=== PATIENT | female | born 1980 | race Caucasian/White ===

== ENCOUNTER 2023-12-20 07:59 | Outpatient (CLI) | payer OTHER, SELFPAY ==
--- NOTE | ~2023-12-20 | MM_ITS ---
EXAMINATION: MM screening donell BI w marky HISTORY: Screening mammogram TECHNIQUE: Craniocaudal and mediolateral oblique 3-D tomosynthesis images were obtained and synthetic 2-D images were generated. CAD analysis was submitted and interpreted. COMPARISON: No prior mammogram is available for comparison at this institution. BREAST PARENCHYMAL COMPOSITION:Dense: The breasts are heterogeneously dense, which may obscure small masses. FINDINGS: Questionable low-density obscured mass at the upper, outer left breast. No suspicious abnor mality in the right breast. IMPRESSION: Possible obscured low-density mass of the upper, outer left breast. Spot compression views and ultras ound are recommended for further evaluation. BI-RADS Category 0: Incomplete: Needs additional imaging evaluation. Reviewed, dictated and finalized at [facility]. IMPRESSION: Possible obscured low-density mass of the upper, outer left breast. Spot compre ssion views and ultrasound are recommended for further evaluation. BI-RADS Category 0: Incomplete: Needs additional imaging evaluation.
== END 2023-12-20 08:00 | disposition home or self-care (01) ==
LOC: ANHIMG 08:03
DX: Z12.31 Encounter for screening mammogram for malignant neoplasm of breast (principal); R92.8 Other abnormal and inconclusive findings on diagnostic imaging of breast
CPT/HCPCS: 77063; 77067

== ENCOUNTER 2024-01-13 10:42 | Outpatient (CLI) | payer OTHER, SELFPAY ==
--- NOTE | ~2024-01-13 | MMUS_ITS ---
EXAMINATION: MM diagnostic donell LT w marky, US breast LT complete HISTORY: Follow-up left breast asymmetries TECHNIQUE: Additional 3-D tomosynthesis images of the left breast were performed and synthetic 2-D im ages were generated. CAD analysis was submitted and interpreted. High resolution complete left breast ultrasound was performed. COMPARISON: 12/20/2023 BREAST PARENCHYMAL COMPOSITION: Dense: The breasts are heterogeneously dense, which may obscure small masses FINDINGS: MAMMOGRAPHIC FINDINGS: Dense: The breasts are heterogeneously dense, which may obscure small masses. There are no discrete m asses or architectural distortion. No suspicious calcifications. ULTRASOUND: Complete US of all 4 quadrants of the left breast and retroareolar region was reviewed. There are mul tiple cysts of the left breast, largest at 12:00, 1 cm from the nipple measuring up to 3.1 cm. No shante picious sonographic abnormalities to suggest malignancy. IMPRESSION: 1. No evidence for malignancy in the left breast. Benign findings. 2. Routine yearly screening mammogram and regular clinical breast examination are recommended. BI-RADS Category 2: Benign finding(s). Reviewed, dictated and finalized at location B. IMPRESSION: 1. No evidence for malignancy in the left breast. Benign findings. 2. Routine yearly screening mammogram and regular clinical breast examination a re recommended. BI-RADS Category 2: Benign finding(s).
== END 2024-01-13 10:43 | disposition home or self-care (01) ==
LOC: ANHIMG 10:43
DX: R92.8 Other abnormal and inconclusive findings on diagnostic imaging of breast (principal)
CPT/HCPCS: 76641; 77061; 77065; G0279

== ENCOUNTER 2024-06-08 12:28 | Inpatient (IN) | payer OTHER, SELFPAY ==
[2024-06-08] VITALS (9 sets, daily range): BP systolic 115–146; BP diastolic 58–94; PULSE 40–54; RESP 14–22; TEMP 36.4; O2SAT 98–100; BMI 29.3
--- NOTE | ~2024-06-08 | XR_ITS ---
EXAMINATION: XR chest 2V DATE: 06/08/2024 14:11 INDICATION: Chest pain since last night TECHNIQUE: PA and lateral views of the chest were obtained. COMPARISON: Chest radiograph dated 06/12/18 FINDINGS: The lungs remain clear with no focal airspace opacities, pulmonary edema, pleural effusion or pneumot horax. The cardiomediastinal silhouette is normal. Mild mid thoracic spondylosis. IMPRESSION: 1. No acute cardiopulmonary disease. Reviewed, dictated and finalized at location A. [facility] RN
--- NOTE | ~2024-06-08 | XR_ITS ---
EXAMINATION: XR ERCP DATE: 06/10/2024 15:33 INDICATION: Choledocholithiasis. TECHNIQUE: 3 spot fluoroscopic images of the right upper quadrant were obtained during endoscopic ret rograde cholangiopancreatography (ERCP). Fluoroscopy exposure time was 325 seconds. COMPARISON: Cholangiogram 06/09/2024 FINDINGS: The endoscope is in the second portion the duodenum. There are surgical clips from cholecys tectomy. There is contrast in the common duct. There is a wire in the common duct. The common duct is enlarged. IMPRESSION: 1. Enlarged common duct. Please refer to the ERCP procedure note for additional details. Reviewed, dictated and finalized at location A. [facility]
--- NOTE | ~2024-06-08 | CT_ITS ---
EXAMINATION: CT abdomen pelvis w con DATE: 06/17/2024 13:31 INDICATION: Leukocytosis. TECHNIQUE: Computed tomography (CT) of the abdomen and pelvis was performed without intravenous contr ast. Automated exposure control and iterative reconstruction technique were employed. The dose-length product was 678.26 mGy-cm. COMPARISON: CT abdomen and pelvis 06/12/2024 FINDINGS: The visualized portions of the lung bases demonstrate smooth septal thickening, consistent mild pulmonary edema. There is mild dependent atelectasis bilaterally. There are small pleural effusi ons. The heart size is normal. There is a trace pericardial effusion. The liver is normal. There are changes of cholecystectomy. The spleen is normal. There is fluid and fat stranding around the pancrea s with altered morphology of the border of the pancreas. The adrenal glands and kidneys are normal. T here is a 3.5 cm cyst in left ovary, likely a follicular cyst. There are no dilated loops of bowel. T he appendix is normal. There are no pathologically enlarged lymph nodes. There is a small volume of a scites. Body wall edema is noted. There is mild thoracic spondylosis. IMPRESSION: 1. Mild pulmonary edema. 2. Small pleural effusions. 3. Stable findings of acute pancreatitis with peripancreatic necrosis. 4. 3.5 cm cyst in left ovary, likely a follicular cyst. Reviewed, dictated and finalized at location A. ELING MACHINE OPERATOR
--- NOTE | ~2024-06-08 | US_ITS ---
EXAMINATION: US abdomen limited DATE: 06/08/2024 17:26 INDICATION: Right upper quadrant abdominal pain and elevated liver enzymes. TECHNIQUE: Multiple grayscale and Doppler ultrasound images of the abdomen were obtained. COMPARISON: CT dated 06/08/2024 FINDINGS: Visualized portion of the pancreatic body is normal in appearance. The pancreatic head and tail are o bscured. Liver has normal echogenicity and contour, with a smooth surface. No liver lesion identified . No intrahepatic biliary duct dilation suspected. Portal venous flow was seen in the hepatopetal, no rmal direction and has normal Doppler waveform. There is some hypoechoic sludge in the gallbladder. No definitive shadowing cholelithiasis identified however this may be due to the tiny size of the zan cified gallstones seen on the prior CT. Gallbladder is otherwise normal with no abnormal wall thicken ing. The proximal common bile duct measures 4-5 mm in diameter. The more distal common bile duct whic h appeared dilated to 8 mm on the immediately prior CT is obscured along the head of the pancreas. Pa yuko had received morphine precluding diagnostic assessment of a sonographic Harman sign. Visual is portions of the right kidney demonstrates normal contour and Before meals with no hydronephrosis. IMPRESSION: 1. Gallbladder sludge without evident shadowing cholelithiasis over this might be due to the relative ly tiny size of the few calcific stone seen on prior CT. 2. Normal proximal common bile duct measurement of 4-5 mm however the more distal duct which was dila chester to [address] is obscured. If there is continued clinical concern for biliary obstruction w ould consider MRCP for further evaluation. Reviewed, dictated and finalized at location A. O COMMUNICATIONS MECHANICIAN IMPRESSION: 1. Gallbladder sludge without evident shadowing cholelithiasis over this might be due to the relatively tiny size of the few calcific stone seen on prior CT. 2. Normal proximal common bile duct measurement of 4-5 mm however the more dist al duct which was dilated to [address] is obscured. If there is continue d clinical concern for biliary obstruction would consider MRCP for further eval uation.
--- NOTE | ~2024-06-08 | XR_ITS ---
EXAM: XR abdomen gastric tube insert DATE: 06/18/2024 15:01 HISTORY: NG Placement . COMPARISON: CT abdomen pelvis 06/17/2024. FINDINGS: Moderate diffuse reticular opacities in the lungs. NG tube, tip and side port project over the stomach. Cholecystomy clips. Normal upper abdominal bowel gas pattern. No organomegaly. No abnor mal upper abdominal calcification. Regional bones and soft tissues normal for age. IMPRESSION: NG tube, in good position. Moderate interstitial edema. Reviewed, dictated and finalized at location K. ER FEEDER
--- NOTE | ~2024-06-08 | XR_ITS ---
EXAMINATION: XR abdomen/kub 1V DATE: 06/15/2024 00:36 INDICATION: Small bowel obstruction. TECHNIQUE: A supine view of the abdomen on 2 radiographs was obtained. COMPARISON: CT abdomen and pelvis 06/12/2024 FINDINGS: There are no dilated loops of bowel. There is a small volume of stool in the colon. Surgica l clips in the right upper quadrant are likely from cholecystectomy. IMPRESSION: 1. Nonobstructive bowel gas pattern. Reviewed, dictated and finalized at location A. [employer]
--- NOTE | ~2024-06-08 | XR_ITS ---
EXAMINATION: XR chest 1V portable DATE: 06/14/2024 11:43 INDICATION: Pleural effusion. TECHNIQUE: A single frontal view of the chest was obtained. COMPARISON: Chest 2 views 06/08/2024, CT abdomen and pelvis 06/12/2024 FINDINGS: There are airspace opacities in left lower lung zone. There is a small left pleural effusio n. No pneumothorax. The heart size is normal. IMPRESSION: 1. Worsened airspace opacities in left lower lung zone, consistent with atelectasis versus pneumonia. 2. Small left pleural effusion. Reviewed, dictated and finalized at location A. ORY EXPERT IMPRESSION: 1. Worsened airspace opacities in left lower lung zone, consistent with atelect asis versus pneumonia. 2. Small left pleural effusion.
--- NOTE | ~2024-06-08 | XR_ITS ---
EXAMINATION: XR cholangiogram surg 1st inj DATE: 06/09/2024 17:50 INDICATION: Cholelithiasis. TECHNIQUE: 190 intraoperative fluoroscopic views of the abdomen were obtained. I was not present. Flu oroscopy exposure time was 30 seconds. COMPARISON: MRCP 06/09/2024 FINDINGS: There are surgical clips from cholecystectomy. There is a 4 mm stone in the distal common b ile duct. There are two 3 mm filling defects in the cystic duct. Contrast passes to the duodenum. IMPRESSION: 1. 4 mm stone in the distal common bile duct. 2. Two 3 mm filling defects in the cystic duct which may be gas bubbles or stones. Reviewed, dictated and finalized at location A. TURNER IMPRESSION: 1. 4 mm stone in the distal common bile duct. 2. Two 3 mm filling defects in the cystic duct which may be gas bubbles or ston es.
--- NOTE | ~2024-06-08 | MR_ITS ---
EXAMINATION: MR MRCP wo/w con/w 3D wo ind DATE: 06/09/2024 10:48 INDICATION: Epigastric pain. Transaminitis. TECHNIQUE: Magnetic resonance imaging (MRI) of the abdomen was performed without and with 14 mL Multi gary intravenous contrast. Sequences included coronal T2-weighted SS-FSE, coronal T2-weighted FS SS- FSE, coronal T2-weighted FS FIESTA, axial T2-weighted FS FIESTA, axial T2-weighted FIESTA, sagittal T 2-weighted SS-FSE, axial T1-weighted dual-echo FSPGR, axial T2-weighted SS-FSE, axial T1-weighted LAV A, axial T2-weighted STIR FSE. Thick-slab T2-weighted FRFSE-XL images were obtained for magnetic reso nance cholangiopancreatography (MRCP). Rotating maximum intensity projection 3-D reconstructions of t he volumetric data were created by the technologist. Postcontrast sequences included a time course of axial T1-weighted LAVA. COMPARISON: None. FINDINGS: ABDOMEN MRI: Heart size is normal. No effusion. Trace bilateral pleural effusions with T2 hyperintens e peripheral septal line thickening in the dependent lungs suggesting mild pulmonary edema. 2.2 x 1.8 cm cluster of a few small simple appearing cysts within intervening septations in the left breast wi th similar appearance to breast ultrasound performed on 01/13/2024. Multiple low signal intensity gall stones within the normal-appearing gallbladder. There is a low confluence of the cystic duct which is dilated to 4 mm in the distal common bile duct is also mildly dilated measuring up to 8 mm in diamet er. There is a 3-4 mm gallstone in the cystic duct. Liver is normal. Trace amount of perihepatic and perisplenic ascites. Spleen, pancreas, bilateral adrenal glands and kidneys are normal. Visualized po rtions of bowels are unremarkable. No pathologically enlarged abdominal lymphadenopathy. Bones are un remarkable with normal marrow signal throughout. ABDOMEN MRCP: The MRCP images are limited by motion artifact yielding no additional information beyond that obtaine d on the remaining MR sequences. IMPRESSION: 1. Cholelithiasis with 3-4 mm stone in the cystic duct which has a low confluence with the distal com mon bile duct. No dilation of the gallbladder to suggest a significant obstruction or acute cholecyst itis. 2. Mild pulmonary edema, trace bilateral pleural effusions and trace amount of perihepatic and perisp lenic ascites. Reviewed, dictated and finalized at location A. OL CUSTODIAN IMPRESSION: 1. Cholelithiasis with 3-4 mm stone in the cystic duct which has a low confluen ce with the distal common bile duct. No dilation of the gallbladder to suggest a significant obstruction or acute cholecystitis. 2. Mild pulmonary edema, trace bilateral pleural effusions and trace amount of perihepatic and perisplenic ascites.
--- NOTE | ~2024-06-08 | CT_ITS ---
CT of the Abdomen and Pelvis: Indication: Abdominal pain, post ERCP pancreatitis Technique: 2.5 mm axial scans were obtained through the abdomen and pelvis following intravenous adm inistration of 100 cc of Omnipaque 350. Dose reduction technique was used on this scan by utilizing a utomated exposure control and iterative reconstruction technique. The dose-length product (DLP) was 6 53.92 mGy-cm. COMPARISON: 06/10/2024 Findings: Scans through the lung bases demonstrate small to moderate right pleural effusion and smal l left pleural effusion. There is mild bibasilar atelectatic change. The liver, spleen, adrenals and kidneys are within normal limits. Status post cholecystectomy. There is extensive peripancreatic fluid/inflammatory change, compatible with acute pancreatitis, certainly worsened from prior exam. No evidence for pancreatic necrosis or pseudocyst. Fluid extends into the r ight paracolic gutter and pelvis. No evidence of aortic aneurysm. No lymphadenopathy. No bowel obstruction or bowel wall thickening. There is no evidence to suggest acute appendicitis. Images through the pelvis were performed. 3.6 cm left adnexal cyst present. Urinary bladder unremarka ble. No other pelvic mass seen. Impression: Acute pancreatitis, with significant interval worsening of peripancreatic fluid and inflammatory damian ge, with fluid extending into the right paracolic gutter and pelvis. No pancreatic necrosis or pseudo cyst. 3.6 cm left ovarian cyst. [id number] right pleural effusion and small left pleural effusion. Reviewed, dictated and finalized at [facility]. UTE RESOLUTION ANALYST Impression: Acute pancreatitis, with significant interval worsening of peripancreatic fluid and inflammatory change, with fluid extending into the right paracolic gutter and pelvis. No pancreatic necrosis or pseudocyst. 3.6 cm left ovarian cyst. [id number] right pleural effusion and small left pleural effusion.
--- NOTE | ~2024-06-08 | XR_ITS ---
XR chest 1V portable DATE: 06/14/2024 21:42 INDICATION: Labored breathing, increased shortness of breath TECHNIQUE: Portable upright AP chest on 06/14/2024 at 2134 hours COMPARISON: 06/14/2024 portable AP chest at 1139 hours FINDINGS: There are scattered bilateral patchy infiltrates, most prominent in the lower lung zones, i ncreased since 06/14/2024 at 1139 hours. Normal heart size. No hilar or mediastinal enlargement. Included skeletal structures are unremarkable. IMPRESSION: Scattered bilateral patchy pulmonary infiltrates, most prominent in the lower lobes, incr eased since earlier today, suggesting worsening bilateral pneumonia Reviewed, dictated and finalized at location A. UE AND GROOVE MACHINE SETTER IMPRESSION: Scattered bilateral patchy pulmonary infiltrates, most prominent in the lower lobes, increased since earlier today, suggesting worsening bilateral pneumonia
--- NOTE | ~2024-06-08 | XR_ITS ---
XR abdomen/kub 1V Ordering provider: Kyle Boothe MD History: . abd pain post ERCP . Comparison: None. FINDINGS: BOWEL: Contrast is seen in the right side of the colon. Nonobstructive bowel gas pattern. Contrast se en in the gallbladder. ORGANOMEGALY: None. SIGNIFICANT PATHOLOGIC CALCIFICATIONS: None. OTHER: No free air is seen under the diaphragm. Sagittal clips in the right upper quadrant. IMPRESSION: NO definite ACUTE ABDOMINAL FINDINGS. Contrast seen in the right side of the colon and in the gallbladder. Reviewed, dictated and finalized at location A. ATION SALES CONSULTANT
--- NOTE | ~2024-06-08 | CT_ITS ---
EXAMINATION: CTA chest PE protocol DATE: 06/15/2024 00:02 INDICATION: Shortness of breath. TECHNIQUE: Computed tomography angiography (CTA) of the chest was performed with 100 mL Omnipaque-350 intravenous contrast timed to evaluate the pulmonary arteries. Coronal maximum intensity projection 3D-reconstructions were created by the technologist. Automated exposure control and iterative reconst ruction technique were employed. The dose-length product was 296.65 mGy-cm. COMPARISON: None. FINDINGS: There is mild atelectasis in the lungs. There are small pleural effusions. The heart size i s normal. No pericardial effusion. There is no pulmonary embolus. There is fat stranding and fluid ar ound the pancreas, consistent with pancreatitis. There are changes of cholecystectomy. Body wall kathleen a is noted. There is mild thoracic spondylosis. IMPRESSION: 1. No pulmonary embolus. 2. Small pleural effusions. 3. Acute interstitial pancreatitis. Reviewed, dictated and finalized at location A. ERSAL GRINDER TOOL
--- NOTE | ~2024-06-08 | CT_ITS ---
EXAMINATION: CT abdomen pelvis w con DATE: 06/08/2024 15:04 INDICATION: Epigastric pain. Elevated liver enzymes. TECHNIQUE: Computed tomography (CT) of the abdomen and pelvis was performed with 100 mL Omnipaque-350 intravenous contrast. Automated exposure control and iterative reconstruction technique were employe d. The dose-length product was 437.56 mGy-cm. COMPARISON: None FINDINGS: Lung bases are clear. Heart size normal. No pericardial or pleural effusion. Minimal central intrahep atic biliary ductal dilation. Liver is otherwise normal. Tiny calcified gallstones in the dependent a spect of the normal-appearing gallbladder. There is mild dilation of the common bile duct measuring u p to 8 mm but without evident distal obstructing stone. No abnormal gallbladder wall thickening or pe richolecystic inflammatory stranding to elevate suspicion for acute cholecystitis. Pancreas, spleen, bilateral adrenal glands and kidneys are normal. Bowels including the appendix are normal. 3.7 cm lef t adnexal cyst. Bladder, uterus and right adnexa are unremarkable. No free intraperitoneal gas or flu id. No pathologically enlarged abdominal or pelvic lymphadenopathy. Mild lumbar levocurvature with mi ld spondylosis. IMPRESSION: 1. Cholelithiasis with mild dilation the common bile duct 8 mm in minimal central and hepatic biliary ductal dilation. No distal obstructing stone identified although could consider MRCP for more sensit tabatha evaluation as clinically indicated. 2. 3.7 cm left adnexal cyst. Reviewed, dictated and finalized at location A. IFIED DENTAL ASSISTANT IMPRESSION: 1. Cholelithiasis with mild dilation the common bile duct 8 mm in minimal centr al and hepatic biliary ductal dilation. No distal obstructing stone identified although could consider MRCP for more sensitive evaluation as clinically indica chester. 2. 3.7 cm left adnexal cyst.
--- NOTE | ~2024-06-08 | CT_ITS ---
EXAMINATION: CT abdomen pelvis w con DATE: 06/10/2024 21:36 INDICATION: Abdominal pain. TECHNIQUE: Computed tomography (CT) of the abdomen and pelvis was performed with 100 mL Omnipaque 350 intravenous contrast. Automated exposure control and iterative reconstruction technique were employe d. The dose-length product was 749.90 mGy-cm. COMPARISON: CT abdomen and pelvis 06/08/2024 FINDINGS: The visualized portions of lung bases demonstrate small pleural effusions. There is mild de pendent atelectasis bilaterally. The liver and spleen are normal. There are changes of cholecystectom y. The common duct is normal and measures 9 mm. There are foci of gas in the peritoneum and anterior abdominal wall, consistent with recent surgery. There is fat stranding around the pancreas, consisten t with acute interstitial pancreatitis. The adrenal glands and kidneys are normal. There is a 2.9 cm dominant follicle in the left ovary. There are no dilated loops of bowel. The appendix is normal. The re are no pathologically enlarged lymph nodes. There is physiologic fluid in the pelvis. There is mil d thoracic spondylosis. IMPRESSION: 1. Acute interstitial pancreatitis. 2. Small pleural effusions. Reviewed, dictated and finalized at location A. WARE SYSTEMS ANALYST
--- NOTE | 2024-06-08 12:31 | ECG_ITS ---
Test Date: 2024-06-08 12:37:17 Measurements Intervals [place] Rate: 50 P: 49 HI: 153 QRS: 28 QRSD: 78 T: 45 QT: 432 QTc: 396 Interpretive Statements SINUS BRADYCARDIA No previous ECG available for comparison Electronically Signed On 06-08-2024 21:21:04 WASHER ASSEMBLER by Roseline Zamudio M.D.
[2024-06-08 13:35] LABS: Basophils Percent Auto 0.3 % (0.2-1.2); Eosinophils Absolute Auto 0.1 K/mm3 (0-0.3); Eosinophils Percent Auto 1.1 % (0-4.4); Hematocrit 44.6 % (37.0-47.0); Hemoglobin 15.4 g/dL (12.0-15.0); Immature Granulocyte Absolute 0.02 K/mm3 (0.00-0.031); Immature Granulocyte Percent A 0.3 % (0-0.5); Lymphocytes Absolute Auto 1.22 K/mm3 (0.9-3.2); Lymphocytes Percent Auto 19.1 % (18.3-44.2); Mean Corpuscular HGB Conc 34.5 g/dl (32-36); Mean Corpuscular Hemoglobin 30.7 pg (26-34); Mean Corpuscular Volume 88.8 fl (80-100); Monocytes Absolute Auto 0.3 K/mm3 (0.1-0.6); Monocytes Percent Auto 4.1 % (2.6-8.5); Neutrophils Absolute Auto 4.8 K/mm3 (1.3-6.7); Neutrophils Percent Auto 75.1 % (45.5-73.1); Platelet Count Result 316 k/mm3 (150-375); Red Blood Count 5.02 M/mm3 (4.2-5.4); Red Cell Distribution Width 11.8 % (11.5-14.5); White Blood Count 6.4 K/mm3 (4.5-10.0)
[2024-06-08 13:52] LABS: Prothrombin Time 13.6 Seconds (11.1-14.7)
[2024-06-08 13:53] LABS: Partial Thromboplastin Time 24.1 Seconds (22.3-36.8)
[2024-06-08 13:57] LABS: Troponin I < 0.012 ng/mL (0.000-0.034)
[2024-06-08 13:59] LABS: Albumin Level 4.3 g/dL (3.5-5.1); Alkaline Phosphatase 161 U/L (38-126); Anion Gap 3 mmol/L (4-12); Bilirubin,Total 2.4 mg/dL (0.2-1.3); Blood Urea Nitrogen 14 mg/dL (7-17); Calcium 9.9 mg/dL (8.4-10.2); Carbon Dioxide 28 mmol/L (22-30); Chloride 106 mmol/L (98-107); Estimated Glomerular Filt Rate > 60; Glucose 129 mg/dL (65-110); Lipase 95 U/L (23-300); Potassium 3.7 mmol/L (3.4-5.0); Sodium 137 mmol/L (137-145)
[2024-06-08 14:11] LABS: Influenza A QL RT-PCR Negative (Negative); Influenza B QL RT-PCR Negative (Negative); RSV RNA, RT-PCR Negative (Negative); SARS-CoV-2 RNA PCR Negative (Negative)
[2024-06-08 14:41] LABS: Alanine Aminotransferase 812 U/L (6-35); Aspartate Amino Transferase 1378 U/L (14-36)
--- NOTE | 2024-06-08 15:03 | ED_ITS ---
HPI - Chest Pain General Chief Complaint: Chest Pain Stated Complaint: chest pain Time Seen by Provider: 06/08/24 14:39 History of Present Illness HPI narrative: 43 y/o female presents with epigastric abdominal pain that started last night at 8pm. patient states the pain increases with laying her left side. patient denies hx of heart issues. patient has a hx of kidney issues. patient also states she has been battling a URI for 4 days. no other complaints. Onset (ago): day(s) (5) Related Data Home Medications ?Medication ?Instructions ?Recorded ?Confirmed ?Last Taken ?Type No Home Medications 08/06/22 06/08/24 Unknown History Allergies Allergy/AdvReac Type Severity Reaction Status Date / Time ampicillin Allergy Severe Rash Verified 06/08/24 12:29 Review of Systems 2 Review of Systems: All systems reviewed & are unremarkable except as noted in HPI and below Cardiovascular: Cardiovascular: Reports chest pain Gastrointestinal: Gastrointestinal: Reports abdominal pain and Reports nausea PMFSH Past Medical History Medical History (Updated 06/08/24 @ 16:23 by Edwin Meadows APRN) Minimal change disease Nephrotic syndrome Proteinuria Social History Social History (Updated 08/06/22 @ 15:38 by Licha Irene [facility]) Smoking status: Never smoker Alcohol intake: current Drinks per week: 1 Substance use: never Do You Feel Safe in your Home?: Yes Lack of Transportation: No Lack of Food: Never True Current Housing: I Have Housing Concerned About Future Housing: No Difficulty Paying Gas/Electric Bills: No Difficulty Paying for Meds: No Currently Unemployed: No Education: Associate Degree Difficulty w/ Childcare or Family Care: No Spiritual care concerns: No Exam 2 Const: General: healthy appearing and no acute distress HENMT: Head: normal to inspection Eyes: Conjunctivae: conjunctivae normal Neck: Neck: normal visual inspection Chest: Chest palpation & inspection: tenderness sternum and xiphoid process Resp: Effort & Inspection: normal respiratory effort Cardio: Rate: bradycardic Rhythm: regular rhythm GI: GI Palp: Yes Tenderness to palpation present (GI) (epigastric) Back/Spine/Pelvis: Back: no CVA tenderness Skin: General skin exam: normal color Neuro: General: patient oriented x3 Extrem: General: normal to inspection Course Course Emergency Course: patient has elevated LFT's. CT scan shows cholelithiasis and mild dilation of cbd at 8mm. will order RUQ abdominal ultrasound Will admit the patient to GI via the hospitalist for further evaluation of transaminitis and MRCP. Patient accepted by her hospitalist service Consultations Consultation #1: Dr. Smith with GI Date: 06/08/24 Time: 16:05 Vital Signs Vital signs: Vital Signs Pulse Rate 50 L 06/08/24 12:31 Respiratory Rate 14 06/08/24 12:31 Blood Pressure 141/84 H 06/08/24 12:31 Pulse Oximetry 100 06/08/24 12:31 Temperature 36.4 C L 06/08/24 18:34 Pulse Rate 40 L 06/08/24 18:34 Respiratory Rate 15 06/08/24 18:34 Blood Pressure 125/80 06/08/24 18:34 Pulse Oximetry 100 06/08/24 18:34 Oxygen Delivery Room Air 06/08/24 14:38 MDM - Chest Pain MDM Narrative Medical decision making narrative: Patient will be admitted to hospitalist service with GI consult. MRCP ordered per GI's request. Differential Diagnosis Differential diagnosis: Likely other (gallbladder dysfunction vs acs vs pancreatitis vs GERD) Medical Records Data Medical records narrative: Patient was admitted for transaminitis and concerned for gallstone in CBD. patient accepted by hospitalist and GI. patient will be on telemetry r/t bradycardia Lab Data 06/08/24 13:28 06/08/24 13:28 Labs: Lab Results 06/08/24 Range/Units 13:28 WBC 6.4 (4.5-10.0) K/mm3 RBC 5.02 (4.2-5.4) M/mm3 Hgb 15.4 H (12.0-15.0) g/dL Hct 44.6 (37.0-47.0) % MCV 88.8 (80-100) fl MCH 30.7 (26-34) pg MCHC 34.5 (32-36) g/dl RDW 11.8 (11.5-14.5) % Plt Count 316 (150-375) k/mm3 MPV 9.0 (7.4-10.4) fl Immature Gran % (Auto) 0.3 (0-0.5) % Neut % (Auto) 75.1 H (45.5-73.1) % Lymph % (Auto) 19.1 (18.3-44.2) % [place] % (Auto) 4.1 (2.6-8.5) % Eos % (Auto) 1.1 (0-4.4) % Baso % (Auto) 0.3 (0.2-1.2) % Lymph # (Auto) 1.22 (0.9-3.2) K/mm3 [place] # (Auto) 0.3 (0.1-0.6) K/mm3 Eos # (Auto) 0.1 (0-0.3) K/mm3 Baso # (Auto) 0.0 (0.0-0.1) K/mm3 Abs Immat Gran (auto) 0.02 (0.00-0.031) K/mm3 Absolute Neuts (auto) 4.8 (1.3-6.7) K/mm3 Absolute Nucleated RBC 0.000 (0.0-0.012) K/mm3 Nucleated RBC % 0.0 (0.0-0.2) % PT 13.6 (11.1-14.7) Seconds INR 1.0 APTT 24.1 (22.3-36.8) Seconds Sodium 137 (137-145) mmol/L Potassium 3.7 (3.4-5.0) mmol/L Chloride 106 (98-107) mmol/L Carbon Dioxide 28 (22-30) mmol/L Anion Gap 3 L (4-12) mmol/L BUN 14 (7-17) mg/dL Creatinine 0.90 (0.7-1.0) mg/dL Estim Creat Clear Calc Not Reportable Estimated GFR > 60 (59 - ) Glucose 129 H (65-110) mg/dL Calcium 9.9 (8.4-10.2) mg/dL Total Bilirubin 2.4 H (0.2-1.3) mg/dL AST 1378 H (14-36) U/L ALT 812 H (6-35) U/L Alkaline Phosphatase 161 H (38-126) U/L Troponin I < 0.012 (0.000-0.034) ng/mL Total Protein 8.0 (6.3-8.2) g/dL Albumin 4.3 (3.5-5.1) g/dL Lipase 95 (23-300) U/L Influenza A (RT-PCR) Negative (Negative) Influenza B (RT-PCR) Negative (Negative) RSV (RT-PCR) Negative (Negative) SARS-CoV-2 RNA (RT-PCR) Negative (Negative) Discharge Plan Discharge Clinical Impression: Transaminitis, Acute epigastric pain Patient Disposition: Acute Care Hospital Condition: Stable Time of Disposition: 16:23
[2024-06-08] MEDS: SODIUM CHLORIDE 0.9% IV 1,000 ML 30 ML IV CONT (15:23)
[2024-06-08] MEDS: MORPHINE SULFATE (*CRX) 4 MG/ML INJ IV PUSH (15:24)
--- NOTE | 2024-06-08 17:15 | P.HP_ITS ---
H&P: HPI History of Present Illness Date/Time: 06/08/24 16:15 Chief Complaint: Epigastric pain. Narrative: This is a 43-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 The patient provides the following history. She had pizza for dinner last night and about 3 hours later she developed sudden onset epigastric pain which she halima cribes as sharp and occasionally tight and squeezing in nature with some radiation to the back. It is colicky in nature and she was able to sleep a few hours last night. Unfortunately the pain has been severe and constant since earlier this morning. Associated symptoms include nausea but no vomiting. Last bowel movement was yesterday morning and it was unremarkable. She also mentions having some sinus congestion the last few days. She denies fever, headache, neck ache, vomiting, melena, hematochezia, bloating, belching, exertional chest pain, shortness a breath, syncope, and near syncope. In the ED: she was afebrile on arrival and her blood pressures have been stable. Heart rate has ranged from the upper 30s to low 50s and she reports her baseline heart rate is in the 60s to low 70s. Labs were significant for WBC count of 6.4, hemoglobin 15.4, total bilirubin 2.4, AST 1378, ALT 812, alkaline phosphatase 161, troponin less than 0.012, lipase 95. She was negative for influenza, RSV, and COVID. CT of the abdomen and pelvis showed cholelithiasis with mild dilatation of the common bile duct measuring 8 mm and hepatic biliary ductal dilatation and a 3.7 cm left adnexal mass. She was given IV fluids, analgesics, and antiemetics and she is being admitted in this setting for further workup and GI consultation. Review of Systems Review of Systems: 12 systems were reviewed and are negativ e except for as per HPI. [facility] Past Medical History Medical History (Updated 06/08/24 @ 23:01 by Varsha Parrish PA-C) Minimal change disease Nephrotic syndrome Proteinuria Surgical History Surgical History (Updated 06/08/24 @ 23:01 by Varsha Parrish PA-C) History of biopsy of kidney Social History Social History (Updated 06/08/24 @ 22:59 by Varsha Parrish PA-C) Social History: Surrogate medical decision maker: Lobito Devlin, spouse. Code status: Full code. Smoking status: Never smoker Alcohol intake: current Drinks per week: 1 Substance use: never Do You Feel Safe in your Home?: Yes Lack of Transportation: No Lack of Food: Never True Current Housing: I Have Housing Concerned About Future Housing: No Difficulty Paying Gas/Electric Bills: No Difficulty Paying for Meds: No Currently Unemployed: No Education: Associate Degree Difficulty w/ Childcare or Family Care: No Spiritual care concerns: No Meds Home Medications and Allergies Home Medications ?Medication ?Instructions ?Recorded ?Confirmed ?Type No Home Medications 08/06/22 06/08/24 History Allergies Allergy/AdvReac Type Severity Reaction Status Date / Time ampicillin Allergy Severe Rash Verified 06/08/24 12:29 Vital Signs Vital Signs - 24 hr 06/08/24 12:31 06/08/24 13:05 06/08/24 14:38 Temperature 97.5 F L Pulse Rate 50 L 50 L Respiratory Rate 14 16 Blood Pressure 141/84 H 140/79 Pulse Oximetry 100 100 100 Oxygen Delivery Room Air Room Air 06/08/24 14:40 06/08/24 15:27 Temperature Pulse Rate 54 L 49 L Respiratory Rate 22 H Blood Pressure 146/82 H Pulse Oximetry 100 Oxygen Delivery Exam Narrative: General: Mildly ill-appearing female sitting up in bed in moderate pain. Weight: 66 kg. BMI: 29.4. HEENT: PERRL, EOMI. Sclera anicteric. Tacky mucous membranes. Neck: Supple. Respiratory: Lungs are clear to auscultation bilaterally. Cardiovascular: Bradycardic with normal S1-S2. Gastrointestinal: Abdomen is soft and nondistended with positive bowel sounds. She is tender to palpation throughout the upper abdomen. No guarding or rebound tenderness. Skin: Warm and dry. No rash or lesions on limited exam. Extremities: No cyanosis, clubbing, or significant edema. Radial and pedal p ulses intact. Neurological: Alert. Cranial nerves 2-12 are grossly intact. No gross focal deficits to casual conversation. Psychiatric: Cooperative with appropriate mood and flat affect. H&P: Results Labs Labs: Short CBC 06/08/24 Range/Units 13:28 WBC 6.4 (4.5-10.0) K/mm3 Hgb 15.4 H (12.0-15.0) g/dL Hct 44.6 (37.0-47.0) % Plt Count 316 (150-375) k/mm3 BMP 06/08/24 13:28 Sodium 137 Potassium 3.7 Chloride 106 Carbon Dioxide 28 BUN 14 Creatinine 0.90 Glucose 129 H Calcium 9.9 Cardiac Enzymes 06/08/24 Range/Units 13:28 Troponin I < 0.012 (0.000-0.034) ng/mL Liver Function 06/08/24 Range/Units 13:28 Total Bilirubin 2.4 H (0.2-1.3) mg/dL AST 1378 H (14-36) U/L ALT 812 H (6-35) U/L Alkaline Phosphatase 161 H (38-126) U/L Albumin 4.3 (3.5-5.1) g/dL Impressions Abdomen/Pelvis CT 06/08/24 15:14 IMPRESSION: 1. Cholelithiasis with mild dilation the common bile duct 8 mm in minimal central and hepatic biliary ductal dilation. No distal obstructing stone identified although could consider MRCP for more sensitive evaluation as clinically indicated. 2. 3.7 cm left adnexal cyst. Chest X-Ray 06/08/24 16:50 IMPRESSION: 1. No acute cardiopulmonary disease. Abdomen Ultrasound 06/08/24 17:38 IMPRESSION: 1. Gallbladder sludge without evident shadowing cholelithiasis over this might be due to the relatively tiny size of the few calcific stone seen on prior CT. 2. Normal proximal common bile duct measurement of 4-5 mm however the more distal duct which was dilated to [address] is obscured. If there is continued clinical concern for biliary obstruction would consider MRCP for further evaluation. Assessment and Plan Assessment and plan (1) Transaminitis: Code(s): R74.01 - Elevation of levels of liver transaminase levels Status: Acute (2) Common bile duct dilatation: Code(s): K83.8 - Other specified diseases of biliary tract Status: Acute (3) Acute epigastric pain: Code(s): R10.13 - Epigastric pain Status: Acute (4) Bradycardia: Code(s): R00.1 - Bradycardia, unspecified Status: Acute Plan The patient presented to the emergency department for evaluation of abdominal pain as detailed in HPI. Labs, imaging, EKG, and all reports were personally reviewed. LFTs are elevated CT scan shows elevated common bile duct and gallbladder sludge versus stones. Concerns were for possible choledocholithiasis an MRCP has been ordered for a.m.. She will be NPO after midnight for possible procedure depending on those results. Dr. Boothe has been consulted and his input is appreciated. Analgesics and antiemetics are available as needed. She is bradycardic but is relatively asymptomatic and has stable vital signs. Possibly related to increased vagal tone from pain. Monitor on telemetry overnight and check TSH. Her home medications will be reviewed and resumed as appropriate. Findings and treatment plan were discussed with the patient. Questions were solicited and answered to satisfaction. The patient's medical management will be taken over by the hospitalist team in a.m. Quality VTE Prophylaxis VTE prophylaxis: mechanical ordered If No VTE Prophylaxis Answer both mechanical and pharmacologic: Reason no pharmacologic proph: medical contraindication (may need procedure) The patient has been admitted under observation status. Hospitalist [facility] Advance Care Plan I have confirmed that the patient's Advanced Care Plan is present, code status is documented, or surrogate decision maker is listed in patient medical record.: Yes Medication Reconciliation I have utilized all available resources to obtain, update and review the patients current medications (includes all prescriptions, OTC, herbals, cannabis, and nutritional supplements).: Yes
--- NOTE | 2024-06-08 18:53 | ADMGEN ---
This patient, Rhonda Devlin, was admitted to Medical Room 247-. Patient/family oriented to hospital policies and general routines including ID bracelet, bed and alarms, visiting hours, pain management, procedures, bathroom and other care routines, personal items, smoking policy, room service/diet, and visiting hours. Information on how to activate the Rapid Response Team has been discussed. Patient/Family are encouraged to report perceived risks to care and to ask questions if they do not understand what they are told or what they should do.
[2024-06-08] MEDS: SODIUM CHLORIDE 0.9% IV 1,000 ML 100 ML IV CONT (19:10)
[2024-06-08] MEDS: ONDANSETRON INJ 4 MG/2 ML VIAL IV PUSH (19:10)
[2024-06-08 20:56] LABS: Troponin I < 0.012 ng/mL (0.000-0.034)
[2024-06-09] VITALS (18 sets, daily range): BP systolic 103–141; BP diastolic 68–89; PULSE 43–84; RESP 11–20; TEMP 36.2–36.6; O2SAT 96–100
--- NOTE | 2024-06-09 | ECHO_ITS ---
Patient Info Name: Rhonda Devlin Age: 43 years : 1980 Gender: Female Ht: 59 in Wt: 145 lbs BSA: 1.68 m2 HR: 45 bpm BP: 125 / 79 mmHg Heart Rhythm: Sinus Rhythm Technical Quality: Good Exam Date: 06/09/2024 12:49 PM Exam Location: Echo Lab Exam Room: [facility] Patient Status: Inpatient Admit Date: 06/08/2024 Staff Ordering Physician: Varsha Parrish PA-C Services Manager: Jessica Swenson RDCS Attending Provider: Christie Marte PA-C Referring Physician: Shivani JEAN; Exam Type: CA echo doppler color flow Study Info Complete two-dimensional, color flow and Doppler transthoracic echocardiogram is performed. Summary 1. Left ventricular chamber dimension is normal. 2. Left ventricular systolic function is normal with an ejection fraction by Biplane Method of Discs of 65 %. 3. The left ventricular diastolic function is grade II diastolic dysfunction. 4. Right ventricular systolic function is normal. 5. Left atrial chamber dimension is mildly enlarged. 6. There is mild aortic valve regurgitation. 7. There is mild to moderate mitral valve regurgitation. 8. There is mild tricuspid valve regurgitation. Left Ventricle Left ventricular chamber dimension is normal. There is no increased left ventricular wall thickness. The left ventricular diastolic function is grade II diastolic dysfunction. Left ventricular systolic function is normal with an ejection fraction by Biplane Method of Discs of 65 %. Right Ventricle Right ventricular chamber dimension is normal. Right ventricular systolic function is normal. Left Atria Left atrial chamber dimension is mildly enlarged. Right Atria Right atrial chamber dimension is normal. Atrial Septum Intact interatrial septum visualized by color flow imaging. Aortic Valve The aortic valve is trileaflet. There is no aortic valve stenosis. There is mild aortic valve regurgitation. Pulmonic Valve The pulmonic valve is not well visualized. There is trace pulmonic regurgitation. Mitral Valve There is mild to moderate mitral valve regurgitation. Tricuspid Valve There is mild tricuspid valve regurgitation. Pericardium/Pleural There is no pericardial effusion. Inferior Vena Cava Normal inferior vena cava with >50% collapse upon inspiration consistent with normal right atrial pressure, 3 mmHg. Aorta The aortic root size at the sinus of Valsalva is normal. Left Ventricular Outflow Tract Name Value Normal LVOT 2D LVOT Diameter 2.1 cm LVOT Doppler LVOT Peak Gradient 5 mmHg LVOT Mean Gradient 3 mmHg LVOT VTI 30 cm LVOT VTI/AV VTI Ratio 0.9 LVOT Stroke Volume 100 ml LVOT CO 6.1 l/min LVOT CI 3.6 l/min/m2 Pulmonic Valve Name Value Normal PV Doppler PV Peak Gradient 4 mmHg PV Regurgitation Doppler OK Peak End Diastolic Velocity 101 cm/s Mitral Valve Name Value Normal MV Doppler MV Peak Gradient 7 mmHg MV Mean Gradient 1 mmHg MV Decel [place] 865 cm/s2 MV PHT 42 ms MV Area (PHT) 5.3 cm2 4.0-5.0 MV Area (Cont Eq VTI) 2.8 cm2 MV Regurgitation Doppler MR Peak Gradient 215 mmHg MV Diastolic Function MV E Peak Velocity 124 cm/s MV A Peak Velocity 70 cm/s MV E/A 1.8 MV Decel Time 144 ms MV Annular TDI MV E/e' (Septal) 13.8 <=8.0 MV E/e' (Lateral) 13.0 <=8.0 MV E/e' (Average) 13.4 Tricuspid Valve Name Value Normal TV Regurgitation Doppler TR Peak Velocity 274 cm/s TR Peak Gradient 30 mmHg Estimated PAP/RSVP RA Pressure 3 mmHg <=5 PA Systolic Pressure 33 mmHg <36 RV Systolic Pressure 33 mmHg <36 Aortic Valve Name Value Normal AV Doppler AV Peak Velocity 146 cm/s AV Peak Gradient 8 mmHg AV Mean Gradient 3 mmHg AV VTI 33 cm AV Area (Cont Eq VTI) 3.0 cm2 >=3.0 AV Area (Cont Eq Johnathon) 2.6 cm2 AV Regurgitation 2D LVOT Area 3.4 cm2 AV Regurgitation Doppler AR Decel Time 3,024 ms AR Decel [place] 153 cm/s2 AR PHT 877 ms Ventricles Name Value Normal LV Dimensions 2D/MM IVS Diastolic Thickness (2D) 0.6 cm 0.6-1.0 LVID Diastole (2D) 4.1 cm 3.8-5.2 LVIW Diastolic Thickness (2D) 0.7 cm 0.6-0.9 LVID Systole (2D) 3.0 cm 2.2-3.5 LVOT Diameter 2.1 cm LV Mass (2D Cubed) 72.30 g 67.00-162.00 LV Mass Index (2D Cubed) 43 g/m2 43-95 Relative Wall Thickness (2D) 0.32 LV Fractional Shortening/Ejection Fraction 2D/MM LV Fractional Shortening (2D) 26 % 27-45 LV EF (2D Teicholz) 52 % 54-74 LV Diastolic Volume (4C MOD) 114 ml LV EF (4C MOD) 74 % LV Diastolic Volume (2C MOD) 115 ml LV EF (2C MOD) 55 % LV Diastolic Volume (BP MOD) 118 ml 46-106 LV Diastolic Volume Index (BP MOD) 70 ml/m2 29-61 LV Systolic Volume (BP MOD) 41 ml 14-42 LV Systolic Volume Index (BP MOD) 25 ml/m2 8-24 LV EF (BP MOD) 65 % 54-74 LV Diastolic Length (4C) 7.4 cm LV Systolic Length (4C) 5.6 cm LV Stroke Volume (4C MOD) 82 ml Atria Name Value Normal LA Dimensions LA Dimension (2D) 3.3 cm 2.7-3.8 LA Dimen Index (2D) 2.0 cm/m2 LA Volume (4C A-L) 48 ml LA Volume (BP A-L) 55 ml RA Dimensions RA Area (4C) 12.5 cm2 <=18.0 Report Signatures
[2024-06-09 05:23] LABS: Hematocrit 35.8 % (37.0-47.0); Hemoglobin 12.2 g/dL (12.0-15.0); Mean Corpuscular HGB Conc 34.1 g/dl (32-36); Mean Corpuscular Hemoglobin 31.1 pg (26-34); Mean Corpuscular Volume 91.3 fl (80-100); Mean Platelet Volume 9.5 fl (7.4-10.4); Platelet Count Result 242 k/mm3 (150-375); Red Blood Count 3.92 M/mm3 (4.2-5.4); Red Cell Distribution Width 12.1 % (11.5-14.5); White Blood Count 4.6 K/mm3 (4.5-10.0)
[2024-06-09] MEDS: SODIUM CHLORIDE 0.9% IV 1,000 ML 100 ML IV CONT ×2 (05:26→19:10)
[2024-06-09 05:40] LABS: Alanine Aminotransferase 558 U/L (6-35); Albumin Level 3.3 g/dL (3.5-5.1); Alkaline Phosphatase 125 U/L (38-126); Anion Gap 4 mmol/L (4-12); Aspartate Amino Transferase 482 U/L (14-36); Blood Urea Nitrogen 10 mg/dL (7-17); Calcium 8.1 mg/dL (8.4-10.2); Carbon Dioxide 25 mmol/L (22-30); Chloride 110 mmol/L (98-107); Estimated Glomerular Filt Rate > 60; Glucose 81 mg/dL (65-110); Lipase 33 U/L (23-300); Magnesium 2.1 mg/dL (1.6-2.3); Potassium 3.6 mmol/L (3.4-5.0); Sodium 139 mmol/L (137-145)
--- NOTE | 2024-06-09 06:50 | P.PNIM_ITS ---
Progress Note: A&P Assessment and Plan (1) Cholelithiasis: Code(s): K80.20 - Calculus of gallbladder without cholecystitis without obstruction Status: Acute Assessment and Plan: - Elevated LFTs, downtrending - Abdomen/Pelvis CT 1. Cholelithiasis with mild dilation the common bile duct 8 mm in minimal central and hepatic biliary ductal dilation. No distal obstructing stone identified although could consider MRCP for more sensitive evaluation as clinically indicated. 2. 3.7 cm left adnexal cyst. - Abdomen Ultrasound 1. Gallbladder sludge without evident shadowing cholelithiasis over this might be due to the relatively tiny size of the few calcific stone seen on prior CT. 2. Normal proximal common bile duct measurement of 4-5 mm however the more distal duct which was dilated to [address] is obscured. - MRCP 1. Cholelithiasis with 3-4 mm stone in the cystic duct which has a low confluence with the distal common bile duct. No dilation of the gallbladder to suggest a significant obstruction or acute cholecystitis. 2. Mild pulmonary edema, trace bilateral pleural effusions and trace amount of perihepatic and perisplenic ascites. - IV pain management - Gentle IV fluid resuscitation - Diet:NPO - Monitor vital signs, I and O's, check stool output, neuro status and patient is a fall risk - Monitor serum electrolytes and CBC - Consult GI for further evaluation, appreciate assistance and recommendation See MRCP result above - Consult surgery for further evaluation, appreciate assistance and recommendation Recommending laparoscopic cholecystectomy with DR. Paulino. To be kept NPO with IV fluids in case she is added on to surgery schedule later today. (2) Transaminitis: Code(s): R74.01 - Elevation of levels of liver transaminase levels Status: Acute Assessment and Plan: LFTs on admission: Tot bili 2.4, AST 1378, ALT 812, Alk phos 161 Likely secondary to common bile duct and hepatic biliary ductal dilation as seen on imaging - LFTs on am labs: Tot bili 1.0, AST 482, ALT 558, Alk phos 125 - See cholelithiasis plan #1 - Monitor (3) Common bile duct dilatation: Code(s): K83.8 - Other specified diseases of biliary tract Status: Acute Assessment and Plan: see choledocholithiasis plan #1 (4) Bradycardia: Code(s): R00.1 - Bradycardia, unspecified Status: Acute Assessment and Plan: Sinus bradycardia with a heart rate in the 40-50s. No significant bradycardia, pauses, or bradyarrhythmias demonstrated on telemetry. Blood pressure is stable and she is asymptomatic. 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 Patient is pleasant lying comfortably in bed. She continues to have mild tenderness but otherwise pain has significantly improved. She has no other complaints denying chest pain, shortness of breath, palpitations, fatigue, lightheadness/dizziness, nausea/vomiting. Review of Systems Review of Systems: 12 systems were reviewed and are negativ e except for as per HPI. Exam Narrative: AF HR 45 RR 16 SpO2 98 BP 118/68 General: female in no acute respiratory distress who is nontoxic appearing, lying semi recumbent in bed. HEENT: Normocephalic. Atraumatic. Extraocular movement intact. Sclera clear and anicteric. No facial asymmetry. Chest: Lungs are clear to auscultation bilaterally. No wheezes or crackles. CV: Heart was bradycardic with regular rhythm. S1-S2. No murmurs, gallops, or rubs. Abd: Abdomen was soft. Mild tenderness throughout worse in RUQ. Nondistended. Positive bowel sounds. No organomegaly or masses. Ext: No clubbing, cyanosis, or edema. 2+ DP pulses bilaterally. Neuro: Patient is alert and oriented x4. Cranial nerves 2-12 are intact. Speech is clear. Objective Data Vital Signs Vital Signs: Vital Signs - 24 hr 06/08/24 12:31 06/08/24 13:05 06/08/24 14:38 Temperature 97.5 F L Pulse Rate 50 L 50 L Respiratory Rate 14 16 Blood Pressure 141/84 H 140/79 Pulse Oximetry 100 100 100 Oxygen Delivery Room Air Room Air 06/08/24 14:40 06/08/24 15:27 06/08/24 17:59 Temperature 97.5 F L Pulse Rate 54 L 49 L 54 L Respiratory Rate 22 H 15 Blood Pressure 146/82 H 134/94 H Pulse Oximetry 100 99 Oxygen Delivery 06/08/24 18:34 06/08/24 20:00 06/08/24 20:30 Temperature 97.5 F L 97.6 F Pulse Rate 40 L 41 L 41 L Respiratory Rate 15 16 16 Blood Pressure 125/80 115/58 L Pulse Oximetry 100 98 98 Oxygen Delivery Room Air 06/09/24 00:00 06/09/24 04:00 06/09/24 05:05 Temperature 97.6 F Pulse Rate 43 L 43 L 45 L Respiratory Rate 16 Blood Pressure 125/79 Pulse Oximetry 98 Oxygen Delivery Intake/Output Intake/Output: Intake & Output 06/06/24 06/07/24 06/08/24 06/09/24 23:59 23:59 23:59 23:59 Intake Total 1000 Balance 1000 Meds/Results Medications: Active Medications Generic Name Dose Route Start Last Admin Trade Name Freq PRN Reason Stop Dose Admin Sodium Chloride 1,000 mls @ 30 mls/hr 06/08/24 14:46 06/08/24 15:23 Normal Saline Iv IV CONT 06/09/24 14:45 30 mls/hr .Q24H STA Administration Sodium Chloride 1,000 mls @ 100 mls/hr 06/08/24 16:25 06/09/24 05:26 Normal Saline Iv IV CONT 100 mls/hr .Q10H MALINA Administration Morphine Sulfate 2 mg 06/08/24 16:23 Morphine Sulfate (*Crx) 2 Mg/Ml Inj IV PUSH Q4H PRN Pain Rated 7-10 Perflutren Lipid Microsphere 0 ml 06/08/24 17:08 Perflutren Lipid Microspheres 1.5 Ml Vial Diluted To 10 Ml Total Volume IV PUSH 06/11/24 17:09 ONCE PRN adequate visualization Protocol Radiology Results: ITS Impressions Abdomen/Pelvis CT 06/08/24 15:14 IMPRESSION: 1. Cholelithiasis with mild dilation the common bile duct 8 mm in minimal central and hepatic biliary ductal dilation. No distal obstructing stone identified although could consider MRCP for more sensitive evaluation as clinically indicated. 2. 3.7 cm left adnexal cyst. Chest X-Ray 06/08/24 16:50 IMPRESSION: 1. No acute cardiopulmonary disease. Abdomen Ultrasound 06/08/24 17:38 IMPRESSION: 1. Gallbladder sludge without evident shadowing cholelithiasis over this might be due to the relatively tiny size of the few calcific stone seen on prior CT. 2. Normal proximal common bile duct measurement of 4-5 mm however the more distal duct which was dilated to [address] is obscured. If there is continued clinical concern for biliary obstruction would consider MRCP for further evaluation. Labs Labs: Laboratory Results - last 24 hr 06/08/24 06/08/24 06/09/24 13:28 20:21 04:46 WBC 6.4 4.6 RBC 5.02 3.92 L Hgb 15.4 H 12.2 D Hct 44.6 35.8 L MCV 88.8 91.3 MCH 30.7 31.1 MCHC 34.5 34.1 RDW 11.8 12.1 Plt Count 316 242 MPV 9.0 9.5 Immature Gran % (Auto) 0.3 Neut % (Auto) 75.1 H Lymph % (Auto) 19.1 Cherry % (Auto) 4.1 Eos % (Auto) 1.1 Baso % (Auto) 0.3 Lymph # (Auto) 1.22 Cherry # (Auto) 0.3 Eos # (Auto) 0.1 Baso # (Auto) 0.0 Abs Immat Gran (auto) 0.02 Absolute Neuts (auto) 4.8 Absolute Nucleated RBC 0.000 Nucleated RBC % 0.0 PT 13.6 INR 1.0 APTT 24.1 Sodium 137 139 Potassium 3.7 3.6 Chloride 106 110 H Carbon Dioxide 28 25 Anion Gap 3 L 4 BUN 14 10 Creatinine 0.90 0.90 Estim Creat Clear Calc Not Reportable Not Reportable Estimated GFR > 60 > 60 Glucose 129 H 81 Calcium 9.9 8.1 L Magnesium 2.0 2.1 Total Bilirubin 2.4 H 1.0 AST 1378 H 482 H ALT 812 H 558 H Alkaline Phosphatase 161 H 125 Troponin I < 0.012 < 0.012 Total Protein 8.0 6.0 L Albumin 4.3 3.3 L Lipase 95 33 TSH (Reflex) 1.680 Influenza A (RT-PCR) Negative Influenza B (RT-PCR) Negative RSV (RT-PCR) Negative SARS-CoV-2 RNA (RT-PCR) Negative Quality VTE Prophylaxis VTE prophylaxis: mechanical ordered
--- NOTE | 2024-06-09 08:21 | P.CONGI_ITS ---
<Statement entered by Kyle Boothe MD - 06/09/24 14:45> I, Kyle Boothe MD, have provided a substantive portion of the care of this patient and discussed the patient with my Nurse Practitioner. I have reviewed any new relevant radiographic and laboratory results including medications. I agree with her documentation as noted below.?I personally performed the medical decision making and much of the history and exam for this encounter. briefly, she is here with onset of severe abdominal pain, noted to have elevated liver enzymes. MRCP noted cholelithiasis with 3 mm stone in cystic duct but normal bile duct otherwise, she is feeling better, no pancreatitis. Also presented with bradycardia and evaluated by cardiology. Surgery will take for her lap felicia and then IOC to assess cystic duct and decide if ERCP will be required. Will follow along. Assessment and Plan Assessment and plan (1) Cholelithiasis: Qualifiers: Biliary obstruction: with biliary obstruction Cholecystitis presence: w ithout cholecystitis Cholelithiasis location: gallbladder and bile duct Q ualified Code(s): K80.71 - Calculus of gallbladder and bile duct without cholecystitis with obstruction Code(s): K80.20 - Calculus of gallbladder without cholecystitis without obstruction Status: Acute (2) Acute epigastric pain: Code(s): R10.13 - Epigastric pain Status: Acute (3) Common bile duct dilatation: Code(s): K83.8 - Other specified diseases of biliary tract Status: Acute (4) Elevated LFTs: Code(s): R79.89 - Other specified abnormal findings of blood chemistry Status: Acute Plan 1. Cholelithiasis/common bile duct dilation/epigastric pain/elevated LFT's: P atient with acute onset of severe epigastric pain that started on Saturday. Patient presented to the ER 06/08 and workup showed gallstones and mildly dilated common bile duct and elevated LFTs. LFT's have trended down since admission and the patients pain has significantly decreased but hasn't resolved, now rates it a 2 out of 10. Total bilirubin 2.4-->1.0, AST 1378-->482, ALT 812-->558, Alk Phos 161-->125. Lipase normal at 33. CBC normal without leukocytosis. No prior history of LFT elevation or liver disease. No prior history of gallbladder or pancreas issues. * Given improvement and pain in LFT improvement patient likely had a stone which has since passed. MRCP pending * continue to trend LFTs * Continue supportive care * Consult surgery to further discuss treatment plan which may require inpatient versus outpatient cholecystectomy to prevent further episodes * further recommendations to follow MRCP, if biliary obstruction or persistent ductal dilation noted will plan for ERCP Thank you for allowing me to share in the care of this very nice patient. This report may have been done utilizing a voice recognition system. Attempts have been made to correct errors. However, there may be uncorrected grammatical, spelling, and recognition errors present. GI Consult Note Consult date/time: 06/09/24 08:21 Reason for consult: Elevated LFT's HPI: This is a 43 year old female with PMSH of nephrotic syndrome but otherwise unremarkable medical surgical Hx. She presented to the ER yesterday with complaints of epigastric pain. On workup patient was found to have gallstones and elevated LFT's. GI has been consulted for elevated LFT's. The patient reports that she started having an acute onset of severe epigastric pain around 8 PM on Saturday while she was sitting and watching TV, she had last eaten at 3 PM that afternoon. The pain was sudden in onset and severe, rated 8- 9/10 in intensity. She did not have any nausea or vomiting initially, but did have one episode of vomiting yesterday evening which improved with Zofran. She denies any bloating, dysphagia, odynophagia, or significant heartburn. She will occasionally take Tums for mild heartburn but reports that it did not help with this pain. Her appetite has been normal other than when she was not feeling well. She denies any unintentional weight loss. She has regular bowel movements every other day, which are formed. She denies any urgency, fecal incontinence, hematochezia or melena. She takes Tylenol as needed for pain but avoids NSAIDs due to her history of kidney problems. She has never had a colonoscopy or EGD but reports that her doctor has requested a screening colonoscopy which she has not yet scheduled. She has no prior surgeries and denies any family history of GI cancers other than an aunt with colon cancer. She does not smoke or drink alcohol. Her mother still has her gallbladder. ENDOSCOPY HISTORY: Patient has never had an EGD or colonoscopy LABS AND STOOL STUDIES: Labs 06/09/2024: Sodium 139, Potassium 3.6, BUN 10, creatinine 0.90, GFR > 60. WBC 5, HGB 12, HCT 36, MCV 91, platelets 242. Total bilirubin 1.0, AST 482, ALT 558, alkaline phosphatase 125, albumin 3.3, lipase 33. Calcium 8.7, magnesium 2.1, TSH 1.680 Labs 06/08/2024: Hgb 15, Hct 45, total bilirubin 2.4, AST 1378, ALT 812, and Alk Phos 125. IMAGING: Abdominal Ultrasound 06/08/2024 IMPRESSION: 1. Gallbladder sludge without evident shadowing cholelithiasis over this might be due to the relatively tiny size of the few calcific stone seen on prior CT. 2. Normal proximal common bile duct measurement of 4-5 mm however the more distal duct which was dilated to [address] is obscured. If there is continued clinical concern for biliary obstruction would consider MRCP for further evaluation. CT abd/pelvis w/contrast 06/08/2024 IMPRESSION: 1. Cholelithiasis with mild dilation the common bile duct 8 mm in minimal central and hepatic biliary ductal dilation. No distal obstructing stone identified although could consider MRCP for more sensitive evaluation as clinically indicated. 2. 3.7 cm left adnexal cyst. Review of Systems 2 Constitutional: Constitutional: Reports as per HPI ENT: Reports as per HPI Cardiovascular: Cardiovascular: Reports as per HPI, Denies chest pain and Denies dyspnea Respiratory: Respiratory: Denies cough and Denies dyspnea Gastrointestinal: Gastrointestinal: Reports as per HPI and Reports abdominal pain (epigastric pain with palpation otherwise pain has decreased to a 2/10) Musculoskeletal: Musculoskeletal: Reports as per HPI Integumentary/Breasts: Skin/Breast: Reports as per HPI Psychiatric: Psychiatric: Reports as per HPI Endocrine: Endocrine: Reports no additional endocrine complaints Hematologic/Lymphatic: Hematologic/Lymphatic: Reports no additional hematologic/lymphatic complaints [facility] Past Medical History Medical History (Updated 06/09/24 @ 08:23 by Terri Lugo APRN) Minimal change disease Nephrotic syndrome Proteinuria Surgical History Surgical History (Updated 06/08/24 @ 23:01 by Varsha Parrish PA-C) History of biopsy of kidney Social History Social History (Updated 06/08/24 @ 22:59 by Varsha Parrish PA-C) Social History: Surrogate medical decision maker: Lobito Devlin, spouse. Code status: Full code. Smoking status: Never smoker Alcohol intake: current Drinks per week: 1 Substance use: never Do You Feel Safe in your Home?: Yes Lack of Transportation: No Lack of Food: Never True Current Housing: I Have Housing Concerned About Future Housing: No Difficulty Paying Gas/Electric Bills: No Difficulty Paying for Meds: No Currently Unemployed: No Education: Associate Degree Difficulty w/ Childcare or Family Care: No Spiritual care concerns: No Meds Home Medications and Allergies Home Medications ?Medication ?Instructions ?Recorded ?Confirmed ?Type No Home Medications 08/06/22 06/08/24 History Allergies Allergy/AdvReac Type Severity Reaction Status Date / Time ampicillin Allergy Severe Rash Verified 06/08/24 12:29 Vital Signs Vital Signs - 24 hr 06/08/24 12:31 06/08/24 13:05 06/08/24 14:38 Temperature 97.5 F L Pulse Rate 50 L 50 L Respiratory Rate 14 16 Blood Pressure 141/84 H 140/79 Pulse Oximetry 100 100 100 Oxygen Delivery Room Air Room Air 06/08/24 14:40 06/08/24 15:27 06/08/24 17:59 Temperature 97.5 F L Pulse Rate 54 L 49 L 54 L Respiratory Rate 22 H 15 Blood Pressure 146/82 H 134/94 H Pulse Oximetry 100 99 Oxygen Delivery 06/08/24 18:34 06/08/24 20:00 06/08/24 20:30 Temperature 97.5 F L 97.6 F Pulse Rate 40 L 41 L 41 L Respiratory Rate 15 16 16 Blood Pressure 125/80 115/58 L Pulse Oximetry 100 98 98 Oxygen Delivery Room Air 06/09/24 00:00 06/09/24 04:00 06/09/24 05:05 Temperature 97.6 F Pulse Rate 43 L 43 L 45 L Respiratory Rate 16 Blood Pressure 125/79 Pulse Oximetry 98 Oxygen Delivery Exam 2 Const: General: cooperative, healthy appearing, comfortable, no acute distress and well developed Orientation/consciousness: oriented to person, oriented to place, oriented to time and patient oriented x3 HENMT: Head: normal to inspection, normocephalic and atraumatic Mouth: Yes Normal oral and palatal mucosa present and Yes moist mucous membranes Eyes: General: appearance normal, both eyes and all related structures C onjunctivae: conjunctivae normal Sclera: sclerae normal Pupils: Equal, round and reactive pupils present Neck: Neck: normal visual inspection Chest: Chest palpation & inspection: normal inspection of the chest Resp: Effort & Inspection: normal respiratory effort and able to speak in complete sentences Auscultation: clear to auscultation bilaterally Cardio: Jugular venous distension: no JVD Rate: regular rate Rhythm: r egular rhythm Heart sounds: S1 normal heart sound present and S2 normal heart sound present GI: Inspection: normal to inspection GI Palp: Yes Soft to palpation, Yes Tenderness to palpation present (GI) (mild epigastric tenderness with palpation) and Yes No hepatosplenomegaly present Auscultation: normal bowel sounds R ectal Exam: deferred Skin: General skin exam: normal color and no rashes or lesions noted Neuro: General: oriented to person, oriented to place, oriented to time and patient oriented x3 Cranial nerves: Yes Equal, round and reactive pupils present Speech: normal speech Extrem: General: normal to inspection and no clubbing, cyanosis or edema Psych: Appearance: grossly normal and well kempt Affect: normal affect Results Labs 06/09/24 04:46 06/09/24 04:46 Labs: Short CBC 06/08/24 06/09/24 Range/Units 13:28 04:46 WBC 6.4 4.6 (4.5-10.0) K/mm3 Hgb 15.4 H 12.2 D (12.0-15.0) g/dL Hct 44.6 35.8 L (37.0-47.0) % Plt Count 316 242 (150-375) k/mm3 BMP 06/08/24 06/09/24 13:28 04:46 Sodium 137 139 Potassium 3.7 3.6 Chloride 106 110 H Carbon Dioxide 28 25 BUN 14 10 Creatinine 0.90 0.90 Glucose 129 H 81 Calcium 9.9 8.1 L Cardiac Enzymes 06/08/24 06/08/24 Range/Units 13:28 20:21 Troponin I < 0.012 < 0.012 (0.000-0.034) ng/mL Liver Function 06/08/24 06/09/24 Range/Units 13:28 04:46 Total Bilirubin 2.4 H 1.0 (0.2-1.3) mg/dL AST 1378 H 482 H (14-36) U/L ALT 812 H 558 H (6-35) U/L Alkaline Phosphatase 161 H 125 (38-126) U/L Albumin 4.3 3.3 L (3.5-5.1) g/dL
--- NOTE | 2024-06-09 08:46 | P.CONCA_ITS ---
Assessment and Plan Assessment and plan (1) Bradycardia: Code(s): R00.1 - Bradycardia, unspecified Status: Acute Assessment and Plan: She has sinus bradycardia with a heart rate in the 40's - 50's. No significant bradycardia, pauses, or bradyarrhythmias demonstrated on telemetry. Blood pressure is stable and she is asymptomatic. * TSH normal * Echo will be ordered and reviewed * Check apnea link tonight * Continue to monitor on telemetry * At this point no other cardiac workup is being recommended * Cardiology will sign off, please call with questions. (2) Cholelithiasis: Qualifiers: Biliary obstruction: with biliary obstruction Cholecystitis presence: w ithout cholecystitis Cholelithiasis location: gallbladder and bile duct Q ualified Code(s): K80.71 - Calculus of gallbladder and bile duct without cholecystitis with obstruction Code(s): K80.20 - Calculus of gallbladder without cholecystitis without obstruction Status: Acute Assessment and Plan: GI and general surgery consulted History of Present Illness History of Present Illness Consult date/time: 06/09/24 08:46 Requesting physician: Varsha Parrish PA-C Consult reason: Other (bradycardia) Reason For Visit: tranmanitis Narrative: Rhonda Devlin is a 43 year old female with past medical history of nephrotic syndrome. She came to the hospital because of epigastric pain and nausea. She has been found to be bradycardic; cardiology is consulted for this reason. She does not have any cardiac history and states her baseline heart rate ranges from 60's - 80's. She denies any syncope or pre-syncope. Her telemetry shows sinus bradycardia with no significant bradycardia or any pauses. She is feeling better at the time of my evaluation - still has abdominal pain but it has improved significantly with pain medication. Epigastric area tender to palpation. Review of Systems 2 Review of Systems: All systems reviewed & are unremarkable except as noted in HPI and below PMFSH Past Medical History Medical History Minimal change disease Nephrotic syndrome Proteinuria Surgical History Surgical History History of biopsy of kidney Social History Social History Social History: Surrogate medical decision maker: Lobito Devlin, spouse. Code status: Full code. Smoking status: Never smoker Alcohol intake: current Drinks per week: 1 Substance use: never Do You Feel Safe in your Home?: Yes Lack of Transportation: No Lack of Food: Never True Current Housing: I Have Housing Concerned About Future Housing: No Difficulty Paying Gas/Electric Bills: No Difficulty Paying for Meds: No Currently Unemployed: No Education: Associate Degree Difficulty w/ Childcare or Family Care: No Spiritual care concerns: No Meds Home Medications and Allergies Home Medications ?Medication ?Instructions ?Recorded ?Confirmed ?Type No Home Medications 08/06/22 06/08/24 History Allergies Allergy/AdvReac Type Severity Reaction Status Date / Time ampicillin Allergy Severe Rash Verified 06/08/24 12:29 Vital Signs Vital Signs - 24 hr 06/08/24 12:31 06/08/24 13:05 06/08/24 14:38 Temperature 36.4 C L Pulse Rate 50 L 50 L Respiratory Rate 14 16 Blood Pressure 141/84 H 140/79 Pulse Oximetry 100 100 100 Oxygen Delivery Room Air Room Air 06/08/24 14:40 06/08/24 15:27 06/08/24 17:59 Temperature 36.4 C L Pulse Rate 54 L 49 L 54 L Respiratory Rate 22 H 15 Blood Pressure 146/82 H 134/94 H Pulse Oximetry 100 99 Oxygen Delivery 06/08/24 18:34 06/08/24 20:00 06/08/24 20:30 Temperature 36.4 C L 36.4 C Pulse Rate 40 L 41 L 41 L Respiratory Rate 15 16 16 Blood Pressure 125/80 115/58 L Pulse Oximetry 100 98 98 Oxygen Delivery Room Air 06/09/24 00:00 06/09/24 04:00 06/09/24 05:05 Temperature 36.4 C Pulse Rate 43 L 43 L 45 L Respiratory Rate 16 Blood Pressure 125/79 Pulse Oximetry 98 Oxygen Delivery Exam 2 Const: General: comfortable, no acute distress, alert and awake O rientation/consciousness: patient oriented x3 HENMT: Head: normal to inspection Eyes: General: appearance normal, both eyes and all related structures P upils: Equal, round and reactive pupils present Neck: Neck: normal visual inspection, supple and no JVD Carotids: normal carotid upstroke Resp: Effort & Inspection: normal respiratory effort Auscultation: clear to auscultation bilaterally Cardio: Rate: bradycardic Rhythm: regular rhythm Heart sounds: S1 normal heart sound present, S2 normal heart sound present and no murmurs GI: GI Palp: Yes Soft to palpation and Yes Tenderness to palpation present (GI) Auscultation: normal bowel sounds Skin: General skin exam: normal color Neuro: General: patient oriented x3 Cranial nerves: Yes Equal, round and reactive pupils present Extrem: General: normal to inspection Psych: Appearance: grossly normal Mental Status: mental status grossly normal Results Labs and Meds 06/09/24 04:46 06/09/24 04:46 Lab results: Cardiac Enzymes 06/08/24 06/08/24 06/09/24 Range/Units 13:28 20:21 04:46 AST 1378 H 482 H (14-36) U/L Troponin I < 0.012 < 0.012 (0.000-0.034) ng/mL Coagulation 06/08/24 Range/Units 13:28 PT 13.6 (11.1-14.7) Seconds APTT 24.1 (22.3-36.8) Seconds CBC 06/08/24 06/09/24 Range/Units 13:28 04:46 WBC 6.4 4.6 (4.5-10.0) K/mm3 RBC 5.02 3.92 L (4.2-5.4) M/mm3 Hgb 15.4 H 12.2 D (12.0-15.0) g/dL Hct 44.6 35.8 L (37.0-47.0) % Plt Count 316 242 (150-375) k/mm3 Lymph # (Auto) 1.22 (0.9-3.2) K/mm3 Sullivan # (Auto) 0.3 (0.1-0.6) K/mm3 Eos # (Auto) 0.1 (0-0.3) K/mm3 Baso # (Auto) 0.0 (0.0-0.1) K/mm3 Comprehensive Metabolic Panel 06/08/24 06/09/24 Range/Units 13:28 04:46 Sodium 137 139 (137-145) mmol/L Potassium 3.7 3.6 (3.4-5.0) mmol/L Chloride 106 110 H (98-107) mmol/L Carbon Dioxide 28 25 (22-30) mmol/L BUN 14 10 (7-17) mg/dL Creatinine 0.90 0.90 (0.7-1.0) mg/dL Glucose 129 H 81 (65-110) mg/dL Calcium 9.9 8.1 L (8.4-10.2) mg/dL AST 1378 H 482 H (14-36) U/L ALT 812 H 558 H (6-35) U/L Alkaline Phosphatase 161 H 125 (38-126) U/L Total Protein 8.0 6.0 L (6.3-8.2) g/dL Albumin 4.3 3.3 L (3.5-5.1) g/dL Intake and Output 06/08/24 06/09/24 06/09/24 23:59 07:59 15:59 Intake Total 1000 Balance 1000 Intake: IV 1000 Sodium Chloride 0.9% IV 1,000 1000 ml @ 100 mls/hr IV CONT .Q10H [facility] Rx#:[id number] Oral 0 Other: # Unmeasured Voids 1 Patient Weight 06/09/24 23:59 Weight 66.2 kg
[2024-06-09] MEDS: MORPHINE SULFATE (*CRX) 2 MG/ML INJ IV PUSH (12:39)
--- NOTE | 2024-06-09 13:15 | ECG_ITS ---
Test Date: 2024-06-09 13:30:21 Measurements Intervals [place] Rate: 45 P: 30 [place]: 151 QRS: 11 QRSD: 80 T: 30 QT: 457 QTc: 398 Interpretive Statements SINUS BRADYCARDIA Compared to ECG 06/08/2024 12:37:17 No significant changes Electronically Signed On 06-09-2024 16:20:52 INSTRUCTIONAL TECHNOLOGY INSTRUCTOR by Darlin Serrano M.D.
--- NOTE | 2024-06-09 13:51 | P.CONGS_ITS ---
Assessment and Plan Assessment and plan (1) Cholelithiasis: Qualifiers: Cholelithiasis location: gallbladder and bile duct Cholecystitis presence: without cholecystitis Biliary obstruction: with biliary obstruction Qualified Code(s): K80.71 - Calculus of gallbladder and bile duct without cholecystitis with obstruction Code(s): K80.20 - Calculus of gallbladder without cholecystitis without obstruction Status: Acute Assessment and Plan: * Patient presenting with epigastric abdominal pain x 2 days. Imaging showed small gallstones, but no evidence of acute cholecystitis. On her initial CT scan, there was common bile duct dilatation and she had elevated LFTs with a total bilirubin of 2.4, which was concerning for choledocholithiasis. MRCP was negative for a common duct stone, but shows a 3-4 mm stone in the cystic duct. Her abdominal pain and nausea has improved since admission. She has been kept NPO today. We would recommend proceeding with a laparoscopic cholecystectomy under general anesthesia, which would be done by Dr. Paulino, to prevent recurrent episodes or future complications of her gallstones. Description of the procedure, risks, benefits, expected outcomes, and expected recovery were discussed with the patient in detail. We discussed the risks of bile leak and bile duct injury, liver/bowel injury, bleeding, and infection. Also discussed the possibility of having to convert to an open procedure if necessary. She agrees to proceed with surgery. Will decide on timing of surgery depending on the surgery schedule. She is also being workup up for asymptomatic sinus bradycardia, which is reportedly new. I spoke with Cardiology who feels she would be cleared for surgery if the echocardiogram does not show any significant pathologic abnormalities. Will await echo results, which was done this afternoon. Will keep her NPO with IV fluids in case she is added on for surgery later today. (2) Common bile duct dilatation: Code(s): K83.8 - Other specified diseases of biliary tract Status: Acute Assessment and Plan: * CT showed common bile duct dilatation. MRCP showed no common bile duct stone. Possibly passed a stone. LFTs are improving and total bilirubin is down to normal. See plan above. (3) Transaminitis: Code(s): R74.01 - Elevation of levels of liver transaminase levels Status: Acute Assessment and Plan: * Improving, see plan above. (4) Bradycardia: Code(s): R00.1 - Bradycardia, unspecified Status: Acute Assessment and Plan: * Cardiology following. Echo pending. Plan I have discussed the patient's case and plan of care with Dr. Paulino. Thank you for allowing us to see the patient in consultation and we will continue to follow along with you. History of Present Illness Consult details Consult date: 06/09/24 Reason for consult: other (Cholelithiasis) Requesting physician: Terri Lugo APRN Narrative: This is a 43 year old woman who we have been asked to see in surgical consultation for cholelithiasis. She presented to the ER yesterday with complaints of epigastric pain. She reports an acute onset of pain around 8 pm Saturday night about 3 hours after eating pizza for dinner. Her pain radiated into her back and persisted throughout the night. She felt like it improved the following day, but yesterday her pain became severe and constant. She had associated nausea and she vomited once yesterday. In the ED, she was found to have elevated LFTs with total bilirubin 2.4, AST 1378, ALT 812, alkaline phosphatase 161, and a normal WBC count. CT scan of the abdomen and pelvis showed cholelithiasis with mild dilatation of the common bile duct measuring 8 mm and hepatic biliary ductal dilatation. RUQ abdominal US showed gallbladder sludge with normal proximal CBD, recommending MRCP. GI was consulted and she was admitted to the Hospitalist. She had an MRCP today that showed cholelithiasis with 3-4 mm stone in the cystic duct which has a low confluence with the distal common bile duct, no dilation of the gallbladder to suggest a significant obstruction or acute cholecystitis. Mild pulmonary edema, trace bilateral pleural effusions and trace amount of perihepatic and perisplenic ascites. Our service has been consulted and she is now seen on the medical floor. She has also been bradycardic since admission. Her heart rate is in the 40s. She denies a history of bradycardia and has remained asymptomatic. Cardiology was consulted and she has an echocardiogram being done today. No previous abdominal surgeries. Review of Systems 2 Review of Systems: All systems reviewed & are unremarkable except as noted in HPI and below PMFSH Past Medical History Medical History Minimal change disease Nephrotic syndrome Proteinuria Surgical History Surgical History History of biopsy of kidney Social History Social History Social History: Surrogate medical decision maker: Lobito Devlin, spouse. Code status: Full code. Smoking status: Never smoker Alcohol intake: current Drinks per week: 1 Substance use: never Do You Feel Safe in your Home?: Yes Lack of Transportation: No Lack of Food: Never True Current Housing: I Have Housing Concerned About Future Housing: No Difficulty Paying Gas/Electric Bills: No Difficulty Paying for Meds: No Currently Unemployed: No Education: Associate Degree Difficulty w/ Childcare or Family Care: No Spiritual care concerns: No Meds Home Medications and Allergies Home Medications ?Medication ?Instructions ?Recorded ?Confirmed ?Type No Home Medications 08/06/22 06/08/24 History Allergies Allergy/AdvReac Type Severity Reaction Status Date / Time ampicillin Allergy Severe Rash Verified 06/08/24 12:29 Vital Signs Vital Signs - 24 hr 06/08/24 14:38 06/08/24 14:40 06/08/24 15:27 Temperature Pulse Rate 54 L 49 L Respiratory Rate 22 H Blood Pressure 146/82 H Pulse Oximetry 100 100 Oxygen Delivery Room Air 06/08/24 17:59 06/08/24 18:34 06/08/24 20:00 Temperature 97.5 F L 97.5 F L Pulse Rate 54 L 40 L 41 L Respiratory Rate 15 15 16 Blood Pressure 134/94 H 125/80 Pulse Oximetry 99 100 98 Oxygen Delivery Room Air 06/08/24 20:30 06/09/24 00:00 06/09/24 04:00 Temperature 97.6 F Pulse Rate 41 L 43 L 43 L Respiratory Rate 16 Blood Pressure 115/58 L Pulse Oximetry 98 Oxygen Delivery 06/09/24 05:05 06/09/24 08:00 06/09/24 11:02 Temperature 97.6 F Pulse Rate 45 L 44 L Respiratory Rate 16 Blood Pressure 125/79 Pulse Oximetry 98 Oxygen Delivery Room Air Exam 2 Const: General: comfortable and no acute distress Nutritional Appearance: a verage body habitus Orientation/consciousness: patient oriented x3 HENMT: Head: normocephalic and atraumatic Ears: hearing grossly normal bilaterally Mouth: Yes moist mucous membranes Eyes: General: appearance normal, both eyes and all related structures P upils: Equal, round and reactive pupils present Neck: Neck: normal visual inspection and full ROM Resp: Effort & Inspection: no respiratory distress Auscultation: clear to auscultation bilaterally Cardio: Rate: bradycardic Rhythm: regular rhythm Peripheral pulses: P eripheral pulses 2+ throughout GI: Inspection: non-distended, no scars and no visible herniation GI Palp: Yes Soft to palpation, Yes Tenderness to palpation present (GI) (RUQ and epigastric tenderness), No Guarding due to palpation present (GI), Yes No hepatosplenomegaly present and No Rebound tenderness present Percussion: Yes normal to percussion Auscultation: normal bowel sounds Rectal Exam: d eferred Skin: General skin exam: normal color Neuro: General: moves all extremities and no focal motor deficits Speech: n ormal speech Motor exam (neuro): 5/5 motor strength present throughout Extrem: General: normal to inspection and no edema Psych: Mental Status: mental status grossly normal Attitude: cooperative Insight: Good insight present (Psych) Judgement: Good judgement present (Psych) Results Labs 06/09/24 04:46 06/09/24 04:46 Labs: Abnormal lab results 06/08/24 06/09/24 Range/Units 13:28 04:46 RBC 3.92 L (4.2-5.4) M/mm3 Hct 35.8 L (37.0-47.0) % Chloride 110 H (98-107) mmol/L Anion Gap 3 L (4-12) mmol/L Glucose 129 H (65-110) mg/dL Calcium 8.1 L (8.4-10.2) mg/dL Total Bilirubin 2.4 H (0.2-1.3) mg/dL AST 1378 H 482 H (14-36) U/L ALT 812 H 558 H (6-35) U/L Alkaline Phosphatase 161 H (38-126) U/L Total Protein 6.0 L (6.3-8.2) g/dL Albumin 3.3 L (3.5-5.1) g/dL Diabetes panel 06/08/24 06/09/24 Range/Units 13:28 04:46 Sodium 137 139 (137-145) mmol/L Potassium 3.7 3.6 (3.4-5.0) mmol/L Chloride 106 110 H (98-107) mmol/L Carbon Dioxide 28 25 (22-30) mmol/L BUN 14 10 (7-17) mg/dL Creatinine 0.90 0.90 (0.7-1.0) mg/dL Glucose 129 H 81 (65-110) mg/dL Calcium 9.9 8.1 L (8.4-10.2) mg/dL AST 1378 H 482 H (14-36) U/L ALT 812 H 558 H (6-35) U/L Alkaline Phosphatase 161 H 125 (38-126) U/L Total Protein 8.0 6.0 L (6.3-8.2) g/dL Albumin 4.3 3.3 L (3.5-5.1) g/dL Calcium panel 06/08/24 06/09/24 Range/Units 13:28 04:46 Calcium 9.9 8.1 L (8.4-10.2) mg/dL Albumin 4.3 3.3 L (3.5-5.1) g/dL Pituitary panel 06/08/24 06/09/24 Range/Units 13:28 04:46 Sodium 137 139 (137-145) mmol/L Potassium 3.7 3.6 (3.4-5.0) mmol/L Chloride 106 110 H (98-107) mmol/L Carbon Dioxide 28 25 (22-30) mmol/L BUN 14 10 (7-17) mg/dL Creatinine 0.90 0.90 (0.7-1.0) mg/dL Glucose 129 H 81 (65-110) mg/dL Calcium 9.9 8.1 L (8.4-10.2) mg/dL Adrenal panel 06/08/24 06/09/24 Range/Units 13:28 04:46 Sodium 137 139 (137-145) mmol/L Potassium 3.7 3.6 (3.4-5.0) mmol/L Chloride 106 110 H (98-107) mmol/L Carbon Dioxide 28 25 (22-30) mmol/L BUN 14 10 (7-17) mg/dL Creatinine 0.90 0.90 (0.7-1.0) mg/dL Glucose 129 H 81 (65-110) mg/dL Calcium 9.9 8.1 L (8.4-10.2) mg/dL Total Bilirubin 2.4 H 1.0 (0.2-1.3) mg/dL AST 1378 H 482 H (14-36) U/L ALT 812 H 558 H (6-35) U/L Alkaline Phosphatase 161 H 125 (38-126) U/L Total Protein 8.0 6.0 L (6.3-8.2) g/dL Albumin 4.3 3.3 L (3.5-5.1) g/dL All other labs normal. Imaging Additional studies: ITS Impressions Abdomen/Pelvis CT 06/08/24 15:14 IMPRESSION: 1. Cholelithiasis with mild dilation the common bile duct 8 mm in minimal central and hepatic biliary ductal dilation. No distal obstructing stone identified although could consider MRCP for more sensitive evaluation as clinically indicated. 2. 3.7 cm left adnexal cyst. Chest X-Ray 06/08/24 16:50 IMPRESSION: 1. No acute cardiopulmonary disease. Abdomen Ultrasound 06/08/24 17:38 IMPRESSION: 1. Gallbladder sludge without evident shadowing cholelithiasis over this might be due to the relatively tiny size of the few calcific stone seen on prior CT. 2. Normal proximal common bile duct measurement of 4-5 mm however the more distal duct which was dilated to [address] is obscured. If there is continued clinical concern for biliary obstruction would consider MRCP for further evaluation. MRCP 06/09/24 10:50 IMPRESSION: 1. Cholelithiasis with 3-4 mm stone in the cystic duct which has a low confluence with the distal common bile duct. No dilation of the gallbladder to suggest a significant obstruction or acute cholecystitis. 2. Mild pulmonary edema, trace bilateral pleural effusions and trace amount of perihepatic and perisplenic ascites.
--- NOTE | 2024-06-09 16:45 | WPDHPUPDATE1 ---
History and Physical Update Update Date/Time: 06/09/24 16:45 History and Physical has been reviewed, including an updated exam of the patient. There are NO changes in the patient's condition. Risks, benefits, and alternatives have been discussed and questions answered. Patient agrees to proceed with procedure.
--- NOTE | 2024-06-09 16:48 | P.PNAN_ITS ---
Anes - Initial Pre Proc Eval Procedure: Operation Date: 06/09/24 17:30 Proposed Procedures p Laparoscopic Cholecystectomy with Intraoperative Cholangiogram - Ozzie Paulino DO Date/Time: 06/09/24 16:48 Surgeon: Christie Marte PA-C Pre Op Diagnosis: tranmanitis Patient Data Age: 43 Gender: F Height: 1.5 m Weight: 66.2 kg Last Vital Signs Temp 36.4 C L 06/09/24 14:00 Pulse 45 L 06/09/24 14:00 Resp 16 06/09/24 14:00 BP 118/68 06/09/24 14:00 Pulse Ox 98 06/09/24 14:00 O2 Del Method Room Air 06/09/24 11:02 Allergies Allergy/AdvReac Type Severity Reaction Status Date / Time ampicillin Allergy Severe Rash Verified 06/08/24 12:29 Home Medications ?Medication ?Instructions ?Recorded ?Confirmed ?Type No Home Medications 08/06/22 06/08/24 History Laboratory Tests 06/08/24 06/09/24 06/09/24 20:21 04:46 14:36 WBC 4.6 K/mm3 (4.5-10.0) RBC 3.92 L M/mm3 (4.2-5.4) Hgb 12.2 D g/dL (12.0-15.0) Hct 35.8 L % (37.0-47.0) MCV 91.3 fl (80-100) MCH 31.1 pg (26-34) MCHC 34.1 g/dl (32-36) RDW 12.1 % (11.5-14.5) Plt Count 242 k/mm3 (150-375) MPV 9.5 fl (7.4-10.4) Sodium 139 mmol/L (137-145) Potassium 3.6 mmol/L (3.4-5.0) Chloride 110 H mmol/L (98-107) Carbon Dioxide 25 mmol/L (22-30) Anion Gap 4 mmol/L (4-12) BUN 10 mg/dL (7-17) Creatinine 0.90 mg/dL (0.7-1.0) Estim Creat Clear Calc Not Reportable Estimated GFR > 60 (59 - ) Glucose 81 mg/dL (65-110) Calcium 8.1 L mg/dL (8.4-10.2) Magnesium 2.0 mg/dL 2.1 mg/dL (1.6-2.3) (1.6-2.3) Total Bilirubin 1.0 mg/dL (0.2-1.3) AST 482 H U/L (14-36) ALT 558 H U/L (6-35) Alkaline Phosphatase 125 U/L (38-126) Troponin I < 0.012 ng/mL (0.000-0.034) Total Protein 6.0 L g/dL (6.3-8.2) Albumin 3.3 L g/dL (3.5-5.1) Lipase 33 U/L (23-300) TSH (Reflex) 1.680 uIU/mL (0.465-4.68) Blood Type O Positive Antibody Screen Negative Patient hx anesthesia problems: none Family hx anesthesia problems: none Results Review: All pre-operative results and documents have been reviewed as part of the pre- operative evaluation. [facility] Past Medical History Medical History Minimal change disease Nephrotic syndrome Proteinuria Surgical History Surgical History History of biopsy of kidney Social History Social History Social History: Surrogate medical decision maker: Lobito Devlin, spouse. Code status: Full code. Smoking status: Never smoker Alcohol intake: current Drinks per week: 1 Substance use: never Do You Feel Safe in your Home?: Yes Lack of Transportation: No Lack of Food: Never True Current Housing: I Have Housing Concerned About Future Housing: No Difficulty Paying Gas/Electric Bills: No Difficulty Paying for Meds: No Currently Unemployed: No Education: Associate Degree Difficulty w/ Childcare or Family Care: No Spiritual care concerns: No Anes - Eval Final PreProcedure Day of Procedure 06/09/24 16:48 Patient weight: overweight Heart: regular rate and rhythm Lungs: clear to auscultation Airway: Mallampati scale class II Neurological: alert and oriented Last oral intake: >/= 8 hours ASA classification: II Emergent: no Anesthetic plan: proceed Anesthesia type and monitoring: general ETT and standard monitoring Results Review: All pre-operative results and documents have been reviewed as part of the pre- operative evaluation. Informed Consent: The patient's anesthetic plan and its attendant risks and benefits were discussed with the patient/family/POA. Questions were solicited and answers provided to the satisfaction of the patient/family/POA.
[2024-06-09] MEDS: LACTATED RINGERS 1,000 ML 30 ML IV CONT (16:55)
[2024-06-09] MEDS: BUPIVACAINE/EPINEPHRINE 0.5% 30 ML VIAL INFILTRATE (17:01)
[2024-06-09] MEDS: ceFAZolin 2 GM/D5W 50 ML 2 GM/50 ML BAG IVPB (17:01)
[2024-06-09] MEDS: HEMOSTATIC MATRIX (SURGIFLO with THROMBIN) KIT 1 KIT XX (17:45)
--- NOTE | 2024-06-09 18:07 | P.OP_ITS ---
Procedure Note - Detailed Date of Procedure 06/09/24 Pre-op Diagnosis Cholelithiasis, elevated liver enzymes Post-op Diagnosis Same Procedure Performed Laparoscopic cholecystectomy with intraoperative cholangiogram Surgeon Ozzie Paulino DO Anesthesia General and Local (0.5% bupivacaine) Indications This is a 43-year-old woman who presented to the emergency department yesterday with epigastric abdominal pain. She was found to have evidence of elevated liver enzymes and CT showed evidence of common bile duct dilation. MRCP was obtained this morning which showed evidence of a low confluence of the cystic duct and stone within the cystic duct. Her liver enzymes were slightly improving. Discussions were made with the patient about treatment options and decision was made to proceed with laparoscopic cholecystectomy with cholangiography. Findings Laparoscopic cholecystectomy with cholangiogram was performed. The patient's gallbladder was slightly dilated but not appear to be acutely inflamed. The cystic duct was slightly dilated. Intraoperative cholangiogram was obtained and there still appeared to be filling defect within the common bile duct. The gallbladder was removed and sent to the lab for pathology. Description of Procedure Procedure as well as risks, benefits, and alternatives were discussed with patient. Written consent was obtained and placed in chart prior to procedure. The patient was brought back to surgical suite. Patient was placed in supine position on operating table. Time-out was done to confirm patient and procedure. Patient was then intubated by the anesthesia department. Abdomen was prepped and draped in sterile fashion using chlorhexidine prep. 0.5% bupivacaine with epinephrine was infiltrated at each site of incision. A 5 millimeter incision was made near the umbilicus, and a 5 millimeter Optiview trocar was advanced through the abdominal layers under direct visualization. Once inside the abdominal cavity, carbon dioxide was insufflated to create a pneumoperitoneum. The camera was inserted and the abdomen was inspected. No immediate abnormalities were identified. The patient was placed in reverse Trendelenburg position and rotated slightly to the left. An 11 millimeter incision was made in the subxiphoid region, and an 11 millimeter trocar was inserted under direct visualization. Two 5 millimeter incisions were made in the right upper quadrant, and two 5 millimeter trocars were inserted under direct visualization. The gallbladder was identified and grasped at the fundus and retracted superiorly. It was then grasped at the infundibulum retracted laterally. Careful dissection around the neck of the gallbladder was performed using blunt dissection with a [place] grasper and hook electrocautery. The cystic duct was identified, and a window was created behind it. The cystic artery was also identified and a window was created behind it. The critical view of safety was identified, visualizing the cystic duct running directly into the neck of the gallbladder, and the cystic artery running directly into the wall of the gallbladder. A 5 millimeter clip space and storage clerk was then used to place 2 clips proximally and 1 clip distally on the cystic artery. It was then transected using endoscopic scissors. The Contreras clamp was then placed across the neck of the gallbladder and the Contreras cholangiocatheter was advanced into the distal neck of the gallbladder. The catheter flushed with saline with ease. The patient was then flattened out in bed and fluoroscopy was used to obtain a cholangiogram while injecting Omnipaque contrast. The images were sent to the radiologist for interpretation. The patient was then placed back in reverse Trendelenburg position. The Contreras cholangiocatheter was removed and a 5 mm Endoclip space and storage clerk was used to place 2 clips proximally 1 clip distally on the cystic duct. It was then transected using endoscopic scissors. Once safely away from the brenna hepatitis, the gallbladder was dissected free from the liver bed using hook electrocautery. Hemostasis was achieved along the way. The gallbladder was removed completely and then removed through the subxiphoid port. The liver bed was then inspected. Hemostasis appeared adequate, and our clips appeared secure. The area was gently irrigated with sterile saline. There was some minor bleeding near the area of the cystic artery. Surgiflo was sprayed within this area. Hemostasis then appeared adequate no other abnormalities were noted. The patient was flattened out in bed, and 1 final inspection was made around the abdominal cavity. The subxiphoid port was removed, and a Kris Ricci cone was used to approximate the fascia with an 0-Vicryl simple interrupted suture. The remaining ports were then removed under direct vi sualization, the camera was removed, and the pneumoperitoneum was released. The skin of the incisions was approximated using 4-0 Monocryl subcuticular sutures. Exofin glue was applied on top. The patient was then awakened from anesthesia, extubated, and transferred to recovery. Estimated Blood Loss 40 Pathology Yes (Gallbladder) Complications No immediate complications Condition Stable Disposition Floor [facility] [place] Billing Surgery - Charge Forward: Surgery Billing
[2024-06-09] MEDS: fentaNYL CITRATE INJ (*CRX) 100 MCG/2 ML VIAL 25 MCG IV PUSH ×4 (18:25→18:33)
[2024-06-09] MEDS: ONDANSETRON INJ 4 MG/2 ML VIAL IV PUSH (19:10)
[2024-06-09] MEDS: diphenhydrAMINE HCl INJ 50 MG/ML VIAL 25 MG IV PUSH (20:07)
[2024-06-10] VITALS (21 sets, daily range): BP systolic 112–154; BP diastolic 58–96; PULSE 41–87; RESP 16–66; TEMP 36.3–36.9; O2SAT 97–100
[2024-06-10] MEDS: MORPHINE SULFATE (*CRX) 4 MG/ML INJ IV PUSH ×2 (00:50→22:09)
[2024-06-10] MEDS: ONDANSETRON INJ 4 MG/2 ML VIAL IV PUSH ×3 (00:50→22:08)
[2024-06-10] MEDS: SODIUM CHLORIDE 0.9% IV 1,000 ML 100 ML IV CONT ×2 (05:26→18:58)
[2024-06-10 05:46] LABS: Hematocrit 36.6 % (37.0-47.0); Hemoglobin 12.8 g/dL (12.0-15.0); Mean Corpuscular Hemoglobin 31.4 pg (26-34); Mean Corpuscular Volume 89.7 fl (80-100); Mean Platelet Volume 9.4 fl (7.4-10.4); Platelet Count Result 255 k/mm3 (150-375); Red Blood Count 4.08 M/mm3 (4.2-5.4); Red Cell Distribution Width 11.9 % (11.5-14.5); White Blood Count 7.3 K/mm3 (4.5-10.0)
[2024-06-10 06:02] LABS: Alanine Aminotransferase 375 U/L (6-35); Albumin Level 3.5 g/dL (3.5-5.1); Alkaline Phosphatase 129 U/L (38-126); Anion Gap 6 mmol/L (4-12); Aspartate Amino Transferase 183 U/L (14-36); Blood Urea Nitrogen 7 mg/dL (7-17); Calcium 8.4 mg/dL (8.4-10.2); Carbon Dioxide 23 mmol/L (22-30); Chloride 107 mmol/L (98-107); Estimated Glomerular Filt Rate > 60; Glucose 86 mg/dL (65-110); Sodium 136 mmol/L (137-145)
[2024-06-10] MEDS: ACETAMINOPHEN 500 MG TABLET PO (10:14)
--- NOTE | 2024-06-10 10:49 | P.PNGS_ITS ---
Progress Note: A&P Assessment and Plan (1) Cholelithiasis: Qualifiers: Cholelithiasis location: gallbladder and bile duct Cholecystitis presence: without cholecystitis Biliary obstruction: with biliary obstruction Qualified Code(s): K80.71 - Calculus of gallbladder and bile duct without cholecystitis with obstruction Code(s): K80.20 - Calculus of gallbladder without cholecystitis without obstruction Status: Acute Assessment and Plan: * Doing well on POD#1. Awaiting ERCP later today. (2) Transaminitis: Code(s): R74.01 - Elevation of levels of liver transaminase levels Status: Acute (3) Common bile duct dilatation: Code(s): K83.8 - Other specified diseases of biliary tract Status: Acute (4) Bradycardia: Code(s): R00.1 - Bradycardia, unspecified Status: Acute Time Spent With Patient Time with patient: 25 - 35 minutes Subjective Subjective Date/Time Seen: 06/10/24 10:49 Interval history: Patient doing well. Still experiencing some RUQ pain. No nausea/vomiting. Awaiting ERCP today. Exam GI: Inspection: incision (intact with glue) GI Palp: Yes Soft to palpation, Yes Tenderness to palpation present (GI) (incisional) and No Guarding due to palpation present (GI) Auscultation: normal bowel sounds Objective Data Vital Signs Vital Signs: Vital Signs - 24 hr 06/09/24 11:02 06/09/24 12:00 06/09/24 14:00 Temperature 97.5 F L Pulse Rate 45 L 45 L Respiratory Rate 16 Blood Pressure 118/68 Pulse Oximetry 98 Oxygen Delivery Room Air Oxygen Flow Rate 06/09/24 16:00 06/09/24 16:52 06/09/24 18:03 Temperature 97.7 F 97.1 F L Pulse Rate 47 L 49 L 68 Respiratory Rate 14 11 L Blood Pressure 135/79 103/69 Pulse Oximetry 100 100 Oxygen Delivery Room Air Simple Face Mask Oxygen Flow Rate 8 06/09/24 18:15 06/09/24 18:30 06/09/24 18:45 Temperature 97.6 F Pulse Rate 69 59 L 52 L Respiratory Rate 15 20 18 Blood Pressure 127/89 140/77 121/70 Pulse Oximetry 100 100 99 Oxygen Delivery Simple Face Mask Room Air Room Air Oxygen Flow Rate 8 06/09/24 19:00 06/09/24 19:15 06/09/24 19:55 Temperature 97.4 F L 97.6 F 97.7 F Pulse Rate 50 L 51 L 45 L Respiratory Rate 18 16 14 Blood Pressure 120/73 123/83 117/72 Pulse Oximetry 100 97 96 Oxygen Delivery Oxygen Flow Rate 06/09/24 20:00 06/09/24 20:00 06/09/24 20:34 Temperature 97.9 F Pulse Rate 45 L 73 84 Respiratory Rate 14 18 Blood Pressure 141/76 H Pulse Oximetry 96 99 Oxygen Delivery Room Air Oxygen Flow Rate 06/09/24 22:45 06/10/24 00:00 06/10/24 00:34 Temperature 97.7 F Pulse Rate 54 L 77 Respiratory Rate 16 Blood Pressure 138/75 Pulse Oximetry 96 98 Oxygen Delivery Room Air Oxygen Flow Rate 06/10/24 04:00 06/10/24 05:00 06/10/24 08:34 Temperature 97.6 F 97.8 F Pulse Rate 41 L 79 47 L Respiratory Rate 18 18 Blood Pressure 112/69 121/67 Pulse Oximetry 97 99 Oxygen Delivery Oxygen Flow Rate 06/10/24 09:00 Temperature Pulse Rate Respiratory Rate Blood Pressure Pulse Oximetry Oxygen Delivery Room Air Oxygen Flow Rate Intake/Output Intake/Output: Intake & Output 06/07/24 06/08/24 06/09/24 06/10/24 23:59 23:59 23:59 23:59 Intake Total 1999 1150 Balance 1999 1150 Meds/Results Medications: Active Medications Generic Name Dose Route Start Last Admin Trade Name Freq PRN Reason Stop Dose Admin Acetaminophen 500 mg 06/09/24 18:49 06/10/24 10:14 Acetaminophen 500 Mg Tablet PO 500 mg Q6H PRN Administration Pain Rated 1-3 Hydrocodone Bitart/Acetaminophen 1 tab 06/09/24 18:49 Hydrocodone/Acetaminophen (*Crx) 5-325 Mg Tablet PO Q4H PRN Pain Rated 4-6 Hydrocodone Bitart/Acetaminophen 1 tab 06/09/24 18:49 Hydrocodone/Acetaminophen (*Crx) 7.5-325 Mg Tablet PO Q4H PRN Pain Rated 7-10 Diphenhydramine HCl 25 mg 06/09/24 18:49 06/09/24 20:07 Diphenhydramine Hcl Inj 50 Mg/Ml Vial IV PUSH 25 mg Q6H PRN Administration Itching Sodium Chloride 1,000 mls @ 100 mls/hr 06/08/24 16:25 06/10/24 05:26 Normal Saline Iv IV CONT 100 mls/hr .Q10H MALINA Administration Ibuprofen 800 mg in 200 mls @ 400 mls/hr 06/09/24 18:49 Caldolor 800 Mg/200 Ml IVPB Q6H PRN Breakthrough Pain Rated 1-3 or NPO Morphine Sulfate 2 mg 06/09/24 18:49 Morphine Sulfate (*Crx) 2 Mg/Ml Inj IV PUSH Q2H PRN Breakthrough Pain Rated 4-6 or NPO Morphine Sulfate 4 mg 06/09/24 18:49 06/10/24 00:50 Morphine Sulfate (*Crx) 4 Mg/Ml Inj IV PUSH 4 mg Q2H PRN Administration Breakthrough Pain Rated 7-10 or NPO Naloxone HCl 0.1 mg 06/09/24 18:49 Naloxone Hcl 0.4 Mg/Ml Vial IV PUSH Q2M PRN Opiate Reversal Ondansetron HCl 4 mg 06/09/24 18:49 06/10/24 00:50 Ondansetron Inj 4 Mg/2 Ml Vial IV PUSH 4 mg Q4H PRN Administration Nausea And Vomiting Perflutren Lipid Microsphere 0 ml 06/08/24 17:08 Perflutren Lipid Microspheres 1.5 Ml Vial Diluted To 10 Ml Total Volume IV PUSH 06/11/24 17:09 ONCE PRN adequate visualization Protocol Radiology Results: ITS Impressions Abdomen/Pelvis CT 06/08/24 15:14 IMPRESSION: 1. Cholelithiasis with mild dilation the common bile duct 8 mm in minimal central and hepatic biliary ductal dilation. No distal obstructing stone identified although could consider MRCP for more sensitive evaluation as clinically indicated. 2. 3.7 cm left adnexal cyst. Chest X-Ray 06/08/24 16:50 IMPRESSION: 1. No acute cardiopulmonary disease. Abdomen Ultrasound 06/08/24 17:38 IMPRESSION: 1. Gallbladder sludge without evident shadowing cholelithiasis over this might be due to the relatively tiny size of the few calcific stone seen on prior CT. 2. Normal proximal common bile duct measurement of 4-5 mm however the more distal duct which was dilated to [address] is obscured. If there is continued clinical concern for biliary obstruction would consider MRCP for further evaluation. MRCP 06/09/24 10:50 IMPRESSION: 1. Cholelithiasis with 3-4 mm stone in the cystic duct which has a low confluence with the distal common bile duct. No dilation of the gallbladder to suggest a significant obstruction or acute cholecystitis. 2. Mild pulmonary edema, trace bilateral pleural effusions and trace amount of perihepatic and perisplenic ascites. Cholangiogram,Operative 06/09/24 18:21 IMPRESSION: 1. 4 mm stone in the distal common bile duct. 2. Two 3 mm filling defects in the cystic duct which may be gas bubbles or stones. Labs Labs: Laboratory Results - last 24 hr 06/09/24 06/10/24 14:36 05:17 WBC 7.3 RBC 4.08 L Hgb 12.8 Hct 36.6 L MCV 89.7 MCH 31.4 MCHC 35.0 RDW 11.9 Plt Count 255 MPV 9.4 Sodium 136 L Potassium 4.0 Chloride 107 Carbon Dioxide 23 Anion Gap 6 BUN 7 Creatinine 0.80 Estim Creat Clear Calc Not Reportable Estimated GFR > 60 Glucose 86 Calcium 8.4 Total Bilirubin 1.0 AST 183 H ALT 375 H Alkaline Phosphatase 129 H Total Protein 6.0 L Albumin 3.5 Blood Type O Positive Antibody Screen Negative
[2024-06-10] MEDS: LACTATED RINGERS 1,000 ML 150 ML IV CONT ×2 (14:04→15:30)
[2024-06-10 14:05] LABS: BEDSIDEPREGUCG Negative (Negative)
--- NOTE | 2024-06-10 14:17 | P.PNAN_ITS ---
Anes - Initial Pre Proc Eval Procedure: Operation Date: 06/09/24 17:30 Proposed Procedures p Laparoscopic Cholecystectomy with Intraoperative Cholangiogram - Ozzie Paulino DO Operation Date: 06/10/24 15:45 Proposed Procedures p Endoscopic Retro Cholangiopancreatogram - Kyle Boothe MD Date/Time: 06/10/24 14:17 Surgeon: Christie Marte PA-C Pre Op Diagnosis: tranmanitis Patient Data Age: 43 Gender: F Height: 1.5 m Weight: 66.8 kg Last Vital Signs Temp 36.5 C 06/10/24 14:01 Pulse 58 L 06/10/24 14:01 Resp 20 06/10/24 14:01 BP 121/73 06/10/24 14:01 Pulse Ox 100 06/10/24 14:01 O2 Del Method Room Air 06/10/24 14:01 O2 Flow Rate 8 06/09/24 18:15 Allergies Allergy/AdvReac Type Severity Reaction Status Date / Time ampicillin Allergy Severe Rash Verified 06/10/24 13:57 Home Medications ?Medication ?Instructions ?Recorded ?Confirmed ?Type No Home Medications 08/06/22 06/08/24 History Laboratory Tests 06/09/24 06/10/24 06/10/24 14:36 05:17 14:01 WBC 7.3 K/mm3 (4.5-10.0) RBC 4.08 L M/mm3 (4.2-5.4) Hgb 12.8 g/dL (12.0-15.0) Hct 36.6 L % (37.0-47.0) MCV 89.7 fl (80-100) MCH 31.4 pg (26-34) MCHC 35.0 g/dl (32-36) RDW 11.9 % (11.5-14.5) Plt Count 255 k/mm3 (150-375) MPV 9.4 fl (7.4-10.4) Sodium 136 L mmol/L (137-145) Potassium 4.0 mmol/L (3.4-5.0) Chloride 107 mmol/L (98-107) Carbon Dioxide 23 mmol/L (22-30) Anion Gap 6 mmol/L (4-12) BUN 7 mg/dL (7-17) Creatinine 0.80 mg/dL (0.7-1.0) Estim Creat Clear Calc Not Reportable Estimated GFR > 60 (59 - ) Glucose 86 mg/dL (65-110) Calcium 8.4 mg/dL (8.4-10.2) Total Bilirubin 1.0 mg/dL (0.2-1.3) AST 183 H U/L (14-36) ALT 375 H U/L (6-35) Alkaline Phosphatase 129 H U/L (38-126) Total Protein 6.0 L g/dL (6.3-8.2) Albumin 3.5 g/dL (3.5-5.1) POC Urine HCG, Qual Negative (Negative) Blood Type O Positive Antibody Screen Negative Patient hx anesthesia problems: none Family hx anesthesia problems: none Results Review: All pre-operative results and documents have been reviewed as part of the pre- operative evaluation. [facility] Past Medical History Medical History Minimal change disease Nephrotic syndrome Proteinuria Surgical History Surgical History History of biopsy of kidney Social History Social History Social History: Surrogate medical decision maker: Lobito Devlin, spouse. Code status: Full code. Smoking status: Never smoker Alcohol intake: current Drinks per week: 1 Substance use: never Do You Feel Safe in your Home?: Yes Lack of Transportation: No Lack of Food: Never True Current Housing: I Have Housing Concerned About Future Housing: No Difficulty Paying Gas/Electric Bills: No Difficulty Paying for Meds: No Currently Unemployed: No Education: Associate Degree Difficulty w/ Childcare or Family Care: No Spiritual care concerns: No Anes - Eval Final PreProcedure Day of Procedure 06/10/24 14:17 Patient weight: normal Heart: regular rate and rhythm Lungs: clear to auscultation Airway: Mallampati scale class 1 Neurological: alert and oriented Last oral intake: >/= 8 hours ASA classification: III Emergent: no Anesthetic plan: proceed Anesthesia type and monitoring: general ETT and standard monitoring Results Review: All pre-operative results and documents have been reviewed as part of the pre- operative evaluation. Informed Consent: The patient's anesthetic plan and its attendant risks and benefits were discussed with the patient/family/POA. Questions were solicited and answers provided to the satisfaction of the patient/family/POA.
[2024-06-10] MEDS: INDOMETHACIN 50 MG SUPP.RECT RECTAL (14:33)
--- NOTE | 2024-06-10 14:42 | P.PNIM_ITS ---
Progress Note: A&P Assessment and Plan (1) Cholelithiasis: Qualifiers: Cholelithiasis location: gallbladder and bile duct Cholecystitis presence: without cholecystitis Biliary obstruction: with biliary obstruction Qualified Code(s): K80.71 - Calculus of gallbladder and bile duct without cholecystitis with obstruction Code(s): K80.20 - Calculus of gallbladder without cholecystitis without obstruction Status: Acute Assessment and Plan: - Elevated LFTs, downtrending - Abdomen/Pelvis CT 1. Cholelithiasis with mild dilation the common bile duct 8 mm in minimal central and hepatic biliary ductal dilation. No distal obstructing stone identified although could consider MRCP for more sensitive evaluation as clinically indicated. 2. 3.7 cm left adnexal cyst. - Abdomen Ultrasound 1. Gallbladder sludge without evident shadowing cholelithiasis over this might be due to the relatively tiny size of the few calcific stone seen on prior CT. 2. Normal proximal common bile duct measurement of 4-5 mm however the more distal duct which was dilated to [address] is obscured. - MRCP 1. Cholelithiasis with 3-4 mm stone in the cystic duct which has a low confluence with the distal common bile duct. No dilation of the gallbladder to suggest a significant obstruction or acute cholecystitis. 2. Mild pulmonary edema, trace bilateral pleural effusions and trace amount of perihepatic and perisplenic ascites. - IV pain management - Gentle IV fluid resuscitation - Diet:NPO - Monitor vital signs, I and O's, check stool output, neuro status and patient is a fall risk - Monitor serum electrolytes and CBC - Consult GI for further evaluation, appreciate assistance and recommendation See MRCP result above - Consult surgery for further evaluation, appreciate assistance and recommendation - laparoscopic cholecystectomy with DR. Paulino. (2) Transaminitis: Code(s): R74.01 - Elevation of levels of liver transaminase levels Status: Acute Assessment and Plan: LFTs on admission: Tot bili 2.4, AST 1378, ALT 812, Alk phos 161 Likely secondary to common bile duct and hepatic biliary ductal dilation as seen on imaging - LFTs on am labs: Tot bili 1.0, AST 482, ALT 558, Alk phos 125 - See cholelithiasis plan #1 - Monitor (3) Common bile duct dilatation: Code(s): K83.8 - Other specified diseases of biliary tract Status: Acute Assessment and Plan: see choledocholithiasis plan #1 (4) Bradycardia: Code(s): R00.1 - Bradycardia, unspecified Status: Acute Assessment and Plan: Sinus bradycardia with a heart rate in the 40-50s. No significant bradycardia, pauses, or bradyarrhythmias demonstrated on telemetry. Blood pressure is stable and she is asymptomatic. - Echo ordered - Apnea link ordered - Continue telemetry - Cardiology consulted At this point no other cardiac workup is being recommended stable- asymptomatic Time Spent With Patient Time with patient: Greater than 35 minutes Subjective Date/time seen: 06/10/24 14:42 Interval history: 43-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 Patient is seen and examined pt is pleasant lying comfortably in bed. She werner nues to have mild tenderness but otherwise pain has significantly improved. She has no other complaints denying chest pain, shortness of breath, palpitations, fatigue, lightheadness/dizziness, nausea/vomiting. Review of Systems Review of Systems: 12 systems were reviewed and are negativ e except for as per HPI. Exam Narrative: General: female in no acute respiratory distress who is nontoxic appearing, lyi ng semi recumbent in bed. HEENT: Normocephalic. Atraumatic. Extraocular movement intact. Sclera clear and anicteric. No facial asymmetry. Chest: Lungs are clear to auscultation bilaterally. No wheezes or crackles. CV: Heart was bradycardic with regular rhythm. S1-S2. No murmurs, gallops, or rubs. Abd: Abdomen was soft. Mild tenderness throughout worse in RUQ. Nondistended. Positive bowel sounds. No organomegaly or masses. Ext: No clubbing, cyanosis, or edema. 2+ DP pulses bilaterally. Neuro: Patient is alert and oriented x4. Cranial nerves 2-12 are intact. Speech is clear. Objective Data Vital Signs Vital Signs: Vital Signs - 24 hr 06/09/24 16:00 06/09/24 16:52 06/09/24 18:03 Temperature 97.7 F 97.1 F L Pulse Rate 47 L 49 L 68 Respiratory Rate 14 11 L Blood Pressure 135/79 103/69 Pulse Oximetry 100 100 Oxygen Delivery Room Air Simple Face Mask Oxygen Flow Rate 8 06/09/24 18:15 06/09/24 18:30 06/09/24 18:45 Temperature 97.6 F Pulse Rate 69 59 L 52 L Respiratory Rate 15 20 18 Blood Pressure 127/89 140/77 121/70 Pulse Oximetry 100 100 99 Oxygen Delivery Simple Face Mask Room Air Room Air Oxygen Flow Rate 8 06/09/24 19:00 06/09/24 19:15 06/09/24 19:55 Temperature 97.4 F L 97.6 F 97.7 F Pulse Rate 50 L 51 L 45 L Respiratory Rate 18 16 14 Blood Pressure 120/73 123/83 117/72 Pulse Oximetry 100 97 96 Oxygen Delivery Oxygen Flow Rate 06/09/24 20:00 06/09/24 20:00 06/09/24 20:34 Temperature 97.9 F Pulse Rate 45 L 73 84 Respiratory Rate 14 18 Blood Pressure 141/76 H Pulse Oximetry 96 99 Oxygen Delivery Room Air Oxygen Flow Rate 06/09/24 22:45 06/10/24 00:00 06/10/24 00:34 Temperature 97.7 F Pulse Rate 54 L 77 Respiratory Rate 16 Blood Pressure 138/75 Pulse Oximetry 96 98 Oxygen Delivery Room Air Oxygen Flow Rate 06/10/24 04:00 06/10/24 05:00 06/10/24 08:00 Temperature 97.6 F Pulse Rate 41 L 79 48 L Respiratory Rate 18 Blood Pressure 112/69 Pulse Oximetry 97 Oxygen Delivery Oxygen Flow Rate 06/10/24 08:34 06/10/24 09:00 06/10/24 12:00 Temperature 97.8 F Pulse Rate 47 L 52 L Respiratory Rate 18 Blood Pressure 121/67 Pulse Oximetry 99 Oxygen Delivery Room Air Oxygen Flow Rate 06/10/24 12:34 06/10/24 14:01 Temperature 98.2 F 97.7 F Pulse Rate 62 58 L Respiratory Rate 16 20 Blood Pressure 113/72 121/73 Pulse Oximetry 98 100 Oxygen Delivery Room Air Oxygen Flow Rate Intake/Output Intake/Output: Intake & Output 06/07/24 06/08/24 06/09/24 06/10/24 23:59 23:59 23:59 23:59 Intake Total 1999 1150 Balance 1999 1150 Meds/Results Medications: Active Medications Generic Name Dose Route Start Last Admin Trade Name Freq PRN Reason Stop Dose Admin Acetaminophen 500 mg 06/09/24 18:49 06/10/24 10:14 Acetaminophen 500 Mg Tablet PO 500 mg Q6H PRN Administration Pain Rated 1-3 Hydrocodone Bitart/Acetaminophen 1 tab 06/09/24 18:49 Hydrocodone/Acetaminophen (*Crx) 5-325 Mg Tablet PO Q4H PRN Pain Rated 4-6 Hydrocodone Bitart/Acetaminophen 1 tab 06/09/24 18:49 Hydrocodone/Acetaminophen (*Crx) 7.5-325 Mg Tablet PO Q4H PRN Pain Rated 7-10 Diphenhydramine HCl 25 mg 06/09/24 18:49 06/09/24 20:07 Diphenhydramine Hcl Inj 50 Mg/Ml Vial IV PUSH 25 mg Q6H PRN Administration Itching Sodium Chloride 1,000 mls @ 100 mls/hr 06/08/24 16:25 06/10/24 05:26 Normal Saline Iv IV CONT 100 mls/hr .Q10H MALINA Administration Ibuprofen 800 mg in 200 mls @ 400 mls/hr 06/09/24 18:49 Caldolor 800 Mg/200 Ml IVPB Q6H PRN Breakthrough Pain Rated 1-3 or NPO Lactated Ringer's 1,000 mls @ 150 mls/hr 06/10/24 13:40 Lr - Lactated Ringers Iv IV CONT .Q6H40M MALINA Morphine Sulfate 2 mg 06/09/24 18:49 Morphine Sulfate (*Crx) 2 Mg/Ml Inj IV PUSH Q2H PRN Breakthrough Pain Rated 4-6 or NPO Morphine Sulfate 4 mg 06/09/24 18:49 06/10/24 00:50 Morphine Sulfate (*Crx) 4 Mg/Ml Inj IV PUSH 4 mg Q2H PRN Administration Breakthrough Pain Rated 7-10 or NPO Naloxone HCl 0.1 mg 06/09/24 18:49 Naloxone Hcl 0.4 Mg/Ml Vial IV PUSH Q2M PRN Opiate Reversal Ondansetron HCl 4 mg 06/09/24 18:49 06/10/24 00:50 Ondansetron Inj 4 Mg/2 Ml Vial IV PUSH 4 mg Q4H PRN Administration Nausea And Vomiting Perflutren Lipid Microsphere 0 ml 06/08/24 17:08 Perflutren Lipid Microspheres 1.5 Ml Vial Diluted To 10 Ml Total Volume IV PUSH 06/11/24 17:09 ONCE PRN adequate visualization Protocol Radiology Results: ITS Impressions Abdomen/Pelvis CT 06/08/24 15:14 IMPRESSION: 1. Cholelithiasis with mild dilation the common bile duct 8 mm in minimal central and hepatic biliary ductal dilation. No distal obstructing stone identified although could consider MRCP for more sensitive evaluation as clinically indicated. 2. 3.7 cm left adnexal cyst. Chest X-Ray 06/08/24 16:50 IMPRESSION: 1. No acute cardiopulmonary disease. Abdomen Ultrasound 06/08/24 17:38 IMPRESSION: 1. Gallbladder sludge without evident shadowing cholelithiasis over this might be due to the relatively tiny size of the few calcific stone seen on prior CT. 2. Normal proximal common bile duct measurement of 4-5 mm however the more distal duct which was dilated to [address] is obscured. If there is continued clinical concern for biliary obstruction would consider MRCP for further evaluation. MRCP 06/09/24 10:50 IMPRESSION: 1. Cholelithiasis with 3-4 mm stone in the cystic duct which has a low confluence with the distal common bile duct. No dilation of the gallbladder to suggest a significant obstruction or acute cholecystitis. 2. Mild pulmonary edema, trace bilateral pleural effusions and trace amount of perihepatic and perisplenic ascites. Cholangiogram,Operative 06/09/24 18:21 IMPRESSION: 1. 4 mm stone in the distal common bile duct. 2. Two 3 mm filling defects in the cystic duct which may be gas bubbles or stones. Labs Labs: Laboratory Results - last 24 hr 06/09/24 06/10/24 06/10/24 14:36 05:17 14:01 WBC 7.3 RBC 4.08 L Hgb 12.8 Hct 36.6 L MCV 89.7 MCH 31.4 MCHC 35.0 RDW 11.9 Plt Count 255 MPV 9.4 Sodium 136 L Potassium 4.0 Chloride 107 Carbon Dioxide 23 Anion Gap 6 BUN 7 Creatinine 0.80 Estim Creat Clear Calc Not Reportable Estimated GFR > 60 Glucose 86 Calcium 8.4 Total Bilirubin 1.0 AST 183 H ALT 375 H Alkaline Phosphatase 129 H Total Protein 6.0 L Albumin 3.5 POC Urine HCG, Qual Negative Blood Type O Positive Antibody Screen Negative Quality VTE Prophylaxis VTE prophylaxis: mechanical ordered
[2024-06-10] MEDS: EPINEPHrine INJ 1 MG/10 ML SYRINGE 0.4 MG XX (15:24)
[2024-06-10] MEDS: MORPHINE SULFATE (*CRX) 2 MG/ML INJ IV PUSH ×2 (16:03→16:10)
--- NOTE | 2024-06-10 17:08 | SUR.PHASEII ---
Pt arrived to post op after waking up Pt complained of shoulder pain that quickly changed to abdomen pain Dr Inman was notified and he observed the pt stating it was ok to have morphine as ordered was given and ordered a KUB, DR Inman was notified when KUB was done and ready to be read, Storm Smith stated OK to take Pt back to her room and continue care there.
[2024-06-10] MEDS: IBUPROFEN IV 800 MG/200 ML 800 MG/200 ML BAG 400 MG IVPB (17:32)
--- NOTE | 2024-06-10 18:38 | WPDANESPN ---
Anes - Prog Note Post-Op Date/Time: 06/10/24 18:38 Cardiovascular status: normal Respiratory status: normal Airway patency: baseline Mental status: baseline Post-Op hydration status: normal Vital Signs: Last Vital Signs Temp 98.2 F 06/10/24 16:35 Pulse 64 06/10/24 16:50 Resp 66 H 06/10/24 16:50 BP 142/66 H 06/10/24 16:50 Pulse Ox 100 06/10/24 16:50 O2 Del Method Room Air 06/10/24 16:50 O2 Flow Rate 4 06/10/24 15:35 Pain Score (VAS): 0/10 I/O: Intake & Output 06/10/24 06/10/24 06/10/24 07:59 15:59 23:59 Intake Total 1150 1000 Balance 1150 1000 Laboratory Tests 06/10/24 05:17 06/10/24 05:17 06/10/24 06/10/24 05:17 14:01 WBC 7.3 RBC 4.08 L Hgb 12.8 Hct 36.6 L MCV 89.7 MCH 31.4 MCHC 35.0 RDW 11.9 Plt Count 255 MPV 9.4 Sodium 136 L Potassium 4.0 Chloride 107 Carbon Dioxide 23 Anion Gap 6 BUN 7 Creatinine 0.80 Estim Creat Clear Calc Not Reportable Estimated GFR > 60 Glucose 86 Calcium 8.4 Total Bilirubin 1.0 AST 183 H ALT 375 H Alkaline Phosphatase 129 H Total Protein 6.0 L Albumin 3.5 POC Urine HCG, Qual Negative Post-procedural complaints: none Patient Feedback: Patient satisfied with anesthetic care.
[2024-06-11] VITALS (11 sets, daily range): BP systolic 112–138; BP diastolic 64–71; PULSE 42–94; RESP 14–18; TEMP 36.6–36.8; O2SAT 97–99
[2024-06-11] MEDS: ONDANSETRON INJ 4 MG/2 ML VIAL IV PUSH ×3 (02:40→16:31)
[2024-06-11] MEDS: MORPHINE SULFATE (*CRX) 4 MG/ML INJ IV PUSH ×5 (02:40→21:13)
[2024-06-11] MEDS: SODIUM CHLORIDE 0.9% IV 1,000 ML 100 ML IV CONT ×2 (05:46→16:23)
[2024-06-11 06:03] LABS: Hematocrit 39.2 % (37.0-47.0); Hemoglobin 13.5 g/dL (12.0-15.0); Mean Corpuscular HGB Conc 34.4 g/dl (32-36); Mean Corpuscular Hemoglobin 31.3 pg (26-34); Mean Platelet Volume 9.8 fl (7.4-10.4); Platelet Count Result 305 k/mm3 (150-375); Red Blood Count 4.31 M/mm3 (4.2-5.4); Red Cell Distribution Width 12.1 % (11.5-14.5); White Blood Count 16.5 K/mm3 (4.5-10.0)
[2024-06-11 06:19] LABS: Alanine Aminotransferase 253 U/L (6-35); Albumin Level 3.5 g/dL (3.5-5.1); Alkaline Phosphatase 116 U/L (38-126); Anion Gap 6 mmol/L (4-12); Aspartate Amino Transferase 71 U/L (14-36); Bilirubin,Total 1.2 mg/dL (0.2-1.3); Blood Urea Nitrogen 8 mg/dL (7-17); Calcium 8.3 mg/dL (8.4-10.2); Carbon Dioxide 24 mmol/L (22-30); Chloride 105 mmol/L (98-107); Estimated Glomerular Filt Rate > 60; Glucose 102 mg/dL (65-110); Potassium 4.1 mmol/L (3.4-5.0); Sodium 135 mmol/L (137-145)
[2024-06-11 06:25] LABS: Lipase 3852 U/L (23-300)
--- NOTE | 2024-06-11 07:31 | P.PNIM_ITS ---
Progress Note: A&P Assessment and Plan (1) Cholelithiasis: Qualifiers: Biliary obstruction: with biliary obstruction Cholecystitis presence: without cholecystitis Cholelithiasis location: gallbladder and bile duct Qualified Code(s): K80.71 - Calculus of gallbladder and bile duct without cholecystitis with obstruction Code(s): K80.20 - Calculus of gallbladder without cholecystitis without obstruction Status: Acute Assessment and Plan: - Elevated LFTs, downtrending - Abdomen/Pelvis CT 1. Cholelithiasis with mild dilation the common bile duct 8 mm in minimal central and hepatic biliary ductal dilation. No distal obstructing stone identified although could consider MRCP for more sensitive evaluation as clinically indicated. 2. 3.7 cm left adnexal cyst. - Abdomen Ultrasound 1. Gallbladder sludge without evident shadowing cholelithiasis over this might be due to the relatively tiny size of the few calcific stone seen on prior CT. 2. Normal proximal common bile duct measurement of 4-5 mm however the more distal duct which was dilated to [address] is obscured. - MRCP 1. Cholelithiasis with 3-4 mm stone in the cystic duct which has a low confluence with the distal common bile duct. No dilation of the gallbladder to suggest a significant obstruction or acute cholecystitis. 2. Mild pulmonary edema, trace bilateral pleural effusions and trace amount of perihepatic and perisplenic ascites. - IV pain management - Monitor vital signs, I and O's, check stool output, neuro status and patient is a fall risk - Monitor serum electrolytes and CBC - Consult GI for further evaluation, appreciate assistance and recommendation See MRCP result above - Consult surgery for further evaluation, appreciate assistance and recommendation - laparoscopic cholecystectomy with DR. Paulino-06/09 - continue supportive care 06/11- ercp yesterday with sphincterotomy, unfortunately after procedure with severe abdominal pain pancreatitis- per st report (2) Transaminitis: Code(s): R74.01 - Elevation of levels of liver transaminase levels Status: Acute Assessment and Plan: LFTs on admission: Tot bili 2.4, AST 1378, ALT 812, Alk phos 161 Likely secondary to common bile duct and hepatic biliary ductal dilation as seen on imaging - LFTs on am labs: Tot bili 1.0, AST 482, ALT 558, Alk phos 125 - See cholelithiasis plan #1 - Monitor (3) Common bile duct dilatation: Code(s): K83.8 - Other specified diseases of biliary tract Status: Acute Assessment and Plan: see choledocholithiasis plan #1 (4) Bradycardia: Code(s): R00.1 - Bradycardia, unspecified Status: Acute Assessment and Plan: Sinus bradycardia with a heart rate in the 40-50s. No significant bradycardia, pauses, or bradyarrhythmias demonstrated on telemetry. Blood pressure is stable and she is asymptomatic. - Echo ordered - Apnea link ordered - Continue telemetry - Cardiology consulted At this point no other cardiac workup is being recommended VS reviewed- 45-78 range-continue to be asymptomatic received propofol during procedure- so could be some bradycardic episodes from that- monitor (5) Post-ERCP acute pancreatitis: Code(s): K91.89 - Other postprocedural complications and disorders of digestive system; K85.90 - Acute pancreatitis without necrosis or infection, unspecified Status: Acute Assessment and Plan: 06/11- ercp yesterday with sphincterotomy, unfortunately after procedure with severe abdominal pain pancreatitis- per st report npo, iv fluids, pain control Time Spent With Patient Time with patient: Greater than 35 minutes Subjective Date/time seen: 06/11/24 07:31 Interval history: 43-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 Pt is seen and examined. Ercp with sphincterotomy, now has pancreatitis. NPO, IV fluids, pain control Review of Systems Review of Systems: 12 systems were reviewed and are negativ e except for as per HPI. Gastrointestinal: Gastrointestinal: Reports abdominal pain Exam Narrative: General: female in no acute respiratory distress who is nontoxic appearing. HEENT: Normocephalic. Atraumatic. Extraocular movement intact. Sclera clear and anicteric. No facial asymmetry. Chest: Lungs are clear to auscultation bilaterally. No wheezes or crackles. CV: Heart was bradycardic with regular rhythm. S1-S2. No murmurs, gallops, or rubs. Abd: Abdomen was soft. Mild tenderness throughout worse in RUQ. Nondistended. Positive bowel sounds. No organomegaly or masses. Ext: No clubbing, cyanosis, or edema. 2+ DP pulses bilaterally. Neuro: Patient is alert and oriented x4. Cranial nerves 2-12 are intact. Speech is clear. Objective Data Vital Signs Vital Signs: Vital Signs - 24 hr 06/10/24 08:00 06/10/24 08:34 06/10/24 09:00 Temperature 97.8 F Pulse Rate 48 L 47 L Respiratory Rate 18 Blood Pressure 121/67 Pulse Oximetry 99 Oxygen Delivery Room Air Oxygen Flow Rate 06/10/24 12:00 06/10/24 12:34 06/10/24 14:01 Temperature 98.2 F 97.7 F Pulse Rate 52 L 62 58 L Respiratory Rate 16 20 Blood Pressure 113/72 121/73 Pulse Oximetry 98 100 Oxygen Delivery Room Air Oxygen Flow Rate 06/10/24 15:25 06/10/24 15:35 06/10/24 15:45 Temperature 98.0 F Pulse Rate 67 68 62 Respiratory Rate 21 H 23 H 24 H Blood Pressure 139/80 154/89 H 142/90 H Pulse Oximetry 100 100 98 Oxygen Delivery Simple Face Mask Simple Face Mask Room Air Oxygen Flow Rate 4 4 06/10/24 15:55 06/10/24 16:05 06/10/24 16:15 Temperature 98.4 F Pulse Rate 63 64 55 L Respiratory Rate 25 H 66 H 28 H Blood Pressure 128/76 142/66 H 143/74 H Pulse Oximetry 100 100 100 Oxygen Delivery Room Air Room Air Room Air Oxygen Flow Rate 06/10/24 16:25 06/10/24 16:34 06/10/24 16:35 Temperature 97.4 F L 98.2 F Pulse Rate 53 L 58 L 52 L Respiratory Rate 22 H 22 H 24 H Blood Pressure 136/77 136/96 H 135/58 L Pulse Oximetry 99 100 100 Oxygen Delivery Room Air Room Air Oxygen Flow Rate 06/10/24 20:00 06/10/24 20:32 06/10/24 22:10 Temperature 98.5 F 98.0 F Pulse Rate 46 L 87 60 Respiratory Rate 22 H 18 Blood Pressure 136/76 141/73 H Pulse Oximetry 98 100 Oxygen Delivery Oxygen Flow Rate 06/11/24 00:00 06/11/24 00:12 06/11/24 04:00 Temperature 98.2 F Pulse Rate 42 L 62 51 L Respiratory Rate 18 Blood Pressure 138/70 Pulse Oximetry 98 Oxygen Delivery Oxygen Flow Rate 06/11/24 06:15 Temperature 97.8 F Pulse Rate 78 Respiratory Rate 18 Blood Pressure 122/71 Pulse Oximetry 97 Oxygen Delivery Oxygen Flow Rate Intake/Output Intake/Output: Intake & Output 06/08/24 06/09/24 06/10/24 06/11/24 23:59 23:59 23:59 23:59 Intake Total 1999 3350 1200 Balance 1999 3350 1200 Meds/Results Medications: Active Medications Generic Name Dose Route Start Last Admin Trade Name Freq PRN Reason Stop Dose Admin Acetaminophen 500 mg 06/09/24 18:49 06/10/24 10:14 Acetaminophen 500 Mg Tablet PO 500 mg Q6H PRN Administration Pain Rated 1-3 Hydrocodone Bitart/Acetaminophen 1 tab 06/09/24 18:49 Hydrocodone/Acetaminophen (*Crx) 5-325 Mg Tablet PO Q4H PRN Pain Rated 4-6 Hydrocodone Bitart/Acetaminophen 1 tab 06/09/24 18:49 Hydrocodone/Acetaminophen (*Crx) 7.5-325 Mg Tablet PO Q4H PRN Pain Rated 7-10 Diphenhydramine HCl 25 mg 06/09/24 18:49 06/09/24 20:07 Diphenhydramine Hcl Inj 50 Mg/Ml Vial IV PUSH 25 mg Q6H PRN Administration Itching Sodium Chloride 1,000 mls @ 100 mls/hr 06/08/24 16:25 06/11/24 05:47 Normal Saline Iv IV CONT Not Given .Q10H MALINA Ibuprofen 800 mg in 200 mls @ 400 mls/hr 06/09/24 18:49 06/10/24 18:55 Caldolor 800 Mg/200 Ml IVPB Infused Q6H PRN Infusion Breakthrough Pain Rated 1-3 or NPO Morphine Sulfate 2 mg 06/09/24 18:49 06/10/24 16:10 Morphine Sulfate (*Crx) 2 Mg/Ml Inj IV PUSH 2 mg Q2H PRN Administration Breakthrough Pain Rated 4-6 or NPO Morphine Sulfate 4 mg 06/09/24 18:49 06/11/24 05:42 Morphine Sulfate (*Crx) 4 Mg/Ml Inj IV PUSH 4 mg Q2H PRN Administration Breakthrough Pain Rated 7-10 or NPO Naloxone HCl 0.1 mg 06/09/24 18:49 Naloxone Hcl 0.4 Mg/Ml Vial IV PUSH Q2M PRN Opiate Reversal Ondansetron HCl 4 mg 06/09/24 18:49 06/11/24 02:40 Ondansetron Inj 4 Mg/2 Ml Vial IV PUSH 4 mg Q4H PRN Administration Nausea And Vomiting Perflutren Lipid Microsphere 0 ml 06/08/24 17:08 Perflutren Lipid Microspheres 1.5 Ml Vial Diluted To 10 Ml Total Volume IV PUSH 06/11/24 17:09 ONCE PRN adequate visualization Protocol Radiology Results: ITS Impressions Chest X-Ray 06/08/24 16:50 IMPRESSION: 1. No acute cardiopulmonary disease. Abdomen Ultrasound 06/08/24 17:38 IMPRESSION: 1. Gallbladder sludge without evident shadowing cholelithiasis over this might be due to the relatively tiny size of the few calcific stone seen on prior CT. 2. Normal proximal common bile duct measurement of 4-5 mm however the more distal duct which was dilated to [address] is obscured. If there is continued clinical concern for biliary obstruction would consider MRCP for further evaluation. MRCP 06/09/24 10:50 IMPRESSION: 1. Cholelithiasis with 3-4 mm stone in the cystic duct which has a low confluence with the distal common bile duct. No dilation of the gallbladder to suggest a significant obstruction or acute cholecystitis. 2. Mild pulmonary edema, trace bilateral pleural effusions and trace amount of perihepatic and perisplenic ascites. Cholangiogram,Operative 06/09/24 18:21 IMPRESSION: 1. 4 mm stone in the distal common bile duct. 2. Two 3 mm filling defects in the cystic duct which may be gas bubbles or stones. Endo Retro Cholangiopancreatogram 06/10/24 16:18 IMPRESSION: 1. Enlarged common duct. Please refer to the ERCP procedure note for additional details. Abdomen X-Ray 06/10/24 16:24 IMPRESSION: NO definite ACUTE ABDOMINAL FINDINGS. Contrast seen in the right side of the colon and in the gallbladder. Abdomen/Pelvis CT 06/10/24 21:41 IMPRESSION: 1. Acute interstitial pancreatitis. 2. Small pleural effusions. Labs Labs: Laboratory Results - last 24 hr 06/10/24 06/11/24 14:01 05:38 WBC 16.5 H RBC 4.31 Hgb 13.5 Hct 39.2 MCV 91.0 MCH 31.3 MCHC 34.4 RDW 12.1 Plt Count 305 MPV 9.8 Sodium 135 L Potassium 4.1 Chloride 105 Carbon Dioxide 24 Anion Gap 6 BUN 8 Creatinine 0.80 Estim Creat Clear Calc Not Reportable Estimated GFR > 60 Glucose 102 Calcium 8.3 L Total Bilirubin 1.2 AST 71 H ALT 253 H Alkaline Phosphatase 116 Total Protein 7.0 Albumin 3.5 Lipase 3852 H POC Urine HCG, Qual Negative Quality VTE Prophylaxis VTE prophylaxis: mechanical ordered
--- NOTE | 2024-06-11 11:55 | P.PNGS_ITS ---
Progress Note: A&P Assessment and Plan (1) Acute epigastric pain: Code(s): R10.13 - Epigastric pain Status: Acute Assessment and Plan: * Patient with findings of post ERCP pancreatitis. Continue bowel rest and pain meds. Will continue to follow. (2) Cholelithiasis: Qualifiers: Cholelithiasis location: gallbladder and bile duct Cholecystitis presence: without cholecystitis Biliary obstruction: with biliary obstruction Qualified Code(s): K80.71 - Calculus of gallbladder and bile duct without cholecystitis with obstruction Code(s): K80.20 - Calculus of gallbladder without cholecystitis without obstruction Status: Acute (3) Elevated LFTs: Code(s): R79.89 - Other specified abnormal findings of blood chemistry Status: Acute Subjective Subjective Date/Time Seen: 06/11/24 11:55 Interval history: Patient underwent ERCP yesterday. Was having increased abdominal pain post procedure and found to have pancreatitis on CT. Feeling about the same today. Pain meds helping. Exam GI: Inspection: non-distended GI Palp: Yes Tenderness to palpation present (GI) (epigastric and RUQ) Objective Data Vital Signs Vital Signs: Vital Signs - 24 hr 06/10/24 12:00 06/10/24 12:34 06/10/24 14:01 Temperature 98.2 F 97.7 F Pulse Rate 52 L 62 58 L Respiratory Rate 16 20 Blood Pressure 113/72 121/73 Pulse Oximetry 98 100 Oxygen Delivery Room Air Oxygen Flow Rate 06/10/24 15:25 06/10/24 15:35 06/10/24 15:45 Temperature 98.0 F Pulse Rate 67 68 62 Respiratory Rate 21 H 23 H 24 H Blood Pressure 139/80 154/89 H 142/90 H Pulse Oximetry 100 100 98 Oxygen Delivery Simple Face Mask Simple Face Mask Room Air Oxygen Flow Rate 4 4 06/10/24 15:55 06/10/24 16:05 06/10/24 16:15 Temperature 98.4 F Pulse Rate 63 64 55 L Respiratory Rate 25 H 66 H 28 H Blood Pressure 128/76 142/66 H 143/74 H Pulse Oximetry 100 100 100 Oxygen Delivery Room Air Room Air Room Air Oxygen Flow Rate 06/10/24 16:25 06/10/24 16:34 06/10/24 16:35 Temperature 97.4 F L 98.2 F Pulse Rate 53 L 58 L 52 L Respiratory Rate 22 H 22 H 24 H Blood Pressure 136/77 136/96 H 135/58 L Pulse Oximetry 99 100 100 Oxygen Delivery Room Air Room Air Oxygen Flow Rate 06/10/24 20:00 06/10/24 20:32 06/10/24 22:10 Temperature 98.5 F 98.0 F Pulse Rate 46 L 87 60 Respiratory Rate 22 H 18 Blood Pressure 136/76 141/73 H Pulse Oximetry 98 100 Oxygen Delivery Oxygen Flow Rate 06/11/24 00:00 06/11/24 00:12 06/11/24 04:00 Temperature 98.2 F Pulse Rate 42 L 62 51 L Respiratory Rate 18 Blood Pressure 138/70 Pulse Oximetry 98 Oxygen Delivery Oxygen Flow Rate 06/11/24 06:15 06/11/24 07:54 06/11/24 09:02 Temperature 97.8 F Pulse Rate 78 Respiratory Rate 18 Blood Pressure 122/71 Pulse Oximetry 97 97 Oxygen Delivery Room Air Room Air Oxygen Flow Rate 06/11/24 09:02 Temperature Pulse Rate 78 Respiratory Rate Blood Pressure Pulse Oximetry Oxygen Delivery Oxygen Flow Rate Intake/Output Intake/Output: Intake & Output 06/08/24 06/09/24 06/10/24 06/11/24 23:59 23:59 23:59 23:59 Intake Total 1999 3350 1200 Balance 1999 3350 1200 Meds/Results Medications: Active Medications Generic Name Dose Route Start Last Admin Trade Name Freq PRN Reason Stop Dose Admin Acetaminophen 500 mg 06/09/24 18:49 06/10/24 10:14 Acetaminophen 500 Mg Tablet PO 500 mg Q6H PRN Administration Pain Rated 1-3 Hydrocodone Bitart/Acetaminophen 1 tab 06/09/24 18:49 Hydrocodone/Acetaminophen (*Crx) 5-325 Mg Tablet PO Q4H PRN Pain Rated 4-6 Hydrocodone Bitart/Acetaminophen 1 tab 06/09/24 18:49 Hydrocodone/Acetaminophen (*Crx) 7.5-325 Mg Tablet PO Q4H PRN Pain Rated 7-10 Diphenhydramine HCl 25 mg 06/09/24 18:49 06/09/24 20:07 Diphenhydramine Hcl Inj 50 Mg/Ml Vial IV PUSH 25 mg Q6H PRN Administration Itching Sodium Chloride 1,000 mls @ 100 mls/hr 06/08/24 16:25 06/11/24 05:47 Normal Saline Iv IV CONT Not Given .Q10H MALINA Ibuprofen 800 mg in 200 mls @ 400 mls/hr 06/09/24 18:49 06/10/24 18:55 Caldolor 800 Mg/200 Ml IVPB Infused Q6H PRN Infusion Breakthrough Pain Rated 1-3 or NPO Morphine Sulfate 2 mg 06/09/24 18:49 06/10/24 16:10 Morphine Sulfate (*Crx) 2 Mg/Ml Inj IV PUSH 2 mg Q2H PRN Administration Breakthrough Pain Rated 4-6 or NPO Morphine Sulfate 4 mg 06/09/24 18:49 06/11/24 09:02 Morphine Sulfate (*Crx) 4 Mg/Ml Inj IV PUSH 4 mg Q2H PRN Administration Breakthrough Pain Rated 7-10 or NPO Naloxone HCl 0.1 mg 06/09/24 18:49 Naloxone Hcl 0.4 Mg/Ml Vial IV PUSH Q2M PRN Opiate Reversal Ondansetron HCl 4 mg 06/09/24 18:49 06/11/24 09:05 Ondansetron Inj 4 Mg/2 Ml Vial IV PUSH 4 mg Q4H PRN Administration Nausea And Vomiting Perflutren Lipid Microsphere 0 ml 06/08/24 17:08 Perflutren Lipid Microspheres 1.5 Ml Vial Diluted To 10 Ml Total Volume IV PUSH 06/11/24 17:09 ONCE PRN adequate visualization Protocol Radiology Results: ITS Impressions Chest X-Ray 06/08/24 16:50 IMPRESSION: 1. No acute cardiopulmonary disease. Abdomen Ultrasound 06/08/24 17:38 IMPRESSION: 1. Gallbladder sludge without evident shadowing cholelithiasis over this might be due to the relatively tiny size of the few calcific stone seen on prior CT. 2. Normal proximal common bile duct measurement of 4-5 mm however the more distal duct which was dilated to [address] is obscured. If there is continued clinical concern for biliary obstruction would consider MRCP for further evaluation. MRCP 06/09/24 10:50 IMPRESSION: 1. Cholelithiasis with 3-4 mm stone in the cystic duct which has a low confluence with the distal common bile duct. No dilation of the gallbladder to suggest a significant obstruction or acute cholecystitis. 2. Mild pulmonary edema, trace bilateral pleural effusions and trace amount of perihepatic and perisplenic ascites. Cholangiogram,Operative 06/09/24 18:21 IMPRESSION: 1. 4 mm stone in the distal common bile duct. 2. Two 3 mm filling defects in the cystic duct which may be gas bubbles or stones. Endo Retro Cholangiopancreatogram 06/10/24 16:18 IMPRESSION: 1. Enlarged common duct. Please refer to the ERCP procedure note for additional details. Abdomen X-Ray 06/10/24 16:24 IMPRESSION: NO definite ACUTE ABDOMINAL FINDINGS. Contrast seen in the right side of the colon and in the gallbladder. Abdomen/Pelvis CT 06/10/24 21:41 IMPRESSION: 1. Acute interstitial pancreatitis. 2. Small pleural effusions. Labs Labs: Laboratory Results - last 24 hr 06/10/24 06/11/24 14:01 05:38 WBC 16.5 H RBC 4.31 Hgb 13.5 Hct 39.2 MCV 91.0 MCH 31.3 MCHC 34.4 RDW 12.1 Plt Count 305 MPV 9.8 Sodium 135 L Potassium 4.1 Chloride 105 Carbon Dioxide 24 Anion Gap 6 BUN 8 Creatinine 0.80 Estim Creat Clear Calc Not Reportable Estimated GFR > 60 Glucose 102 Calcium 8.3 L Total Bilirubin 1.2 AST 71 H ALT 253 H Alkaline Phosphatase 116 Total Protein 7.0 Albumin 3.5 Lipase 3852 H POC Urine HCG, Qual Negative
[2024-06-11] MEDS: IBUPROFEN IV 800 MG/200 ML 800 MG/200 ML BAG 400 MG IVPB (12:34)
--- NOTE | 2024-06-11 13:05 | WPDGIPROGNO ---
Progress Note: A&P Assessment and Plan (1) Post-ERCP acute pancreatitis: Code(s): K91.89 - Other postprocedural complications and disorders of digestive system; K85.90 - Acute pancreatitis without necrosis or infection, unspecified Status: Acute Assessment and Plan: yesterday PD cannulated once, also received indomethacin but still developed pancreatitis treated with iv fluids, npo bun normal, hgb 13- will monitor (2) Elevated LFTs: Code(s): R79.89 - Other specified abnormal findings of blood chemistry Status: Acute Assessment and Plan: this is trending down after lap felicia despite now pancreatitis (3) Cholelithiasis: Qualifiers: Cholelithiasis location: gallbladder and bile duct Cholecystitis presence: without cholecystitis Biliary obstruction: with biliary obstruction Qualified Code(s): K80.71 - Calculus of gallbladder and bile duct without cholecystitis with obstruction Code(s): K80.20 - Calculus of gallbladder without cholecystitis without obstruction Status: Acute (4) Acute epigastric pain: Code(s): R10.13 - Epigastric pain Status: Acute Assessment and Plan: now mostly from pancreatitis medical management (5) Common bile duct dilatation: Code(s): K83.8 - Other specified diseases of biliary tract Status: Acute Assessment and Plan: s/p ercp Subjective Date/time seen: 06/11/24 13:05 Interval history: ercp yesterday with sphincterotomy, unfortunately after procedure with severe abdominal pain this has improved some today, some nausea CT scan showed interstitial pancreatitis, on iv fluids now and npo status Review of Systems Review of Systems: All systems reviewed & are unremarkable except as noted in HPI and below Exam Const: General: comfortable HENMT: Face/Nose/Sinus: Normal nares present Eyes: General: appearance normal, both eyes and all related structures Neck: Neck: supple Resp: Effort & Inspection: normal respiratory effort Cardio: Rate: regular rate GI: Inspection: non-distended GI Palp: Yes Tenderness to palpation present (GI) (epigastric and RUQ) Auscultation: normal bowel sounds Skin: General skin exam: normal color Neuro: Speech: normal speech Motor exam (neuro): 5/5 motor strength present throughout Extrem: General: normal to inspection Psych: Mental Status: mental status grossly normal Objective Data Vital Signs Vital Signs: Vital Signs - 24 hr 06/10/24 14:01 06/10/24 15:25 06/10/24 15:35 Temperature 97.7 F 98.0 F Pulse Rate 58 L 67 68 Respiratory Rate 20 21 H 23 H Blood Pressure 121/73 139/80 154/89 H Pulse Oximetry 100 100 100 Oxygen Delivery Room Air Simple Face Mask Simple Face Mask Oxygen Flow Rate 4 4 06/10/24 15:45 06/10/24 15:55 06/10/24 16:05 Temperature Pulse Rate 62 63 64 Respiratory Rate 24 H 25 H 66 H Blood Pressure 142/90 H 128/76 142/66 H Pulse Oximetry 98 100 100 Oxygen Delivery Room Air Room Air Room Air Oxygen Flow Rate 06/10/24 16:15 06/10/24 16:25 06/10/24 16:34 Temperature 98.4 F 97.4 F L Pulse Rate 55 L 53 L 58 L Respiratory Rate 28 H 22 H 22 H Blood Pressure 143/74 H 136/77 136/96 H Pulse Oximetry 100 99 100 Oxygen Delivery Room Air Room Air Oxygen Flow Rate 06/10/24 16:35 06/10/24 20:00 06/10/24 20:32 Temperature 98.2 F 98.5 F Pulse Rate 52 L 46 L 87 Respiratory Rate 24 H 22 H Blood Pressure 135/58 L 136/76 Pulse Oximetry 100 98 Oxygen Delivery Room Air Oxygen Flow Rate 06/10/24 22:10 06/11/24 00:00 06/11/24 00:12 Temperature 98.0 F 98.2 F Pulse Rate 60 42 L 62 Respiratory Rate 18 18 Blood Pressure 141/73 H 138/70 Pulse Oximetry 100 98 Oxygen Delivery Oxygen Flow Rate 06/11/24 04:00 06/11/24 06:15 06/11/24 07:54 Temperature 97.8 F Pulse Rate 51 L 78 Respiratory Rate 18 Blood Pressure 122/71 Pulse Oximetry 97 Oxygen Delivery Room Air Oxygen Flow Rate 06/11/24 09:02 06/11/24 09:02 06/11/24 10:00 Temperature 98.1 F Pulse Rate 78 94 Respiratory Rate 14 Blood Pressure 112/66 Pulse Oximetry 97 99 Oxygen Delivery Room Air Oxygen Flow Rate 06/11/24 12:00 Temperature Pulse Rate 88 Respiratory Rate Blood Pressure Pulse Oximetry Oxygen Delivery Oxygen Flow Rate Intake/Output Intake/Output: Intake & Output 06/08/24 06/09/24 06/10/2406/11/24 23:59 23:59 23:59 23:59 Intake Total 1999 3350 1200 Balance 1999 3350 1200 Meds/Results Medications: Active Medications Generic Name Dose Route Start Last Admin Trade Name Freq PRN Reason Stop Dose Admin Acetaminophen 500 mg 06/09/24 18:49 06/10/24 10:14 Acetaminophen 500 Mg Tablet PO 500 mg Q6H PRN Administration Pain Rated 1-3 Hydrocodone Bitart/Acetaminophen 1 tab 06/09/24 18:49 Hydrocodone/Acetaminophen (*Crx) 5-325 Mg Tablet PO Q4H PRN Pain Rated 4-6 Hydrocodone Bitart/Acetaminophen 1 tab 06/09/24 18:49 Hydrocodone/Acetaminophen (*Crx) 7.5-325 Mg Tablet PO Q4H PRN Pain Rated 7-10 Diphenhydramine HCl 25 mg 06/09/24 18:49 06/09/24 20:07 Diphenhydramine Hcl Inj 50 Mg/Ml Vial IV PUSH 25 mg Q6H PRN Administration Itching Sodium Chloride 1,000 mls @ 125 mls/hr 06/08/24 16:25 06/11/24 05:47 Normal Saline Iv IV CONT Not Given .Q8H MALINA Ibuprofen 800 mg in 200 mls @ 400 mls/hr 06/09/24 18:49 06/11/24 12:34 Caldolor 800 Mg/200 Ml IVPB 400 mls/hr Q6H PRN Administration Breakthrough Pain Rated 1-3 or NPO Morphine Sulfate 2 mg 06/09/24 18:49 06/10/24 16:10 Morphine Sulfate (*Crx) 2 Mg/Ml Inj IV PUSH 2 mg Q2H PRN Administration Breakthrough Pain Rated 4-6 or NPO Morphine Sulfate 4 mg 06/09/24 18:49 06/11/24 09:02 Morphine Sulfate (*Crx) 4 Mg/Ml Inj IV PUSH 4 mg Q2H PRN Administration Breakthrough Pain Rated 7-10 or NPO Naloxone HCl 0.1 mg 06/09/24 18:49 Naloxone Hcl 0.4 Mg/Ml Vial IV PUSH Q2M PRN Opiate Reversal Ondansetron HCl 4 mg 06/09/24 18:49 06/11/24 09:05 Ondansetron Inj 4 Mg/2 Ml Vial IV PUSH 4 mg Q4H PRN Administration Nausea And Vomiting Perflutren Lipid Microsphere 0 ml 06/08/24 17:08 Perflutren Lipid Microspheres 1.5 Ml Vial Diluted To 10 Ml Total Volume IV PUSH 06/11/24 17:09 ONCE PRN adequate visualization Protocol Radiology Results: ITS Impressions Chest X-Ray 06/08/24 16:50 IMPRESSION: 1. No acute cardiopulmonary disease. Abdomen Ultrasound 06/08/24 17:38 IMPRESSION: 1. Gallbladder sludge without evident shadowing cholelithiasis over this might be due to the relatively tiny size of the few calcific stone seen on prior CT. 2. Normal proximal common bile duct measurement of 4-5 mm however the more distal duct which was dilated to [address] is obscured. If there is continued clinical concern for biliary obstruction would consider MRCP for further evaluation. MRCP 06/09/24 10:50 IMPRESSION: 1. Cholelithiasis with 3-4 mm stone in the cystic duct which has a low confluence with the distal common bile duct. No dilation of the gallbladder to suggest a significant obstruction or acute cholecystitis. 2. Mild pulmonary edema, trace bilateral pleural effusions and trace amount of perihepatic and perisplenic ascites. Cholangiogram,Operative 06/09/24 18:21 IMPRESSION: 1. 4 mm stone in the distal common bile duct. 2. Two 3 mm filling defects in the cystic duct which may be gas bubbles or stones. Endo Retro Cholangiopancreatogram 06/10/24 16:18 IMPRESSION: 1. Enlarged common duct. Please refer to the ERCP procedure note for additional details. Abdomen X-Ray 06/10/24 16:24 IMPRESSION: NO definite ACUTE ABDOMINAL FINDINGS. Contrast seen in the right side of the colon and in the gallbladder. Abdomen/Pelvis CT 06/10/24 21:41 IMPRESSION: 1. Acute interstitial pancreatitis. 2. Small pleural effusions. Labs Labs: Laboratory Results - last 24 hr 06/10/24 06/11/24 14:01 05:38 WBC 16.5 H RBC 4.31 Hgb 13.5 Hct 39.2 MCV 91.0 MCH 31.3 MCHC 34.4 RDW 12.1 Plt Count 305 MPV 9.8 Sodium 135 L Potassium 4.1 Chloride 105 Carbon Dioxide 24 Anion Gap 6 BUN 8 Creatinine 0.80 Estim Creat Clear Calc Not Reportable Estimated GFR > 60 Glucose 102 Calcium 8.3 L Total Bilirubin 1.2 AST 71 H ALT 253 H Alkaline Phosphatase 116 Total Protein 7.0 Albumin 3.5 Lipase 3852 H POC Urine HCG, Qual Negative
[2024-06-11] MEDS: FAMOTIDINE 20 MG/2 ML VIAL IV PUSH (21:08)
[2024-06-11] MEDS: BELLADONNA ALK/PHENOB ELIX 10 ML, MAG HYDROX/ALUMINUM HYD/SIMETH 30 ML, LIDOCAINE 2% VI... PO (21:10)
[2024-06-12] VITALS (13 sets, daily range): BP systolic 85–108; BP diastolic 50–67; PULSE 87–102; RESP 16–28; TEMP 36.2–37; O2SAT 95–98
[2024-06-12] MEDS: IBUPROFEN IV 800 MG/200 ML 800 MG/200 ML BAG 400 MG IVPB ×3 (01:58→16:34)
[2024-06-12] MEDS: SODIUM CHLORIDE 0.9% IV 1,000 ML 100 ML IV CONT ×2 (02:02→20:00)
--- NOTE | 2024-06-12 07:55 | P.PNIM_ITS ---
Progress Note: A&P Assessment and Plan (1) Cholelithiasis: Qualifiers: Biliary obstruction: with biliary obstruction Cholecystitis presence: without cholecystitis Cholelithiasis location: gallbladder and bile duct Qualified Code(s): K80.71 - Calculus of gallbladder and bile duct without cholecystitis with obstruction Code(s): K80.20 - Calculus of gallbladder without cholecystitis without obstruction Status: Acute Assessment and Plan: - Elevated LFTs, downtrending - Abdomen/Pelvis CT 1. Cholelithiasis with mild dilation the common bile duct 8 mm in minimal central and hepatic biliary ductal dilation. No distal obstructing stone identified although could consider MRCP for more sensitive evaluation as clinically indicated. 2. 3.7 cm left adnexal cyst. - Abdomen Ultrasound 1. Gallbladder sludge without evident shadowing cholelithiasis over this might be due to the relatively tiny size of the few calcific stone seen on prior CT. 2. Normal proximal common bile duct measurement of 4-5 mm however the more distal duct which was dilated to [address] is obscured. - MRCP 1. Cholelithiasis with 3-4 mm stone in the cystic duct which has a low confluence with the distal common bile duct. No dilation of the gallbladder to suggest a significant obstruction or acute cholecystitis. 2. Mild pulmonary edema, trace bilateral pleural effusions and trace amount of perihepatic and perisplenic ascites. - IV pain management - Monitor vital signs, I and O's, check stool output, neuro status and patient is a fall risk - Monitor serum electrolytes and CBC - Consult GI for further evaluation, appreciate assistance and recommendation See MRCP result above - Consult surgery for further evaluation, appreciate assistance and recommendation - laparoscopic cholecystectomy with DR. Paulino-06/09 - continue supportive care 06/11- ercp yesterday with sphincterotomy, unfortunately after procedure with severe abdominal pain pancreatitis- per CT report 06/12-, IV fluids, PIan control surgery, GI following this am- low BP, rr higher stil abd pain, WBC elevated- will repeat CT scan- ordered. 250 ml bolus 0.9 NS Pt is clinically better today (2) Transaminitis: Code(s): R74.01 - Elevation of levels of liver transaminase levels Status: Acute Assessment and Plan: LFTs on admission: Tot bili 2.4, AST 1378, ALT 812, Alk phos 161 Likely secondary to common bile duct and hepatic biliary ductal dilation as seen on imaging - LFTs on am labs: Tot bili 1.0, AST 482, ALT 558, Alk phos 125 - See cholelithiasis plan #1 - Monitor 06/12- labs are ordered-pending (3) Common bile duct dilatation: Code(s): K83.8 - Other specified diseases of biliary tract Status: Acute Assessment and Plan: see choledocholithiasis plan #1 (4) Bradycardia: Code(s): R00.1 - Bradycardia, unspecified Status: Acute Assessment and Plan: Sinus bradycardia with a heart rate in the 40-50s. No significant bradycardia, pauses, or bradyarrhythmias demonstrated on telemetry. Blood pressure is stable and she is asymptomatic. - Echo ordered - Apnea link ordered - Continue telemetry - Cardiology consulted At this point no other cardiac workup is being recommended VS reviewed- 45-78 range-continue to be asymptomatic received propofol during procedure- so could be some bradycardic episodes from that- monitor (5) Post-ERCP acute pancreatitis: Code(s): K91.89 - Other postprocedural complications and disorders of digestive system; K85.90 - Acute pancreatitis without necrosis or infection, unspecified Status: Acute Assessment and Plan: 06/11- ercp yesterday with sphincterotomy, unfortunately after procedure with severe abdominal pain pancreatitis- per st report iv fluids, pain control clinically better- gi will advance diet Time Spent With Patient Time with patient: Greater than 35 minutes Subjective Date/time seen: 06/12/24 07:55 Interval history: 43-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 Pt is seen and examined. Ercp with sphincterotomy 06/10, post procedural pancreatitis. NPO, IV fluids, pain control. 06/12- pt is seen and examined. She just came back form CT. She reports feeling better, she looks better today as well. GI will let advance her diet. Still some abd pain-but improved from yesterday. Review of Systems Review of Systems: 12 systems were reviewed and are negativ e except for as per HPI. Gastrointestinal: Gastrointestinal: Reports abdominal pain Exam Narrative: General: female in no acute respiratory distress who is nontoxic appearing. HEENT: Normocephalic. Atraumatic. Extraocular movement intact. Sclera clear and anicteric. No facial asymmetry. Chest: Lungs are clear to auscultation bilaterally. No wheezes or crackles. CV: Heart was bradycardic with regular rhythm. S1-S2. No murmurs, gallops, or rubs. Abd: Abdomen was soft. Mild tenderness throughout worse in RUQ. Nondistended. Positive bowel sounds. No organomegaly or masses. Ext: No clubbing, cyanosis, or edema. 2+ DP pulses bilaterally. Neuro: Patient is alert and oriented x4. Cranial nerves 2-12 are intact. Speech is clear. Objective Data Vital Signs Vital Signs: Vital Signs - 24 hr 06/11/24 09:02 06/11/24 09:02 06/11/24 10:00 Temperature 98.1 F Pulse Rate 78 94 Respiratory Rate 14 Blood Pressure 112/66 Pulse Oximetry 97 99 Oxygen Delivery Room Air 06/11/24 12:00 06/11/24 14:04 06/11/24 16:00 Temperature 98.1 F Pulse Rate 88 80 91 Respiratory Rate 16 Blood Pressure 114/64 Pulse Oximetry 97 Oxygen Delivery 06/11/24 19:31 06/11/24 20:00 06/12/24 00:00 Temperature 98.3 F Pulse Rate 86 94 101 H Respiratory Rate 16 Blood Pressure 113/66 Pulse Oximetry 98 Oxygen Delivery 06/12/24 04:00 06/12/24 04:45 Temperature 97.7 F Pulse Rate 102 H 100 Respiratory Rate 20 Blood Pressure 107/63 Pulse Oximetry 97 Oxygen Delivery Intake/Output Intake/Output: Intake & Output 06/09/24 06/10/24 06/11/24 06/12/24 23:59 23:59 23:59 23:59 Intake Total 1999 3350 2400 1165 Balance 1999 3350 2400 1165 Meds/Results Medications: Active Medications Generic Name Dose Route Start Last Admin Trade Name Freq PRN Reason Stop Dose Admin Acetaminophen 500 mg 06/09/24 18:49 06/10/24 10:14 Acetaminophen 500 Mg Tablet PO 500 mg Q6H PRN Administration Pain Rated 1-3 Hydrocodone Bitart/Acetaminophen 1 tab 06/09/24 18:49 Hydrocodone/Acetaminophen (*Crx) 5-325 Mg Tablet PO Q4H PRN Pain Rated 4-6 Hydrocodone Bitart/Acetaminophen 1 tab 06/09/24 18:49 Hydrocodone/Acetaminophen (*Crx) 7.5-325 Mg Tablet PO Q4H PRN Pain Rated 7-10 Diphenhydramine HCl 25 mg 06/09/24 18:49 06/09/24 20:07 Diphenhydramine Hcl Inj 50 Mg/Ml Vial IV PUSH 25 mg Q6H PRN Administration Itching Famotidine 20 mg 06/11/24 21:00 06/11/24 21:08 Famotidine 20 Mg/2 Ml Vial IV PUSH 20 mg Q12HR MALINA Administration Sodium Chloride 1,000 mls @ 125 mls/hr 06/08/24 16:25 06/12/24 02:02 Normal Saline Iv IV CONT 100 mls/hr .Q8H MALINA Administration Ibuprofen 800 mg in 200 mls @ 400 mls/hr 06/09/24 18:49 06/12/24 02:30 Caldolor 800 Mg/200 Ml IVPB Infused Q6H PRN Infusion Breakthrough Pain Rated 1-3 or NPO Morphine Sulfate 2 mg 06/09/24 18:49 06/10/24 16:10 Morphine Sulfate (*Crx) 2 Mg/Ml Inj IV PUSH 2 mg Q2H PRN Administration Breakthrough Pain Rated 4-6 or NPO Morphine Sulfate 4 mg 06/09/24 18:49 06/11/24 21:13 Morphine Sulfate (*Crx) 4 Mg/Ml Inj IV PUSH 4 mg Q2H PRN Administration Breakthrough Pain Rated 7-10 or NPO Naloxone HCl 0.1 mg 06/09/24 18:49 Naloxone Hcl 0.4 Mg/Ml Vial IV PUSH Q2M PRN Opiate Reversal Ondansetron HCl 4 mg 06/09/24 18:49 06/11/24 16:31 Ondansetron Inj 4 Mg/2 Ml Vial IV PUSH 4 mg Q4H PRN Administration Nausea And Vomiting Radiology Results: ITS Impressions Chest X-Ray 06/08/24 16:50 IMPRESSION: 1. No acute cardiopulmonary disease. Abdomen Ultrasound 06/08/24 17:38 IMPRESSION: 1. Gallbladder sludge without evident shadowing cholelithiasis over this might be due to the relatively tiny size of the few calcific stone seen on prior CT. 2. Normal proximal common bile duct measurement of 4-5 mm however the more distal duct which was dilated to [address] is obscured. If there is continued clinical concern for biliary obstruction would consider MRCP for further evaluation. MRCP 06/09/24 10:50 IMPRESSION: 1. Cholelithiasis with 3-4 mm stone in the cystic duct which has a low confluence with the distal common bile duct. No dilation of the gallbladder to suggest a significant obstruction or acute cholecystitis. 2. Mild pulmonary edema, trace bilateral pleural effusions and trace amount of perihepatic and perisplenic ascites. Cholangiogram,Operative 06/09/24 18:21 IMPRESSION: 1. 4 mm stone in the distal common bile duct. 2. Two 3 mm filling defects in the cystic duct which may be gas bubbles or stones. Endo Retro Cholangiopancreatogram 06/10/24 16:18 IMPRESSION: 1. Enlarged common duct. Please refer to the ERCP procedure note for additional details. Abdomen X-Ray 06/10/24 16:24 IMPRESSION: NO definite ACUTE ABDOMINAL FINDINGS. Contrast seen in the right side of the colon and in the gallbladder. Abdomen/Pelvis CT 06/10/24 21:41 IMPRESSION: 1. Acute interstitial pancreatitis. 2. Small pleural effusions. Quality VTE Prophylaxis VTE prophylaxis: mechanical ordered
[2024-06-12 08:20] LABS: Hematocrit 43.7 % (37.0-47.0); Hemoglobin 15.2 g/dL (12.0-15.0); Mean Corpuscular HGB Conc 34.8 g/dl (32-36); Mean Corpuscular Hemoglobin 31.7 pg (26-34); Mean Platelet Volume 9.3 fl (7.4-10.4); Platelet Count Result 266 k/mm3 (150-375); Red Cell Distribution Width 12.6 % (11.5-14.5); White Blood Count 17.8 K/mm3 (4.5-10.0)
[2024-06-12 08:24] LABS: Anion Gap 4 mmol/L (4-12); Blood Urea Nitrogen 9 mg/dL (7-17); Calcium 7.9 mg/dL (8.4-10.2); Carbon Dioxide 25 mmol/L (22-30); Chloride 106 mmol/L (98-107); Estimated Glomerular Filt Rate > 60; Glucose 99 mg/dL (65-110); Potassium 3.8 mmol/L (3.4-5.0); Sodium 135 mmol/L (137-145)
[2024-06-12] MEDS: FAMOTIDINE 20 MG/2 ML VIAL IV PUSH ×2 (08:26→21:08)
[2024-06-12] MEDS: MORPHINE SULFATE (*CRX) 4 MG/ML INJ IV PUSH ×2 (08:26→21:08)
[2024-06-12] MEDS: SODIUM CHLORIDE 0.9% IV 1,000 ML 999 ML IV CONT (10:02)
--- NOTE | 2024-06-12 10:40 | P.PNGS_ITS ---
Progress Note: A&P Assessment and Plan (1) Post-ERCP acute pancreatitis: Code(s): K91.89 - Other postprocedural complications and disorders of digestive system; K85.90 - Acute pancreatitis without necrosis or infection, unspecified Status: Acute Assessment and Plan: * Continue treatment as per GI. Advance diet once OK with GI. Surgically stable. Will continue to follow. (2) Cholelithiasis: Qualifiers: Cholelithiasis location: gallbladder and bile duct Cholecystitis presence: without cholecystitis Biliary obstruction: with biliary obstruction Qualified Code(s): K80.71 - Calculus of gallbladder and bile duct without cholecystitis with obstruction Code(s): K80.20 - Calculus of gallbladder without cholecystitis without obstruction Status: Acute Subjective Subjective Date/Time Seen: 06/12/24 10:40 Interval history: Pain slightly better today, but not much. No fevers. No flatus. Exam GI: Inspection: incision (intact with glue) GI Palp: Yes Tenderness to palpation present (GI) (epigastric and RUQ) Objective Data Vital Signs Vital Signs: Vital Signs - 24 hr 06/11/24 12:00 06/11/24 14:04 06/11/24 16:00 Temperature 98.1 F Pulse Rate 88 80 91 Respiratory Rate 16 Blood Pressure 114/64 Pulse Oximetry 97 Oxygen Delivery 06/11/24 19:31 06/11/24 20:00 06/12/24 00:00 Temperature 98.3 F Pulse Rate 86 94 101 H Respiratory Rate 16 Blood Pressure 113/66 Pulse Oximetry 98 Oxygen Delivery 06/12/24 04:00 06/12/24 04:45 06/12/24 08:00 Temperature 97.7 F Pulse Rate 102 H 100 102 H Respiratory Rate 20 Blood Pressure 107/63 Pulse Oximetry 97 Oxygen Delivery 06/12/24 08:31 06/12/24 08:45 Temperature 97.1 F L Pulse Rate 98 Respiratory Rate 27 H Blood Pressure 91/54 L Pulse Oximetry 95 Oxygen Delivery Room Air Intake/Output Intake/Output: Intake & Output 06/09/24 06/10/24 06/11/24 06/12/24 23:59 23:59 23:59 23:59 Intake Total 1999 3350 2400 1415 Balance 1999 3350 2400 1415 Meds/Results Medications: Active Medications Generic Name Dose Route Start Last Admin Trade Name Freq PRN Reason Stop Dose Admin Acetaminophen 500 mg 06/09/24 18:49 06/10/24 10:14 Acetaminophen 500 Mg Tablet PO 500 mg Q6H PRN Administration Pain Rated 1-3 Hydrocodone Bitart/Acetaminophen 1 tab 06/09/24 18:49 Hydrocodone/Acetaminophen (*Crx) 5-325 Mg Tablet PO Q4H PRN Pain Rated 4-6 Hydrocodone Bitart/Acetaminophen 1 tab 06/09/24 18:49 Hydrocodone/Acetaminophen (*Crx) 7.5-325 Mg Tablet PO Q4H PRN Pain Rated 7-10 Diphenhydramine HCl 25 mg 06/09/24 18:49 06/09/24 20:07 Diphenhydramine Hcl Inj 50 Mg/Ml Vial IV PUSH 25 mg Q6H PRN Administration Itching Famotidine 20 mg 06/11/24 21:00 06/12/24 08:26 Famotidine 20 Mg/2 Ml Vial IV PUSH 20 mg Q12HR MALINA Administration Sodium Chloride 1,000 mls @ 125 mls/hr 06/08/24 16:25 06/12/24 02:02 Normal Saline Iv IV CONT 100 mls/hr .Q8H MALINA Administration Ibuprofen 800 mg in 200 mls @ 400 mls/hr 06/09/24 18:49 06/12/24 10:16 Caldolor 800 Mg/200 Ml IVPB 400 mls/hr Q6H PRN Administration Breakthrough Pain Rated 1-3 or NPO Sodium Chloride 1,000 mls @ 999 mls/hr 06/12/24 09:49 06/12/24 10:16 Normal Saline Iv IV CONT 06/12/24 10:49 Infused .Q1H1M ONE Infusion Morphine Sulfate 2 mg 06/09/24 18:49 06/10/24 16:10 Morphine Sulfate (*Crx) 2 Mg/Ml Inj IV PUSH 2 mg Q2H PRN Administration Breakthrough Pain Rated 4-6 or NPO Morphine Sulfate 4 mg 06/09/24 18:49 06/12/24 08:26 Morphine Sulfate (*Crx) 4 Mg/Ml Inj IV PUSH 4 mg Q2H PRN Administration Breakthrough Pain Rated 7-10 or NPO Naloxone HCl 0.1 mg 06/09/24 18:49 Naloxone Hcl 0.4 Mg/Ml Vial IV PUSH Q2M PRN Opiate Reversal Ondansetron HCl 4 mg 06/09/24 18:49 06/11/24 16:31 Ondansetron Inj 4 Mg/2 Ml Vial IV PUSH 4 mg Q4H PRN Administration Nausea And Vomiting Radiology Results: ITS Impressions Chest X-Ray 06/08/24 16:50 IMPRESSION: 1. No acute cardiopulmonary disease. Abdomen Ultrasound 06/08/24 17:38 IMPRESSION: 1. Gallbladder sludge without evident shadowing cholelithiasis over this might be due to the relatively tiny size of the few calcific stone seen on prior CT. 2. Normal proximal common bile duct measurement of 4-5 mm however the more d istal duct which was dilated to [address] is obscured. If there is continued clinical concern for biliary obstruction would consider MRCP for further evaluation. MRCP 06/09/24 10:50 IMPRESSION: 1. Cholelithiasis with 3-4 mm stone in the cystic duct which has a low confluence with the distal common bile duct. No dilation of the gallbladder to suggest a significant obstruction or acute cholecystitis. 2. Mild pulmonary edema, trace bilateral pleural effusions and trace amount of perihepatic and perisplenic ascites. Cholangiogram,Operative 06/09/24 18:21 IMPRESSION: 1. 4 mm stone in the distal common bile duct. 2. Two 3 mm filling defects in the cystic duct which may be gas bubbles or stones. Endo Retro Cholangiopancreatogram 06/10/24 16:18 IMPRESSION: 1. Enlarged common duct. Please refer to the ERCP procedure note for additional details. Abdomen X-Ray 06/10/24 16:24 IMPRESSION: NO definite ACUTE ABDOMINAL FINDINGS. Contrast seen in the right side of the colon and in the gallbladder. Abdomen/Pelvis CT 06/10/24 21:41 IMPRESSION: 1. Acute interstitial pancreatitis. 2. Small pleural effusions. Labs Labs: Laboratory Results - last 24 hr 06/12/24 08:03 WBC 17.8 H RBC 4.80 Hgb 15.2 H Hct 43.7 MCV 91.0 MCH 31.7 MCHC 34.8 RDW 12.6 Plt Count 266 MPV 9.3 Sodium 135 L Potassium 3.8 Chloride 106 Carbon Dioxide 25 Anion Gap 4 BUN 9 Creatinine 0.90 Estim Creat Clear Calc Not Reportable Estimated GFR > 60 Glucose 99 Calcium 7.9 L
[2024-06-12] MEDS: ONDANSETRON INJ 4 MG/2 ML VIAL IV PUSH ×2 (14:41→21:08)
--- NOTE | 2024-06-12 15:06 | P.PNGI_ITS ---
Progress Note: A&P Assessment and Plan (1) Post-ERCP acute pancreatitis: Code(s): K91.89 - Other postprocedural complications and disorders of digestive system; K85.90 - Acute pancreatitis without necrosis or infection, unspecified Status: Acute Assessment and Plan: during ERCP the PD cannulated once, also received indomethacin but still developed pancreatitis treated with iv fluids, npo pending new CT scan, still with pain but improved some, will try CL diet (2) Elevated LFTs: Code(s): R79.89 - Other specified abnormal findings of blood chemistry Status: Acute Assessment and Plan: this is trending down after lap felicia despite now pancreatitis (3) Cholelithiasis: Qualifiers: Cholelithiasis location: gallbladder and bile duct Cholecystitis presence: without cholecystitis Biliary obstruction: with biliary obstruction Qualified Code(s): K80.71 - Calculus of gallbladder and bile duct without cholecystitis with obstruction Code(s): K80.20 - Calculus of gallbladder without cholecystitis without obstruction Status: Acute (4) Acute epigastric pain: Code(s): R10.13 - Epigastric pain Status: Acute Assessment and Plan: now mostly from pancreatitis medical management (5) Common bile duct dilatation: Code(s): K83.8 - Other specified diseases of biliary tract Status: Acute Assessment and Plan: s/p ercp Subjective Date/time seen: 06/12/24 15:06 Interval history: with still pain but has improved some, no emesis, she is hungry Review of Systems Review of Systems: All systems reviewed & are unremarkable except as noted in HPI and below Exam Const: General: comfortable HENMT: Face/Nose/Sinus: Normal nares present Eyes: General: appearance normal, both eyes and all related structures Neck: Neck: supple Resp: Effort & Inspection: normal respiratory effort Cardio: Rate: regular rate GI: Inspection: non-distended GI Palp: Yes Tenderness to palpation present (GI) (epigastric and RUQ) Auscultation: normal bowel sounds Skin: General skin exam: normal color Neuro: Speech: normal speech Motor exam (neuro): 5/5 motor strength present throughout Extrem: General: normal to inspection Psych: Mental Status: mental status grossly normal Objective Data Vital Signs Vital Signs: Vital Signs - 24 hr 06/11/24 16:00 06/11/24 19:31 06/11/24 20:00 Temperature 98.3 F Pulse Rate 91 86 94 Respiratory Rate 16 Blood Pressure 113/66 Pulse Oximetry 98 Oxygen Delivery 06/12/24 00:00 06/12/24 04:00 06/12/24 04:45 Temperature 97.7 F Pulse Rate 101 H 102 H 100 Respiratory Rate 20 Blood Pressure 107/63 Pulse Oximetry 97 Oxygen Delivery 06/12/24 08:00 06/12/24 08:31 06/12/24 08:45 Temperature 97.1 F L Pulse Rate 102 H 98 Respiratory Rate 27 H Blood Pressure 91/54 L Pulse Oximetry 95 Oxygen Delivery Room Air 06/12/24 11:27 06/12/24 12:00 06/12/24 13:27 Temperature 97.3 F L Pulse Rate 87 98 99 Respiratory Rate 28 H Blood Pressure 100/54 L 85/51 L Pulse Oximetry 97 Oxygen Delivery 06/12/24 14:56 Temperature Pulse Rate 96 Respiratory Rate Blood Pressure 96/50 L Pulse Oximetry Oxygen Delivery Intake/Output Intake/Output: Intake & Output 06/09/24 06/10/24 06/11/24 06/12/24 23:59 23:59 23:59 23:59 Intake Total 1999 3350 2400 1615 Balance 1999 3350 2400 1615 Meds/Results Medications: Active Medications Generic Name Dose Route Start Last Admin Trade Name Freq PRN Reason Stop Dose Admin Acetaminophen 500 mg 06/09/24 18:49 06/10/24 10:14 Acetaminophen 500 Mg Tablet PO 500 mg Q6H PRN Administration Pain Rated 1-3 Hydrocodone Bitart/Acetaminophen 1 tab 06/09/24 18:49 Hydrocodone/Acetaminophen (*Crx) 5-325 Mg Tablet PO Q4H PRN Pain Rated 4-6 Hydrocodone Bitart/Acetaminophen 1 tab 06/09/24 18:49 Hydrocodone/Acetaminophen (*Crx) 7.5-325 Mg Tablet PO Q4H PRN Pain Rated 7-10 Diphenhydramine HCl 25 mg 06/09/24 18:49 06/09/24 20:07 Diphenhydramine Hcl Inj 50 Mg/Ml Vial IV PUSH 25 mg Q6H PRN Administration Itching Famotidine 20 mg 06/11/24 21:00 06/12/24 08:26 Famotidine 20 Mg/2 Ml Vial IV PUSH 20 mg Q12HR MALINA Administration Sodium Chloride 1,000 mls @ 125 mls/hr 06/08/24 16:25 06/12/24 02:02 Normal Saline Iv IV CONT 100 mls/hr .Q8H MALINA Administration Ibuprofen 800 mg in 200 mls @ 400 mls/hr 06/09/24 18:49 06/12/24 10:45 Caldolor 800 Mg/200 Ml IVPB Infused Q6H PRN Infusion Breakthrough Pain Rated 1-3 or NPO Morphine Sulfate 2 mg 06/09/24 18:49 06/10/24 16:10 Morphine Sulfate (*Crx) 2 Mg/Ml Inj IV PUSH 2 mg Q2H PRN Administration Breakthrough Pain Rated 4-6 or NPO Morphine Sulfate 4 mg 06/09/24 18:49 06/12/24 08:26 Morphine Sulfate (*Crx) 4 Mg/Ml Inj IV PUSH 4 mg Q2H PRN Administration Breakthrough Pain Rated 7-10 or NPO Naloxone HCl 0.1 mg 06/09/24 18:49 Naloxone Hcl 0.4 Mg/Ml Vial IV PUSH Q2M PRN Opiate Reversal Ondansetron HCl 4 mg 06/09/24 18:49 06/12/24 14:41 Ondansetron Inj 4 Mg/2 Ml Vial IV PUSH 4 mg Q4H PRN Administration Nausea And Vomiting Radiology Results: ITS Impressions Chest X-Ray 06/08/24 16:50 IMPRESSION: 1. No acute cardiopulmonary disease. Abdomen Ultrasound 06/08/24 17:38 IMPRESSION: 1. Gallbladder sludge without evident shadowing cholelithiasis over this might be due to the relatively tiny size of the few calcific stone seen on prior CT. 2. Normal proximal common bile duct measurement of 4-5 mm however the more distal duct which was dilated to [address] is obscured. If there is continued clinical concern for biliary obstruction would consider MRCP for furth er evaluation. MRCP 06/09/24 10:50 IMPRESSION: 1. Cholelithiasis with 3-4 mm stone in the cystic duct which has a low confluence with the distal common bile duct. No dilation of the gallbladder to suggest a significant obstruction or acute cholecystitis. 2. Mild pulmonary edema, trace bilateral pleural effusions and trace amount of perihepatic and perisplenic ascites. Cholangiogram,Operative 06/09/24 18:21 IMPRESSION: 1. 4 mm stone in the distal common bile duct. 2. Two 3 mm filling defects in the cystic duct which may be gas bubbles or stones. Endo Retro Cholangiopancreatogram 06/10/24 16:18 IMPRESSION: 1. Enlarged common duct. Please refer to the ERCP procedure note for additional details. Abdomen X-Ray 06/10/24 16:24 IMPRESSION: NO definite ACUTE ABDOMINAL FINDINGS. Contrast seen in the right side of the colon and in the gallbladder. Abdomen/Pelvis CT 06/12/24 13:23 Impression: Acute pancreatitis, with significant interval worsening of peripancreatic fluid and inflammatory change, with fluid extending into the right paracolic gutter and pelvis. No pancreatic necrosis or pseudocyst. 3.6 cm left ovarian cyst. [id number] right pleural effusion and small left pleural effusion. Labs Labs: Laboratory Results - last 24 hr 06/12/24 08:03 WBC 17.8 H RBC 4.80 Hgb 15.2 H Hct 43.7 MCV 91.0 MCH 31.7 MCHC 34.8 RDW 12.6 Plt Count 266 MPV 9.3 Sodium 135 L Potassium 3.8 Chloride 106 Carbon Dioxide 25 Anion Gap 4 BUN 9 Creatinine 0.90 Estim Creat Clear Calc Not Reportable Estimated GFR > 60 Glucose 99 Calcium 7.9 L
[2024-06-12] MEDS: HYDROcodone/acetaminophen (*CRX) 7.5-325 MG TABLET 1 TAB PO (19:59)
[2024-06-12] MEDS: diphenhydrAMINE HCl INJ 50 MG/ML VIAL 25 MG IV PUSH (21:08)
[2024-06-13] VITALS (12 sets, daily range): BP systolic 80–100; BP diastolic 50–62; PULSE 89–107; RESP 16–28; TEMP 36.4–36.8; O2SAT 92–96
[2024-06-13] MEDS: IBUPROFEN IV 800 MG/200 ML 800 MG/200 ML BAG 400 MG IVPB ×2 (01:30→23:25)
[2024-06-13] MEDS: ONDANSETRON INJ 4 MG/2 ML VIAL IV PUSH ×5 (01:34→20:23)
[2024-06-13] MEDS: SODIUM CHLORIDE 0.9% IV 1,000 ML 125 ML IV CONT ×3 (04:40→21:37)
[2024-06-13] MEDS: MORPHINE SULFATE (*CRX) 4 MG/ML INJ IV PUSH ×4 (05:28→20:23)
[2024-06-13 05:41] LABS: Hematocrit 38.3 % (37.0-47.0); Hemoglobin 12.8 g/dL (12.0-15.0); Mean Corpuscular HGB Conc 33.4 g/dl (32-36); Mean Corpuscular Hemoglobin 30.9 pg (26-34); Mean Corpuscular Volume 92.5 fl (80-100); Mean Platelet Volume 9.7 fl (7.4-10.4); Platelet Count Result 247 k/mm3 (150-375); Red Blood Count 4.14 M/mm3 (4.2-5.4); White Blood Count 14.5 K/mm3 (4.5-10.0)
[2024-06-13 06:00] LABS: Anion Gap 3 mmol/L (4-12); Blood Urea Nitrogen 8 mg/dL (7-17); Carbon Dioxide 24 mmol/L (22-30); Chloride 108 mmol/L (98-107); Potassium 3.3 mmol/L (3.4-5.0); Sodium 135 mmol/L (137-145)
[2024-06-13 06:01] LABS: Alanine Aminotransferase 79 U/L (6-35); Albumin Level 2.5 g/dL (3.5-5.1); Alkaline Phosphatase 86 U/L (38-126); Aspartate Amino Transferase 22 U/L (14-36); Bilirubin,Total 1.9 mg/dL (0.2-1.3); Calcium 7.8 mg/dL (8.4-10.2); Estimated Glomerular Filt Rate > 60; Glucose 78 mg/dL (65-110)
[2024-06-13] MEDS: FAMOTIDINE 20 MG/2 ML VIAL IV PUSH ×2 (08:28→20:23)
[2024-06-13] MEDS: IBUPROFEN IV 800 MG/200 ML 800 MG/200 ML BAG 275 MG IVPB ×2 (10:06→16:47)
--- NOTE | 2024-06-13 10:49 | P.PNIM_ITS ---
Progress Note: A&P Assessment and Plan (1) Cholelithiasis: Qualifiers: Cholelithiasis location: gallbladder and bile duct Cholecystitis presence: without cholecystitis Biliary obstruction: with biliary obstruction Qualified Code(s): K80.71 - Calculus of gallbladder and bile duct without cholecystitis with obstruction Code(s): K80.20 - Calculus of gallbladder without cholecystitis without obstruction Status: Acute Assessment and Plan: - Elevated LFTs, downtrending - Abdomen/Pelvis CT 1. Cholelithiasis with mild dilation the common bile duct 8 mm in minimal central and hepatic biliary ductal dilation. No distal obstructing stone identified although could consider MRCP for more sensitive evaluation as clinically indicated. 2. 3.7 cm left adnexal cyst. - Abdomen Ultrasound 1. Gallbladder sludge without evident shadowing cholelithiasis over this might be due to the relatively tiny size of the few calcific stone seen on prior CT. 2. Normal proximal common bile duct measurement of 4-5 mm however the more distal duct which was dilated to [address] is obscured. - MRCP 1. Cholelithiasis with 3-4 mm stone in the cystic duct which has a low confluence with the distal common bile duct. No dilation of the gallbladder to suggest a significant obstruction or acute cholecystitis. 2. Mild pulmonary edema, trace bilateral pleural effusions and trace amount of perihepatic and perisplenic ascites. - IV pain management - Monitor vital signs, I and O's, check stool output, neuro status and patient is a fall risk - Monitor serum electrolytes and CBC - Consult GI for further evaluation, appreciate assistance and recommendation See MRCP result above - Consult surgery for further evaluation, appreciate assistance and recommendation - laparoscopic cholecystectomy with DR. Paulino-06/09 - continue supportive care 06/11- ercp yesterday with sphincterotomy, unfortunately after procedure with severe abdominal pain pancreatitis- per CT report 06/12-, IV fluids, Pain control surgery, GI following this am- low BP, rr higher still abd pain, WBC elevated- will repeat CT scan- ordered. 250 ml bolus 0.9 NS Pt is clinically better today 06/13- stable- GI advancing diet- monitor (2) Transaminitis: Code(s): R74.01 - Elevation of levels of liver transaminase levels Status: Acute Assessment and Plan: LFTs on admission: Tot bili 2.4, AST 1378, ALT 812, Alk phos 161 Likely secondary to common bile duct and hepatic biliary ductal dilation as seen on imaging - LFTs on am labs: Tot bili 1.0, AST 482, ALT 558, Alk phos 125 - See cholelithiasis plan #1 - Monitor 06/12- labs are ordered-pending 06/13- improving labs (3) Common bile duct dilatation: Code(s): K83.8 - Other specified diseases of biliary tract Status: Acute Assessment and Plan: see choledocholithiasis plan #1 (4) Bradycardia: Code(s): R00.1 - Bradycardia, unspecified Status: Acute Assessment and Plan: Sinus bradycardia with a heart rate in the 40-50s. No significant bradycardia, pauses, or bradyarrhythmias demonstrated on telemetry. Blood pressure is stable and she is asymptomatic. - Echo ordered - Apnea link ordered - Continue telemetry - Cardiology consulted At this point no other cardiac workup is being recommended VS reviewed- 45-78 range-continue to be asymptomatic received propofol during procedure- so could be some bradycardic episodes from that- monitor (5) Post-ERCP acute pancreatitis: Code(s): K91.89 - Other postprocedural complications and disorders of digestive system; K85.90 - Acute pancreatitis without necrosis or infection, unspecified Status: Acute Assessment and Plan: 06/11- ercp yesterday with sphincterotomy, unfortunately after procedure with severe abdominal pain pancreatitis- per st report iv fluids, pain control clinically better- gi will advance diet Time Spent With Patient Time with patient: Greater than 35 minutes Subjective Date/time seen: 06/13/24 10:49 Interval history: pt is seen and examined. Her pain is improved a bit. GI is advancing diet. IS, ambulation today Review of Systems Review of Systems: abd pain is better today. Gastrointestinal: Gastrointestinal: Reports abdominal pain Exam Narrative: General: female in no acute respiratory distress who is nontoxic appearing. HEENT: Normocephalic. Atraumatic. Extraocular movement intact. Sclera clear and anicteric. No facial asymmetry. Chest: Lungs are clear to auscultation bilaterally. No wheezes or crackles. CV: Heart was bradycardic with regular rhythm. S1-S2. No murmurs, gallops, or rubs. Abd: Abdomen tender. Nondistended. Positive bowel sounds. No organomegaly or masses. Ext: No clubbing, cyanosis, or edema. 2+ DP pulses bilaterally. Neuro: Patient is alert and oriented x4. Cranial nerves 2-12 are intact. Speech is clear. Const: General: comfortable Objective Data Vital Signs Vital Signs: Vital Signs - 24 hr 06/12/24 11:27 06/12/24 12:00 06/12/24 13:27 Temperature 97.3 F L Pulse Rate 87 98 99 Respiratory Rate 28 H Blood Pressure 100/54 L 85/51 L Pulse Oximetry 97 Oxygen Delivery 06/12/24 14:56 06/12/24 15:45 06/12/24 16:00 Temperature Pulse Rate 96 101 H 101 H Respiratory Rate Blood Pressure 96/50 L 108/67 Pulse Oximetry Oxygen Delivery 06/12/24 19:49 06/12/24 20:00 06/12/24 20:00 Temperature 98.6 F Pulse Rate 91 91 92 Respiratory Rate 16 16 Blood Pressure 102/57 L Pulse Oximetry 98 98 Oxygen Delivery Room Air 06/13/24 00:00 06/13/24 04:00 06/13/24 04:17 Temperature 97.8 F Pulse Rate 95 90 89 Respiratory Rate 20 Blood Pressure 80/50 L Pulse Oximetry 92 Oxygen Delivery 06/13/24 06:08 Temperature Pulse Rate Respiratory Rate Blood Pressure 90/62 L Pulse Oximetry Oxygen Delivery Intake/Output Intake/Output: Intake & Output 06/10/24 06/11/24 06/12/24 06/13/24 23:59 23:59 23:59 23:59 Intake Total 3350 2400 2835 1676.7 Balance 3350 2400 2835 1676.7 Meds/Results Medications: Active Medications Generic Name Dose Route Start Last Admin Trade Name Freq PRN Reason Stop Dose Admin Acetaminophen 500 mg 06/09/24 18:49 06/10/24 10:14 Acetaminophen 500 Mg Tablet PO 500 mg Q6H PRN Administration Pain Rated 1-3 Hydrocodone Bitart/Acetaminophen 1 tab 06/09/24 18:49 Hydrocodone/Acetaminophen (*Crx) 5-325 Mg Tablet PO Q4H PRN Pain Rated 4-6 Hydrocodone Bitart/Acetaminophen 1 tab 06/09/24 18:49 06/12/24 19:59 Hydrocodone/Acetaminophen (*Crx) 7.5-325 Mg Tablet PO 1 tab Q4H PRN Administration Pain Rated 7-10 Diphenhydramine HCl 25 mg 06/09/24 18:49 06/12/24 21:08 Diphenhydramine Hcl Inj 50 Mg/Ml Vial IV PUSH 25 mg Q6H PRN Administration Itching Famotidine 20 mg 06/11/24 21:00 06/13/24 08:28 Famotidine 20 Mg/2 Ml Vial IV PUSH 20 mg Q12HR MALINA Administration Sodium Chloride 1,000 mls @ 125 mls/hr 06/08/24 16:25 06/13/24 04:40 Normal Saline Iv IV CONT 125 mls/hr .Q8H MALINA Administration Ibuprofen 800 mg in 200 mls @ 400 mls/hr 06/09/24 18:49 06/13/24 10:06 Caldolor 800 Mg/200 Ml IVPB 275 mls/hr Q6H PRN Administration Breakthrough Pain Rated 1-3 or NPO Morphine Sulfate 2 mg 06/09/24 18:49 06/10/24 16:10 Morphine Sulfate (*Crx) 2 Mg/Ml Inj IV PUSH 2 mg Q2H PRN Administration Breakthrough Pain Rated 4-6 or NPO Morphine Sulfate 4 mg 06/09/24 18:49 06/13/24 09:42 Morphine Sulfate (*Crx) 4 Mg/Ml Inj IV PUSH 4 mg Q2H PRN Administration Breakthrough Pain Rated 7-10 or NPO Naloxone HCl 0.1 mg 06/09/24 18:49 Naloxone Hcl 0.4 Mg/Ml Vial IV PUSH Q2M PRN Opiate Reversal Ondansetron HCl 4 mg 06/09/24 18:49 06/13/24 09:44 Ondansetron Inj 4 Mg/2 Ml Vial IV PUSH 4 mg Q4H PRN Administration Nausea And Vomiting Radiology Results: ITS Impressions Chest X-Ray 06/08/24 16:50 IMPRESSION: 1. No acute cardiopulmonary disease. Abdomen Ultrasound 06/08/24 17:38 IMPRESSION: 1. Gallbladder sludge without evident shadowing cholelithiasis over this might be due to the relatively tiny size of the few calcific stone seen on prior CT. 2. Normal proximal common bile duct measurement of 4-5 mm however the more distal duct which was dilated to [address] is obscured. If there is continued clinical concern for biliary obstruction would consider MRCP for further evaluation. MRCP 06/09/24 10:50 IMPRESSION: 1. Cholelithiasis with 3-4 mm stone in the cystic duct which has a low confluence with the distal common bile duct. No dilation of the gallbladder to suggest a significant obstruction or acute cholecystitis. 2. Mild pulmonary edema, trace bilateral pleural effusions and trace amount of perihepatic and perisplenic ascites. Cholangiogram,Operative 06/09/24 18:21 IMPRESSION: 1. 4 mm stone in the distal common bile duct. 2. Two 3 mm filling defects in the cystic duct which may be gas bubbles or stones. Endo Retro Cholangiopancreatogram 06/10/24 16:18 IMPRESSION: 1. Enlarged common duct. Please refer to the ERCP procedure note for additional details. Abdomen X-Ray 06/10/24 16:24 IMPRESSION: NO definite ACUTE ABDOMINAL FINDINGS. Contrast seen in the right side of the colon and in the gallbladder. Abdomen/Pelvis CT 06/12/24 13:23 Impression: Acute pancreatitis, with significant interval worsening of peripancreatic fluid and inflammatory change, with fluid extending into the right paracolic gutter and pelvis. No pancreatic necrosis or pseudocyst. 3.6 cm left ovarian cyst. [id number] right pleural effusion and small left pleural effusion. Labs Labs: Laboratory Results - last 24 hr 06/13/24 05:01 WBC 14.5 H RBC 4.14 L Hgb 12.8 Hct 38.3 MCV 92.5 MCH 30.9 MCHC 33.4 RDW 13.0 Plt Count 247 MPV 9.7 Sodium 135 L Potassium 3.3 L Chloride 108 H Carbon Dioxide 24 Anion Gap 3 L BUN 8 Creatinine 0.80 Estim Creat Clear Calc Not Reportable Estimated GFR > 60 Glucose 78 Calcium 7.8 L Total Bilirubin 1.9 H AST 22 ALT 79 H Alkaline Phosphatase 86 Total Protein 5.0 L Albumin 2.5 L Quality VTE Prophylaxis VTE prophylaxis: mechanical ordered
[2024-06-13] MEDS: POTASSIUM CHLORIDE 20 MEQ PACKET (FOR LIQUID) 40 MEQ PO (11:13)
[2024-06-13] MEDS: MORPHINE SULFATE (*CRX) 2 MG/ML INJ IV PUSH (13:20)
--- NOTE | 2024-06-13 16:51 | WPDGIPROGNO ---
Progress Note: A&P Assessment and Plan (1) Post-ERCP acute pancreatitis: Code(s): K91.89 - Other postprocedural complications and disorders of digestive system; K85.90 - Acute pancreatitis without necrosis or infection, unspecified Status: Acute Assessment and Plan: will advance to full liquid diet pain has improved, hgb down to 12, wbc trending down (2) Elevated LFTs: Code(s): R79.89 - Other specified abnormal findings of blood chemistry Status: Acute Assessment and Plan: trending down after lap felicia despite now pancreatitis, noted mild elevated bili (3) Cholelithiasis: Qualifiers: Cholelithiasis location: gallbladder and bile duct Cholecystitis presence: without cholecystitis Biliary obstruction: with biliary obstruction Qualified Code(s): K80.71 - Calculus of gallbladder and bile duct without cholecystitis with obstruction Code(s): K80.20 - Calculus of gallbladder without cholecystitis without obstruction Status: Acute Assessment and Plan: s/p lap felicia (4) Acute epigastric pain: Code(s): R10.13 - Epigastric pain Status: Acute Assessment and Plan: now mostly from pancreatitis medical management (5) Common bile duct dilatation: Code(s): K83.8 - Other specified diseases of biliary tract Status: Acute Assessment and Plan: s/p ercp Subjective Date/time seen: 06/13/24 16:51 Interval history: still with pain but has improved some, distended but tolerated liquid diet + flatus Review of Systems Review of Systems: All systems reviewed & are unremarkable except as noted in HPI and below Exam Const: General: no acute distress Other: more comfortable today HENMT: Face/Nose/Sinus: Normal nares present Eyes: General: appearance normal, both eyes and all related structures Neck: Neck: supple Resp: Effort & Inspection: normal respiratory effort Cardio: Rate: regular rate GI: Inspection: incision (intact with glue) GI Palp: Yes Soft to palpation and Yes Tenderness to palpation present (GI) (epigastric and RUQ) Skin: General skin exam: normal color Neuro: Speech: normal speech Motor exam (neuro): 5/5 motor strength present throughout Extrem: General: normal to inspection Psych: Mental Status: mental status grossly normal Objective Data Vital Signs Vital Signs: Vital Signs - 24 hr 06/12/24 19:49 06/12/24 20:00 06/12/24 20:00 Temperature 98.6 F Pulse Rate 91 91 92 Respiratory Rate 16 16 Blood Pressure 102/57 L Pulse Oximetry 98 98 Oxygen Delivery Room Air 06/13/24 00:00 06/13/24 04:00 06/13/24 04:17 Temperature 97.8 F Pulse Rate 95 90 89 Respiratory Rate 20 Blood Pressure 80/50 L Pulse Oximetry 92 Oxygen Delivery 06/13/24 06:08 06/13/24 08:00 06/13/24 08:00 Temperature Pulse Rate 95 Respiratory Rate Blood Pressure 90/62 L Pulse Oximetry Oxygen Delivery Room Air 06/13/24 12:00 06/13/24 14:00 06/13/24 16:23 Temperature 97.6 F Pulse Rate 101 H 106 H 106 H Respiratory Rate 28 H Blood Pressure 100/58 L Pulse Oximetry 96 Oxygen Delivery Intake/Output Intake/Output: Intake & Output 06/10/24 06/11/24 06/12/24 06/13/24 23:59 23:59 23:59 23:59 Intake Total 3350 2400 2835 2996.7 Balance 3350 2400 2835 2996.7 Meds/Results Medications: Active Medications Generic Name Dose Route Start Last Admin Trade Name Freq PRN Reason Stop Dose Admin Acetaminophen 500 mg 06/09/24 18:49 06/10/24 10:14 Acetaminophen 500 Mg Tablet PO 500 mg Q6H PRN Administration Pain Rated 1-3 Hydrocodone Bitart/Acetaminophen 1 tab 06/09/24 18:49 Hydrocodone/Acetaminophen (*Crx) 5-325 Mg Tablet PO Q4H PRN Pain Rated 4-6 Hydrocodone Bitart/Acetaminophen 1 tab 06/09/24 18:49 06/12/24 19:59 Hydrocodone/Acetaminophen (*Crx) 7.5-325 Mg Tablet PO 1 tab Q4H PRN Administration Pain Rated 7-10 Diphenhydramine HCl 25 mg 06/09/24 18:49 06/12/24 21:08 Diphenhydramine Hcl Inj 50 Mg/Ml Vial IV PUSH 25 mg Q6H PRN Administration Itching Famotidine 20 mg 06/11/24 21:00 06/13/24 08:28 Famotidine 20 Mg/2 Ml Vial IV PUSH 20 mg Q12HR MALINA Administration Sodium Chloride 1,000 mls @ 125 mls/hr 06/08/24 16:25 06/13/24 13:26 Normal Saline Iv IV CONT 125 mls/hr .Q8H MALINA Administration Ibuprofen 800 mg in 200 mls @ 400 mls/hr 06/09/24 18:49 06/13/24 10:50 Caldolor 800 Mg/200 Ml IVPB Infused Q6H PRN Infusion Breakthrough Pain Rated 1-3 or NPO Morphine Sulfate 2 mg 06/09/24 18:49 06/13/24 13:20 Morphine Sulfate (*Crx) 2 Mg/Ml Inj IV PUSH 2 mg Q2H PRN Administration Breakthrough Pain Rated 4-6 or NPO Morphine Sulfate 4 mg 06/09/24 18:49 06/13/24 15:46 Morphine Sulfate (*Crx) 4 Mg/Ml Inj IV PUSH 4 mg Q2H PRN Administration Breakthrough Pain Rated 7-10 or NPO Naloxone HCl 0.1 mg 06/09/24 18:49 Naloxone Hcl 0.4 Mg/Ml Vial IV PUSH Q2M PRN Opiate Reversal Ondansetron HCl 4 mg 06/09/24 18:49 06/13/24 15:46 Ondansetron Inj 4 Mg/2 Ml Vial IV PUSH 4 mg Q4H PRN Administration Nausea And Vomiting Potassium Chloride 40 meq 06/13/24 11:00 06/13/24 11:13 Potassium Chloride 20 Meq Packet (For Liquid) PO 40 meq DAILY MALINA Administration Radiology Results: ITS Impressions Chest X-Ray 06/08/24 16:50 IMPRESSION: 1. No acute cardiopulmonary disease. Abdomen Ultrasound 06/08/24 17:38 IMPRESSION: 1. Gallbladder sludge without evident shadowing cholelithiasis over this might be due to the relatively tiny size of the few calcific stone seen on prior CT. 2. Normal proximal common bile duct measurement of 4-5 mm however the more distal duct which was dilated to [address] is obscured. If there is continued clinical concern for biliary obstruction would consider MRCP for further evaluation. MRCP 06/09/24 10:50 IMPRESSION: 1. Cholelithiasis with 3-4 mm stone in the cystic duct which has a low confluence with the distal common bile duct. No dilation of the gallbladder to suggest a significant obstruction or acute cholecystitis. 2. Mild pulmonary edema, trace bilateral pleural effusions and trace amount of perihepatic and perisplenic ascites. Cholangiogram,Operative 06/09/24 18:21 IMPRESSION: 1. 4 mm stone in the distal common bile duct. 2. Two 3 mm filling defects in the cystic duct which may be gas bubbles or stones. Endo Retro Cholangiopancreatogram 06/10/24 16:18 IMPRESSION: 1. Enlarged common duct. Please refer to the ERCP procedure note for additional details. Abdomen X-Ray 06/10/24 16:24 IMPRESSION: NO definite ACUTE ABDOMINAL FINDINGS. Contrast seen in the right side of the colon and in the gallbladder. Abdomen/Pelvis CT 06/12/24 13:23 Impression: Acute pancreatitis, with significant interval worsening of peripancreatic fluid and inflammatory change, with fluid extending into the right paracolic gutter and pelvis. No pancreatic necrosis or pseudocyst. 3.6 cm left ovarian cyst. [id number] right pleural effusion and small left pleural effusion. Labs Labs: Laboratory Results - last 24 hr 06/13/24 05:01 WBC 14.5 H RBC 4.14 L Hgb 12.8 Hct 38.3 MCV 92.5 MCH 30.9 MCHC 33.4 RDW 13.0 Plt Count 247 MPV 9.7 Sodium 135 L Potassium 3.3 L Chloride 108 H Carbon Dioxide 24 Anion Gap 3 L BUN 8 Creatinine 0.80 Estim Creat Clear Calc Not Reportable Estimated GFR > 60 Glucose 78 Calcium 7.8 L Total Bilirubin 1.9 H AST 22 ALT 79 H Alkaline Phosphatase 86 Total Protein 5.0 L Albumin 2.5 L
[2024-06-14] VITALS (14 sets, daily range): BP systolic 90–108; BP diastolic 53–61; PULSE 100–123; RESP 16–24; TEMP 36.5–36.9; O2SAT 92–99
[2024-06-14] MEDS: MORPHINE SULFATE (*CRX) 4 MG/ML INJ IV PUSH ×3 (02:33→16:38)
[2024-06-14] MEDS: ONDANSETRON INJ 4 MG/2 ML VIAL IV PUSH ×4 (02:34→22:47)
[2024-06-14] MEDS: SODIUM CHLORIDE 0.9% IV 1,000 ML 125 ML IV CONT (05:22)
[2024-06-14] MEDS: IBUPROFEN IV 800 MG/200 ML 800 MG/200 ML BAG 400 MG IVPB ×3 (05:22→20:21)
[2024-06-14 05:56] LABS: Hematocrit 36.2 % (37.0-47.0); Mean Corpuscular HGB Conc 33.1 g/dl (32-36); Mean Corpuscular Hemoglobin 31.2 pg (26-34); Mean Platelet Volume 9.8 fl (7.4-10.4); Platelet Count Result 252 k/mm3 (150-375); Red Blood Count 3.85 M/mm3 (4.2-5.4); White Blood Count 14.6 K/mm3 (4.5-10.0)
[2024-06-14 06:10] LABS: Anion Gap 6 mmol/L (4-12); Blood Urea Nitrogen 7 mg/dL (7-17); Calcium 7.9 mg/dL (8.4-10.2); Carbon Dioxide 21 mmol/L (22-30); Chloride 107 mmol/L (98-107); Estimated Glomerular Filt Rate > 60; Glucose 72 mg/dL (65-110); Potassium 3.5 mmol/L (3.4-5.0); Sodium 134 mmol/L (137-145)
[2024-06-14] MEDS: FAMOTIDINE 20 MG/2 ML VIAL IV PUSH ×2 (08:19→20:19)
[2024-06-14] MEDS: POTASSIUM CHLORIDE 20 MEQ PACKET (FOR LIQUID) 40 MEQ PO (09:00)
--- NOTE | 2024-06-14 09:52 | P.PNIM_ITS ---
Progress Note: A&P Assessment and Plan (1) Cholelithiasis: Qualifiers: Biliary obstruction: with biliary obstruction Cholecystitis presence: without cholecystitis Cholelithiasis location: gallbladder and bile duct Qualified Code(s): K80.71 - Calculus of gallbladder and bile duct without cholecystitis with obstruction Code(s): K80.20 - Calculus of gallbladder without cholecystitis without obstruction Status: Acute Assessment and Plan: - Elevated LFTs, downtrending - Abdomen/Pelvis CT 1. Cholelithiasis with mild dilation the common bile duct 8 mm in minimal central and hepatic biliary ductal dilation. No distal obstructing stone identified although could consider MRCP for more sensitive evaluation as clinically indicated. 2. 3.7 cm left adnexal cyst. - Abdomen Ultrasound 1. Gallbladder sludge without evident shadowing cholelithiasis over this might be due to the relatively tiny size of the few calcific stone seen on prior CT. 2. Normal proximal common bile duct measurement of 4-5 mm however the more distal duct which was dilated to [address] is obscured. - MRCP 1. Cholelithiasis with 3-4 mm stone in the cystic duct which has a low confluence with the distal common bile duct. No dilation of the gallbladder to suggest a significant obstruction or acute cholecystitis. 2. Mild pulmonary edema, trace bilateral pleural effusions and trace amount of perihepatic and perisplenic ascites. - IV pain management - Monitor vital signs, I and O's, check stool output, neuro status and patient is a fall risk - Monitor serum electrolytes and CBC - Consult GI for further evaluation, appreciate assistance and recommendation See MRCP result above - Consult surgery for further evaluation, appreciate assistance and recommendation - laparoscopic cholecystectomy with DR. Paulino-06/09 - continue supportive care 06/11- ercp yesterday with sphincterotomy, unfortunately after procedure with severe abdominal pain pancreatitis- per CT report 06/12-, IV fluids, Pain control surgery, GI following this am- low BP, rr higher still abd pain, WBC elevated- will repeat CT scan- ordered. 250 ml bolus 0.9 NS Pt is clinically better today 06/13- stable- GI advancing diet- monitor 06/14 slowly imporving (2) Transaminitis: Code(s): R74.01 - Elevation of levels of liver transaminase levels Status: Acute Assessment and Plan: LFTs on admission: Tot bili 2.4, AST 1378, ALT 812, Alk phos 161 Likely secondary to common bile duct and hepatic biliary ductal dilation as seen on imaging - LFTs on am labs: Tot bili 1.0, AST 482, ALT 558, Alk phos 125 - See cholelithiasis plan #1 - Monitor 06/12- labs are ordered-pending 06/13- improving labs monitor (3) Common bile duct dilatation: Code(s): K83.8 - Other specified diseases of biliary tract Status: Acute Assessment and Plan: see choledocholithiasis plan #1 (4) Bradycardia: Code(s): R00.1 - Bradycardia, unspecified Status: Acute Assessment and Plan: Sinus bradycardia with a heart rate in the 40-50s. No significant bradycardia, pauses, or bradyarrhythmias demonstrated on telemetry. Blood pressure is stable and she is asymptomatic. - Echo ordered - Apnea link ordered - Continue telemetry - Cardiology consulted At this point no other cardiac workup is being recommended VS reviewed- 45-78 range-continue to be asymptomatic received propofol during procedure- so could be some bradycardic episodes from that- monitor (5) Post-ERCP acute pancreatitis: Code(s): K91.89 - Other postprocedural complications and disorders of digestive system; K85.90 - Acute pancreatitis without necrosis or infection, unspecified Status: Acute Assessment and Plan: 06/11- ercp yesterday with sphincterotomy, unfortunately after procedure with severe abdominal pain pancreatitis- per st report iv fluids, pain control clinically better- gi will advance diet improving stop iv fluids (6) Pleural effusion: Code(s): J90 - Pleural effusion, not elsewhere classified Status: Acute Assessment and Plan: was present on CT on 06/10 06/12- repeated- persistent pt is not ambulating as much due to pain, even though she is using IS- would be prudent to start pneumonia coverage at this point will repeat chest xray today- ordered Time Spent With Patient Time with patient: Greater than 35 minutes Subjective Date/time seen: 06/14/24 09:52 Interval history: seen and examined. Doing ok- not able to ambulate much due to pain but tries. Encouraged to use IS. No n/v. repeated chest xray today Review of Systems Review of Systems: abd pain is better today. Gastrointestinal: Gastrointestinal: Reports abdominal pain Exam Narrative: General: female in no acute respiratory distress who is nontoxic appearing. HEENT: Normocephalic. Atraumatic. Extraocular movement intact. Sclera clear and anicteric. No facial asymmetry. Chest: Lungs are clear to auscultation bilaterally. No wheezes or crackles. CV: Heart was bradycardic with regular rhythm. S1-S2. No murmurs, gallops, or rubs. Abd: Abdomen tender. Nondistended. Positive bowel sounds. No organomegaly or masses. Ext: No clubbing, cyanosis, or edema. 2+ DP pulses bilaterally. Neuro: Patient is alert and oriented x4. Cranial nerves 2-12 are intact. Speech is clear. Const: General: comfortable Objective Data Vital Signs Vital Signs: Vital Signs - 24 hr 06/13/24 12:00 06/13/24 14:00 06/13/24 16:23 Temperature 97.6 F Pulse Rate 101 H 106 H 106 H Respiratory Rate 28 H Blood Pressure 100/58 L Pulse Oximetry 96 Oxygen Delivery 06/13/24 16:47 06/13/24 19:26 06/13/24 20:00 Temperature 97.6 F 98.3 F Pulse Rate 100 100 Respiratory Rate 16 16 Blood Pressure 93/52 L Pulse Oximetry 95 95 Oxygen Delivery Room Air 06/13/24 20:00 06/13/24 22:00 06/14/24 00:00 Temperature 98.3 F Pulse Rate 107 H 99 105 H Respiratory Rate 16 Blood Pressure 100/60 Pulse Oximetry 92 Oxygen Delivery 06/14/24 04:00 06/14/24 04:54 Temperature 98.4 F Pulse Rate 104 H 100 Respiratory Rate 16 Blood Pressure 90/53 L Pulse Oximetry 92 Oxygen Delivery Intake/Output Intake/Output: Intake & Output 06/11/24 06/12/24 06/13/24 06/14/24 23:59 23:59 23:59 23:59 Intake Total 2400 2835 4836.7 1508.8 Output Total 400 Balance 2400 2835 4436.7 1508.8 Meds/Results Medications: Active Medications Generic Name Dose Route Start Last Admin Trade Name Freq PRN Reason Stop Dose Admin Acetaminophen 500 mg 06/09/24 18:49 06/10/24 10:14 Acetaminophen 500 Mg Tablet PO 500 mg Q6H PRN Administration Pain Rated 1-3 Hydrocodone Bitart/Acetaminophen 1 tab 06/09/24 18:49 Hydrocodone/Acetaminophen (*Crx) 5-325 Mg Tablet PO Q4H PRN Pain Rated 4-6 Hydrocodone Bitart/Acetaminophen 1 tab 06/09/24 18:49 06/12/24 19:59 Hydrocodone/Acetaminophen (*Crx) 7.5-325 Mg Tablet PO 1 tab Q4H PRN Administration Pain Rated 7-10 Diphenhydramine HCl 25 mg 06/09/24 18:49 06/12/24 21:08 Diphenhydramine Hcl Inj 50 Mg/Ml Vial IV PUSH 25 mg Q6H PRN Administration Itching Famotidine 20 mg 06/11/24 21:00 06/14/24 08:19 Famotidine 20 Mg/2 Ml Vial IV PUSH 20 mg Q12HR MALINA Administration Sodium Chloride 1,000 mls @ 125 mls/hr 06/08/24 16:25 06/14/24 05:22 Normal Saline Iv IV CONT 125 mls/hr .Q8H MALINA Administration Ibuprofen 800 mg in 200 mls @ 400 mls/hr 06/09/24 18:49 06/14/24 05:52 Caldolor 800 Mg/200 Ml IVPB Infused Q6H PRN Infusion Breakthrough Pain Rated 1-3 or NPO Morphine Sulfate 2 mg 06/09/24 18:49 06/13/24 13:20 Morphine Sulfate (*Crx) 2 Mg/Ml Inj IV PUSH 2 mg Q2H PRN Administration Breakthrough Pain Rated 4-6 or NPO Morphine Sulfate 4 mg 06/09/24 18:49 06/14/24 08:20 Morphine Sulfate (*Crx) 4 Mg/Ml Inj IV PUSH 4 mg Q2H PRN Administration Breakthrough Pain Rated 7-10 or NPO Naloxone HCl 0.1 mg 06/09/24 18:49 Naloxone Hcl 0.4 Mg/Ml Vial IV PUSH Q2M PRN Opiate Reversal Ondansetron HCl 4 mg 06/09/24 18:49 06/14/24 08:20 Ondansetron Inj 4 Mg/2 Ml Vial IV PUSH 4 mg Q4H PRN Administration Nausea And Vomiting Potassium Chloride 40 meq 06/13/24 11:00 06/13/24 11:13 Potassium Chloride 20 Meq Packet (For Liquid) PO 40 meq DAILY MALINA Administration Radiology Results: ITS Impressions Chest X-Ray 06/08/24 16:50 IMPRESSION: 1. No acute cardiopulmonary disease. Abdomen Ultrasound 06/08/24 17:38 IMPRESSION: 1. Gallbladder sludge without evident shadowing cholelithiasis over this might be due to the relatively tiny size of the few calcific stone seen on prior CT. 2. Normal proximal common bile duct measurement of 4-5 mm however the more distal duct which was dilated to [address] is obscured. If there is continued clinical concern for biliary obstruction would consider MRCP for further evaluation. MRCP 06/09/24 10:50 IMPRESSION: 1. Cholelithiasis with 3-4 mm stone in the cystic duct which has a low confluence with the distal common bile duct. No dilation of the gallbladder to suggest a significant obstruction or acute cholecystitis. 2. Mild pulmonary edema, trace bilateral pleural effusions and trace amount of perihepatic and perisplenic ascites. Cholangiogram,Operative 06/09/24 18:21 IMPRESSION: 1. 4 mm stone in the distal common bile duct. 2. Two 3 mm filling defects in the cystic duct which may be gas bubbles or stones. Endo Retro Cholangiopancreatogram 06/10/24 16:18 IMPRESSION: 1. Enlarged common duct. Please refer to the ERCP procedure note for additional details. Abdomen X-Ray 06/10/24 16:24 IMPRESSION: NO definite ACUTE ABDOMINAL FINDINGS. Contrast seen in the right side of the colon and in the gallbladder. Abdomen/Pelvis CT 06/12/24 13:23 Impression: Acute pancreatitis, with significant interval worsening of peripancreatic fluid and inflammatory change, with fluid extending into the right paracolic gutter and pelvis. No pancreatic necrosis or pseudocyst. 3.6 cm left ovarian cyst. [id number] right pleural effusion and small left pleural effusion. Labs Labs: Laboratory Results - last 24 hr 06/14/24 05:12 WBC 14.6 H RBC 3.85 L Hgb 12.0 Hct 36.2 L MCV 94.0 MCH 31.2 MCHC 33.1 RDW 13.0 Plt Count 252 MPV 9.8 Sodium 134 L Potassium 3.5 Chloride 107 Carbon Dioxide 21 L Anion Gap 6 BUN 7 Creatinine 0.80 Estim Creat Clear Calc Not Reportable Estimated GFR > 60 Glucose 72 Calcium 7.9 L Quality VTE Prophylaxis VTE prophylaxis: mechanical ordered
[2024-06-14] MEDS: levoFLOXacin 750 MG TABLET PO (12:12)
--- NOTE | 2024-06-14 13:30 | WPDGIPROGNO ---
Progress Note: A&P Assessment and Plan (1) Post-ERCP acute pancreatitis: Code(s): K91.89 - Other postprocedural complications and disorders of digestive system; K85.90 - Acute pancreatitis without necrosis or infection, unspecified Status: Acute Assessment and Plan: advance diet today pain has improved, hgb stable 12 discontinue fluids- noted atelectasis, encourage to ambulate more (2) Elevated LFTs: Code(s): R79.89 - Other specified abnormal findings of blood chemistry Status: Acute Assessment and Plan: trending down after lap felicia despite now pancreatitis (3) Cholelithiasis: Qualifiers: Cholelithiasis location: gallbladder and bile duct Cholecystitis presence: without cholecystitis Biliary obstruction: with biliary obstruction Qualified Code(s): K80.71 - Calculus of gallbladder and bile duct without cholecystitis with obstruction Code(s): K80.20 - Calculus of gallbladder without cholecystitis without obstruction Status: Acute Assessment and Plan: s/p lap felicia (4) Acute epigastric pain: Code(s): R10.13 - Epigastric pain Status: Acute Assessment and Plan: now mostly from pancreatitis medical management, this is improving (5) Common bile duct dilatation: Code(s): K83.8 - Other specified diseases of biliary tract Status: Acute Assessment and Plan: s/p ercp Subjective Date/time seen: 06/14/24 13:30 Interval history: pain continues to improve and less sharp, earlier more shortness of breath but more comfortable now, CXR showed atelactasis Review of Systems Review of Systems: All systems reviewed & are unremarkable except as noted in HPI and below Exam Const: General: no acute distress Other: more comfortable today HENMT: Face/Nose/Sinus: Normal nares present Eyes: General: appearance normal, both eyes and all related structures Neck: Neck: supple Resp: Effort & Inspection: normal respiratory effort Auscultation: no crackles and diminished lung sounds Cardio: Rate: regular rate GI: Inspection: incision (intact with glue) GI Palp: Yes Soft to palpation and Yes Tenderness to palpation present (GI) (less tender today) Skin: General skin exam: normal color Neuro: Speech: normal speech Motor exam (neuro): 5/5 motor strength present throughout Extrem: General: normal to inspection Psych: Mental Status: mental status grossly normal Objective Data Vital Signs Vital Signs: Vital Signs - 24 hr 06/13/24 14:00 06/13/24 16:23 06/13/24 16:47 Temperature 97.6 F 97.6 F Pulse Rate 106 H 106 H Respiratory Rate 28 H Blood Pressure 100/58 L Pulse Oximetry 96 Oxygen Delivery 06/13/24 19:26 06/13/24 20:00 06/13/24 20:00 Temperature 98.3 F Pulse Rate 100 100 107 H Respiratory Rate 16 16 Blood Pressure 93/52 L Pulse Oximetry 95 95 Oxygen Delivery Room Air 06/13/24 22:00 06/14/24 00:00 06/14/24 04:00 Temperature 98.3 F Pulse Rate 99 105 H 104 H Respiratory Rate 16 Blood Pressure 100/60 Pulse Oximetry 92 Oxygen Delivery 06/14/24 04:54 06/14/24 08:00 06/14/24 08:00 Temperature 98.4 F Pulse Rate 100 106 H Respiratory Rate 16 Blood Pressure 90/53 L Pulse Oximetry 92 Oxygen Delivery Room Air Intake/Output Intake/Output: Intake & Output 06/11/24 06/12/24 06/13/24 06/14/24 23:59 23:59 23:59 23:59 Intake Total 2400 2835 4836.7 1508.8 Output Total 400 Balance 2400 2835 4436.7 1508.8 Meds/Results Medications: Active Medications Generic Name Dose Route Start Last Admin Trade Name Freq PRN Reason Stop Dose Admin Acetaminophen 500 mg 06/09/24 18:49 06/10/24 10:14 Acetaminophen 500 Mg Tablet PO 500 mg Q6H PRN Administration Pain Rated 1-3 Hydrocodone Bitart/Acetaminophen 1 tab 06/09/24 18:49 Hydrocodone/Acetaminophen (*Crx) 5-325 Mg Tablet PO Q4H PRN Pain Rated 4-6 Hydrocodone Bitart/Acetaminophen 1 tab 06/09/24 18:49 06/12/24 19:59 Hydrocodone/Acetaminophen (*Crx) 7.5-325 Mg Tablet PO 1 tab Q4H PRN Administration Pain Rated 7-10 Diphenhydramine HCl 25 mg 06/09/24 18:49 06/12/24 21:08 Diphenhydramine Hcl Inj 50 Mg/Ml Vial IV PUSH 25 mg Q6H PRN Administration Itching Famotidine 20 mg 06/11/24 21:00 06/14/24 08:19 Famotidine 20 Mg/2 Ml Vial IV PUSH 20 mg Q12HR MALINA Administration Ibuprofen 800 mg in 200 mls @ 400 mls/hr 06/09/24 18:49 06/14/24 12:13 Caldolor 800 Mg/200 Ml IVPB 400 mls/hr Q6H PRN Administration Breakthrough Pain Rated 1-3 or NPO Levofloxacin 750 mg 06/14/24 09:00 06/14/24 12:12 Levofloxacin 750 Mg Tablet PO 06/18/24 09:01 750 mg DAILY MALINA Administration Morphine Sulfate 2 mg 06/09/24 18:49 06/13/24 13:20 Morphine Sulfate (*Crx) 2 Mg/Ml Inj IV PUSH 2 mg Q2H PRN Administration Breakthrough Pain Rated 4-6 or NPO Morphine Sulfate 4 mg 06/09/24 18:49 06/14/24 08:20 Morphine Sulfate (*Crx) 4 Mg/Ml Inj IV PUSH 4 mg Q2H PRN Administration Breakthrough Pain Rated 7-10 or NPO Naloxone HCl 0.1 mg 06/09/24 18:49 Naloxone Hcl 0.4 Mg/Ml Vial IV PUSH Q2M PRN Opiate Reversal Ondansetron HCl 4 mg 06/09/24 18:49 06/14/24 08:20 Ondansetron Inj 4 Mg/2 Ml Vial IV PUSH 4 mg Q4H PRN Administration Nausea And Vomiting Potassium Chloride 40 meq 06/13/24 11:00 06/14/24 09:00 Potassium Chloride 20 Meq Packet (For Liquid) PO 40 meq DAILY MALINA Administration Radiology Results: ITS Impressions Abdomen Ultrasound 06/08/24 17:38 IMPRESSION: 1. Gallbladder sludge without evident shadowing cholelithiasis over this might be due to the relatively tiny size of the few calcific stone seen on prior CT. 2. Normal proximal common bile duct measurement of 4-5 mm however the more distal duct which was dilated to [address] is obscured. If there is continued clinical concern for biliary obstruction would consider MRCP for further evaluation. MRCP 06/09/24 10:50 IMPRESSION: 1. Cholelithiasis with 3-4 mm stone in the cystic duct which has a low confluence with the distal common bile duct. No dilation of the gallbladder to suggest a significant obstruction or acute cholecystitis. 2. Mild pulmonary edema, trace bilateral pleural effusions and trace amount of perihepatic and perisplenic ascites. Cholangiogram,Operative 06/09/24 18:21 IMPRESSION: 1. 4 mm stone in the distal common bile duct. 2. Two 3 mm filling defects in the cystic duct which may be gas bubbles or stones. Endo Retro Cholangiopancreatogram 06/10/24 16:18 IMPRESSION: 1. Enlarged common duct. Please refer to the ERCP procedure note for additional details. Abdomen X-Ray 06/10/24 16:24 IMPRESSION: NO definite ACUTE ABDOMINAL FINDINGS. Contrast seen in the right side of the colon and in the gallbladder. Abdomen/Pelvis CT 06/12/24 13:23 Impression: Acute pancreatitis, with significant interval worsening of peripancreatic fluid and inflammatory change, with fluid extending into the right paracolic gutter and pelvis. No pancreatic necrosis or pseudocyst. 3.6 cm left ovarian cyst. [id number] right pleural effusion and small left pleural effusion. Chest X-Ray 06/14/24 11:44 IMPRESSION: 1. Worsened airspace opacities in left lower lung zone, consistent with atelectasis versus pneumonia. 2. Small left pleural effusion. Labs Labs: Laboratory Results - last 24 hr 06/14/24 05:12 WBC 14.6 H RBC 3.85 L Hgb 12.0 Hct 36.2 L MCV 94.0 MCH 31.2 MCHC 33.1 RDW 13.0 Plt Count 252 MPV 9.8 Sodium 134 L Potassium 3.5 Chloride 107 Carbon Dioxide 21 L Anion Gap 6 BUN 7 Creatinine 0.80 Estim Creat Clear Calc Not Reportable Estimated GFR > 60 Glucose 72 Calcium 7.9 L
[2024-06-14] MEDS: HYDROcodone/acetaminophen (*CRX) 7.5-325 MG TABLET 1 TAB PO (14:29)
--- NOTE | 2024-06-14 20:55 | ECG_ITS ---
Test Date: 2024-06-14 21:07:16 Measurements Intervals [place] Rate: 124 P: 19 CA: 136 QRS: 13 QRSD: 82 T: -19 QT: 337 QTc: 484 Interpretive Statements SINUS TACHYCARDIA NONSPECIFIC ST & T-WAVE ABNORMALITY ABNORMAL RHYTHM ECG Compared to ECG 06/09/2024 13:30:21 T-wave abnormality now present Sinus bradycardia no longer present Electronically Signed On 06-16-2024 14:50:00 VISUALIZER by Bryant Yo M.D.
[2024-06-14] MEDS: LEVALBUTEROL NEB 1.25 MG/3 ML INHALATION (22:08)
[2024-06-14] MEDS: FUROSEMIDE INJ 40 MG/4 ML VIAL 10 MG IV PUSH (22:11)
[2024-06-14 22:21] LABS: SARS-CoV-2 RNA PCR Negative (Negative)
[2024-06-14] MEDS: MORPHINE SULFATE (*CRX) 2 MG/ML INJ IV PUSH (22:47)
[2024-06-14 23:38] LABS: Alveolar/Arterial O2 Gradient 109.4 mmHg; Base Excess ABG -5.6 mEq/l (+/-2.0); Fractional Inspired Oxygen 36 %; HCO3 ABG 18.4 mEq/l (22.0-26.0); Oxygen Content ABG 16.4 %vol (16.0-22.0); Oxyhemoglobin 98.1 % THb (90.0-100.0); PCO2 ABG 31.6 mmHg (35.0-45.0); PO2 ABG 110.6 mmHg (80.0-100.0); PO2 FiO2 Ratio Arterial Blood 3.07 %; Total Hemoglobin 11.8 g/dL (12.0-18.0); pH ABG 7.384 (7.350-7.450)
[2024-06-14] MEDS: LORazepam INJ (*CRX) 2 MG/ML VIAL 0.5 MG IV PUSH (23:38)
[2024-06-14 23:39] LABS: Device NASAL CANNULA; Modified Allen's Test Pass; Site Drawn RIGHT RADIAL
[2024-06-15] VITALS (13 sets, daily range): BP systolic 110–120; BP diastolic 67–70; PULSE 97–114; RESP 18; TEMP 36.6–37.4; O2SAT 97–100; BMI 33.5
[2024-06-15] MEDS: TRIMETHOBENZAMIDE HCL 200 MG/2 ML VIAL IM (00:44)
[2024-06-15 01:06] LABS: Hematocrit 34.4 % (37.0-47.0); Hemoglobin 11.5 g/dL (12.0-15.0); Mean Corpuscular HGB Conc 33.4 g/dl (32-36); Mean Corpuscular Hemoglobin 30.7 pg (26-34); Mean Platelet Volume 9.4 fl (7.4-10.4); Platelet Count Result 253 k/mm3 (150-375); Red Blood Count 3.74 M/mm3 (4.2-5.4); Red Cell Distribution Width 12.9 % (11.5-14.5); White Blood Count 12.9 K/mm3 (4.5-10.0)
[2024-06-15 01:10] LABS: Lactic Acid Reflex 2.6 mmol/L (0.7-2.0); Magnesium 1.8 mg/dL (1.6-2.3); Phosphorus 2.9 mg/dL (2.5-4.5)
[2024-06-15] MEDS: CEFEPIME 2 GM/NS 50 ML 2 GM/50 ML BAG IVPB ×2 (02:02→14:25)
[2024-06-15] MEDS: VANCOMYCIN 2,000 MG/NS 500 ML 2,000 MG/500 ML BAG 250 MG IVPB (02:28)
[2024-06-15 03:20] LABS: Hematocrit 32.2 % (37.0-47.0); Mean Corpuscular HGB Conc 34.2 g/dl (32-36); Mean Corpuscular Hemoglobin 31.1 pg (26-34); Mean Platelet Volume 9.7 fl (7.4-10.4); Platelet Count Result 250 k/mm3 (150-375); Red Blood Count 3.54 M/mm3 (4.2-5.4); White Blood Count 13.6 K/mm3 (4.5-10.0)
[2024-06-15 03:31] LABS: MRSA (PCR) NOT DETECTED (NOT DETECTE)
[2024-06-15 03:41] LABS: Anion Gap 6 mmol/L (4-12); Blood Urea Nitrogen 5 mg/dL (7-17); Carbon Dioxide 20 mmol/L (22-30); Chloride 106 mmol/L (98-107); Estimated Glomerular Filt Rate > 60; Glucose 103 mg/dL (65-110); Sodium 132 mmol/L (137-145)
[2024-06-15 03:54] LABS: Reflex Lactic Acid Yes or No Add Lactic
[2024-06-15] MEDS: MORPHINE SULFATE (*CRX) 2 MG/ML INJ IV PUSH (04:41)
[2024-06-15 05:07] LABS: Lactic Acid 1.1 mmol/L (0.7-2.0)
--- NOTE | 2024-06-15 07:17 | P.PNIM_ITS ---
Progress Note: A&P Assessment and Plan (1) Cholelithiasis: Qualifiers: Biliary obstruction: with biliary obstruction Cholecystitis presence: without cholecystitis Cholelithiasis location: gallbladder and bile duct Qualified Code(s): K80.71 - Calculus of gallbladder and bile duct without cholecystitis with obstruction Code(s): K80.20 - Calculus of gallbladder without cholecystitis without obstruction Status: Acute Assessment and Plan: - Elevated LFTs, downtrending - Abdomen/Pelvis CT 1. Cholelithiasis with mild dilation the common bile duct 8 mm in minimal central and hepatic biliary ductal dilation. No distal obstructing stone identified although could consider MRCP for more sensitive evaluation as clinically indicated. 2. 3.7 cm left adnexal cyst. - Abdomen Ultrasound 1. Gallbladder sludge without evident shadowing cholelithiasis over this might be due to the relatively tiny size of the few calcific stone seen on prior CT. 2. Normal proximal common bile duct measurement of 4-5 mm however the more distal duct which was dilated to [address] is obscured. - MRCP 1. Cholelithiasis with 3-4 mm stone in the cystic duct which has a low confluence with the distal common bile duct. No dilation of the gallbladder to suggest a significant obstruction or acute cholecystitis. 2. Mild pulmonary edema, trace bilateral pleural effusions and trace amount of perihepatic and perisplenic ascites. - IV pain management - Monitor vital signs, I and O's, check stool output, neuro status and patient is a fall risk - Monitor serum electrolytes and CBC - Consult GI for further evaluation, appreciate assistance and recommendation See MRCP result above - Consult surgery for further evaluation, appreciate assistance and recommendation - laparoscopic cholecystectomy with DR. Paulino-06/09 - continue supportive care 06/11- ercp yesterday with sphincterotomy, unfortunately after procedure with severe abdominal pain pancreatitis- per CT report 06/12-, IV fluids, Pain control surgery, GI following this am- low BP, rr higher still abd pain, WBC elevated- will repeat CT scan- ordered. 250 ml bolus 0.9 NS Pt is clinically better today 06/13- stable- GI advancing diet- monitor 06/14 slowly imporving (2) Transaminitis: Code(s): R74.01 - Elevation of levels of liver transaminase levels Status: Acute Assessment and Plan: LFTs on admission: Tot bili 2.4, AST 1378, ALT 812, Alk phos 161 Likely secondary to common bile duct and hepatic biliary ductal dilation as seen on imaging - LFTs on am labs: Tot bili 1.0, AST 482, ALT 558, Alk phos 125 - See cholelithiasis plan #1 - Monitor 06/12- labs are ordered-pending 06/13- improving labs monitor (3) Common bile duct dilatation: Code(s): K83.8 - Other specified diseases of biliary tract Status: Acute Assessment and Plan: see choledocholithiasis plan #1 (4) Bradycardia: Code(s): R00.1 - Bradycardia, unspecified Status: Acute Assessment and Plan: Sinus bradycardia with a heart rate in the 40-50s. No significant bradycardia, pauses, or bradyarrhythmias demonstrated on telemetry. Blood pressure is stable and she is asymptomatic. - Echo ordered - Apnea link ordered - Continue telemetry - Cardiology consulted At this point no other cardiac workup is being recommended VS reviewed- 45-78 range-continue to be asymptomatic received propofol during procedure- so could be some bradycardic episodes from that- monitor (5) Post-ERCP acute pancreatitis: Code(s): K91.89 - Other postprocedural complications and disorders of digestive system; K85.90 - Acute pancreatitis without necrosis or infection, unspecified Status: Acute Assessment and Plan: 06/11- ercp yesterday with sphincterotomy, unfortunately after procedure with severe abdominal pain pancreatitis- per st report iv fluids, pain control clinically better- gi will advance diet improving 06/15- was on clear liquids- but was advanced to full and became more nauseated so back to clears -monitor (6) Pleural effusion: Code(s): J90 - Pleural effusion, not elsewhere classified Status: Acute Assessment and Plan: was present on CT on 06/10 06/12- repeated- persistent pt is not ambulating as much due to pain, even though she is using IS- would be prudent to start pneumonia coverage at this point will repeat chest xray today- ordered 06.15- wbc continues to improve. encourage ambulation-IS. Pulm was consulted. (7) Hypokalemia: Code(s): E87.6 - Hypokalemia Status: Acute Assessment and Plan: intake related will replace IV and since intake (8) Hyponatremia: Code(s): E87.1 - Hypo-osmolality and hyponatremia Status: Acute Assessment and Plan: diet related very likely will monitor for now- add diet.supplements if needed Time Spent With Patient Time with patient: Greater than 35 minutes Subjective Date/time seen: 06/15/24 07:17 Interval history: 43-year-old female admitted for evaluation of epigastric pain. Ercp with sphincterotomy 06/10, post procedural pancreatitis. Her pain had been an issue but is is slowly improving. was concerned that she was confused as she was testing weird stuff but when i examined her, she was alert and oriented. Review of Systems Review of Systems: abd pain is better today. Gastrointestinal: Gastrointestinal: Reports abdominal pain Exam Narrative: General: female in no acute respiratory distress who is nontoxic appearing. HEENT: Normocephalic. Atraumatic. Extraocular movement intact. Sclera clear and anicteric. No facial asymmetry. Chest: Lungs are clear to auscultation bilaterally. No wheezes or crackles. CV: Heart was bradycardic with regular rhythm. S1-S2. No murmurs, gallops, or rubs. Abd: Abdomen tender. Nondistended. Positive bowel sounds. No organomegaly or masses. Ext: No clubbing, cyanosis, or edema. 2+ DP pulses bilaterally. Neuro: Patient is alert and oriented x4. Cranial nerves 2-12 are intact. Speech is clear. Const: General: comfortable Objective Data Vital Signs Vital Signs: Vital Signs - 24 hr 06/14/24 08:00 06/14/24 08:00 06/14/24 12:00 Temperature Pulse Rate 106 H 102 H Respiratory Rate Blood Pressure Pulse Oximetry Oxygen Delivery Room Air Oxygen Flow Rate 06/14/24 14:00 06/14/24 20:33 06/14/24 20:49 Temperature 98.3 F 98.3 F Pulse Rate 109 H 123 H 123 H Respiratory Rate 20 22 H 22 H Blood Pressure 96/61 L 103/59 L Pulse Oximetry 94 93 93 Oxygen Delivery Room Air Room Air Oxygen Flow Rate 06/14/24 21:08 06/14/24 21:32 06/14/24 21:50 Temperature 98.3 F Pulse Rate 123 H Respiratory Rate 22 H 22 H Blood Pressure 103/59 L Pulse Oximetry 92 95 95 Oxygen Delivery Nasal Cannula Nasal Cannula Oxygen Flow Rate 2 4 06/14/24 22:09 06/14/24 22:12 06/14/24 22:15 Temperature Pulse Rate 121 H 120 H 122 H Respiratory Rate 22 H 24 H Blood Pressure Pulse Oximetry 99 Oxygen Delivery Nasal Cannula Oxygen Flow Rate 4 06/14/24 22:15 06/15/24 00:00 06/15/24 00:22 Temperature 97.7 F 97.9 F Pulse Rate 123 H 113 H 108 H Respiratory Rate 18 18 Blood Pressure 108/61 110/67 Pulse Oximetry 94 100 Oxygen Delivery Oxygen Flow Rate 06/15/24 04:00 06/15/24 05:52 Temperature Pulse Rate 97 Respiratory Rate 18 Blood Pressure Pulse Oximetry Oxygen Delivery Oxygen Flow Rate Intake/Output Intake/Output: Intake & Output 06/12/24 06/13/24 06/14/24 06/15/24 23:59 23:59 23:59 23:59 Intake Total 2835 4836.7 2228.8 250 Output Total 400 900 Balance 2835 4436.7 2228.8 -650 Meds/Results Medications: Active Medications Generic Name Dose Route Start Last Admin Trade Name Freq PRN Reason Stop Dose Admin Acetaminophen 500 mg 06/09/24 18:49 06/10/24 10:14 Acetaminophen 500 Mg Tablet PO 500 mg Q6H PRN Administration Pain Rated 1-3 Hydrocodone Bitart/Acetaminophen 1 tab 06/09/24 18:49 Hydrocodone/Acetaminophen (*Crx) 5-325 Mg Tablet PO Q4H PRN Pain Rated 4-6 Hydrocodone Bitart/Acetaminophen 1 tab 06/09/24 18:49 06/14/24 14:29 Hydrocodone/Acetaminophen (*Crx) 7.5-325 Mg Tablet PO 1 tab Q4H PRN Administration Pain Rated 7-10 Diphenhydramine HCl 25 mg 06/09/24 18:49 06/12/24 21:08 Diphenhydramine Hcl Inj 50 Mg/Ml Vial IV PUSH 25 mg Q6H PRN Administration Itching Famotidine 20 mg 06/11/24 21:00 06/14/24 20:19 Famotidine 20 Mg/2 Ml Vial IV PUSH 20 mg Q12HR MALINA Administration Ibuprofen 800 mg in 200 mls @ 400 mls/hr 06/09/24 18:49 06/14/24 20:51 Caldolor 800 Mg/200 Ml IVPB Infused Q6H PRN Infusion Breakthrough Pain Rated 1-3 or NPO Cefepime HCl 2 gm in 50 mls @ 100 mls/hr 06/15/24 01:00 06/15/24 02:29 Maxipime 2 Gm/Ns 50 Ml IVPB Infused Q12H MALINA Infusion Vancomycin HCl 1,500 mg in 500 mls @ 250 mls/hr 06/15/24 20:00 Vancomycin 1,500 Mg/Ns 500 Ml IVPB Q18H MALINA Levofloxacin 750 mg 06/14/24 09:00 06/14/24 12:12 Levofloxacin 750 Mg Tablet PO 06/18/24 09:01 750 mg DAILY MALINA Administration Morphine Sulfate 2 mg 06/09/24 18:49 06/15/24 04:41 Morphine Sulfate (*Crx) 2 Mg/Ml Inj IV PUSH 2 mg Q2H PRN Administration Breakthrough Pain Rated 4-6 or NPO Morphine Sulfate 4 mg 06/09/24 18:49 06/14/24 16:38 Morphine Sulfate (*Crx) 4 Mg/Ml Inj IV PUSH 4 mg Q2H PRN Administration Breakthrough Pain Rated 7-10 or NPO Naloxone HCl 0.1 mg 06/09/24 18:49 Naloxone Hcl 0.4 Mg/Ml Vial IV PUSH Q2M PRN Opiate Reversal Ondansetron HCl 4 mg 06/09/24 18:49 06/14/24 22:47 Ondansetron Inj 4 Mg/2 Ml Vial IV PUSH 4 mg Q4H PRN Administration Nausea And Vomiting Potassium Chloride 40 meq 06/13/24 11:00 06/14/24 09:00 Potassium Chloride 20 Meq Packet (For Liquid) PO 40 meq DAILY MALINA Administration Radiology Results: ITS Impressions Abdomen Ultrasound 06/08/24 17:38 IMPRESSION: 1. Gallbladder sludge without evident shadowing cholelithiasis over this might be due to the relatively tiny size of the few calcific stone seen on prior CT. 2. Normal proximal common bile duct measurement of 4-5 mm however the more distal duct which was dilated to [address] is obscured. If there is continued clinical concern for biliary obstruction would consider MRCP for further evaluation. MRCP 06/09/24 10:50 IMPRESSION: 1. Cholelithiasis with 3-4 mm stone in the cystic duct which has a low confluence with the distal common bile duct. No dilation of the gallbladder to suggest a significant obstruction or acute cholecystitis. 2. Mild pulmonary edema, trace bilateral pleural effusions and trace amount of perihepatic and perisplenic ascites. Cholangiogram,Operative 06/09/24 18:21 IMPRESSION: 1. 4 mm stone in the distal common bile duct. 2. Two 3 mm filling defects in the cystic duct which may be gas bubbles or stones. Endo Retro Cholangiopancreatogram 06/10/24 16:18 IMPRESSION: 1. Enlarged common duct. Please refer to the ERCP procedure note for additional details. Abdomen/Pelvis CT 06/12/24 13:23 Impression: Acute pancreatitis, with significant interval worsening of peripancreatic fluid and inflammatory change, with fluid extending into the right paracolic gutter and pelvis. No pancreatic necrosis or pseudocyst. 3.6 cm left ovarian cyst. [id number] right pleural effusion and small left pleural effusion. Chest X-Ray 06/14/24 21:50 IMPRESSION: Scattered bilateral patchy pulmonary infiltrates, most prominent in the lower lobes, increased since earlier today, suggesting worsening bilateral pneumonia Abdomen X-Ray 06/15/24 05:43 IMPRESSION: 1. Nonobstructive bowel gas pattern. Chest CTA 06/15/24 06:41 IMPRESSION: 1. No pulmonary embolus. 2. Small pleural effusions. 3. Acute interstitial pancreatitis. Labs Labs: Laboratory Results - last 24 hr 06/14/24 06/14/24 06/15/24 21:40 23:30 00:48 WBC 12.9 H RBC 3.74 L Hgb 11.5 L Hct 34.4 L MCV 92.0 MCH 30.7 MCHC 33.4 RDW 12.9 Plt Count 253 MPV 9.4 Puncture Site Right radial ABG pH 7.384 ABG pCO2 31.6 L ABG pO2 110.6 H ABG PO2/FiO2 Ratio 3.07 ABG HCO3 18.4 L ABG O2 Saturation 98.0 ABG O2 Content 16.4 ABG Base Excess -5.6 A-a Gradient 109.4 Oxyhemoglobin 98.1 Total Hemoglobin 11.8 L O2 Delivery Device Nasal cannula O2 Liters/Min 4.0 FiO2 36 Sodium Potassium Chloride Carbon Dioxide Anion Gap BUN Creatinine Estim Creat Clear Calc Estimated GFR Glucose Lactic Acid 2.6 H Calcium Phosphorus 2.9 Magnesium 1.8 Nasal MRSA (PCR) SARS-CoV-2 RNA (RT-PCR) Negative 06/15/24 06/15/24 06/15/24 02:05 02:09 04:24 WBC 13.6 H RBC 3.54 L Hgb 11.0 L Hct 32.2 L MCV 91.0 MCH 31.1 MCHC 34.2 RDW 13.0 Plt Count 250 MPV 9.7 Puncture Site ABG pH ABG pCO2 ABG pO2 ABG PO2/FiO2 Ratio ABG HCO3 ABG O2 Saturation ABG O2 Content ABG Base Excess A-a Gradient Oxyhemoglobin Total Hemoglobin O2 Delivery Device O2 Liters/Min FiO2 Sodium 132 L Potassium 3.0 L Chloride 106 Carbon Dioxide 20 L Anion Gap 6 BUN 5 L Creatinine 0.70 Estim Creat Clear Calc Not Reportable Estimated GFR > 60 Glucose 103 Lactic Acid 1.1 Calcium 8.0 L Phosphorus Magnesium Nasal MRSA (PCR) Not detected SARS-CoV-2 RNA (RT-PCR) Quality VTE Prophylaxis VTE prophylaxis: mechanical ordered
[2024-06-15] MEDS: HYDROcodone/acetaminophen (*CRX) 5-325 MG TABLET 1 TAB PO ×2 (08:47→14:30)
[2024-06-15] MEDS: levoFLOXacin 750 MG TABLET PO (08:48)
[2024-06-15] MEDS: FAMOTIDINE 20 MG/2 ML VIAL IV PUSH ×2 (08:48→20:55)
[2024-06-15] MEDS: POTASSIUM CHLORIDE 20 MEQ PACKET (FOR LIQUID) 40 MEQ PO (08:49)
[2024-06-15] MEDS: POTASSIUM CHLORIDE INJ 40 MEQ in SODIUM CHLORIDE 0.9% IV 500 ML 130 MEQ IVPB (08:51)
--- NOTE | 2024-06-15 11:43 | P.CONPL_ITS ---
Assessment and Plan Assessment and plan (1) Atelectasis: Code(s): J98.11 - Atelectasis Status: Acute History of Present Illness History of Present Illness Consult date: 06/15/24 Requesting physician: Daxa Cooley APRN Chief complaint: Increased O2 need, atelectasis, pleural effusions Narrative: Patient was seen June 15, 11:45 am, room 247 NEW: Rhonda Devlin is a 43-year-old female with a pleural effusion with shortness of breath and increased oxygen requirements, had a CTA this morning Jun 15. She has cholelithiasis and elevated liver enzymes. 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 She required higher O2 levels last night, 4 L/min, now decreased to 2 L/min. She has been hallucinating, saw large writing on the ellis, and a black cat that she knows is not there. Her boyfriend talked with her, realized that she was not making sense. DATA * 06/15/24 CTA; : There is mild atelectasis in the lungs. There are small pleural effusions. The heart size is normal. No pericardial effusion. There is no pulmonary embolus. There is fat stranding and fluid around the pancreas, consistent with pancreatitis. There are changes of cholecystectomy. Body wall edema is noted. There is mild thoracic spondylosis. IMPRESSION: 1. No pulmonary embolus. 2. Small pleural effusions. 3. Acute interstitial pancreatitis. Review of Systems 2 Review of Systems: All systems reviewed & are unremarkable except as noted in HPI and below PMFSH Past Medical History Medical History (Updated 06/15/24 @ 17:05 by Sara Galvan MD) Post-ERCP acute pancreatitis Minimal change disease Nephrotic syndrome Proteinuria Surgical History Surgical History History of biopsy of kidney Social History Social History Social History: Surrogate medical decision maker: Lobito Devlin, spouse. Code status: Full code. Smoking status: Never smoker Alcohol intake: current Drinks per week: 1 Substance use: never Do You Feel Safe in your Home?: Yes Lack of Transportation: No Lack of Food: Never True Current Housing: I Have Housing Concerned About Future Housing: No Difficulty Paying Gas/Electric Bills: No Difficulty Paying for Meds: No Currently Unemployed: No Education: Associate Degree Difficulty w/ Childcare or Family Care: No Spiritual care concerns: No Meds Home Medications and Allergies Home Medications ?Medication ?Instructions ?Recorded ?Confirmed ?Type No Home Medications 08/06/22 06/08/24 History Allergies Allergy/AdvReac Type Severity Reaction Status Date / Time ampicillin Allergy Severe Rash Verified 06/10/24 13:57 Vital Signs Vital Signs - 24 hr 06/14/24 12:00 06/14/24 14:00 06/14/24 20:33 Temperature 36.8 C Pulse Rate 102 H 109 H 123 H Respiratory Rate 20 22 H Blood Pressure 96/61 L Pulse Oximetry 94 93 Oxygen Delivery Room Air Oxygen Flow Rate Fraction of Inspired Oxygen 06/14/24 20:49 06/14/24 21:08 06/14/24 21:32 Temperature 36.8 C 36.8 C Pulse Rate 123 H 123 H Respiratory Rate 22 H 22 H Blood Pressure 103/59 L 103/59 L Pulse Oximetry 93 92 95 Oxygen Delivery Room Air Nasal Cannula Oxygen Flow Rate 2 Fraction of Inspired Oxygen 06/14/24 21:50 06/14/24 22:09 06/14/24 22:12 Temperature Pulse Rate 121 H 120 H Respiratory Rate 22 H 22 H Blood Pressure Pulse Oximetry 95 99 Oxygen Delivery Nasal Cannula Nasal Cannula Oxygen Flow Rate 4 4 Fraction of Inspired Oxygen 06/14/24 22:15 06/14/24 22:15 06/15/24 00:00 Temperature 36.5 C Pulse Rate 122 H 123 H 113 H Respiratory Rate 24 H 18 Blood Pressure 108/61 Pulse Oximetry 94 Oxygen Delivery Oxygen Flow Rate Fraction of Inspired Oxygen 06/15/24 00:22 06/15/24 04:00 06/15/24 05:52 Temperature 36.6 C Pulse Rate 108 H 97 Respiratory Rate 18 18 Blood Pressure 110/67 Pulse Oximetry 100 Oxygen Delivery Oxygen Flow Rate Fraction of Inspired Oxygen 06/15/24 08:00 06/15/24 08:50 06/15/24 09:11 Temperature Pulse Rate 103 H Respiratory Rate Blood Pressure Pulse Oximetry 99 99 Oxygen Delivery Nasal Cannula Nasal Cannula Oxygen Flow Rate 2 4 Fraction of Inspired Oxygen 36 06/15/24 10:00 Temperature Pulse Rate Respiratory Rate Blood Pressure Pulse Oximetry 99 Oxygen Delivery Nasal Cannula Oxygen Flow Rate 2 Fraction of Inspired Oxygen 28 Exam 2 Narrative: GEN: Alert, oriented per person, place, date with some prompting; She is taking shallow breaths, has abdominal pain. HEENT: pupils are equal, EOMI, symmetrical face; oral membranes dry, Mallampati II airway NECK: Trachea is midline CHEST: Equal air entry, symmetric excursion, decreased breath sounds in bases, no wheezes CV: Regular S1S2 no m/g/r ABD : rare bowel sounds, Extremities : no clubbing, cyanosis, or edema PSYCH: speech is a bit slow, gait is not tested, Results Laboratory Findings 06/15/24 02:09 06/15/24 02:09 ABG, PT/INR, D-dimer: ABG ABG pH 7.384 (7.350-7.450) 06/14/24 23:30 ABG pCO2 31.6 mmHg (35.0-45.0) L 06/14/24 23:30 ABG pO2 110.6 mmHg (80.0-100.0) H 06/14/24 23:30 ABG O2 Saturation 98.0 % (95.0-100.0) 06/14/24 23:30 PT/INR, D-dimer PT 13.6 Seconds (11.1-14.7) 06/08/24 13:28 INR 1.0 06/08/24 13:28 Abnormal lab findings: Abnormal Labs 06/08/24 06/09/24 06/10/24 13:28 04:46 05:17 WBC RBC 3.92 L 4.08 L Hgb 15.4 H Hct 35.8 L 36.6 L Neut % (Auto) 75.1 H ABG pCO2 ABG pO2 ABG HCO3 Total Hemoglobin Sodium 136 L Potassium Chloride 110 H Carbon Dioxide Anion Gap 3 L BUN Glucose 129 H Lactic Acid Calcium 8.1 L Total Bilirubin 2.4 H AST 1378 H 482 H 183 H ALT 812 H 558 H 375 H Alkaline Phosphatase 161 H 129 H Total Protein 6.0 L 6.0 L Albumin 3.3 L Lipase 06/11/24 06/12/24 06/13/24 05:38 08:03 05:01 WBC 16.5 H 17.8 H 14.5 H RBC 4.14 L Hgb 15.2 H Hct Neut % (Auto) ABG pCO2 ABG pO2 ABG HCO3 Total Hemoglobin Sodium 135 L 135 L 135 L Potassium 3.3 L Chloride 108 H Carbon Dioxide Anion Gap 3 L BUN Glucose Lactic Acid Calcium 8.3 L 7.9 L 7.8 L Total Bilirubin 1.9 H AST 71 H ALT 253 H 79 H Alkaline Phosphatase Total Protein 5.0 L Albumin 2.5 L Lipase 3852 H 06/14/24 06/14/24 06/15/24 05:12 23:30 00:48 WBC 14.6 H 12.9 H RBC 3.85 L 3.74 L Hgb 11.5 L Hct 36.2 L 34.4 L Neut % (Auto) ABG pCO2 31.6 L ABG pO2 110.6 H ABG HCO3 18.4 L Total Hemoglobin 11.8 L Sodium 134 L Potassium Chloride Carbon Dioxide 21 L Anion Gap BUN Glucose Lactic Acid 2.6 H Calcium 7.9 L Total Bilirubin AST ALT Alkaline Phosphatase Total Protein Albumin Lipase 06/15/24 02:09 WBC 13.6 H RBC 3.54 L Hgb 11.0 L Hct 32.2 L Neut % (Auto) ABG pCO2 ABG pO2 ABG HCO3 Total Hemoglobin Sodium 132 L Potassium 3.0 L Chloride Carbon Dioxide 20 L Anion Gap BUN 5 L Glucose Lactic Acid Calcium 8.0 L Total Bilirubin AST ALT Alkaline Phosphatase Total Protein Albumin Lipase
[2024-06-15 12:31] LABS: Alanine Aminotransferase 37 U/L (6-35); Ammonia < 9 umol/L (9-30); Aspartate Amino Transferase 19 U/L (14-36)
--- NOTE | 2024-06-15 14:15 | WPDGIPROGNO ---
Progress Note: A&P Assessment and Plan (1) Post-ERCP acute pancreatitis: Code(s): K91.89 - Other postprocedural complications and disorders of digestive system; K85.90 - Acute pancreatitis without necrosis or infection, unspecified Status: Acute Assessment and Plan: liquid diet, CT chest reviewed, no PE, similar pancreatitis, lft trending down pain is similar, denies nausea but poor appetite (2) Elevated LFTs: Code(s): R79.89 - Other specified abnormal findings of blood chemistry Status: Acute Assessment and Plan: repeat lft better (3) Cholelithiasis: Qualifiers: Cholelithiasis location: gallbladder and bile duct Cholecystitis presence: without cholecystitis Biliary obstruction: with biliary obstruction Qualified Code(s): K80.71 - Calculus of gallbladder and bile duct without cholecystitis with obstruction Code(s): K80.20 - Calculus of gallbladder without cholecystitis without obstruction Status: Acute Assessment and Plan: s/p lap felicia (4) Acute epigastric pain: Code(s): R10.13 - Epigastric pain Status: Acute Assessment and Plan: mostly from pancreatitis medical management IVF discontinued- had more SOB (5) Common bile duct dilatation: Code(s): K83.8 - Other specified diseases of biliary tract Status: Acute Assessment and Plan: s/p ercp Subjective Date/time seen: 06/15/24 14:15 Interval history: yesterday with more shortness of breath, CTA no PE, still pancreatitis no nausea but still poor appetite, abdominal pain similar and prefer only to have liquid diet for now Review of Systems Review of Systems: All systems reviewed & are unremarkable except as noted in HPI and below Exam Const: General: no acute distress HENMT: Face/Nose/Sinus: Normal nares present Eyes: General: appearance normal, both eyes and all related structures Neck: Neck: supple Resp: Effort & Inspection: normal respiratory effort Auscultation: no crackles and diminished lung sounds Cardio: Rate: regular rate GI: Inspection: incision (intact with glue) GI Palp: Yes Soft to palpation and Yes Tenderness to palpation present (GI) (less tender today) Skin: General skin exam: normal color Neuro: Speech: normal speech Motor exam (neuro): 5/5 motor strength present throughout Extrem: General: normal to inspection Psych: Mental Status: mental status grossly normal Objective Data Vital Signs Vital Signs: Vital Signs - 24 hr 06/14/24 20:33 06/14/24 20:49 06/14/24 21:08 Temperature 98.3 F 98.3 F Pulse Rate 123 H 123 H 123 H Respiratory Rate 22 H 22 H 22 H Blood Pressure 103/59 L 103/59 L Pulse Oximetry 93 93 92 Oxygen Delivery Room Air Room Air Oxygen Flow Rate Fraction of Inspired Oxygen 06/14/24 21:32 06/14/24 21:50 06/14/24 22:09 Temperature Pulse Rate 121 H Respiratory Rate 22 H 22 H Blood Pressure Pulse Oximetry 95 95 Oxygen Delivery Nasal Cannula Nasal Cannula Oxygen Flow Rate 2 4 Fraction of Inspired Oxygen 06/14/24 22:12 06/14/24 22:15 06/14/24 22:15 Temperature 97.7 F Pulse Rate 120 H 122 H 123 H Respiratory Rate 24 H 18 Blood Pressure 108/61 Pulse Oximetry 99 94 Oxygen Delivery Nasal Cannula Oxygen Flow Rate 4 Fraction of Inspired Oxygen 06/15/24 00:00 06/15/24 00:22 06/15/24 04:00 Temperature 97.9 F Pulse Rate 113 H 108 H 97 Respiratory Rate 18 Blood Pressure 110/67 Pulse Oximetry 100 Oxygen Delivery Oxygen Flow Rate Fraction of Inspired Oxygen 06/15/24 05:52 06/15/24 08:00 06/15/24 08:50 Temperature Pulse Rate 103 H Respiratory Rate 18 Blood Pressure Pulse Oximetry 99 Oxygen Delivery Nasal Cannula Oxygen Flow Rate 2 Fraction of Inspired Oxygen 06/15/24 09:11 06/15/24 10:00 Temperature Pulse Rate Respiratory Rate Blood Pressure Pulse Oximetry 99 99 Oxygen Delivery Nasal Cannula Nasal Cannula Oxygen Flow Rate 4 2 Fraction of Inspired Oxygen 36 28 Intake/Output Intake/Output: Intake & Output 06/12/24 06/13/24 06/14/24 06/15/24 23:59 23:59 23:59 23:59 Intake Total 2835 4836.7 2228.8 250 Output Total 400 1500 Balance 2835 4436.7 2228.8 -1250 Meds/Results Medications: Active Medications Generic Name Dose Route Start Last Admin Trade Name Freq PRN Reason Stop Dose Admin Acetaminophen 500 mg 06/09/24 18:49 06/10/24 10:14 Acetaminophen 500 Mg Tablet PO 500 mg Q6H PRN Administration Pain Rated 1-3 Hydrocodone Bitart/Acetaminophen 1 tab 06/09/24 18:49 06/15/24 08:47 Hydrocodone/Acetaminophen (*Crx) 5-325 Mg Tablet PO 1 tab Q4H PRN Administration Pain Rated 4-6 Hydrocodone Bitart/Acetaminophen 1 tab 06/09/24 18:49 06/14/24 14:29 Hydrocodone/Acetaminophen (*Crx) 7.5-325 Mg Tablet PO 1 tab Q4H PRN Administration Pain Rated 7-10 Diphenhydramine HCl 25 mg 06/09/24 18:49 06/12/24 21:08 Diphenhydramine Hcl Inj 50 Mg/Ml Vial IV PUSH 25 mg Q6H PRN Administration Itching Famotidine 20 mg 06/11/24 21:00 06/15/24 08:48 Famotidine 20 Mg/2 Ml Vial IV PUSH 20 mg Q12HR MALINA Administration Ibuprofen 800 mg in 200 mls @ 400 mls/hr 06/09/24 18:49 06/14/24 20:51 Caldolor 800 Mg/200 Ml IVPB Infused Q6H PRN Infusion Breakthrough Pain Rated 1-3 or NPO Cefepime HCl 2 gm in 50 mls @ 100 mls/hr 06/15/24 01:00 06/15/24 02:29 Maxipime 2 Gm/Ns 50 Ml IVPB Infused Q12H MALINA Infusion Vancomycin HCl 1,500 mg in 500 mls @ 250 mls/hr 06/15/24 20:00 Vancomycin 1,500 Mg/Ns 500 Ml IVPB Q18H MALINA Levofloxacin 750 mg 06/14/24 09:00 06/15/24 08:48 Levofloxacin 750 Mg Tablet PO 06/18/24 09:01 750 mg DAILY MALINA Administration Morphine Sulfate 2 mg 06/09/24 18:49 06/15/24 04:41 Morphine Sulfate (*Crx) 2 Mg/Ml Inj IV PUSH 2 mg Q2H PRN Administration Breakthrough Pain Rated 4-6 or NPO Morphine Sulfate 4 mg 06/09/24 18:49 06/14/24 16:38 Morphine Sulfate (*Crx) 4 Mg/Ml Inj IV PUSH 4 mg Q2H PRN Administration Breakthrough Pain Rated 7-10 or NPO Naloxone HCl 0.1 mg 06/09/24 18:49 Naloxone Hcl 0.4 Mg/Ml Vial IV PUSH Q2M PRN Opiate Reversal Ondansetron HCl 4 mg 06/09/24 18:49 06/14/24 22:47 Ondansetron Inj 4 Mg/2 Ml Vial IV PUSH 4 mg Q4H PRN Administration Nausea And Vomiting Potassium Chloride 40 meq 06/13/24 11:00 06/15/24 08:49 Potassium Chloride 20 Meq Packet (For Liquid) PO 40 meq DAILY MALINA Administration Radiology Results: ITS Impressions Abdomen Ultrasound 06/08/24 17:38 IMPRESSION: 1. Gallbladder sludge without evident shadowing cholelithiasis over this might be due to the relatively tiny size of the few calcific stone seen on prior CT. 2. Normal proximal common bile duct measurement of 4-5 mm however the more distal duct which was dilated to [address] is obscured. If there is continued clinical concern for biliary obstruction would consider MRCP for further evaluation. MRCP 06/09/24 10:50 IMPRESSION: 1. Cholelithiasis with 3-4 mm stone in the cystic duct which has a low confluence with the distal common bile duct. No dilation of the gallbladder to suggest a significant obstruction or acute cholecystitis. 2. Mild pulmonary edema, trace bilateral pleural effusions and trace amount of perihepatic and perisplenic ascites. Cholangiogram,Operative 06/09/24 18:21 IMPRESSION: 1. 4 mm stone in the distal common bile duct. 2. Two 3 mm filling defects in the cystic duct which may be gas bubbles or stones. Endo Retro Cholangiopancreatogram 06/10/24 16:18 IMPRESSION: 1. Enlarged common duct. Please refer to the ERCP procedure note for additional details. Abdomen/Pelvis CT 06/12/24 13:23 Impression: Acute pancreatitis, with significant interval worsening of peripancreatic fluid and inflammatory change, with fluid extending into the right paracolic gutter and pelvis. No pancreatic necrosis or pseudocyst. 3.6 cm left ovarian cyst. [id number] right pleural effusion and small left pleural effusion. Chest X-Ray 06/14/24 21:50 IMPRESSION: Scattered bilateral patchy pulmonary infiltrates, most prominent in the lower lobes, increased since earlier today, suggesting worsening bilateral pneumonia Abdomen X-Ray 06/15/24 05:43 IMPRESSION: 1. Nonobstructive bowel gas pattern. Chest CTA 06/15/24 06:41 IMPRESSION: 1. No pulmonary embolus. 2. Small pleural effusions. 3. Acute interstitial pancreatitis. Labs Labs: Laboratory Results - last 24 hr 06/14/24 06/14/24 06/15/24 21:40 23:30 00:48 WBC 12.9 H RBC 3.74 L Hgb 11.5 L Hct 34.4 L MCV 92.0 MCH 30.7 MCHC 33.4 RDW 12.9 Plt Count 253 MPV 9.4 Puncture Site Right radial ABG pH 7.384 ABG pCO2 31.6 L ABG pO2 110.6 H ABG PO2/FiO2 Ratio 3.07 ABG HCO3 18.4 L ABG O2 Saturation 98.0 ABG O2 Content 16.4 ABG Base Excess -5.6 A-a Gradient 109.4 Oxyhemoglobin 98.1 Total Hemoglobin 11.8 L O2 Delivery Device Nasal cannula O2 Liters/Min 4.0 FiO2 36 Sodium Potassium Chloride Carbon Dioxide Anion Gap BUN Creatinine Estim Creat Clear Calc Estimated GFR Glucose Lactic Acid 2.6 H Calcium Phosphorus 2.9 Magnesium 1.8 AST ALT Ammonia Nasal MRSA (PCR) SARS-CoV-2 RNA (RT-PCR) Negative 06/15/24 06/15/24 06/15/24 02:05 02:09 04:24 WBC 13.6 H RBC 3.54 L Hgb 11.0 L Hct 32.2 L MCV 91.0 MCH 31.1 MCHC 34.2 RDW 13.0 Plt Count 250 MPV 9.7 Puncture Site ABG pH ABG pCO2 ABG pO2 ABG PO2/FiO2 Ratio ABG HCO3 ABG O2 Saturation ABG O2 Content ABG Base Excess A-a Gradient Oxyhemoglobin Total Hemoglobin O2 Delivery Device O2 Liters/Min FiO2 Sodium 132 L Potassium 3.0 L Chloride 106 Carbon Dioxide 20 L Anion Gap 6 BUN 5 L Creatinine 0.70 Estim Creat Clear Calc Not Reportable Estimated GFR > 60 Glucose 103 Lactic Acid 1.1 Calcium 8.0 L Phosphorus Magnesium AST ALT Ammonia Nasal MRSA (PCR) Not detected SARS-CoV-2 RNA (RT-PCR) 06/15/24 12:09 WBC RBC Hgb Hct MCV MCH MCHC RDW Plt Count MPV Puncture Site ABG pH ABG pCO2 ABG pO2 ABG PO2/FiO2 Ratio ABG HCO3 ABG O2 Saturation ABG O2 Content ABG Base Excess A-a Gradient Oxyhemoglobin Total Hemoglobin O2 Delivery Device O2 Liters/Min FiO2 Sodium Potassium Chloride Carbon Dioxide Anion Gap BUN Creatinine Estim Creat Clear Calc Estimated GFR Glucose Lactic Acid Calcium Phosphorus Magnesium AST 19 ALT 37 H Ammonia < 9 L Nasal MRSA (PCR) SARS-CoV-2 RNA (RT-PCR)
[2024-06-15 16:16] LABS: Add Urine Microscopic? YES; Appearance Urine Clear (Clear); Bacteria Urine None Seen /hpf; Bilirubin Urine Negative (Negative); Blood Urine Negative (Negative); Color Urine Yellow (Yellow); Glucose Urine UA Negative (Negative); Ketones Urine 2+ mg/dL (Negative); Leukocyte Esterase Ur Negative LEU/UL (Negative); Nitrate Urine Negative (Negative); Protein Urine 1+ mg/dL (Negative); RBC Urine 0-2 /hpf (0-2); Specific Grav Ur 1.018 (1.001-1.035); Squamous Epithelial Cell Urine None Seen /hpf (Few); WBC Urine 0-5 /hpf (0-3); pH Urine 5.5 (5.0-9.0)
[2024-06-15] MEDS: IBUPROFEN IV 800 MG/200 ML 800 MG/200 ML BAG 400 MG IVPB (19:04)
[2024-06-15] MEDS: VANCOMYCIN 1,500 MG/NS 500 ML 1,500 MG/500 ML BAG 250 MG IVPB (19:40)
[2024-06-15] MEDS: FUROSEMIDE INJ 40 MG/4 ML VIAL 20 MG IV PUSH (21:18)
[2024-06-16] VITALS (16 sets, daily range): BP systolic 107–115; BP diastolic 58–75; PULSE 98–117; RESP 14–20; TEMP 36.4–36.9; O2SAT 93–99
[2024-06-16] MEDS: CEFEPIME 2 GM/NS 50 ML 2 GM/50 ML BAG IVPB ×2 (00:27→14:10)
[2024-06-16] MEDS: HYDROcodone/acetaminophen (*CRX) 5-325 MG TABLET 1 TAB PO ×2 (00:34→17:57)
[2024-06-16] MEDS: IBUPROFEN IV 800 MG/200 ML 800 MG/200 ML BAG 400 MG IVPB ×3 (01:48→19:40)
[2024-06-16] MEDS: LEVALBUTEROL NEB 1.25 MG/3 ML INHALATION ×4 (02:14→22:16)
[2024-06-16 05:33] LABS: Hematocrit 31.1 % (37.0-47.0); Hemoglobin 10.8 g/dL (12.0-15.0); Mean Corpuscular HGB Conc 34.7 g/dl (32-36); Mean Corpuscular Hemoglobin 31.1 pg (26-34); Mean Corpuscular Volume 89.6 fl (80-100); Mean Platelet Volume 9.1 fl (7.4-10.4); Platelet Count Result 278 k/mm3 (150-375); Red Blood Count 3.47 M/mm3 (4.2-5.4); Red Cell Distribution Width 13.2 % (11.5-14.5); White Blood Count 17.6 K/mm3 (4.5-10.0)
[2024-06-16 05:52] LABS: Anion Gap 1 mmol/L (4-12); Blood Urea Nitrogen 6 mg/dL (7-17); Calcium 8.3 mg/dL (8.4-10.2); Carbon Dioxide 29 mmol/L (22-30); Chloride 105 mmol/L (98-107); Estimated Glomerular Filt Rate > 60; Glucose 95 mg/dL (65-110); Potassium 2.3 mmol/L (3.4-5.0); Sodium 135 mmol/L (137-145)
[2024-06-16] MEDS: POTASSIUM CHLORIDE INJ 40 MEQ in SODIUM CHLORIDE 0.9% IV 500 ML 130 MEQ IVPB ×2 (06:12→17:51)
--- NOTE | 2024-06-16 07:13 | PM.IMPN ---
Progress Note: A&P Assessment and Plan (1) Cholelithiasis: Qualifiers: Biliary obstruction: with biliary obstruction Cholecystitis presence: without cholecystitis Cholelithiasis location: gallbladder and bile duct Qualified Code(s): K80.71 - Calculus of gallbladder and bile duct without cholecystitis with obstruction Code(s): K80.20 - Calculus of gallbladder without cholecystitis without obstruction Status: Acute Assessment and Plan: - Elevated LFTs, downtrending - Abdomen/Pelvis CT 1. Cholelithiasis with mild dilation the common bile duct 8 mm in minimal central and hepatic biliary ductal dilation. No distal obstructing stone identified although could consider MRCP for more sensitive evaluation as clinically indicated. 2. 3.7 cm left adnexal cyst. - Abdomen Ultrasound 1. Gallbladder sludge without evident shadowing cholelithiasis over this might be due to the relatively tiny size of the few calcific stone seen on prior CT. 2. Normal proximal common bile duct measurement of 4-5 mm however the more distal duct which was dilated to [address] is obscured. - MRCP 1. Cholelithiasis with 3-4 mm stone in the cystic duct which has a low confluence with the distal common bile duct. No dilation of the gallbladder to suggest a significant obstruction or acute cholecystitis. 2. Mild pulmonary edema, trace bilateral pleural effusions and trace amount of perihepatic and perisplenic ascites. - IV pain management - Monitor vital signs, I and O's, check stool output, neuro status and patient is a fall risk - Monitor serum electrolytes and CBC - Consult GI for further evaluation, appreciate assistance and recommendation See MRCP result above - Consult surgery for further evaluation, appreciate assistance and recommendation - laparoscopic cholecystectomy with DR. Paulino-06/09 - continue supportive care 06/11- ercp yesterday with sphincterotomy, unfortunately after procedure with severe abdominal pain pancreatitis- per CT report 06/12-, IV fluids, Pain control surgery, GI following this am- low BP, rr higher still abd pain, WBC elevated- will repeat CT scan-ordered. 250 ml bolus 0.9 NS Pt is clinically better today 06/13- stable- GI advancing diet- monitor 06/14 slowly imporving GI is following- advancing diet again today to full liquid-06/16 (2) Transaminitis: Code(s): R74.01 - Elevation of levels of liver transaminase levels Status: Acute Assessment and Plan: LFTs on admission: Tot bili 2.4, AST 1378, ALT 812, Alk phos 161 Likely secondary to common bile duct and hepatic biliary ductal dilation as seen on imaging - LFTs on am labs: Tot bili 1.0, AST 482, ALT 558, Alk phos 125 - See cholelithiasis plan #1 - Monitor 06/12- labs are ordered-pending 06/13- improving labs monitor (3) Common bile duct dilatation: Code(s): K83.8 - Other specified diseases of biliary tract Status: Acute Assessment and Plan: see choledocholithiasis plan #1 (4) Post-ERCP acute pancreatitis: Code(s): K91.89 - Other postprocedural complications and disorders of digestive system; K85.90 - Acute pancreatitis without necrosis or infection, unspecified Status: Acute Assessment and Plan: 06/11- ercp yesterday with sphincterotomy, unfortunately after procedure with severe abdominal pain pancreatitis- per st report iv fluids, pain control clinically better- gi will advance diet improving 06/15- was on clear liquids- but was advanced to full and became more nauseated so back to clears -monitor 06/16- feeling better- GI is advancing diet to full (5) Pleural effusion: Code(s): J90 - Pleural effusion, not elsewhere classified Status: Acute Assessment and Plan: was present on CT on 06/10 06/12- repeated- persistent pt is not ambulating as much due to pain, even though she is using IS- would be prudent to start pneumonia coverage at this point will repeat chest xray today- ordered 06.15- wbc continues to improve. encourage ambulation-IS. Pulm was consulted. 06/16 on room air now- monitor (6) Hypokalemia: Code(s): E87.6 - Hypokalemia Status: Acute Assessment and Plan: intake related will replace IV repeat later today- ordered 06/16 mag replaced (7) Hyponatremia: Code(s): E87.1 - Hypo-osmolality and hyponatremia Status: Acute Assessment and Plan: diet related very likely will monitor for now- add diet.supplements if needed Time Spent With Patient Time with patient: Greater than 35 minutes Subjective Date/time seen: 06/16/24 07:13 Interval history: pt is seen and examined. WBC increased overnight- started on IV antibiotics. tired. Full liquid diet advanced per GI. Review of Systems Review of Systems: abd pain is better today. overall weakness Cardiovascular: Cardiovascular: Denies chest pain Respiratory: Respiratory: Denies chest congestion and Denies dyspnea on exertion Gastrointestinal: Gastrointestinal: Reports abdominal pain Comments: better today Exam Narrative: General: female in no acute respiratory distress who is nontoxic appearing. HEENT: Normocephalic. Atraumatic. Extraocular movement intact. Sclera clear and anicteric. No facial asymmetry. Chest: Lungs are clear to auscultation bilaterally. No wheezes or crackles. CV: Heart was bradycardic with regular rhythm. S1-S2. No murmurs, gallops, or rubs. Abd: Abdomen tender. Nondistended. Hypoactive bowel sounds. No organomegaly or masses. Ext: No clubbing, cyanosis, or edema. 2+ DP pulses bilaterally. Neuro: Patient is alert and oriented x4. Cranial nerves 2-12 are intact. Speech is clear. Const: General: comfortable Objective Data Vital Signs Vital Signs: Vital Signs - 24 hr 06/15/24 08:00 06/15/24 08:50 06/15/24 09:11 Temperature Pulse Rate 103 H Respiratory Rate Blood Pressure Pulse Oximetry 99 99 Oxygen Delivery Nasal Cannula Nasal Cannula Oxygen Flow Rate 2 4 Fraction of Inspired Oxygen 36 06/15/24 10:00 06/15/24 12:00 06/15/24 14:00 Temperature 98.4 F Pulse Rate 108 H 113 H Respiratory Rate 18 Blood Pressure 115/70 Pulse Oximetry 99 100 Oxygen Delivery Nasal Cannula Oxygen Flow Rate 2 Fraction of Inspired Oxygen 28 06/15/24 16:00 06/15/24 20:00 06/15/24 20:00 Temperature Pulse Rate 109 H 99 114 H Respiratory Rate 18 Blood Pressure Pulse Oximetry 97 Oxygen Delivery Nasal Cannula Oxygen Flow Rate 2 Fraction of Inspired Oxygen 06/15/24 20:38 06/16/24 00:00 06/16/24 02:15 Temperature 99.4 F Pulse Rate 99 102 H Respiratory Rate 18 Blood Pressure 120/69 Pulse Oximetry 97 96 Oxygen Delivery Room Air Oxygen Flow Rate Fraction of Inspired Oxygen 06/16/24 02:15 06/16/24 02:23 06/16/24 03:02 Temperature 98.5 F Pulse Rate 105 H 102 H 117 H Respiratory Rate 18 18 20 Blood Pressure 107/58 L Pulse Oximetry 99 Oxygen Delivery Oxygen Flow Rate Fraction of Inspired Oxygen 06/16/24 04:00 Temperature Pulse Rate 112 H Respiratory Rate Blood Pressure Pulse Oximetry Oxygen Delivery Oxygen Flow Rate Fraction of Inspired Oxygen Intake/Output Intake/Output: Intake & Output 06/13/24 06/14/24 06/15/24 06/16/24 23:59 23:59 23:59 23:59 Intake Total 4836.7 2228.8 1360 640 Output Total 400 3200 900 Balance 4436.7 2228.8 -1840 -260 Meds/Results Medications: Active Medications Generic Name Dose Route Start Last Admin Trade Name Freq PRN Reason Stop Dose Admin Acetaminophen 500 mg 06/09/24 18:49 06/10/24 10:14 Acetaminophen 500 Mg Tablet PO 500 mg Q6H PRN Administration Pain Rated 1-3 Hydrocodone Bitart/Acetaminophen 1 tab 06/09/24 18:49 06/16/24 00:34 Hydrocodone/Acetaminophen (*Crx) 5-325 Mg Tablet PO 1 tab Q4H PRN Administration Pain Rated 4-6 Hydrocodone Bitart/Acetaminophen 1 tab 06/09/24 18:49 06/14/24 14:29 Hydrocodone/Acetaminophen (*Crx) 7.5-325 Mg Tablet PO 1 tab Q4H PRN Administration Pain Rated 7-10 Diphenhydramine HCl 25 mg 06/09/24 18:49 06/12/24 21:08 Diphenhydramine Hcl Inj 50 Mg/Ml Vial IV PUSH 25 mg Q6H PRN Administration Itching Famotidine 20 mg 06/11/24 21:00 06/15/24 20:55 Famotidine 20 Mg/2 Ml Vial IV PUSH 20 mg Q12HR MALINA Administration Ibuprofen 800 mg in 200 mls @ 400 mls/hr 06/09/24 18:49 06/16/24 02:21 Caldolor 800 Mg/200 Ml IVPB Infused Q6H PRN Infusion Breakthrough Pain Rated 1-3 or NPO Cefepime HCl 2 gm in 50 mls @ 100 mls/hr 06/15/24 01:00 06/16/24 01:02 Maxipime 2 Gm/Ns 50 Ml IVPB Infused Q12H MALINA Infusion Vancomycin HCl 1,500 mg in 500 mls @ 250 mls/hr 06/15/24 20:00 06/15/24 21:40 Vancomycin 1,500 Mg/Ns 500 Ml IVPB Infused Q18H MALINA Infusion Potassium Chloride 40 meq/ 520 mls @ 130 mls/hr 06/16/24 05:54 06/16/24 06:12 Sodium Chloride IVPB 06/16/24 09:53 130 mls/hr ONCE ONE Administration Potassium Chloride 40 meq/ 520 mls @ 130 mls/hr 06/16/24 07:08 Sodium Chloride IVPB 06/16/24 11:07 ONCE ONE Magnesium Sulfate 2 gm in 50 mls @ 25 mls/hr 06/16/24 07:11 Magnesium Sulf 2 Gm/Water 50ml IVPB 06/16/24 09:10 ONCE ONE Levalbuterol HCl 1.25 mg 06/16/24 02:00 06/16/24 02:14 Levalbuterol Neb 1.25 Mg/3 Ml INHALATION 1.25 mg Q6HRT MALINA Administration Levofloxacin 750 mg 06/14/24 09:00 06/15/24 08:48 Levofloxacin 750 Mg Tablet PO 06/18/24 09:01 750 mg DAILY MALINA Administration Morphine Sulfate 2 mg 06/09/24 18:49 06/15/24 04:41 Morphine Sulfate (*Crx) 2 Mg/Ml Inj IV PUSH 2 mg Q2H PRN Administration Breakthrough Pain Rated 4-6 or NPO Morphine Sulfate 4 mg 06/09/24 18:49 06/14/24 16:38 Morphine Sulfate (*Crx) 4 Mg/Ml Inj IV PUSH 4 mg Q2H PRN Administration Breakthrough Pain Rated 7-10 or NPO Naloxone HCl 0.1 mg 06/09/24 18:49 Naloxone Hcl 0.4 Mg/Ml Vial IV PUSH Q2M PRN Opiate Reversal Ondansetron HCl 4 mg 06/09/24 18:49 06/14/24 22:47 Ondansetron Inj 4 Mg/2 Ml Vial IV PUSH 4 mg Q4H PRN Administration Nausea And Vomiting Potassium Chloride 40 meq 06/13/24 11:00 06/15/24 08:49 Potassium Chloride 20 Meq Packet (For Liquid) PO 40 meq DAILY MALINA Administration Radiology Results: ITS Impressions Abdomen Ultrasound 06/08/24 17:38 IMPRESSION: 1. Gallbladder sludge without evident shadowing cholelithiasis over this might be due to the relatively tiny size of the few calcific stone seen on prior CT. 2. Normal proximal common bile duct measurement of 4-5 mm however the more distal duct which was dilated to [address] is obscured. If there is continued clinical concern for biliary obstruction would consider MRCP for further evaluation. MRCP 06/09/24 10:50 IMPRESSION: 1. Cholelithiasis with 3-4 mm stone in the cystic duct which has a low confluence with the distal common bile duct. No dilation of the gallbladder to suggest a significant obstruction or acute cholecystitis. 2. Mild pulmonary edema, trace bilateral pleural effusions and trace amount of perihepatic and perisplenic ascites. Cholangiogram,Operative 06/09/24 18:21 IMPRESSION: 1. 4 mm stone in the distal common bile duct. 2. Two 3 mm filling defects in the cystic duct which may be gas bubbles or stones. Endo Retro Cholangiopancreatogram 06/10/24 16:18 IMPRESSION: 1. Enlarged common duct. Please refer to the ERCP procedure note for additional details. Abdomen/Pelvis CT 06/12/24 13:23 Impression: Acute pancreatitis, with significant interval worsening of peripancreatic fluid and inflammatory change, with fluid extending into the right paracolic gutter and pelvis. No pancreatic necrosis or pseudocyst. 3.6 cm left ovarian cyst. [id number] right pleural effusion and small left pleural effusion. Chest X-Ray 06/14/24 21:50 IMPRESSION: Scattered bilateral patchy pulmonary infiltrates, most prominent in the lower lobes, increased since earlier today, suggesting worsening bilateral pneumonia Abdomen X-Ray 06/15/24 05:43 IMPRESSION: 1. Nonobstructive bowel gas pattern. Chest CTA 06/15/24 06:41 IMPRESSION: 1. No pulmonary embolus. 2. Small pleural effusions. 3. Acute interstitial pancreatitis. Labs Labs: Laboratory Results - last 24 hr 06/15/24 06/15/24 06/16/24 12:09 16:04 05:22 WBC 17.6 H RBC 3.47 L Hgb 10.8 L Hct 31.1 L MCV 89.6 MCH 31.1 MCHC 34.7 RDW 13.2 Plt Count 278 MPV 9.1 Sodium 135 L Potassium 2.3 L* Chloride 105 Carbon Dioxide 29 Anion Gap 1 L BUN 6 L Creatinine 0.70 Estim Creat Clear Calc Not Reportable Estimated GFR > 60 Glucose 95 Calcium 8.3 L AST 19 ALT 37 H Ammonia < 9 L Urine Color Yellow Urine Appearance Clear Urine pH 5.5 Ur Specific [place] 1.018 Urine Protein 1+ H Urine Glucose (UA) Negative Urine Ketones 2+ H Ur Blood (Man) Negative Urine Nitrate Negative Urine Bilirubin Negative Urine Urobilinogen 1.0 Ur Leukocyte Esterase Negative Urine RBC 0-2 Urine WBC 0-5 Ur Squamous Epith Cells None seen Urine Bacteria None seen Urine Casts 3-5 Quality VTE Prophylaxis VTE prophylaxis: mechanical ordered
[2024-06-16] MEDS: levoFLOXacin 750 MG TABLET PO (08:34)
[2024-06-16] MEDS: FAMOTIDINE 20 MG/2 ML VIAL IV PUSH ×2 (08:35→21:05)
[2024-06-16] MEDS: POTASSIUM CHLORIDE 20 MEQ PACKET (FOR LIQUID) 40 MEQ PO (08:35)
[2024-06-16] MEDS: ONDANSETRON INJ 4 MG/2 ML VIAL IV PUSH ×3 (08:38→22:09)
[2024-06-16] MEDS: MAGNESIUM SULF 2 GM/WATER 50ML 2 GM/50 ML BAG IVPB (08:40)
--- NOTE | 2024-06-16 12:01 | P.PNGI_ITS ---
Progress Note: A&P Assessment and Plan (1) Post-ERCP acute pancreatitis: Code(s): K91.89 - Other postprocedural complications and disorders of digestive system; K85.90 - Acute pancreatitis without necrosis or infection, unspecified Status: Acute Assessment and Plan: will advance to full liquid diet, repeat CT chest no PE, similar pancreatitis, lft were trending down asking for less pain meds (2) Elevated LFTs: Code(s): R79.89 - Other specified abnormal findings of blood chemistry Status: Acute Assessment and Plan: improved (3) Cholelithiasis: Qualifiers: Cholelithiasis location: gallbladder and bile duct Cholecystitis presence: without cholecystitis Biliary obstruction: with biliary obstruction Qualified Code(s): K80.71 - Calculus of gallbladder and bile duct without cholecystitis with obstruction Code(s): K80.20 - Calculus of gallbladder without cholecystitis without obstruction Status: Acute Assessment and Plan: s/p lap felicia (4) Acute epigastric pain: Code(s): R10.13 - Epigastric pain Status: Acute Assessment and Plan: mostly from pancreatitis medical management (5) Common bile duct dilatation: Code(s): K83.8 - Other specified diseases of biliary tract Status: Acute Assessment and Plan: s/p ercp Subjective Date/time seen: 06/16/24 12:01 Interval history: she is doing better and does not have to ask for iv pain meds she would like to advance her diet to full liquid Review of Systems Review of Systems: All systems reviewed & are unremarkable except as noted in HPI and below Exam Const: General: no acute distress HENMT: Face/Nose/Sinus: Normal nares present Eyes: General: appearance normal, both eyes and all related structures Neck: Neck: supple Resp: Effort & Inspection: normal respiratory effort Auscultation: no crackles and diminished lung sounds Cardio: Rate: regular rate GI: GI Palp: Yes Soft to palpation and Yes Tenderness to palpation present (GI) (less tender today) Auscultation: normal bowel sounds Skin: General skin exam: normal color Neuro: Speech: normal speech Motor exam (neuro): 5/5 motor strength present throughout Extrem: General: normal to inspection Psych: Mental Status: mental status grossly normal Objective Data Vital Signs Vital Signs: Vital Signs - 24 hr 06/15/24 14:00 06/15/24 16:00 06/15/24 20:00 Temperature 98.4 F Pulse Rate 113 H 109 H 99 Respiratory Rate 18 18 Blood Pressure 115/70 Pulse Oximetry 100 97 Oxygen Delivery Nasal Cannula Oxygen Flow Rate 2 Fraction of Inspired Oxygen 28 06/15/24 20:00 06/15/24 20:38 06/16/24 00:00 Temperature 99.4 F Pulse Rate 114 H 99 102 H Respiratory Rate 18 Blood Pressure 120/69 Pulse Oximetry 97 Oxygen Delivery Oxygen Flow Rate Fraction of Inspired Oxygen 06/16/24 02:15 06/16/24 02:15 06/16/24 02:23 Temperature Pulse Rate 105 H 102 H Respiratory Rate 18 18 Blood Pressure Pulse Oximetry 96 Oxygen Delivery Room Air Oxygen Flow Rate Fraction of Inspired Oxygen 06/16/24 03:02 06/16/24 04:00 06/16/24 08:09 Temperature 98.5 F Pulse Rate 117 H 112 H Respiratory Rate 20 Blood Pressure 107/58 L Pulse Oximetry 99 93 Oxygen Delivery Room Air Oxygen Flow Rate Fraction of Inspired Oxygen 06/16/24 08:09 06/16/24 08:19 Temperature Pulse Rate 103 H 104 H Respiratory Rate 20 20 Blood Pressure Pulse Oximetry Oxygen Delivery Oxygen Flow Rate Fraction of Inspired Oxygen Intake/Output Intake/Output: Intake & Output 06/13/24 06/14/24 06/15/24 06/16/24 23:59 23:59 23:59 23:59 Intake Total 4836.7 2228.8 1360 640 Output Total 400 3200 900 Balance 4436.7 2228.8 -1840 -260 Meds/Results Medications: Active Medications Generic Name Dose Route Start Last Admin Trade Name Freq PRN Reason Stop Dose Admin Acetaminophen 500 mg 06/09/24 18:49 06/10/24 10:14 Acetaminophen 500 Mg Tablet PO 500 mg Q6H PRN Administration Pain Rated 1-3 Hydrocodone Bitart/Acetaminophen 1 tab 06/09/24 18:49 06/16/24 00:34 Hydrocodone/Acetaminophen (*Crx) 5-325 Mg Tablet PO 1 tab Q4H PRN Administration Pain Rated 4-6 Hydrocodone Bitart/Acetaminophen 1 tab 06/09/24 18:49 06/14/24 14:29 Hydrocodone/Acetaminophen (*Crx) 7.5-325 Mg Tablet PO 1 tab Q4H PRN Administration Pain Rated 7-10 Diphenhydramine HCl 25 mg 06/09/24 18:49 06/12/24 21:08 Diphenhydramine Hcl Inj 50 Mg/Ml Vial IV PUSH 25 mg Q6H PRN Administration Itching Famotidine 20 mg 06/11/24 21:00 06/16/24 08:35 Famotidine 20 Mg/2 Ml Vial IV PUSH 20 mg Q12HR MALINA Administration Ibuprofen 800 mg in 200 mls @ 400 mls/hr 06/09/24 18:49 06/16/24 11:45 Caldolor 800 Mg/200 Ml IVPB 400 mls/hr Q6H PRN Administration Breakthrough Pain Rated 1-3 or NPO Cefepime HCl 2 gm in 50 mls @ 100 mls/hr 06/15/24 01:00 06/16/24 01:02 Maxipime 2 Gm/Ns 50 Ml IVPB Infused Q12H MALINA Infusion Vancomycin HCl 1,500 mg in 500 mls @ 250 mls/hr 06/15/24 20:00 06/15/24 21:40 Vancomycin 1,500 Mg/Ns 500 Ml IVPB Infused Q18H MALINA Infusion Levalbuterol HCl 1.25 mg 06/16/24 02:00 06/16/24 08:07 Levalbuterol Neb 1.25 Mg/3 Ml INHALATION 1.25 mg Q6HRT MALINA Administration Levofloxacin 750 mg 06/14/24 09:00 06/16/24 08:34 Levofloxacin 750 Mg Tablet PO 06/18/24 09:01 750 mg DAILY MALINA Administration Morphine Sulfate 2 mg 06/09/24 18:49 06/15/24 04:41 Morphine Sulfate (*Crx) 2 Mg/Ml Inj IV PUSH 2 mg Q2H PRN Administration Breakthrough Pain Rated 4-6 or NPO Morphine Sulfate 4 mg 06/09/24 18:49 06/14/24 16:38 Morphine Sulfate (*Crx) 4 Mg/Ml Inj IV PUSH 4 mg Q2H PRN Administration Breakthrough Pain Rated 7-10 or NPO Naloxone HCl 0.1 mg 06/09/24 18:49 Naloxone Hcl 0.4 Mg/Ml Vial IV PUSH Q2M PRN Opiate Reversal Ondansetron HCl 4 mg 06/09/24 18:49 06/16/24 08:38 Ondansetron Inj 4 Mg/2 Ml Vial IV PUSH 4 mg Q4H PRN Administration Nausea And Vomiting Potassium Chloride 40 meq 06/13/24 11:00 06/16/24 08:35 Potassium Chloride 20 Meq Packet (For Liquid) PO 40 meq DAILY MALINA Administration Radiology Results: ITS Impressions Abdomen Ultrasound 06/08/24 17:38 IMPRESSION: 1. Gallbladder sludge without evident shadowing cholelithiasis over this might be due to the relatively tiny size of the few calcific stone seen on prior CT. 2. Normal proximal common bile duct measurement of 4-5 mm however the more distal duct which was dilated to [address] is obscured. If there is continued clinical concern for biliary obstruction would consider MRCP for further evaluation. MRCP 06/09/24 10:50 IMPRESSION: 1. Cholelithiasis with 3-4 mm stone in the cystic duct which has a low confluence with the distal common bile duct. No dilation of the gallbladder to suggest a significant obstruction or acute cholecystitis. 2. Mild pulmonary edema, trace bilateral pleural effusions and trace amount of perihepatic and perisplenic ascites. Cholangiogram,Operative 06/09/24 18:21 IMPRESSION: 1. 4 mm stone in the distal common bile duct. 2. Two 3 mm filling defects in the cystic duct which may be gas bubbles or stones. Endo Retro Cholangiopancreatogram 06/10/24 16:18 IMPRESSION: 1. Enlarged common duct. Please refer to the ERCP procedure note for additional details. Abdomen/Pelvis CT 06/12/24 13:23 Impression: Acute pancreatitis, with significant interval worsening of peripancreatic fluid and inflammatory change, with fluid extending into the right paracolic gutter and pelvis. No pancreatic necrosis or pseudocyst. 3.6 cm left ovarian cyst. [id number] right pleural effusion and small left pleural effusion. Chest X-Ray 06/14/24 21:50 IMPRESSION: Scattered bilateral patchy pulmonary infiltrates, most prominent in the lower lobes, increased since earlier today, suggesting worsening bilateral pneumonia Abdomen X-Ray 06/15/24 05:43 IMPRESSION: 1. Nonobstructive bowel gas pattern. Chest CTA 06/15/24 06:41 IMPRESSION: 1. No pulmonary embolus. 2. Small pleural effusions. 3. Acute interstitial pancreatitis. Labs Labs: Laboratory Results - last 24 hr 12/23/24 12/23/24 12/24/24 12:09 16:04 05:22 WBC 17.6 H RBC 3.47 L Hgb 10.8 L Hct 31.1 L MCV 89.6 MCH 31.1 MCHC 34.7 RDW 13.2 Plt Count 278 MPV 9.1 Sodium 135 L Potassium 2.3 L* Chloride 105 Carbon Dioxide 29 Anion Gap 1 L BUN 6 L Creatinine 0.70 Estim Creat Clear Calc Not Reportable Estimated GFR > 60 Glucose 95 Calcium 8.3 L AST 19 ALT 37 H Ammonia < 9 L Urine Color Yellow Urine Appearance Clear Urine pH 5.5 Ur Specific [place] 1.018 Urine Protein 1+ H Urine Glucose (UA) Negative Urine Ketones 2+ H Ur Blood (Man) Negative Urine Nitrate Negative Urine Bilirubin Negative Urine Urobilinogen 1.0 Ur Leukocyte Esterase Negative Urine RBC 0-2 Urine WBC 0-5 Ur Squamous Epith Cells None seen Urine Bacteria None seen Urine Casts 3-5
[2024-06-16 14:13] LABS: Vancomycin Trough 6.7 ug/mL (10.0-20.0)
[2024-06-16] MEDS: VANCOMYCIN 1,250 MG/NS 250 ML 1,250 MG/250 ML BAG 166.67 MG IVPB ×2 (15:04→23:11)
[2024-06-16 17:21] LABS: Potassium 2.7 mmol/L (3.4-5.0)
[2024-06-16] MEDS: POTASSIUM CHLORIDE 20 MEQ ER TABLET 40 MEQ PO (17:50)
--- OUTSIDE RECORDS SUMMARY | 2024-06-16 22:52 | XMS_ITS | Encounter Summary ---
Author Organization [facility] Address [address] [place] [address] Care Team Providers Care Local Truck Driver Name Role Phone Basilia Gomez MD Primary Care Provider [phone] Encounter Details Date Type Department Care Team (Late st Contact Info) Description 04/28/2024 External Device Data [facility] ABSTRACTION Provider, Abstract NO ADDRESS ON FILE Social History Tobacco Use Types Packs/Day Years Used Date Smoking Tobacco: Never Smokeless Tobacco: Never Alcohol Use Standard Drinks/Week Comments No 0 (1 standard drink = 0.6 oz pur e alcohol) Sex and Gender Information Value Date Recorded Sex Assigned at Not on file Gender Identity Not on file Sexual Orientation Not on file Job Start Date Occupation Industry Not on file Not on file Not on file documented as of this encounter Plan of Treatment Not on file documented as of this encounter Visit Diagnoses Not on filedocumented in this encounter Additional Health Concerns Assessment Noted Time PHQ-9 Depression Total Score: 3 01/22/20 24 2:00 PM CDT documented as of this encounter Care Teams Local Truck Driver Relationship Specialty Start Date End Date Basilia Gomez MD [address] [place], [place] [address] [place] [id number] PCP - General Internal Medicine 12/13/23 documented as of this encounter
--- OUTSIDE RECORDS SUMMARY | 2024-06-16 22:52 | XMS_ITS | Encounter Summary ---
Author Organization [facility] Address [address] [place] [address] Care Team Providers Care Aviation Medicine Specialist Name Role Phone Basilia Gomez MD Primary Care Provider [phone] Reason for Visit * Reason Onset Date Comments [facility] [place] Appt 02/28/2024 1st contact to r maryule missed appointment. Left message. Encounter Details Date Type Department Care Team (Late st Contact Info) Description 02/28/2024 Telephone [facility] [employer] [place] [address] [place] [address] Leandro Paul [address] [place] [id number] [facility] [place] Appt (1st contact to reschedule missed appointment. Left message.) Social History Tobacco Use Types Packs/Day Years [...] documented as of this encounter Care Teams Aviation Medicine Specialist Relationship Specialty Start Date End Date Basilia Gomez MD [address] [place] [address] PCP - General Internal Medicine 12/13/23 documented as of this encounter"
--- OUTSIDE RECORDS SUMMARY | 2024-06-16 22:52 | XMS_ITS | Encounter Summary ---
Author Organization [facility] Address [address] [place] [address] Care Team Providers Care Roll Former Name Role Phone Basilia Gomez MD Primary Care Provider [phone] Encounter Details Date Type Department Care Team (Late st Contact Info) Description 02/13/2024 External Device Data ST[facility] ABSTRACTION Provider, Abstract [...] documented as of this encounter Care Teams Roll Former Relationship Specialty Start Date End Date Basilia Gomze MD [address] [place], [place] [address] [place] [address] PCP - General Internal Medicine 12/13/23 documented as of this encounter
--- OUTSIDE RECORDS SUMMARY | 2024-06-16 22:52 | XMS_ITS | Encounter Summary ---
Author Organization [facility] Address [address] [place] [address] Care Team Providers Care Cath Lab Tech Name Role Phone Basilia Gomez MD Primary Care Provider [phone] Reason for Visit * Reason Comments Depression Anxiety Encounter Details Date Type Department Care Team (Late st Contact Info) Description 12/16/2023 2:30 PM CDT Video Visit [facility] at Work [employer] [place] [address] [place] [address] Leandro Paul [address] [place] [phone] Acute reaction to situational stress (Primary Dx) Social History Tobacco Use Types Packs/Day Years [...] on file documented as of this encounter Progress Notes * Leandro Paul - 12/16/2023 3:11 PM CDT Collaborative Care - Follow Up Assessment Patient Name: Rhonda Devlin Date: 12/16/23 Length of Visit: 38 minutes Visit Type: Video PCP: Jason Physician Resident: Kanu Reason for Referral: Depression and Stress Symptom Check Check-in: How have things been since our last session? Up and down Current Mood: Discouraged Medication compliance: Yes Current Stressors: 's depressive episodes brings her down Substance usage: na Progress towards Goals Goals: Regain optimism Effective coping with stressors What is going well? Depression and anxiety scores decreased some Any barriers to achieving your goal? Her 's depressive episodes effects her moods Mental Status Examination Rhonda Devlin presents as alert, vigilant. Her appearance is noted to be well groomed and appropriately dressed to season. Rhonda's behavior presents as calm and cooperative. Rhonda's eye contact is noted to be good. Speech is noted to be clear , organized, and normal rate and rhythm. [place] thoughts are noted to be goal-directed, linear, and circumstantial. She reports mood to be discouraged. Her affect is noted to be congruent with presentation. Insight and judgement are noted to be fair. Behavioral Health Measures Depression Screen Positive: PHQ-2 score >= 3 or PHQ-9 score >= 9 PHQ-2 Total: 3 (12/13/2023 9:00 AM) PHQ-9 Total: 10 (12/13/2023 9:00 AM) DEPRESSION PLAN OF CARE Her depression screen was positive. She is currently managed by Behavioral Health/Collaborative Care Anxiety Score: 6 (12/13/2023 9:00 AM) Provisional Diagnosis: Acute reaction to situational stress F43.0 Patient Summary: Rhonda's depression and anxiety scored decreased. However, she reported that shehas been feeling good about the progress they have been making, but when her recently became depressed and responded with negativity, judgment, and criticism, her mood was affected and decreased also. I educated pt on externalizing moods based on her 's reactions versus internalized moods that she determines before and despite his moods and responses. Rhonda linked her current responses when her is upset to her childhood where she was a follower because others spoke over and disregarded her input. I challenged her to review the Cognitive Distortions list that I sent her after our last session. I also challenged her to identify when her faulty message that her voice is insignificant arises automatically, that she needs to be intentional about challenging it with a more true answer. Rhonda does not want to take antidepressants at this time. She wants to try to manage through cognitive restructuring first. Plan: Rhonda will focus on improving their personal basics such as hydration, nutrition, medication compliance, sleep hygiene and movement/exercise. Schedule Follow Up: Next Appointment: 01/08/24 @ 2:30 PM by video Discuss with Psychiatric [employer] Parts Delivery Driver? No This encounter was completed via two-way synchronous audio and video communication. Patient expressed understanding that using technology outside of [facility] has higher potential tointroduce privacy risks: Yes Patient's identity confirmed yes Patient gave verbal consent to have these services billed to their insurance and expressed understanding that co-insurance and deductible may apply: yes Leandro Paul documented in this encounter Plan of Treatment Not on file documented as of this encounter Visit Diagnoses Diagnosis Acute reaction to situational stress- Primary documented in this encounter Additional Health Concerns Assessment Noted Time PHQ-9 Depression Total Score: 3 12/13/19 24 9:00 AM CDT documented as of this encounter Care Teams Cath Lab Tech Relationship Specialty Start Date End Date Basilia Gomez MD [address] [place] [phone] PCP - General Internal Medicine 12/13/23 documented as of this encounter
--- OUTSIDE RECORDS SUMMARY | 2024-06-16 22:52 | XMS_ITS | Encounter Summary ---
Author Organization [facility] Address [address] [place] [address] Care Team Providers Care Claim Clinician Name Role Phone Basilia Gomez MD Primary Care Provider [phone] Reason for Referral * Radiology Services (Routine) - Open Specialty Diagnoses / Procedures Referred By Catracho aguilar Referred To Contact Diagnoses Abnormal mammogram of left breast Procedures MAMMO BREAST US LT COMPLETE Basilia Gomez MD [address] [place] [address] Referral ID Status Reason Start Date Expiration Date Visits Re quested Visits Authorized [id number] Open 12/20/2023 01/19/2025 1 1 * Radiology Services (Routine) - Open Specialty Diagnoses / Procedures Referred By Catracho aguilar Referred To Contact Diagnoses Abnormal mammogram of left breast Procedures MAMMO DIAGNOSTIC UNI LEFT W OR WO CAD Basilia Gomez MD [address] [place] [address] Referral ID Status Reason Start Date Expiration Date Visits Re quested Visits Authorized [id number] Open 12/20/2023 01/19/2025 1 1 Encounter Details Date Type Department Care Team (Late st Contact Info) Description 12/20/2023 Orders Only [facility] at Work [employer] [place] [address] [address] Basilia Gomez MD [address] [place] [address] Abnormal mammogram of left breast (Primary Dx) Social History Tobacco Use Types [...] on file documented as of this encounter Results * MAMMO BREAST US LT COMPLETE (01/13/2024 1:45 PM CDT) Anatomical Region Laterality Modality Breast Left Other Basilia Gomez MD MAMMO ORDERABLES * MAMMO DIAGNOSTIC UNI LEFT W OR WO CAD (12/20/2023) Anatomical Region Laterality Modality Breast Left Other Basilia Gomez MD MAMMO ORDERABLES documented in this encounter Visit Diagnoses Diagnosis Abnormal mammogram of left breast- Primary documented in this encounter Additional Health Concerns Assessment Noted Time PHQ-9 Depression Total Score: 3 12/13/19 24 9:00 AM CDT documented as of this encounter Care Teams Claim Clinician Relationship Specialty Start Date End Date Basilia Gomez MD [address] [place] [address] PCP - General Internal Medicine 12/13/23 documented as of this encounter
--- OUTSIDE RECORDS SUMMARY | 2024-06-16 22:52 | XMS_ITS | Encounter Summary ---
Author Organization [facility] Address [address] [place] [address] Care Team Providers Care Can Operator Name Role Phone Basilia Gomez MD Primary Care Provider [phone] Reason for Visit * Reason Comments wegovy medication moods Encounter Details Date Type Department Care Team (Late st Contact Info) Description 12/13/2023 8:30 AM CDT Office Visit [facility] at Work [employer] [place] [address] [place] [address] Basilia Gomez MD [address] [place] [address] Obesity (BMI 30.0-34.9) (Primary Dx); Situational mixed anxiety and depressive disorder Social History Tobacco Use Types Packs/Day Years [...] on file documented as of this encounter Last Filed Vital Signs Vital Sign Reading Time Taken Comments Blood Pressure 110/76 12/13/2023 8:30 AM CDT Pulse 73 12/13/2023 8:30 AM CDT Temperature 36.8 ??C (98.2 ??F) 12/13/2023 8:30 AM CD T Respiratory Rate 18 12/13/2023 8:30 AM CDT Oxygen Saturation 99% 12/13/2023 8:30 AM CDT Inhaled Oxygen Concentration - - Weight 71.2 kg (157 lb) 12/13/2023 8:30 AM CDT Height 149.9 cm (4' 11 ) 12/13/2023 8:30 AM CDT Body Mass Index 31.71 12/13/2023 8:30 AM CDT documented in this encounter Progress Notes * Basilia Gomez MD - 12/13/2023 8:49 AM CDT C/o HISTORY OF PRESENT ILLNESS Rhonda Devlin, a 43 y.o. female presents with a Chief Complaint of wegovy medication and moods Subjective HPI C/o nausea - not tolerating Wegovy. Did well on Zepbound previously until supply was a problem. Thinks that is better now. Would like to change back C/o no energy- just can not make herself do things. Does not have much she looks forward to doing except spenidng time with on weekends. Feels is depressed- irritable, takes it out onher. Worse through the week. He is a little better on weekends. She works form home. They do not interact much through the weeks. He spends a lot of time in the [employer] . Hard to be around so meone who is unhappy. He will not seek canceling. Has take medication in the past. Was previously helpful. Taking now but she does not feel it makes a difference for him. She loves to knit. Just not interested in knitting now. Planning her son's wedding. Her niece is getting . Upsetting to her that her mother will not be invited to her son's wedding but the mother will be so excited to attend the niece's wedding. REVIEW OF SYSTEMS Review of Systems Constitutional: Positive for fatigue. Gastrointestinal: Positive for constipation (chronic, unchanged) and nausea. Negative for abdominalpain and diarrhea. Psychiatric/Behavioral: Positive for dysphoric mood. Negative for sleep disturbance and suicidal ideas. The patient is nervous/anxious. Objective PHYSICAL EXAM BP 110/76 (BP Location: Left arm, Patient Position (BP): Sitting, BP Cuff Size: Adult) Pulse 73 Temp 98.2 ??F (36.8 ??C) (Tympanic) Resp 18 Ht 4' 11 (1.499 m) Wt 71.2 kg (157 lb) LMP 11/07/2023 (Exact Date) SpO2 99% BMI 31.71 kg/m?? Physical Exam Constitutional: Appearance: She is obese. Cardiovascular: Rate and Rhythm: Normal rate and regular rhythm. Pulmonary: Effort: Pulmonary effort is normal. Breath sounds: Normal breath sounds. Abdominal: General: Bowel sounds are normal. Palpations: There is no mass. Tenderness: There is no abdominal tenderness. There is no guarding. Psychiatric: Attention and Perception: Attention normal. Mood and Affect: Mood is depressed. Affect is flat. Speech: Speech normal. Behavior: Behavior normal. Procedures Assessment ASSESSMENT and PLAN: ICD-10-CM ICD-9-CM 1. Obesity (BMI 30.0-34.9) E66.9 278.00 tirzepatide, weight loss, (Zepbound) 2.5 mg/0.5 mL Pen Injector Follow up between weeks 3 and 4 2. Situational mixed anxiety and depressive disorder F43.23 309.28 Lengthy discussion today 12/15 appointment Collabortive Care- Recommend trial of SSRI- she will consider. Re- address at next visit 3-4 weeks documented in this encounter Plan of Treatment Not on file documented as of this encounter Visit Diagnoses Diagnosis Obesity (BMI 30.0-34.9)- Primary Obesity, unspecified Situational mixed anxiety and depressive disorder Adjustment disorder with mixed anxiety and depressed mood documented in this encounter Additional Health Concerns Assessment Noted Time PHQ-9 Depression Total Score: 3 12/13/19 24 9:00 AM CDT documented as of this encounter Care Teams Can Operator Relationship Specialty Start Date End Date Basilia Gomez MD [address] [place] [address] [place] [address] PCP - General Internal Medicine 12/13/23 documented as of this encounter
--- OUTSIDE RECORDS SUMMARY | 2024-06-16 22:52 | XMS_ITS | Encounter Summary ---
Author Organization [facility] Address [address] [place] [address] Care Team Providers Care Abap Developer Name Role Phone Basilia Gomez MD Primary Care Provider [phone] Reason for Referral * Eval and Treat (Routine) - Closed Specialty Diagnoses / Procedures Referred By Catracho aguilar Referred To Contact Gastroenterology Diagnoses Screening for colon cancer Procedures SC OFFICE/OUTPATIENT ESTABLISHED MOD MDM 30 MIN SC OFFICE/OUTPATIENT NEW MODERATE MDM 45 MINUTES colon Basilia Gomez MD [address] [place] [address] [facility] [address] [place] [address] Referral ID Status Reason Start Date Expiration Date Visits Requested Visits Authorized [id number] Closed Performing Department to Schedule 03/05/2024 03/05/2025 1 1 Reason for Visit * Reason Comments Weight Loss Zepbound Follow Up Encounter Details Date Type Department Care Team (Late st Contact Info) Description 03/05/2024 9:00 AM CDT Office Visit [facility] at Work [employer] [place] [address] [place] [address] Basilia Gomez MD [address] [place] [address] Overweight (Primary Dx); Mixed hyperlipidemia; Screening for colon cancer; Need for rbptkfzdsu-qnoxdxt-z ertussis (Tdap) vaccine Social History Tobacco Use Types Packs/Day Years [...] Sign Reading Time Taken Comments Blood Pressure 110/74 03/05/2024 8:56 AM CDT Pulse 86 03/05/2024 8:56 AM CDT Temperature 36.6 ??C (97.8 ??F) 03/05/2024 8:56 AM CD T Respiratory Rate 18 03/05/2024 8:56 AM CDT Oxygen Saturation 92% 03/05/2024 8:56 AM CDT Inhaled Oxygen Concentration - - Weight 65.8 kg (145 lb) 03/05/2024 8:56 AM CDT Height 149.9 cm (4' 11 ) 03/05/2024 8:56 AM CDT Body Mass Index 29.29 03/05/2024 8:56 AM CDT documented in this encounter Progress Notes * Basilia Gomez MD - 03/05/2024 9:08 AM CDT HISTORY OF PRESENT ILLNESS Rhonda Devlin, a 43 y.o. female presents with a Chief Complaint of Weight Loss (Zepbound FollowUp) Subjective HPI Follow up weight/ Zepbound. She is not tolerating 7.5 mg dose- total loss of appetite, nauseous most of time. Should have done the 3rd injection yesterday but didn't due to SE. Has been riding her bike more regularly, with weather cooling off will go for walks Her goal weight is 135. At home her scale says 141. Diet good but has not been eating due to nausea REVIEW OF SYSTEMS Review of Systems Constitutional: Negative. Respiratory: Negative. Cardiovascular: Negative. Gastrointestinal: Positive for nausea. Negative for abdominal pain and diarrhea. Neurological: Negative for dizziness and weakness. HLD- reviewed lipid results today. Bad cholesterol LDL at goal but HDL remains low Lab Results Component Value Date/Time CHOLTOT 158 02/07/2024 09:06 AM CHOLTOT 208 (H) 08/16/2023 08:51 AM CHOLTOT 192 09/07/2022 10:28 AM HDL 39 (L) 02/07/2024 09:06 AM HDL 43 (L) 08/16/2023 08:51 AM HDL 38 (L) 09/07/2022 10:28 AM LDLCALC 99 02/07/2024 09:06 AM LDLCALC 141 (H) 08/16/2023 08:51 AM LDLCALC 130 (H) 09/07/2022 10:28 AM TRIGLYCERIDE 102 02/07/2024 09:06 AM TRIGLYCERIDE 119 08/16/2023 08:51 AM TRIGLYCERIDE 126 09/07/2022 10:28 AM Objective PHYSICAL EXAM BP 110/74 (BP Location: Left arm, Patient Position (BP): Sitting, BP Cuff Size: Adult) Pulse 86 Temp 97.8 ??F (36.6 ??C) (Tympanic) Resp 18 Ht 4' 11 (1.499 m) Wt 65.8 kg (145 lb) LMP 01/26/2024 (Exact Date) SpO2 92% BMI 29.29 kg/m?? Physical Exam Constitutional: General: She is not in acute distress. Neck: Thyroid: No thyroid mass, thyromegaly or thyroid tenderness. Cardiovascular: Rate and Rhythm: Normal rate and regular rhythm. Heart sounds: Normal heart sounds. Pulmonary: Effort: Pulmonary effort is normal. Breath sounds: Normal breath sounds. Abdominal: General: Bowel sounds are normal. There is no distension. Tenderness: There is no abdominal tenderness. Musculoskeletal: Right lower leg: No edema. Left lower leg: No edema. Skin: General: Skin is warm and dry. Neurological: General: No focal deficit present. Mental Status: She is alert. Psychiatric: Mood and Affect: Mood normal. Procedures Assessment ASSESSMENT and PLAN: ICD-10-CM ICD-9-CM 1. Overweight E66.3 278.02 Did not tolerate Zepbound 7.5 mg tirzepatide, weight loss, (Zepbound) 5 mg/0.5 mL Pen Injector Discussed importance of food intake- lean protein furits and veggies an whole grain Min 64 ounces water daily She is approaching goal weight/ end of Zepbound treatment soon- maintain healthy lifestyle 2. Mixed hyperlipidemia E78.2 272.2 Bad cholesterol LDL good good cholesterol HDL low- inc cardio 3. Screening for colon cancer Z12.11 V76.51 AMB REFERRAL TO GASTROENTEROLOGY 4. Need for qbvnjwngle-yktjytf-agbwqlmwu (Tdap) vaccine Z23 V06.1 Will obtain next visit 4 weeks. Short staff/ time constraints today documented in this encounter Plan of Treatment Scheduled Referrals Name Type Priority Associated Diagnoses Order Schedule AMB REFERRAL TO GASTROENTEROLOGY Outpatient Referral Routine Screening for colon cancer Ordered: 03/05/2024 documented as of this encounter Visit Diagnoses Diagnosis Overweight- Primary Mixed hyperlipidemia Screening for colon cancer Special screening for malignant neoplasms, colon Need for lwnwornhhd-monqhmn-otnrdrlps (Tdap) vaccine Need for prophylactic vaccination with combined ywmgazttkg-qjzqqmr-jckbognjb (DTP) vaccine documented in this encounter Additional Health Concerns Assessment Noted Time PHQ-9 Depression Total Score: 3 01/22/20 24 2:00 PM CDT documented as of this encounter Care Teams Abap Developer Relationship Specialty Start Date End Date Basilia Gomez MD [address] [place] [phone] PCP - General Internal Medicine 12/13/23 documented as of this encounter
--- OUTSIDE RECORDS SUMMARY | 2024-06-16 22:52 | XMS_ITS | Encounter Summary ---
Author Organization [facility] Address [address] [place] [address] Care Team Providers Care Data Control Assistant Name Role Phone Basilia Gomez MD Primary Care Provider Reason for Visit * Reason Comments Depression Anxiety Encounter Details Date Type Department Care Team (Late st Contact Info) Description 01/22/2024 2:00 PM CDT Video Visit [facility] at Work [employer] [place] [address] [place] [address] Leandro Paul [address] [place] [phone] Acute reaction to situational stress (Primary [...] encounter Progress Notes * Leandro Paul - 01/22/2024 2:46 PM CDT Collaborative Care - Follow Up Assessment Patient Name: Rhonda Devlin Date: 01/22/24 Length of Visit: 38 minutes Visit Type: Video PCP: Jason Physician Resident: Kanu Reason for Referral: Depression and stress Symptom Check Check-in: How have things been since our last session? Better Current Mood: Calm Sleep: Sleeps well Medication compliance: Yes Current Stressors: 's negativity Substance usage: na Progress towards Goals Goals: Regain optimism Effective coping with stressors What is going well? Refused to reschedule her 's appointment that he missed Any barriers to achieving your goal? Needs to not allow moods to be effected by others Mental Status Examination Rhonda Devlin presents as alert, vigilant. Her appearance is noted to be well groomed and appropriately dressed to season. Rhonda's behavior presents as calm and cooperative. Rhonda's eye contact is noted to be good. Speech is noted to be clear , organized, and normal rate and rhythm. Rhonda's thoughts are noted to be goal-directed and linear. She reports mood to be improving. Her affect is noted to be anxious. Insight and judgement are noted to be fair. Behavioral Health Measures Depression Screen Positive: PHQ-2 score >= 3 or PHQ-9 score >= 9 PHQ-2 Total: 3 (01/22/2024 2:00 PM) PHQ-9 Total: 6 (01/22/2024 2:00 PM) DEPRESSION PLAN OF CARE Her depression screen was positive. She is currently managed by Behavioral Health/Collaborative Care Anxiety Score: 6 (01/22/2024 2:00 PM) Provisional Diagnosis: Acute reaction to situational stress F43.0 Patient Summary: Rhonda updated the depression/anxiety scales: PHQ9 (6), GAD7 (6). She reported that she rescheduled her 's missed appointment, only to come home from her appointment and seehe was still in bed missing that rescheduled appointment. She avoided the temptation to reschedule for him again, which was improvement. She acknowledged that the negative consequences she imagined did not happen, and he accepted responsibility to reschedule his own appointment without any issues. Encouraged Rhonda that this was a small bu replicable example for future opportunities to not own others' issues. She stated that she believes she has allowed her 's depressed and negative moods dictate hers, and she is wanting to discontinue that. Challenged her to think back to things sheused to enjoy, but stopped doing as a result of her 's negativity, and we will discuss that at our next session. Plan: Rhonda will focus on improving their personal basics such as hydration, nutrition, medication compliance, sleep hygiene and movement/exercise. Schedule Follow Up: Next Appointment: 8/14/24 @ 2:30 PM by video Discuss with Psychiatric Foot Drill Operator? No This encounter was completed via two-way [...] documented as of this encounter Care Teams Data Control Assistant Relationship Specialty Start Date End Date Basilia Gomez MD [address] [place] [phone] PCP - General Internal Medicine 12/13/23 documented as of this encounter
--- OUTSIDE RECORDS SUMMARY | 2024-06-16 22:52 | XMS_ITS | Encounter Summary ---
Author Organization [facility] Address [address] [place] [address] Care Team Providers Care Enamel Burner Name Role Phone Basilia Gomez MD Primary Care Provider [phone] Encounter Details Date Type Department Care Team (Late st Contact Info) Description 05/26/2024 External Device Data STL ABSTRACTION Provider, Abstract [...] documented as of this encounter Care Teams Enamel Burner Relationship Specialty Start Date End Date Basilia Gomez MD [address] [place], [place] [address] [place] [address] PCP - General Internal Medicine 12/13/23 documented as of this encounter
--- OUTSIDE RECORDS SUMMARY | 2024-06-16 22:52 | XMS_ITS | Encounter Summary ---
Author Organization [employer] Address [address] [place] [address] Care Team Providers Care Herbicide Sprayer Name Role Phone Basilia Gomez MD Primary Care Provider [phone] Reason for Visit * Reason Comments Med Change Request Encounter Details Date Type Department Care Team ([facility] st Contact Info) Description 01/10/2024 Refill [facility] [employer] [place] [address] [place] [address] Basilia Gomez MD [address] [place] [address] Obesity (BMI 30.0-34.9) Social History Tobacco Use Types Packs/Day Years [...] on file documented as of this encounter Miscellaneous Notes * Telephone Encounter - Shira Anguiano - 01/10/2024 11:06 AM CDT Pharmacy is requesting for a new script to be sent to pharmacy. Wanting you to clarify the directions for the script. Sig stated 2.5mL documented in this encounter Plan of Treatment Not on file documented as of this encounter Visit Diagnoses Diagnosis Obesity (BMI 30.0-34.9) Obesity, unspecified documented in this encounter Additional Health Concerns Assessment Noted Time PHQ-9 Depression Total Score: 3 12/13/19 24 9:00 AM CDT documented as of this encounter Care Teams Herbicide Sprayer Relationship Specialty Start Date End Date Basilia Gomez MD [address] [place] [address] PCP - General Internal Medicine 12/13/23 documented as of this encounter
--- OUTSIDE RECORDS SUMMARY | 2024-06-16 22:52 | XMS_ITS | Encounter Summary ---
Author Organization [facility] Address [address] [place] [address] Care Team Providers Care Residential Direct Support Professional Name Role Phone Basilia Gomez MD Primary Care Provider [phone] Reason for Visit * Reason Comments Depression Anxiety Encounter Details Date Type Department Care Team (Late st Contact Info) Description 02/05/2024 2:30 PM CDT Video Visit [facility] [employer] [place] [address] [place] [address] [address] Leandro Paul [address] [place] [id number] Acute reaction to situational stress (Primary [...] encounter Progress Notes * Leandro Paul - 02/06/2024 9:37 AM CDT Collaborative Care - Follow Up Assessment Patient Name: Rhonda Devlin Date: 02/05/24 Length of Visit: 32 minutes Visit Type: Video PCP: Jason Reason for Referral: Depression and stress Symptom Check Check-in: How have things been since our last session? Struggling with fatigue Current Mood: Calm Sleep: Good Appetite: Not taking in enough calories due to weight loss medication Medication compliance: Not prescribed psychiatric medication Current Stressors: Bored, lonely Substance usage: na Progress towards Goals Goals: Regain optimism Effective coping with stressors What is going well? Did good reflective work on past interests and why she stopped them Any barriers to achieving your goal? Insufficient diet and low motivation for interests Mental Status Examination Rhonda Devlin presents as alert, vigilant. Her appearance is noted to be well groomed. Rhonda's behavior presents as calm and cooperative. Rhonda's eye contact is noted to be good. Speech is noted to be clear , organized, and normal rate and rhythm. Rhonda's thoughts are noted to be goal-directed and linear. She reports mood to be low. Her affect is noted to be flat. Insight and judgement are noted to be fair. Behavioral Health Measures Anxiety Score: 6 (01/22/2024 2:00 PM) Provisional Diagnosis: Acute reaction to situational stress F43.0 Patient Summary: Rhonda reports that she has been experiencing fatigue. She suggested one contributor could be that, even though she is eating better, she is not taking in enough calories, and thatis related to her taking Zepbound for weight loss. She also noted that her goes to work in the evening, so she is home alone most nights and likely feeling loneliness. We also discussed her assignment from the last session, to identify past interests that she no longer engages, partially because she allows herself to feel the lows her experiences from his depression. Rhonda listed both photography and playing the trumpet as previous passions that she followed because of her older brother. She said they were special to her because she admired him so much and wanted to do everything he did, and they shared those things together. However, when her brother took her mother's side in a past issue he stopped talking to her, and did not even invite her to a family gathering recently. She said she feels she lost interest and stopped those things because of their relationship ending. I pointed out that even though her brother was her inspiration for beginning those things, shecould not have been good at them unless she had those skills. She is therefore allowing her brotherto dictate her passions in the same way she is allowing her to dictate her emotions. She agreed with that connection and said she would consider trying to restart those activities for herselfthis time. Plan: Rhonda will focus on improving their personal basics such as hydration, nutrition, medication compliance, sleep hygiene and movement/exercise. Schedule Follow Up: Next Appointment: 02/26/24 @ 3 PM by video Discuss with Psychiatric Pressure Dispatcher? No This encounter was completed via two-way [...] documented as of this encounter Care Teams Residential Direct Support Professional Relationship Specialty Start Date End Date Basilia Gomez MD [address] [place] [phone] PCP - General Internal Medicine 12/13/23 documented as of this encounter
--- OUTSIDE RECORDS SUMMARY | 2024-06-16 22:52 | XMS_ITS | Encounter Summary ---
Author Organization [facility] Address [address] [place] [address] Care Team Providers Care Case Manager Specialist Name Role Phone Basilia Gomez MD Primary Care Provider [phone] Reason for Visit * Reason Comments Weight Check Patient is here to d iscuss medication for weight loss. Encounter Details Date Type Department Care Team (Late st Contact Info) Description 02/07/2024 8:30 AM CDT Office Visit [facility] [employer] [place] [address] [place] [address] Basilia Gomez MD [address] [place] [address] Obesity (BMI 30.0-34.9) (Primary Dx); Hyperlipidemia, unspecified hyperlipidemia type; Constipation, unspecified constipation type Social History Tobacco Use Types Packs/Day Years Used Date Smoking Tobacco: Never Smokeless Tobacco: Never Tobacco Cessation:Counseling Given: Not Answered Alcohol Use Standard Drinks/Week Comments No 0 [...] Sign Reading Time Taken Comments Blood Pressure 104/70 02/07/2024 8:33 AM CDT Pulse 81 02/07/2024 8:33 AM CDT Temperature 36.3 ??C (97.3 ??F) 02/07/2024 8:33 AM CD T Respiratory Rate 16 02/07/2024 8:33 AM CDT Oxygen Saturation 97% 02/07/2024 8:33 AM CDT Inhaled Oxygen Concentration - - Weight 67.9 kg (149 lb 9.6 oz) 02/07/2024 8:33 A M CDT Height 149.9 cm (4' 11 ) 02/07/2024 8:33 AM CDT Body Mass Index 30.22 02/07/2024 8:33 AM CDT documented in this encounter Progress Notes * Basilia Gomez MD - 02/07/2024 8:50 AM CDT HISTORY OF PRESENT ILLNESS Rhonda Devlin, a 43 y.o. female presents with a Chief Complaint of Weight Check (Patient is here to discuss medication for weight loss.) Subjective HPI Started back on Zepbound. First week fairly nauseated but this resolved. Appetite is way down but she is eating. Making healthy choices- lean protein- lots of fish and some chicken. Salads. Ongoing constipation- using magnesium pills and Miralax. Admits drinking more water than usual for her but only 32 ounces daily. Has struggled especially this past week to exercise. Motivation is very low. Seeing [facility]/collaborative care- discussing this REVIEW OF SYSTEMS Review of Systems Constitutional: Positive for appetite change. Respiratory: Negative. Cardiovascular: Negative. Gastrointestinal: Positive for constipation. Objective PHYSICAL EXAM BP 104/70 (BP Location: Left arm, Patient Position (BP): Sitting, BP Cuff Size: Adult) Pulse 81 Temp 97.3 ??F (36.3 ??C) (Tympanic) Resp 16 Ht 4' 11 (1.499 m) Wt 67.9 kg (149 lb 9.6 oz) LMP 01/26/2024 (Exact Date) SpO2 97% BMI 30.22 kg/m?? Physical Exam Neck: Thyroid: No thyromegaly. Cardiovascular: Rate and Rhythm: Normal rate and regular rhythm. Pulmonary: Effort: Pulmonary effort is normal. Breath sounds: Normal breath sounds. Abdominal: General: Bowel sounds are normal. Palpations: There is no mass. Tenderness: There is no abdominal tenderness. There is no guarding. Skin: General: Skin is warm. Coloration: Skin is not jaundiced. Neurological: Mental Status: She is alert. Psychiatric: Attention and Perception: Attention normal. Mood and Affect: Affect is flat. Procedures Assessment ASSESSMENT and PLAN: ICD-10-CM ICD-9-CM 1. Obesity (BMI 30.0-34.9) E66.9 278.00 tirzepatide, weight loss, (Zepbound) 7.5 mg/0.5 mL Pen Injector Encouraged her to exercise first thing in the morning so less likely to talk herself out of it. Shehas stationary bike 2. Hyperlipidemia, unspecified hyperlipidemia type E78.5 272.4 LIPID PANEL 3. Constipation, unspecified constipation type K59.00 564.00 Increase water intake to min 64 ounceswater daily. Ok to continue with magnesium and Miralax documented in this encounter Miscellaneous Notes * Result Encounter Note - Francie Phillips RN - 02/10/2024 2:40 PM CDT Pt read online [employer] message on vitamin d result. documented in this encounter Plan of Treatment Not on file documented as of this encounter Procedures Procedure Name Priority Date/Time Associated Diagnosis Comments VITAMIN D 25 HYDROXY Routine 02/07/2024 9:06 AM CDT LIPID PANEL Routine 02/07/2024 9:06 AM CDT Hyperlipidemia, unspecified hyperlipidemia type documented in this encounter Results * (ABNORMAL) VITAMIN D 25 HYDROXY (02/07/2024 9:06 AM CDT) [facility] VITAMIN D, 25 OH, TOTAL 29(L) 30 - 100 ng/mL [facility] Comment: Vitamin D Status ? 25-OH Vitamin D: Deficiency: ?<20 ng/mL Insufficiency: ? 20 - 29 ng/mL Optimal: ? > or = 30 ng/mL For 25-OH Vitamin D testing on patients on D2-supplementation and patients for whom quantitation of D2 and D3 fractions is required, the [facility](TM) 25-OH VIT D, (D2,D3), LC/MS/MS is recommended: order code 10256 (patients >2yrs). See Note 1 Note 1 For additional information, please refer to http://Embedly.Boost Communications/faq/QTM164 (This link is being provided for informational/ educational purposes only.) Test Performed at: [facility] [address] [place], [place] ??[phone] eKnny Arana MD Blood 02/07/2024 9:06 AM CDT 02/08/2024 5:52 AM CDT Basilia Gomez MD CHEMISTRY ORDERABLES [facility] [phone] [facility] [address] [place] [phone] * (ABNORMAL) LIPID PANEL (02/07/2024 9:06 AM CDT) CHOLESTEROL 158 <200 mg/dL [facility] HDL 39(L) > OR = 50 mg/dL [facility] TRIGLYCERIDE 102 <150 mg/dL [facility] LDL CALCULATED 99 mg/dL (calc) [facility] Comment: Reference range: <100 Desirable range <100 mg/dL for primary prevention; ?? <70 mg/dL for patients with CHD or diabetic patients with > or = 2 CHD risk factors. LDL-C is now calculated using the Daniel-Jose L calculation, which is a validated novel method providing better accuracy than the Friedewald equation in the estimation of LDL-C. Daniel SS et al. HENNY. 2013;310(19): 1582-7555 (http://education.Digly.Plainmark/faq/DVC377) CHOL/HDL RATIO 4.1 <5.0 (calc) [facility] NON-HDL CHOLESTEROL 119 <130 mg/dL (calc) [facility] Comment: For patients with diabetes plus 1 major ASCVD risk factor, treating to a non-HDL-C goal of <100 mg/dL (LDL-C of <70 mg/dL) is considered a therapeutic option. Test Performed at: [facility] [address] [place], [place] ??[phone] Kenny Arana MD Blood 02/07/2024 9:06 AM CDT 02/08/2024 5:51 AM CDT Basilia Gomez MD CHEMISTRY ORDERABLES [facility] [phone] [facility] [address] [place] [address] documented in this encounter Visit Diagnoses Diagnosis Obesity (BMI 30.0-34.9)- Primary Obesity, unspecified Hyperlipidemia, unspecified hyperlipidemia type Constipation, unspecified constipation type documented in this encounter Additional Health Concerns Assessment Noted Time PHQ-9 Depression Total Score: 3 01/22/20 24 2:00 PM CDT documented as of this encounter Care Teams Case Manager Specialist Relationship Specialty Start Date End Date Basilia Gomez MD [address] [place] [address] [place] [address] PCP - General Internal Medicine 12/13/23 documented as of this encounter
--- OUTSIDE RECORDS SUMMARY | 2024-06-16 22:52 | XMS_ITS | Encounter Summary ---
Author Organization [facility] Address [address] [place] [address] Care Team Providers Care Power Originator Name Role Phone Basilia Gomez MD Primary Care Provider [phone] Encounter Details Date Type Department Care Team (Late st Contact Info) Description 01/24/2024 Chart Note [facility] [employer] [place] [address] [place] [address] Leandro Paul [address] [place] [address] Social History Tobacco Use Types Packs/Day Years [...] encounter Progress Notes * Leandro Paul - 01/27/2024 3:05 PM CDT [facility] Psychiatric Staffing Consult and Review The consulting psychiatrist and behavioral health care managers met on 01/24/2024 for Rhonda. [facility] discussed Rohnda diagnosis, goals, progress being made, additional treatment options and any current issues. documented in this encounter Plan of Treatment Not on file documented as of this encounter Visit Diagnoses Not on filedocumented in this encounter Additional Health Concerns Assessment Noted Time PHQ-9 Depression Total Score: 3 01/22/20 24 2:00 PM CDT documented as of this encounter Care Teams Power Originator Relationship Specialty Start Date End Date Basilia Gomez MD [address] [place] [address] PCP - General Internal Medicine 12/13/23 documented as of this encounter
--- OUTSIDE RECORDS SUMMARY | 2024-06-16 22:52 | XMS_ITS | Encounter Summary ---
Author Organization [facility] Address [address] [place] [address] Care Team Providers Care Radiology Assistant Name Role Phone Basilia Gomez MD Primary Care Provider Reason for Referral * Radiology Services (Routine) - Open Specialty Diagnoses / Procedures Referred By Catracho aguilar Referred To Contact Diagnoses Abnormal mammogram of left breast Procedures MAMMO DIAGNOSTIC UNI LEFT W OR WO CAD Basilia Gomez MD [address] [place] [address] Referral ID Status Reason Start Date Expiration Date Visits Re quested Visits Authorized [id number] Open 01/09/2024 02/08/2025 1 1 Reason for Visit * Reason Onset Date Comments order request 01/09/2024 Encounter Details Date Type Department Care Team (Late st Contact Info) Description 01/09/2024 Telephone [facility] [place] [address] [employer] [facility] [place] [address] [place] [address] Basilia Gomez MD [address] [place] [address] order request Social History Tobacco Use Types Packs/Day Years [...] Miscellaneous Notes * Telephone Encounter - Shira Anguiaon - 01/09/2024 1:23 PM CDT Printed order and faxed over to [facility]. * Telephone Encounter - Basilia Gomez MD - 01/09/2024 1:22 PM CDT ordered * Telephone Encounter - Shira Anguiano - 01/09/2024 1:13 PM CDT [facility] imaging center contacting us needing us to order an additional diagnostic mammogram of left breast, since pt screening came back abnormal. Pt is scheduled tomorrow, requesting orderto be faxed over as soon as we can today. She said that they already received the ultrasound of breast order but are needing the additional order for pt to be able to come tomorrow. Please advise. (Diagnostic Mammogram Left Breast dx: Abnormal screening) documented in this encounter Plan of Treatment Scheduled Orders Name Type Priority Associated Diagnoses Orde r Schedule MAMMO DIAGNOSTIC UNI LEFT W OR WO CAD Imaging Routine Abnormal mammogram of left breast 1 Occurrences starting 01/09/2024 until 07/11/2025 documented as of this encounter Visit Diagnoses Diagnosis Abnormal mammogram of left breast- Primary documented in this encounter Additional Health Concerns Assessment Noted Time PHQ-9 Depression Total Score: 3 12/13/19 24 9:00 AM CDT documented as of this encounter Care Teams Radiology Assistant Relationship Specialty Start Date End Date Basilia Gomez MD [address] [place] [address] [place] [address] PCP - General Internal Medicine 12/13/23 documented as of this encounter
--- OUTSIDE RECORDS SUMMARY | 2024-06-16 22:52 | XMS_ITS | Encounter Summary ---
Author Organization [employer] Address [address] [place] [address] Care Team Providers Care Inspector Machine Cut Glass Name Role Phone Basilia Gomez MD Primary Care Provider [phone] Encounter Details Date Type Department Care Team (Late st Contact Info) Description 12/20/2023 Orders Only [facility] at [facility] [employer] [place] [address] [place] [address] Diallo Mahmood Breast cancer screening by mammogram Social History Tobacco Use Types Packs/Day Years [...] as of this encounter Miscellaneous Notes * Result Encounter Note - Shira Anguiano - 12/20/2023 3:26 PM CDT Pt reviewed her results using the [employer] portal. documented in this encounter Plan of Treatment Not on file documented as of this encounter Procedures Procedure Name Priority Date/Time Associated Diagnosis Comments MAMMO 3D CHU SCREEN BILAT W OR WO CAD Routine 12/20/2023 Breast cancer screening by mammogram documented in this encounter Results * MAMMO 3D CHU SCREEN BILAT W OR WO CAD (12/20/2023) Anatomical Region Laterality Modality Breast Bilateral Other Basilia Gomez MD MAMMO ORDERABLES documented in this encounter Visit Diagnoses Diagnosis Breast cancer screening by mammogram documented in this encounter Additional Health Concerns Assessment Noted Time PHQ-9 Depression Total Score: 3 12/13/19 24 9:00 AM CDT documented as of this encounter Care Teams Inspector Machine Cut Glass Relationship Specialty Start Date End Date Basilia Gomez MD [address] [place] [address] PCP - General Internal Medicine 12/13/23 documented as of this encounter
--- OUTSIDE RECORDS SUMMARY | 2024-06-16 22:52 | XMS_ITS | Encounter Summary ---
Author Organization [employer] [facility] Address [address] [place] [address] Care Team Providers Care Retail Wireless Sales Consultant Name Role Phone Basilia Gomez MD Primary Care Provider [phone] Encounter Details Date Type Department Care Team (Late st Contact Info) Description 01/13/2024 Orders Only [facility] [employer] [place] [address] [place] [address] Shira Anguiano Abnormal mammogram of left breast Social History Tobacco Use Types Packs/Day Years [...] Name Priority Date/Time Associated Diagnosis Comments MAMMO BREAST US LT COMPLETE Routine 01/13/2024 1:45 PM CDT Abnormal mammogram of left breast documented in this encounter Results * MAMMO BREAST US LT COMPLETE (01/13/2024 1:45 PM CDT) Anatomical Region Laterality Modality Breast Left Other Basilia Gomez MD MAMMO ORDERABLES documented in this encounter Visit Diagnoses Diagnosis Abnormal mammogram of left breast documented in this encounter Additional Health Concerns Assessment Noted Time PHQ-9 Depression Total Score: 3 12/13/19 24 9:00 AM CDT documented as of this encounter Care Teams Retail Wireless Sales Consultant Relationship Specialty Start Date End Date Basilia Gomez MD [address] [place] [address] PCP - General Internal Medicine 12/13/23 documented as of this encounter
--- OUTSIDE RECORDS SUMMARY | 2024-06-16 22:52 | XMS_ITS | Encounter Summary ---
Author Organization [facility] Address [address] [place] [address] Care Team Providers Care Fruit Worker Name Role Phone Basilia Gomez MD Primary Care Provider [phone] Reason for Visit * Reason Comments mood Weight Check 4 wk fu Encounter Details Date Type Department Care Team ([facility] st Contact Info) Description 01/10/2024 8:00 AM CDT Office Visit [facility] at Work [employer] [place] [address] [place] [address] Basilia Gomez MD [address] [place] [address] Obesity (BMI 30.0-34.9) (Primary Dx); Hyperlipidemia, unspecified hyperlipidemia type; Vitamin D deficiency; Mild depression Social History Tobacco Use Types Packs/Day Years [...] Sign Reading Time Taken Comments Blood Pressure 110/82 01/10/2024 8:01 AM CDT Pulse 79 01/10/2024 8:01 AM CDT Temperature 36.7 ??C (98.1 ??F) 01/10/2024 8:01 AM CD T Respiratory Rate 18 01/10/2024 8:01 AM CDT Oxygen Saturation 98% 01/10/2024 8:01 AM CDT Inhaled Oxygen Concentration - - Weight 70.3 kg (155 lb) 01/10/2024 8:01 AM CDT Height 149.9 cm (4' 11 ) 01/10/2024 8:01 AM CDT Body Mass Index 31.31 01/10/2024 8:01 AM CDT documented in this encounter Progress Notes * Basilia Gomez MD - 01/10/2024 8:23 AM CDT HISTORY OF PRESENT ILLNESS Rhonda Devlin, a 43 y.o. female presents with a Chief Complaint of mood and Weight Check (4 wk fu) Subjective HPI Was able to locate Zepbound 2.5 and get started. No SE. Does not feel is has been as effective in altering her appetite as previously Mood- Meeting with [employer]. Did discuss trial of SSRI as discussed at her last OFFICE VISIT with me. They feel they would like to hold off for now and see with counseling alone she can continue to make progress REVIEW OF SYSTEMS Review of Systems Respiratory: Negative. Cardiovascular: Negative. Gastrointestinal: Negative. Fatigue, low motivation better Objective PHYSICAL EXAM BP 110/82 (BP Location: Left arm, Patient Position (BP): Sitting, BP Cuff Size: Adult) Pulse 79 Temp 98.1 ??F (36.7 ??C) (Tympanic) Resp 18 Ht 4' 11 (1.499 m) Wt 70.3 kg (155 lb) SpO2 98% BMI 31.31 kg/m?? Physical Exam Constitutional: Appearance: She is obese. Cardiovascular: Rate and Rhythm: Normal rate and regular rhythm. Pulmonary: Effort: Pulmonary effort is normal. Breath sounds: Normal breath sounds. Abdominal: General: Bowel sounds are normal. Tenderness: There is no abdominal tenderness. Neurological: Mental Status: She is alert. Psychiatric: Mood and Affect: Mood normal. Affect is flat. Procedures Assessment ASSESSMENT and PLAN: ICD-10-CM ICD-9-CM 1. Obesity (BMI 30.0-34.9) E66.9 278.00 tirzepatide, weight loss, (Zepbound) 5 mg/0.5 mL Pen Injector 2. Hyperlipidemia, unspecified hyperlipidemia type E78.5 272.4 LIPID PANEL 3. Vitamin D deficiency E55.9 268.9 VITAMIN D 25 HYDROXY 4. Mild depression F32.A 311 Continue with Collaborative Care Hold off on SSRI documented in this encounter Plan of Treatment Not on file documented as of this encounter Results * (ABNORMAL) LIPID PANEL (02/07/2024 9:06 AM CDT) CHOLESTEROL 158 <200 mg/dL [facility] HDL 39(L) > OR = 50 mg/dL [facility] TRIGLYCERIDE 102 <150 mg/dL [facility] LDL CALCULATED 99 mg/dL (calc) [facility] Comment: Reference range: <100 Desirable range <100 mg/dL for primary prevention; ?? <70 mg/dL for patients with CHD or diabetic patients with > or = 2 CHD risk factors. LDL-C is now calculated using the Daniel-Domingo calculation, which is a validated novel method providing better accuracy than the Friedewald equation in the estimation of LDL-C. Daniel SS et al. HENNY. 2013;310(19): 9118-5449 (http://education.FilmLoop/faq/GEO686) CHOL/HDL RATIO 4.1 <5.0 (calc) [facility] NON-HDL CHOLESTEROL 119 <130 mg/dL (calc) [facility] Comment: For patients with diabetes plus 1 major ASCVD risk factor, treating to a non-HDL-C goal of <100 mg/dL (LDL-C of <70 mg/dL) is considered a therapeutic option. Test Performed at: [facility] [address] [facility] [place] ??[phone] Kenny Arana MD Blood 02/07/2024 9:06 AM CDT 02/08/2024 5:51 AM CDT Basilia Gomez MD CHEMISTRY ORDERABLES [facility] [phone] [facility] [address] [place] [phone] * (ABNORMAL) VITAMIN D 25 HYDROXY (02/07/2024 9:06 AM CDT) VITAMIN D, 25 OH, TOTAL 29(L) 30 - 100 ng/mL [facility] Comment: Vitamin D Status ? 25-OH Vitamin D: Deficiency: ?<20 ng/mL Insufficiency: ? 20 - 29 ng/mL Optimal: ? > or = 30 ng/mL For 25-OH Vitamin D testing on patients on D2-supplementation and patients for whom quantitation of D2 and D3 fractions is required, the QuestAssure[facility](TM) 25-OH VIT D, (D2,D3), LC/MS/MS is recommended: order code 92392 (patients >2yrs). See Note 1 Note 1 For additional information, please refer to http://education.FilmLoop/faq/JOJ037 (This link is being provided for informational/ educational purposes only.) Test Performed at: [facility] [address] [place], [place] ??[phone] Kenny Arana MD Blood 02/07/2024 9:06 AM CDT 02/08/2024 5:52 AM CDT Basilia Gomez MD CHEMISTRY ORDERABLES [facility] [phone] [facility] [address] [place] [address] documented in this encounter Visit Diagnoses Diagnosis Obesity (BMI 30.0-34.9)- Primary Obesity, unspecified Hyperlipidemia, unspecified hyperlipidemia type Vitamin D deficiency Unspecified vitamin D deficiency Mild depression Depressive disorder, not elsewhere classified documented in this encounter Additional Health Concerns Assessment Noted Time PHQ-9 Depression Total Score: 3 12/13/19 24 9:00 AM CDT documented as of this encounter Care Teams Fruit Worker Relationship Specialty Start Date End Date Basilia Gomez MD [address] [place] [phone] PCP - General Internal Medicine 12/13/23 documented as of this encounter
--- OUTSIDE RECORDS SUMMARY | 2024-06-16 22:52 | XMS_ITS | Encounter Summary ---
Author Organization [facility] Address [address] [place] [address] Care Team Providers Care Clothing Man Name Role Phone Basilia Gomez MD Primary Care Provider [phone] Encounter Details Date Type Department Care Team (Late st Contact Info) Description 12/23/2023 Orders Only [facility] at Work [place] [address] [place] [address] Shira Anguiano Abnormal mammogram of [...] Name Priority Date/Time Associated Diagnosis Comments MAMMO DIAGNOSTIC UNI LEFT W OR WO CAD Routine 12/20/2023 Abnormal mammogram of left breast documented in this encounter Results * MAMMO DIAGNOSTIC UNI LEFT W OR WO CAD (12/20/2023) Anatomical Region Laterality Modality Breast Left Other Basilia Gomez MD MAMMO ORDERABLES documented in this encounter Visit Diagnoses Diagnosis Abnormal mammogram of left breast documented in this encounter Additional Health Concerns Assessment Noted Time PHQ-9 Depression Total Score: 3 12/13/19 24 9:00 AM CDT documented as of this encounter Care Teams Clothing Man Relationship Specialty Start Date End Date Basilia Gomez MD [address] [place] [address] PCP - General Internal Medicine 12/13/23 documented as of this encounter
--- OUTSIDE RECORDS SUMMARY | 2024-06-16 22:52 | XMS_ITS | Encounter Summary ---
Author Organization [facility] Address [address] [place] [address] Care Team Providers Care Criminal Records Technician Name Role Phone Basilia Gomez MD Primary Care Provider [phone] Encounter Details Date Type Department Care Team (Late st Contact Info) Description 02/12/2024 External Device Data STL ABSTRACTION Provider, Abstract [...] documented as of this encounter Care Teams Criminal Records Technician Relationship Specialty Start Date End Date Basilia Gomez MD [address] [place], [place] [address] [place] [address] PCP - General Internal Medicine 12/13/23 documented as of this encounter
--- OUTSIDE RECORDS SUMMARY | 2024-06-16 22:52 | XMS_ITS | Encounter Summary ---
Author Organization [employer] [facility] Address [address] [place] [address] Care Team Providers Care Medicine Assistant Name Role Phone Basilia Gomez MD Primary Care Provider [phone] Encounter Details Date Type Department Care Team (Late st Contact Info) Description 04/12/2024 Chart Note [facility] at Work [employer] [place] [address] [place] [address] Leandro Paul [address] [place] [address] Social History Tobacco Use Types [...] encounter Progress Notes * Leandro Paul - 04/12/2024 10:37 PM CDT [facility] - Discharge Rhonda has missed her last appointment for discharge and unable to reach to reschedule the appt. She can be referred to the program again at anytime. Encouraged patient to reach out to myself or PCP if there is a need for the in [facility] program in the future. Rhonda has been discharged from [facility]. documented in this encounter Plan of Treatment Not on file documented as of this encounter Visit Diagnoses Not on filedocumented in this encounter Additional Health Concerns Assessment Noted Time PHQ-9 Depression Total Score: 3 01/22/20 24 2:00 PM CDT documented as of this encounter Care Teams Medicine Assistant Relationship Specialty Start Date End Date Basilia Gomez MD [address] [place] [address] PCP - General Internal Medicine 12/13/23 documented as of this encounter
--- OUTSIDE RECORDS SUMMARY | 2024-06-16 22:52 | XMS_ITS | Encounter Summary ---
Author Organization [facility] Address [address] [place] [address] Care Team Providers Care Trench Pipe Layer Name Role Phone Basilia Gomez MD Primary Care Provider [phone] Encounter Details Date Type Department Care Team [...] documented as of this encounter Care Teams Trench Pipe Layer Relationship Specialty Start Date End Date Basilia Gomez MD [address] [place], [place] [address] [place] [address] PCP - General Internal Medicine 12/13/23 documented as of this encounter
--- OUTSIDE RECORDS SUMMARY | 2024-06-16 22:52 | XMS_ITS | Encounter Summary ---
Author Organization [facility] Address [address] [place] [address] Care Team Providers Care Ict Programmer Name Role Phone Basilia Gomez MD Primary Care Provider [phone] Encounter Details Date Type Department Care Team [...] documented as of this encounter Care Teams Ict Programmer Relationship Specialty Start Date End Date Basilia Gomez MD [address] [place], [place] [address] [place] [address] PCP - General Internal Medicine 12/13/23 documented as of this encounter
--- OUTSIDE RECORDS SUMMARY | 2024-06-16 22:52 | XMS_ITS | Encounter Summary ---
Author Organization [facility] Address [address] [place] [address] Care Team Providers Care Tube Cutter Name Role Phone Basilia Gomez MD Primary Care Provider [phone] Encounter Details Date Type Department Care Team [...] documented as of this encounter Care Teams Tube Cutter Relationship Specialty Start Date End Date Basilia Gomez MD [address] [place], [place] [address] [place] [address] PCP - General Internal Medicine 12/13/23 documented as of this encounter
--- OUTSIDE RECORDS SUMMARY | 2024-06-16 22:52 | XMS_ITS | Encounter Summary ---
Author Organization [employer] Address [address] [place] [address] Care Team Providers Care Marketing Communications Associate Name Role Phone Basilia Gomez MD Primary Care Provider [phone] Reason for Visit * Reason Onset Date Comments order request 12/24/2023 Encounter Details Date Type Department Care Team (Late st Contact Info) Description 12/24/2023 Telephone [facility] at Work [employer] [place] [address] [address] Basilia Gomez MD [address] [place] [address] order request Social History Tobacco [...] * Telephone Encounter - Shira Anguiano - 12/24/2023 1:19 PM CDT Received a call from [facility], requesting for us to fix the order on the mammogram that was ordered. They would like us to send a new order over. Diagnostic mammogram Left side with ultrasound. We can fax this new order over to [phone] documented in this encounter Plan of Treatment Not on file documented as of this encounter Visit Diagnoses Not on filedocumented in this encounter Additional Health Concerns Assessment Noted Time PHQ-9 Depression Total Score: 3 12/13/19 24 9:00 AM CDT documented as of this encounter Care Teams Marketing Communications Associate Relationship Specialty Start Date End Date Basilia Gomez MD [address] [place] [address] PCP - General Internal Medicine 12/13/23 documented as of this encounter
--- OUTSIDE RECORDS SUMMARY | 2024-06-16 22:52 | XMS_ITS | Clinical Summary ---
Author Organization [facility] Address [address] [place] [address] Care Team Providers Care Advertising Representative Name Role Phone Basilia Gomez MD Primary Care Provider [phone] Allergies Active Allergy Reactions Criticality Noted Date Comments Ampicillin Rash Low 12/28/2015 Medications Medication Sig Dispensed Refills Start Date End Date Status tirzepatide, weight loss, (Zepbound) 5 mg/0.5 mL Pen InjectorIndications :Overweight Inject 5 mg by subcutaneous injection every 7 days. 2 mL 03/05/2024 Active Active Problems Problem Noted Date Diagnosed Date Severe obesity (BMI 35.0-39.9) with comorbidity 09/19/2023 Constipation 09/19/2023 Mild depression 09/19/2023 Nephrotic syndrome 12/28/2015 Overview (01/16/2016): F/u with medical stenographer q 3 months. Resolved Problems Problem Noted Date Diagnosed Date Resolved Date Weight gain 02/05/2019 09/19/2023 Edema 12/28/2015 05/02/2022 Encounters Date Type Department Care Team Description 05/26/2024 External Device Data STL ABSTRACTION Provider, Abstract 04/28/2024 External Device Data STL ABSTRACTION Provider, Abstract 04/12/2024 Chart Note [facility] at Work [employer] [facility] [address] [place] [address] Leandro Paul 04/07/2024 Telephone [facility] at Work [facility] [address] [place] [address] Leandro Paul [facility] App[facility] (3rd contact to reschedule appointment. Left message.) 03/31/2024 9:00 AM CDT Office Visit [facility] at [facility] [place] [address] [place] [address] Basilia Gomez MD Overweight (BMI 25.0-29.9) (Primary Dx); Mixed hyperlipidemia; Vitamin D deficiency; Need for diphtheria-tetanus- pertussis (Tdap) vaccine; Screening for colon cancer 03/30/2024 Telephone [facility] at [facility] [employer] [address] [address] Leandro Paul [facility] [place] App[facility] (2nd contact to reschedule missed appointment. Left message.) from Last 3 Months Immunizations Name Administration Dates Next Due (ADACEL/BOOSTRIX)(10 YR UP) TDAP VACCINE, 0.5ML, IM 03/31/2024,06/24/2012 (PNEUMOVAX 23)(50 YRS UP) PN EUMOCOCCAL POLYSACCHARIDE (PPV23) 0.5 ML, IM 11/21/2016 Family History Medical History Relation Name Comments No Known Problems Brother Depression Daughter Terri Other Daughter Terri PCOS Hypertension Father Shaquille Kidney Disease Father Shaquille Sudden Father Shaquille Heart Disease Maternal Grandfather Van Ahuja Stroke Maternal Grandfather Van Ahuja Heart Failure Maternal Grandmother No Known Problems Mother Sudden Paternal Grandfather Stroke Sister 1 Flaca Lee No Known Problems Sister 2 Depression Son Ion Relation Name Status Comments Brother Alive Daughter Terri Alive Father Shaquille Maternal Grandfather [place] Ahuja Maternal Grandmother Mother Alive Paternal Grandfather Paternal Grandmother Alive Sister 1 Flaca Lee Alive Sister 2 Alive Son Ion Alive Social History Tobacco Use Types Packs/Day Years [...] file Not on file Not on file Last Filed Vital Signs Vital Sign Reading Time Taken Comments Blood Pressure 108/68 03/31/2024 9:13 AM CDT Pulse 67 03/31/2024 9:13 AM CDT Temperature 36.6 ??C (97.8 ??F) 03/31/2024 9:13 AM CD T Respiratory Rate 18 03/31/2024 9:13 AM CDT Oxygen Saturation 93% 03/31/2024 9:13 AM CDT Inhaled Oxygen Concentration - - Weight 64.9 kg (143 lb) 03/31/2024 9:13 AM CDT Height 149.9 cm (4' 11 ) 03/31/2024 9:13 AM CDT Body Mass Index 28.88 03/31/2024 9:13 AM CDT Plan of Treatment Health Maintenance Due Date Last Done Comments HEPATITIS B VACCINES (1 of 3 - 19+ 3-dose series) 1997 PNEUMOCOCCAL VACCINE 0-64 YEARS (2 of 2 - PCV) 11/21/2017 11/21/2016 COLORECTAL SCREENING 10/14/2023 FIT-DNA Q 3 years 10/14/2023 FIT/FOBT Q 1 year 10/14/2023 Flex Sig/CT Colonography Q 5 years 10/14/2023 INFLUENZA VACCINE (#1) 2024 05/02/2022 CERVICAL CANCER SCREENING 06/23/20242016 (Previously completed) Postponed from 06/24/2019 (Patient Request) Colorectal Cancer Screening 12/12/2024 Postponed from 10/14/2023 (Patient Refused) BREAST CANCER SCREENING 12/19/2024 12/20/19 24, 12/20/2023 Pre-Diabetes and Diabetes Screening 05/02/2025 05/02/2022 DTAP/TDAP/TD VACCINES (3 - T d or Tdap) 03/31/2034 03/31/2024, 06/24/2012 HPV VACCINES Aged Out No longer eligi ble based on patient's age to complete this topic Procedures Procedure Name Priority Date/Time Associated Diagnosis Comments MAMMO 3D CHU SCREEN BILAT W OR WO CAD Routine 12/20/2023 Breast cancer screening by mammogram HEMOGLOBIN A1C Routine 05/02/2022 2:04 PM BEHAVIORAL THERAPY COORDINATOR Nephrotic syndrome from Last 3 Months or Most Recently Relevant to Health Maintenance Results * MAMMO 3D CHU SCREEN BILAT W OR WO CAD (12/20/2023) Anatomical Region Laterality Modality Breast Bilateral Other Basilia Gomez MD MAMMO ORDERABLES * HEMOGLOBIN A1C (05/02/2022 2:04 PM BEHAVIORAL THERAPY COORDINATOR) HEMOGLOBIN A1C 4.4 <5.7 % of total Hgb [facility] Comment: For the purpose of screening for the presence of diabetes: <5.7% ? Consistent with the absence of diabetes 5.7-6.4% ?Consistent with increased risk for diabetes ?(prediabetes) > or =6.5% ??Consistent with diabetes This assay result is consistent with a decreased risk of diabetes. Currently, no consensus exists regarding use of hemoglobin A1c for diagnosis of diabetes in children. According to [place] Diabetes Association (ADA) guidelines, hemoglobin A1c <7.0% represents optimal control in non- diabetic patients. Different metrics may apply to specific patient populations. Standards of Medical Care in Diabetes(ADA). ?? ESTIMATED AVERAGE GLUCOSE (MG/DL) 80 mg/dL [facility] ESTIMATED AVERAGE GLUCOSE (MMOL/L) 4.4 mmol/L [facility] Comment: Test Performed at: [email or web address] [address] [place], [place] ??[phone] Bernardo Augustin D.O., MPH Blood 05/02/2022 2:04 PM BEHAVIORAL THERAPY COORDINATOR 05/03/2022 6:29 AM BEHAVIORAL THERAPY COORDINATOR Soheila Romero MD CHEMISTRY ORDERABLES [facility] [phone] [facility] [address] [place] [address] from Last 3 Months or Most Recently Relevant to Health Maintenance Care Teams Advertising Representative Relationship Specialty Start Date End Date Basilia Gomez MD [address] [place] [address] PCP - General Internal Medicine 12/13/23
--- OUTSIDE RECORDS SUMMARY | 2024-06-16 22:52 | XMS_ITS | Encounter Summary ---
Author Organization [facility] Address [address] [place] [address] Care Team Providers Care Career Services Manager Name Role Phone Basilia Gomez MD Primary Care Provider [phone] Reason for Visit * Reason Onset Date Comments [facility] Appt 04/07/2024 3rd contact to r escrachaelule appointment. Left message. Encounter Details Date Type Department Care Team ([facility] st Contact Info) Description 04/07/2024 Telephone [facility] at Work [employer] [place] [address] [place] [address] Leandro Paul [address] [place] [address] [facility] [place] Appt (3rd contact to reschedule appointment. Left message.) Social History Tobacco Use [...] documented as of this encounter Care Teams Career Services Manager Relationship Specialty Start Date End Date Basilia Gomez MD [address] [address] PCP - General Internal Medicine 12/13/23 documented as of this encounter
--- OUTSIDE RECORDS SUMMARY | 2024-06-16 22:52 | XMS_ITS | Encounter Summary ---
Author Organization [facility] Address [address] [place] [address] Care Team Providers Care Pet Feeder Name Role Phone Basilia Gomez MD Primary Care Provider Encounter Details Date Type Department Care Team (Late st Contact Info) Description 03/10/2024 External Device Data STL ABSTRACTION Provider, Abstract [...] documented as of this encounter Care Teams Pet Feeder Relationship Specialty Start Date End Date Basilia Gomez MD [address] [place], [place] [address] [place] [address] PCP - General Internal Medicine 12/13/23 documented as of this encounter
--- OUTSIDE RECORDS SUMMARY | 2024-06-16 22:52 | XMS_ITS | Encounter Summary ---
Author Organization [facility] Address [address] [place] [address] Care Team Providers Care Director Of Athletics Name Role Phone Basilia Gomez MD Primary Care Provider [phone] Reason for Referral * Eval and Treat (Routine) - Open Specialty Diagnoses / Procedures Referred By Catracho aguilar Referred To Contact Gastroenterology Diagnoses Screening for colon cancer colon Procedures MT OFFICE/OUTPATIENT ESTABLISHED MOD MDM 30 MIN MT OFFICE/OUTPATIENT NEW MODERATE MDM 45 MINUTES colon Basilia Gomez MD [address] [place] [address] [facility] [address] [place] [address] Referral ID Status Reason Start Date Expiration Date Visits Requested Visits Authorized [id number] Open Performing Department to Schedule 03/31/2024 03/31/2025 1 1 Reason for Visit * Reason Comments Zepbound Follow Up Dizzy spells for 2-3 days after the last two injections Encounter Details Date Type Department Care Team (Late st Contact Info) Description 03/31/2024 9:00 AM CDT Office Visit [facility] at Work [employer] [place] [address] [place] [address] Basilia Gomez MD [address] [place] [address] Overweight (BMI 25.0-29.9) (Primary Dx); Mixed hyperlipidemia; Vitamin D deficiency; Need for mewwkfecln-ttchalz-e ertussis (Tdap) vaccine; Screening for colon cancer Social History Tobacco Use Types Packs/Day Years [...] Mass Index 28.88 03/31/2024 9:13 AM CDT documented in this encounter Progress Notes * Basilia Gomez MD - 03/31/2024 9:26 AM CDT HISTORY OF PRESENT ILLNESS Rhonda Devlin, a 43 y.o. female presents with a Chief Complaint of Zepbound Follow Up (Dizzy spells for 2-3 days after the last two injections) Subjective HPI Still struggling with snack in evening- trying to choose healthier snack to clench sweet tooth Riding milabent bike 3x week, sometimes 4 Zepbound- denies GI issues but has felt dizzy after taking. Off balance sensation for 2 days. Denies sinus congestion, drainage or other uri symptoms REVIEW OF SYSTEMS Review of Systems Constitutional: Negative. HENT: Negative. Respiratory: Negative. Cardiovascular: Negative. Gastrointestinal: Negative. Neurological: Positive for dizziness. Negative for syncope, weakness, numbness and headaches. Objective PHYSICAL EXAM BP 108/68 (BP Location: Left arm, Patient Position (BP): Sitting, BP Cuff Size: Adult) Pulse 67 Temp 97.8 ??F (36.6 ??C) (Tympanic) Resp 18 Ht 4' 11 (1.499 m) Wt 64.9 kg (143 lb) LMP 03/17/2024 SpO2 93% BMI 28.88 kg/m?? Physical Exam Constitutional: General: She is not in acute distress. Neck: Thyroid: No thyromegaly. Vascular: No carotid bruit. Cardiovascular: Rate and Rhythm: Normal rate and regular rhythm. Heart sounds: Normal heart sounds. Pulmonary: Effort: Pulmonary effort is normal. Breath sounds: Normal breath sounds. Abdominal: General: Bowel sounds are normal. There is no distension. Palpations: Abdomen is soft. Tenderness: There is no abdominal tenderness. Lymphadenopathy: Cervical: No cervical adenopathy. Skin: General: Skin is warm and dry. Neurological: General: No focal deficit present. Mental Status: She is alert. Procedures Assessment ASSESSMENT and PLAN: ICD-10-CM ICD-9-CM 1. Overweight (BMI 25.0-29.9) E66.3 278.02 Finish remaining Zepbound from last prescription. BMI now 28- Continue healthy lifestyle choices of diet and regular exercise 2. Mixed hyperlipidemia E78.2 272.2 All parameters at goal with exception of low HDL. Encouraged her to further increase her cardio activity 3. Vitamin D deficiency E55.9 268.9 Increase daily Vit D3 by 1000 IU daily 4. Need for buwcheurwt-xwybgca-lowuxtijx (Tdap) vaccine Z23 V06.1 (ADACEL/BOOSTRIX)(10 YR UP) TDAP VACCINE, IM 5 Screening for colon cancer Z12.11 V76.51 AMB REFERRAL TO GASTROENTEROLOGY documented in this encounter Plan of Treatment Scheduled Referrals Name Type Priority Associated Diagnoses Order Schedule AMB REFERRAL TO GASTROENTEROLOGY Outpatient Referral Routine Screening for colon cancer Ordered: 03/31/2024 documented as of this encounter Visit Diagnoses Diagnosis Overweight (BMI 25.0-29.9)- Primary Overweight Mixed hyperlipidemia Vitamin D deficiency Unspecified vitamin D deficiency Need for wxdchtvboj-axyvldp-thdxnpeox (Tdap) vaccine Need for prophylactic vaccination with combined yokkeannyp-grvxebm-bdulprffz (DTP) vaccine Screening for colon cancer Special screening for malignant neoplasms, colon documented in this encounter Additional Health Concerns Assessment Noted Time PHQ-9 Depression Total Score: 3 01/22/20 24 2:00 PM CDT documented as of this encounter Care Teams Director Of Athletics Relationship Specialty Start Date End Date Basilia Gomez MD [address] [place] [address] PCP - General Internal Medicine 12/13/23 documented as of this encounter
--- OUTSIDE RECORDS SUMMARY | 2024-06-16 22:52 | XMS_ITS | Encounter Summary ---
Author Organization [facility] Address [address] [place] [address] Care Team Providers Care Manager Product Management Name Role Phone Basilia Gomez MD Primary Care Provider [phone] Encounter Details Date Type Department Care Team (Late st Contact Info) Description 02/11/2024 External Device Data [facility] ABSTRACTION Provider, Abstract [...] documented as of this encounter Care Teams Manager Product Management Relationship Specialty Start Date End Date Basilia Gomez MD [address] [place], [place] [address] [place] [address] PCP - General Internal Medicine 12/13/23 documented as of this encounter
--- OUTSIDE RECORDS SUMMARY | 2024-06-16 22:52 | XMS_ITS | Encounter Summary ---
Author Organization [employer] Address [address] [place] [address] Care Team Providers Care Manager Leadership Development Name Role Phone Basilia Gomez MD Primary Care Provider [phone] Reason for Visit * Reason Onset Date Comments [employer] [place] Appt 03/30/2024 2nd contact to r maryule missed appointment. Left message. Encounter Details Date Type Department Care Team (Late st Contact Info) Description 03/30/2024 Telephone [facility] at Work [email or web address] [place] [address] [address] Leandro Paul [address] [place] [address] [employer] Appt (2nd contact to reschedule [...] as of this encounter Care Teams Manager Leadership Development Relationship Specialty Start Date End Date Basilia Gomez MD [address] [place] [address] PCP - General Internal Medicine 12/13/23 documented as of this encounter
--- OUTSIDE RECORDS SUMMARY | 2024-06-16 22:53 | XMS_ITS | Encounter Summary ---
Author Organization [facility] Address [address] [place] [address] Care Team Providers Care Transportation Assistant Name Role Phone Adalberto Morgan MD Primary Care Provider Reason for Visit * Reason Comments Procedure Encounter Details Date Type Department Care Team (Late st Contact Info) Description 02/06/2019 2:30 PM CDT Office Visit [facility] at Work [employer] [address] [place] [address] Pam Graves, NEETA [address] [facility] [address] [place] [address] Pyogenic granuloma (Primary Dx); Bleeding pigmented skin lesion Social History Tobacco Use Types Packs/Day Years [...] Sign Reading Time Taken Comments Blood Pressure 108/78 02/06/2019 2:34 PM CDT Pulse 73 02/06/2019 2:34 PM CDT Temperature 37.2 ??C (99 ??F) 02/06/2019 2:34 PM CDT Respiratory Rate 16 02/06/2019 2:34 PM CDT Oxygen Saturation 98% 02/06/2019 2:34 PM CDT Inhaled Oxygen Concentration - - Weight 68 kg (150 lb) 02/06/2019 2:34 PM CDT Height 151.1 cm (4' 11.5 ) 02/06/2019 2:34 PM CD T Body Mass Index 29.79 02/06/2019 2:34 PM CDT documented in this encounter Progress Notes * Pam Graves, NEETA - 02/06/2019 9:05 AM CDTAssociated Order(s): General Procedure Post-Procedure Diagnose(s): Bleeding pigmented skin lesion Images from the original note were not included. HISTORY OF PRESENT ILLNESS Rhonda Devlin is a 38 y.o. female who presents for Chief Complaint Patient presents with ??? Procedure Here for excision of lesion to left thigh. Past Medical History: Diagnosis Date ??? History of blood transfusion 06/24/2005 ??? Kidney stone 06/24/2011 ??? Nephrotic syndrome 06/24/2005 ??? Nephrotic syndrome 06/24/2012 ??? Nephrotic syndrome 12/12/2015 ??? Vaginal delivery 11/19/1999 ??? Vaginal delivery 02/09/2002 Current Outpatient Medications Medication Sig Dispense Refill ??? ergocalciferol (VITAMIN D2) 50,000 unit capsule Take 1 Capsule (50,000 Units) by mouth every 7 days. 12 Capsule 3 ??? lisinopril (PRINIVIL) 5 mg tablet 1/2 tab daily. 90 Tablet 0 No current facility-administered medications for this visit. Allergies Allergen Reactions ??? Ampicillin Rash BP 108/78 (BP Location: Left arm, Patient Position (BP): Sitting, BP Cuff Size: Adult) Pulse 73 Temp 99 ??F (37.2 ??C) (Tympanic) Resp 16 Ht 4' 11.5 (1.511 m) Wt 68 kg (150 lb) LMP 01/13/2019 SpO2 98% BMI 29.79 kg/m?? MEDICAL RECORD UPDATE Past Medical History: Diagnosis Date ??? History of blood transfusion 06/24/2005 ??? Kidney stone 06/24/2011 ??? Nephrotic syndrome 06/24/2005 ??? Nephrotic syndrome 06/24/2012 ??? Nephrotic syndrome 12/12/2015 ??? Vaginal delivery 11/19/1999 ??? Vaginal delivery 02/09/2002 Past Surgical History: Procedure Laterality Date ??? HX RENAL BIOPSY 06/24/2005 Family History Problem Relation Name Age of Onset ??? Heart Failure Maternal Grandmother ??? Stroke Maternal Grandfather Grandvladimir Ahuja ??? Sudden Paternal Grandfather ??? Sudden Father Shaquille ??? Hypertension Father Shaquille ??? Kidney Disease Father Shaquille ??? No Known Problems Mother ??? No Known Problems Brother ??? No Known Problems Sister ??? No Known Problems Sister ??? Other Daughter Terri PCOS ??? No Known Problems Son Current medications and allergies were reviewed and updated in computerized patient record. [facility] - [facility] [address] [facility] - [place], [place] - [address] [facility] Care Providers: Patient Care Team: Adalberto Morgan MD as PCP - General (Internal Medicine) Prev 09/05/17 Vital signs/Tobacco use BP 108/78 (BP Location: Left arm, Patient Position (BP): Sitting, BP Cuff Size: Adult) Pulse 73 Temp 99 ??F (37.2 ??C) (Tympanic) Resp 16 Ht 4' 11.5 (1.511 m) Wt 68 kg (150 lb) LMP 01/13/2019 SpO2 98% BMI 29.79 kg/m?? Blood Pressure BP Readings from Last 3 Encounters: 02/06/19 108/78 02/05/19 110/72 11/25/18 118/74 The 10-year CVD risk score (Christal'Agostino, et al., 2008) is: 1.6% Values used to calculate the score: Age: 38 years Sex: Female Diabetic: No Tobacco smoker: No Systolic Blood Pressure: 108 mmHg Is BP treated: No HDL Cholesterol: 41 mg/dL Total Cholesterol: 160 mg/dL Consider Statins if 10 year risk >7.5-10% Tobacco Use (QM) reports that she has never smoked. She has never used smokeless tobacco. She is not a tobacco user. EXAMINATION REVIEW OF SYSTEMS Review of Systems Constitutional: Positive for malaise/fatigue. Skin: Negative. Lesion raised to left thigh Objective PHYSICAL EXAM Physical Exam Constitutional: She is oriented to person, place, and time. She appears well- developed and well-nourished. HENT: Head: Normocephalic and atraumatic. Nose: Nose normal. Eyes: Conjunctivae and EOM are normal. Cardiovascular: Normal rate, regular rhythm, S1 normal and S2 normal. Exam reveals no gallop and nofriction rub. No murmur heard. Pulmonary/Chest: Effort normal. No respiratory distress. She has no wheezes. She has no rales. Neurological: She is alert and oriented to person, place, and time. Skin: Skin is warm and dry. Left thigh raised erythematous lesion-5 mm wide with 4 mm height No results found for any visits on 02/06/19 (from the past 24 hour(s)). General Procedure Date/Time: 02/06/2019 3:25 PM Performed by: Pam Graves NP Authorized by: Pam Graves NP Consent: Consent obtained: Verbal Consent given by: Patient Risks discussed: Bleeding, infection and poor cosmetic result Indications: Indications: Bleeding lesion, growing rapidly Pre-procedure details: Skin preparation: Betadine Preparation: Patient was prepped and draped in the usual sterile fashion Anesthesia (see MAR for exact dosages): Anesthesia method: Local infiltration Local anesthetic: Lidocaine 1% WITH epi Post-procedure details: Patient tolerance of procedure: Tolerated well, no immediate complications Comments: PROC: Shave Excision of single 5 mm lesion left thigh. Used #15 blade to shave off lesion, used silver nitrate to base, hemostasis obtained. Applied folded 4x4, secured with bandaid. ASSESSMENT and PLAN: Rhonda was seen today for procedure. Diagnoses and all orders for this visit: Pyogenic granuloma Bleeding pigmented skin lesion - PATHOLOGY; Future - PATHOLOGY Schedule for well woman exam, enc to get mammogram next OV. Daily gently cleanse with soap and water after 24 hours. Apply Bactroban OD. Keep wound clean and covered. Monitor for signs of infection including fevers, drainage/pus, increased redness or pain. documented in this encounter Plan of Treatment Not on file documented as of this encounter Procedures Procedure Name Priority Date/Time Associated Diagnosis Comments PATHOLOGY Routine 02/06/2019 3:22 PM CDT Bleeding pigmented skin lesion FL EXC B9 LESION MRGN XCP SK TG T/A/L 0.5 CM/< Routine 02/06/2019 9:05 AM CDT Bleeding pigmented skin lesion documented in this encounter Results * PATHOLOGY (02/06/2019 3:22 PM CDT) PATHOLOGIST INTERPRETATION Comment [facility] Comment: Material submitted: ?. thigh - LEFT THIGH. Modifiers: left PATHOLOGIST INTERPRETATION Comment [facility] Comment: Diagnosis: ANGIOMA (SUPERFICIAL BIOPSY). TMZ/02/12/2019 PATHOLOGIST INTERPRETATION Comment [facility] Comment: Electronically signed: ? . Leola Young MD, Dermatopathologist PATHOLOGIST INTERPRETATION Comment [facility] Comment: Gross description: ? . 1 Container, formalin-filled, labeled with patient identification. LEFT THIGH: 1 SHAVE BIOPSY OF FAJARDO SKIN MEASURING 0.5 X 0.4 X 0.1 CM. ON THE SURFACE IS A FLAT FAJARDO-BROWN 0.3 CM LESION. THE SURGICAL MARGIN IS INKED YELLOW. THE SPECIMEN IS BISECTED. IT IS SUBMITTED ENTIRELY IN CASSETTE(S) A1. THE SPECIMEN IS PLACED BETWEEN TWO SPONGES FOR PROCESSING. /CUR CUR/CUR PATHOLOGIST PROVIDED ICD10: Comment [facility] Comment: Pathologist provided ICD-10: D18.01 PATHOLOGIST INTERPRETATION Comment [facility] Comment: CPT ?. [id number] Tissue 02/06/2019 3:22 PM CDT 02/09/2019 Narrative [facility] - 02/12/2019 4:35 PM CDT Performed at: ??01 - [facility] [address] [place] [address] ??[id number] Die Hardener: Oliverio Maxwell MD, Phone: ??[phone] Performed at: ??02 - [facility] [address] [place] [address] ??[phone] Die Hardener: Leola Young , Phone: ??[phone] Pam Graves NP PATHOLOGY/CYTOL OGY ORDERABLES [facility] [phone] * General Procedure (02/06/2019 9:05 AM CDT) Narrative [facility] [place] - 02/06/2019 9:05 AM CDT Pam Graves NP ? 02/06/2019 ??3:31 PM General Procedure Date/Time: 02/06/2019 3:25 PM Performed by: Pam Graves NP Authorized by: Pam Graves NP Consent: ??Consent obtained: ??Verbal ??Consent given by: ??Patient ??Risks discussed: ??Bleeding, infection and poor cosmetic result Indications: ??Indications: ??Bleeding lesion, growing rapidly Pre-procedure details: ??Skin preparation: ??Betadine ??Preparation: Patient was prepped and draped in the usual sterile fashion Anesthesia (see MAR for exact dosages): ??Anesthesia method: ??Local infiltration ??Local anesthetic: ??Lidocaine 1% WITH epi Post-procedure details: ??Patient tolerance of procedure: ??Tolerated well, no immediate complications Comments: ?? PROC: Shave Excision of single 5 mm lesion left thigh. Used #15 blade to shave off lesion, used silver nitrate to base, hemostasis obtained. Applied folded 4x4, secured with bandaid. Pam Graves NP PROCEDURE/MINOR SURGICAL ORDERABLES [facility]# [id number] [address] [place] [address] documented in this encounter Visit Diagnoses Diagnosis Pyogenic granuloma- Primary Pyogenic granuloma of skin and subcutaneous tissue Bleeding pigmented skin lesion documented in this encounter Care Teams Transportation Assistant Relationship Specialty Start Date End Date Adalberto Morgan MD PCP - General Internal Medicine 12/19/15 05/01/22 documented as of this encounter
--- OUTSIDE RECORDS SUMMARY | 2024-06-16 22:53 | XMS_ITS | Encounter Summary ---
Author Organization [facility] Address [address] [place] [address] Care Team Providers Care [employer]iconductor Wafers Etcher Stripper Name Role Phone Adalberto Morgan MD Primary Care Provider [phone] Reason for Visit * Reason Comments Labs Only Encounter Details Date Type Department Care Team ([facility] st Contact Info) Description 11/25/2018 8:30 AM CDT Office Visit [facility] [address] [place] [address] Screening for condition (Primary Dx) Social History Tobacco Use Types [...] Sign Reading Time Taken Comments Blood Pressure 118/74 11/25/2018 8:36 AM CDT Pulse - - Temperature - - Respiratory Rate - - Oxygen Saturation - - Inhaled Oxygen Concentration - - Weight 66.7 kg (147 lb) 11/25/2018 8:36 AM CDT Height 151.1 cm (4' 11.5 ) 11/25/2018 8:36 AM CD T Body Mass Index 29.19 11/25/2018 8:36 AM CDT documented in this encounter Progress Notes * Janet Gaytan - 11/25/2018 8:40 AM CDT Pt came in for annual wellness screening finger stick, right hand 2nd digit, pt tolerate well. ONDINA Wise Cholesterol handout given to pt. documented in this encounter Plan of Treatment Not on file documented as of this encounter Procedures Procedure Name Priority Date/Time Associated Diagnosis Comments GLUCOSE LEVEL Routine 11/25/2018 LIPID PANEL Routine 11/25/2018 documented in this encounter Results * GLUCOSE LEVEL (11/25/2018) GLUCOSE 87 74 - 99 mg/dL [facility] Blood 11/25/2018 Abstract Provider CHEMISTRY ORDERABLES [facility] CLIA# [id number] [facility] [place] [address] * (ABNORMAL) LIPID PANEL (11/25/2018) CHOLESTEROL 160 200 mg/dL [facility] TRIGLYCERIDE 72 150 mg/dL [facility] HDL 41 40 - 59 mg/dL [facility] LDL CALCULATED 104(A) 100 mg/dL [facility] TC/HDL POC 3.9 3.43 - 4.97 Ratio [facility] Blood 11/25/2018 Abstract Provider CHEMISTRY ORDERABLES [facility] CLIA# [id number] [address] [place] [address] [place] [address] documented in this encounter Visit Diagnoses Diagnosis Screening for condition- Primary Screening for unspecified condition documented in this encounter Care Teams Semiconductor Wafers Etcher Stripper Relationship Specialty Start Date End Date Adalberto Morgan MD PCP - General Internal Medicine 12/19/15 05/01/22 documented as of this encounter
--- OUTSIDE RECORDS SUMMARY | 2024-06-16 22:53 | XMS_ITS | Encounter Summary ---
Author Organization [facility] Address [address] [place] [address] Care Team Providers Care Tank Processor Name Role Phone Soheila Romero MD Primary Care Provider [phone] Reason for Visit * Reason Comments Labs Only Encounter Details Date Type Department Care Team (Latest Contact Info) Description 08/16/2023 9:00 AM COMMERCIAL LOAN PROCESSOR Clinical Support [facility] [place] [address] [place] [address] Screening for condition (Primary Dx) Social History [...] Sign Reading Time Taken Comments Blood Pressure 124/84 08/16/2023 9:01 AM COMMERCIAL LOAN PROCESSOR Pulse - - Temperature - - Respiratory Rate - - Oxygen Saturation - - Inhaled Oxygen Concentration - - Weight 79.4 kg (175 lb) 08/16/2023 9:01 AM COMMERCIAL LOAN PROCESSOR Height 149.9 cm (4' 11 ) 08/16/2023 9:01 AM COMMERCIAL LOAN PROCESSOR Body Mass Index 35.35 08/16/2023 9:01 AM COMMERCIAL LOAN PROCESSOR documented in this encounter Progress Notes * Shira Anguiano - 08/16/2023 9:01 AM CST Pt presents for fasting labs. Left AC 1 stick, successful. Pt tolerated well. ERCIAL LOAN PROCESSOR documented in this encounter Miscellaneous Notes * Result Encounter Note - Francie Phillips RN - 08/20/2023 3:14 PM COMMERCIAL LOAN PROCESSOR Spoke to pt giving this information. Pt verbalized understanding. Follow up scheduled for 08/21/2023 at 9:30 AM ERCIAL LOAN PROCESSOR documented in this encounter Plan of Treatment Not on file documented as of this encounter Procedures Procedure Name Priority Date/Time Associated Diagnosis Comments CBC WITH DIFFERENTIAL Routine 08/16/2023 8:51 AM COMMERCIAL LOAN PROCESSOR Screening for condition TSH Routine 08/16/2023 8:51 AM COMMERCIAL LOAN PROCESSOR Screening for condition LIPID PANEL Routine 08/16/2023 8:51 AM COMMERCIAL LOAN PROCESSOR Screening for condition COMPREHENSIVE METABOLIC PANEL Routine 08/16/2023 8:51 AM COMMERCIAL LOAN PROCESSOR Screening for condition documented in this encounter Results * TSH (08/16/2023 8:51 AM COMMERCIAL LOAN PROCESSOR) TSH 2.76 mIU/L [facility] Comment: ?Reference Range ?> or = 20 Years ??0.40-4.50 ? Ranges ?First trimester ?0.26-2.66 ?Second trimester ?? 0.55-2.73 ?Third trimester ?0.43-2.91 Test Performed at: [facility] [address] [place], [place] ??[phone] Kenny Arana MD Blood 08/16/2023 8:51 AM COMMERCIAL LOAN PROCESSOR 08/17/2023 3:51 AM COMMERCIAL LOAN PROCESSOR Jolly Bobby ANP CHEMISTRY ORDERABLES Performing Organization Address [facility]/ZIP Co de Phone Number [facility] [phone] [facility] [address] [place] [address] * (ABNORMAL) LIPID PANEL (08/16/2023 8:51 AM COMMERCIAL LOAN PROCESSOR) CHOLESTEROL 208(H) <200 mg/dL [facility] HDL 43(L) > OR = 50 mg/dL [facility] TRIGLYCERIDE 119 <150 mg/dL [facility] LDL CALCULATED 141(H) mg/dL (calc) [facility] Comment: Reference range: <100 Desirable range <100 mg/dL for primary prevention; ?? <70 mg/dL for patients with CHD or diabetic patients with > or = 2 CHD risk factors. LDL-C is now calculated using the Toño calculation, which is a validated novel method providing better accuracy than the Friedewald equation in the estimation of LDL-C. Daniel MCKEON et al. HENNY. 2013;310(19): 1216-7958 (http://education.Baojia.com/faq/IPN462) CHOL/HDL RATIO 4.8 <5.0 (calc) [facility] TOTAL NON-HDL CHOL(LDL+VLDL) 165(H) <130 mg/dL (calc) [facility] Comment: For patients with diabetes plus 1 major ASCVD risk factor, treating to a non-HDL-C goal of <100 mg/dL (LDL-C of <70 mg/dL) is considered a therapeutic option. Test Performed at: [facility] [address] [place], [place] ??[phone] Kenny Arana MD Blood 08/16/2023 8:51 AM COMMERCIAL LOAN PROCESSOR 08/17/2023 3:51 AM COMMERCIAL LOAN PROCESSOR Jolly Bobby ANP CHEMISTRY ORDERABLES [facility] [phone] [facility] [address] [place] [address] [place] [address] * COMPREHENSIVE METABOLIC PANEL (08/16/2023 8:51 AM COMMERCIAL LOAN PROCESSOR) GLUCOSE 76 65 - 99 mg/dL [facility] Comment: ? Fasting reference interval BUN 13 7 - 25 mg/dL [facility] CREATININE 0.93 0.50 - 0.99 mg/dL [facility] GFR 78 > OR = 60 mL/min/1. 73m2 [facility] BUN/CREAT RATIO SEE NOTE: (calc) [facility] Comment: ?? Not Reported: BUN and Creatinine are within ?? reference range. ? SODIUM 141 135 - 146 mmol/L [facility] POTASSIUM 4.5 3.5 - 5.3 mmol/L [facility] CHLORIDE 108 98 - 110 mmol/L [facility] CO2 22 20 - 32 mmol/L [facility] CALCIUM 9.2 8.6 - 10.2 mg/dL [facility] TOTAL PROTEIN 7.3 6.1 - 8.1 g/dL [facility] ALBUMIN 4.3 3.6 - 5.1 g/dL [facility] GLOBULIN 3.0 1.9 - 3.7 g/dL (calc) [facility] ALBUMIN/GLOBULIN RATIO 1.4 1.0 - 2.5 (calc) [facility] BILIRUBIN TOTAL 1.0 0.2 - 1.2 mg/dL [facility] ALKALINE PHOSPHATASE 85 31 - 125 U/L [facility] AST 17 10 - 30 U/L [facility] ALT 15 6 - 29 U/L [facility] Comment: Test Performed at: [facility] [address] [place], [place] ??[phone] Kenny Arana MD Blood 08/16/2023 8:51 AM COMMERCIAL LOAN PROCESSOR 08/17/2023 3:51 AM COMMERCIAL LOAN PROCESSOR Jolly Bobby [facility] CHEMISTRY ORDERABLES [facility] [phone] [facility] [address] [place] [address] * (ABNORMAL) CBC WITH DIFFERENTIAL (08/16/2023 8:51 AM COMMERCIAL LOAN PROCESSOR) WBC 7.8 3.8 - 10.8 Thousand/u L [facility] RBC 4.88 3.80 - 5.10 Million/uL [facility] HEMOGLOBIN 15.4 11.7 - 15.5 g/dL [facility] HEMATOCRIT 45.3(H) 35.0 - 45.0 % [facility] MCV 92.8 80.0 - 100.0 fL [facility] MCH 31.6 27.0 - 33.0 pg [facility] MCHC 34.0 32.0 - 36.0 g/dL [facility] RDW 11.8 11.0 - 15.0 % [facility] PLATELETS 304 140 - 400 Thousand/u L [facility] MPV 10.3 7.5 - 12.5 fL [facility] NEUTROPHIL ABSOLUTE 5,273 1,500 - 7,800 cells/uL [facility] LYMPHOCYTE ABSOLUTE 2,005 850 - 3,900 cells/uL [facility] MONOCYTE ABSOLUTE 320 200 - 950 cells/uL [facility] EOSINOPHIL ABSOLUTE 164 15 - 500 cells/uL [facility] BASOPHILS ABSOLUTE 39 0 - 200 cells/uL [facility] NEUTROPHIL 67.6 % [facility] LYMPHOCYTES 25.7 % [facility] MONOCYTE 4.1 % [facility] EOSINOPHILS 2.1 % [facility] BASOPHILS 0.5 % [facility] Comment: Test Performed at: [facility] [address] [place], [place] ??[phone] Kenny Arana MD Blood 08/16/2023 8:51 AM COMMERCIAL LOAN PROCESSOR 08/17/2023 3:51 AM COMMERCIAL LOAN PROCESSOR Jolly Bobby ANP HEMATOLOGY ORDERABLE [facility] [phone] [facility] [address] [place] [address] documented in this encounter Visit Diagnoses Diagnosis Screening for condition- Primary Screening for unspecified condition documented in this encounter Care Teams Tank Processor Relationship Specialty Start Date End Date Soheila Romero MD [address] [facility] [place] [phone] PCP - General Family Practice 05/02/22 12/12/23 documented as of this encounter
--- OUTSIDE RECORDS SUMMARY | 2024-06-16 22:53 | XMS_ITS | Encounter Summary ---
Author Organization [facility] Address [address] [place] [address] Care Team Providers Care Mobile Application Architect Name Role Phone Soheila Romero MD Primary Care Provider [phone] Reason for Visit * Reason Comments Depression Anxiety Encounter Details Date Type Department Care Team (Late st Contact Info) Description 10/15/2023 2:00 PM CDT Video Visit [facility] at Work [employer] [place] [address] [place] [place] [address] Leandro Paul [address] [place] [address] Acute reaction to situational stress (Primary Dx) [...] encounter Progress Notes * Leandro Paul - 10/15/2023 2:18 PM CDT Collaborative Care - Follow Up Assessment Patient Name: Rhonda Devlin Date: 10/15/23 Length of Visit: 39 minutes Visit Type: Video PCP: Heather Physician Resident: Kanu Reason for Referral: Depression and Stress Symptom Check Check-in: How have things been since our last session? De-stress in one area, another pops up. Current Mood: Depressed, stressed Medication compliance: Not taking medication at this time Current Stressors: All responsibilities on her Substance usage: na Progress towards Goals Goals: Regain optimism Effective coping with stressors What is going well? Open to treatment suggestions/recommendations Any barriers to achieving your goal? Negative core beliefs and porous boundaries Mental Status Examination Rhonda Devlin presents as [...] and circumstantial. She reports mood to be low, depressed, discouraged, and anxious. Her affect is noted to be congruent with presentation. Insight and judgement are noted to be fair. Behavioral Health Measures Anxiety Score: 12 (09/23/2023 2:00 PM) Provisional Diagnosis: Acute reaction to situational stress F43.0 Patient Summary: Rhonda reported that her stress reappears in other areas every time she addresses one area. She described her as the primary source of her negative emotions because his depressed, anxious, and angry energy pulls her down. Rhonda stated that she takes care of all of the adult responsibilities in the marriage, and she takes care of a lot of her adult children's responsibilities as well - like still allowing them to send her their money and she pays their bills for them. She was able to trace the assuming of other's obligations to being overly controlled by her mother in order to be ok or accepted by her. Therapist explained how that has been interpreted as her needing to please people in order to be accepted by them. Will send the core beliefs packet for Rhonda to preview for discussion at next session. Plan: Rhonda will focus on improving their personal basics such as hydration, nutrition, medication compliance, sleep hygiene and movement/exercise. Will preview Core Beliefs packed for next session. Schedule Follow Up: Next Appointment: 11/05/23 @ 2 PM by video Discuss with Psychiatric Director Hematology? No This encounter was completed via two-way [...] Noted Time PHQ-9 Depression Total Score: 3 09/23/19 2:00 PM CDT documented as of this encounter Care Teams Mobile Application Architect Relationship Specialty Start Date End Date Soheila Romero MD [address] [place] [address] PCP - General Family Practice 05/02/22 12/12/23 documented as of this encounter
--- OUTSIDE RECORDS SUMMARY | 2024-06-16 22:53 | XMS_ITS | Encounter Summary ---
Author Organization [employer] [facility] Address [address] [place] [address] Care Team Providers Care Cosmetic Chemist Name Role Phone Soheila Romero MD Primary Care Provider Encounter Details Date Type Department Care Team (Late st Contact Info) Description 12/04/2023 Chart Note [facility] at Work [place] [address] [place] [address] [address] Leandro Paul [address] [place] [address] Social History Tobacco Use Types [...] encounter Progress Notes * Leandro Paul - 12/08/2023 9:56 PM CDT [facility] Psychiatric Staffing Consult and Review The consulting psychiatrist and behavioral health care managers met on 12/04/23 for Rhonda. The [facility] team discussed Rhonda diagnosis, goals, progress being made, additional treatment options and any current issues. documented in this encounter Plan of Treatment Not on file documented as of this encounter Visit Diagnoses Not on filedocumented in this encounter Additional Health Concerns Assessment Noted Time PHQ-9 Depression Total Score: 2 11/15/19 24 1:00 PM CDT documented as of this encounter Care Teams Cosmetic Chemist Relationship Specialty Start Date End Date Soheila Romero MD [address] [facility] [place] [phone] PCP - General Family Practice 05/02/22 12/12/23 documented as of this encounter
--- OUTSIDE RECORDS SUMMARY | 2024-06-16 22:53 | XMS_ITS | Encounter Summary ---
Author Organization [employer] [facility] Address [address] [place] [address] Care Team Providers Care Machine Overhauler Name Role Phone Soheila Romero MD Primary Care Provider [phone] Encounter Details Date Type Department Care Team (Late st Contact Info) Description 09/25/2023 Chart Note [facility] at Work [employer] [place] [address] [place] [address] Leandro Paul [address] [place] [address] Social History Tobacco Use Types [...] encounter Progress Notes * Leandro Paul - 09/25/2023 12:50 PM CDT [facility] Psychiatric Staffing Consult and Review The consulting psychiatrist and behavioral health care managers met on 09/25/2023 for Rhonda. [facility] diagnosis, goals, progress being made, additional treatment options and any current issues. documented in this encounter Plan of Treatment Not on file documented as of this encounter Visit Diagnoses Not on filedocumented in this encounter Additional Health Concerns Assessment Noted Time PHQ-9 Depression Total Score: 3 09/23/19 24 2:00 PM CDT documented as of this encounter Care Teams Machine Overhauler Relationship Specialty Start Date End Date Soheila Romero MD [address] [place] [address] PCP - General Family Practice 05/02/22 12/12/23 documented as of this encounter
--- OUTSIDE RECORDS SUMMARY | 2024-06-16 22:53 | XMS_ITS | Encounter Summary ---
Author Organization [employer] [facility] Address [address] [place] [address] Care Team Providers Care Vendor Quality Supervisor Name Role Phone Soheila Romero MD Primary Care Provider [phone] Encounter Details Date Type Department Care Team (Late st Contact Info) Description 11/01/2023 Chart Note [facility] at Work [email or web address] [place] [address] [place] [address] Leandro Paul [address] [place] [address] Social History Tobacco Use Types [...] encounter Progress Notes * Leandro Paul - 11/04/2023 3:13 PM CDT [facility] Psychiatric Staffing Consult and Review The consulting psychiatrist and behavioral health care managers met on 11/04/2023 for Rhonda. [facility] Rhonda diagnosis, goals, progress being made, additional treatment options and any current issues. documented in this encounter Plan of Treatment Not on file documented as of this encounter Visit Diagnoses Not on filedocumented in this encounter Additional Health Concerns Assessment Noted Time PHQ-9 Depression Total Score: 4 10/17/19 24 10:00 AM CDT documented as of this encounter Care Teams Vendor Quality Supervisor Relationship Specialty Start Date End Date Soheila Romero MD [address] [place] [address] PCP - General Family Practice 05/02/22 12/12/23 documented as of this encounter
--- OUTSIDE RECORDS SUMMARY | 2024-06-16 22:53 | XMS_ITS | Encounter Summary ---
Author Organization [employer] Address [address] [place] [address] Care Team Providers Care Karate Instructor Name Role Phone Soheila Romero MD Primary Care Provider [phone] Reason for Visit * Reason Onset Date Comments Medication Review 11/15/2023 Encounter Details Date Type Department Care Team (Late st Contact Info) Description 11/15/2023 Telephone [facility] at Work [employer] [place] [address] [place] [address] Basilia Gomez MD [address] [place] [address] Medication Review Social History Tobacco Use Types Packs/Day Years [...] encounter Miscellaneous Notes * Telephone Encounter - Francie Phillips RN - 11/15/2023 1:54 PM CDT [facility] pharmacy called requesting clarification on pt's wegovy prescription. The prescription thatwas sent is wegovy 0.25mg/0.5ml and pt is to inject 0.5mg or 1ml every 7 days. This would equal 2 pens at each injection which is not covered by pt's insurance. Can you clarify which dose patient is needing and update the prescription? documented in this encounter Plan of Treatment Not on file documented as of this encounter Visit Diagnoses Not on filedocumented in this encounter Additional Health Concerns Assessment Noted Time PHQ-9 Depression Total Score: 2 11/15/19 1:00 PM CDT documented as of this encounter Care Teams Karate Instructor Relationship Specialty Start Date End Date Soheila Romero MD [address] [place] [phone] PCP - General Family Practice 05/02/22 12/12/23 documented as of this encounter
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
--- OUTSIDE RECORDS SUMMARY | 2024-06-16 22:53 | XMS_ITS | Encounter Summary ---
Author Organization [employer] [facility] Address [address] [place] [address] Care Team Providers Care Processor Helper Name Role Phone Soheila Romero MD Primary Care Provider [phone] Reason for Visit * Reason Onset Date Comments Appointment Verification 08/06/2022 Encounter Details Date Type Department Care Team (Late st Contact Info) Description 08/06/[address] [facility] [place] [address] [place] [address] Soheila Romero MD [address] [place] [phone] Appointment Verification Social History Tobacco Use Types Packs/Day Years [...] encounter Miscellaneous Notes * Telephone Encounter - Elsie Meeks - 08/06/2022 1:31 PM CST LVM with a reminder for patients upcoming appointment on 08/07/22 at 2:30 pm at the [facility] wellness center. N WASHER documented in this encounter Plan of Treatment Not on file documented as of this encounter Visit Diagnoses Not on filedocumented in this encounter Care Teams Processor Helper Relationship Specialty Start Date End Date Soheila Romero MD [address] [place] [id number] PCP - General Family Practice 05/02/22 12/12/23 documented as of this encounter
--- OUTSIDE RECORDS SUMMARY | 2024-06-16 22:53 | XMS_ITS | Encounter Summary ---
Author Organization [facility] Address [address] [place] [address] Care Team Providers Care Art Objects Repairer Name Role Phone Soheila Romero MD Primary Care Provider [phone] Reason for Visit * Reason Comments Urinary Frequency Encounter Details Date Type Department Care Team (Late st Contact Info) Description 05/02/2022 1:30 PM HEALTH INFORMATION MANAGER Office Visit [facility] [employer] [place] [address] [place] [address] Soheila Romero MD [address] [place] [phone] UTI symptoms (Primary Dx); Refused influenza vaccine; Nephrotic syndrome Social History Tobacco Use Types Packs/Day Years [...] Sign Reading Time Taken Comments Blood Pressure 130/82 05/02/2022 2:17 PM HEALTH INFORMATION MANAGER Pulse 95 05/02/2022 1:29 PM HEALTH INFORMATION MANAGER Temperature 36.5 ??C (97.7 ??F) 05/02/2022 1:29 PM CS T Respiratory Rate 16 05/02/2022 1:29 PM HEALTH INFORMATION MANAGER Oxygen Saturation 98% 05/02/2022 1:29 PM HEALTH INFORMATION MANAGER Inhaled Oxygen Concentration - - Weight 79.4 kg (175 lb) 05/02/2022 1:29 PM HEALTH INFORMATION MANAGER Height 149.9 cm (4' 11 ) 05/02/2022 1:29 PM HEALTH INFORMATION MANAGER Body Mass Index 35.35 05/02/2022 1:29 PM HEALTH INFORMATION MANAGER documented in this encounter Patient Instructions * Attachments The following attachments cannot be sent through Care Everywhere. * UTI (Urinary Tract Infection): Female (Indonesian) documented in this encounter Progress Notes * Soheila Romero MD - 05/02/2022 1:50 PM CST Rhonda Devlin is a 41 y.o. female who presents with Urinary Frequency HPI Rhonda Devlin is a 41 y.o. female who presents with Urinary Frequency Her symptoms started this am. Patient c/o dysuria and increased urinary frequency. Patient denies f/c. Patient denies n/v. Patient denies abd pain or back pain. Patient denies constipation. Patient denies vaginal d/c. No swelling currently. Patient denies new sexual partners. Last UTI was approx 1.5 year ago. She hasn't taken anything for her symptoms. Patient Active Problem List Diagnosis Code Nephrotic syndrome N04.9 Weight gain R63.5 No current outpatient medications on file prior to visit. No current facility-administered medications on file prior to visit. Social History Tobacco Use Smoking status: Never Smokeless tobacco: Never Substance Use Topics Alcohol use: No Alcohol/week: 0.0 standard drinks Drug use: Never No LMP recorded. Social History Tobacco Use Smoking status: Never Smokeless tobacco: Never Substance Use Topics Alcohol use: No Alcohol/week: 0.0 standard drinks Drug use: Never OBJECTIVE: BP (!) 130/100 (BP Location: Left arm, Patient Position (BP): Sitting, BP Cuff Size: Adult) Pulse95 Temp 97.7 ??F (36.5 ??C) (Tympanic) Resp 16 Ht 4' 11 (1.499 m) Wt 79.4 kg (175 lb) SpO2 98% BMI 35.35 kg/m?? Physical Exam General: AAO. NAD Oral: mucous membranes moist. No oral lesions. Heart: RRR, no m/r/g Lungs: CTAB, no w/r/r Abd: soft, no masses, normal bowel sounds in all 4 quadrants. Mild ttp suprapubic area, no rebound. Back: No CVA ttp. Ext: no edema, normal pulses. Lab Results Component Value Date/Time PHUA 6.0 05/02/2022 01:41 PM SGUR 1.020 11/06/2018 02:29 PM URINELEUKOC 1+ (A) 05/02/2022 01:41 PM NITRITEUA Positive (A) 05/02/2022 01:41 PM KETONEURINE Negative 05/02/2022 01:41 PM PROTEINUA 2+ (A) 05/02/2022 01:41 PM GLUUA Negative 05/02/2022 01:41 PM BLOODUA 3+ (A) 05/02/2022 01:41 PM ASSESSMENT: Rhonda was seen today for urinary frequency. Diagnoses and all orders for this visit: UTI symptoms - URINE CULTURE; Future - POC URINALYSIS DIPSTICK AUTOMATED Refused influenza vaccine PLAN: Will send culture and treat for likely UTI. Make sure to take entire course of antibiotics. Take with food and take a probiotic or eat yogurt daily while on antibiotic. If you are on control, use back up contraception for the remainder of this cycle. No intercourse until done with abx and symptoms resolved. Push fluids. Urinate as soonas you feel the urge. Wipe front to back. Wear loose, cotton underpants, urinate after sexual contact. Call if no improvement or if new symptoms develop. An After Visit Summary was printed and given to the patient-see patient instructions TH INFORMATION MANAGER documented in this encounter Miscellaneous Notes * Result Encounter Note - Francie Phillips RN - 05/04/2022 2:08 PM HEALTH INFORMATION MANAGER LM with no pt name giving pt this information. TH INFORMATION MANAGER * Result Encounter Note - Soheila Romero MD - 05/04/2022 1:49 PM HEALTH INFORMATION MANAGER Contact patient regarding result. How are her symptoms? I would like patient to schedule appointment with hydrodynamics teacher, given her h/o nephrotic syndrome sothat they can discuss chronic terminal make up operator monitoring. TH INFORMATION MANAGER * Patient Instructions - Soheila Romero MD - 05/02/2022 2:03 PM CST Push water. We will call with lab results. TH INFORMATION MANAGER documented in this encounter Plan of Treatment Not on file documented as of this encounter Procedures Procedure Name Priority Date/Time Associated Diagnosis Comments MICROALBUMIN/CREATININ E RATIO, RANDOM UR Routine 05/02/2022 2:04 PM HEALTH INFORMATION MANAGER Nephrotic syndrome CBC WITH DIFFERENTIAL Routine 05/02/2022 2:04 PM HEALTH INFORMATION MANAGER Nephrotic syndrome URINALYSIS W/REFLEX MICROSCOPIC Routine 05/02/2022 2:04 PM HEALTH INFORMATION MANAGER Nephrotic syndrome URINE CULTURE Routine 05/02/2022 2:04 PM HEALTH INFORMATION MANAGER UTI symptoms C-REACTIVE PROTEIN Routine 05/02/2022 2: 04 PM HEALTH INFORMATION MANAGER Nephrotic syndrome ARISTIDES SCREEN W/REFLEX Routine 05/02/2022 2 :04 PM HEALTH INFORMATION MANAGER Nephrotic syndrome HEMOGLOBIN A1C Routine 05/02/2022 2:04 PM HEALTH INFORMATION MANAGER Nephrotic syndrome COMPREHENSIVE METABOLIC PANEL Routine 05/02/2022 2:04 PM HEALTH INFORMATION MANAGER Nephrotic syndrome POC URINALYSIS DIPSTICK AUTOMATED Routine 05/02/2022 1:41 PM HEALTH INFORMATION MANAGER UTI symptoms documented in this encounter Results * ARISTIDES SCREEN W/REFLEX (05/02/2022 2:04 PM HEALTH INFORMATION MANAGER) ARISTIDES SCREEN NEGATIVE NEGATIVE [facility] Comment: ARISTIDES IFA is a first line screen for detecting the presence of up to approximately 150 autoantibodies in various autoimmune diseases. A negative ARISTIDES IFA result suggests an ARISTIDES-associated autoimmune disease is not present at this time, but is not definitive. If there is high clinical suspicion for Sjogren's syndrome, testing for anti-SS-A/Ro antibody should be considered. Anti-Bonny-1 antibody should be considered for clinically suspected inflammatory myopathies. AC-0: Negative International Consensus on ARISTIDES Patterns (https://doi.org/10.1515/pfto-2619-0812) For additional information, please refer to http://education.Editlite/faq/AGX885 (This link is being provided for informational/ educational purposes only.) ?? Test Performed at: [facility] ??[phone] Bernardo Augustin D.O., MPH Blood 05/02/2022 2:04 PM HEALTH INFORMATION MANAGER 05/03/2022 6:29 AM HEALTH INFORMATION MANAGER Soheila Romero MD CHEMISTRY ORDERABLES Performing Organization Address [facility] Co de Phone Number [facility] [phone] [facility] [address] * C-REACTIVE PROTEIN (05/02/2022 2:04 PM HEALTH INFORMATION MANAGER) CRP 1.8 <8.0 mg/L [facility] Comment: Test Performed at: [facility] ??[phone] Bernardo Augustin D.O., MPH Blood 05/02/2022 2:04 PM HEALTH INFORMATION MANAGER 05/03/2022 6:29 AM HEALTH INFORMATION MANAGER Soheila Romero MD CHEMISTRY ORDERABLES Performing Organization Address [facility] Co de Phone Number [facility] [phone] [facility] [address] [address] * HEMOGLOBIN A1C (05/02/2022 2:04 PM HEALTH INFORMATION MANAGER) HEMOGLOBIN A1C 4.4 <5.7 % of total [...] diagnosis of diabetes in children. According to [place] Diabetes Association (ADA) guidelines, hemoglobin A1c <7.0% represents optimal control in non- diabetic patients. Different metrics may apply to specific patient populations. Standards of Medical Care in Diabetes(ADA). ?? ESTIMATED AVERAGE GLUCOSE (MG/DL) 80 mg/dL [facility] ESTIMATED AVERAGE GLUCOSE (MMOL/L) 4.4 mmol/L [facility] Comment: Test Performed at: [facility] [address] [place], [place] ??[phone] Bernardo Augustin D.O., MPH Blood 05/02/2022 2:04 PM HEALTH INFORMATION MANAGER 05/03/2022 6:29 AM HEALTH INFORMATION MANAGER Soheila Romero MD CHEMISTRY ORDERABLES [facility] [phone] [facility] [address] [place] [address] * (ABNORMAL) URINALYSIS WITH REFLEX MICROSCOPIC (05/02/2022 2:04 PM HEALTH INFORMATION MANAGER) COLOR UA YELLOW YELLOW [facility] CLARITY UA TURBID(A) CLEAR [facility] SPECIFIC GRAVITY UA 1.023 1.001 - 1.035 [facility] PH UA 5.5 5.0 - 8.0 [facility] GLUCOSE UA NEGATIVE NEGATIVE [facility] BILIRUBIN UA NEGATIVE NEGATIVE [facility] KETONES UA NEGATIVE NEGATIVE [facility] BLOOD UA 3+(A) NEGATIVE [facility] PROTEIN UA 2+(A) NEGATIVE [facility] NITRITE UA POSITIVE(A) NEGATIVE [facility] LEUKOCYTE ESTERASE UA 2+(A) NEGATIVE [facility] WBC UA > OR = 60(A) < OR = 5 /HPF [facility] RBC UA NONE SEEN < OR = 2 /HPF [facility] EPITHELIAL CELLS, URINE NONE SEEN < OR = 5 /HPF [facility] BACTERIA UA MANY(A) NONE SEEN /HPF [facility] HYALINE CAST NONE SEEN NONE SEEN /LPF [facility] Comment: Test Performed at: [facility] [address] [place] [address] ??[phone] Bernardo Augustin D.O., MPH Urine URINE SPECIMEN OBTAINED BY CLEAN CATCH PROCEDURE / Unknown 05/02/2022 2:04 PM HEALTH INFORMATION MANAGER 05/03/2022 6:32 AM HEALTH INFORMATION MANAGER Soheila Romero MD URINE ORDERABLES [facility] [phone] [facility] [address] [address] * (ABNORMAL) MICROALBUMIN/CREATININE RATIO, RANDOM UR (05/02/2022 2:04 PM HEALTH INFORMATION MANAGER) Creatinine, Urine 174 20 - 275 mg/dL [facility] MICROALBUMIN, URINE 50.0 See Note: mg/dL [facility] Comment: Reference Range: Reference Range Not established Verified by repeat analysis. MICROALBUMIN/CREAT RATIO, UR 287(H) <30 mcg/mg creat [facility] Comment: The ADA defines abnormalities in albumin excretion as follows: Albuminuria Category ?Result (mcg/mg creatinine) Normal to Mildly increased ?? <30 Moderately increased ? 30-299 Severely increased ? > OR = 300 The ADA recommends that at least two of three specimens collected within a 3-6 month period be abnormal before considering a patient to be within a diagnostic category. Test Performed at: [facility] [address] [place] [address] ??[phone] Bernardo Augustin D.O., MPH Urine URINE SPECIMEN OBTAINED BY CLEAN CATCH PROCEDURE / Unknown 05/02/2022 2:04 PM HEALTH INFORMATION MANAGER 05/03/2022 6:32 AM HEALTH INFORMATION MANAGER Soheila Romero MD URINE ORDERABLES [facility] [phone] [facility] [address] [place] [address] * (ABNORMAL) COMPREHENSIVE METABOLIC PANEL (05/02/2022 2:04 PM HEALTH INFORMATION MANAGER) GLUCOSE 88 65 - 99 mg/dL [facility] Comment: ? Fasting reference interval BUN 16 7 - 25 mg/dL [facility] CREATININE 1.02(H) 0.50 - 0.99 mg/dL [facility] GFR 70 > OR = 60 mL/min/1.7 3m2 [facility] Comment: The eGFR is based on the CKD-EPI 2020 equation. To calculate the new eGFR from a previous Creatinine or Cystatin C result, go to https://www.kidney.org/professionals/ kdoqi/gfr%5Fcalculator BUN/CREAT RATIO 16 6 - 22 (calc) [facility] SODIUM 139 135 - 146 mmol/L [facility] POTASSIUM 4.2 3.5 - 5.3 mmol/L [facility] CHLORIDE 104 98 - 110 mmol/L [facility] CO2 22 20 - 32 mmol/L [facility] CALCIUM 9.6 8.6 - 10.2 mg/dL [facility] TOTAL PROTEIN 7.1 6.1 - 8.1 g/dL [facility] ALBUMIN 4.4 3.6 - 5.1 g/dL [facility] GLOBULIN 2.7 1.9 - 3.7 g/dL (calc) [facility] ALBUMIN/GLOBULIN RATIO 1.6 1.0 - 2.5 (calc) [facility] BILIRUBIN TOTAL 0.8 0.2 - 1.2 mg/dL [facility] ALKALINE PHOSPHATASE 93 31 - 125 U/L [facility] AST 17 10 - 30 U/L [facility] ALT 11 6 - 29 U/L [facility] Comment: Test Performed at: [facility] [address] [place], [place] ??[phone] Bernardo Augustin D.O., MPH Blood 05/02/2022 2:04 PM HEALTH INFORMATION MANAGER 05/03/2022 6:29 AM HEALTH INFORMATION MANAGER Soheila Romero MD CHEMISTRY ORDERABLES [facility] [phone] [facility] [address] [place] [address] * (ABNORMAL) CBC WITH DIFFERENTIAL (05/02/2022 2:04 PM HEALTH INFORMATION MANAGER) WBC 13.1(H) 3.8 - 10.8 Thousand/u L [facility] RBC 4.78 3.80 - 5.10 Million/uL [facility] HEMOGLOBIN 14.8 11.7 - 15.5 g/dL [facility] HEMATOCRIT 43.5 35.0 - 45.0 % [facility] MCV 91.0 80.0 - 100.0 fL [facility] MCH 31.0 27.0 - 33.0 pg [facility] MCHC 34.0 32.0 - 36.0 g/dL [facility] RDW 11.7 11.0 - 15.0 % [facility] PLATELETS 339 140 - 400 Thousand/u L [facility] MPV 10.2 7.5 - 12.5 fL [facility] NEUTROPHIL ABSOLUTE 9,864(H) 1,500 - 7,800 cells/uL [facility] LYMPHOCYTE ABSOLUTE 2,371 850 - 3,900 cells/uL [facility] MONOCYTE ABSOLUTE 472 200 - 950 cells/uL [facility] EOSINOPHIL ABSOLUTE 341 15 - 500 cells/uL [facility] BASOPHILS ABSOLUTE 52 0 - 200 cells/uL [facility] NEUTROPHIL 75.3 % [facility] LYMPHOCYTES 18.1 % [facility] MONOCYTE 3.6 % [facility] EOSINOPHILS 2.6 % [facility] BASOPHILS 0.4 % [facility] Comment: Test Performed at: [facility] [address] [place], [place] ??[phone] Bernardo Augustin D.O., MPH Blood 05/02/2022 2:04 PM HEALTH INFORMATION MANAGER 05/03/2022 6:29 AM HEALTH INFORMATION MANAGER Soheila Romero MD HEMATOLOGY ORDERABLE S [facility] [phone] [facility] [address] [place] [address] * (ABNORMAL) URINE CULTURE (05/02/2022 2:04 PM HEALTH INFORMATION MANAGER) URINE CULTURE SEE NOTE(A) [facility] Comment: ??CULTURE, URINE, ROUTINE ?Micro Number: ?[id number] ??Test Status: ? Final ??Specimen Source: ?? Urine, clean catch ??Specimen Quality: ??Adequate ??Result: ?Greater than 100,000 CFU/mL of Escherichia coli ?E.coli ?INT ?? NATE ?? AMOX/CLAVULANATE ? S ? <=2 ?? AMPICILLIN ? S ? <=2 ?? AMP/SULBACTAM ?S ? <=2 ?? CEFAZOLIN ?NR ?<=4 2 ?? CEFEPIME ? S ? <=1 ?? CEFTAZIDIME ?S ? <=1 ?? CEFTRIAXONE ?S ? <=1 ?? CIPROFLOXACIN ?S ? <=0.25 ?? GENTAMICIN ? S ? <=1 ?? IMIPENEM ? S ? <=0.25 ?? LEVOFLOXACIN ? S ? <=0.12 ?? NITROFURANTOIN ? S ? <=16 ?? PIP/TAZOBACTAM ? S ? <=4 ?? TOBRAMYCIN ? S ? <=1 ?? TRIMETHOPRIM/SULFA ? S ? <=20 S=Susceptible ??I=Intermediate ??R=Resistant ??* = Not Tested NR = Not Reported ??NN = See Therapy Comments THERAPY COMMENTS ?Note 1: ?For infections other than uncomplicated UTI ?caused by E. coli, K. pneumoniae or P. mirabilis: ?Cefazolin is resistant if NATE > or = 8 mcg/mL. ?(Distinguishing susceptible versus intermediate ?for isolates with NATE < or = 4 mcg/mL requires ?additional testing.) ?Note 2: ?For uncomplicated UTI caused by E. coli, ?K. pneumoniae or P. mirabilis: Cefazolin is ?susceptible if NATE <32 mcg/mL and predicts ?susceptible to the oral agents cefaclor, cefdinir, ?cefpodoxime, cefprozil, cefuroxime, cephalexin ?and loracarbef. Test Performed at: [facility] [address] [place] ??[phone] Kenny Arana Urine URINE SPECIMEN OBTAINED BY CLEAN CATCH PROCEDURE / Unknown 05/02/2022 2:04 PM HEALTH INFORMATION MANAGER 05/03/2022 1:26 AM HEALTH INFORMATION MANAGER Soheila Romero MD MICROBIOLOGY - GENER AL ORDERABLES [facility] [phone] [place] [address] [place] [address] * (ABNORMAL) POC URINALYSIS DIPSTICK AUTOMATED (05/02/2022 1:41 PM HEALTH INFORMATION MANAGER) COLOR UA POC Yellow Pale to Dark Yellow [facility] CLARITY UA POC Cloudy(A) Clear [facility] GLUCOSE UA POC Negative Negative, Normal [facility] BILIRUBIN UA POC Negative Negative [facility] KETONES UA POC Negative Negative [facility] SPECIFIC GRAVITY UA POC >=1.030 1.000 - 1.[address] [facility] BLOOD UA POC 3+(A) Negative [facility] PH UA POC 6.0 5.0 - 8.[address] [facility] PROTEIN UA POC 2+(A) Negative [facility] UROBILINOGEN UA POC 0.2 <2.0 mg/dL [facility] NITRITE UA POC Positive(A) Negative [facility] LEUKOCYTE ESTERASE UA POC 1+(A) Negative [facility] KIT LOT NUMBER POC 109,036 [facility] [place] KIT EXP DATE POC [id number] [facility] Urine 05/02/2022 1:41 PM HEALTH INFORMATION MANAGER Soheila Romero MD POINT OF CARE TESTIN G [facility] CLIA# [id number] [address] [place] [address] documented in this encounter Visit Diagnoses Diagnosis UTI symptoms- Primary Refused influenza vaccine Vaccination not carried out because of patient refusal Nephrotic syndrome Nephrotic syndrome with unspecified pathological lesion in kidney documented in this encounter Care Teams Art Objects Repairer Relationship Specialty Start Date End Date Soheila Romero MD [address] [place] [address] PCP - General Family Practice 05/02/22 12/12/23 documented as of this encounter
--- OUTSIDE RECORDS SUMMARY | 2024-06-16 22:53 | XMS_ITS | Encounter Summary ---
Author Organization [facility] Address [address] [place] [address] Care Team Providers Care Local Company Truck Driver Name Role Phone Adalberto Morgan MD Primary Care Provider [phone] Reason for Visit * Reason Comments Tingling both hands and feet - ongoing 2/3 days Hand Pain both hand cramping a nd tingling - ongoing 2/3 weeks Nephrotic syndrome Medication Refill lisinopril 5mg daily Encounter Details Date Type Department Care Team (Late st Contact Info) Description 02/13/2017 12:15 PM CDT Office Visit [facility] Internal Medicine [address] [address] Adalberto Morgan MD [address] [place] [address] Nephrotic syndrome (Primary Dx); Other depression; Myalgia; Vitamin B12 deficiency (non anemic); Vitamin D deficiency Social History Tobacco Use Types Packs/Day Years Used Date Smoking Tobacco: Never Smokeless Tobacco: Never Tobacco Cessation:Counseling Given: No Alcohol Use Standard Drinks/Week Comments No 0 [...] Sign Reading Time Taken Comments Blood Pressure 100/70 02/13/2017 12:00 PM CDT Pulse - - Temperature - - Respiratory Rate - - Oxygen Saturation - - Inhaled Oxygen Concentration - - Weight 64.9 kg (143 lb) 02/13/2017 12:00 PM CDT Height 152.4 cm (5') 02/13/2017 12:00 PM CDT Body Mass Index 27.93 02/13/2017 12:00 PM CDT documented in this encounter Progress Notes * Adalberto Morgan MD - 02/13/2017 1:01 PM CDT Subjective: Rhonda Devlin is a 36 y.o. female. Mood doing better With cramping, sens skin hands and feet x weeks Cause? Nephrotic syndrome reviewed Edema stable Med reviewed Last lab reviewed On d Off b12 d Patient Active Problem List Diagnosis Date Noted ??? Nephrotic syndrome 12/28/2015 Overview Note: F/u with drill doctor q 3 months. ??? Edema 12/28/2015 Med see list Allergies Allergen Reactions ??? Ampicillin Rash Past Medical History: Diagnosis Date ??? History of blood transfusion 06/24/2005 ??? Kidney stone 06/24/2011 ??? Nephrotic syndrome 06/24/2005 ??? Nephrotic syndrome 06/24/2012 ??? Nephrotic syndrome 12/12/2015 ??? Vaginal delivery 11/19/1999 ??? Vaginal delivery 02/09/2002 Past Surgical History: Procedure Laterality Date ??? HX RENAL BIOPSY 06/24/2005 No family history on file. Social History Substance Use Topics ??? Smoking status: Never Smoker ??? Smokeless tobacco: Never Used ??? Alcohol use No Review of Systems: During the review of systems, the following significant history is obtained from the patient: Review of Systems - General ROS: some wt gain Psychological ROS: positive for - anxiety and depn, not suicidal Respiratory ROS: negative for cough, shortness of breath, or wheezing Cardiovascular ROS: negative for chest pain or dyspnea on exertion Musculoskeletal ROS: negative for back pain, neck pain or joint pain or swelling Neurological ROS: negative for TIA or stroke symptoms Exam/Objective: BP 100/70 Ht 5' (1.524 m) Wt 64.9 kg (143 lb) ? No BMI 27.93 kg/m2 General appearance: over wt nad Head: Normocephalic, without obvious abnormality, atraumatic Eyes: conjunctivae/corneas clear. PERRLA, EOM's intact. Lids appear normal. Ears: normal TM's (shiny without retraction) and external ear canals AU. No apparent lesions or masses. Hearing grossly normal. Nose: Nares normal. Septum midline. Mucosa normal. No drainage or sinus tenderness. Throat: Lips, mucosa, palate, oropharynx, and tongue normal. Teeth and gums normal. Oral mucosa unremarkable with non-inflamed posterior pharynx. Neck: supple, symmetrical, trachea midline, no lymphadenopathy, and thyroid: not enlarged, symmetric, no tenderness/mass/nodules. Lungs: breath sounds equal, clear to auscultation bilaterally, no retractions, no stridor, normal respiratory effort Heart: regular rate and rhythm, S1, S2 normal, no murmur, click, rub, gallop, or abnormal sounds. Abdomen: soft, non-tender. Bowel sounds normal. No masses, no organomegaly. Active bowel sounds. Skin: Skin color, texture, turgor normal. No rashes or lesions noted on arms, chest, or abdomen. Lymphatics: No focal or generalized lymphadenopathy. Neck Ext no edema Examination of the feet reveals warm, good capillary refill, normal DP and PT pulses, normal monofilament exam Hands, tinel neg, phalen neg Tissue Rewinder ok Mood stable Assessment and Plan: ASSESSMENT: ICD-10-CM ICD-9-CM 1. Nephrotic syndrome N04.9 581.9 COMPREHENSIVE METABOLIC PANEL TSH 2. Other depression F32.89 311 3. Myalgia M79.1 729.1 4. Vitamin B12 deficiency (non anemic) E53.8 266.2 CBC WITH DIFFERENTIAL VITAMIN B12 LEVEL 5. Vitamin D deficiency E55.9 268.9 VITAMIN D 25 HYDROXY Normal BMI Range: 18 & older: > or = 18.5 and < 25 Body mass index is 27.93 kg/(m^2). Abnormal high BMI: Patient counseled on lifestyle modifications including weight loss and daily exercise. Renal cont med Mood cont wellbutrin Myalgia vs neuropathy, add cymbalta, reassess, discussed ncs/emg if sx persist Add b12 Cont vit d Advise flu vac PLAN: Orders Placed This Encounter ??? CBC WITH DIFFERENTIAL (Favorites) ??? COMPREHENSIVE METABOLIC PANEL (Favorites) ??? TSH (Favorites) ??? VITAMIN B12 LEVEL (Chemistry) ??? VITAMIN D 25 HYDROXY (Chemistry) ??? DULoxetine (CYMBALTA) 20 mg Capsule, Delayed Release(E.C.) Appropriate medications prescribed Appropriate patient instructions provided Follow-up as I have indicated. Medications and options explained to include common side effects. Understanding of medications, course, diagnosis, and expectations were expressed by patient/guardian. documented in this encounter Plan of Treatment Not on file documented as of this encounter Visit Diagnoses Diagnosis Nephrotic syndrome- Primary Nephrotic syndrome with unspecified pathological lesion in kidney Other depression Myalgia Mylagia and myositis, unspecified Vitamin B12 deficiency (non anemic) Other B-complex deficiencies Vitamin D deficiency Unspecified vitamin D deficiency documented in this encounter Care Teams Local Company Truck Driver Relationship Specialty Start Date End Date Adalberto Morgan MD PCP - General Internal Medicine 12/19/15 05/01/22 documented as of this encounter
--- OUTSIDE RECORDS SUMMARY | 2024-06-16 22:53 | XMS_ITS | Encounter Summary ---
Author Organization [facility] Address [address] [place] [address] Care Team Providers Care Waterworks Supervisor Name Role Phone Soheila Romero MD Primary Care Provider [phone] Reason for Visit * Reason Onset Date Comments Medication Problem 09/23/2023 Encounter Details Date Type Department Care Team (Late st Contact Info) Description 09/23/2023 Refill [facility] [place] [address] [place] [address] Soheila Romero MD [address] [place] [address] Severe obesity (BMI 35.0-39.9) with comorbidity Social History Tobacco Use Types Packs/Day Years [...] as of this encounter Miscellaneous Notes * Addendum Note - Francie Correa, JEWELL - 09/25/2023 2:29 PM CDTAddended by: FRANCIE CORREA on: 09/25/2023 02:29 PM Modules accepted: Orders * Telephone Encounter - Francie Correa RN - 09/25/2023 2:26 PM CDT Per pt, she was able to find one box of zepbound 2.5mg at [facility] in [place], [place]. Pt is requesting the prescription sent there. Advised pt if insurance does not cover then pt will have to pay out of pocket or will have to wait until zepbound 5mg becomes available again. See Patient Message chaindated 08/26/23. * Telephone Encounter - Shira Anguiano - 09/23/2023 3:10 PM CDT Left message for pt to return call about script being sent over to pharmacy * Telephone Encounter - Shira Anguiano - 09/23/2023 10:57 AM CDT Pt left a message requesting for her Zepbound prescription to be sent to [facility] pharmacy in [place]. She states that all the other pharmacies are out and this is the only pharmacy that has 1 box left.Pt states that the only thing is that the medication is 2.5 mg. Pt is requesting for you to send this dosage in as she does not know how much longer she would have to wait to get it filled. Please advise. documented in this encounter Plan of Treatment Not on file documented as of this encounter Visit Diagnoses Diagnosis Severe obesity (BMI 35.0-39.9) with comorbidity documented in this encounter Additional Health Concerns Assessment Noted Time PHQ-9 Depression Total Score: 3 09/23/19 24 2:00 PM CDT documented as of this encounter Care Teams Waterworks Supervisor Relationship Specialty Start Date End Date Soheila Romero MD [address] [place] [address] PCP - General Family Practice 05/02/22 12/12/23 documented as of this encounter
--- OUTSIDE RECORDS SUMMARY | 2024-06-16 22:53 | XMS_ITS | Encounter Summary ---
Author Organization [facility] Address [address] [place] [address] Care Team Providers Care Obstetrics/Gynecology Nurse Name Role Phone Adalberto Morgan MD Primary Care Provider [phone] Reason for Visit * Reason Comments Labs Only Encounter Details Date Type Department Care Team (Latest Contact Info) Description 09/29/2020 2:00 PM CDT Clinical Support [facility] [employer] [place] [address] [address] Encounter for screening, unspecified (Primary Dx) Social History Tobacco Use Types [...] Sign Reading Time Taken Comments Blood Pressure 106/64 09/29/2020 1:47 PM CDT Pulse - - Temperature - - Respiratory Rate - - Oxygen Saturation - - Inhaled Oxygen Concentration - - Weight 73 kg (161 lb) 09/29/2020 1:47 PM CDT Height 151.1 cm (4' 11.5 ) 09/29/2020 1:47 PM CD T Body Mass Index 31.97 09/29/2020 1:47 PM CDT documented in this encounter Progress Notes * Janet Gaytan - 09/29/2020 1:50 PM CDT Pt came in for annual wellness screening finger stick, left hand 2nd digit, pt tolerate well. ONDINA Wise documented in this encounter Plan of Treatment Not on file documented as of this encounter Procedures Procedure Name Priority Date/Time Associated Diagnosis Comments POC LIPID PANEL AND GLUCOSE Routine 09/29/2020 1:52 PM CDT documented in this encounter Results * (ABNORMAL) POC LIPID PANEL AND GLUCOSE (09/29/2020 1:52 PM CDT) CHOLESTEROL 192 200 mg/dL [facility] HDL 45 40 - 59 mg/dL [facility] LDL CALCULATED 117(A) 100 mg/dL [facility] TRIGLYCERIDE 148 150 mg/dL [facility] NON-HDL CHOLESTEROL 0 130 mg/dL [facility] Comment:NA CHOL/HDL RATIO 4.2 [facility] GLUCOSE POC 82 74 - 99 mg/dL [facility] Blood 09/29/2020 1:52 PM CDT Abstract Provider POINT OF CARE TESTIN G COM [facility] CLIA# [id number] [address] [place] [address] documented in this encounter Visit Diagnoses Diagnosis Encounter for screening, unspecified- Primary documented in this encounter Care Teams Obstetrics/Gynecology Nurse Relationship Specialty Start Date End Date Adalberto Morgan MD PCP - General Internal Medicine 12/19/15 05/01/22 documented as of this encounter
--- OUTSIDE RECORDS SUMMARY | 2024-06-16 22:53 | XMS_ITS | Encounter Summary ---
Author Organization [facility] Address [address] [place] [address] Care Team Providers Care Paid Intern Name Role Phone Adalberto Morgan MD Primary Care Provider [phone] Encounter Details Date Type Department Care Team (Late st Contact Info) Description 06/13/2018 Orders Only [facility] [address] [place] [address] [place] [address] [facility] [address] [place] [address] Social History Tobacco Use Types Packs/Day Years [...] as of this encounter Progress Notes * Pam Graves NP - 06/13/2018 9:16 AM CST Called and left pt a message to discuss how her symptoms are doing and suggest Zantac. Sent email as well. CXR neg. Modified Well's Criteria last OV: 0, no hx of DVT, PE, no signs of DVT, O2 sat 99%, HR 83, no immobilization, hemoptysis or recent surgery, bedrest. Does have hx of nephrotic syndrome in remission. 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 documented in this encounter Plan of Treatment Not on file documented as of this encounter Procedures Procedure Name Priority Date/Time Associated Diagnosis Comments XR CHEST PA AND LATERAL 2 VW Routine 06/12/2018 documented in this encounter Results * XR CHEST PA AND LATERAL 2 VW (06/12/2018) Anatomical Region Laterality Modality Chest Other Pam Graves NP DIAGNOSTIC IMAG ING ORDERABLES documented in this encounter Visit Diagnoses Not on filedocumented in this encounter Care Teams Paid Intern Relationship Specialty Start Date End Date Adalberto Morgan MD PCP - General Internal Medicine 12/19/15 05/01/22 documented as of this encounter
--- OUTSIDE RECORDS SUMMARY | 2024-06-16 22:53 | XMS_ITS | Encounter Summary ---
Author Organization [employer] Address [address] [place] [address] Care Team Providers Care Patient Care Provider Name Role Phone Soheila Romero MD Primary Care Provider [phone] Reason for Visit * Reason Onset Date Comments [facility] Appt 12/05/2023 2nd contact to mindi valera cancelled appointment. Left message. Encounter Details Date Type Department Care Team (Late st Contact Info) Description 12/05/2023 Telephone [facility] [employer] [place] [address] [place] [address] Leandro Paul [address] [place] [address] [facility] Appt (2nd contact to reschedule cancelled appointment. Left message.) Social History Tobacco Use [...] documented as of this encounter Care Teams Patient Care Provider Relationship Specialty Start Date End Date Soheila Romero MD [address] [place] [address] PCP - General Family Practice 05/02/22 12/12/23 documented as of this encounter
--- OUTSIDE RECORDS SUMMARY | 2024-06-16 22:53 | XMS_ITS | Encounter Summary ---
Author Organization [facility] Address [address] [place] [address] Care Team Providers Care Gear Grinder Name Role Phone Adalberto Morgan MD Primary Care Provider [phone] Reason for Visit * Reason Comments Labs Only Annual Wellness scre ening Encounter Details Date Type Department Care Team (Late st Contact Info) Description 02/20/2018 7:00 AM CDT Office Visit [facility] at Work [employer] [address] [place] [address] Screening for condition (Primary Dx) [...] Reading Time Taken Comments Blood Pressure 106/64 02/20/2018 7:28 AM CDT Pulse 58 02/20/2018 7:28 AM CDT Temperature - - Respiratory Rate - - Oxygen Saturation - - Inhaled Oxygen Concentration - - Weight 63 kg (139 lb) 02/20/2018 7:28 AM CDT Height 149.9 cm (4' 11 ) 02/20/2018 7:28 AM CDT Body Mass Index 28.07 02/20/2018 7:28 AM CDT documented in this encounter Progress Notes * Janet Gaytan - 02/20/2018 7:28 AM CDT Pt came in for blood draw, left AC successful, 1 stick pt tolerated well. Drawn by Frandy. PHQ-9 score-6, pt notified she could follow up here to discuss if she would like and was given the EAP brochure. documented in this encounter Plan of Treatment Not on file documented as of this encounter Procedures Procedure Name Priority Date/Time Associated Diagnosis Comments CBC WITH DIFFERENTIAL Routine 02/20/2018 7:30 AM CDT Screening for condition TSH Routine 02/20/2018 7:30 AM CDT Screening for condition LIPID PANEL Routine 02/20/2018 7:30 AM CDT Screening for condition COMPREHENSIVE METABOLIC PANEL Routine 02/20/2018 7:30 AM CDT Screening for condition documented in this encounter Results * TSH (02/20/2018 7:30 AM CDT) TSH 2.450 0.450 - 4.500 uIU/mL [facility] Blood 02/20/2018 7:30 AM CDT 02/20/2018 Narrative [facility] - 02/21/2018 6:37 AM CDT Performed at: ??01 - [facility] [address] ??[id number] Choir Accompanist: John Ac PhD, Phone: ??[phone] Pam Graves NP CHEMISTRY ORDER LUIGI [facility] * (ABNORMAL) LIPID PANEL (02/20/2018 7:30 AM CDT) CHOLESTEROL 179 100 - 199 mg/dL [facility] TRIGLYCERIDE 65 0 - 149 mg/dL [facility] HDL 52 >39 mg/dL [facility] VLDL CHOLESTEROL, CALCULATED 13 5 - 40 mg/dL [facility] LDL CALCULATED 114(H) 0 - 99 mg/dL [facility] Blood 02/20/2018 7:30 AM CDT 02/20/2018 Narrative [facility] - 02/21/2018 6:37 AM CDT Performed at: ??01 - [facility] [address], [place], [place] ??[id number] Choir Accompanist: John Ac PhD, Phone: ??[phone] Pam Graves FAIRING WORKER CHEMISTRY ORDER LUIGI [facility] * COMPREHENSIVE METABOLIC PANEL (02/20/2018 7:30 AM CDT) GLUCOSE 69 65 - 99 mg/dL [facility] Comment: Specimen received in contact with cells. No visible hemolysis present. However GLUC may be decreased and K increased. Clinical correlation indicated. BUN 16 6 - 20 mg/dL [facility] CREATININE 0.83 0.57 - 1.00 mg/dL [facility] GFR 89 >59 mL/min/1.7 3 [facility] GFR, 103 >59 mL/min/1.7 3 [facility] BUN/CREAT RATIO 19 9 - 23 [facility] SODIUM 142 134 - 144 mmol/L [facility] POTASSIUM 4.7 3.5 - 5.2 mmol/L [facility] Comment: Specimen received in contact with cells. No visible hemolysis present. However GLUC may be decreased and K increased. Clinical correlation indicated. CHLORIDE 104 96 - 106 mmol/L [facility] CO2 20 20 - 29 mmol/L [facility] CALCIUM 9.2 8.7 - 10.2 mg/dL [facility] TOTAL PROTEIN 7.1 6.0 - 8.5 g/dL [facility] ALBUMIN 4.4 3.5 - 5.5 g/dL [facility] GLOBULIN 2.7 1.5 - 4.5 g/dL [facility] ALBUMIN/GLOBULIN RATIO 1.6 1.2 - 2.2 [facility] BILIRUBIN TOTAL 0.6 0.0 - 1.2 mg/dL [facility] ALKALINE PHOSPHATASE 80 39 - 117 IU/L [facility] AST 10 0 - 40 IU/L [facility] ALT 8 0 - 32 IU/L [facility] Blood 02/20/2018 7:30 AM CDT 02/20/2018 Narrative [facility] - 02/21/2018 6:37 AM CDT Performed at: ??01 - [facility] [address] ??[id number] Choir Accompanist: John Ac PhD, Phone: ??[phone] Pam Graves NP CHEMISTRY ORDER LUIGI [facility] * CBC WITH DIFFERENTIAL (02/20/2018 7:30 AM CDT) WBC 6.9 3.4 - 10.8 x10E3/uL [facility] RBC 4.63 3.77 - 5.28 x10E6/uL [facility] HEMOGLOBIN 14.2 11.1 - 15.9 g/dL [facility] HEMATOCRIT 40.7 34.0 - 46.6 % [facility] MCV 88 79 - 97 fL [facility] MCH 30.7 26.6 - 33.0 pg [facility] MCHC 34.9 31.5 - 35.7 g/dL [facility] RDW 12.6 12.3 - 15.4 % [facility] PLATELETS 292 150 - 379 x10E3/uL [facility] NEUTROPHIL 62 Not Estab. % [facility] LYMPHOCYTES 31 Not Estab. % [facility] MONOCYTE 5 Not Estab. % [facility] EOSINOPHILS 2 Not Estab. % [facility] BASOPHILS 0 Not Estab. % [facility] NEUTROPHIL ABSOLUTE 4.3 1.4 - 7.0 x10E3/uL [facility] LYMPHOCYTE ABSOLUTE 2.1 0.7 - 3.1 x10E3/uL [facility] MONOCYTE ABSOLUTE 0.4 0.1 - 0.9 x10E3/uL [facility] EOSINOPHIL ABSOLUTE 0.2 0.0 - 0.4 x10E3/uL [facility] BASOPHILS ABSOLUTE 0.0 0.0 - 0.2 x10E3/uL [facility] IMMATURE GRANULOCYTES 0 Not Estab. % [facility] IMMATURE GRANULOCYTES ABSOLUTE 0.0 0.0 - 0.1 x10E3/uL [facility] Blood 02/20/2018 7:30 AM CDT 02/20/2018 Narrative [facility] - 02/21/2018 6:37 AM CDT Performed at: ??01 - [facility] [address] ??[id number] Choir Accompanist: John Ac PhD, Phone: ??[phone] Pam Graves NP HEMATOLOGY CHICA GIBSON [facility] documented in this encounter Visit Diagnoses Diagnosis Screening for condition- Primary Screening for unspecified condition documented in this encounter Additional Health Concerns Assessment Noted Time PHQ-9 Depression Total Score: 3 02/21/20 18 7:00 AM CDT documented as of this encounter Care Teams Gear Grinder Relationship Specialty Start Date End Date Adalberto Morgan MD PCP - General Internal Medicine 12/19/15 05/01/22 documented as of this encounter
--- OUTSIDE RECORDS SUMMARY | 2024-06-16 22:53 | XMS_ITS | Encounter Summary ---
Author Organization [facility] Address [address] [place] [address] Care Team Providers Care Manager Battery Name Role Phone Soheila Romero MD Primary Care Provider [phone] Encounter Details Date Type Department Care Team (Late st Contact Info) Description 06/07/2023 External Device Data [facility] ABSTRACTION Provider, Abstract [...] on filedocumented in this encounter Care Teams Manager Battery Relationship Specialty Start Date End Date Soheila Romero MD [address] [place] [id number] PCP - General Family Practice 05/02/22 12/12/23 documented as of this encounter
--- OUTSIDE RECORDS SUMMARY | 2024-06-16 22:53 | XMS_ITS | Encounter Summary ---
Author Organization [facility] Address [address] [place] [address] Care Team Providers Care Gantry Crane Operator Name Role Phone Soheila Romero MD Primary Care Provider [phone] Encounter Details Date Type Department Care Team (Late st Contact Info) Description 08/12/2023 External Device Data ST[facility] ABSTRACTION Provider, Abstract [...] on filedocumented in this encounter Care Teams Gantry Crane Operator Relationship Specialty Start Date End Date Soheila Romero MD [address] [place] [id number] PCP - General Family Practice 05/02/22 12/12/23 documented as of this encounter
--- OUTSIDE RECORDS SUMMARY | 2024-06-16 22:53 | XMS_ITS | Encounter Summary ---
Author Organization [facility] Address [address] [place] [address] Care Team Providers Care Field Recruiter Name Role Phone Soheila Romero MD Primary Care Provider [phone] Reason for Referral * Eval and Treat (Routine) - Authorized Specialty Diagnoses / Procedures Referred By Catracho aguilar Referred To Contact Diagnoses Acute reaction to situational stress Rossana Pan FNP [address] [place] [phone] Referral ID Status Reason Start Date Expiration Date V isits Requested Visits Authorized [id number] Authorized 08/21/2023 08/21/2024 1 1 ERCIAL PRINT SALESMAN Reason for Visit * Reason Comments review lab results and adjusting to stre ssful life event Encounter Details Date Type Department Care Team (Late st Contact Info) Description 08/21/2023 9:30 AM COMMERCIAL PRINT SALESMAN Telephone Check Up [facility] at Work [employer] [address] [place] [address] Rossana Pan FNP [address] [place] [phone] Acute reaction to situational stress (Primary Dx); Vitamin D deficiency; Severe obesity (BMI 35.0-39.9) with comorbidity; HTN (hypertension), benign; History of nephrotic syndrome; Hyperlipidemia, unspecified hyperlipidemia type Social History Tobacco Use Types Packs/Day [...] as of this encounter Progress Notes * Shira Anguiano - 08/22/2023 1:20 PM CST Left message for pt to return call and schedule an appt ERCIAL PRINT SALESMAN * Rossana Pan FNP - 08/21/2023 9:30 AM CST This encounter was completed via audio-only two way synchronous communication. Patient's identity confirmed yes Patient gave verbal consent to have these services billed to their insurance and expressed understanding that co-insurance and deductible may apply: yes Time spent by the provider delivering the care documented in this encounter 30 minutes. HISTORY OF PRESENT ILLNESS Rhonda Devlin, a 42 y.o. female presents with a Chief Complaint of review lab results and adjusting to stressful life event Subjective HPI Complains of stressful life events. Grandmother this week and she is currently on bereavement. Has not spoken with mother in five years and concerned attending will put her in a position to see her mother, so she plans on not attending. Just found out her daughter got fired fromjob. She is under a ton of stress. Denies h/o anxiety, depression or other mental health. She is open to counseling. Would like medical support for weight loss. 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 Tried to accomplish weight reduction via [employer] program last year. Currently signed up for a program via paid [employer] that provides meal and physical activity planning. She just started this. Denies personal or family history of medullary thyroid carcinoma (MTC) or in patients with MultipleEndocrine Neoplasia syndrome type 2 (MEN 2). Review of labs: Lab Results Component Value Date/Time WBC 7.8 08/16/2023 08:51 AM HGB 15.4 08/16/2023 08:51 AM HCT 45.3 (H) 08/16/2023 08:51 AM PLT 304 08/16/2023 08:51 AM MCV 92.8 08/16/2023 08:51 AM Slight elevation of Hct at 45.3. Otherwise, complete blood count is within normal parameters. Discussed continued monitoring with annual lab, consider additional testing if Hct>=48%. Lab Results Component Value Date/Time NA 141 08/16/2023 08:51 AM K 4.5 08/16/2023 08:51 AM CL 108 08/16/2023 08:51 AM CO2 22 08/16/2023 08:51 AM CA 9.2 08/16/2023 08:51 AM BUN 13 08/16/2023 08:51 AM CREAT 0.93 08/16/2023 08:51 AM GLUCOSE 76 08/16/2023 08:51 AM TOTALPROTEIN 7.3 08/16/2023 08:51 AM ALBUMIN 4.3 08/16/2023 08:51 AM BILITOTAL 1.0 08/16/2023 08:51 AM ALKPHOS 85 08/16/2023 08:51 AM AST 17 08/16/2023 08:51 AM ALT 15 08/16/2023 08:51 AM BCRATIO SEE NOTE: 08/16/2023 08:51 AM Complete metabolic panel is within normal parameters. This includes your fasting blood sugar, electrolytes, kidney and liver function. Lab Results Component Value Date/Time TSH 2.76 08/16/2023 08:51 AM Thyroid stimulating hormone is within normal. Lab Results Component Value Date/Time CHOLTOT 208 (H) 08/16/2023 08:51 AM HDL 43 (L) 08/16/2023 08:51 AM LDLCALC 141 (H) 08/16/2023 08:51 AM TRIGLYCERIDE 119 08/16/2023 08:51 AM Discussed interpretation of abnormal cholesterol levels. ASCVD 10 year risk is LOW at 1.1%. Discussed lifestyle modification to improve cholesterol and LDL goal <100. Social History Socioeconomic History Marital status: Spouse name: Not on file Number of children: 2 Occupational History Not on file Tobacco Use Smoking status: Never Smokeless tobacco: Never Substance and Sexual Activity Alcohol use: No Alcohol/week: 0.0 standard drinks of alcohol Drug use: Never Sexual activity: Yes Partners: Male control/protection: Other (Comment) Comment: had vasectomy Other Topics Concern Service No Blood Transfusions Yes Comment: 2005 Caffeine Concern Yes Comment: soda,tea Occupational Exposure Not Asked Hobby Hazards Not Asked Sleep Concern No Stress Concern No Weight Concern Yes Special Diet No Comment: Reg Diet Back Care No Exercise Yes Comment: gym twice a week Patient Active Problem List Diagnosis Code Nephrotic syndrome N04.9 Weight gain R63.5 Allergies Allergen Reactions Ampicillin Rash Review of Systems Psychiatric/Behavioral: Negative for depression, hallucinations, substance abuse and suicidal ideas. The patient is nervous/anxious. All other systems reviewed and are negative. Objective PHYSICAL EXAM There were no vitals taken for this visit. BP Readings from Last 3 Encounters: 08/16/23 124/84 09/07/22 124/86 05/02/22 130/82 Physical Exam Pulmonary: Effort: Pulmonary effort is normal. Neurological: Mental Status: She is alert. Psychiatric: Attention and Perception: Attention normal. Mood and Affect: Affect is tearful. Speech: Speech normal. Behavior: Behavior is cooperative. Thought Content: Thought content does not include suicidal ideation. Assessment ASSESSMENT and PLAN: ICD-10-CM ICD-9-CM 1. Acute reaction to situational stress F43.0 308.9 AMB REFERRAL TO COLLABORATIVE CASE MANAGEMENT Agrees to initiate counseling for bereavement as well as adjustment to other stressful events, and will follow up with clinic as needed for ongoing mental health concerns. 2. Vitamin D deficiency E55.9 268.9 VITAMIN D 25 HYDROXY Restart daily D3 2,000 units and follow up vit D level with next labs. 3. Severe obesity (BMI 35.0-39.9) with comorbidity E66.01 278.01 tirzepatide, weight loss, (Zepbound) 2.5 mg/0.5 mL Pen Injector Discussed GLP-1 therapy approved for weight loss including benefit versus risk, potential for negative SE. Follow up in 1 month. 4. HTN (hypertension), benign I10 401.1 Discussed stage 1 HTN and lifestyle modification was emphasized. Continued monitoring. 5. History of nephrotic syndrome Z87.441 V13.03 In remission. 6. Hyperlipidemia, unspecified hyperlipidemia type E78.5 272.4 LIPID PANEL Emphasized lifestyle modification and determined current risk remains low. ERCIAL PRINT SALESMAN documented in this encounter Miscellaneous Notes * Patient Instructions - Rossana Pan FNP - 08/22/2023 1:06 PM CST ASSESSMENT and PLAN: ICD-10-CM ICD-9-CM 1. Acute reaction to situational stress F43.0 308.9 AMB REFERRAL TO COLLABORATIVE CASE MANAGEMENT Agrees to initiate counseling for bereavement as well as adjustment to other stressful events, and will follow up with clinic as needed for ongoing mental health concerns. 2. Vitamin D deficiency E55.9 268.9 VITAMIN D 25 HYDROXY Restart daily D3 2,000 units daily and follow up vit D level with next lab draw. 3. Severe obesity (BMI 35.0-39.9) with comorbidity E66.01 278.01 tirzepatide, weight loss, (Zepbound) 2.5 mg/0.5 mL Pen Injector Discussed GLP-1 therapy approved for weight loss including benefit versus risk, potential for negative SE. Combine medication with lifestyle modification. Patient has a new program in place. Follow up in 1 month. 4. HTN (hypertension), benign I10 401.1 Discussed stage 1 HTN and lifestyle modification was emphasized. Continued monitoring. 5. History of nephrotic syndrome Z87.441 V13.03 In remission. 6. Hyperlipidemia, unspecified hyperlipidemia type E78.5 272.4 LIPID PANEL Emphasized lifestyle modification and determined current risk remains low. ERCIAL PRINT SALESMAN documented in this encounter Plan of Treatment Scheduled Referrals Name Type Priority Associated Diagnoses Order Schedule AMB REFERRAL TO COLLABORATIVE CASE MANAGEMENT Outpatient Referral Routine Acute reaction to situational stress Ordered: 08/21/2023 documented as of this encounter Visit Diagnoses Diagnosis Acute reaction to situational stress- Primary Vitamin D deficiency Unspecified vitamin D deficiency Severe obesity (BMI 35.0-39.9) with comorbidity HTN (hypertension), benign Essential hypertension, benign History of nephrotic syndrome Personal history of nephrotic syndrome Hyperlipidemia, unspecified hyperlipidemia type documented in this encounter Care Teams Field Recruiter Relationship Specialty Start Date End Date Soheila Romero MD [address] [place] [address] PCP - General Family Practice 05/02/22 12/12/23 documented as of this encounter
--- OUTSIDE RECORDS SUMMARY | 2024-06-16 22:53 | XMS_ITS | Encounter Summary ---
Author Organization [facility] Address [address] [place] [address] Care Team Providers Care Beam Doffer Name Role Phone oSheila Romero MD Primary Care Provider [phone] Reason for Visit * Reason Onset Date Comments CoCM Initial Contact 09/05/2023 2nd contact to schedule initial assessment. Left message. Encounter Details Date Type Department Care Team (Late st Contact Info) Description 09/05/2023 Telephone [facility] at Work [employer] [place] [address] [place] [address] Leandro Paul [address] [place] [phone] CoCM Initial Contact (2nd contact to schedule initial assessment. Left message.) Social History Tobacco Use Types [...] on filedocumented in this encounter Care Teams Beam Doffer Relationship Specialty Start Date End Date Soheila Romero MD [address] [place] [address] PCP - General Family Practice 05/02/22 12/12/23 documented as of this encounter
--- OUTSIDE RECORDS SUMMARY | 2024-06-16 22:53 | XMS_ITS | Encounter Summary ---
Author Organization [facility] Address [address] [place] [address] Care Team Providers Care Boiler House Inspector Name Role Phone Adalberto Morgan MD Primary Care Provider [phone] Reason for Visit * Reason Comments Urinary Frequency Encounter Details Date Type Department Care Team (Late st Contact Info) Description 11/06/2018 2:30 PM CDT Office Visit [facility] at Work [employer] [address] [place] [address] Pam Graves, NEETA [address] [facility] [address] [place] [address] Cystitis with hematuria (Primary Dx); Dysuria Social History Tobacco Use Types Packs/Day Years [...] Sign Reading Time Taken Comments Blood Pressure 110/86 11/06/2018 2:11 PM CDT Pulse 87 11/06/2018 2:11 PM CDT Temperature 37.2 ??C (98.9 ??F) 11/06/2018 2:11 PM CD T Respiratory Rate 16 11/06/2018 2:11 PM CDT Oxygen Saturation 98% 11/06/2018 2:11 PM CDT Inhaled Oxygen Concentration - - Weight 68 kg (150 lb) 11/06/2018 2:11 PM CDT Height 151.1 cm (4' 11.5 ) 11/06/2018 2:11 PM CD T Body Mass Index 29.79 11/06/2018 2:11 PM CDT documented in this encounter Progress Notes * Pam Graves, NEETA - 11/06/2018 2:22 PM CDT HISTORY OF PRESENT ILLNESS Rhonda Devlin is a 38 y.o. female who presents for Chief Complaint Patient presents with ??? Urinary Frequency Right flank sharp stabbing intermittently for 1 day, urinary frequency. Concern she has UTI but also has a hx of nephrotic syndrome Burning with trying to void and hesitancy yesterday. Today had another episode of burning with urination. Denies fevers or nausea/vomiting. States has had UTI symptomspreceeding flare up of nephrotic syndrome in the past. Past Medical History: Diagnosis Date ??? History of blood transfusion 06/24/2005 ??? Kidney stone 06/24/2011 ??? Nephrotic syndrome 06/24/2005 ??? Nephrotic syndrome 06/24/2012 ??? Nephrotic syndrome 12/12/2015 ??? Vaginal delivery 11/19/1999 ??? Vaginal delivery 02/09/2002 Current Outpatient Medications Medication Sig Dispense Refill ??? ciprofloxacin HCl (CIPRO) 500 mg tablet Take 1 Tablet (500 mg) by mouth 2 times daily for 7 days. 14 Tablet 0 ??? ergocalciferol (VITAMIN D2) 50,000 unit capsule Take 1 Capsule (50,000 Units) by mouth every 7 days. 12 Capsule 3 ??? lisinopril (PRINIVIL) 5 mg tablet 1/2 tab daily. 90 Tablet 0 No current facility-administered medications for this visit. Allergies Allergen Reactions ??? Ampicillin Rash BP 110/86 (BP Location: Left arm, Patient Position (BP): Sitting, BP Cuff Size: Adult) Pulse 87 Temp 98.9 ??F (37.2 ??C) (Tympanic) Resp 16 Ht 4' 11.5 (1.511 m) Wt 68 kg (150 lb) LMP 10/29/2018 SpO2 98% BMI 29.79 kg/m?? MEDICAL RECORD [...] Failure Maternal Grandmother ??? Stroke Maternal Grandfather ??? Sudden Paternal Grandfather ??? Sudden Father ??? No Known Problems Mother ??? No Known Problems Brother ??? No Known Problems Sister ??? No Known Problems Sister ??? Other Daughter PCOS ??? No Known Problems Son Current medications and allergies were reviewed and updated in computerized patient record. [facility] - [place], [place] - [address] [facility] - [place] - [address] [facility] Care Providers: Patient Care Team: Adalberto Morgan MD as PCP - General (Internal Medicine) Prev 09/05/17 Vital signs/Tobacco use BP 110/86 (BP Location: Left arm, Patient Position (BP): Sitting, BP Cuff Size: Adult) Pulse 87 Temp 98.9 ??F (37.2 ??C) (Tympanic) Resp 16 Ht 4' 11.5 (1.511 m) Wt 68 kg (150 lb) LMP 10/29/2018 SpO2 98% BMI 29.79 kg/m?? Blood Pressure BP Readings from Last 3 Encounters: 11/06/18 110/86 08/27/18 126/84 06/11/18 124/84 BMI POC (QM) Body mass index is 29.79 kg/m??. Normal BMI range: 18 & older: > or = 18.5 and < 25 Abnormal high BMI: Patient counseled on lifestyle modifications including weight loss and daily exercise. The 10-year CVD risk score (D'Agostino, et al., 2008) is: 1.6% Values used to calculate the score: Age: 38 years Sex: Female Diabetic: No Tobacco smoker: No Systolic Blood Pressure: 110 mmHg Is BP treated: No HDL Cholesterol: 52 mg/dL Total Cholesterol: 179 mg/dL Consider Statins if 10 year risk >7.5-10% Tobacco Use (QM) reports that she has never smoked. She has never used smokeless tobacco. She is not a tobacco user. EXAMINATION REVIEW OF SYSTEMS Review of Systems Constitutional: Negative. Negative for chills and fever. HENT: Negative. Respiratory: Negative. Cardiovascular: Negative. Gastrointestinal: Negative. Genitourinary: Positive for dysuria. Hesitancy Musculoskeletal: Positive for back pain. Neurological: Negative. Psychiatric/Behavioral: Negative. Objective PHYSICAL EXAM Physical Exam Constitutional: She is oriented to person, place, and time. She appears well- developed and well-nourished. HENT: Head: Normocephalic and atraumatic. Nose: Nose normal. Eyes: Conjunctivae and EOM are normal. Cardiovascular: Normal rate, regular rhythm, S1 normal, S2 normal and normal heart sounds. Exam reveals no gallop and no friction rub. No murmur heard. Pulmonary/Chest: Effort normal and breath sounds normal. No respiratory distress. She has no wheezes. She has no rales. Abdominal: Soft. Normal appearance and bowel sounds are normal. There is no tenderness. There is noCVA tenderness. Neurological: She is alert and oriented to person, place, and time. Skin: Skin is warm and dry. Results for orders placed or performed in visit on 11/06/18 (from the past 24 hour(s)) POC URINALYSIS DIPSTICK NON AUTOMATED Result Value Ref Range COLOR UA Yellow Pale to Dark Yellow CLARITY UA Clear Clear GLUCOSE UA Negative Negative, Normal BILIRUBIN UA Negative Negative KETONES UA Negative Negative SPECIFIC GRAVITY UA 1.020 1.003 - 1.035 BLOOD UA Trace (A) Negative PH UA 6.0 5.0 - 8.0 PROTEIN UA Negative Negative UROBILINOGEN UA Normal <2.0 mg/dL NITRITE UA Negative Negative LEUKOCYTE ESTERASE UA Trace (A) Negative KIT LOT NUMBER [id number] KIT EXPIRATION DATE ASSESSMENT and PLAN: Rhonda was seen today for urinary frequency. Diagnoses and all orders for this visit: Cystitis with hematuria - URINE CULTURE; Future - ciprofloxacin HCl (CIPRO) 500 mg tablet; Take 1 Tablet (500 mg) by mouth 2 times daily for 7 days. - URINE CULTURE Dysuria - POC URINALYSIS DIPSTICK NON AUTOMATED Cystitis-Cipro x 7 days. Start and finish antibiotic. During your urinary tract infection, increaseoral fluids, may take tylenol. Caffeine is a bladder irritant and you should avoid it during treatment if possible. Preventive measures include wiping front to back, empty bladder frequently, urinateafter intercourse. Avoid bubble baths. Culture sent. Call if not improved in 48-72 hours. Go to ER if vomiting, fevers, flank pain, fluid retention. documented in this encounter Miscellaneous Notes * Patient Instructions - Pam Graves NP - 11/06/2018 2:37 PM CDT Images from the original note were not included. [employer]. Urinary Tract Infection in Women: Care Instructions Your Care Instructions A urinary tract infection, or UTI, is a general term for an infection anywhere between the kidneys and the urethra (where urine comes out). Most UTIs are bladder infections. They often cause pain or burning when you urinate. UTIs are caused by bacteria and can be cured with antibiotics. Be sure to complete your treatment so that the infection goes away. Follow-up care is a roque part of your treatment and safety. Be sure to make and go to all appointments, and call your doctor if you are having problems. It's also a good idea to know your test resultsand keep a list of the medicines you take. How can you care for yourself at home? ?? Take your antibiotics as directed. Do not stop taking them just because you feel better. You need to take the full course of antibiotics. ?? Drink extra water and other fluids for the next day or two. This may help wash out the bacteria that are causing the infection. (If you have kidney, heart, or liver disease and have to limit fluids, talk with your doctor before you increase your fluid intake.) ?? Avoid drinks that are carbonated or have caffeine. They can irritate the bladder. ?? Urinate often. Try to empty your bladder each time. ?? To relieve pain, take a hot bath or lay a heating pad set on low over your lower belly or genital area. Never go to sleep with a heating pad in place. To prevent UTIs ?? Drink plenty of water each day. This helps you urinate often, which clears bacteria from your system. (If you have kidney, heart, or liver disease and have to limit fluids, talk with your doctor before you increase your fluid intake.) ?? Urinate when you need to. ?? Urinate right after you have sex. ?? Change sanitary pads often. ?? Avoid douches, bubble baths, feminine hygiene sprays, and other feminine hygiene products that have deodorants. ?? After going to the bathroom, wipe from front to back. When should you call for help? Call your doctor now or seek immediate medical care if: ? Symptoms such as fever, chills, nausea, or vomiting get worse or appear for the first time. ? You have new pain in your back just below your rib cage. This is called flank pain. ? There is new blood or pus in your urine. ? You have any problems with your antibiotic medicine. ??Watch closely for changes in your health, and be sure to contact your doctor if: ? You are not getting better after taking an antibiotic for 2 days. ? Your symptoms go away but then come back. Where can you learn more? Go to https://www.iValidate.me.net/patientEd Enter K848 in the search box to learn more about Urinary Tract Infection in Women: Care Instructions. Current as of: June 11, 2018 Content Version: 12.0 ?? 1312-5267 [employer]. Care instructions adapted under license by your healthcare professional. If you have questions about a medical condition or this instruction, always ask your healthcare professional. These instructions may not represent the values of this healthcare organization. [employer] disclaims any warranty or liability for your use of this information. documented in this encounter Plan of Treatment Not on file documented as of this encounter Procedures Procedure Name Priority Date/Time Associated Diagnosis Comments URINE CULTURE Routine 11/06/2018 2:35 PM CDT Cystitis with hematuria POC URINALYSIS DIPSTICK NON AUTOMATED Routine 11/06/2018 2:29 PM CDT Dysuria documented in this encounter Results * URINE CULTURE (11/06/2018 2:35 PM CDT) URINE CULTURE Note [facility] Comment: ?? TESTS ? RESULT ??FLAG ??UNITS ?REF RANGE ??LAB Urine Culture, Ro... ??Note ?01 ?? Final report Result 1 ?Note ?01 ?? Culture shows less than 10,000 colony forming units of bacteria per ?? milliliter of urine. This colony count is not generally considered ?? to be clinically significant. ?FLAG LEGEND: ?L-Low Normal,H-High Normal,LL-Alert Low,HH-Alert High ?<-Panic Low,>-Panic High,A-Abnormal,AA-Critical Abnormal Performed at: [address] ?[facility] ?? [address], [place], [place] ??[address] ?? John Ac PhD, Urine URINE SPECIMEN OBTAINED BY CLEAN CATCH PROCEDURE / Unknown 11/06/2018 2:35 PM CDT 11/06/2018 Narrative [facility] - 11/08/2018 3:35 AM CDT Performed at: ??01 - [facility] [address] ??[id number] Canopy Stringer: John Ac PhD, Phone: ??[phone] Pam Graves NP MICROBIOLOGY - GENERAL ORDERABLES Performing Organization Address [facility]/ZIP Co de Phone Number [facility] [phone] * (ABNORMAL) POC URINALYSIS DIPSTICK NON AUTOMATED (11/06/2018 2:29 PM CDT) COLOR UA Yellow Pale to Dark Yellow [facility] CLARITY UA Clear Clear [facility] GLUCOSE UA Negative Negative, Normal [facility] BILIRUBIN UA Negative Negative [facility] KETONES UA Negative Negative [facility] SPECIFIC GRAVITY UA 1.020 1.003 - 1.035 [facility] BLOOD UA Trace(A) Negative [facility] PH UA 6.0 5.0 - 8.0 [facility] PROTEIN UA Negative Negative [facility] UROBILINOGEN UA Normal <2.0 mg/dL [facility] NITRITE UA Negative Negative [facility] LEUKOCYTE ESTERASE UA Trace(A) Negative [facility] KIT LOT NUMBER POC [id number] [facility] KIT EXPIRATION DATE POC [id number] [facility] Urine 11/06/2018 2:29 PM CDT Pam Graves NP POINT OF CARE T ESTING Performing Organization Address City/[facility] Co de Phone Number [facility] CLIA# [id number] [address] [place], [place] [address] [place] [address] documented in this encounter Visit Diagnoses Diagnosis Cystitis with hematuria- Primary Cystitis, unspecified Dysuria documented in this encounter Care Teams Boiler House Inspector Relationship Specialty Start Date End Date Adalberto Morgan MD PCP - General Internal Medicine 12/19/15 05/01/22 documented as of this encounter
--- OUTSIDE RECORDS SUMMARY | 2024-06-16 22:53 | XMS_ITS | Encounter Summary ---
Author Organization [facility] Address [address] [place] [address] Care Team Providers Care Property Assistant Name Role Phone Adalberto Morgan MD Primary Care Provider [phone] Reason for Referral * Eval and Treat (Routine) - Closed Specialty Diagnoses / Procedures Referred By Catracho aguilar Referred To Contact Neurology Diagnoses Numbness Adalberto Morgan MD [address] [place] [phone] [facility] Neurology Hayti [id number] [facility] [address] [place] [address] Referral ID Status Reason Start Date Expiration Date V isits Requested Visits Authorized [id number] Closed CRS To Schedule (STL) 09/25/2017 09/25/2018 1 1 Reason for Visit * Reason Onset Date Comments Results 09/25/2017 Encounter Details Date Type Department Care Team (Late st Contact Info) Description 09/25/2017 Telephone [facility] Internal Medicine [address] [address] Adalberto Morgan MD [address] [place] [phone] Results Social History Tobacco Use Types Packs/Day Years [...] encounter Miscellaneous Notes * Telephone Encounter - Adalberto Morgan MD - 09/25/2017 6:48 PM CDT Nerve study normal Still with sx documented in this encounter Plan of Treatment Scheduled Referrals Name Type Priority Associated Diagnoses Orde r Schedule AMB REFERRAL TO NEUROLOGY Outpatient Referral Routine Numbness Ordered: 09/25/2017 documented as of this encounter Visit Diagnoses Diagnosis Numbness- Primary Disturbance of skin sensation documented in this encounter Care Teams Property Assistant Relationship Specialty Start Date End Date Adalberto Morgan MD PCP - General Internal Medicine 12/19/15 05/01/22 documented as of this encounter
--- OUTSIDE RECORDS SUMMARY | 2024-06-16 22:53 | XMS_ITS | Encounter Summary ---
Author Organization [email or web address] [facility] Address [address] [place] [address] Care Team Providers Care Business Department Chair Name Role Phone Soheila Romero MD Primary Care Provider [phone] Reason for Referral * Radiology Services (Routine) - Open Specialty Diagnoses / Procedures Referred By Contac t Referred To Contact Diagnoses Breast cancer screening by mammogram Procedures MAMMO 3D CHU SCREEN BILAT W OR WO CAD CHG SCREENING MAMMOGRAPHY BI 2-VIEW BREAST INC CAD CHG SCREENING DIGITAL BREAST TOMOSYNTHESIS BI Kay Gomez MD [address] [place] [address] Referral ID Status Reason Start Date Expiration Date Visits Re quested Visits Authorized [id number] Open 11/15/2023 12/15/2024 1 1 Reason for Visit * Reason Comments Moods and Medication follow up Patient s tates wegovy doesn't seem as affective as the zepbound. Still has sugar cravings with the wegovy.Patient states seeing the counselor has helped the moods and stress some, and is working on it. Encounter Details Date Type Department Care Team (Late st Contact Info) Description 11/15/2023 1:00 PM CDT Office Visit [facility] at Work [employer] [place] [address] [place] [address] Kay Gomez MD [address] [place] [address] Severe obesity (BMI 35.0-39.9) with comorbidity (Primary Dx); Acute reaction to situational stress; Breast cancer screening by mammogram Social History [...] Sign Reading Time Taken Comments Blood Pressure 112/68 11/15/2023 1:00 PM CDT Pulse 96 11/15/2023 1:00 PM CDT Temperature 36.9 ??C (98.5 ??F) 11/15/2023 1:00 PM CD T Respiratory Rate 16 11/15/2023 1:00 PM CDT Oxygen Saturation 99% 11/15/2023 1:00 PM CDT Inhaled Oxygen Concentration - - Weight 73.5 kg (162 lb) 11/15/2023 1:00 PM CDT Height 149.9 cm (4' 11 ) 11/15/2023 1:00 PM CDT Body Mass Index 32.72 11/15/2023 1:00 PM CDT documented in this encounter Progress Notes * Kay Gomez MD - 11/15/2023 1:10 PM CDT HISTORY OF PRESENT ILLNESS Rhonda Devlin, a 43 y.o. female presents with a Chief Complaint of Moods and Medication follow up(Patient states wegovy doesn't seem as affective as the zepbound. Still has sugar cravings with thewegovy.Patient states seeing the counselor has helped the moods and stress some, and is working on it.) Subjective HPI Obesity- Weight- states down 5 lbs so it must be working . Switched from Zepbound to Wegovy due toavailability (and maybe insurance issue with cost). Wegovy does not stop her sweet cravings and does not curb her appetite as well as Zepbound. For now, feels wegovy is ok. Ideally would like to consider Zepbound in the future when availability is consistently dependeable. Denies significant SE Stress/ anxiety- feels she has gained a better understanding as to source of her stress when exploring her relationship with her mother as she was growing up /in adulthood Therapy is helping her understand things better and learn to react/ respond differently. Learning that she does not have to fix everything for others for them not to be upset with her. Overall, feels she is handling her stressors REVIEW OF SYSTEMS Review of Systems Cardiovascular: Negative for chest pain, palpitations and leg swelling. Gastrointestinal: Positive for constipation (helped with Magnesium prn). Negative for abdominal pain. Psychiatric/Behavioral: HPI Objective PHYSICAL EXAM BP 112/68 (BP Location: Right arm, Patient Position (BP): Sitting, BP Cuff Size: Adult) Pulse 96 Temp 98.5 ??F (36.9 ??C) (Tympanic) Resp 16 Ht 4' 11 (1.499 m) Wt 73.5 kg (162 lb) LMP 11/07/2023 (Exact Date) SpO2 99% BMI 32.72 kg/m?? Physical Exam Constitutional: Appearance: She is obese. Cardiovascular: Rate and Rhythm: Normal rate and regular rhythm. Heart sounds: Normal heart sounds. Pulmonary: Effort: Pulmonary effort is normal. Breath sounds: Normal breath sounds. Abdominal: General: Bowel sounds are normal. Palpations: There is no mass. Tenderness: There is no abdominal tenderness. Neurological: Mental Status: She is alert. Psychiatric: Mood and Affect: Mood normal. Thought Content: Thought content normal. Judgment: Judgment normal. Procedures Assessment ASSESSMENT and PLAN: ICD-10-CM ICD-9-CM 1. Severe obesity (BMI 35.0-39.9) with comorbidity E66.01 278.01 Increase Wegovy to 0.5mg dose injection q 7 days Return 4 weeks 2. Acute reaction to situational stress F43.0 308.9 Continue with counseling 3. Breast cancer screening by mammogram Z12.31 V76.12 MAMMO 3D CHU SCREEN BILAT W OR WO CAD Aware due for colonoscopy- she prefers to hold off the order until next visit documented in this encounter Miscellaneous Notes * Addendum Note - Kay Gomez MD - 11/15/2023 4:40 PM CDTAddended by: KAY GOMEZ on: 11/15/2023 04:40 PM Modules accepted: Orders documented in this encounter Plan of Treatment Not on file documented as of this encounter Results * MAMMO 3D CHU SCREEN BILAT W OR WO CAD (12/20/2023) Anatomical Region Laterality Modality Breast Bilateral Other Kay Gomez MD MAMMO ORDERABLES documented in this encounter Visit Diagnoses Diagnosis Severe obesity (BMI 35.0-39.9) with comorbidity- Primary Acute reaction to situational stress Breast cancer screening by mammogram documented in this encounter Additional Health Concerns Assessment Noted Time PHQ-9 Depression Total Score: 2 11/15/19 24 1:00 PM CDT documented as of this encounter Care Teams Business Department Chair Relationship Specialty Start Date End Date Soheila Romero MD [address] [place] [id number] PCP - General Family Practice 05/02/22 12/12/23 documented as of this encounter
--- OUTSIDE RECORDS SUMMARY | 2024-06-16 22:53 | XMS_ITS | Encounter Summary ---
Author Organization [employer] Address [address] [place] [address] Care Team Providers Care Well Tester Name Role Phone Soheila Romero MD Primary Care Provider [phone] Reason for Visit * Reason Onset Date Comments [facility] [place] Appt 12/02/2023 1st contact to r soto cancelled appointment. Left message. Encounter Details Date Type Department Care Team (Late st Contact Info) Description 12/02/2023 Telephone [facility] at Work [employer] [place] [address] [place] [address] Leandro Paul [address] [place] [address] [facility] [place] Appt (1st contact to reschedule cancelled appointment. Left message.) [...] documented as of this encounter Care Teams Well Tester Relationship Specialty Start Date End Date Soheila Romero MD [address] [place] [address] PCP - General Family Practice 05/02/22 12/12/23 documented as of this encounter
--- OUTSIDE RECORDS SUMMARY | 2024-06-16 22:53 | XMS_ITS | Encounter Summary ---
Author Organization [facility] Address [address] [place] [address] Care Team Providers Care Clay Dry Press Mixer Operator Name Role Phone Adalberto Morgan MD Primary Care Provider Reason for Visit * Reason Comments Mass Encounter Details Date Type Department Care Team (Late st Contact Info) Description 02/05/2019 1:30 PM CDT Office Visit [facility] at Work [employer] [address] [place] [address] Pam Graves, NEETA [address] [facility] [place] [address] [place] [address] Granuloma of skin (Primary Dx); Weight gain Social History Tobacco Use Types Packs/Day Years [...] Sign Reading Time Taken Comments Blood Pressure 110/72 02/05/2019 1:16 PM CDT Pulse 90 02/05/2019 1:16 PM CDT Temperature 37.2 ??C (98.9 ??F) 02/05/2019 1:16 PM CD T Respiratory Rate 16 02/05/2019 1:16 PM CDT Oxygen Saturation 98% 02/05/2019 1:16 PM CDT Inhaled Oxygen Concentration - - Weight 68 kg (150 lb) 02/05/2019 1:16 PM CDT Height 151.1 cm (4' 11.5 ) 02/05/2019 1:16 PM CD T Body Mass Index 29.79 02/05/2019 1:16 PM CDT documented in this encounter Progress Notes * Pam Graves, NEETA - 02/05/2019 1:52 PM CDT Images from the original note were not included. HISTORY OF PRESENT ILLNESS Rhonda Devlin is a 38 y.o. female who presents for Chief Complaint Patient presents with ??? Mass Left thigh raised mass has been there a few weeks with rapid growth and when exposed to friction itbleeds easily. Started out as a reddish lesion. Wt gain over the past 6 months that as been involuntary without change in eating or activity. Denies swelling, abd pain or bloating. Voiding as usual. Does not recall last pap. Has been getting only 3.5 hours of sleep a night due to work hours with increased stressors this past year. Denies feelingdepressed or anxious. Has not been on Prednisone for nephrotic syndrome for the past 3 years. Feelslike her wt gain has been evenly distributed to her abd, flank and thighs. Gained 13 lbs since 09/05/17 per chart. Past Medical History: Diagnosis Date ??? History of blood transfusion 06/24/2005 ??? Kidney stone 06/24/2011 ??? Nephrotic syndrome 06/24/2005 ??? Nephrotic syndrome 06/24/2012 ??? Nephrotic syndrome 12/12/2015 ??? Vaginal delivery 11/19/1999 ??? Vaginal delivery 02/09/2002 Current Outpatient Medications Medication Sig Dispense Refill ??? lisinopril (PRINIVIL) 5 mg tablet 1/2 tab daily. 90 Tablet 0 ??? ergocalciferol (VITAMIN D2) 50,000 unit capsule Take 1 Capsule (50,000 Units) by mouth every 7 days. 12 Capsule 3 No current facility-administered medications for this visit. Allergies Allergen Reactions ??? Ampicillin Rash BP 110/72 (BP Location: Left arm, Patient Position (BP): Sitting, BP Cuff Size: Adult) Pulse 90 Temp 98.9 ??F (37.2 ??C) (Tympanic) Resp [...] Failure Maternal Grandmother ??? Stroke Maternal Grandfather Shakeel Ahuja ??? Sudden Paternal Grandfather ??? Sudden Father Shaquille ??? Hypertension Father Shaquille ??? Kidney Disease Father Shaquille ??? No Known Problems Mother ??? No Known Problems Brother ??? No Known Problems Sister ??? No Known Problems Sister ??? Other Daughter Terri PCOS ??? No Known Problems Son Current medications and allergies were reviewed and updated in computerized patient record. [facility] [address] [place] [address] PHARMAC[address] [place], [place] - [address] [facility] Providers: Patient Care Team: Adalberto Morgan MD as PCP - General (Internal Medicine) Prev 09/05/17 Vital signs/Tobacco use BP 110/72 (BP Location: Left arm, Patient Position (BP): Sitting, BP Cuff Size: Adult) Pulse 90 Temp 98.9 ??F (37.2 ??C) (Tympanic) Resp 16 Ht 4' 11.5 (1.511 m) Wt 68 kg (150 lb) LMP 01/13/2019 SpO2 98% BMI 29.79 kg/m?? Blood Pressure BP Readings from Last 3 Encounters: 02/05/19 110/72 11/25/18 118/74 11/06/18 110/86 BMI POC (QM) Body mass index is 29.79 kg/m??. Normal BMI range: 18 & older: > or = 18.5 and < 25 Abnormal high BMI: Patient counseled on lifestyle modifications including weight loss and daily exercise. The 10-year CVD risk score (Christal'Agostino et al., 2008) is: 1.7% Values used to calculate the score: Age: [...] Review of Systems Constitutional: Positive for malaise/fatigue. Wt gain HENT: Negative. Respiratory: Negative. Cardiovascular: Negative. Gastrointestinal: Negative. Negative for abdominal pain, constipation, diarrhea, nausea and vomiting. Genitourinary: Negative. Negative for dysuria, flank pain, frequency, hematuria and urgency. Musculoskeletal: Negative. Negative for joint pain and myalgias. Skin: Lesion to left thigh Neurological: Negative. Negative for headaches. Migraines headaches occasionally. Had a burst of 3 consecutive headaches 2 mo ago and now only occasionally. Psychiatric/Behavioral: Negative. Negative for depression, hallucinations, substance abuse and suicidal ideas. The patient is not nervous/anxious and does not have insomnia. Objective PHYSICAL EXAM Physical Exam Constitutional: She is oriented to person, place, and time. She appears well- developed and well-nourished. HENT: Head: Normocephalic and atraumatic. Nose: Nose normal. Eyes: Conjunctivae and EOM are normal. Neck: No thyroid mass and no thyromegaly present. Cardiovascular: Normal rate, regular rhythm, S1 normal, S2 normal and normal heart sounds. Exam reveals no gallop and no friction rub. No murmur heard. No edema to LE or flank area. Pulmonary/Chest: Effort normal and breath sounds normal. No respiratory distress. She has no wheezes. She has no rales. Abdominal: Soft. Normal appearance and bowel sounds are normal. She exhibits no distension, no fluid wave and no ascites. There is no hepatosplenomegaly. There is no tenderness. Neurological: She is alert and oriented to person, place, and time. Skin: Skin is warm and dry. Left mid thigh- 5 mm raised erythematous mass, granuloma appearance. Non tender, non friable with exam No results found for any visits on 02/05/19 (from the past 24 hour(s)). ASSESSMENT and PLAN: Rhonda was seen today for mass. Diagnoses and all orders for this visit: Granuloma of skin Weight gain - CBC WITH DIFFERENTIAL - COMPREHENSIVE METABOLIC PANEL - TSH Return tomorrow for lesion excision-wear loose fitting shorts. Discussed risk for scarring. Wt gain-check labs. Suspect overall stress and lack of sleep are contributing to increased cortisoland inability to lose wt. Exam neg. Discussed dietitian referral, declined. Will monitor, has change in shift coming up with less hours and regular routine. documented in this encounter Plan of Treatment Not on file documented as of this encounter Procedures Procedure Name Priority Date/Time Associated Diagnosis Comments CBC WITH DIFFERENTIAL Routine 02/05/2019 1:59 PM CDT Weight gain TSH Routine 02/05/2019 1:59 PM CDT Weight gain COMPREHENSIVE METABOLIC PANEL Routine 02/05/2019 1:59 PM CDT Weight gain documented in this encounter Results * TSH (02/05/2019 1:59 PM CDT) TSH 2.080 0.450 - 4.500 uIU/mL [facility] Blood 02/05/2019 1:59 PM CDT 02/06/2019 Narrative [facility] - 02/07/2019 5:35 AM CDT Performed at: ??01 - [facility] [address] ??[id number] Cable Installer Repairer: John Ac PhD, Phone: ??[phone] Pam Graves SAW REPAIRER CHEMISTRY ORDER LUIGI [facility] [phone] * COMPREHENSIVE METABOLIC PANEL (02/05/2019 1:59 PM CDT) GLUCOSE 75 65 - 99 mg/dL [facility] Comment: Specimen received in contact with cells. No visible hemolysis present. However GLUC may be decreased and K increased. Clinical correlation indicated. BUN 16 6 - 24 mg/dL [facility] CREATININE 0.89 0.57 - 1.00 mg/dL [facility] GFR 81 >59 mL/min/1.7 3 [facility] GFR, 94 >59 mL/min/1.7 3 [facility] BUN/CREAT RATIO 18 9 - 23 [facility] SODIUM 139 134 - 144 mmol/L [facility] POTASSIUM 4.3 3.5 - 5.2 mmol/L [facility] Comment: Specimen received in contact with cells. No visible hemolysis present. However GLUC may be decreased and K increased. Clinical correlation indicated. CHLORIDE 104 96 - 106 mmol/L [facility] CO2 20 20 - 29 mmol/L [facility] CALCIUM 9.0 8.7 - 10.2 mg/dL [facility] TOTAL PROTEIN 7.2 6.0 - 8.5 g/dL [facility] ALBUMIN 4.3 3.5 - 5.5 g/dL [facility] GLOBULIN 2.9 1.5 - 4.5 g/dL [facility] ALBUMIN/GLOBULIN RATIO 1.5 1.2 - 2.2 [facility] BILIRUBIN TOTAL 0.6 0.0 - 1.2 mg/dL [facility] ALKALINE PHOSPHATASE 95 39 - 117 IU/L [facility] AST 14 0 - 40 IU/L [facility] ALT 10 0 - 32 IU/L [facility] Blood 02/05/2019 1:59 PM CDT 02/06/2019 Narrative [facility] - 02/07/2019 6:36 AM CDT Performed at: ??01 - [facility] [address] ??[id number] [employer] Installer Repairer: John Ac PhD, Phone: ??[phone] Pam Graves NP CHEMISTRY ORDER LUIGI [facility] [phone] * (ABNORMAL) CBC WITH DIFFERENTIAL (02/05/2019 1:59 PM CDT) WBC 10.8 3.4 - 10.8 x10E3/uL [facility] RBC 4.75 3.77 - 5.28 x10E6/uL [facility] HEMOGLOBIN 14.7 11.1 - 15.9 g/dL [facility] HEMATOCRIT 43.8 34.0 - 46.6 % [facility] MCV 92 79 - 97 fL [facility] MCH 30.9 26.6 - 33.0 pg [facility] MCHC 33.6 31.5 - 35.7 g/dL [facility] RDW 12.8 12.3 - 15.4 % [facility] PLATELETS 307 150 - 450 x10E3/uL [facility] NEUTROPHIL 67 Not Estab. % [facility] LYMPHOCYTES 24 Not Estab. % [facility] MONOCYTE 5 Not Estab. % [facility] EOSINOPHILS 4 Not Estab. % [facility] BASOPHILS 0 Not Estab. % [facility] NEUTROPHIL ABSOLUTE 7.2(H) 1.4 - 7.0 x10E3/uL [facility] LYMPHOCYTE ABSOLUTE 2.5 0.7 - 3.1 x10E3/uL [facility] MONOCYTE ABSOLUTE 0.5 0.1 - 0.9 x10E3/uL [facility] EOSINOPHIL ABSOLUTE 0.5(H) 0.0 - 0.4 x10E3/uL [facility] BASOPHILS ABSOLUTE 0.0 0.0 - 0.2 x10E3/uL [facility] IMMATURE GRANULOCYTES 0 Not Estab. % [facility] IMMATURE GRANULOCYTES ABSOLUTE 0.0 0.0 - 0.1 x10E3/uL [facility] Blood 02/05/2019 1:59 PM CDT 02/06/2019 Narrative [facility] - 02/07/2019 4:35 AM CDT Performed at: ?? - [facility] [address] ??[id number] Cable Installer Repairer: John Ac PhD, Phone: ??[phone] Pam Graves NP HEMATOLOGY CHICA GIBSON [facility] [phone] documented in this encounter Visit Diagnoses Diagnosis Granuloma of skin- Primary Pyogenic granuloma of skin and subcutaneous tissue Weight gain Abnormal weight gain documented in this encounter Care Teams Clay Dry Press Mixer Operator Relationship Specialty Start Date End Date Adalberto Morgan MD PCP - General Internal Medicine 12/19/15 05/01/22 documented as of this encounter
--- OUTSIDE RECORDS SUMMARY | 2024-06-16 22:53 | XMS_ITS | Encounter Summary ---
Author Organization [facility] Address [address] [place] [address] Care Team Providers Care Insurance Sales Representative Name Role Phone Adalberto Morgan MD Primary Care Provider [phone] Reason for Referral * Outpatient Services (Routine) - Closed Specialty Diagnoses / Procedures Referred By Catracho aguilar Referred To Contact Neurology Diagnoses Idiopathic peripheral neuropathy Procedures EMG WITH NERVE CONDUCTION Adalberto Morgan MD [address] [place] [phone] Rhoda Mckeon MD [address] [place] [phone] Referral ID Status Reason Start Date Expiration Date V isits Requested Visits Authorized [id number] Closed [facility] CTS 09/05/2017 10/06/2018 1 1 Reason for Visit * Outpatient Services (Routine) - Closed Specialty Diagnoses / Procedures Referred By Catracho aguilar Referred To Contact Neurology Diagnoses Idiopathic peripheral neuropathy Procedures EMG WITH NERVE CONDUCTION Adalberto Morgan MD [address] [place] [phone] Rhoda Mckeon MD [address] [place] [phone] Referral ID Status Reason Start Date Expiration Date V isits Requested Visits Authorized [id number] Closed [facility] CTS 09/05/2017 10/06/2018 1 1 Encounter Details Date Type Department Care Team (Latest Contact Info) Description 09/24/2017 1:24 PM CDT - 09/24/2017 11:59 PM CDT Hospital Encounter [facility] Support Services EMG S [facility] [address] [place] [address] Adalberto Morgan MD [address] [phone] Rhoda Mckeon MD [address] [facility] [address] [address] Discharge Disposition: Home or Self Care Social History Tobacco Use Types Packs/Day Years [...] on file documented as of this encounter Medications at Time of Discharge Medication Sig Dispensed Refills Start Date End Date lisinopril (PRINIVIL) 5 mg tablet Take 1 Tablet (5 mg) by mouth daily. 90 Tablet 3 09/05/2017 05/27/2018 ergocalciferol (VITAMIN D2) 50,000 unit capsule Take 1 Capsule (50,000 Units) by mouth every 7 days. 12 Capsule 3 11/22/2016 06/11/2018 buPROPion HCl (WELLBUTRIN SR) 100 mg Sustained Release 12 hour tablet Take 1 Tablet (100 mg) by mouth daily. 30 Tablet 3 11/21/2016 05/27/2018 furosemide (LASIX) 20 mg tablet Take 20 mg by mouth daily. 05/27/2018 documented as of this encounter Procedure Notes * Rhoda Mckeon MD - 09/25/2017 12:54 AM CDTAssociated Order(s): EMG WITH NERVE CONDUCTION [place], [place] [address] EMG/NCS CSN: [id number] DATE OF SERVICE: 09/24/2017 BRIEF HISTORY 36-year-old female presents with a 6-month history of intermittent hand tingling and pain. She denies any nocturnal awakening related to hand symptoms. Study was requested for further evaluation of polyneuropathy and entrapment neuropathies in the bilateral upper limbs. PHYSICAL EXAMINATION Normal muscle strength and symmetric deep tendon reflexes. NERVE CONDUCTION STUDY 1. Bilateral median motor studies recorded on the abductor pollicis brevis showed normal distal motor latencies, CMAP amplitudes, and motor nerve conduction velocities. 2. Bilateral ulnar motor studies recorded on the abductor digiti minimi showed normal distal motor latencies, CMAP amplitudes, and motor nerve conduction velocities. 3. Bilateral median and ulnar orthodromic transcarpal mixed studies showed normal peak latencies, peak latencies, amplitudes, and conduction velocities. 4. Bilateral median to radial peak latency comparison studies utilizing ring electrodes recording on digit 1 showed no significant latency difference. 5. Bilateral radial antidromic sensory studies showed normal peak latencies, SNAP amplitudes, and sensory nerve conduction velocities. EMG Concentric needle EMG of the bilateral abductor pollicis brevis, first dorsal interosseous, abductor digiti minimi, pronator teres, and flexor carpi ulnaris muscles showed normal insertional activity, no abnormal spontaneous activity, normal motor unit potentials, and normal recruitment. IMPRESSION This is a normal electrophysiological study with no evidence of polyneuropathy or entrapment neuropathies in the bilateral upper limbs. WA:MEDQ DID: [id number] Dictated by: Rhoda Mckeon M.D. cc: Adalberto Morgan MD documented in this encounter Plan of Treatment Not on file documented as of this encounter Procedures Procedure Name Priority Date/Time Associated Diagnosis Comments EMG WITH NERVE CONDUCTION Routine 09/25/2017 12:54 AM CDT Idiopathic peripheral neuropathy documented in this encounter Results * EMG WITH NERVE CONDUCTION (09/25/2017 12:54 AM CDT) Narrative Procedure Note Rhoda Mkceon MD - 09/25/2017 12:54 AM CDT [place], [place] [address] EMG/NCS CSN: [id number] DATE OF SERVICE: 09/24/2017 BRIEF HISTORY 36-year-old female presents with a 6-month history of intermittent handtingling and pain. She denies any nocturnal awakening related to handsymptoms. Study was requested for further evaluation of polyneuropathyand entrapment neuropathies in the bilateral upper limbs. PHYSICAL EXAMINATION Normal muscle strength and symmetric deep tendon reflexes. NERVE CONDUCTION STUDY 1. Bilateral median motor studies recorded on the abductor pollicis brevisshowed normal distal motor latencies, CMAP amplitudes, and motor nerveconduction velocities. 2. Bilateral ulnar motor studies recorded on the abductor digiti minimishowed normal distal motor latencies, CMAP amplitudes, and motor nerveconduction velocities. 3. Bilateral median and ulnar orthodromic transcarpal mixed studies showednormal peak latencies, peak latencies, amplitudes, and conductionvelocities. 4. Bilateral median to radial peak latency comparison studies utilizingring electrodes recording on digit 1 showed no significant latencydifference. 5. Bilateral radial antidromic sensory studies showed normal peaklatencies, SNAP amplitudes, and sensory nerve conduction velocities. EMG Concentric needle EMG of the bilateral abductor pollicis brevis, firstdorsal interosseous, abductor digiti minimi, pronator teres, and flexorcarpi ulnaris muscles showed normal insertional activity, no abnormalspontaneous activity, normal motor unit potentials, and normalrecruitment. IMPRESSION This is a normal electrophysiological study with no evidence ofpolyneuropathy or entrapment neuropathies in the bilateral upper limbs. WA:MEDQ DID:[id number] Dictated by: Rhoda Mckeon M.D. cc: Adalberto Morgan MD Adalberto Morgan MD [facility] documented in this encounter Visit Diagnoses Diagnosis Idiopathic peripheral neuropathy Unspecified hereditary and idiopathic peripheral neuropathy documented in this encounter Care Teams Insurance Sales Representative Relationship Specialty Start Date End Date Adalberto Morgan MD PCP - General Internal Medicine 12/19/15 05/01/22 documented as of this encounter
--- OUTSIDE RECORDS SUMMARY | 2024-06-16 22:53 | XMS_ITS | Encounter Summary ---
Author Organization [facility] Address [address] [place] [address] Care Team Providers Care Purchasing Intern Name Role Phone Soheila Romero MD Primary Care Provider [phone] Encounter Details Date Type Department Care Team (Late st Contact Info) Description 07/26/2023 External Device Data STL ABSTRACTION Provider, Abstract [...] on filedocumented in this encounter Care Teams Purchasing Intern Relationship Specialty Start Date End Date Soheila Romero MD [address] [place] [phone] PCP - General Family Practice 05/02/22 12/12/23 documented as of this encounter
--- OUTSIDE RECORDS SUMMARY | 2024-06-16 22:53 | XMS_ITS | Encounter Summary ---
Author Organization [facility] Address [address] [place] [address] Care Team Providers Care Security Systems Technician Name Role Phone Soheila Romero MD Primary Care Provider [phone] Reason for Visit * Reason Comments Depression Anxiety Encounter Details Date Type Department Care Team (Late st Contact Info) Description 11/05/2023 2:00 PM CDT Video Visit [facility] at Work [employer] [place] [address] [place] [address] Leandro Paul [address] [place] [phone] Acute reaction to situational stress (Primary Dx) [...] encounter Progress Notes * Leandro Paul - 11/07/2023 2:52 PM CDT Collaborative Care - Follow Up Assessment Patient Name: Rhonda Devlin Date: 11/05/23 Length of Visit: 35 minutes Visit Type: Video PCP: Heather Physician Resident: Kanu Reason for Referral: Depression and Stress Symptom Check Check-in: How have things been since our last session? Not bad Current Mood: Calm Sleep: 8 hours nightly Appetite: Better now that she is back on Wegovy Medication compliance: Yes Current Stressors: Not taking psychiatric medication Substance usage: na Progress towards Goals Goals: Regain optimism Effective coping with stressors What is going well? Maintained boundaries when daughter suggested needing help for her car Any barriers to achieving your goal? Negative self-talking Mental Status Examination Rhonda Devlin presents as alert, vigilant. Her appearance is noted to be well groomed and appropriately dressed to season. Rhonda's behavior presents as cooperative. Rhonda's eye contact is noted to be good. Speech is noted to be clear , organized, and normal rate and rhythm. [place] thoughts are noted to be goal-directed, linear, and circumstantial. She reports mood to be energized and improving. Her affect is noted to be congruent with presentation. Insight and judgement are noted to be fair. Behavioral Health Measures Anxiety Score: 11 (10/17/2023 10:00 AM) Provisional Diagnosis: Acute reaction to situational stress F43.0 Patient Summary: Rhonda reports that she has been working on their finances to alleviate stress. She consolidated her debts to free up money.She said her agreed to help by not impulse spending. Rhonda said she is eating better with less appetite as a result of starting Wegovy. She triesto walk or ride her stationary bike. He current stressor is that her daughter is going to college in [place], and her car is not running well. She said when her daughter mentioned to her that she needed help with her car, she told her daughter that she is sorry, but she will not have the money tohelp her. She was commended for maintaining her financial boundaries. Rhonda compared holding hersellie accountable for mismanaging money, after their agreement to trying to be his mother. I challenged her to consider how she limited her ability to help the family financially by labeling herself as a nagging parent when she was in fact guarding their household's financial improvement plans. Georges sent a list of thinking errors for her to preview for our next session. Plan: Rhonda will focus on improving their personal basics such as hydration, nutrition, medication compliance, sleep hygiene and movement/exercise. She will also preview the list of thinking errors prior to our next session. Schedule Follow Up: Next Appointment: 12/02/23 @ 3 PM by video Discuss with Psychiatric Cushion Worker? No This encounter was completed via two-way [...] documented as of this encounter Care Teams Security Systems Technician Relationship Specialty Start Date End Date Soheila Romero MD [address] [place] [address] PCP - General Family Practice 05/02/22 12/12/23 documented as of this encounter
--- OUTSIDE RECORDS SUMMARY | 2024-06-16 22:53 | XMS_ITS | Encounter Summary ---
Author Organization [facility] Address [address] [place] [phone] Care Team Providers Care Sql Server Architect Name Role Phone Adalberto Morgan MD Primary Care Provider [phone] Reason for Visit * Reason Onset Date Comments Medication Refill 06/11/2018 Encounter Details Date Type Department Care Team (Late st Contact Info) Description 06/11/2018 Refill [facility] Internal Medicine [address] [phone] Adalberto Morgan MD [address] [place] [phone] Social History Tobacco Use Types Packs/Day Years [...] encounter Miscellaneous Notes * Telephone Encounter - Shy Marshall - 06/11/2018 1:56 PM CST MANFRED 09/05/17 No future visit WARE DEVELOPER * Telephone Encounter - Shy Marshall - 06/11/2018 1:56 PM CSTFrom: Rhonda Devlin Sent: 06/11/2018 1:18 PM FIRMWARE DEVELOPER Subject: Medication Renewal Request Rhonda Devlin would like a refill of the following medications: ergocalciferol (VITAMIN D2) 50,000 unit capsule [Adalberto Morgan MD] Preferred pharmacy: [facility] - [place], [place] - [facility] [address] Delivery method: Pickup Preferred pick-up date and time: 06/12/2018 1:18 PM Comment: WARE DEVELOPER documented in this encounter Plan of Treatment Not on file documented as of this encounter Visit Diagnoses Not on filedocumented in this encounter Care Teams Sql Server Architect Relationship Specialty Start Date End Date Adalberto Morgan MD PCP - General Internal Medicine 12/19/15 05/01/22 documented as of this encounter
--- OUTSIDE RECORDS SUMMARY | 2024-06-16 22:53 | XMS_ITS | Encounter Summary ---
Author Organization [facility] Address [address] [place] [address] Care Team Providers Care Actuary Manager Name Role Phone Soheila Romero MD Primary Care Provider [phone] Reason for Visit * Reason Comments Zepbound follow up Patient hasn't been able to get her prescription. Moods follow up Patient states with medication issues stress is not better. Encounter Details Date Type Department Care Team (Late st Contact Info) Description 10/17/2023 10:00 AM CDT Office Visit [facility] at Work [employer] [place] [address] [place] [address] Sravani Serrato, DNP [address] [place] [address] Severe obesity (BMI 35.0-39.9) with comorbidity (Primary Dx); Constipation, unspecified constipation type; Acute reaction to situational stress Social History Tobacco Use Types Packs/Day Years [...] Sign Reading Time Taken Comments Blood Pressure 116/68 10/17/2023 9:58 AM CDT Pulse 63 10/17/2023 9:58 AM CDT Temperature 36.5 ??C (97.7 ??F) 10/17/2023 9:58 AM CD T Respiratory Rate 16 10/17/2023 9:58 AM CDT Oxygen Saturation 98% 10/17/2023 9:58 AM CDT Inhaled Oxygen Concentration - - Weight 75.8 kg (167 lb) 10/17/2023 9:58 AM CDT Height 149.9 cm (4' 11 ) 10/17/2023 9:58 AM CDT Body Mass Index 33.73 10/17/2023 9:58 AM CDT documented in this encounter Progress Notes * Sravani Serrato, DNP - 10/17/2023 10:00 AM CDT OFFICE VISIT PROGRESS NOTE Chief Complaint Patient presents with Zepbound follow up Patient hasn't been able to get her prescription. Moods follow up Patient states with medication issues stress is not better. HISTORY OF PRESENT ILLNESS HPI Obesity Pt presents for zepbound f/u. 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 She finds herself snacking and craving sweets particularly in the evening. Her insurance authorization for a repeat of the 2.5mg was not approved per patient, and she was unable to find the 5mg when prescribed. She was exercising on her stationary bike weekly and had improved her diet, resulting in a loss of 11lbs. 2. Constipation - controlled currently due to not using zepbound. Regular stools several times weekly. 3. Her mood has been lower and she has not been exercising since zepbound pause. She continues to see therapist for life stressors. PMH, SH, FMH, SH reviewed as documented. CURRENT MEDICATIONS Current Outpatient Medications Medication Sig Dispense Refill semaglutide, weight loss, (WEGOVY) 0.25 mg/0.5 mL Pen Injector Inject 0.5 mL (0.25 mg) by subcutaneous injection every 7 days. 2 mL 0 [DISCONTINUED] tirzepatide, weight loss, (Zepbound) 5 mg/0.5 mL Pen Injector Inject 5 mg by subcutaneous injection every 7 days. 2 mL 0 No current facility-administered medications for this visit. ALLERGIES Allergies Allergen Reactions Ampicillin Rash TOBACCO COUNSELING She is not a tobacco/nicotine user. REVIEW OF SYSTEMS Review of Systems Constitutional: Negative. Respiratory: Negative. Cardiovascular: Negative. Gastrointestinal: Negative. Skin: Negative. BP 116/68 (BP Location: Right arm, Patient Position (BP): Sitting, BP Cuff Size: Adult) Pulse 63 Temp 97.7 ??F (36.5 ??C) (Tympanic) Resp 16 Ht 4' 11 (1.499 m) Wt 75.8 kg (167 lb) LMP 2023 (Exact Date) SpO2 98% BMI 33.73 kg/m?? PHYSICAL EXAMINATION Physical Exam Vitals reviewed. Constitutional: Appearance: She is obese. HENT: Head: Normocephalic. Right Ear: External ear normal. Left Ear: External ear normal. Nose: Nose normal. Eyes: Pupils: Pupils are equal, round, and reactive to light. Cardiovascular: Rate and Rhythm: Normal rate and regular rhythm. Pulses: Normal pulses. Heart sounds: Normal heart sounds. Pulmonary: Effort: Pulmonary effort is normal. No respiratory distress. Breath sounds: Normal breath sounds. Skin: General: Skin is warm and dry. Capillary Refill: Capillary refill takes less than 2 seconds. Neurological: General: No focal deficit present. Mental Status: She is alert and oriented to person, place, and time. Psychiatric: Thought Content: Thought content normal. ASSESSMENT Encounter Diagnoses Name Primary? Severe obesity (BMI 35.0-39.9) with comorbidity Yes Constipation, unspecified constipation type Acute reaction to situational stress ORDERS Orders Placed This Encounter semaglutide, weight loss, (WEGOVY) 0.25 mg/0.5 mL Pen Injector FOLLOW UP Discussed options for medications - pt selects wegovy for now. Discussed risks, administration, side effects. Pt to call with any questions or concerns f/u 1 month. Return in about 4 weeks (around 11/14/2023). Medications and options explained to include common side effects. Understanding of medications, course, diagnosis, and expectations were expressed by patient/guardian. Appropriate patient instructions provided . See details in AVS Pt advised to call my office in one week if not contacted with any ordered test results. Follow up as indicated. Sravani Serrato DNP [facility] [employer] [place] [address] [place] [phone] This note may have been transcribed using [employer] speaking computerized voice recognition without a human medicinal chemist. This report may or may not have been adjusted for typographical, grammatical and syntax errors. documented in this encounter Miscellaneous Notes * Patient Instructions - Sravani Serrato DNP - 10/17/2023 11:21 AM CDT Starting pt. On wegovy for weight loss. Followed up with patient to discuss medication. Pt. Is interested and would like to try this medication. Starting pt. On 0.25 mg Q7 days x 1 month. Reviewed potential side effects of medication with patient such as nausea, diarrhea, appetite decreased, vomiting, constipation, dyspepsia, abdominal pain, injection site reaction and increased gas. Plan is follow up in 4 weeks, Pt. Asked to call clinic if experiencing any side effects. RTC with any new or worsening symptoms Pt. Agrees with plan and verbalizes understanding. COntinue to see therapist as indicated. documented in this encounter Plan of Treatment Not on file documented as of this encounter Visit Diagnoses Diagnosis Severe obesity (BMI 35.0-39.9) with comorbidity- Primary Constipation, unspecified constipation type Acute reaction to situational stress documented in this encounter Additional Health Concerns Assessment Noted Time PHQ-9 Depression Total Score: 4 10/17/19 10:00 AM CDT documented as of this encounter Care Teams Actuary Manager Relationship Specialty Start Date End Date Soheila Romero MD [address] [place] [phone] PCP - General Family Practice 05/02/22 12/12/23 documented as of this encounter
--- OUTSIDE RECORDS SUMMARY | 2024-06-16 22:53 | XMS_ITS | Encounter Summary ---
Author Organization [facility] Address [address] [place] [address] Care Team Providers Care Crm Marketing Analyst Name Role Phone Soheila Romero MD Primary Care Provider [phone] Reason for Visit * Reason Comments Zepbound follow up Patient states doing well, only side effect struggling with is the constipation. Encounter Details Date Type Department Care Team (Late st Contact Info) Description 09/19/2023 9:00 AM CDT Office Visit [facility] [employer] [place] [address] [address] Jolly Bobby, ANP [phone] [place] [address] Severe obesity (BMI 35.0-39.9) with comorbidity (Primary Dx); Constipation, unspecified constipation type; Mild depression Social History Tobacco Use Types [...] Sign Reading Time Taken Comments Blood Pressure 110/68 09/19/2023 8:54 AM CDT Pulse 85 09/19/2023 8:54 AM CDT Temperature 36.3 ??C (97.4 ??F) 09/19/2023 8:54 AM CD T Respiratory Rate 18 09/19/2023 8:54 AM CDT Oxygen Saturation 99% 09/19/2023 8:54 AM CDT Inhaled Oxygen Concentration - - Weight 75.3 kg (166 lb) 09/19/2023 8:54 AM CDT Height 149.9 cm (4' 11 ) 09/19/2023 8:54 AM CDT Body Mass Index 33.53 09/19/2023 8:54 AM CDT documented in this encounter Progress Notes * Jolly Bobby, ANP - 09/19/2023 9:03 AM CDT HISTORY OF PRESENT ILLNESS Rhonda Dvelin, a 42 y.o. female presents with a Chief Complaint of Zepbound follow up (Patient states doing well, only side effect struggling with is the constipation.) Obesity-- Started zepbound 2.5 mg weekly 4 weeks ago. Notes appetite improvement with evening cravings less. Notes some cravings return about 5 days after injection. Chronic constipation has worsened on medication. She is now having bowel movements only once per week. Prior to med, BM was 2-3 times per week. She has increased her water intake from negligible to 40 ounces per day and adding foods fiber supplements. Denies abdominal pain. Meets with [facility] therapist on Saturday to discuss her challenging home situation with a who is very anxious along with some additional family dynamics. REVIEW OF SYSTEMS Review of Systems Constitutional: Positive for appetite change. Negative for chills and fever. Respiratory: Negative. Cardiovascular: Negative. Gastrointestinal: Positive for constipation. Musculoskeletal: Negative for joint swelling and myalgias. Neurological: Negative for dizziness and light-headedness. Objective PHYSICAL EXAM BP 110/68 (BP Location: Right arm, Patient Position (BP): Sitting, BP Cuff Size: Adult) Pulse 85 Temp 97.4 ??F (36.3 ??C) (Tympanic) Resp 18 Ht 4' 11 (1.499 m) Wt 75.3 kg (166 lb) LMP 09/18/2023 (Exact Date) SpO2 99% BMI 33.53 kg/m?? Physical Exam Vitals reviewed. Eyes: Conjunctiva/sclera: Conjunctivae normal. Cardiovascular: Rate and Rhythm: Normal rate and regular rhythm. Heart sounds: Normal heart sounds. Pulmonary: Effort: Pulmonary effort is normal. Breath sounds: Normal breath sounds. Abdominal: Palpations: Abdomen is soft. Tenderness: There is abdominal tenderness (very slight L upper and L lower.). There is no guarding. Musculoskeletal: Cervical back: Neck supple. Right lower leg: No edema. Left lower leg: No edema. Neurological: General: No focal deficit present. Mental Status: She is alert. Psychiatric: Mood and Affect: Mood normal. Procedures Assessment ASSESSMENT and PLAN: 1. Severe obesity (BMI 35.0-39.9) with comorbidity Increase dose to 5 mg weekly. Continue efforts towards eating less processed foods and increasing water intake. She is no longer drinking sweet drinks. - tirzepatide 5 mg/0.5 mL Pen Injector; Inject 5 mg by subcutaneous injection every 7 days. DISPENSE ZEPBOUND, PLEASE. Dispense: 2 mL; Refill: 2 Denies personal or family history of Multiple Endocrine Neoplasia syndrome type 2 (MEN 2) or medullary thyroid carcinoma ( MTC) and no personal history of pancreatitis. Warned to continue to monitor for abd pain, fever, chills, vomiting and report SHYAM. Warned to limit alcohol with this medication. 2. Constipation, unspecified constipation type Start magnesium supplement-- Zenfolio or Nature Made brands-- 100 mg daily for 4-5 days. Incresae by 100 mg increments to max of 400 mg daily. Lower dose if loose stools. Can also consider start Miralax daily dose until BM are back to 2-3 per week on steady basis. Warned if develops abdominal pain, fever chills nausea or vomiting she is to report to the emergency room. If she goes 10 days without a bowel movement she will call the office. 3. Mild depression Continue with counselor as planned. FOLLOW UP Return in about 4 weeks (around 10/17/2023) for FU wt , constipation, moods. Appropriate medications prescribed and pt instructed in risks , benefits and side effects. Appropriate patient instructions provided . See details in AVS Medications and options explained to include common side effects. Understanding of medications, course, diagnosis, and expectations were expressed by patient/guardian. Pt advised to call my office in one week if not contacted with any ordered test results. SAVANNA Yarbrough 09/19/2023 [facility] [employer] [facility] [address] [address] Some of this encounter may have been transcribed using Dragon Naturally Speaking computerized voicerecognition without a human line pilot. This report may or may not have been adjusted for typographical or medical and syntax errors. documented in this encounter Miscellaneous Notes * Patient Instructions - Jolly Bobby ANP - 09/19/2023 9:14 AM CDT Start magnesium supplement-- [place] or Nature Made brands-- 100 mg daily for 4-5 days. Incresae by 100 mg increments to max of 400 mg daily. Lower dose if loose stools. Can also consider start Miralax daily dose until BM are back to 2-3 per week on steady basis. Increase the dose of Mounjaro to 5 mg weekly. documented in this encounter Plan of Treatment Not on file documented as of this encounter Visit Diagnoses Diagnosis Severe obesity (BMI 35.0-39.9) with comorbidity- Primary Constipation, unspecified constipation type Mild depression Depressive disorder, not elsewhere classified documented in this encounter Care Teams Crm Marketing Analyst Relationship Specialty Start Date End Date Soheila Romero MD [address] [place] [address] PCP - General Family Practice 05/02/22 12/12/23 documented as of this encounter
--- OUTSIDE RECORDS SUMMARY | 2024-06-16 22:53 | XMS_ITS | Encounter Summary ---
Author Organization [facility] Address [address] [place] [address] Care Team Providers Care Algorithm Design Engineer Name Role Phone Adalberto Morgan MD Primary Care Provider Reason for Visit * Reason Comments Ear Problem Encounter Details Date Type Department Care Team (Late st Contact Info) Description 08/27/2018 9:00 AM SALES OPERATIONS ASSOCIATE Office Visit [facility] [address] [place] [address] Jaison Irwin MD NO ADDRESS ON FILE Ceruminosis, bilateral (Primary Dx) Social History Tobacco Use Types [...] Sign Reading Time Taken Comments Blood Pressure 126/84 08/27/2018 8:55 AM SALES OPERATIONS ASSOCIATE Pulse 87 08/27/2018 8:55 AM SALES OPERATIONS ASSOCIATE Temperature 36.4 ??C (97.5 ??F) 08/27/2018 8:55 AM CS T Respiratory Rate 18 08/27/2018 8:55 AM SALES OPERATIONS ASSOCIATE Oxygen Saturation 99% 08/27/2018 8:55 AM SALES OPERATIONS ASSOCIATE Inhaled Oxygen Concentration - - Weight 67.1 kg (148 lb) 08/27/2018 8:55 AM SALES OPERATIONS ASSOCIATE Height 151.1 cm (4' 11.5 ) 08/27/2018 8:55 AM CS T Body Mass Index 29.39 08/27/2018 8:55 AM SALES OPERATIONS ASSOCIATE documented in this encounter Progress Notes * Jaison Irwin MD - 08/27/2018 8:58 AM CST Rhonda Devlin is a 37 y.o. female Chief Complaint/HPI: Chief Complaint Patient presents with ??? Ear Problem Tobacco Intervention She is not a tobacco user. Depression Screen Positive: PHQ-2 score > 2 or PHQ-9 score > 9 Positive: PHQ-2 score > 2 or PHQ-9 score > 9 PHQ-2 Total: 0 (05/27/2018 2:00 PM) PHQ-9 Total: 6 (02/20/2018 7:00 AM) DEPRESSION PLAN OF CARE She was scheduled for a future appointment to do an additional evaluation Blood Pressure BP Readings from Last 3 Encounters: 08/27/18 126/84 06/11/18 124/84 05/27/18 116/72 Normal BMI Range: 18 & older: > or = 18.5 and < 25 Body mass index is 29.39 kg/m??. normal This medical record reflects the history of present illness as obtained by myself in discussion with the patient. SUBJECTIVE: Here for above problems. Ears feel clogged . undsure of wax build up that she shad in remote past or sinus. Although doesn'treally have any porfirio congestiion or draiange or sore throat. No fever. Noted over past coulpe days. ROS Review of Systems - History obtained from chart review and the patient General ROS: negative for weight changes, fever ENT ROS: positive for - hearing change and ears feel clogged negative for - headaches, nasal congestion, nasal discharge, sinus pain or sore throat Respiratory ROS: negative for cough, shortness of breath, or wheezing Cardiovascular ROS: negative for chest pain or dyspnea on exertion Allergy and medication list reviewed and updated. OBJECTIVE: She appears well, in no apparent distress. Vital signs documented in vital signs section and are reviewed. Physical Examination: General appearance - alert, well appearing, and in no distress and oriented to person, place, and time Mental status - alert, oriented to person, place, and time, normal mood, behavior, speech, dress, motor activity, and thought processes Ears - ceruminosis noted Nose - normal and patent, no erythema, discharge or polyps Mouth - mucous membranes moist, pharynx normal without lesions Neck - supple, no significant adenopathy Chest - clear to auscultation, no wheezes, rales or rhonchi, symmetric air entry Heart - normal rate, regular rhythm, normal S1, S2, no murmurs, rubs, clicks or gallops Wax plugs bialteral obscure vision of tm and canals. Ear canals irrigated clean. Canals appear normal and tm appear normal bilaterally. Patient hearing improved immediately ASSESSMENT AND PLAN: ICD-10-CM ICD-9-CM 1. Ceruminosis, bilateral H61.23 380.4 Followup visit prn S OPERATIONS ASSOCIATE documented in this encounter Miscellaneous Notes * Patient Instructions - Jaison Irwin MD - 08/27/2018 9:56 AM SALES OPERATIONS ASSOCIATE An After Visit Summary was printed and given to the patient. May use otc decongestant if needed Feel free to follow in six months for ear/ear wax evaluation S OPERATIONS ASSOCIATE documented in this encounter Plan of Treatment Not on file documented as of this encounter Visit Diagnoses Diagnosis Ceruminosis, bilateral- Primary documented in this encounter Care Teams Algorithm Design Engineer Relationship Specialty Start Date End Date Adalberto Morgan MD PCP - General Internal Medicine 12/19/15 05/01/22 documented as of this encounter
--- OUTSIDE RECORDS SUMMARY | 2024-06-16 22:53 | XMS_ITS | Encounter Summary ---
Author Organization [facility] Address [address] [place] [address] Care Team Providers Care Mobile Application Development Lead Name Role Phone Adalberto Morgan MD Primary Care Provider [phone] Reason for Referral * Eval and Treat (5-7 Days) - Closed Specialty Diagnoses / Procedures Referred By Catracho aguilar Referred To Contact Gastroenterology Diagnoses [place] [address] [place] [address] Referral ID Status Reason Start Date Expiration Date V isits Requested Visits Authorized [id number] Closed CRS To Schedule (STL) 06/11/2018 06/11/2019 1 1 ATIONS PLANNER Reason for Visit * Reason Comments Follow Up heart burn is gettin g worse Encounter Details Date Type Department Care Team (Late st Contact Info) Description 06/11/2018 10:45 AM OPERATIONS PLANNER Office Visit [facility] [employer] [address] [place] [id number] [place] [address] [place] [address] Chest discomfort (Primary Dx); Epigastric abdominal pain Social History Tobacco Use Types Packs/Day Years [...] Reading Time Taken Comments Blood Pressure 124/84 06/11/2018 10:45 AM OPERATIONS PLANNER Pulse 83 06/11/2018 10:45 AM OPERATIONS PLANNER Temperature 36.7 ??C (98 ??F) 06/11/2018 10:45 AM OPERATIONS PLANNER Respiratory Rate 18 06/11/2018 10:45 AM OPERATIONS PLANNER Oxygen Saturation 99% 06/11/2018 10:45 AM OPERATIONS PLANNER Inhaled Oxygen Concentration - - Weight 64.4 kg (142 lb) 06/11/2018 10:45 AM OPERATIONS PLANNER Height 151.1 cm (4' 11.5 ) 06/11/2018 10:[address] Body Mass Index 28.2 06/11/2018 10:45 AM OPERATIONS PLANNER documented in this encounter Progress Notes * Pam Graves, NEETA - 06/11/2018 11:05 AM CST Images from the original note were not included. HISTORY OF PRESENT ILLNESS Rhonda Devlin is a 37 y.o. female who presents for Chief Complaint Patient presents with ??? Follow Up heart burn is getting worse x 2 months having chest discomfort. Initially it was pc and intermittent. Now it is lasting at times all day. Tried Prilosec, TUMS, Mylanta without relief. Describes the feeling as discomfort-not pressure, pain non-radiating from her epigastric region to her both sides of her neck. Denies adiation to her back. Denies acid in her throat or sore throat. Denies drooling. Feels SOB, nauseated when itoccurs without diaphoresis or vomiting. Feels like it makes feel like she wants to cough. Denies coughing, SANCHEZ, ext swelling. Had diarrhea related to taking Prilosec. Denies feeling food or fluid does not pass freely into stomach. Eating does not change the discomfort. Hx of nephrotic syndrome. She is not currently on prednisone. She is not feeling particularly anxious. No family hx of heart issues. No hx of smoking, LDL in 02/08 Past Medical History: Diagnosis Date ??? History of blood transfusion 06/24/2005 ??? Kidney stone 06/24/2011 ??? Nephrotic syndrome 06/24/2005 ??? Nephrotic syndrome 06/24/2012 ??? Nephrotic syndrome 12/12/2015 ??? Vaginal delivery 11/19/1999 ??? Vaginal delivery 02/09/2002 Current Outpatient Prescriptions Medication Sig Dispense Refill ??? lisinopril (PRINIVIL) 5 mg tablet 1/2 tab daily. 90 Tablet 0 ??? ergocalciferol (VITAMIN D2) 50,000 unit capsule Take 1 Capsule (50,000 Units) by mouth every 7 days. 12 Capsule 3 No current facility-administered medications for this visit. Allergies Allergen Reactions ??? Ampicillin Rash BP 124/84 (BP Location: Left arm, Patient Position (BP): Sitting, BP Cuff Size: Adult) Pulse 83 Temp 98 ??F (36.7 ??C) (Tympanic) Resp 18 Ht 4' 11.5 (1.511 m) Wt 64.4 kg (142 lb) LMP 06/03/2018 (Approximate) SpO2 99% BMI 28.20 kg/m?? MEDICAL RECORD UPDATE Past Medical History: Diagnosis Date ??? History of blood transfusion 06/24/2005 ??? Kidney stone 06/24/2011 ??? Nephrotic syndrome 06/24/2005 ??? Nephrotic syndrome 06/24/2012 ??? Nephrotic syndrome 12/12/2015 ??? Vaginal delivery 11/19/1999 ??? Vaginal delivery 02/09/2002 Past Surgical History: Procedure Laterality Date ??? HX RENAL BIOPSY 06/24/2005 Family History Problem Relation Age of Onset ??? Heart Failure Maternal Grandmother ??? Stroke Maternal Grandfather ??? Sudden Paternal Grandfather ??? Sudden Father ??? No Known Problems Mother ??? No Known Problems Brother ??? No Known Problems Sister ??? No Known Problems Sister ??? Other Daughter PCOS ??? No Known Problems Son Current medications and allergies were reviewed and updated in computerized patient record. [facility] - [place] - [address] [facility] - [place] SE[place] - [address] [facility] Providers: Patient Care Team: Adalberto Morgan MD as PCP - General (Internal Medicine) Prev 09/05/17 EXAMINATION BP 124/84 (BP Location: Left arm, Patient Position (BP): Sitting, BP Cuff Size: Adult) Pulse 83 Temp 98 ??F (36.7 ??C) (Tympanic) Resp 18 Ht 4' 11.5 (1.511 m) Wt 64.4 kg (142 lb) LMP 06/03/2018 (Approximate) SpO2 99% BMI 28.20 kg/m?? Blood Pressure BP Readings from Last 3 Encounters: 06/11/18 124/84 05/27/18 116/72 02/20/18 106/64 BMI POC (QM) Body mass index is 28.2 kg/m??. Normal BMI range: 18 & older: > or = 18.5 and < 25 The 10-year CVD risk score (DejonAgoino, et al., 2008) is: 2.1% Values used to calculate the score: Age: 37 years Sex: Female Diabetic: No Tobacco smoker: No Systolic Blood Pressure: 124 mmHg Is BP treated: No HDL Cholesterol: 52 mg/dL Total Cholesterol: 179 mg/dL Consider Statins if 10 year risk >7.5-10% REVIEW OF SYSTEMS Review of Systems Constitutional: Negative. HENT: Negative. Respiratory: Negative. Cardiovascular: Negative. Gastrointestinal: Positive for nausea. Negative for abdominal pain, blood in stool, constipation, diarrhea, heartburn, melena and vomiting. Genitourinary: Negative. Musculoskeletal: Negative. Skin: Negative. Neurological: Negative. Negative for dizziness. Psychiatric/Behavioral: Negative. Objective PHYSICAL EXAM Physical Exam Constitutional: She is oriented to person, place, and time. She appears well- developed and well-nourished. HENT: Head: Normocephalic and atraumatic. Nose: Nose normal. Eyes: Conjunctivae and EOM are normal. Neck: Carotid bruit is not present. No thyroid mass and no thyromegaly present. No neck masses, no swelling, normal ROM. Cardiovascular: Normal rate, regular rhythm, S1 normal, S2 normal and normal heart sounds. Exam reveals no gallop and no friction rub. No murmur heard. Pulmonary/Chest: Effort normal and breath sounds normal. No respiratory distress. She has no wheezes. She has no rales. Unable to reproduce pain with palpation over the sternum, chest wall. Abdominal: Soft. Normal appearance and bowel sounds are normal. There is no hepatosplenomegaly. There is tenderness in the epigastric area. There is no rigidity, no rebound, no guarding, no tenderness at McBurney's point and negative Harman's sign. Mild epigastric pain with palpation. Neurological: She is alert and oriented to person, place, and time. Skin: Skin is warm and dry. No rash noted. No results found for any visits on 06/11/18 (from the past 24 hour(s)). ASSESSMENT and PLAN: Rhonda was seen today for follow up. Diagnoses and all orders for this visit: Chest discomfort - EKG 12-LEAD - XR CHEST PA AND LATERAL 2 VW; Future Epigastric abdominal pain - CBC WITH DIFFERENTIAL; Future - COMPREHENSIVE METABOLIC PANEL; Future - AMB REFERRAL TO GASTROENTEROLOGY - AMYLASE; Future - LIPASE; Future EKG NSR rate 70, no ST or T wave changes. Normal axis. Due to renal hx of recurrent nephrotic syndrome-hold on PPI or Zantac/Pepcid. TUMS, Mylanta, Tylenol prn. Cannot take NSAIDS. Considered and diiscussed CT chest but cannot give dye to hx of nephrotic syndrome. Will get CXR first. Referred to GI for further eval, concern for esophageal spasms. Labs today. Go to ER if symptoms worsen. ATIONS PLANNER documented in this encounter Procedure Notes * Pam Graves NP - 06/11/2018 11:46 AM CSTAssociated Order(s): EKG 12-LEAD Procedure(s): LA ECG ROUTINE ECG W/LEAST 12 LDS W/I&R Pre-Procedure Diagnose(s): Chest discomfort NSR rate 70, no ST or T wave changes. Normal axis. ATIONS PLANNER documented in this encounter Plan of Treatment Scheduled Referrals Name Type Priority Associated Diagnoses Order Schedule AMB REFERRAL TO GASTROENTEROLOGY Outpatient Referral Routine Epigastric abdominal pain Ordered: 06/11/2018 documented as of this encounter Procedures Procedure Name Priority Date/Time Associated Diagnosis Comments LA ECG ROUTINE ECG W/LEAST 12 LDS W/I&R Routine 06/11/2018 11:46 AM OPERATIONS PLANNER Chest discomfort CBC WITH DIFFERENTIAL Routine 06/11/2018 11:46 AM OPERATIONS PLANNER Epigastric abdominal pain LIPASE Routine 06/11/2018 11:46 AM OPERATIONS PLANNER Epigastric abdominal pain AMYLASE Routine 06/11/2018 11:46 AM OPERATIONS PLANNER Epigastric abdominal pain COMPREHENSIVE METABOLIC PANEL Routine 06/11/2018 11:46 AM OPERATIONS PLANNER Epigastric abdominal pain documented in this encounter Results * LA ECG ROUTINE ECG W/LEAST 12 LDS W/I&R (06/11/2018 11:46 AM OPERATIONS PLANNER) Narrative [facility] - 06/11/2018 11:46 AM OPERATIONS PLANNER Pam Graves NP ? 06/11/2018 12:01 PM NSR rate 70, no ST or T wave changes. Normal axis. Procedure Note Pam Graves NP - 06/11/2018 11:46 AM CST NSR rate 70, no ST or T wave changes. Normal axis. Pam Graves NP ECG ORDERABLES Performing Organization Address City/[facility]/ZIP Co de Phone Number [facility] CLIA# [id number] [address] [place] [address] [place] [address] * LIPASE (06/11/2018 11:46 AM OPERATIONS PLANNER) LIPASE 27 14 - 72 U/L [facility] Blood 06/11/2018 11:4 6 AM OPERATIONS PLANNER 06/11/2018 Narrative [facility] - 06/12/2018 8:48 AM OPERATIONS PLANNER Performed at: ??01 - [facility] [address] ??[id number] Key Holder: John Ac PhD, Phone: ??[phone] Pam Graves NP CHEMISTRY ORDER LUIGI [facility] * AMYLASE (06/11/2018 11:46 AM OPERATIONS PLANNER) AMYLASE 74 31 - 124 U/L [facility] Blood 06/11/2018 11:4 6 AM OPERATIONS PLANNER 06/11/2018 Narrative [facility] - 06/12/2018 8:48 AM OPERATIONS PLANNER Performed at: ??01 - [facility] [address] ??[id number] Key Holder: John Ac PhD, Phone: ??[phone] Pam Graves ELECTRIC CONTAINER TESTER CHEMISTRY ORDER LUIGI [facility] * COMPREHENSIVE METABOLIC PANEL (06/11/2018 11:46 AM OPERATIONS PLANNER) GLUCOSE 71 65 - 99 mg/dL [facility] BUN 18 6 - 20 mg/dL [facility] CREATININE 0.81 0.57 - 1.00 mg/dL [facility] GFR 92 >59 mL/min/1.7 3 [facility] GFR, 106 >59 mL/min/1.7 3 [facility] BUN/CREAT RATIO 22 9 - 23 [facility] SODIUM 142 134 - 144 mmol/L [facility] POTASSIUM 4.5 3.5 - 5.2 mmol/L [facility] CHLORIDE 103 96 - 106 mmol/L [facility] CO2 23 20 - 29 mmol/L [facility] CALCIUM 9.2 8.7 - 10.2 mg/dL [facility] TOTAL PROTEIN 7.2 6.0 - 8.5 g/dL [facility] ALBUMIN 4.7 3.5 - 5.5 g/dL [facility] GLOBULIN 2.5 1.5 - 4.5 g/dL [facility] ALBUMIN/GLOBULIN RATIO 1.9 1.2 - 2.2 [facility] BILIRUBIN TOTAL 0.5 0.0 - 1.2 mg/dL [facility] ALKALINE PHOSPHATASE 88 39 - 117 IU/L [facility] AST 19 0 - 40 IU/L [facility] ALT 14 0 - 32 IU/L [facility] Blood 06/11/2018 11:4 6 AM OPERATIONS PLANNER 06/11/2018 Narrative [facility] - 06/12/2018 6:38 AM OPERATIONS PLANNER Performed at: ??01 - [facility] [address], [place], [place] ??[id number] Key Holder: John Ac PhD, Phone: ??[phone] Pam Graves ELECTRIC CONTAINER TESTER CHEMISTRY ORDER LUIGI [facility] * (ABNORMAL) CBC WITH DIFFERENTIAL (06/11/2018 11:46 AM OPERATIONS PLANNER) WBC 9.7 3.4 - 10.8 x10E3/uL [facility] RBC 4.68 3.77 - 5.28 x10E6/uL [facility] HEMOGLOBIN 14.5 11.1 - 15.9 g/dL [facility] HEMATOCRIT 42.0 34.0 - 46.6 % [facility] MCV 90 79 - 97 fL [facility] MCH 31.0 26.6 - 33.0 pg [facility] MCHC 34.5 31.5 - 35.7 g/dL [facility] RDW 12.4 12.3 - 15.4 % [facility] PLATELETS 332 150 - 379 x10E3/uL [facility] NEUTROPHIL 63 Not Estab. % [facility] LYMPHOCYTES 24 Not Estab. % [facility] MONOCYTE 4 Not Estab. % [facility] EOSINOPHILS 8 Not Estab. % [facility] BASOPHILS 1 Not Estab. % [facility] NEUTROPHIL ABSOLUTE 6.1 1.4 - 7.0 x10E3/uL [facility] LYMPHOCYTE ABSOLUTE 2.3 0.7 - 3.1 x10E3/uL [facility] MONOCYTE ABSOLUTE 0.4 0.1 - 0.9 x10E3/uL [facility] EOSINOPHIL ABSOLUTE 0.7(H) 0.0 - 0.4 x10E3/uL [facility] BASOPHILS ABSOLUTE 0.1 0.0 - 0.2 x10E3/uL [facility] IMMATURE GRANULOCYTES 0 Not Estab. % [facility] IMMATURE GRANULOCYTES ABSOLUTE 0.0 0.0 - 0.1 x10E3/uL [facility] Blood 06/11/2018 11:4 6 AM OPERATIONS PLANNER 06/11/2018 Narrative [facility] - 06/12/2018 5:36 AM OPERATIONS PLANNER Performed at: ??01 - [facility] [address] ??[id number] Key Holder: John Ac PhD, Phone: ??[phone] Pam Graves ELECTRIC CONTAINER TESTER HEMATOLOGY CHICA GIBSON Performing Organization Address City/State/[facility] Co de Phone Number [facility] documented in this encounter Visit Diagnoses Diagnosis Chest discomfort- Primary Other chest pain Epigastric abdominal pain Abdominal pain, epigastric documented in this encounter Care Teams Mobile Application Development Lead Relationship Specialty Start Date End Date Adalberto Morgan MD PCP - General Internal Medicine 12/19/15 05/01/22 documented as of this encounter
--- OUTSIDE RECORDS SUMMARY | 2024-06-16 22:53 | XMS_ITS | Encounter Summary ---
Author Organization [facility] Address [address] [place] [address] Care Team Providers Care Director Of Accounts Payable Name Role Phone Adalberto Morgan MD Primary Care Provider [phone] Reason for Visit * Reason Comments Labs Only Encounter Details Date Type Department Care Team (Latest Contact Info) Description 09/08/2021 9:00 AM CDT Clinical Support [facility] [place] [address] [place] [address] Encounter for screening, unspecified (Primary [...] Sign Reading Time Taken Comments Blood Pressure 106/78 09/08/2021 8:53 AM CDT Pulse - - Temperature - - Respiratory Rate - - Oxygen Saturation - - Inhaled Oxygen Concentration - - Weight 74.4 kg (164 lb) 09/08/2021 8:53 AM CDT Height 151.1 cm (4' 11.5 ) 09/08/2021 8:53 AM CD T Body Mass Index 32.57 09/08/2021 8:53 AM CDT documented in this encounter Progress Notes * Janet Russ - 09/08/2021 8:57 AM CDT Pt came in for annual wellness screening finger stick, right hand 2nd digit, pt tolerate well. ONDINA Raza documented in this encounter Plan of Treatment Not on file documented as of this encounter Procedures Procedure Name Priority Date/Time Associated Diagnosis Comments POC LIPID PANEL AND GLUCOSE Routine 09/08/2021 8:57 AM CDT documented in this encounter Results * POC LIPID PANEL AND GLUCOSE (09/08/2021 8:57 AM CDT) CHOLESTEROL POC 157 200 mg/dL [facility] [place] HDL POC 40 40 - 59 mg/dL [facility] [place] LDL CALCULATED POC 90 100 mg/dL [facility] TRIGLYCERIDES POC 135 150 mg/dL [facility] NON-HDL CHOLESTEROL POC 0 130 mg/dL [facility] CHOL/HDL RATIO POC 3.9 [facility] GLUCOSE POC 95 65 - 99 mg/dL [facility] Blood 09/08/2021 8:57 AM CDT Abstract Provider POINT OF CARE TESTIN G COM [facility] CLIA# [id number] [address] [place] [address] documented in this encounter Visit Diagnoses Diagnosis Encounter for screening, unspecified- Primary documented in this encounter Care Teams Director Of Accounts Payable Relationship Specialty Start Date End Date Adalberto Morgan MD PCP - General Internal Medicine 12/19/15 05/01/22 documented as of this encounter
--- OUTSIDE RECORDS SUMMARY | 2024-06-16 22:53 | XMS_ITS | Encounter Summary ---
Author Organization [facility] Address [address] [place] [address] Care Team Providers Care Chief Science Officer Name Role Phone Adalberto Morgan MD Primary Care Provider [phone] Reason for Visit * Reason Comments Medication Refill Encounter Details Date Type Department Care Team (Late st Contact Info) Description 07/13/2017 Refill [facility] Internal Medicine [address] [address] Adalberto Morgan MD [address] [place] [address] Social History Tobacco Use Types Packs/Day [...] encounter Miscellaneous Notes * Telephone Encounter - Olya Shankar RN - 07/15/2017 8:43 AM CST Patient needs appt [employer] SPECIALIST documented in this encounter Plan of Treatment Not on file documented as of this encounter Visit Diagnoses Not on filedocumented in this encounter Care Teams Chief Science Officer Relationship Specialty Start Date End Date Adalberto Morgan MD PCP - General Internal Medicine 12/19/15 05/01/22 documented as of this encounter
--- OUTSIDE RECORDS SUMMARY | 2024-06-16 22:53 | XMS_ITS | Encounter Summary ---
Author Organization [facility] Address [address] [place] [address] Care Team Providers Care Jack Spooler Tender Name Role Phone Soheila Romero MD Primary Care Provider [phone] Reason for Visit * Reason Onset Date Comments CoCM Initial Contact 09/06/2023 Scheduled i nitial assessment for 09/23/23 @ 2 PM in office. Encounter Details Date Type Department Care Team (Late st Contact Info) Description 09/06/2023 Telephone [facility] [place] [address] [place] [id number] Leandro Paul [address] [place] [address] CoCM Initial Contact (Scheduled initial assessment for 09/23/23 @ 2 PM in office.) Social History Tobacco Use Types Packs/Day Years [...] encounter Miscellaneous Notes * Telephone Encounter - Leandro Paul - 09/06/2023 3:34 PM CDT Collaborative Care - Initial Contact [facility]al [facility] Digital Watch Assembler (BHCM) spoke with Rhonda to introduce the Collaborative Care program in greater detail, answer any questions and schedule an appointment for their initial assessment.Rhonda verbalized an accurate understanding that should he/she experience a psychiatric emergency, they are to contact 911 or the National Suicide Prevention Lifeline at 988 (call or text) or . Scheduled an appointment for the initial assessment on 09/23/23 @ 2 PM in office. documented in this encounter Plan of Treatment Not on file documented as of this encounter Visit Diagnoses Not on filedocumented in this encounter Care Teams Jack Spooler Tender Relationship Specialty Start Date End Date Soheila Romero MD [address] [place] [address] PCP - General Family Practice 05/02/22 12/12/23 documented as of this encounter
--- OUTSIDE RECORDS SUMMARY | 2024-06-16 22:53 | XMS_ITS | Encounter Summary ---
Author Organization [facility] Address [address] [place] [address] Care Team Providers Care Customer Advocate Name Role Phone Soheila Romero MD Primary Care Provider [phone] Reason for Visit * Reason Onset Date Comments CoCM Initial Contact 08/30/2023 1st contact to schedule initial assessment. Left message. Encounter Details Date Type Department Care Team (Late st Contact Info) Description 08/30/2023 Telephone [facility] [employer] [place] [address] [place] [place] [address] Leandro Paul [address] [place] [address] CoCM Initial Contact (1st contact to schedule initial assessment. Left message.) [...] on filedocumented in this encounter Care Teams Customer Advocate Relationship Specialty Start Date End Date Soheila Romero MD [address] [place] [address] PCP - General Family Practice 05/02/22 12/12/23 documented as of this encounter
--- OUTSIDE RECORDS SUMMARY | 2024-06-16 22:53 | XMS_ITS | Encounter Summary ---
Author Organization [facility] Address [address] [place] [address] Care Team Providers Care Data Capture Clerk Name Role Phone Soheila Romero MD Primary Care Provider [phone] Encounter Details Date Type Department Care Team (Late st Contact Info) Description 07/24/2023 External Device Data [facility] ABSTRACTION Provider, Abstract [...] on filedocumented in this encounter Care Teams Data Capture Clerk Relationship Specialty Start Date End Date Soheila Romero MD [address] [place] [id number] PCP - General Family Practice 05/02/22 12/12/23 documented as of this encounter
--- OUTSIDE RECORDS SUMMARY | 2024-06-16 22:53 | XMS_ITS | Encounter Summary ---
Author Organization [facility] Address [address] [place] [address] Care Team Providers Care School Manager Name Role Phone Soheila Romero MD Primary Care Provider [phone] Reason for Visit * Reason Comments Labs Only Encounter Details Date Type Department Care Team ([facility] st Contact Info) Description 09/07/2022 10:40 AM CDT Office Visit [facility] at Work [employer] [place] [address] [place] [address] Screening for condition (Primary Dx) [...] Sign Reading Time Taken Comments Blood Pressure 124/86 09/07/2022 10:28 AM CDT Pulse - - Temperature - - Respiratory Rate - - Oxygen Saturation - - Inhaled Oxygen Concentration - - Weight 78.5 kg (173 lb) 09/07/2022 10:28 AM CDT Height 149.9 cm (4' 11 ) 09/07/2022 10:28 AM CDT Body Mass Index 34.94 09/07/2022 10:28 AM CDT documented in this encounter Progress Notes * Janet Russ - 09/07/2022 10:36 AM CDT Pt came in for blood draw, left AC successful, 1 stick pt tolerated well. Drawn by Cirilo HUERTAS. documented in this encounter Plan of Treatment Not on file documented as of this encounter Procedures Procedure Name Priority Date/Time Associated Diagnosis Comments CBC WITH DIFFERENTIAL Routine 09/07/2022 10:28 AM CDT Screening for condition TSH Routine 09/07/2022 10:28 AM CDT Screening for condition LIPID PANEL Routine 09/07/2022 10:28 AM CDT Screening for condition COMPREHENSIVE METABOLIC PANEL Routine 09/07/2022 10:28 AM CDT Screening for condition documented in this encounter Results * TSH (09/07/2022 10:28 AM CDT) TSH 2.20 mIU/L [facility] Comment: ?Reference Range ?> or = 20 Years ??0.40-4.50 ? Ranges ?First trimester ?0.26-2.66 ?Second trimester ?? 0.55-2.73 ?Third trimester ?0.43-2.91 Test Performed at: [facility] [address] [place], [place] ??[address] Kenny Arana MD Blood 09/07/2022 10:2 8 AM CDT 09/08/2022 5:26 AM CDT Rossana BURTONP CHEMISTRY ORDERABLES [facility] [phone] [facility] [address] [place] [address] * (ABNORMAL) LIPID PANEL (09/07/2022 10:28 AM CDT) CHOLESTEROL 192 <200 mg/dL [facility] HDL 38(L) > OR = 50 mg/dL [facility] TRIGLYCERIDE 126 <150 mg/dL [facility] LDL CALCULATED 130(H) mg/dL (calc) [facility] Comment: Reference [...] LDL-C. Daniel SS et al. HENNY. 2013;310(19): 8255-4863 (http://education.iPositioning/faq/OIY100) CHOL/HDL RATIO 5.1(H) <5.0 (calc) [facility] TOTAL NON-HDL CHOL(LDL+VLDL) 154(H) <130 mg/dL (calc) [facility] Comment: For patients with diabetes plus 1 major ASCVD risk factor, treating to a non-HDL-C goal of <100 mg/dL (LDL-C of <70 mg/dL) is considered a therapeutic option. Test Performed at: [email or web address] [address] [place] ??[phone] Kenny Arana MD Blood 09/07/2022 10:2 8 AM CDT 09/08/2022 5:26 AM CDT Rossana Pan [facility] CHEMISTRY ORDERABLES [facility] [phone] [facility] [id number] [place] [address] * COMPREHENSIVE METABOLIC PANEL (09/07/2022 10:28 AM CDT) GLUCOSE 84 65 - 99 mg/dL [facility] Comment: ? Fasting reference interval BUN 13 7 - 25 mg/dL [facility] CREATININE 0.86 0.50 - 0.99 mg/dL [facility] GFR 86 > OR = 60 mL/min/1. 73m2 [facility] Comment: The eGFR is based on the CKD-EPI 2020 equation. To calculate the new eGFR from a previous Creatinine or Cystatin C result, go to https://www.kidney.org/professionals/ kdoqi/gfr%5Fcalculator BUN/CREAT RATIO NOT APPLICABLE 6 - 22 (calc) [facility] SODIUM 137 135 - 146 mmol/L [facility] POTASSIUM 4.5 3.5 - 5.3 mmol/L [facility] CHLORIDE 105 98 - 110 mmol/L [facility] CO2 20 20 - 32 mmol/L [facility] CALCIUM 9.4 8.6 - 10.2 mg/dL [facility] TOTAL PROTEIN 7.4 6.1 - 8.1 g/dL [facility] ALBUMIN 4.6 3.6 - 5.1 g/dL [facility] GLOBULIN 2.8 1.9 - 3.7 g/dL (calc) [facility] ALBUMIN/GLOBULI N RATIO 1.6 1.0 - 2.5 (calc) [facility] BILIRUBIN TOTAL 1.2 0.2 - 1.2 mg/dL [facility] ALKALINE PHOSPHATASE 93 31 - 125 U/L [facility] AST 17 10 - 30 U/L [facility] ALT 12 6 - 29 U/L [facility] Comment: Test Performed at: [email or web address] [address] [place], [place] ??[phone] Kenny Arana MD Blood 09/07/2022 10:2 8 AM CDT 09/08/2022 5:26 AM CDT Rossana Maxim [facility] CHEMISTRY ORDERABLES [facility] [phone] [facility] [address] [place] [address] * (ABNORMAL) CBC WITH DIFFERENTIAL (09/07/2022 10:28 AM CDT) WBC 7.0 3.8 - 10.8 Thousand/u L [facility] RBC 4.98 3.80 - 5.10 Million/uL [facility] HEMOGLOBIN 15.3 11.7 - 15.5 g/dL [facility] HEMATOCRIT 45.4(H) 35.0 - 45.0 % [facility] MCV 91.2 80.0 - 100.0 fL [facility] MCH 30.7 27.0 - 33.0 pg [facility] MCHC 33.7 32.0 - 36.0 g/dL [facility] RDW 11.7 11.0 - 15.0 % [facility] PLATELETS 318 140 - 400 Thousand/u L [facility] MPV 10.0 7.5 - 12.5 fL [facility] NEUTROPHIL ABSOLUTE 4,704 1,500 - 7,800 cells/uL [facility] LYMPHOCYTE ABSOLUTE 1,701 850 - 3,900 cells/uL [facility] MONOCYTE ABSOLUTE 273 200 - 950 cells/uL [facility] EOSINOPHIL ABSOLUTE 259 15 - 500 cells/uL [facility] BASOPHILS ABSOLUTE 63 0 - 200 cells/uL [facility] NEUTROPHIL 67.2 % [facility] LYMPHOCYTES 24.3 % [facility] MONOCYTE 3.9 % [facility] EOSINOPHILS 3.7 % [facility] BASOPHILS 0.9 % [facility] Comment: Test Performed at: [facility] [address] [facility] [place] ??[phone] Kenny Arana MD Blood 09/07/2022 10:2 8 AM CDT 09/08/2022 5:26 AM CDT Rossana Pan PREDATOR CONTROL TRAPPER HEMATOLOGY ORDERABLE S [facility] [phone] [facility] [address] [address] [place], [place] [address] documented in this encounter Visit Diagnoses Diagnosis Screening for condition- Primary Screening for unspecified condition documented in this encounter Care Teams School Manager Relationship Specialty Start Date End Date Soheila Romero MD [address] [place] [address] PCP - General Family Practice 05/02/22 12/12/23 documented as of this encounter
--- OUTSIDE RECORDS SUMMARY | 2024-06-16 22:53 | XMS_ITS | Encounter Summary ---
Author Organization [employer] [facility] Address [address] [place] [address] Care Team Providers Care Assembled Wood Products Repairer Name Role Phone Soheila Romero MD Primary Care Provider [phone] Reason for Visit * Reason Onset Date Comments Appointment Correction 12/02/2023 Encounter Details Date Type Department Care Team (Late st Contact Info) Description 12/02/2023 Telephone [facility] at Work [employer] [place] [address] [place] [address] Leandro Paul [address] [place] [address] Appointment Correction Social History Tobacco Use Types Packs/Day Years [...] * Telephone Encounter - Shira Anguiano - 12/02/2023 10:48 AM CDT Pt called wanting to let you know that she needs to reschedule her appt today that is scheduled for3:00pm. documented in this encounter Plan of Treatment Not on file documented as of this encounter Visit Diagnoses Not on filedocumented in this encounter Additional Health Concerns Assessment Noted Time PHQ-9 Depression Total Score: 2 11/15/19 24 1:00 PM CDT documented as of this encounter Care Teams Assembled Wood Products Repairer Relationship Specialty Start Date End Date Soheila Romero MD [address] [place] [address] PCP - General Family Practice 05/02/22 12/12/23 documented as of this encounter
--- OUTSIDE RECORDS SUMMARY | 2024-06-16 22:53 | XMS_ITS | Encounter Summary ---
Author Organization [facility] Address [address] [place] [address] Care Team Providers Care Cylinder Inspector And Tester Name Role Phone Soheila Romero MD Primary Care Provider [phone] Encounter Details Date Type Department Care Team (Late st Contact Info) Description 10/08/2023 External Device Data [facility] ABSTRACTION Provider, Abstract [...] documented as of this encounter Care Teams Cylinder Inspector And Tester Relationship Specialty Start Date End Date Soheila Romero MD [address] [place] [phone] PCP - General Family Practice 05/02/22 12/12/23 documented as of this encounter
--- OUTSIDE RECORDS SUMMARY | 2024-06-16 22:53 | XMS_ITS | Encounter Summary ---
Author Organization [facility] Address [address] [place] [address] Care Team Providers Care Respiratory Therapy Aide Name Role Phone Adalberto Morgan MD Primary Care Provider [phone] Reason for Visit * Reason Comments Establish Care Pt states that she i s here to establish with us and transfer meds to be filled here. Will need a refill of Lisinopril Encounter Details Date Type Department Care Team (Late st Contact Info) Description 05/27/2018 3:00 PM SECURITY REPRESENTATIVE Office Visit [facility] at Work [employer] [address] [place] [address] [place], [place] [address] [facility] [address] [place] [address] Gastroesophageal reflux disease without esophagitis (Primary Dx); Screening for breast cancer; History of nephrotic syndrome Social History Tobacco Use Types Packs/Day [...] Sign Reading Time Taken Comments Blood Pressure 116/72 05/27/2018 2:50 PM SECURITY REPRESENTATIVE Pulse 77 05/27/2018 2:50 PM SECURITY REPRESENTATIVE Temperature 36.5 ??C (97.7 ??F) 05/27/2018 2:50 PM CS T Respiratory Rate 16 05/27/2018 2:50 PM SECURITY REPRESENTATIVE Oxygen Saturation 99% 05/27/2018 2:50 PM SECURITY REPRESENTATIVE Inhaled Oxygen Concentration - - Weight 63.5 kg (140 lb) 05/27/2018 2:50 PM SECURITY REPRESENTATIVE Height 151.1 cm (4' 11.5 ) 05/27/2018 2:50 PM CS T Body Mass Index 27.8 05/27/2018 2:50 PM SECURITY REPRESENTATIVE documented in this encounter Progress Notes * Pam Graves, PRIVATE DUTY RN - 05/27/2018 3:04 PM CST HISTORY OF PRESENT ILLNESS Rhonda Devlin is a 37 y.o. female who presents for Chief Complaint Patient presents with ??? Establish Care Pt states that she is here to establish with us and transfer meds to be filled here. Will need a refill of Lisinopril Here for transfer of care from Dr Morgan. hx of childhood onset of intermittent nephrotic syndrome exacerbated by viral illnesses. Sees a scheduling specialist once a year and when she has a flare. Last flare: December-Feb 2016. Has treatment with high dose pred and has remission. Hx of renal calculus-one episode. Last pap smear 1-2 years ago. Has not had a mammogram yet. Does not get a flu vaccine and is not interested although she realizes her risk for viral illness is higher without it and therefore risk for nephrotic flare up. Takes ACEI low dose for renal protection. Does not exercise regularly. Is a non smoker, . Tries to follow a healthy diet. Past Medical History: Diagnosis Date ??? History [...] every 7 days. 12 Capsule 3 ??? [DISCONTINUED] lisinopril (PRINIVIL) 5 mg tablet Take 1 Tablet (5 mg) by mouth daily. 90 Tablet3 No current facility-administered medications for this visit. Allergies Allergen Reactions ??? Ampicillin Rash BP 116/72 (BP Location: Left arm, Patient Position (BP): Sitting, BP Cuff Size: Adult) Pulse 77 Temp 97.7 ??F (36.5 ??C) (Tympanic) Resp 16 Ht 4' 11.5 (1.511 m) Wt 63.5 kg (140 lb) LMP 05/07/2018 (Exact Date) SpO2 99% BMI 27.80 kg/m?? MEDICAL RECORD UPDATE Past Medical History: [...] reviewed and updated in computerized patient record. [place] [id number] [place], [facility] [address] Care Providers: Patient Care Team: Adalberto Morgan MD as PCP - General (Internal Medicine) Prev 09/05/17 DEPRESSION SCREENING (QM) PHQ2: Positive: PHQ-2 score > 2 or PHQ-9 score > 9 PHQ-2 Total: 0 (05/27/18 1400) Her depression screen was normal EXAMINATION BP 116/72 (BP Location: Left arm, Patient Position (BP): Sitting, BP Cuff Size: Adult) Pulse 77 Temp 97.7 ??F (36.5 ??C) (Tympanic) Resp 16 Ht 4' 11.5 (1.511 m) Wt 63.5 kg (140 lb) LMP 05/07/2018 (Exact Date) SpO2 99% BMI 27.80 kg/m?? Blood Pressure BP Readings from Last 3 Encounters: 05/27/18 116/72 02/20/18 106/64 09/05/17 120/78 BMI POC (QM) Body mass index is 27.8 kg/m??. Normal BMI range: 18 & older: > or = 18.5 and < 25 The 10-year CVD risk score (Christal'Agostino, et al., 2008) is: 1.8% Values used to calculate the score: Age: 37 years Sex: Female Diabetic: No Tobacco smoker: No Systolic Blood Pressure: 116 mmHg Is BP treated: No HDL Cholesterol: 52 mg/dL Total Cholesterol: 179 mg/dL Consider Statins if 10 year risk >7.5-10% REVIEW OF SYSTEMS Review of Systems Constitutional: Negative. HENT: Negative. Respiratory: Negative. Cardiovascular: Negative. Gastrointestinal: Positive for heartburn. Recent acid reflux after each meal for the past several weeks. Genitourinary: Negative. Musculoskeletal: Negative. Skin: Negative. Neurological: Negative. Psychiatric/Behavioral: The patient is nervous/anxious. Recently increased stress Objective PHYSICAL EXAM Physical Exam Constitutional: She is oriented to person, place, and time. She appears well- developed and well-nourished. HENT: Head: Normocephalic and atraumatic. Right Ear: Tympanic membrane and ear canal normal. Left Ear: Tympanic membrane and ear canal normal. Nose: Nose normal. Right sinus exhibits no maxillary sinus tenderness and no frontal sinus tenderness. Left sinus exhibits no maxillary sinus tenderness and no frontal sinus tenderness. Mouth/Throat: Uvula is midline and oropharynx is clear and moist. Eyes: Conjunctivae and EOM are normal. Neck: [...] normal. There is no hepatosplenomegaly. There is no tenderness. Lymphadenopathy: She has no cervical adenopathy. Neurological: She is alert and oriented to person, place, and time. Skin: Skin is warm and dry. No rash noted. No results found for any visits on 05/27/18 (from the past 24 hour(s)). ASSESSMENT and PLAN: Rhonda was seen today for establish care. Diagnoses and all orders for this visit: Gastroesophageal reflux disease without esophagitis Screening for breast cancer - MAMMO SCREEN BILAT W OR WO CAD; Future History of nephrotic syndrome - lisinopril (PRINIVIL) 5 mg tablet; 1/2 tab daily. Get labs as planned in August. Dr Morgan did monitor her Vit D and B12 levels. Takes OTC supplements. Due for annual labs in January-reviewed last labs. Mammogram ordered-get when you turn 38 years old in September. GERD-given info in this, declined PPI. Has been on Nexium in the past when she was on Pred for several months. Discussed diet changes to reduce occurrence. Denies black or bloody stools. Denies dizziness. No epigastric pain. RITY REPRESENTATIVE documented in this encounter Plan of Treatment Not on file documented as of this encounter Visit Diagnoses Diagnosis Gastroesophageal reflux disease without esophagitis- Primary Esophageal reflux Screening for breast cancer Breast screening, unspecified History of nephrotic syndrome Personal history of nephrotic syndrome documented in this encounter Care Teams Respiratory Therapy Aide Relationship Specialty Start Date End Date Adalberto Morgan MD PCP - General Internal Medicine 12/19/15 05/01/22 documented as of this encounter
--- OUTSIDE RECORDS SUMMARY | 2024-06-16 22:53 | XMS_ITS | Encounter Summary ---
Author Organization [facility] Address [address] [place] [address] Care Team Providers Care Administrative Assistant Receptionist Name Role Phone Adalberto Morgan MD Primary Care Provider [phone] Reason for Referral * Outpatient Services (Routine) - Closed Specialty Diagnoses / Procedures Referred By Catracho aguilar Referred To Contact Neurology Diagnoses Idiopathic peripheral neuropathy Procedures EMG WITH NERVE CONDUCTION Adalberto Morgan MD [address] [place] [phone] Rhoda Mckeon MD [address] [place] [address] Referral ID Status Reason Start Date Expiration Date V isits Requested Visits Authorized [id number] Closed [facility] CTS 09/05/2017 10/06/2018 1 1 Reason for Visit * Reason Comments Depression Peripheral Neuropathy Encounter Details Date Type Department Care Team (Late st Contact Info) Description 09/05/2017 3:30 PM CDT Office Visit [facility] Internal Medicine [address] [address] Adalberto Morgan MD [address] [place] [address] Routine general medical examination at health care facility (Primary Dx); Nephrotic syndrome; Generalized edema; Idiopathic peripheral neuropathy Social History Tobacco Use Types Packs/Day Years [...] Sign Reading Time Taken Comments Blood Pressure 120/78 09/05/2017 3:42 PM CDT Pulse - - Temperature - - Respiratory Rate - - Oxygen Saturation - - Inhaled Oxygen Concentration - - Weight 62.6 kg (138 lb) 09/05/2017 3:42 PM CDT Height 152.4 cm (5') 09/05/2017 3:42 PM CDT Body Mass Index 26.95 09/05/2017 3:42 PM CDT documented in this encounter Progress Notes * Adalberto Morgan MD - 09/05/2017 4:18 PM CDT Subjective: Rhonda Devlin is a 36 y.o. female. Mood ok Stress better not working at [employer] Some marital issues Still hand numbness Feet better with b12 Renal no change Edema ok Patient Active Problem List Diagnosis Date Noted ??? Nephrotic syndrome 12/28/2015 Overview Note: F/u with mat cleaning machine operator q 3 months. ??? Edema 12/28/2015 Med [...] of Systems - General ROS: some wt loss Psychological ROS: pt says ok Respiratory ROS: negative for cough, shortness of breath, or wheezing Cardiovascular ROS: negative for chest pain or dyspnea on exertion Musculoskeletal ROS: negative for back pain, neck pain or joint pain or swelling Neurological ROS: negative for TIA or stroke symptoms Exam/Objective: BP 120/78 (BP Location: Right arm, Patient Position (BP): Sitting, BP Cuff Size: Adult) Ht 5' (1.524 m) Wt 62.6 kg (138 lb) LMP 08/28/2017 (Exact Date) BMI 26.95 kg/m?? General appearance: over wt nad Head: Normocephalic, without obvious abnormality, atraumatic Eyes: conjunctivae/corneas clear. PERRLA, EOM's intact. Lids appear normal. Ears: normal TM's (shiny without retraction) and external ear canals AU. No apparent lesions or masses. Hearing grossly normal. Nose: Nares normal. Septum midline. Mucosa normal. No drainage Throat: Lips, mucosa, palate, oropharynx, and tongue normal. Teeth braces Oral mucosa unremarkable with non-inflamed posterior pharynx. [...] or generalized lymphadenopathy. Neck Ext no edema Tinel neg Mood stable Assessment and Plan: ASSESSMENT: ICD-10-CM ICD-9-CM 1. Routine general medical examination at health care facility Z00.00 V70.0 CBC WITH DIFFERENTIAL COMPREHENSIVE METABOLIC PANEL LIPID PANEL TSH VITAMIN B12 LEVEL VITAMIN D 25 HYDROXY 2. Nephrotic syndrome N04.9 581.9 3. Generalized edema R60.1 782.3 4. Idiopathic peripheral neuropathy G60.9 356.9 EMG WITH NERVE CONDUCTION Normal BMI Range: 18 & older: > or = 18.5 and < 25 Body mass index is 26.95 kg/m??. Abnormal high BMI: Patient counseled on lifestyle modifications including weight loss and daily exercise. Check emg Renal check lab b12 check lab Edema stable Cont carri inh Advise yrly flu vac Mood pt does not feel needs med PLAN: Orders Placed This Encounter ??? CBC WITH DIFFERENTIAL (Favorites) ??? COMPREHENSIVE METABOLIC PANEL (Favorites) ??? LIPID PANEL (Favorites) ??? TSH (Favorites) ??? VITAMIN B12 LEVEL ??? VITAMIN D 25 HYDROXY ??? EMG WITH NERVE CONDUCTION ??? lisinopril (PRINIVIL) 5 mg tablet Appropriate medications prescribed Appropriate patient instructions provided [...] (06/12/2018) Anatomical Region Laterality Modality Chest Other Abstract Provider DIAGNOSTIC IMAGING O RDERABLES * EMG WITH NERVE CONDUCTION (09/25/2017 12:54 AM CDT) Narrative Procedure Note Rhoda Mckeon MD - 09/25/2017 12:54 AM CDT [place], [place] [address] EMG/NCS CSN: [id number] DATE OF SERVICE: 09/24/2017 BRIEF HISTORY 36-year-old [...] neuropathies in the bilateral upper limbs. [place]:MEDQ [id number] Dictated by: Rhoda Mckeon M.D. cc: Adalberto Morgan MD Adalberto Morgan MD [facility] documented in this encounter Visit Diagnoses Diagnosis Routine general medical examination at health care facility- Primary Routine general medical examination at a [facility] care facility Nephrotic syndrome Nephrotic syndrome with unspecified pathological lesion in kidney Generalized edema Edema Idiopathic peripheral neuropathy Unspecified hereditary and idiopathic peripheral neuropathy Idiopathic peripheral neuropathy Unspecified hereditary and idiopathic peripheral neuropathy documented in this encounter Care Teams Administrative Assistant Receptionist Relationship Specialty Start Date End Date Adalberto Morgan MD PCP - General Internal Medicine 12/19/15 05/01/22 documented as of this encounter
--- OUTSIDE RECORDS SUMMARY | 2024-06-16 22:53 | XMS_ITS | Encounter Summary ---
Author Organization [facility] Address [address] [place] [address] Care Team Providers Care Plumbing And Heating Mechanic Name Role Phone Adalberto Morgan MD Primary Care Provider [phone] Reason for Visit * Reason Onset Date Comments Immunization/Injection Reaction 11/22/2016 Encounter Details Date Type Department Care Team (Late st Contact Info) Description 11/22/[address] [facility] Internal Medicine [address] [address] Adalberto Morgan MD [address] [place] [address] Immunization/Injection Reaction Social History Tobacco Use Types Packs/Day Years [...] encounter Miscellaneous Notes * Telephone Encounter - Vida Cisneros - 11/22/2016 1:15 PM CDT Lm for pt. * Telephone Encounter - Adalberto Morgan MD - 11/22/2016 12:57 PM CDT It can happen Ok for benadryl and tyl If worsens can come by and will check it * Telephone Encounter - Adalberto Morgan MD - 11/22/2016 12:52 PM CDT Lab reviewed cholesterol much better, no med for now Vit d very low , restart capsule weekly-may help mood b12 on low side, start otc b12 1000 ucg daily otc Renal function stable * Telephone Encounter - Vida Cisneros - 11/22/2016 11:15 AM CDT Pt seen in office yesterday & was administered the Pneumovac 23. Said she is having a reaction to the injection. She spoke to pharmacist & they recommended she call you. The injection site is red, warm & painful. The pharmacist recommended Benadryl. Next step. documented in this encounter Plan of Treatment Not on file documented as of this encounter Visit Diagnoses Not on filedocumented in this encounter Care Teams Plumbing And Heating Mechanic Relationship Specialty Start Date End Date Adalberto Morgan MD PCP - General Internal Medicine 12/19/15 05/01/22 documented as of this encounter
--- OUTSIDE RECORDS SUMMARY | 2024-06-16 22:54 | XMS_ITS | Encounter Summary ---
Author Organization [facility] Address [address] [place] [address] Care Team Providers Care Air Shovel Operator Name Role Phone Adalberto Morgan MD Primary Care Provider [phone] Encounter Details Date Type Department Care Team (Late st Contact Info) Description 11/22/2016 Orders Only [facility] Internal Medicine [address] [address] Adalberto Morgan MD [address] [place] [phone] Vitamin B12 deficiency (non anemic); Other hyperlipidemia; Vitamin D deficiency Social History Tobacco Use [...] Associated Diagnosis Comments CBC WITH DIFFERENTIAL Routine 11/21/2016 11:40 AM CDT Vitamin B12 deficiency (non anemic) VITAMIN D 25 HYDROXY Routine 11/21/2016 11:40 AM CDT Vitamin D deficiency TSH Routine 11/21/2016 11:40 AM CDT Other hyperlipidemia VITAMIN B12 LEVEL Routine 11/21/2016 11: 40 AM CDT Vitamin B12 deficiency (non anemic) LIPID PANEL Routine 11/21/2016 11:40 AM CDT Other hyperlipidemia documented in this encounter Results * VITAMIN B12 LEVEL (11/21/2016 11:40 AM CDT) VITAMIN B12 296 180 - 920 pg/mL EXTERNAL LAB Blood 11/21/2016 11:4 0 AM CDT Adalberto Morgan MD CHEMISTRY ORDERABLES Performing Organization Address City/[facility] Co de Phone Number EXTERNAL LAB * (ABNORMAL) VITAMIN D 25 HYDROXY (11/21/2016 11:40 AM CDT) Pathologist [facility] VITAMIN D, 25 OH, TOTAL 13(A) 30 - 80 EXTERNAL LAB VITAMIN D, 25 OH, D2 EXTERNAL LAB VITAMIN D, 25 OH, D3 EXTERNAL LAB ALWAYS MESSAGE EXTERNAL LAB Blood 11/21/2016 11:4 0 AM CDT Adalberto Morgan MD CHEMISTRY ORDERABLES Performing Organization Address City/[facility] Co de Phone Number EXTERNAL LAB * TSH (11/21/2016 11:40 AM CDT) Pathologist [facility] TSH 1.79 0.30 - 5.00 uIU/mL EXTERNAL LAB Blood 11/21/2016 11:4 0 AM CDT Adalberto Morgan MD CHEMISTRY ORDERABLES Performing Organization Address City/[facility]/ZIP Co de Phone Number EXTERNAL LAB * LIPID PANEL (11/21/2016 11:40 AM CDT) ABSTRACTED CHOLESTEROL EXTERNAL LAB ABSTRACTED TRIGLYCERIDE EXTERNAL LAB ABSTRACTED HDL EXTERNAL LAB ABSTRACTED LDL CALCULATED EXTERNAL LAB CHOLESTEROL 161 40 - 199 mg/dL EXTERNAL LAB CHOLESTEROL EXTERNAL LAB TRIGLYCERIDE 59 mg/dL EXTERNAL LAB TRIGLYCERIDE 150.0 EXTERNAL LAB HDL mg/dL EXTERNAL LAB HDL 53 40 - 60 EXTERNAL LAB LDL CALCULATED 96 mg/dL EXTERNAL LAB LDL CALCULATED EXTERNAL LAB CALCULATED LDL CHOLESTEROL mg/dL EXTERNAL LAB CALCULATED TOTAL CHOLESTEROL TO HDL RATIO EXTERNAL LAB CHOL/HDL RATIO EXTERNAL LAB VLDL-3 (REMNANT LIPO) mg/dL EXTERNAL LAB LIPID PANEL COMMENT EXTERNAL LAB RISK FACTOR EXTERNAL LAB RESULT COMMENT, CHEMISTRY EXTERNAL LAB Blood 11/21/2016 11:4 0 AM CDT Adalberto Morgan MD CHEMISTRY ORDERABLES EXTERNAL LAB * CBC WITH DIFFERENTIAL (11/21/2016 11:40 AM CDT) WBC 6.0 4.0 - 9.8 K/uL EXTERNAL LAB WBC K/uL EXTERNAL LAB WBC EXTERNAL LAB MANUAL WBC K/uL EXTERNAL LAB WBC, CORRECTED K/uL EXTERNAL LAB NRBC /100 WBC EXTERNAL LAB NRBCS % EXTERNAL LAB NRBCS EXTERNAL LAB RBC 4.59 3.90 - 4.90 M/uL EXTERNAL LAB RBC EXTERNAL LAB HEMOGLOBIN 14.2 11.8 - 14.8 g/dL EXTERNAL LAB HEMOGLOBIN EXTERNAL LAB HEMATOCRIT 40.8 35.5 - 44.0 % EXTERNAL LAB HEMATOCRIT EXTERNAL LAB MCV 82.2 - 96.4 fL EXTERNAL LAB MCV EXTERNAL LAB MCH 27.2 - 32.6 pg EXTERNAL LAB MCH EXTERNAL LAB MCHC 31.5 - 35.5 g/dL EXTERNAL LAB MCHC EXTERNAL LAB PLATELETS 252 140 - 350 K/uL EXTERNAL LAB PLATELETS EXTERNAL LAB MPV 9.3 - 12.4 fL EXTERNAL LAB MPV EXTERNAL LAB PLATELET, MANUAL EXTERNAL LAB PLT COMMENT EXTERNAL LAB RDW 12.1 11.5 - 14.5 % EXTERNAL LAB RDW EXTERNAL LAB RDW-STDEV 37.0 - 54.0 fL EXTERNAL LAB RDW-STDEV EXTERNAL LAB RDW CV EXTERNAL LAB RESULT COMMENT HEMATOLOGY EXTERNAL LAB NEUTROPHILS % EXTERNAL LAB NEUTROPHILS EXTERNAL LAB LYMPHOCYTES % EXTERNAL LAB LYMPHOCYTES EXTERNAL LAB MIXED CELLS, COUNT RELATIVE EXTERNAL LAB MONOCYTES % EXTERNAL LAB MONOCYTES EXTERNAL LAB EOSINOPHILS % EXTERNAL LAB EOSINOPHILS EXTERNAL LAB BASOPHILS % EXTERNAL LAB BASOPHILS EXTERNAL LAB MANUAL DIFFERENTIAL EXTERNAL LAB ADJUSTED WBC K/uL EXTERNAL LAB ADJUSTED WBC K/uL EXTERNAL LAB NRBC EXTERNAL LAB NRBC 0 EXTERNAL LAB NEUTROPHIL EXTERNAL LAB NEUTROPHILS, SEG % EXTERNAL LAB SEGMENTED NEUTROPHILS % EXTERNAL LAB BANDS % EXTERNAL LAB BANDS RELATIVE % EXTERNAL LAB IMMATURE GRANULOCYTES % EXTERNAL LAB LYMPHOCYTES EXTERNAL LAB LYMPHOCYTES RELATIVE % EXTERNAL LA B REACTIVE LYMPHOCYTES EXTERNAL LA B ATYPICAL LYMPHOCYTE % EXTERNAL LAB ATYPICAL LYMPHOCYTES RELATIVE 0 % EXTERNAL LAB MONOCYTE EXTERNAL LAB MONOCYTES RELATIVE % EXTERNAL LAB EOSINOPHILS EXTERNAL LAB EOSINOPHILS RELATIVE % EXTERNAL LA B BASOPHILS EXTERNAL LAB BASOPHILS RELATIVE % EXTERNAL LAB METAMYELOCYTE % EXTERNAL LAB METAMYELOCYTES RELATIVE 0 % EXTERNAL LAB MYELOCYTES % EXTERNAL LAB MYELOCYTES EXTERNAL LAB MYELOCYTES - REL (DIFF) 0 % EXTERNAL LAB PROMYELOCYTE % EXTERNAL LAB PROMYELOCYTES RELATIVE 0 % EXTERNAL LAB MYELOBLASTS /100 EXTERNAL LAB BLAST % EXTERNAL LAB BLAST EXTERNAL LAB BLASTS RELATIVE 0 % EXTERNAL LAB PROLYMPHOCYTE EXTERNAL LAB PLASMACYTE EXTERNAL LAB PROMONOCYTE EXTERNAL LAB ERYTHROBLASTS /100 EXTERNAL LAB OTHER CELL EXTERNAL LAB WBC ESTIMATE EXTERNAL LAB PLATELET EST. EXTERNAL LAB PLATELET EST. EXTERNAL LAB INSTRUMENT ABSOLUTE COUNTS EXTERNAL LAB NEUTROPHIL ABSOLUTE K/uL EXTERNAL LAB NEUTROPHIL ABSOLUTE EXTERNAL LAB NEUTROPHILS ABSOLUTE K/uL EXTERNAL LA B BANDS ABSOLUTE /uL EXTERNAL LAB BANDS ABSOLUTE K/??L EXTERNAL LAB LYMPHOCYTE ABSOLUTE K/uL EXTERNAL LAB LYMPHOCYTE ABSOLUTE EXTERNAL LAB LYMPHOCYTES ABSOLUTE K/uL EXTERNAL LA B MIXED CELLS, COUNT ABSOLUTE EXTERNAL LAB MONOCYTE ABSOLUTE K/uL EXTERNAL LAB MONOCYTE ABSOLUTE EXTERNAL LAB MONOCYTES ABSOLUTE K/uL EXTERNAL LAB EOSINOPHIL ABSOLUTE K/uL EXTERNAL LAB EOSINOPHIL ABSOLUTE K/uL EXTERNAL LAB EOSINOPHILS ABSOLUTE K/uL EXTERNAL LA B BASOPHILS ABSOLUTE K/uL EXTERNAL LAB BASOPHILS ABSOLUTE EXTERNAL LAB BASOPHILS ABSOLUTE K/uL EXTERNAL LAB METAMYELOCYTE ABSOLUTE /uL EXTERNAL LAB METAMYELOCYTES ABSOLUTE 0.00 K/uL EXTERNAL LAB MYELOCYTE ABSOLUTE /uL EXTERNAL LAB MYELOCYTES - ABS (DIFF) 0.00 K/uL EXTERNAL LAB PROMYELOCYTE ABSOLUTE /uL EXTERNAL LAB PROMYELOCYTES ABSOLUTE 0.00 K/uL EXTERNAL LAB BLASTS ABSOLUTE /uL EXTERNAL LAB BLASTS ABSOLUTE 0.00 K/uL EXTERNAL LAB ATYPICAL LYMPHOCYTE ABSOLUTE K/uL EXTERNAL LAB ATYPICAL LYMPHS ABSOLUTE 0.00 K/uL EXTERNAL LAB IMMATURE GRANULOCYTES ABSOLUTE K/uL EXTERNAL LAB RBC MORPHOLOGY EXTERNAL LAB RBC MORPHOLOGY EXTERNAL LAB WBC MORPHOLOGY EXTERNAL LAB PLATELET MORPHOLOGY EXTERNAL LAB ANISOCYTOSIS /hpf EXTERNAL LAB ANISOCYTOSIS EXTERNAL LAB POIKILOCYTES /hpf EXTERNAL LAB POIKILOCYTES EXTERNAL LAB MICROCYTES /hpf EXTERNAL LAB MICROCYTES EXTERNAL LAB MACROCYTES /hpf EXTERNAL LAB MACROCYTES EXTERNAL LAB POLYCHROMASIA /hpf EXTERNAL LAB POLYCHROMASIA EXTERNAL LAB BASOPHILIC STIPPLING /hpf EXTERNAL LA B BASOPHILIC STIPPLING EXTERNAL LA B HYPOCHROMIA /hpf EXTERNAL LAB HYPOCHROMIA EXTERNAL LAB TARGET CELLS /hpf EXTERNAL LAB TARGET CELLS EXTERNAL LAB OVALOCYTES /hpf EXTERNAL LAB OVALOCYTES EXTERNAL LAB SCHISTOCYTES /hpf EXTERNAL LAB SCHISTOCYTES EXTERNAL LAB STOMATOCYTES /hpf EXTERNAL LAB SPHEROCYTES /hpf EXTERNAL LAB SPHEROCYTES EXTERNAL LAB SIDEROCYTES /hpf EXTERNAL LAB SICKLE CELLS /hpf EXTERNAL LAB SICKLE CELLS EXTERNAL LAB ACANTHOCYTES /hpf EXTERNAL LAB ACANTHOCYTES EXTERNAL LAB GREGORIA CELLS /hpf EXTERNAL LAB GREGORIA CELLS EXTERNAL LAB TEAR DROP CELLS /hpf EXTERNAL LAB TEAR DROP CELLS EXTERNAL LAB CRENATED RBCS EXTERNAL LAB CRENATED RBCS EXTERNAL LAB ROULEAUX /hpf EXTERNAL LAB ROULEAUX EXTERNAL LAB MICROSPHEROCYTES EXTERNAL LAB DEYVI BODIES EXTERNAL LAB PAPPENHEIMER BODIES EXTERNAL LAB PAPPENHEIMER BODIES EXTERNAL LAB MARTINEZ-JOLLY BODIES /hpf EXTERNAL LAB MARTINEZ-JOLLY BODIES EXTERNAL LAB TOXIC GRANULATION EXTERNAL LAB TOXIC GRANULATION EXTERNAL LAB DOHLE BODIES /hpf EXTERNAL LAB DOHLE BODIES EXTERNAL LAB HYPERSEGMENTED NEUTROPHILS /hpf EXTERNAL LAB HYPERSEGMENTED NEUTROPHILS EXTERNAL LAB VACUOLATED NEUTROPHILS /hpf EXTERNAL LAB VACUOLATED NEUTROPHILS EXTERNAL LAB AGRANULAR NEUTROPHILS EXTERNAL LAB AGRANULAR NEUTROPHILS EXTERNAL LAB SMUDGE CELLS /100 EXTERNAL LAB SMUDGE CELLS EXTERNAL LAB AUDI RODS /hpf EXTERNAL LAB CLUMPED PLATELETS EXTERNAL LAB CLUMPED PLATELETS EXTERNAL LAB GIANT PLATELETS EXTERNAL LAB GIANT PLATELETS EXTERNAL LAB CIRCULATING MEGAKARYOCYTE EXTERNAL LAB OBSERVED 1 DIFF EXTERNAL LAB OBSERVED 1 EXTERNAL LAB OBSERVED 2 DIFF EXTERNAL LAB OBSERVED 2 DIFF EXTERNAL LAB COMMENT, DIFFERENTIAL EXTERNAL LAB COMMENT 2, DIFFERENTIAL EXTERNAL LAB REVIEWED ON SMEAR EXTERNAL LAB TOTAL CELLS COUNTED IN DIFF EXTERNAL LAB TOTAL CELLS COUNTED IN DIFF EXTERNAL LAB IMMATURE GRANULOCYTES % EXTERNAL LAB UNCLASSIFIED CELLS EXTERNAL LAB Blood 11/21/2016 11:4 0 AM CDT Adalberto Morgan MD HEMATOLOGY ORDERABLE S EXTERNAL LAB documented in this encounter Visit Diagnoses Diagnosis Vitamin B12 deficiency (non anemic) Other B-complex deficiencies Other hyperlipidemia Vitamin D deficiency Unspecified vitamin D deficiency documented in this encounter Care Teams Air Shovel Operator Relationship Specialty Start Date End Date Adalberto Morgan MD PCP - General Internal Medicine 12/19/15 05/01/22 documented as of this encounter
--- OUTSIDE RECORDS SUMMARY | 2024-06-16 22:54 | XMS_ITS | Encounter Summary ---
Author Organization [facility] Address [address] [place] [address] Care Team Providers Care Renal Medicine Physician Name Role Phone Adalberto Morgan MD Primary Care Provider [phone] Encounter Details Date Type Department Care Team (Late st Contact Info) Description 12/28/2015 Orders Only [facility] Internal Medicine [address] [address] Adalberto Morgan MD [address] [place] [phone] Edema, unspecified type Social History Tobacco Use Types Packs/Day [...] Procedure Name Priority Date/Time Associated Diagnosis Comments US VENOUS DOPPLER LEG RIGHT Stat 12/28/2015 Edema, unspecified type documented in this encounter Results * US VENOUS DOPPLER LEG RIGHT (12/28/2015) Anatomical Region Laterality Modality Lower Extremity Other Adalberto Morgan MD US ORDERABLES documented in this encounter Visit Diagnoses Diagnosis Edema, unspecified type documented in this encounter Care Teams Renal Medicine Physician Relationship Specialty Start Date End Date Adalberto Morgan MD PCP - General Internal Medicine 12/19/15 05/01/22 documented as of this encounter
--- OUTSIDE RECORDS SUMMARY | 2024-06-16 22:54 | XMS_ITS | Encounter Summary ---
Author Organization [facility] Address [address] [place] [address] Care Team Providers Care Quantitative Analyst Name Role Phone Adalberto Morgan MD Primary Care Provider [phone] Encounter Details Date Type Department Care Team (Late st Contact Info) Description 02/29/2016 Abstract [facility] Internal Medicine [address] [address] Adalberto Morgan MD [address] [place] [phone] Social History Tobacco Use Types Packs/Day [...] on filedocumented in this encounter Care Teams Quantitative Analyst Relationship Specialty Start Date End Date Adalberto Morgan MD PCP - General Internal Medicine 12/19/15 05/01/22 documented as of this encounter
--- OUTSIDE RECORDS SUMMARY | 2024-06-16 22:54 | XMS_ITS | Encounter Summary ---
Author Organization [facility] Address [address] [place] [address] Care Team Providers Care Design Painter Name Role Phone Adalberto Morgan MD Primary Care Provider [phone] Reason for Visit * Reason Comments Physical Depression today Medication Refill Encounter Details Date Type Department Care Team (Late st Contact Info) Description 11/21/2016 10:15 AM CDT Office Visit [facility] Internal Medicine [address] [address] Adalberto Morgan MD [address] [place] [phone] Routine general medical examination at a health care facility (Primary Dx); Nephrotic syndrome; Vitamin D deficiency; Vitamin B12 deficiency (non anemic); Other hyperlipidemia; Need for pneumococcal vaccine Social History Tobacco Use Types Packs/Day [...] Sign Reading Time Taken Comments Blood Pressure 120/80 11/21/2016 9:57 AM CDT Pulse - - Temperature - - Respiratory Rate - - Oxygen Saturation - - Inhaled Oxygen Concentration - - Weight 63.5 kg (140 lb) 11/21/2016 9:57 AM CDT Height 152.4 cm (5') 11/21/2016 9:57 AM CDT Body Mass Index 27.34 11/21/2016 9:57 AM CDT documented in this encounter Progress Notes * Adalberto Morgan MD - 11/21/2016 10:14 AM CDT Subjective: Rhonda Devlin is a 36 y.o. female. Nephrotic sync in remission Off prednisone Lab pend Mood issues depn,k anxiety Marital issues Med reviewed Patient Active Problem List Diagnosis Date Noted ??? Nephrotic syndrome 12/28/2015 Overview Note: F/u with mobile lounge driver or operator q 3 months. ??? Edema 12/28/2015 [...] patient: Review of Systems - General ROS: negative for weight changes, fever Psychological ROS: positive for - anxiety and depn, not suicidal Respiratory ROS: negative for cough, shortness of breath, or wheezing Cardiovascular ROS: negative for chest pain or dyspnea on exertion Musculoskeletal ROS: negative for back pain, neck pain or joint pain or swelling Neurological ROS: negative for TIA or stroke symptoms Exam/Objective: BP 120/80 Ht 5' (1.524 m) Wt 63.5 kg (140 lb) BMI 27.34 kg/m2 General appearance: wt stable, depressed affect Head: Normocephalic, without obvious abnormality, atraumatic Eyes: [...] or generalized lymphadenopathy. Neck Ext no edema Mood as above Assessment and Plan: ASSESSMENT: ICD-10-CM ICD-9-CM 1. Routine general medical examination at a health care facility Z00.00 V70.0 2. Nephrotic syndrome N04.9 581.9 3. Vitamin D deficiency E55.9 268.9 VITAMIN D 25 HYDROXY 4. Vitamin B12 deficiency (non anemic) E53.8 266.2 CBC WITH DIFFERENTIAL VITAMIN B12 LEVEL 5. Other hyperlipidemia E78.4 272.4 COMPREHENSIVE METABOLIC PANEL LIPID PANEL TSH 6. Need for pneumococcal vaccine Z23 V03.82 PNEUMOCOCCAL POLYSACCHARIDE VACC 23 VALENT Normal BMI Range: 18 & older: > or = 18.5 and < 25 Body mass index is 27.34 kg/(m^2). Abnormal high BMI: Patient counseled on lifestyle modifications including weight loss and daily exercise. Add carri inh again--if cough change arb Ok try low dose wellbutrin, consider ssri if not effective discussed Advise considers counseling Check lab pnvx Thinks up date tdap PLAN: Orders Placed This Encounter ??? PNEUMOCOCCAL VACCINE (ADULT) ??? CBC WITH DIFFERENTIAL (Favorites) ??? COMPREHENSIVE METABOLIC PANEL (Favorites) ??? LIPID PANEL (Favorites) ??? TSH (Favorites) ??? VITAMIN D 25 HYDROXY (Chemistry) ??? VITAMIN B12 LEVEL (Chemistry) ??? lisinopril (PRINIVIL) 5 mg tablet ??? buPROPion HCl (WELLBUTRIN SR) 100 mg Sustained Release 12 hour tablet Appropriate medications prescribed Appropriate patient instructions provided Follow-up as I have indicated. Medications and options explained to include common side effects. Understanding of medications, course, diagnosis, and expectations were expressed by patient/guardian. documented in this encounter Plan of Treatment Not on file documented as of this encounter Results * VITAMIN B12 LEVEL (11/21/2016 11:40 AM CDT) VITAMIN B12 296 180 - 920 pg/mL EXTERNAL LAB Blood 11/21/2016 11:4 0 AM CDT Adalberto Morgan MD CHEMISTRY ORDERABLES Performing Organization Address City/[facility] Co de Phone Number EXTERNAL LAB * (ABNORMAL) VITAMIN D 25 HYDROXY (11/21/2016 11:40 AM CDT) VITAMIN D, 25 OH, TOTAL 13(A) 30 - 80 EXTERNAL LAB VITAMIN D, 25 OH, D2 EXTERNAL LAB VITAMIN D, 25 OH, D3 EXTERNAL LAB ALWAYS MESSAGE EXTERNAL LAB Blood 11/21/2016 11:4 0 AM CDT Adalberto Morgan MD CHEMISTRY ORDERABLES Performing Organization Address City/[facility] de Phone Number EXTERNAL LAB * TSH (11/21/2016 11:40 AM CDT) Pathologist [facility] TSH 1.79 0.30 - 5.00 uIU/mL EXTERNAL LAB Blood 11/21/2016 11:4 0 AM CDT Adalberto Morgan MD CHEMISTRY ORDERABLES EXTERNAL LAB * LIPID PANEL (11/21/2016 11:40 [...] Diagnoses Diagnosis Routine general medical examination at a health care facility- Primary Nephrotic syndrome Nephrotic syndrome with unspecified pathological lesion in kidney Vitamin D deficiency Unspecified vitamin D deficiency Vitamin B12 deficiency (non anemic) Other B-complex deficiencies Other hyperlipidemia Need for pneumococcal vaccine Need for prophylactic vaccination against streptococcus pneumoniae (pneumococcus) documented in this encounter Care Teams Design Painter Relationship Specialty Start Date End Date Adalberto Morgan MD PCP - General Internal Medicine 12/19/15 05/01/22 documented as of this encounter
--- OUTSIDE RECORDS SUMMARY | 2024-06-16 22:54 | XMS_ITS | Encounter Summary ---
Author Organization [facility] Address [address] [place] [address] Care Team Providers Care Dry Ice Maker Name Role Phone Adalberto Morgan MD Primary Care Provider [phone] Reason for Visit * Reason Onset Date Comments Results 12/28/2015 Encounter Details Date Type Department Care Team (Late st Contact Info) Description 12/28/2015 Telephone [facility] Internal Medicine [address] [address] Adalberto Morgan MD [address] [place] [phone] Results Social History Tobacco Use Types [...] encounter Miscellaneous Notes * Telephone Encounter - Ana Rivas - 12/28/2015 5:04 PM CDT LM on with results per pt authorization. * Telephone Encounter - Adalberto Morgan MD - 12/28/2015 4:48 PM CDT Notify pt no clot right leg , good news documented in this encounter Plan of Treatment Not on file documented as of this encounter Visit Diagnoses Not on filedocumented in this encounter Care Teams Dry Ice Maker Relationship Specialty Start Date End Date Adalberto Morgan MD PCP - General Internal Medicine 12/19/15 05/01/22 documented as of this encounter
--- OUTSIDE RECORDS SUMMARY | 2024-06-16 22:54 | XMS_ITS | Encounter Summary ---
Author Organization [facility] Address [address] [place] [address] Care Team Providers Care Vacuum Furnace Operator Name Role Phone Adalberto Morgan MD Primary Care Provider [phone] Reason for Visit * Reason Onset Date Comments Provider Call 01/10/2016 Encounter Details Date Type Department Care Team (Late st Contact Info) Description 01/10/[address] [facility] Internal Medicine [address] [address] Adalberto Morgan MD [address] [place] [phone] Provider Call Social History Tobacco Use Types Packs/Day Years [...] Miscellaneous Notes * Telephone Encounter - Adalberto Moragn MD - 01/10/2016 6:45 PM CDT Spoke with pt Start vit d Reassess chol Start otc b12 Has fu with nephrology * Telephone Encounter - Vida Cisneros - 01/10/2016 10:30 AM CDT Pt called & said that you had lm on her vm that you were calling regarding her lab results. Shewas returning your call. documented in this encounter Plan of Treatment Not on file documented as of this encounter Visit Diagnoses Not on filedocumented in this encounter Care Teams Vacuum Furnace Operator Relationship Specialty Start Date End Date Adalberto Morgan MD PCP - General Internal Medicine 12/19/15 05/01/22 documented as of this encounter
--- OUTSIDE RECORDS SUMMARY | 2024-06-16 22:54 | XMS_ITS | Encounter Summary ---
Author Organization [facility] Address [address] [place] [address] Care Team Providers Care Health And Safety Instructor Name Role Phone Adalberto Morgan MD Primary Care Provider Reason for Referral * Outpatient Services (Urgent) - Closed Specialty Diagnoses / Procedures Referred By Contromi t Referred To Contact Diagnoses Edema, unspecified type Procedures US VENOUS DOPPLER LEG RIGHT Adalberto Morgan MD [address] [place] [id number] [place] [address] Referral ID Status Reason Start Date Expiration Date V isits Requested Visits Authorized [id number] Closed [facility] CTS 12/28/2015 01/27/2017 1 1 Reason for Visit * Reason Comments Establish Care new patient Other nephrotic syndrome ER Follow Up [facility] last week 12/19/2015 Weight Gain do to Nephrotic Shortness of Breath do to Nephrotic synd lyudmila Encounter Details Date Type Department Care Team (Late st Contact Info) Description 12/28/2015 11:45 AM CDT Office Visit [facility] Internal Medicine [address] [address] Adalberto Morgan MD [address] [place] [address] [address] [place] [address] Routine general medical examination at a health care facility (Primary Dx); Nephrotic syndrome; Edema, unspecified type Social History Tobacco Use [...] Reading Time Taken Comments Blood Pressure 120/80 12/28/2015 11:56 AM CDT Pulse - - Temperature - - Respiratory Rate - - Oxygen Saturation - - Inhaled Oxygen Concentration - - Weight 63.5 kg (140 lb) 12/28/2015 11:56 AM CDT Height 152.4 cm (5') 12/28/2015 11:56 AM CDT Body Mass Index 27.34 12/28/2015 11:56 AM CDT documented in this encounter Progress Notes * Adalberto Morgan MD - 12/28/2015 12:52 PM CDT Subjective: Rhonda Devlin is a 35 y.o. female. Hx neprhotic syndrome--? Minimal change diseased Recent flare, rx in ER on prednisone Had on and off since childhood Med reviewed Edema noted rle more than left Feeling better on prednisone Patient Active Problem List Diagnosis Date Noted ??? Nephrotic syndrome 12/28/2015 ??? Edema 12/28/2015 Med see list Allergies Allergen Reactions ??? Ampicillin Rash Past Medical History Diagnosis Date ??? Vaginal delivery 11/19/1999 ??? Vaginal delivery 02/09/2002 ??? Nephrotic syndrome 06/24/2005 ??? Nephrotic syndrome 06/24/2012 ??? Nephrotic syndrome 12/12/2015 ??? Kidney stone 06/24/2011 ??? History of blood transfusion 06/24/2005 Past Surgical History Procedure Laterality Date ??? Hx renal biopsy 06/24/2005 No family history on file. History Substance Use Topics ??? Smoking status: Never Smoker ??? Smokeless tobacco: Never Used ??? Alcohol Use: No Review of Systems: During the review of systems, the following significant history is obtained from the patient: See sheet Exam/Objective: Normal Exam for Routine Visits: \Blood pressure 120/80, height 5' (1.524 m), weight 63.504 kg (140 lb). General appearance: healthy appearing, active, alert, cooperative, no distress, social, normally nourished, and in no acute distress Head: Normocephalic, without obvious abnormality, atraumatic Eyes: conjunctivae/corneas clear. PERRLA, EOM's intact.. Lids appear normal. Ears: normal TM's (shiny [...] or abdomen. Lymphatics: No focal or generalized lymphadenopathy.neck Trace edema rle Assessment and Plan: ASSESSMENT: ICD-9-CM ICD-10-CM 1. Routine general medical examination at a health care facility V70.0 Z00.00 2. Nephrotic syndrome 581.9 N04.9 CBC WITHOUT DIFFERENTIAL COMPREHENSIVE METABOLIC PANEL LIPID PANEL TSH T4 FREE VITAMIN D 25 HYDROXY VITAMIN B12 LEVEL US RENAL AND BLADDER 3. 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 US RENAL AND BLADDER ??? US VENOUS DOPPLER LEG RIGHT ??? CBC WITHOUT DIFFERENTIAL (Favorites) ??? COMPREHENSIVE METABOLIC PANEL (Favorites) ??? LIPID PANEL (Favorites) ??? TSH (Favorites) ??? T4 FREE (Chemistry) ??? VITAMIN D 25 HYDROXY ??? VITAMIN B12 LEVEL (Chemistry) ??? lisinopril (PRINIVIL) 5 mg tablet Appropriate medications prescribed Appropriate patient instructions provided Follow-up as I have indicated. Medications and options explained to include common side effects. Understanding of medications, course, diagnosis, and expectations were expressed by patient/guardian. documented in this encounter Plan of Treatment Not on file documented as of this encounter Results * VITAMIN B12 LEVEL (01/06/2016 11:41 AM CDT) VITAMIN B12 289 180 - 920 pg/mL EXTERNAL LAB Blood specimen (specimen) 01/06/2016 11:41 AM CDT Adalberto Morgan MD CHEMISTRY ORDERABLES Performing Organization Address [facility] de Phone Number EXTERNAL LAB * (ABNORMAL) VITAMIN D 25 HYDROXY (01/06/2016 11:41 AM CDT) VITAMIN D, 25 OH, TOTAL 10(A) 30 - 80 EXTERNAL LAB VITAMIN D, 25 OH, D2 EXTERNAL LAB VITAMIN D, 25 OH, D3 EXTERNAL LAB Blood specimen (specimen) 01/06/2016 11:41 AM CDT Adalberto Morgan MD CHEMISTRY ORDERABLES Performing Organization Address [facility] de Phone Number EXTERNAL LAB * T4 FREE (01/06/2016 11:41 AM CDT) T4 FREE 1.40 0.80 - 1.80 ng/dL EXTERNAL LAB Blood specimen (specimen) 01/06/2016 11:41 AM CDT Adalberto Morgan MD CHEMISTRY ORDERABLES Performing Organization Address [facility] Co de Phone Number EXTERNAL LAB * TSH (01/06/2016 11:41 AM CDT) TSH 1.47 0.30 - 5.00 uIU/mL EXTERNAL LAB Blood specimen (specimen) 01/06/2016 11:41 AM CDT Adalberto Morgan MD CHEMISTRY ORDERABLES Performing Organization Address [place]/[facility] Co de Phone Number EXTERNAL LAB * (ABNORMAL) LIPID PANEL (01/06/2016 11:41 AM CDT) ABSTRACTED CHOLESTEROL EXTERNAL LAB ABSTRACTED TRIGLYCERIDE EXTERNAL LAB ABSTRACTED HDL EXTERNAL LAB ABSTRACTED LDL CALCULATED EXTERNAL LAB CHOLESTEROL 263(A) 40 - 200 mg/dL EXTERNAL LAB CHOLESTEROL EXTERNAL LAB TRIGLYCERIDE 120 150 mg/dL EXTERNAL LAB TRIGLYCERIDE EXTERNAL LAB HDL 81(A) 40 - 59 mg/dL EXTERNAL LAB HDL EXTERNAL LAB LDL CALCULATED 158(A) 100 mg/dL EXTERNAL LAB LDL CALCULATED EXTERNAL LAB CALCULATED LDL CHOLESTEROL mg/dL EXTERNAL LAB CALCULATED TOTAL CHOLESTEROL TO HDL RATIO EXTERNAL LAB CHOL/HDL RATIO EXTERNAL LAB VLDL-3 (REMNANT LIPO) mg/dL EXTERNAL LAB LIPID PANEL COMMENT EXTERNAL LAB RISK FACTOR EXTERNAL LAB RESULT COMMENT, CHEMISTRY EXTERNAL LAB Blood specimen (specimen) 01/06/2016 11:41 AM CDT Adalberto Morgan MD CHEMISTRY ORDERABLES Performing Organization Address [facility] Co de Phone Number EXTERNAL LAB * COMPREHENSIVE METABOLIC PANEL (01/06/2016 11:41 AM CDT) SODIUM 136 135 - 145 mmol/L EXTERNAL LAB SODIUM EXTERNAL LAB POTASSIUM 3.9 3.5 - 5.1 mmol/L EXTERNAL LAB POTASSIUM EXTERNAL LAB CHLORIDE 96 - 108 mmol/L EXTERNAL LAB CHLORIDE EXTERNAL LAB CO2 22 - 30 mmol/L EXTERNAL LAB CO2 EXTERNAL LAB CALCIUM 8.9 8.6 - 10.2 mg/dL EXTERNAL LAB CALCIUM EXTERNAL LAB BUN 6 - 20 mg/dL EXTERNAL LAB BUN EXTERNAL LAB CREATININE 0.72 0.60 - 1.10 mg/dL EXTERNAL LAB CREATININE EXTERNAL LAB GLUCOSE 76 70 - 99 mg/dL EXTERNAL LAB GLUCOSE EXTERNAL LAB TOTAL PROTEIN 6.3 - 8.6 g/dL EXTERNAL LAB TOTAL PROTEIN EXTERNAL LAB ALBUMIN 3.4 - 4.8 g/dL EXTERNAL LAB ALBUMIN EXTERNAL LAB BILIRUBIN TOTAL mg/dL EXTERNAL LAB BILIRUBIN TOTAL EXTERNAL LAB ALKALINE PHOSPHATASE 35 - 104 U/L EXTERNAL LAB ALKALINE PHOSPHATASE EXTERNAL LAB AST 14 10 - 40 U/L EXTERNAL LAB AST EXTERNAL LAB ALT 19 5 - 45 U/L EXTERNAL LAB ALT EXTERNAL LAB GFR, 60 mL/min/1.7 3 sq meter EXTERNAL LAB GFR, EXTERNAL LAB GFR 60 60 mL/min/1.7 3 sq meter EXTERNAL LAB GFR EXTERNAL LAB ANION GAP mmol/L EXTERNAL LAB OSMOLALITY, CALCULATED EXTERNAL LAB BUN/CREAT RATIO EXTERNAL LAB ALBUMIN/GLOBULIN RATIO EXTERNAL LAB GLOBULIN (CALC) g/dL EXTERNAL LAB GLOBULIN EXTERNAL LAB RESULT COMMENT, CHEMISTRY EXTERNAL LAB Blood specimen (specimen) 01/06/2016 11:41 AM CDT Adalberto Morgan MD CHEMISTRY ORDERABLES EXTERNAL LAB * (ABNORMAL) CBC WITHOUT DIFFERENTIAL (01/06/2016 11:41 AM CDT) WBC 15.3(A) 3.8 - 9.8 K/uL EXTERNAL LAB WBC EXTERNAL LAB MANUAL WBC K/uL EXTERNAL LAB WBC, CORRECTED K/uL EXTERNAL LAB NRBC /100 WBC EXTERNAL LAB NRBCS % EXTERNAL LAB NRBCS EXTERNAL LAB RBC 5.14(A) 3.90 - 5.00 M/uL EXTERNAL LAB RBC EXTERNAL LAB HEMOGLOBIN 15.8(A) 12.1 - 15.1 g/dL EXTERNAL LAB HEMOGLOBIN EXTERNAL LAB HEMATOCRIT 44.5(A) 36.1 - 44.3 % EXTERNAL LAB HEMATOCRIT EXTERNAL LAB MCV 82.2 - 96.4 fL EXTERNAL LAB MCV EXTERNAL LAB MCH 27.2 - 32.6 pg EXTERNAL LAB MCH EXTERNAL LAB MCHC 31.5 - 35.5 g/dL EXTERNAL LAB MCHC EXTERNAL LAB PLATELETS 269 140 - 440 K/uL EXTERNAL LAB PLATELETS EXTERNAL LAB MPV 9.3 - 12.4 fL EXTERNAL LAB MPV EXTERNAL LAB PLATELET, MANUAL EXTERNAL LAB PLT COMMENT EXTERNAL LAB RDW 11.9 11.5 - 14.6 % EXTERNAL LAB RDW EXTERNAL LAB RDW-STDEV 37.0 - 54.0 fL EXTERNAL LAB RDW-STDEV EXTERNAL LAB RDW CV EXTERNAL LAB RESULT COMMENT HEMATOLOGY EXTERNAL LAB NEUTROPHILS % EXTERNAL LAB NEUTROPHILS EXTERNAL LAB LYMPHOCYTES % EXTERNAL LAB MIXED CELLS, COUNT RELATIVE EXTERNAL LAB MONOCYTES % EXTERNAL LAB EOSINOPHILS % EXTERNAL LAB BASOPHILS % EXTERNAL LAB MANUAL DIFFERENTIAL EXTERNAL LAB NRBC EXTERNAL LAB NEUTROPHIL EXTERNAL LAB NEUTROPHILS, SEG % EXTERNAL LAB BANDS % EXTERNAL LAB IMMATURE GRANULOCYTES % EXTERNAL LAB LYMPHOCYTES EXTERNAL LAB REACTIVE LYMPHOCYTES EXTERNAL LA B ATYPICAL LYMPHOCYTE % EXTERNAL LAB MONOCYTE EXTERNAL LAB EOSINOPHILS EXTERNAL LAB BASOPHILS EXTERNAL LAB METAMYELOCYTE % EXTERNAL LAB MYELOCYTES % EXTERNAL LAB MYELOCYTES EXTERNAL LAB PROMYELOCYTE % EXTERNAL LAB MYELOBLASTS /100 EXTERNAL LAB BLAST % EXTERNAL LAB BLAST EXTERNAL LAB PROLYMPHOCYTE EXTERNAL LAB PLASMACYTE EXTERNAL LAB PROMONOCYTE EXTERNAL LAB ERYTHROBLASTS /100 EXTERNAL LAB OTHER CELL EXTERNAL LAB WBC ESTIMATE EXTERNAL LAB PLATELET EST. EXTERNAL LAB PLATELET EST. EXTERNAL LAB INSTRUMENT ABSOLUTE COUNTS EXTERNAL LAB NEUTROPHIL ABSOLUTE K/uL EXTERNAL LAB NEUTROPHIL ABSOLUTE EXTERNAL LAB BANDS ABSOLUTE /uL EXTERNAL LAB LYMPHOCYTE ABSOLUTE K/uL EXTERNAL LAB LYMPHOCYTE ABSOLUTE EXTERNAL LAB MIXED CELLS, COUNT ABSOLUTE EXTERNAL LAB MONOCYTE ABSOLUTE K/uL EXTERNAL LAB MONOCYTE ABSOLUTE EXTERNAL LAB EOSINOPHIL ABSOLUTE K/uL EXTERNAL LAB EOSINOPHIL ABSOLUTE K/uL EXTERNAL LAB BASOPHILS ABSOLUTE K/uL EXTERNAL LAB BASOPHILS ABSOLUTE EXTERNAL LAB METAMYELOCYTE ABSOLUTE /uL EXTERNAL LAB MYELOCYTE ABSOLUTE /uL EXTERNAL LAB PROMYELOCYTE ABSOLUTE /uL EXTERNAL LAB BLASTS ABSOLUTE /uL EXTERNAL LAB ATYPICAL LYMPHOCYTE ABSOLUTE K/uL EXTERNAL LAB IMMATURE GRANULOCYTES ABSOLUTE K/uL EXTERNAL LAB RBC MORPHOLOGY EXTERNAL LAB RBC MORPHOLOGY EXTERNAL LAB ANISOCYTOSIS /hpf EXTERNAL LAB [...] LAB OBSERVED 1 DIFF EXTERNAL LAB OBSERVED 2 DIFF EXTERNAL LAB OBSERVED 2 DIFF EXTERNAL LAB COMMENT, DIFFERENTIAL EXTERNAL LAB COMMENT 2, DIFFERENTIAL EXTERNAL LAB REVIEWED ON SMEAR EXTERNAL LAB TOTAL CELLS COUNTED IN DIFF EXTERNAL LAB TOTAL CELLS COUNTED IN DIFF EXTERNAL LAB Blood specimen (specimen) 01/06/2016 11:41 AM CDT Adalberto Morgan MD HEMATOLOGY ORDERABLE S EXTERNAL LAB * US VENOUS DOPPLER LEG RIGHT (12/28/2015) Anatomical Region Laterality Modality Lower Extremity Other Adalberto Morgan MD US ORDERABLES documented in this encounter Visit Diagnoses Diagnosis Routine general medical examination at a health care facility- Primary Nephrotic syndrome Nephrotic syndrome with unspecified pathological lesion in kidney Edema, unspecified type documented in this encounter Care Teams Health And Safety Instructor Relationship Specialty Start Date End Date Adalberto Morgan MD PCP - General Internal Medicine 12/19/15 05/01/22 documented as of this encounter
--- OUTSIDE RECORDS SUMMARY | 2024-06-16 22:54 | XMS_ITS | Encounter Summary ---
Author Organization [facility] Address [address] [place] [address] Care Team Providers Care Nuclear Reactor Technician Name Role Phone Adalberto Morgan MD Primary Care Provider [phone] Encounter Details Date Type Department Care Team (Late st Contact Info) Description 01/10/2016 Orders Only [facility] Internal Medicine [address] [address] Adalberto Morgna MD [address] [place] [address] Nephrotic syndrome Social History Tobacco Use Types [...] Diagnosis Comments VITAMIN D 25 HYDROXY Routine 01/06/2016 11:41 AM CDT Nephrotic syndrome CBC WITHOUT DIFFERENTIAL Routine 01/06/2016 11:41 AM CDT Nephrotic syndrome TSH Routine 01/06/2016 11:41 AM CDT Nephrotic syndrome T4 FREE Routine 01/06/2016 11:41 AM CDT Nephrotic syndrome VITAMIN B12 LEVEL Routine 01/06/2016 11: 41 AM CDT Nephrotic syndrome LIPID PANEL Routine 01/06/2016 11:41 AM CDT Nephrotic syndrome COMPREHENSIVE METABOLIC PANEL Routine 01/06/2016 11:41 AM CDT Nephrotic syndrome COMPREHENSIVE METABOLIC PANEL Routine 01/06/2016 documented in this encounter Results * VITAMIN [...] MD HEMATOLOGY ORDERABLE S EXTERNAL LAB * (ABNORMAL) VITAMIN D 25 HYDROXY (01/06/2016 11:41 AM CDT) VITAMIN D, 25 OH, TOTAL 10(A) 30 - 80 EXTERNAL LAB VITAMIN D, 25 OH, D2 EXTERNAL LAB VITAMIN D, 25 OH, D3 EXTERNAL LAB Blood specimen (specimen) 01/06/2016 11:41 AM CDT Adalberto Morgan MD CHEMISTRY ORDERABLES Performing Organization Address City/[facility]/ZIP Co de Phone Number EXTERNAL LAB * T4 FREE (01/06/2016 11:41 AM CDT) T4 FREE 1.40 0.80 - 1.80 ng/dL EXTERNAL LAB Blood specimen (specimen) 01/06/2016 11:41 AM CDT Adalberto Morgan MD CHEMISTRY ORDERABLES EXTERNAL LAB * TSH (01/06/2016 11:41 AM CDT) TSH 1.47 0.30 - 5.00 uIU/mL EXTERNAL LAB Blood specimen (specimen) 01/06/2016 11:41 AM CDT Adalberto Morgan MD CHEMISTRY ORDERABLES EXTERNAL LAB * (ABNORMAL) LIPID PANEL (01/06/2016 [...] Morgan MD CHEMISTRY ORDERABLES Performing Organization Address [facility] Co de Phone Number EXTERNAL LAB [...] Morgan MD CHEMISTRY ORDERABLES EXTERNAL LAB * COMPREHENSIVE METABOLIC PANEL (01/06/2016) Blood specimen (specimen) Abstract Provider CHEMISTRY ORDERABLES Performing Organization Address City/[facility]/ZIP Co de Phone Number [facility]# [id number] [address] [place] [id number] documented in this encounter Visit Diagnoses Diagnosis Nephrotic syndrome Nephrotic syndrome with unspecified pathological lesion in kidney documented in this encounter Care Teams Nuclear Reactor Technician Relationship Specialty Start Date End Date Adalberto Morgan MD PCP - General Internal Medicine 12/19/15 05/01/22 documented as of this encounter
--- OUTSIDE RECORDS SUMMARY | 2024-06-16 22:54 | XMS_ITS | Encounter Summary ---
Author Organization [facility] Address [address] [place] [address] Care Team Providers Care Bacteriologist Industrial Name Role Phone Adalberto Morgan MD Primary Care Provider [phone] Encounter Details Date Type Department Care Team (Late st Contact Info) Description 01/15/2016 Abstract [facility] Internal Medicine [address] [address] Adalberto Morgan MD [address] [place] [id number] Social History Tobacco Use Types Packs/Day [...] on filedocumented in this encounter Care Teams Bacteriologist Industrial Relationship Specialty Start Date End Date Adalberto Morgan MD PCP - General Internal Medicine 12/19/15 05/01/22 documented as of this encounter
[2024-06-17] VITALS (14 sets, daily range): BP systolic 105–119; BP diastolic 62–75; PULSE 95–111; RESP 14–20; TEMP 36.5–36.8; O2SAT 92–99
[2024-06-17] MEDS: CEFEPIME 2 GM/NS 50 ML 2 GM/50 ML BAG IVPB ×2 (00:56→13:51)
[2024-06-17] MEDS: ONDANSETRON INJ 4 MG/2 ML VIAL IV PUSH ×2 (02:44→08:38)
[2024-06-17] MEDS: diphenhydrAMINE HCl INJ 50 MG/ML VIAL 25 MG IV PUSH (05:19)
[2024-06-17] MEDS: VANCOMYCIN 1,250 MG/NS 250 ML 1,250 MG/250 ML BAG 166.67 MG IVPB (05:20)
[2024-06-17 06:08] LABS: Anion Gap 7 mmol/L (4-12); Blood Urea Nitrogen 7 mg/dL (7-17); Calcium 8.1 mg/dL (8.4-10.2); Carbon Dioxide 26 mmol/L (22-30); Chloride 105 mmol/L (98-107); Estimated Glomerular Filt Rate > 60; Glucose 86 mg/dL (65-110); Potassium 2.6 mmol/L (3.4-5.0); Sodium 138 mmol/L (137-145)
[2024-06-17] MEDS: POTASSIUM CHLORIDE INJ 40 MEQ in SODIUM CHLORIDE 0.9% IV 500 ML 130 MEQ IVPB (06:56)
[2024-06-17] MEDS: LEVALBUTEROL NEB 1.25 MG/3 ML INHALATION ×3 (07:22→21:29)
[2024-06-17 07:24] LABS: Eosinophils Percent Auto 0.1 % (0-4.4); Hematocrit 31.1 % (37.0-47.0); Hemoglobin 10.6 g/dL (12.0-15.0); Immature Granulocyte Absolute 0.99 K/mm3 (0.00-0.031); Immature Granulocyte Percent A 3.7 % (0-0.5); Lymphocytes Absolute Auto 0.47 K/mm3 (0.9-3.2); Lymphocytes Percent Auto 1.8 % (18.3-44.2); Mean Corpuscular HGB Conc 34.1 g/dl (32-36); Mean Corpuscular Hemoglobin 30.8 pg (26-34); Mean Corpuscular Volume 90.4 fl (80-100); Mean Platelet Volume 9.5 fl (7.4-10.4); Monocytes Absolute Auto 0.5 K/mm3 (0.1-0.6); Monocytes Percent Auto 1.9 % (2.6-8.5); Neutrophils Absolute Auto 24.8 K/mm3 (1.3-6.7); Neutrophils Percent Auto 92.5 % (45.5-73.1); Platelet Count Result 319 k/mm3 (150-375); Red Blood Count 3.44 M/mm3 (4.2-5.4); Red Cell Distribution Width 13.5 % (11.5-14.5); White Blood Count 26.8 K/mm3 (4.5-10.0)
--- NOTE | 2024-06-17 07:37 | PC.NURSE ---
RN spoke with hospitalist Gi Marte in regards to patient getting a midline or picc line. Patient is on her 5th IV and getting multiple K riders due to potassium being critically low. Hospitalist stated she would look at the chart and let RN know.
[2024-06-17 07:57] LABS: Alanine Aminotransferase 27 U/L (6-35); Albumin Level 2.3 g/dL (3.5-5.1); Alkaline Phosphatase 143 U/L (38-126); Aspartate Amino Transferase 35 U/L (14-36); Bilirubin,Total 1.4 mg/dL (0.2-1.3)
--- NOTE | 2024-06-17 08:01 | P.PNIM_ITS ---
Progress Note: A&P Assessment and Plan (1) Cholelithiasis: Qualifiers: Biliary obstruction: with biliary obstruction Cholecystitis presence: without cholecystitis Cholelithiasis location: gallbladder and bile duct Qualified Code(s): K80.71 - Calculus of gallbladder and bile duct without cholecystitis with obstruction Code(s): K80.20 - Calculus of gallbladder without cholecystitis without obstruction Status: Acute Assessment and Plan: - Elevated LFTs, downtrending - Abdomen/Pelvis CT 1. Cholelithiasis with mild dilation the common bile duct 8 mm in minimal central and hepatic biliary ductal dilation. No distal obstructing stone identified although could consider MRCP for more sensitive evaluation as clinically indicated. 2. 3.7 cm left adnexal cyst. - Abdomen Ultrasound 1. Gallbladder sludge without evident shadowing cholelithiasis over this might be due to the relatively tiny size of the few calcific stone seen on prior CT. 2. Normal proximal common bile duct measurement of 4-5 mm however the more distal duct which was dilated to [address] is obscured. - MRCP 1. Cholelithiasis with 3-4 mm stone in the cystic duct which has a low confluence with the distal common bile duct. No dilation of the gallbladder to suggest a significant obstruction or acute cholecystitis. 2. Mild pulmonary edema, trace bilateral pleural effusions and trace amount of perihepatic and perisplenic ascites. - ERCP with sphincterotomy and stone extraction on 06/10 - IV pain management - Monitor vital signs, I and O's, check stool output, neuro status and patient is a fall risk - Monitor serum electrolytes and CBC - Consult GI for further evaluation, appreciate assistance and recommendation See MRCP result above - Consult surgery for further evaluation, appreciate assistance and recommend ation - laparoscopic cholecystectomy with DR. Paulino-06/09 - continue supportive care (2) Post-ERCP acute pancreatitis: Code(s): K91.89 - Other postprocedural complications and disorders of digestive system; K85.90 - Acute pancreatitis without necrosis or infection, unspecified Status: Acute Assessment and Plan: ERCP with sphincterotomy and stone extraction on 06/10 - Lipase 3852 on 06/11, repeat 396 - CT abd/pelvis 06/10: Acute interstitial pancreatitis - CT abd/pelvis 06/12: Acute pancreatitis, with significant interval worsening of peripancreatic fluid and inflammatory change, with fluid extending into the right paracolic gutter and pelvis. No pancreatic necrosis or pseudocyst. - diet: NPO pending dobhoff placement and PPN recommendations per nutrition - LR 75 ml/hr - pain control - GI following 06/17: Worsening leukocytosis on current antibiotics, repeat CT. - CT abd/pelvis 06/17: Stable findings of acute pancreatitis with peripancreatic necrosis. - Discussed CT findings with GI Dr. Inman, continue current antibiotic regimen and start patient on tube feeds via Dobbhoff. - Consult made to nutrition for tube feeds (3) Transaminitis: Code(s): R74.01 - Elevation of levels of liver transaminase levels Status: Acute Assessment and Plan: LFTs on admission: Tot bili 2.4, AST 1378, ALT 812, Alk phos 161 Likely secondary to common bile duct and hepatic biliary ductal dilation as seen on imaging - LFTs on am labs: Tot bili 1.4, AST 435, ALT 27, Alk phos 143 - See cholelithiasis plan #1 - Monitor (4) Common bile duct dilatation: Code(s): K83.8 - Other specified diseases of biliary tract Status: Acute Assessment and Plan: see choledocholithiasis plan #1 (5) Pleural effusion: Code(s): J90 - Pleural effusion, not elsewhere classified Status: Acute Assessment and Plan: - CT abd/pelvis 06/10: small pleural effusions - CT abd/pelvis 06/12: small to mod right pleural effusion and small left pleural effusion - Chest XR 06/14: Worsened airspace opacities in left lower lung zone, consistent with atelectasis versus pneumonia. Small left pleural effusion. - Chest CTA 06/15: No PE, small pleural effusions - Antibiotics: Levaquin started 06/14, vanc started 06/16 discontinued 06/17 as MRSA negative - Unable to give lasix at this time as patient has been borderline hypotensive - Viral PCR: negative for Flu/COVID/RSV - Back on baseline room air, was originally requiring 4L NC - Monitor vital signs, I&Os, neuro status and patient is a fall risk - Follow WBC, serum electrolytes, temperature curves and cultures - Pulmonology consulted (6) Hypokalemia: Code(s): E87.6 - Hypokalemia Status: Acute Assessment and Plan: intake related will replace IV repeat later today- ordered 06/17 mag replaced (7) Hyponatremia: Code(s): E87.1 - Hypo-osmolality and hyponatremia Status: Acute Assessment and Plan: diet related very likely will monitor for now- add diet.supplements if needed Time Spent With Patient Time with patient: 25 - 35 minutes Subjective Date/time seen: 06/17/24 08:01 Interval history: 43-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 Patient is lying in bed. She continues to endorse pain to the sides of her abdomen and a stretching sensation to the center with associated bloating. She has had 1-2 emesis episodes for the past 2 days she states. Denying hematemesis. She has been able to tolerate small portions of her full liquid diet. She endorses mild shortness of breath likely secondary to pleural effusions. She has no other complaints denying chest pain, palpitations, dizziness/lightheadedness, diarrhea. Discussed CT findings of peripancreatic necrosis with GI Dr. Inman and he states that we can continue current antibiotic regimen and start patient on tube feeds via dobhoff. Review of Systems Review of Systems: All systems reviewed & are unremarkable except as noted in HPI and below Exam Narrative: AF HR 100 RR 20 SPO2 92 BP 105/68 General: female in no acute respiratory distress who is nontoxic appearing. HEENT: Normocephalic. Atraumatic. Extraocular movement intact. Sclera clear and anicteric. No facial asymmetry. Chest: Lungs are diminished to auscultation with slight crackles bilaterally to the lower bases. No wheezes. CV: Heart was regular rate and rhythm. S1-S2. No murmurs, gallops, or rubs. Abd: Abdomen slightly tender. Distended. Normal bowel sounds. No organomegaly or masses. Ext: No clubbing, cyanosis, or edema. 2+ DP pulses bilaterally. Neuro: Patient is alert and oriented x4. Cranial nerves 2-12 are intact. Speech is clear. Objective Data Vital Signs Vital Signs: Vital Signs - 24 hr 06/16/24 08:03 06/16/24 08:09 06/16/24 08:09 Temperature Pulse Rate 104 H 103 H Respiratory Rate 20 Blood Pressure Pulse Oximetry 93 Oxygen Delivery Room Air Fraction of Inspired Oxygen 06/16/24 08:19 06/16/24 12:01 06/16/24 13:25 Temperature Pulse Rate 104 H 111 H Respiratory Rate 20 Blood Pressure Pulse Oximetry 96 Oxygen Delivery Room Air Fraction of Inspired Oxygen 06/16/24 13:25 06/16/24 13:35 06/16/24 14:00 Temperature 97.6 F Pulse Rate 99 98 109 H Respiratory Rate 20 20 14 Blood Pressure 110/66 Pulse Oximetry 97 Oxygen Delivery Fraction of Inspired Oxygen 06/16/24 16:03 06/16/24 20:10 06/16/24 20:10 Temperature Pulse Rate 105 H 105 H Respiratory Rate Blood Pressure Pulse Oximetry Oxygen Delivery Room Air Fraction of Inspired Oxygen 06/16/24 22:00 06/16/24 22:18 06/17/24 00:00 Temperature 98.0 F Pulse Rate 108 H 101 H 109 H Respiratory Rate 18 20 Blood Pressure 115/75 Pulse Oximetry 96 Oxygen Delivery Fraction of Inspired Oxygen 06/17/24 04:00 06/17/24 06:00 06/17/24 07:22 Temperature 97.8 F Pulse Rate 102 H 100 Respiratory Rate 18 Blood Pressure 105/68 Pulse Oximetry 96 92 Oxygen Delivery Room Air Fraction of Inspired Oxygen 21 06/17/24 07:22 06/17/24 07:32 Temperature Pulse Rate 99 100 Respiratory Rate 20 20 Blood Pressure Pulse Oximetry Oxygen Delivery Fraction of Inspired Oxygen Intake/Output Intake/Output: Intake & Output 06/14/24 06/15/24 06/16/24 06/17/24 23:59 23:59 23:59 23:59 Intake Total 2228.8 1360 3650 550 Output Total 3200 3750 450 Balance 2228.8 -1840 -100 100 Meds/Results Medications: Active Medications Generic Name Dose Route Start Last Admin Trade Name Freq PRN Reason Stop Dose Admin Acetaminophen 500 mg 06/09/24 18:49 06/10/24 10:14 Acetaminophen 500 Mg Tablet PO 500 mg Q6H PRN Administration Pain Rated 1-3 Hydrocodone Bitart/Acetaminophen 1 tab 06/09/24 18:49 06/16/24 17:57 Hydrocodone/Acetaminophen (*Crx) 5-325 Mg Tablet PO 1 tab Q4H PRN Administration Pain Rated 4-6 Hydrocodone Bitart/Acetaminophen 1 tab 06/09/24 18:49 06/14/24 14:29 Hydrocodone/Acetaminophen (*Crx) 7.5-325 Mg Tablet PO 1 tab Q4H PRN Administration Pain Rated 7-10 Diphenhydramine HCl 25 mg 06/09/24 18:49 06/17/24 05:19 Diphenhydramine Hcl Inj 50 Mg/Ml Vial IV PUSH 25 mg Q6H PRN Administration Itching Famotidine 20 mg 06/11/24 21:00 06/16/24 21:05 Famotidine 20 Mg/2 Ml Vial IV PUSH 20 mg Q12HR MALINA Administration Ibuprofen 800 mg in 200 mls @ 400 mls/hr 06/09/24 18:49 06/16/24 20:10 Caldolor 800 Mg/200 Ml IVPB Infused Q6H PRN Infusion Breakthrough Pain Rated 1-3 or NPO Cefepime HCl 2 gm in 50 mls @ 100 mls/hr 06/15/24 01:00 06/17/24 01:27 Maxipime 2 Gm/Ns 50 Ml IVPB Infused Q12H MALINA Infusion Vancomycin HCl 1,250 mg in 250 mls @ 166.667 mls/hr 06/16/24 14:00 06/17/24 0 6:47 Vancomycin 1,250 Mg/Ns 250 Ml IVPB Infused Q8H MALINA Infusion Potassium Chloride 40 meq/ 520 mls @ 130 mls/hr 06/17/24 06:26 06/17/24 06:56 Sodium Chloride IVPB 06/17/24 10:25 130 mls/hr ONCE ONE Administration Levalbuterol HCl 1.25 mg 06/16/24 02:00 06/17/24 07:22 Levalbuterol Neb 1.25 Mg/3 Ml INHALATION 1.25 mg Q6HRT MALINA Administration Levofloxacin 750 mg 06/14/24 09:00 06/16/24 08:34 Levofloxacin 750 Mg Tablet PO 06/18/24 09:01 750 mg DAILY MALINA Administration Morphine Sulfate 2 mg 06/09/24 18:49 06/15/24 04:41 Morphine Sulfate (*Crx) 2 Mg/Ml Inj IV PUSH 2 mg Q2H PRN Administration Breakthrough Pain Rated 4-6 or NPO Morphine Sulfate 4 mg 06/09/24 18:49 06/14/24 16:38 Morphine Sulfate (*Crx) 4 Mg/Ml Inj IV PUSH 4 mg Q2H PRN Administration Breakthrough Pain Rated 7-10 or NPO Naloxone HCl 0.1 mg 06/09/24 18:49 Naloxone Hcl 0.4 Mg/Ml Vial IV PUSH Q2M PRN Opiate Reversal Ondansetron HCl 4 mg 06/09/24 18:49 06/17/24 02:44 Ondansetron Inj 4 Mg/2 Ml Vial IV PUSH 4 mg Q4H PRN Administration Nausea And Vomiting Potassium Chloride 40 meq 06/13/24 11:00 06/16/24 08:35 Potassium Chloride 20 Meq Packet (For Liquid) PO 40 meq DAILY MALINA Administration Radiology Results: ITS Impressions Abdomen Ultrasound 06/08/24 17:38 IMPRESSION: 1. Gallbladder sludge without evident shadowing cholelithiasis over this might be due to the relatively tiny size of the few calcific stone seen on prior CT. 2. Normal proximal common bile duct measurement of 4-5 mm however the more distal duct which was dilated to [address] is obscured. If there is continued clinical concern for biliary obstruction would consider MRCP for further evaluation. MRCP 06/09/24 10:50 IMPRESSION: 1. Cholelithiasis with 3-4 mm stone in the cystic duct which has a low confluence with the distal common bile duct. No dilation of the gallbladder to suggest a significant obstruction or acute cholecystitis. 2. Mild pulmonary edema, trace bilateral pleural effusions and trace amount of perihepatic and perisplenic ascites. Cholangiogram,Operative 06/09/24 18:21 IMPRESSION: 1. 4 mm stone in the distal common bile duct. 2. Two 3 mm filling defects in the cystic duct which may be gas bubbles or stones. Endo Retro Cholangiopancreatogram 06/10/24 16:18 IMPRESSION: 1. Enlarged common duct. Please refer to the ERCP procedure note for additional details. Abdomen/Pelvis CT 06/12/24 13:23 Impression: Acute pancreatitis, with significant interval worsening of peripancreatic fluid and inflammatory change, with fluid extending into the right paracolic gutter and pelvis. No pancreatic necrosis or pseudocyst. 3.6 cm left ovarian cyst. [id number] right pleural effusion and small left pleural effusion. Chest X-Ray 06/14/24 21:50 IMPRESSION: Scattered bilateral patchy pulmonary infiltrates, most prominent in the lower lobes, increased since earlier today, suggesting worsening bilateral pneumonia Abdomen X-Ray 06/15/24 05:43 IMPRESSION: 1. Nonobstructive bowel gas pattern. Chest CTA 06/15/24 06:41 IMPRESSION: 1. No pulmonary embolus. 2. Small pleural effusions. 3. Acute interstitial pancreatitis. Labs Labs: Laboratory Results - last 24 hr 06/16/24 06/16/24 06/17/24 13:00 17:06 04:35 Sodium Cancelled Potassium 2.7 L* Cancelled Chloride Cancelled Carbon Dioxide Cancelled Anion Gap Cancelled BUN Cancelled Creatinine Cancelled Estim Creat Clear Calc Cancelled Estimated GFR Cancelled Glucose Cancelled Calcium Cancelled Total Bilirubin 1.4 H Direct Bilirubin 0.0 AST 35 ALT 27 Alkaline Phosphatase 143 H Total Protein 5.0 L Albumin 2.3 L Vancomycin Trough 6.7 L 06/17/24 04:44 Sodium 138 Potassium 2.6 L* Chloride 105 Carbon Dioxide 26 Anion Gap 7 BUN 7 Creatinine 0.60 L Estim Creat Clear Calc Not Reportable Estimated GFR > 60 Glucose 86 Calcium 8.1 L Total Bilirubin Direct Bilirubin AST ALT Alkaline Phosphatase Total Protein Albumin Vancomycin Trough Quality VTE Prophylaxis VTE prophylaxis: mechanical ordered
[2024-06-17] MEDS: HYDROcodone/acetaminophen (*CRX) 5-325 MG TABLET 1 TAB PO (08:33)
[2024-06-17] MEDS: FAMOTIDINE 20 MG/2 ML VIAL IV PUSH ×2 (08:34→20:26)
[2024-06-17] MEDS: levoFLOXacin 750 MG TABLET PO (08:34)
[2024-06-17] MEDS: POTASSIUM CHLORIDE 20 MEQ PACKET (FOR LIQUID) 40 MEQ PO (08:34)
[2024-06-17 10:39] LABS: Lipase 396 U/L (23-300)
--- NOTE | 2024-06-17 11:14 | P.PNGI_ITS ---
Progress Note: A&P Assessment and Plan (1) Post-ERCP acute pancreatitis: Code(s): K91.89 - Other postprocedural complications and disorders of digestive system; K85.90 - Acute pancreatitis without necrosis or infection, unspecified Status: Acute Assessment and Plan: she is on full liquid diet, few days ago had CT chest no PE and noted similar pancreatitis pain meds and antiemetics prn (2) Elevated LFTs: Code(s): R79.89 - Other specified abnormal findings of blood chemistry Status: Acute Assessment and Plan: improved normal transaminases bili 1.4 (3) Cholelithiasis: Qualifiers: Cholelithiasis location: gallbladder and bile duct Cholecystitis presence: without cholecystitis Biliary obstruction: with biliary obstruction Qualified Code(s): K80.71 - Calculus of gallbladder and bile duct without cholecystitis with obstruction Code(s): K80.20 - Calculus of gallbladder without cholecystitis without obstruction Status: Acute Assessment and Plan: s/p lap felicia (4) Acute epigastric pain: Code(s): R10.13 - Epigastric pain Status: Acute Assessment and Plan: still requiring some pain meds (5) Common bile duct dilatation: Code(s): K83.8 - Other specified diseases of biliary tract Status: Acute Assessment and Plan: s/p ercp Subjective Date/time seen: 06/17/24 11:14 Interval history: similar pain and nausea today, no fever Review of Systems Review of Systems: All systems reviewed & are unremarkable except as noted in HPI and below Exam Const: General: no acute distress HENMT: Face/Nose/Sinus: Normal nares present Eyes: General: appearance normal, both eyes and all related structures Neck: Neck: supple Resp: Effort & Inspection: normal respiratory effort Auscultation: no crackles and diminished lung sounds Cardio: Rate: regular rate GI: GI Palp: Yes Soft to palpation and Yes Tenderness to palpation present (GI) (mild ttp, no rebound) Auscultation: normal bowel sounds Skin: General skin exam: normal color Neuro: Speech: normal speech Motor exam (neuro): 5/5 motor strength present throughout Extrem: General: normal to inspection Psych: Mental Status: mental status grossly normal Objective Data Vital Signs Vital Signs: Vital Signs - 24 hr 06/16/24 12:01 06/16/24 13:25 06/16/24 13:25 Temperature Pulse Rate 111 H 99 Respiratory Rate 20 Blood Pressure Pulse Oximetry 96 Oxygen Delivery Room Air Fraction of Inspired Oxygen 06/16/24 13:35 06/16/24 14:00 06/16/24 16:03 Temperature 97.6 F Pulse Rate 98 109 H 105 H Respiratory Rate 20 14 Blood Pressure 110/66 Pulse Oximetry 97 Oxygen Delivery Fraction of Inspired Oxygen 06/16/24 20:10 06/16/24 20:10 06/16/24 22:00 Temperature 98.0 F Pulse Rate 105 H 108 H Respiratory Rate 18 Blood Pressure 115/75 Pulse Oximetry 96 Oxygen Delivery Room Air Fraction of Inspired Oxygen 06/16/24 22:18 06/17/24 00:00 06/17/24 04:00 Temperature Pulse Rate 101 H 109 H 102 H Respiratory Rate 20 Blood Pressure Pulse Oximetry Oxygen Delivery Fraction of Inspired Oxygen 06/17/24 06:00 06/17/24 07:22 06/17/24 07:22 Temperature 97.8 F Pulse Rate 100 99 Respiratory Rate 18 20 Blood Pressure 105/68 Pulse Oximetry 96 92 Oxygen Delivery Room Air Fraction of Inspired Oxygen 21 06/17/24 07:32 Temperature Pulse Rate 100 Respiratory Rate 20 Blood Pressure Pulse Oximetry Oxygen Delivery Fraction of Inspired Oxygen Intake/Output Intake/Output: Intake & Output 06/14/24 06/15/24 06/16/24 06/17/24 23:59 23:59 23:59 23:59 Intake Total 2228.8 1360 3650 600 Output Total 3200 3750 450 Balance 2228.8 -1840 -100 150 Meds/Results Medications: Active Medications Generic Name Dose Route Start Last Admin Trade Name Freq PRN Reason Stop Dose Admin Acetaminophen 500 mg 06/09/24 18:49 06/10/24 10:14 Acetaminophen 500 Mg Tablet PO 500 mg Q6H PRN Administration Pain Rated 1-3 Hydrocodone Bitart/Acetaminophen 1 tab 06/09/24 18:49 06/17/24 08:33 Hydrocodone/Acetaminophen (*Crx) 5-325 Mg Tablet PO 1 tab Q4H PRN Administration Pain Rated 4-6 Hydrocodone Bitart/Acetaminophen 1 tab 06/09/24 18:49 06/14/24 14:29 Hydrocodone/Acetaminophen (*Crx) 7.5-325 Mg Tablet PO 1 tab Q4H PRN Administration Pain Rated 7-10 Diphenhydramine HCl 25 mg 06/09/24 18:49 06/17/24 05:19 Diphenhydramine Hcl Inj 50 Mg/Ml Vial IV PUSH 25 mg Q6H PRN Administration Itching Famotidine 20 mg 06/11/24 21:00 06/17/24 08:34 Famotidine 20 Mg/2 Ml Vial IV PUSH 20 mg Q12HR MALINA Administration Ibuprofen 800 mg in 200 mls @ 400 mls/hr 06/09/24 18:49 06/16/24 20:10 Caldolor 800 Mg/200 Ml IVPB Infused Q6H PRN Infusion Breakthrough Pain Rated 1-3 or NPO Cefepime HCl 2 gm in 50 mls @ 100 mls/hr 06/15/24 01:00 06/17/24 01:27 Maxipime 2 Gm/Ns 50 Ml IVPB Infused Q12H MALINA Infusion Levalbuterol HCl 1.25 mg 06/16/24 02:00 06/17/24 07:22 Levalbuterol Neb 1.25 Mg/3 Ml INHALATION 1.25 mg Q6HRT MALINA Administration Levofloxacin 750 mg 06/14/24 09:00 06/17/24 08:34 Levofloxacin 750 Mg Tablet PO 06/18/24 09:01 750 mg DAILY MALINA Administration Morphine Sulfate 2 mg 06/09/24 18:49 06/15/24 04:41 Morphine Sulfate (*Crx) 2 Mg/Ml Inj IV PUSH 2 mg Q2H PRN Administration Breakthrough Pain Rated 4-6 or NPO Morphine Sulfate 4 mg 06/09/24 18:49 06/14/24 16:38 Morphine Sulfate (*Crx) 4 Mg/Ml Inj IV PUSH 4 mg Q2H PRN Administration Breakthrough Pain Rated 7-10 or NPO Naloxone HCl 0.1 mg 06/09/24 18:49 Naloxone Hcl 0.4 Mg/Ml Vial IV PUSH Q2M PRN Opiate Reversal Ondansetron HCl 4 mg 06/09/24 18:49 06/17/24 08:38 Ondansetron Inj 4 Mg/2 Ml Vial IV PUSH 4 mg Q4H PRN Administration Nausea And Vomiting Potassium Chloride 40 meq 06/13/24 11:00 06/17/24 08:34 Potassium Chloride 20 Meq Packet (For Liquid) PO 40 meq DAILY MALINA Administration Radiology Results: ITS Impressions Abdomen Ultrasound 06/08/24 17:38 IMPRESSION: 1. Gallbladder sludge without evident shadowing cholelithiasis over this might be due to the relatively tiny size of the few calcific stone seen on prior CT. 2. Normal proximal common bile duct measurement of 4-5 mm however the more distal duct which was dilated to [address] is obscured. If there is continued clinical concern for biliary obstruction would consider MRCP for further evaluation. MRCP 06/09/24 10:50 IMPRESSION: 1. Cholelithiasis with 3-4 mm stone in the cystic duct which has a low confluen ce with the distal common bile duct. No dilation of the gallbladder to suggest a significant obstruction or acute cholecystitis. 2. Mild pulmonary edema, trace bilateral pleural effusions and trace amount of perihepatic and perisplenic ascites. Cholangiogram,Operative 06/09/24 18:21 IMPRESSION: 1. 4 mm stone in the distal common bile duct. 2. Two 3 mm filling defects in the cystic duct which may be gas bubbles or stones. Endo Retro Cholangiopancreatogram 06/10/24 16:18 IMPRESSION: 1. Enlarged common duct. Please refer to the ERCP procedure note for additional details. Abdomen/Pelvis CT 06/12/24 13:23 Impression: Acute pancreatitis, with significant interval worsening of peripancreatic fluid and inflammatory change, with fluid extending into the right paracolic gutter and pelvis. No pancreatic necrosis or pseudocyst. 3.6 cm left ovarian cyst. [id number] right pleural effusion and small left pleural effusion. Chest X-Ray 06/14/24 21:50 IMPRESSION: Scattered bilateral patchy pulmonary infiltrates, most prominent in the lower lobes, increased since earlier today, suggesting worsening bilateral pneumonia Abdomen X-Ray 06/15/24 05:43 IMPRESSION: 1. Nonobstructive bowel gas pattern. Chest CTA 06/15/24 06:41 IMPRESSION: 1. No pulmonary embolus. 2. Small pleural effusions. 3. Acute interstitial pancreatitis. Labs Labs: Laboratory Results - last 24 hr 06/16/24 06/16/24 06/17/24 13:00 17:06 04:35 WBC 26.8 H RBC 3.44 L Hgb 10.6 L Hct 31.1 L MCV 90.4 MCH 30.8 MCHC 34.1 RDW 13.5 Plt Count 319 MPV 9.5 Immature Gran % (Auto) 3.7 H Neut % (Auto) 92.5 H Lymph % (Auto) 1.8 L [place] % (Auto) 1.9 L Eos % (Auto) 0.1 Baso % (Auto) 0.0 L Lymph # (Auto) 0.47 L [place] # (Auto) 0.5 Eos # (Auto) 0.0 Baso # (Auto) 0.0 Abs Immat Gran (auto) 0.99 H Absolute Neuts (auto) 24.8 H Absolute Nucleated RBC 0.000 Nucleated RBC % 0.0 Sodium Cancelled Potassium 2.7 L* Cancelled Chloride Cancelled Carbon Dioxide Cancelled Anion Gap Cancelled BUN Cancelled Creatinine Cancelled Estim Creat Clear Calc Cancelled Estimated GFR Cancelled Glucose Cancelled Calcium Cancelled Total Bilirubin 1.4 H Direct Bilirubin 0.0 AST 35 ALT 27 Alkaline Phosphatase 143 H Total Protein 5.0 L Albumin 2.3 L Lipase 396 H Vancomycin Trough 6.7 L 06/17/24 04:44 WBC RBC Hgb Hct MCV MCH MCHC RDW Plt Count MPV Immature Gran % (Auto) Neut % (Auto) Lymph % (Auto) [place] % (Auto) Eos % (Auto) Baso % (Auto) Lymph # (Auto) [place] # (Auto) Eos # (Auto) Baso # (Auto) Abs Immat Gran (auto) Absolute Neuts (auto) Absolute Nucleated RBC Nucleated RBC % Sodium 138 Potassium 2.6 L* Chloride 105 Carbon Dioxide 26 Anion Gap 7 BUN 7 Creatinine 0.60 L Estim Creat Clear Calc Not Reportable Estimated GFR > 60 Glucose 86 Calcium 8.1 L Total Bilirubin Direct Bilirubin AST ALT Alkaline Phosphatase Total Protein Albumin Lipase Vancomycin Trough
[2024-06-17 13:09] LABS: Potassium 3.4 mmol/L (3.4-5.0)
[2024-06-17] MEDS: LACTATED RINGERS 1,000 ML 75 ML IV CONT (16:31)
[2024-06-17] MEDS: IBUPROFEN IV 800 MG/200 ML 800 MG/200 ML BAG 400 MG IVPB ×2 (16:33→22:32)
[2024-06-18] VITALS (11 sets, daily range): BP systolic 118–123; BP diastolic 82–83; PULSE 78–112; RESP 14–18; TEMP 36.8–36.9; O2SAT 92–95
[2024-06-18] MEDS: ONDANSETRON INJ 4 MG/2 ML VIAL IV PUSH ×3 (02:03→17:06)
[2024-06-18] MEDS: MORPHINE SULFATE (*CRX) 2 MG/ML INJ IV PUSH (05:44)
[2024-06-18 06:13] LABS: Eosinophils Absolute Auto 0.1 K/mm3 (0-0.3); Eosinophils Percent Auto 0.5 % (0-4.4); Hematocrit 31.4 % (37.0-47.0); Hemoglobin 10.6 g/dL (12.0-15.0); Immature Granulocyte Absolute 1.11 K/mm3 (0.00-0.031); Immature Granulocyte Percent A 4.1 % (0-0.5); Lymphocytes Absolute Auto 0.53 K/mm3 (0.9-3.2); Mean Corpuscular HGB Conc 33.8 g/dl (32-36); Mean Corpuscular Hemoglobin 30.5 pg (26-34); Mean Corpuscular Volume 90.2 fl (80-100); Monocytes Absolute Auto 0.5 K/mm3 (0.1-0.6); Monocytes Percent Auto 1.9 % (2.6-8.5); Neutrophils Absolute Auto 24.7 K/mm3 (1.3-6.7); Neutrophils Percent Auto 91.5 % (45.5-73.1); Platelet Count Result 284 k/mm3 (150-375); Red Blood Count 3.48 M/mm3 (4.2-5.4); Red Cell Distribution Width 13.6 % (11.5-14.5)
[2024-06-18 06:26] LABS: Alanine Aminotransferase 22 U/L (6-35); Albumin Level 2.2 g/dL (3.5-5.1); Alkaline Phosphatase 129 U/L (38-126); Anion Gap 4 mmol/L (4-12); Aspartate Amino Transferase 37 U/L (14-36); Bilirubin,Total 1.7 mg/dL (0.2-1.3); Blood Urea Nitrogen 12 mg/dL (7-17); Carbon Dioxide 26 mmol/L (22-30); Chloride 108 mmol/L (98-107); Estimated Glomerular Filt Rate > 60; Glucose 83 mg/dL (65-110); Sodium 138 mmol/L (137-145)
[2024-06-18 06:59] LABS: Platelet Estimate Adequate (Adequate)
[2024-06-18 07:00] LABS: Anisocytosis 1+; Hypochromasia 1+; Schistocytes None Seen
[2024-06-18] MEDS: LEVALBUTEROL NEB 1.25 MG/3 ML INHALATION ×2 (07:20→13:05)
[2024-06-18] MEDS: LACTATED RINGERS 1,000 ML 75 ML IV CONT (07:48)
[2024-06-18] MEDS: FAMOTIDINE 20 MG/2 ML VIAL IV PUSH (08:00)
--- NOTE | 2024-06-18 09:38 | PM.IMPN ---
Progress Note: A&P Assessment and Plan (1) Cholelithiasis: Qualifiers: Biliary obstruction: with biliary obstruction Cholecystitis presence: without cholecystitis Cholelithiasis location: gallbladder and bile duct Qualified Code(s): K80.71 - Calculus of gallbladder and bile duct without cholecystitis with obstruction Code(s): K80.20 - Calculus of gallbladder without cholecystitis without obstruction Status: Acute Assessment and Plan: - Elevated LFTs, downtrending - Abdomen/Pelvis CT 1. Cholelithiasis with mild dilation the common bile duct 8 mm in minimal central and hepatic biliary ductal dilation. No distal obstructing stone identified although could consider MRCP for more sensitive evaluation as clinically indicated. 2. 3.7 cm left adnexal cyst. - Abdomen Ultrasound 1. Gallbladder sludge without evident shadowing cholelithiasis over this might be due to the relatively tiny size of the few calcific stone seen on prior CT. 2. Normal proximal common bile duct measurement of 4-5 mm however the more distal duct which was dilated to [address] is obscured. - MRCP 1. Cholelithiasis with 3-4 mm stone in the cystic duct which has a low confluence with the distal common bile duct. No dilation of the gallbladder to suggest a significant obstruction or acute cholecystitis. 2. Mild pulmonary edema, trace bilateral pleural effusions and trace amount of perihepatic and perisplenic ascites. - ERCP with sphincterotomy and stone extraction on 06/10 - IV pain management - Monitor vital signs, I and O's, check stool output, neuro status and patient is a fall risk - Monitor serum electrolytes and CBC - Consult GI for further evaluation, appreciate assistance and recommendation See MRCP result above - Consult surgery for further evaluation, appreciate assistance and recommendation - Laparoscopic cholecystectomy with DR. Paulino-06/09 - continue supportive care (2) Post-ERCP acute pancreatitis: Code(s): K91.89 - Other postprocedural complications and disorders of digestive system; K85.90 - Acute pancreatitis without necrosis or infection, unspecified Status: Acute Assessment and Plan: ERCP with sphincterotomy and stone extraction on 06/10 - Lipase 3852 on 06/11, repeat 396 - CT abd/pelvis 06/10: Acute interstitial pancreatitis - CT abd/pelvis 06/12: Acute pancreatitis, with significant interval worsening of peripancreatic fluid and inflammatory change, with fluid extending into the right paracolic gutter and pelvis. No pancreatic necrosis or pseudocyst. - diet: NPO pending dobhoff placement and PPN recommendations per nutrition - LR 75 ml/hr - pain control - GI following 06/17: Worsening leukocytosis on current antibiotics, repeat CT. - CT abd/pelvis 06/17: Stable findings of acute pancreatitis with peripancreatic necrosis. - Discussed CT findings with GI Dr. Inman, continue current antibiotic regimen and start patient on tube feeds via Dobbhoff. - Consult made to nutrition for tube feeds 06[place]18: [place] [id number] - Antibiotics: Levaquin started 06/14, cefepime started on 06/15, vanc started 06/16 discontinued 06/17 as MRSA negative, flagyl started on 06/18 - Spoke with Dr. Rivero, [facility] hepatobiliary plans to accept patient as a consult per [facility] hospitalist team. He states to place an NG tube and start tube feeds on patient. Continue antibiotics as prescribed. Dr. Han hospitalist accepting physician at [facility] hospital for priority transfer. (3) Transaminitis: Code(s): R74.01 - Elevation of levels of liver transaminase levels Status: Acute Assessment and Plan: LFTs on admission: Tot bili 2.4, AST 1378, ALT 812, Alk phos 161 Likely secondary to common bile duct and hepatic biliary ductal dilation as seen on imaging - LFTs on am labs: Tot bili 1.7, AST 37, ALT 22, Alk phos 129 - See cholelithiasis plan #1 - Monitor (4) Common bile duct dilatation: Code(s): K83.8 - Other specified diseases of biliary tract Status: Acute Assessment and Plan: see choledocholithiasis plan #1 (5) Pleural effusion: Code(s): J90 - Pleural effusion, not elsewhere classified Status: Acute Assessment and Plan: - CT abd/pelvis 06/10: small pleural effusions - CT abd/pelvis 06/12: small to mod right pleural effusion and small left pleural effusion - Chest XR 06/14: Worsened airspace opacities in left lower lung zone, consistent with atelectasis versus pneumonia. Small left pleural effusion. - Chest CTA 06/15: No PE, small pleural effusions - Antibiotics: Levaquin started 06/14, cefepime started on 06/15, vanc started 06/16 discontinued 06/17 as MRSA negative, flagyl started on 06/18 - Unable to give lasix at this time as patient has been borderline hypotensive - Viral PCR: negative for Flu/COVID/RSV - Back on baseline room air, was originally requiring 4L NC - Monitor vital signs, I&Os, neuro status and patient is a fall risk - Follow WBC, serum electrolytes, temperature curves and cultures - Pulmonology consulted (6) Hypokalemia: Code(s): E87.6 - Hypokalemia Status: Acute Assessment and Plan: intake related will replace IV repeat later today- ordered 06/17 mag replaced (7) Hyponatremia: Code(s): E87.1 - Hypo-osmolality and hyponatremia Status: Acute Assessment and Plan: diet related very likely will monitor for now- add diet.supplements if needed Time Spent With Patient Time with patient: Greater than 35 minutes Subjective Date/time seen: 06/18/24 09:38 Interval history: 43-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 Patient is pleasant lying in bed. She continues to endorse pain to the bilateral sides that she states is currently controlled on the pain regimen. Discussed patient with Dr. Roman and will hold off on placing a dobhoff and tube feeds at this time given patients worsening WBC and continued pancreatitis. Surgery reconsulted. Per surgery they do not perform pancreatitis surgery and if concerns for infected pancreatitis then consider transferring to a facility with hepatobiliary surgeons. Call made to [facility] for potential transfer. Spoke with Dr. Rivero, hepatobiliary plans to accept patient as a consult per [facility] hospitalist team. He states to place an NG tube and start tube feeds on patient. Continue antibiotics as prescribed. Dr. Han hospitalist accepting physician at [facility] for priority transfer. Returned to patients room and discussed transfer. She is in agreement with current plan. Review of Systems Review of Systems: All systems reviewed & are unremarkable except as noted in HPI and below Exam Narrative: AF HR 100 RR 14 Spo2 93 BP 118/83 General: female in no acute respiratory distress who is nontoxic appearing. HEENT: Normocephalic. Atraumatic. Extraocular movement intact. Sclera clear and anicteric. No facial asymmetry. Chest: Lungs are diminished to auscultation bilaterally to the lower bases. No wheezes. CV: Heart was regular rate and rhythm. S1-S2. No murmurs, gallops, or rubs. Abd: Abdomen slightly tender. Distended. Normal bowel sounds. No organomegaly or masses. Incisions are clean/dry/intact. Ext: No clubbing, cyanosis, or edema. 2+ DP pulses bilaterally. Neuro: Patient is alert and oriented x4. Cranial nerves 2-12 are intact. Speech is clear. Objective Data Vital Signs Vital Signs: Vital Signs - 24 hr 06/17/24 12:00 06/17/24 13:35 06/17/24 13:42 Temperature Pulse Rate 106 H 95 100 Respiratory Rate 18 18 Blood Pressure Pulse Oximetry Oxygen Delivery 06/17/24 14:00 06/17/24 16:00 06/17/24 20:00 Temperature 97.7 F Pulse Rate 96 111 H Respiratory Rate 17 Blood Pressure 115/62 Pulse Oximetry 97 Oxygen Delivery Room Air 06/17/24 20:00 06/17/24 21:32 06/17/24 21:32 Temperature Pulse Rate 109 H 109 H Respiratory Rate 18 Blood Pressure Pulse Oximetry 99 Oxygen Delivery Room Air 06/17/24 22:26 06/18/24 00:00 06/18/24 04:00 Temperature 98.3 F Pulse Rate 98 106 H 108 H Respiratory Rate 14 Blood Pressure 119/75 Pulse Oximetry 94 Oxygen Delivery 06/18/24 06:53 06/18/24 07:20 06/18/24 07:20 Temperature 98.3 F Pulse Rate 100 78 78 Respiratory Rate 14 18 18 Blood Pressure 118/83 Pulse Oximetry 93 92 Oxygen Delivery Room Air 06/18/24 07:30 06/18/24 08:02 Temperature Pulse Rate 80 Respiratory Rate 18 Blood Pressure Pulse Oximetry Oxygen Delivery Room Air Intake/Output Intake/Output: Intake & Output 06/15/24 06/16/24 06/17/24 06/18/24 23:59 23:59 23:59 23:59 Intake Total 1360 3650 950 1000 Output Total 3200 3750 1350 800 Balance -1840 -100 -400 200 Meds/Results Medications: Active Medications Generic Name Dose Route Start Last Admin Trade Name Freq PRN Reason Stop Dose Admin Acetaminophen 500 mg 06/09/24 18:49 06/10/24 10:14 Acetaminophen 500 Mg Tablet PO 500 mg Q6H PRN Administration Pain Rated 1-3 Hydrocodone Bitart/Acetaminophen 1 tab 06/09/24 18:49 06/17/24 08:33 Hydrocodone/Acetaminophen (*Crx) 5-325 Mg Tablet PO 1 tab Q4H PRN Administration Pain Rated 4-6 Hydrocodone Bitart/Acetaminophen 1 tab 06/09/24 18:49 06/14/24 14:29 Hydrocodone/Acetaminophen (*Crx) 7.5-325 Mg Tablet PO 1 tab Q4H PRN Administration Pain Rated 7-10 Diphenhydramine HCl 25 mg 06/09/24 18:49 06/17/24 05:19 Diphenhydramine Hcl Inj 50 Mg/Ml Vial IV PUSH 25 mg Q6H PRN Administration Itching Famotidine 20 mg 06/11/24 21:00 06/18/24 08:00 Famotidine 20 Mg/2 Ml Vial IV PUSH 20 mg Q12HR MALINA Administration Ibuprofen 800 mg in 200 mls @ 400 mls/hr 06/09/24 18:49 06/17/24 22:32 Caldolor 800 Mg/200 Ml IVPB 400 mls/hr Q6H PRN Administration Breakthrough Pain Rated 1-3 or NPO Cefepime HCl 2 gm in 50 mls @ 100 mls/hr 06/15/24 01:00 06/18/24 00:00 Maxipime 2 Gm/Ns 50 Ml IVPB 100 mls/hr Q12H MALINA Administration Lactated Ringer's 1,000 mls @ 75 mls/hr 06/17/24 16:05 06/18/24 07:48 Lr - Lactated Ringers Iv IV CONT 75 mls/hr .[id number] MALINA Administration Lactated Ringer's 1,000 mls @ 75 mls/hr 06/18/24 09:40 Lr - Lactated Ringers Iv IV CONT .[id number] MALINA Levofloxacin/Dextrose 750 mg in 150 mls @ 100 mls/hr 06/18/24 09:40 Levaquin 750 Mg/D5w 150 Ml IVPB Q24H MALINA Levalbuterol HCl 1.25 mg 06/16/24 02:00 06/18/24 07:20 Levalbuterol Neb 1.25 Mg/3 Ml INHALATION 1.25 mg Q6HRT MALINA Administration Morphine Sulfate 2 mg 06/09/24 18:49 06/18/24 05:44 Morphine Sulfate (*Crx) 2 Mg/Ml Inj IV PUSH 2 mg Q2H PRN Administration Breakthrough Pain Rated 4-6 or NPO Morphine Sulfate 4 mg 06/09/24 18:49 06/14/24 16:38 Morphine Sulfate (*Crx) 4 Mg/Ml Inj IV PUSH 4 mg Q2H PRN Administration Breakthrough Pain Rated 7-10 or NPO Naloxone HCl 0.1 mg 06/09/24 18:49 Naloxone Hcl 0.4 Mg/Ml Vial IV PUSH Q2M PRN Opiate Reversal Ondansetron HCl 4 mg 06/09/24 18:49 06/18/24 05:40 Ondansetron Inj 4 Mg/2 Ml Vial IV PUSH 4 mg Q4H PRN Administration Nausea And Vomiting Potassium Chloride 40 meq 06/13/24 11:00 06/17/24 08:34 Potassium Chloride 20 Meq Packet (For Liquid) PO 40 meq DAILY MALINA Administration Radiology Results: ITS Impressions Abdomen Ultrasound 06/08/24 17:38 IMPRESSION: 1. Gallbladder sludge without evident shadowing cholelithiasis over this might be due to the relatively tiny size of the few calcific stone seen on prior CT. 2. Normal proximal common bile duct measurement of 4-5 mm however the more distal duct which was dilated to [address] is obscured. If there is continued clinical concern for biliary obstruction would consider MRCP for further evaluation. MRCP 06/09/24 10:50 IMPRESSION: 1. Cholelithiasis with 3-4 mm stone in the cystic duct which has a low confluence with the distal common bile duct. No dilation of the gallbladder to suggest a significant obstruction or acute cholecystitis. 2. Mild pulmonary edema, trace bilateral pleural effusions and trace amount of perihepatic and perisplenic ascites. Cholangiogram,Operative 06/09/24 18:21 IMPRESSION: 1. 4 mm stone in the distal common bile duct. 2. Two 3 mm filling defects in the cystic duct which may be gas bubbles or stones. Endo Retro Cholangiopancreatogram 06/10/24 16:18 IMPRESSION: 1. Enlarged common duct. Please refer to the ERCP procedure note for additional details. Chest X-Ray 06/14/24 21:50 IMPRESSION: Scattered bilateral patchy pulmonary infiltrates, most prominent in the lower lobes, increased since earlier today, suggesting worsening bilateral pneumonia Abdomen X-Ray 06/15/24 05:43 IMPRESSION: 1. Nonobstructive bowel gas pattern. Chest CTA 06/15/24 06:41 IMPRESSION: 1. No pulmonary embolus. 2. Small pleural effusions. 3. Acute interstitial pancreatitis. Abdomen/Pelvis CT 06/17/24 15:04 IMPRESSION: 1. Mild pulmonary edema. 2. Small pleural effusions. 3. Stable findings of acute pancreatitis with peripancreatic necrosis. 4. 3.5 cm cyst in left ovary, likely a follicular cyst. Labs Labs: Laboratory Results - last 24 hr 06/17/24 06/17/24 06/18/24 04:35 12:53 06:03 WBC 27.0 H RBC 3.48 L Hgb 10.6 L Hct 31.4 L MCV 90.2 MCH 30.5 MCHC 33.8 RDW 13.6 Plt Count 284 MPV 9.0 Immature Gran % (Auto) 4.1 H Neut % (Auto) 91.5 H Lymph % (Auto) 2.0 L [place] % (Auto) 1.9 L Eos % (Auto) 0.5 Baso % (Auto) 0.0 L Lymph # (Auto) 0.53 L [place] # (Auto) 0.5 Eos # (Auto) 0.1 Baso # (Auto) 0.0 Abs Immat Gran (auto) 1.11 H Absolute Neuts (auto) 24.7 H Absolute Nucleated RBC 0.000 Nucleated RBC % 0.0 Platelet Estimate Adequate Hypochromasia 1+ Anisocytosis 1+ Schistocytes None seen Sodium 138 Potassium 3.4 3.0 L Chloride 108 H Carbon Dioxide 26 Anion Gap 4 BUN 12 D Creatinine 0.70 Estim Creat Clear Calc Not Reportable Estimated GFR > 60 Glucose 83 Calcium 8.0 L Total Bilirubin 1.7 H AST 37 H ALT 22 Alkaline Phosphatase 129 H Total Protein 5.0 L Albumin 2.2 L Lipase 396 H Quality VTE Prophylaxis VTE prophylaxis: mechanical ordered
[2024-06-18] MEDS: levoFLOXacin 750 MG/D5W 150 ML 750 MG/150 ML BAG 100 MG IVPB (11:23)
--- NOTE | 2024-06-18 11:25 | PM.PNGS ---
Subjective Subjective Date/Time Seen: 06/18/24 11:25 Interval history: Patient continues to be hospitalized with acute pancreatitis after undergoing ERCP. Multiple follow-up CTs have been obtained showing necrotizing pancreatitis. She has already had her gallbladder out. We do not perform pancreatic surgery here. If there is concerns for infected pancreatitis then she needs to be transferred to a facility with hepatobiliary surgeons. Surgery will sign off. Objective Data Vital Signs Vital Signs: Vital Signs - 24 hr 06/17/24 12:00 06/17/24 13:35 06/17/24 13:42 Temperature Pulse Rate 106 H 95 100 Respiratory Rate 18 18 Blood Pressure Pulse Oximetry Oxygen Delivery 06/17/24 14:00 06/17/24 16:00 06/17/24 20:00 Temperature 97.7 F Pulse Rate 96 111 H Respiratory Rate 17 Blood Pressure 115/62 Pulse Oximetry 97 Oxygen Delivery Room Air 06/17/24 20:00 06/17/24 21:32 06/17/24 21:32 Temperature Pulse Rate 109 H 109 H Respiratory Rate 18 Blood Pressure Pulse Oximetry 99 Oxygen Delivery Room Air 06/17/24 22:26 06/18/24 00:00 06/18/24 04:00 Temperature 98.3 F Pulse Rate 98 106 H 108 H Respiratory Rate 14 Blood Pressure 119/75 Pulse Oximetry 94 Oxygen Delivery 06/18/24 06:53 06/18/24 07:20 06/18/24 07:20 Temperature 98.3 F Pulse Rate 100 78 78 Respiratory Rate 14 18 18 Blood Pressure 118/83 Pulse Oximetry 93 92 Oxygen Delivery Room Air 06/18/24 07:30 06/18/24 08:02 Temperature Pulse Rate 80 Respiratory Rate 18 Blood Pressure Pulse Oximetry Oxygen Delivery Room Air Intake/Output Intake/Output: Intake & Output 06/15/24 06/16/24 06/17/24 06/18/24 23:59 23:59 23:59 23:59 Intake Total 1360 3650 950 1000 Output Total 3200 3750 1350 800 Balance -1840 -100 -400 200 Meds/Results Medications: Active Medications Generic Name Dose Route Start Last Admin Trade Name Freq PRN Reason Stop Dose Admin Acetaminophen 500 mg 06/09/24 18:49 06/10/24 10:14 Acetaminophen 500 Mg Tablet PO 500 mg Q6H PRN Administration Pain Rated 1-3 Hydrocodone Bitart/Acetaminophen 1 tab 06/09/24 18:49 06/17/24 08:33 Hydrocodone/Acetaminophen (*Crx) 5-325 Mg Tablet PO 1 tab Q4H PRN Administration Pain Rated 4-6 Hydrocodone Bitart/Acetaminophen 1 tab 06/09/24 18:49 06/14/24 14:29 Hydrocodone/Acetaminophen (*Crx) 7.5-325 Mg Tablet PO 1 tab Q4H PRN Administration Pain Rated 7-10 Diphenhydramine HCl 25 mg 06/09/24 18:49 06/17/24 05:19 Diphenhydramine Hcl Inj 50 Mg/Ml Vial IV PUSH 25 mg Q6H PRN Administration Itching Famotidine 20 mg 06/11/24 21:00 06/18/24 08:00 Famotidine 20 Mg/2 Ml Vial IV PUSH 20 mg Q12HR MALINA Administration Ibuprofen 800 mg in 200 mls @ 400 mls/hr 06/09/24 18:49 06/17/24 22:32 Caldolor 800 Mg/200 Ml IVPB 400 mls/hr Q6H PRN Administration Breakthrough Pain Rated 1-3 or NPO Cefepime HCl 2 gm in 50 mls @ 100 mls/hr 06/15/24 01:00 06/18/24 00:00 Maxipime 2 Gm/Ns 50 Ml IVPB 100 mls/hr Q12H MALINA Administration Lactated Ringer's 1,000 mls @ 75 mls/hr 06/17/24 16:05 06/18/24 07:48 Lr - Lactated Ringers Iv IV CONT 75 mls/hr .[id number] MALINA Administration Levofloxacin/Dextrose 750 mg in 150 mls @ 100 mls/hr 06/18/24 10:00 06/18/24 11:23 Levaquin 750 Mg/D5w 150 Ml IVPB 100 mls/hr DAILY MALINA Administration Metronidazole 500 mg in 100 mls @ 100 mls/hr 06/18/24 11:00 Flagyl 500 Mg/Iso Soln 100 Ml IVPB Q8H MALINA Levalbuterol HCl 1.25 mg 06/16/24 02:00 06/18/24 07:20 Levalbuterol Neb 1.25 Mg/3 Ml INHALATION 1.25 mg Q6HRT MALINA Administration Morphine Sulfate 2 mg 06/09/24 18:49 06/18/24 05:44 Morphine Sulfate (*Crx) 2 Mg/Ml Inj IV PUSH 2 mg Q2H PRN Administration Breakthrough Pain Rated 4-6 or NPO Morphine Sulfate 4 mg 06/09/24 18:49 06/14/24 16:38 Morphine Sulfate (*Crx) 4 Mg/Ml Inj IV PUSH 4 mg Q2H PRN Administration Breakthrough Pain Rated 7-10 or NPO Naloxone HCl 0.1 mg 06/09/24 18:49 Naloxone Hcl 0.4 Mg/Ml Vial IV PUSH Q2M PRN Opiate Reversal Ondansetron HCl 4 mg 06/09/24 18:49 06/18/24 05:40 Ondansetron Inj 4 Mg/2 Ml Vial IV PUSH 4 mg Q4H PRN Administration Nausea And Vomiting Potassium Chloride 40 meq 06/13/24 11:00 06/18/24 11:15 Potassium Chloride 20 Meq Packet (For Liquid) PO Not Given DAILY MALINA Radiology Results: ITS Impressions Abdomen Ultrasound 06/08/24 17:38 IMPRESSION: 1. Gallbladder sludge without evident shadowing cholelithiasis over this might be due to the relatively tiny size of the few calcific stone seen on prior CT. 2. Normal proximal common bile duct measurement of 4-5 mm however the more distal duct which was dilated to [address] is obscured. If there is continued clinical concern for biliary obstruction would consider MRCP for further evaluation. MRCP 06/09/24 10:50 IMPRESSION: 1. Cholelithiasis with 3-4 mm stone in the cystic duct which has a low confluence with the distal common bile duct. No dilation of the gallbladder to suggest a significant obstruction or acute cholecystitis. 2. Mild pulmonary edema, trace bilateral pleural effusions and trace amount of perihepatic and perisplenic ascites. Cholangiogram,Operative 06/09/24 18:21 IMPRESSION: 1. 4 mm stone in the distal common bile duct. 2. Two 3 mm filling defects in the cystic duct which may be gas bubbles or stones. Endo Retro Cholangiopancreatogram 06/10/24 16:18 IMPRESSION: 1. Enlarged common duct. Please refer to the ERCP procedure note for additional details. Chest X-Ray 06/14/24 21:50 IMPRESSION: Scattered bilateral patchy pulmonary infiltrates, most prominent in the lower lobes, increased since earlier today, suggesting worsening bilateral pneumonia Abdomen X-Ray 06/15/24 05:43 IMPRESSION: 1. Nonobstructive bowel gas pattern. Chest CTA 06/15/24 06:41 IMPRESSION: 1. No pulmonary embolus. 2. Small pleural effusions. 3. Acute interstitial pancreatitis. Abdomen/Pelvis CT 06/17/24 15:04 IMPRESSION: 1. Mild pulmonary edema. 2. Small pleural effusions. 3. Stable findings of acute pancreatitis with peripancreatic necrosis. 4. 3.5 cm cyst in left ovary, likely a follicular cyst. Labs Labs: Laboratory Results - last 24 hr 06/17/24 06/18/24 12:53 06:03 WBC 27.0 H RBC 3.48 L Hgb 10.6 L Hct 31.4 L MCV 90.2 MCH 30.5 MCHC 33.8 RDW 13.6 Plt Count 284 MPV 9.0 Immature Gran % (Auto) 4.1 H Neut % (Auto) 91.5 H Lymph % (Auto) 2.0 L [place] % (Auto) 1.9 L Eos % (Auto) 0.5 Baso % (Auto) 0.0 L Lymph # (Auto) 0.53 L [place] # (Auto) 0.5 Eos # (Auto) 0.1 Baso # (Auto) 0.0 Abs Immat Gran (auto) 1.11 H Absolute Neuts (auto) 24.7 H Absolute Nucleated RBC 0.000 Nucleated RBC % 0.0 Platelet Estimate Adequate Hypochromasia 1+ Anisocytosis 1+ Schistocytes None seen Sodium 138 Potassium 3.4 3.0 L Chloride 108 H Carbon Dioxide 26 Anion Gap 4 BUN 12 D Creatinine 0.70 Estim Creat Clear Calc Not Reportable Estimated GFR > 60 Glucose 83 Calcium 8.0 L Total Bilirubin 1.7 H AST 37 H ALT 22 Alkaline Phosphatase 129 H Total Protein 5.0 L Albumin 2.2 L
[2024-06-18] MEDS: metroNIDAZOLE 500 MG/ISO 100ML 500 MG/100 ML BAG 100 MG IVPB (13:30)
--- NOTE | 2024-06-18 13:34 | PCNFU ---
Nutrition Follow-Up Complete: Inadequate Oral Intake as related to cholecysectomy as evidenced by poor po intake for > 5 days. Adequate Intake of at least 75% of meals/supplements Goal: Pt current nutrition is NPO. Nutrition recommendation: Tube feeding order: Vital High Protein at 50 ml/h: 1100 kcal, 96 g protein, 920 ml free water. Flush 100 ml q 4 hours. total water 1520 ml/day Last recorded weight is 79.5 kg. Bowel Motility: Last BM 06/14/24 Labs Reviewed: Hgb 10.6, Hct 31.4, Alb 2.2, K+ 3.0 Meds Noted : [place], Pepcid, LR, Zofran Skin: incision Additional Notes: Communication with provider. Chose Vital HP because low in fat, high in protein, elemental formula per recommendations. Pt is to be transferred. RD will monitor weight, labs, skin, oral intake, meds every 3 days.
[2024-06-18] MEDS: MORPHINE SULFATE (*CRX) 4 MG/ML INJ IV PUSH (14:32)
[2024-06-18] MEDS: CEFEPIME 2 GM/NS 50 ML 2 GM/50 ML BAG IVPB ×2 (14:33)
--- NOTE | 2024-06-18 16:50 | P.TS_ITS ---
Transfer Discharge Sum: Prov Provider Date of admission: 06/11/24 13:00 Primary care physician: PHYSICIAN NOT ON STAFF Admitting clinician: Edy Roman MD Consults: 06/08/24 Consult to Physician Routine Comment: Spoke to office 06/09 0860 ([facility]) Consulting Provider: Darlin Serrano train caller/MD group to consult: cardiology Reason for consultation: bradycardia Has provider been notified: Yes 06/09/24 Consult to Physician Routine Comment: Spoke to office 06/09 0943 ([facility]) Consulting Provider: Ozzie Paulino train caller/MD group to consult: General Surgery Reason for consultation: cholelithiasis Has provider been notified: Yes 06/15/24 Consult to Physician Routine Comment: Left Dr godinez VM @ 0956 06/15 [facility] [place] Consulting Provider: Sara Galvan train caller/MD group to consult: pulmonology Reason for consultation: sob, increased oxygen requirmnts, pulm.effusion Has provider been notified: Yes 06/18/24 Consult to Dietitian Routine Reason for Consult:: Tube feeds Consult to Physician Routine Comment: Spoke to office @ 0945 06/18 [facility] [place] Consulting Provider: Bill Cuevas train caller/MD group to consult: surgery Reason for consultation: peripancreatic necrosis Has provider been notified: Yes Attending physician on discharge: Edy Roman Discharging clinician: Christie Marte Anticipated date of transfer: 06/18/24 Receiving physician/facility: Hospitalist Dr. Han/ [facility] DS: Admitting Diagnosis Discharge Date 06/18/2024 Admitting Diagnosis cholelithiasis post ERCP pancreatitis transaminitis common bile duct dilation pleural effusion hypokalemia hyponatremia DS: Discharge Diagnosis Discharge Diagnosis (1) Cholelithiasis: Qualifiers: Biliary obstruction: with biliary obstruction Cholecystitis presence: without cholecystitis Cholelithiasis location: gallbladder and bile duct Qualified Code(s): K80.71 - Calculus of gallbladder and bile duct without cholecystitis with obstruction Code(s): K80.20 - Calculus of gallbladder without cholecystitis without obstruction Status: Acute (2) Post-ERCP acute pancreatitis: Code(s): K91.89 - Other postprocedural complications and disorders of digestive system; K85.90 - Acute pancreatitis without necrosis or infection, unspecified Status: Acute (3) Transaminitis: Code(s): R74.01 - Elevation of levels of liver transaminase levels Status: Acute (4) Common bile duct dilatation: Code(s): K83.8 - Other specified diseases of biliary tract Status: Acute (5) Pleural effusion: Code(s): J90 - Pleural effusion, not elsewhere classified Status: Acute (6) Hypokalemia: Code(s): E87.6 - Hypokalemia Status: Acute (7) Hyponatremia: Code(s): E87.1 - Hypo-osmolality and hyponatremia Status: Acute Transfer Discharge Sum: Med Medications Active and Home Medications: Home Medications No Home Medications 08/06/22 [History Confirmed 06/08/24] Active Medications Acetaminophen (Acetaminophen 500 Mg Tablet) 500 mg PO Q6H PRN PRN Reason: Pain Rated 1-3 Last Admin: 06/10/24 10:14 Dose: 500 mg Hydrocodone Bitart/Acetaminophen (Hydrocodone/Acetaminophen (*Crx) 5-325 Mg Tablet) 1 tab PO Q4H PRN PRN Reason: Pain Rated 4-6 Last Admin: 06/17/24 08:33 Dose: 1 tab Hydrocodone Bitart/Acetaminophen (Hydrocodone/Acetaminophen (*Crx) 7.5-325 Mg Tablet) 1 tab PO Q4H PRN PRN Reason: Pain Rated 7-10 Last Admin: 06/14/24 14:29 Dose: 1 tab Diphenhydramine HCl (Diphenhydramine Hcl Inj 50 Mg/Ml Vial) 25 mg IV PUSH Q6H PRN PRN Reason: Itching Last Admin: 06/17/24 05:19 Dose: 25 mg Famotidine (Famotidine 20 Mg/2 Ml Vial) 20 mg IV PUSH Q12HR MALINA Last Admin: 06/18/24 08:00 Dose: 20 mg Ibuprofen (Caldolor 800 Mg/200 Ml) 800 mg in 200 mls @ 400 mls/hr IVPB Q6H PRN PRN Reason: Breakthrough Pain Rated 1-3 or NPO Last Admin: 06/17/24 22:32 Dose: 400 mls/hr Cefepime HCl (Maxipime 2 Gm/Ns 50 Ml) 2 gm in 50 mls @ 100 mls/hr IVPB Q12H MALINA Last Admin: 06/18/24 14:33 Dose: 100 mls/hr Lactated Ringer's (Lr - Lactated Ringers Iv) 1,000 mls @ 75 mls/hr IV CONT .[id number] [facility] Last Admin: 06/18/24 07:48 Dose: 75 mls/hr Levofloxacin/Dextrose (Levaquin 750 Mg/D5w 150 Ml) 750 mg in 150 mls @ 100 mls/hr IVPB DAILY [facility] Last Infusion: 06/18/24 13:00 Dose: Infused Metronidazole (Flagyl 500 Mg/Iso Soln 100 Ml) 500 mg in 100 mls @ 100 mls/hr IVPB Q8H [facility] Last Infusion: 06/18/24 14:34 Dose: Infused Levalbuterol HCl (Levalbuterol Neb 1.25 Mg/3 Ml) 1.25 mg INHALATION Q6HRT [facility] Last Admin: 06/18/24 13:05 Dose: 1.25 mg Morphine Sulfate (Morphine Sulfate (*Crx) 2 Mg/Ml Inj) 2 mg IV PUSH Q2H PRN PRN Reason: Breakthrough Pain Rated 4-6 or NPO Last Admin: 06/18/24 05:44 Dose: 2 mg Morphine Sulfate (Morphine Sulfate (*Crx) 4 Mg/Ml Inj) 4 mg IV PUSH Q2H PRN PRN Reason: Breakthrough Pain Rated 7-10 or NPO Last Admin: 06/18/24 14:32 Dose: 4 mg Naloxone HCl (Naloxone Hcl 0.4 Mg/Ml Vial) 0.1 mg IV PUSH Q2M PRN PRN Reason: Opiate Reversal Ondansetron HCl (Ondansetron Inj 4 Mg/2 Ml Vial) 4 mg IV PUSH Q4H PRN PRN Reason: Nausea And Vomiting Last Admin: 06/18/24 05:40 Dose: 4 mg Phenol (Phenol/Sod Pheno [place] (*Bkc)) 1 spray MUCOUS MEM PRN PRN PRN Reason: Sore Throat Potassium Chloride (Potassium Chloride 20 Meq Packet (For Liquid)) 40 meq PO DAILY [facility] Last Admin: 06/18/24 11:15 Dose: Not Given Transfer Discharge Sum: Hosp Hospital Course Hospital course: Rhonda Devlin is a 43-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 She did not meet sepsis criteria on admission. During admission patient required oxygen supplementation likely related to pleural effusion and pneumonia as seen on imaging. Patient was started on antibiotics at that time and weaned back to baseline room air during admission. LFTs were elevated at time of admission. Abdomen/pelvis CT showed cholelithiasis with mild dilation the common bile duct 8 mm in minimal central and hepatic biliary ductal dilation, no distal obstructing stone identified. An abdomen US showed gallbladder sludge without evident shadowing cholelithiasis over this might be due to the relatively tiny size of the few calcific stone and normal proximal common bile duct measurement of 4-5 mm. MRCP showed cholelithiasis with 3-4 mm stone in the cystic duct which has a low confluence with the distal common bile duct, no dilation of the gallbladder to suggest a significant obstruction or acute cholecystitis. Surgery was consulted and patient underwent a laparoscopic cholecystectomy with DR. Paulino-06/09. Following the lap felicia patient underwent an ERCP with sphincterotomy and stone extraction with GI on 06/10. Following the ERCP patient developed post ERCP pancreatitis as seen on CT imaging. She was started on IV fluids however her leukocytosis continued to worsen and patient remained symptomatic. Repeat CT showed acute pancreatitis with peripancreatic necrosis. Discussed CT findings with GI Dr. Inman, continue current antibiotic regimen and start patient on tube feeds via [place]. Consulted surgery who stated if there is concerns for infected pancreatitis then she needs to be transferred to a facility with hepatobiliary surgeons. Call made to [facility] transfer line. Spoke with Dr. Rivero, [facility] hepatobiliary plans to accept patient as a consult per [facility] hospitalist team. He states to place an NG tube and start tube feeds on patient. Continue antibiotics as prescribed. Dr. Han hospitalist accepting physician at [facility] hospital for priority transfer. Patient transferred to [facility] in a stable condition. Time Spent with Patient Time attestation: Total time spent providing and/or coordinating transfer services: Total time spent: Greater than 30 minutes Exam Narrative: AF HR 100 RR 14 Spo2 93 BP 118/83 General: female in no acute respiratory distress who is nontoxic appearing. HEENT: Normocephalic. Atraumatic. Extraocular movement intact. Sclera clear and anicteric. No facial asymmetry. Chest: Lungs are diminished to auscultation bilaterally to the lower bases. No wheezes. CV: Heart was regular rate and rhythm. S1-S2. No murmurs, gallops, or rubs. Abd: Abdomen slightly tender. Distended. Normal bowel sounds. No organomegaly or masses. Incisions are clean/dry/intact. Ext: No clubbing, cyanosis, or edema. 2+ DP pulses bilaterally. Neuro: Patient is alert and oriented x4. Cranial nerves 2-12 are intact. Speech is clear. DS: Data Data Completed and Pending Completed studies during hospitalization: Abdomen xR abdomen pelvis CT chest CTA abdomen xr chest xr chest xr abdomen/pelvis ct abdomen pelvis ct abdomen xr ERCP MRCP abdomen US chest XR abdomen/pelvis ct Pending studies at discharge: Pending at discharge 06/09/24 17:33 Surgical [PTH] Routine Labs on day of discharge: Labs from last 24 hours 06/18/24 06:03 WBC 27.0 H RBC 3.48 L Hgb 10.6 L Hct 31.4 L MCV 90.2 MCH 30.5 MCHC 33.8 RDW 13.6 Plt Count 284 MPV 9.0 Immature Gran % (Auto) 4.1 H Neut % (Auto) 91.5 H Lymph % (Auto) 2.0 L [place] % (Auto) 1.9 L Eos % (Auto) 0.5 Baso % (Auto) 0.0 L Lymph # (Auto) 0.53 L [place] # (Auto) 0.5 Eos # (Auto) 0.1 Baso # (Auto) 0.0 Abs Immat Gran (auto) 1.11 H Absolute Neuts (auto) 24.7 H Absolute Nucleated RBC 0.000 Nucleated RBC % 0.0 Platelet Estimate Adequate Hypochromasia 1+ Anisocytosis 1+ Schistocytes None seen Sodium 138 Potassium 3.0 L Chloride 108 H Carbon Dioxide 26 Anion Gap 4 BUN 12 D Creatinine 0.70 Estim Creat Clear Calc Not Reportable Estimated GFR > 60 Glucose 83 Calcium 8.0 L Total Bilirubin 1.7 H AST 37 H ALT 22 Alkaline Phosphatase 129 H Total Protein 5.0 L Albumin 2.2 L Preliminary micro results at discharge 06/15/24 02:09 Blood Culture - Preliminary Blood 06/15/24 02:09 Blood Culture - Preliminary Blood
--- OUTSIDE RECORDS SUMMARY | 2024-06-18 17:01 | XMS_ITS | Encounter Summary ---
Author Organization [facility] Address [address] [place] [address] Care Team Providers Care Clinical Sciences Professor Name Role Phone Basilia Gomez MD Primary Care Provider [phone] Encounter Details Date Type Department Care Team [...] documented as of this encounter Care Teams Clinical Sciences Professor Relationship Specialty Start Date End Date Basilia Gomez MD [address] [place], [place] [address] [place] [address] PCP - General Internal Medicine 12/13/23 documented as of this encounter
--- OUTSIDE RECORDS SUMMARY | 2024-06-18 17:01 | XMS_ITS | Encounter Summary ---
Author Organization [facility] Address [address] [place] [address] Care Team Providers Care Core Loader Name Role Phone Basilia Gomez MD Primary Care Provider [phone] Encounter Details Date Type Department Care Team [...] documented as of this encounter Care Teams Core Loader Relationship Specialty Start Date End Date Basilia Gomez MD [address] [place], [place] [address] [place] [address] PCP - General Internal Medicine 12/13/23 documented as of this encounter
--- OUTSIDE RECORDS SUMMARY | 2024-06-18 17:01 | XMS_ITS | Encounter Summary ---
Author Organization [facility] Address [address] [place] [address] Care Team Providers Care Pacs Specialist Name Role Phone Basilia Gomez MD Primary Care Provider [phone] Reason for Referral * Eval and Treat (Routine) - Open Specialty Diagnoses / Procedures Referred By Catracho aguilar Referred To Contact Gastroenterology Diagnoses Screening for colon cancer colon Procedures SD OFFICE/OUTPATIENT ESTABLISHED MOD MDM 30 MIN SD OFFICE/OUTPATIENT NEW MODERATE MDM 45 MINUTES colon Basilia Gomez MD [address] [place] [address] [facility] [address] [place] [address] Referral ID Status Reason Start Date Expiration Date Visits Requested Visits Authorized [id number] Open Performing Department to Schedule 03/31/2024 03/31/2025 1 1 Reason for Visit * Reason Comments Zepbound Follow Up Dizzy spells for 2-3 days after the last two injections Encounter Details Date Type Department Care Team (Late st Contact Info) Description 03/31/2024 9:00 AM CDT Office Visit [facility] at Work [employer] [place] [address] [place] [address] Basilia Gomez MD [address] [place] [address] Overweight (BMI 25.0-29.9) (Primary Dx); Mixed hyperlipidemia; Vitamin D deficiency; Need for utemmmvodw-llkbjrv-u ertussis (Tdap) vaccine; Screening for colon cancer [...] healthier snack to clench sweet tooth Riding Vontoo bike 3x week, sometimes 4 Zepbound- denies [...] by 1000 IU daily 4. Need for eudzvfhfgh-gvlaprq-ncnlvhexz (Tdap) vaccine Z23 V06.1 (ADACEL/BOOSTRIX)(10 YR UP) [...] deficiency Unspecified vitamin D deficiency Need for ucjebefgub-ccjpxws-taeurqwto (Tdap) vaccine Need for prophylactic vaccination with combined muvfbjbehj-fydfbrh-ppnzfkwem (DTP) vaccine Screening for colon cancer Special screening for malignant neoplasms, colon documented in this encounter Additional Health Concerns Assessment Noted Time PHQ-9 Depression Total Score: 3 01/22/20 24 2:00 PM CDT documented as of this encounter Care Teams Pacs Specialist Relationship Specialty Start Date End Date Basilia Gomez MD [address] [place] [address] PCP - General Internal Medicine 12/13/23 documented as of this encounter
--- OUTSIDE RECORDS SUMMARY | 2024-06-18 17:01 | XMS_ITS | Encounter Summary ---
Author Organization [employer] [facility] Address [address] [place] [address] Care Team Providers Care Managing Director Atlas Name Role Phone Soheila Romero MD Primary Care Provider [phone] Encounter Details Date Type Department Care Team (Late st Contact Info) Description 12/04/2023 Chart Note [facility] at Work [employer] [place] [address] [place] [address] Leandro Paul [address] [place] [address] Social History Tobacco Use Types [...] Leandro Paul - 12/08/2023 9:56 PM CDT [facility] Psychiatric Staffing Consult and Review The consulting psychiatrist and behavioral health care managers met on 12/04/23 for Rhonda. The [facility] team discussed Rhonda diagnosis, goals, progress being made, additional treatment options and any current issues. documented in this encounter Plan of Treatment Not on file documented as of this encounter Visit Diagnoses Not on filedocumented in this encounter Additional Health Concerns Assessment Noted Time PHQ-9 Depression Total Score: 2 11/15/19 24 1:00 PM CDT documented as of this encounter Care Teams Managing Director Atlas Relationship Specialty Start Date End Date Soheila Romero MD [address] [place] [address] PCP - General Family Practice 05/02/22 12/12/23 documented as of this encounter
--- OUTSIDE RECORDS SUMMARY | 2024-06-18 17:01 | XMS_ITS | Encounter Summary ---
Author Organization [facility] Address [address] [place] [address] Care Team Providers Care Take Out Waiter Name Role Phone Soheila Romero MD Primary Care Provider [phone] Reason for Visit * Reason Comments Depression Anxiety Encounter Details Date Type Department Care Team (Late st Contact Info) Description 11/05/2023 2:00 PM CDT Video Visit [facility] at Work [employer] [place] [address] [place] [address] Leandro Paul [address] [place] [address] Acute reaction to situational stress (Primary Dx) [...] her daughter is going to college in [place], and her car is not running well. [...] 3 PM by video Discuss with Psychiatric Skin Therapist? No This encounter was completed via two-way [...] documented as of this encounter Care Teams Take Out Waiter Relationship Specialty Start Date End Date Soheila Romero MD [address] [place] [address] PCP - General Family Practice 05/02/22 12/12/23 documented as of this encounter
--- OUTSIDE RECORDS SUMMARY | 2024-06-18 17:01 | XMS_ITS | Encounter Summary ---
Author Organization [facility] Address [address] [place] [address] Care Team Providers Care Vp Purchasing Name Role Phone Basilia Gomez MD Primary Care Provider [phone] Reason for Visit * Reason Comments Depression Anxiety Encounter Details Date Type Department Care Team (Late st Contact Info) Description 12/16/2023 2:30 PM CDT Video Visit [facility] at Work [employer] [place] [address] [place] [address] Leandro Paul [address] [place] [address] Acute reaction to situational stress (Primary [...] as of this encounter Progress Notes * Lenadro Paul - 12/16/2023 3:11 PM CDT Collaborative [...] 2:30 PM by video Discuss with Psychiatric Farm Product Purchaser? No This encounter was completed via two-way [...] documented as of this encounter Care Teams Vp Purchasing Relationship Specialty Start Date End Date Basilia Gomez MD [address] [place] [address] PCP - General Internal Medicine 12/13/23 documented as of this encounter
--- OUTSIDE RECORDS SUMMARY | 2024-06-18 17:01 | XMS_ITS | Encounter Summary ---
Author Organization [facility] Address [address] [place] [address] Care Team Providers Care Data Integrity Analyst Name Role Phone Basilia Gomez MD Primary Care Provider [phone] Encounter Details Date Type Department Care Team [...] as of this encounter Care Teams Data Integrity Analyst Relationship Specialty Start Date End Date Basilia Gomez MD [address] [place], [place] [address] [place] [address] PCP - General Internal Medicine 12/13/23 documented as of this encounter
--- OUTSIDE RECORDS SUMMARY | 2024-06-18 17:01 | XMS_ITS | Encounter Summary ---
Author Organization [facility] Address [address] [place] [address] Care Team Providers Care Math Specialist Name Role Phone Soheila Romero MD Primary Care Provider [phone] Reason for Visit * Reason Onset Date Comments Medication Review 11/15/2023 Encounter Details Date Type Department Care Team (Late st Contact Info) Description 11/15/2023 Telephone [facility] at Work [employer] [place] [address] [place] [address] Basilia Gomez MD [address] [place] [address] Medication Review Social History Tobacco [...] Phillips RN - 11/15/2023 1:54 PM CDT [facility] pharmacy called requesting clarification on pt's wegovy [...] documented as of this encounter Care Teams Math Specialist Relationship Specialty Start Date End Date Soheila Romero MD [address] [place] [address] PCP - General Family Practice 05/02/22 12/12/23 documented as of this encounter
--- OUTSIDE RECORDS SUMMARY | 2024-06-18 17:01 | XMS_ITS | Encounter Summary ---
Author Organization [facility] Address [address] [place] [address] Care Team Providers Care Patternmaker Apprentice Metal Name Role Phone Basilia Gomez MD Primary Care Provider [phone] Encounter Details Date Type Department Care Team [...] documented as of this encounter Care Teams Patternmaker Apprentice Metal Relationship Specialty Start Date End Date Basilia Gomez MD [address] [place], [place] [address] [place] [address] PCP - General Internal Medicine 12/13/23 documented as of this encounter
--- OUTSIDE RECORDS SUMMARY | 2024-06-18 17:01 | XMS_ITS | Encounter Summary ---
Author Organization [employer] Address [address] [place] [address] Care Team Providers Care Carpet Winder Name Role Phone Soheila Romero MD Primary Care Provider [phone] Reason for Visit * Reason Onset Date Comments [employer] [place] Appt 12/05/2023 2nd contact to mindi valera cancelled appointment. Left message. Encounter Details Date Type Department Care Team (Late st Contact Info) Description 12/05/[address] [facility] at Work [employer] [place] [address] [place] [address] Leandro Paul [address] [place] [address] [employer] [place] Appt (2nd contact [...] documented as of this encounter Care Teams Carpet Winder Relationship Specialty Start Date End Date Soheila Romero MD [address] [place] [address] PCP - General Family Practice 05/02/22 12/12/23 documented as of this encounter
--- OUTSIDE RECORDS SUMMARY | 2024-06-18 17:01 | XMS_ITS | Encounter Summary ---
Author Organization [employer] Address [address] [place] [address] Care Team Providers Care Podiatric Technician Name Role Phone Basilia Gomez MD Primary Care Provider [phone] Reason for Visit * Reason Onset Date Comments [facility] [place] Appt 03/30/2024 2nd contact to r maryule missed appointment. Left message. Encounter Details Date Type Department Care Team (Late st Contact Info) Description 03/30/2024 Telephone [facility] at Work [employer] [place] [address] [address] Leandro Paul [address] [place] [address] [employer] [place] Appt (2nd contact to [...] documented as of this encounter Care Teams Podiatric Technician Relationship Specialty Start Date End Date Basilia Gomez MD [address] [place] [address] PCP - General Internal Medicine 12/13/23 documented as of this encounter
--- OUTSIDE RECORDS SUMMARY | 2024-06-18 17:01 | XMS_ITS | Encounter Summary ---
Author Organization [facility] Address [address] [place] [address] Care Team Providers Care Senior Technical Support Engineer Name Role Phone Basilia Gomez MD Primary Care Provider [phone] Reason for Visit * Reason Comments mood Weight Check 4 wk fu Encounter Details Date Type Department Care Team ([facility] st Contact Info) Description 01/10/2024 8:00 AM CDT Office Visit [facility] at Work [employer] [place] [address] [place] [address] Basilia Gomez MD [address] [address] Obesity (BMI 30.0-34.9) (Primary Dx); [...] LDL-C. Daniel SS et al. HENNY. 2013;310(19): 6105-3332 (http://education.MedHOK/faq/HXY797) CHOL/HDL RATIO 4.1 <5.0 (calc) [facility] NON-HDL CHOLESTEROL 119 <130 mg/dL (calc) [facility] Comment: For patients with diabetes plus 1 major ASCVD risk factor, treating to a non-HDL-C goal of <100 mg/dL (LDL-C of <70 mg/dL) is considered a therapeutic option. Test Performed at: [facility] [address] [facility] [place] ??[phone] Kenny Arana MD Blood 02/07/2024 9:06 AM CDT 02/08/2024 5:51 AM CDT Basilia Gomez MD CHEMISTRY ORDERABLES [facility] [phone] [facility] [address] [place] [address] * (ABNORMAL) VITAMIN D 25 HYDROXY (02/07/2024 9:06 AM CDT) VITAMIN D, 25 OH, TOTAL 29(L) 30 - 100 ng/mL [facility] Comment: Vitamin D Status ? 25-OH Vitamin D: Deficiency: ?<20 ng/mL Insufficiency: ? 20 - 29 ng/mL Optimal: ? > or = 30 ng/mL For 25-OH Vitamin D testing on patients on D2-supplementation and patients for whom quantitation of D2 and D3 fractions is required, the [facility](TM) 25-OH VIT D, (D2,D3), LC/MS/MS is recommended: order code 09040 (patients >2yrs). See Note 1 Note 1 For additional information, please refer to http://education.MedHOK/faq/VFJ421 (This link is being provided for informational/ educational purposes only.) Test Performed at: [facility] [address] [place] ??[phone] Kenny Arana MD Blood 02/07/2024 9:06 AM CDT 02/08/2024 5:52 AM CDT Basilia Gomez MD CHEMISTRY ORDERABLES [facility] [phone] [facility] [address] [place] [address] documented in this encounter Visit Diagnoses Diagnosis Obesity (BMI 30.0-34.9)- Primary Obesity, unspecified Hyperlipidemia, unspecified hyperlipidemia type Vitamin D deficiency Unspecified vitamin D deficiency Mild depression Depressive disorder, not elsewhere classified documented in this encounter Additional Health Concerns Assessment Noted Time PHQ-9 Depression Total Score: 3 12/13/19 24 9:00 AM CDT documented as of this encounter Care Teams Senior Technical Support Engineer Relationship Specialty Start Date End Date Basilia Gomez MD [address] [place] [address] PCP - General Internal Medicine 12/13/23 documented as of this encounter
--- OUTSIDE RECORDS SUMMARY | 2024-06-18 17:01 | XMS_ITS | Encounter Summary ---
Author Organization [facility] [facility] Address [address] [place] [address] Care Team Providers Care Lab Clerk Name Role Phone Soheila Romero MD Primary Care Provider [phone] Reason for Referral * Radiology Services (Routine) - Open Specialty Diagnoses / Procedures Referred By Contac t Referred To Contact Diagnoses Breast cancer screening by mammogram Procedures MAMMO 3D CHU SCREEN BILAT W OR WO CAD CHG SCREENING MAMMOGRAPHY BI 2-VIEW BREAST INC CAD CHG SCREENING DIGITAL BREAST TOMOSYNTHESIS BI Kay Gomez MD [address] [place] [address] Referral ID Status Reason Start Date Expiration Date Visits Re quested Visits Authorized [id number] Open 11/15/2023 12/15/2024 1 1 Reason for [...] Description 11/15/2023 1:00 PM CDT Office Visit [facility] at Work [employer] [place] [address] [place] [address] Kay Gomez MD [address] [place] [address] Severe obesity (BMI 35.0-39.9) with [...] documented as of this encounter Care Teams Lab Clerk Relationship Specialty Start Date End Date Soheila Romero MD [address] [place] [phone] PCP - General Family Practice 05/02/22 12/12/23 documented as of this encounter
--- OUTSIDE RECORDS SUMMARY | 2024-06-18 17:01 | XMS_ITS | Encounter Summary ---
Author Organization [facility] Address [address] [place] [address] Care Team Providers Care Book Reviewer Name Role Phone Basilia Gomez MD Primary Care Provider [phone] Reason for Referral * Radiology Services (Routine) - Open Specialty Diagnoses / Procedures Referred By Catracho aguilar Referred To Contact Diagnoses Abnormal mammogram of left breast Procedures MAMMO DIAGNOSTIC UNI LEFT W OR WO CAD Basilia Gomez MD [address] [place] [address] Referral ID Status Reason Start Date Expiration Date Visits Re quested Visits Authorized [id number] Open 01/09/2024 02/08/2025 1 1 Reason for Visit * Reason Onset Date Comments order request 01/09/2024 Encounter Details Date Type Department Care Team (Late st Contact Info) Description 01/09/2024 Telephone [facility] [employer] [place] [address] [facility] [place] [address] Basilia Gomez MD [address] [place] [address] order request Social History Tobacco [...] Telephone Encounter - Shira Anguiano - 01/09/2024 1:23 PM CDT Printed order and faxed over to [facility]. * Telephone Encounter - Basilia Gomez MD - 01/09/2024 1:22 PM CDT ordered * Telephone Encounter - Shira Anguiano - 01/09/2024 1:13 PM CDT [facility] imaging center contacting us needing us to [...] documented as of this encounter Care Teams Book Reviewer Relationship Specialty Start Date End Date Basilia Gomez MD [address] [place] [address] [place] [address] PCP - General Internal Medicine 12/13/23 documented as of this encounter
--- OUTSIDE RECORDS SUMMARY | 2024-06-18 17:01 | XMS_ITS | Encounter Summary ---
Author Organization [facility] Address [address] [place] [address] Care Team Providers Care Supervisor Mixing Name Role Phone Basilia Gomez MD Primary Care Provider [phone] Encounter Details Date Type Department Care Team (Late st Contact Info) Description 12/23/2023 Orders Only [facility] at Work [employer] [place] [address] [place] [address] Shira Anguiano Abnormal mammogram of [...] documented as of this encounter Care Teams Supervisor Mixing Relationship Specialty Start Date End Date Basilia Gomez MD [address] [place] [address] PCP - General Internal Medicine 12/13/23 documented as of this encounter
--- OUTSIDE RECORDS SUMMARY | 2024-06-18 17:01 | XMS_ITS | Encounter Summary ---
Author Organization [facility] Address [address] [place] [address] Care Team Providers Care Lining Feller Blindstitch Name Role Phone Basilia Gomez MD Primary Care Provider [phone] Encounter Details Date Type Department Care Team [...] documented as of this encounter Care Teams Lining Feller Blindstitch Relationship Specialty Start Date End Date Basilia Gomez MD [address] [place], [place] [address] [place] [address] PCP - General Internal Medicine 12/13/23 documented as of this encounter
--- OUTSIDE RECORDS SUMMARY | 2024-06-18 17:01 | XMS_ITS | Encounter Summary ---
Author Organization [facility] Address [address] [place] [address] Care Team Providers Care Revenue Liaison Name Role Phone Basilia Gomez MD Primary Care Provider [phone] Encounter Details Date Type Department Care Team (Late st Contact Info) Description 04/12/2024 Chart Note [facility] at Work [employer] [place] [address] [place] [address] Leandro Paul [address] [place] [address] Social History Tobacco Use Types [...] documented as of this encounter Care Teams Revenue Liaison Relationship Specialty Start Date End Date Basilia Gomez MD [address] [place] [address] PCP - General Internal Medicine 12/13/23 documented as of this encounter
--- OUTSIDE RECORDS SUMMARY | 2024-06-18 17:01 | XMS_ITS | Encounter Summary ---
Author Organization [facility] Address [address] [place] [address] Care Team Providers Care Tractor Technician Name Role Phone Basilia Gomez MD Primary Care Provider [phone] Reason for Visit * Reason Comments Depression Anxiety Encounter Details Date Type Department Care Team (Late st Contact Info) Description 01/22/2024 2:00 PM CDT Video Visit [facility] at Work [employer] [place] [address] [place] [address] Leandro Paul [address] [place] [address] Acute reaction to situational stress (Primary [...] 2:30 PM by video Discuss with Psychiatric Asset Liability Analyst? No This encounter was completed via two-way [...] documented as of this encounter Care Teams Tractor Technician Relationship Specialty Start Date End Date Basilia Gomez MD [address] [place] [address] PCP - General Internal Medicine 12/13/23 documented as of this encounter
--- OUTSIDE RECORDS SUMMARY | 2024-06-18 17:01 | XMS_ITS | Encounter Summary ---
Author Organization [employer] [facility] Address [address] [place] [address] Care Team Providers Care Manager Cable Name Role Phone Basilia Gomez MD Primary Care Provider [phone] Encounter Details Date Type Department Care Team (Late st Contact Info) Description 01/13/2024 Orders Only [facility] at Work [employer] [place] [address] [place] [address] Shira Anguiano Abnormal mammogram of [...] as of this encounter Care Teams Manager Cable Relationship Specialty Start Date End Date Basilia Gomez MD [address] [place] [address] PCP - General Internal Medicine 12/13/23 documented as of this encounter
--- OUTSIDE RECORDS SUMMARY | 2024-06-18 17:01 | XMS_ITS | Encounter Summary ---
Author Organization [employer] Address [address] [place] [address] Care Team Providers Care Speech Therapy Director Name Role Phone Soheila Romero MD Primary Care Provider [phone] Reason for Visit * Reason Onset Date Comments [employer] [place] Appt 12/02/2023 1st contact to r soto cancelled appointment. Left message. Encounter Details Date Type Department Care Team (Late st Contact Info) Description 12/02/2023 Telephone [facility] at Work [employer] [place] [address] [place] [address] Leandro Paul [address] [place] [address] [employer] [place] Appt (1st contact [...] documented as of this encounter Care Teams Speech Therapy Director Relationship Specialty Start Date End Date Soheila Romero MD [address] [place] [address] PCP - General Family Practice 05/02/22 12/12/23 documented as of this encounter
--- OUTSIDE RECORDS SUMMARY | 2024-06-18 17:01 | XMS_ITS | Encounter Summary ---
Author Organization [facility] Address [address] [place] [address] Care Team Providers Care Industrial Gas Service Helper Name Role Phone Basilia Gomez MD Primary Care Provider [phone] Reason for Visit * Reason Onset Date Comments [facility] [place] Appt 04/07/2024 3rd contact to r escrachaelule appointment. Left message. Encounter Details Date Type Department Care Team ([facility] st Contact Info) Description 04/07/2024 Telephone [facility] Work [employer] [place] [address] [place] [address] Leandro Paul [address] [place] [address] [employer] [place] Appt (3rd contact to [...] documented as of this encounter Care Teams Industrial Gas Service Helper Relationship Specialty Start Date End Date Basilia Gomez MD [address] [place] [address] PCP - General Internal Medicine 12/13/23 documented as of this encounter
--- OUTSIDE RECORDS SUMMARY | 2024-06-18 17:01 | XMS_ITS | Encounter Summary ---
Author Organization [facility] Address [address] [place] [address] Care Team Providers Care Linoleum Printer Name Role Phone Basilia Gomez MD Primary Care Provider [phone] Reason for Visit * Reason Comments Weight Check Patient is here to d iscuss medication for weight loss. Encounter Details Date Type Department Care Team (Late st Contact Info) Description 02/07/2024 8:30 AM CDT Office Visit [facility] [employer] [place] [address] [address] Basilia Gomez MD [address] [place] [address] Obesity (BMI 30.0-34.9) (Primary Dx); [...] 02/10/2024 2:40 PM CDT Pt read online Vsnap message on vitamin d result. documented in this encounter Plan of Treatment Not on file documented as of this encounter Procedures Procedure Name Priority Date/Time Associated Diagnosis Comments VITAMIN D 25 HYDROXY Routine 02/07/2024 9:06 AM CDT LIPID PANEL Routine 02/07/2024 9:06 AM CDT Hyperlipidemia, unspecified hyperlipidemia type documented in this encounter Results * (ABNORMAL) VITAMIN D 25 HYDROXY (02/07/2024 9:06 AM CDT) [facility] VITAMIN D, 25 OH, TOTAL 29(L) 30 - 100 ng/mL [facility] Comment: Vitamin D Status ? 25-OH Vitamin D: Deficiency: ?<20 ng/mL Insufficiency: ? 20 - 29 ng/mL Optimal: ? > or = 30 ng/mL For 25-OH Vitamin D testing on patients on D2-supplementation and patients for whom quantitation of D2 and D3 fractions is required, the [facility](TM) 25-OH VIT D, (D2,D3), LC/MS/MS is recommended: order code 32080 (patients >2yrs). See Note 1 Note 1 For additional information, please refer to http://Sharypic.Ventrix/faq/QSS595 (This link is being provided for informational/ educational purposes only.) Test Performed at: [facility] [address] [place], [place] ??[address] Kenny Arana MD Blood 02/07/2024 9:06 AM CDT 02/08/2024 5:52 AM CDT Basilia Gomez MD CHEMISTRY ORDERABLES [facility] [phone] [facility] [address] [place] [address] * (ABNORMAL) LIPID PANEL (02/07/2024 9:06 AM CDT) CHOLESTEROL 158 <200 mg/dL [facility] HDL 39(L) > OR = 50 mg/dL [facility] TRIGLYCERIDE 102 <150 mg/dL [facility] LDL CALCULATED 99 mg/dL (calc) [facility] Comment: Reference range: <100 Desirable [...] LDL-C. Daniel SS et al. HENNY. 2013;310(19): 5551-8998 (http://education.Wellbe.sageCrowd/faq/RRD135) CHOL/HDL RATIO 4.1 <5.0 (calc) [facility] NON-HDL CHOLESTEROL 119 <130 mg/dL (calc) [facility] Comment: For patients with diabetes plus 1 major ASCVD risk factor, treating to a non-HDL-C goal of <100 mg/dL (LDL-C of <70 mg/dL) is considered a therapeutic option. Test Performed at: [facility] [address] [place], [place] ??[address] Kenny Arana MD Blood 02/07/2024 9:06 AM CDT 02/08/2024 5:51 AM CDT Basilia Gomez MD CHEMISTRY ORDERABLES [facility] [phone] [facility] [address] [place] [address] documented in this encounter Visit Diagnoses Diagnosis Obesity (BMI 30.0-34.9)- Primary Obesity, unspecified Hyperlipidemia, unspecified hyperlipidemia type Constipation, unspecified constipation type documented in this encounter Additional Health Concerns Assessment Noted Time PHQ-9 Depression Total Score: 3 01/22/20 24 2:00 PM CDT documented as of this encounter Care Teams Linoleum Printer Relationship Specialty Start Date End Date Basilia Gomez MD [address] [place] [address] [place] [address] PCP - General Internal Medicine 12/13/23 documented as of this encounter
--- OUTSIDE RECORDS SUMMARY | 2024-06-18 17:01 | XMS_ITS | Encounter Summary ---
Author Organization [facility] Address [address] [place] [address] Care Team Providers Care Vamp Seamer Name Role Phone Soheila Romero MD Primary Care Provider [phone] Reason for Visit * Reason Comments Zepbound follow up Patient hasn't been able to get her prescription. Moods follow up Patient states with medication issues stress is not better. Encounter Details Date Type Department Care Team (Late st Contact Info) Description 10/17/2023 10:00 AM CDT Office Visit [facility] Work [employer] [place] [address] [place] [address] Sravani Serrato, DNP [address] [place] [address] Severe obesity (BMI 35.0-39.9) with [...] zepbound f/u. She hasn't been able to pick out hand the medication for the last month - [...] Follow up as indicated. Sravani Serrato DNP [facility] [email or web address] [place] [address] [place] [address] This note may have been transcribed using 51edu speaking computerized voice recognition without a human shipping order clerk. This report may or may not have [...] documented as of this encounter Care Teams Vamp Seamer Relationship Specialty Start Date End Date Soheila Romero MD [address] [place] [address] PCP - General Family Practice 05/02/22 12/12/23 documented as of this encounter
--- OUTSIDE RECORDS SUMMARY | 2024-06-18 17:01 | XMS_ITS | Encounter Summary ---
Author Organization [facility] Address [address] [place] [address] Care Team Providers Care Doormaker Name Role Phone Basilia Gomez MD Primary Care Provider [phone] Encounter Details Date Type Department Care Team [...] documented as of this encounter Care Teams Doormaker Relationship Specialty Start Date End Date Basilia Gomez MD [address] [place], [place] [address] [place] [address] PCP - General Internal Medicine 12/13/23 documented as of this encounter
--- OUTSIDE RECORDS SUMMARY | 2024-06-18 17:01 | XMS_ITS | Encounter Summary ---
Author Organization [employer] [facility] Address [address] [place] [address] Care Team Providers Care Paper Products Machine Operator Name Role Phone Soheila Romero MD Primary Care Provider [phone] Encounter Details Date Type Department Care Team (Late st Contact Info) Description 11/01/2023 Chart Note [facility] at Work [employer] [place] [address] [place] [address] Leandro Paul [address] [place] [address] Social History Tobacco Use Types [...] Leandro Paul - 11/04/2023 3:13 PM CDT [facility] Psychiatric Staffing Consult and Review The consulting psychiatrist and behavioral health care managers met on 11/04/2023 for Rhonda. [facility] Rhonda diagnosis, goals, progress being made, additional treatment options and any current issues. documented in this encounter Plan of Treatment Not on file documented as of this encounter Visit Diagnoses Not on filedocumented in this encounter Additional Health Concerns Assessment Noted Time PHQ-9 Depression Total Score: 4 10/17/19 24 10:00 AM CDT documented as of this encounter Care Teams Paper Products Machine Operator Relationship Specialty Start Date End Date Soheila Romero MD [address] [place] [address] PCP - General Family Practice 05/02/22 12/12/23 documented as of this encounter
--- OUTSIDE RECORDS SUMMARY | 2024-06-18 17:01 | XMS_ITS | Encounter Summary ---
Author Organization [employer] Address [address] [place] [address] Care Team Providers Care Safety Coordinator Name Role Phone Basilia Gomez MD Primary Care Provider Reason for Visit * Reason Onset Date Comments CoCM [place] Appt 02/28/2024 1st contact to r maryule missed appointment. Left message. Encounter Details Date Type Department Care Team (Late st Contact Info) Description 02/28/2024 Telephone [facility] at Work [employer] [place] [address] [place] [address] Leandro Paul [address] [place] [address] Co[employer] [place] Appt (1st contact to [...] documented as of this encounter Care Teams Safety Coordinator Relationship Specialty Start Date End Date Basilia Gomez MD [address] [place] [address] PCP - General Internal Medicine 12/13/23 documented as of this encounter
--- OUTSIDE RECORDS SUMMARY | 2024-06-18 17:01 | XMS_ITS | Encounter Summary ---
Author Organization [facility] Address [address] [place] [address] Care Team Providers Care Radiology Tech Name Role Phone Basilia Gomez MD Primary Care Provider [phone] Reason for Referral * Eval and Treat (Routine) - Closed Specialty Diagnoses / Procedures Referred By Catracho aguilar Referred To Contact Gastroenterology Diagnoses Screening for colon cancer Procedures CO OFFICE/OUTPATIENT ESTABLISHED MOD MDM 30 MIN CO OFFICE/OUTPATIENT NEW MODERATE MDM 45 MINUTES colon Basilia Gomez MD [address] [place] [address] [facility] [address] [place] [address] Referral ID Status Reason Start Date Expiration Date Visits Requested Visits Authorized [id number] Closed Performing Department to Schedule 03/05/2024 03/05/2025 1 1 Reason for Visit * Reason Comments Weight Loss Zepbound Follow Up Encounter Details Date Type Department Care Team (Late st Contact Info) Description 03/05/2024 9:00 AM CDT Office Visit [facility] at Work [employer] [place] [address] [place] [place] [address] Basilia Gomez MD [address] [place] [address] Overweight (Primary Dx); Mixed hyperlipidemia; Screening for colon cancer; Need for rkajhagkkz-zbmpadg-r ertussis (Tdap) vaccine Social History Tobacco Use [...] AMB REFERRAL TO GASTROENTEROLOGY 4. Need for odnorncjvr-qnwajou-vszwjfdsf (Tdap) vaccine Z23 V06.1 Will obtain next [...] screening for malignant neoplasms, colon Need for hcsasrvitm-drcgaat-kmtrazvtz (Tdap) vaccine Need for prophylactic vaccination with combined rbjrlblnpt-ptcfufg-igsbxouui (DTP) vaccine documented in this encounter Additional Health Concerns Assessment Noted Time PHQ-9 Depression Total Score: 3 01/22/20 24 2:00 PM CDT documented as of this encounter Care Teams Radiology Tech Relationship Specialty Start Date End Date Basilia Gomez MD [address] [place] [phone] PCP - General Internal Medicine 12/13/23 documented as of this encounter
--- OUTSIDE RECORDS SUMMARY | 2024-06-18 17:01 | XMS_ITS | Encounter Summary ---
Author Organization [facility] Address [address] [place] [address] Care Team Providers Care Peanut Vendor Name Role Phone Basilia Gomez MD Primary Care Provider [phone] Encounter Details Date Type Department Care Team [...] documented as of this encounter Care Teams Peanut Vendor Relationship Specialty Start Date End Date Basilia Gomez MD [address] [place], [place] [address] [place] [address] PCP - General Internal Medicine 12/13/23 documented as of this encounter
--- OUTSIDE RECORDS SUMMARY | 2024-06-18 17:01 | XMS_ITS | Clinical Summary ---
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 Resolved Problems Problem Noted Date Diagnosed Date Resolved Date Weight gain 02/05/2019 09/19/2023 Edema 12/28/2015 05/02/2022 Encounters Date Type Department Care Team Description 05/26/2024 External Device Data STL ABSTRACTION Provider, Abstract 04/28/2024 External Device Data STL ABSTRACTION Provider, Abstract 04/12/2024 Chart Note [facility] at Work [employer] [facility] [address] [place] [address] Leandro Paul 04/07/2024 Telephone [facility] at Work [facility] [employer] [facility] [address] [place] [address] Leandro Paul CoCM [place] Appt (3rd contact to reschedule appointment. Left message.) 03/31/2024 9:00 AM CDT Office [facility] [place] [address] [place] [address] Basilia Gomez MD Overweight (BMI 25.0-29.9) (Primary Dx); Mixed hyperlipidemia; Vitamin D deficiency; Need for diphtheria-tetanus- pertussis (Tdap) vaccine; Screening for colon cancer 03/30/2024 Telephone [facility] [place] [address] [place] [address] Leandro Paul CoCM [place] Appt [...] mammogram HEMOGLOBIN A1C Routine 05/02/2022 2:04 PM LEVEL VIAL SETTER Nephrotic syndrome from Last 3 Months or Most Recently Relevant to Health Maintenance Results * MAMMO 3D CHU SCREEN BILAT W OR WO CAD (12/20/2023) Anatomical Region Laterality Modality Breast Bilateral Other Basilia Gomez MD MAMMO ORDERABLES * HEMOGLOBIN A1C (05/02/2022 2:04 PM LEVEL VIAL SETTER) HEMOGLOBIN A1C 4.4 <5.7 % of total [...] diagnosis of diabetes in children. According to [place] Diabetes Association (ADA) guidelines, hemoglobin A1c <7.0% represents optimal control in non- diabetic patients. Different metrics may apply to specific patient populations. Standards of Medical Care in Diabetes(ADA). ?? ESTIMATED AVERAGE GLUCOSE (MG/DL) 80 mg/dL [facility] ESTIMATED AVERAGE GLUCOSE (MMOL/L) 4.4 mmol/L [facility] Comment: Test Performed at: [facility] [address] [place], [place] ??[address] Bernardo Augustin D.O., MPH Blood 05/02/2022 2:04 PM LEVEL VIAL SETTER 05/03/2022 6:29 AM LEVEL VIAL SETTER Soheila Romero MD CHEMISTRY ORDERABLES [facility] [phone] [facility] [address] [place] [address] from Last 3 Months or Most Recently Relevant to Health Maintenance Care Teams Public Information Director Relationship Specialty Start Date End Date Basilia Gomez MD [address] [place] [address] PCP - General Internal Medicine 12/13/23
--- OUTSIDE RECORDS SUMMARY | 2024-06-18 17:01 | XMS_ITS | Encounter Summary ---
Author Organization [employer] Address [address] [place] [address] Care Team Providers Care Small Animal Veterinarian Name Role Phone Basilia Gomez MD Primary Care Provider [phone] Reason for Visit * Reason Onset Date Comments order request 12/24/2023 Encounter Details Date Type Department Care Team (Late st Contact Info) Description 12/24/[address] [facility] at Work [employer] [place] [address] [place] [address] Basilia Gomez MD [address] [place] [address] order request Social History Tobacco [...] 1:19 PM CDT Received a call from [facility]iology [facility], requesting for us to fix the order on the mammogram that was ordered. They would like us to send a new order over. Diagnostic mammogram Left side with ultrasound. We can fax this new order over to [phone] documented in this encounter Plan of Treatment Not on file documented as of this encounter Visit Diagnoses Not on filedocumented in this encounter Additional Health Concerns Assessment Noted Time PHQ-9 Depression Total Score: 3 12/13/19 24 9:00 AM CDT documented as of this encounter Care Teams Small Animal Veterinarian Relationship Specialty Start Date End Date Basilia Gomez MD [address] [place] [address] PCP - General Internal Medicine 12/13/23 documented as of this encounter
--- OUTSIDE RECORDS SUMMARY | 2024-06-18 17:01 | XMS_ITS | Encounter Summary ---
Author Organization [facility] Address [address] [place] [address] Care Team Providers Care Global Security Architect Name Role Phone Basilia Gomez MD Primary Care Provider [phone] Encounter Details Date Type Department Care Team [...] documented as of this encounter Care Teams Global Security Architect Relationship Specialty Start Date End Date Basilia Gomez MD [address] [place], [place] [address] [place] [address] PCP - General Internal Medicine 12/13/23 documented as of this encounter
--- OUTSIDE RECORDS SUMMARY | 2024-06-18 17:01 | XMS_ITS | Encounter Summary ---
Author Organization [facility] Address [address] [place] [address] Care Team Providers Care Sports Management Internship Name Role Phone Basilia Gomez MD Primary Care Provider [phone] Reason for Visit * Reason Comments wegovy medication moods Encounter Details Date Type Department Care Team (Late st Contact Info) Description 12/13/2023 8:30 AM CDT Office Visit [facility] at Work [employer] [place] [address] [place] [address] Basilia Gomez MD [address] [place] [address] Obesity (BMI 30.0-34.9) (Primary Dx); [...] spends a lot of time in the [employer] . Hard to be around so meone [...] documented as of this encounter Care Teams Sports Management Internship Relationship Specialty Start Date End Date Basilia Gomez MD [address] [place] [address] [place] [address] PCP - General Internal Medicine 12/13/23 documented as of this encounter
--- OUTSIDE RECORDS SUMMARY | 2024-06-18 17:01 | XMS_ITS | Encounter Summary ---
Author Organization [facility] Address [address] [place] [address] Care Team Providers Care Navy Fighter Pilot Name Role Phone Basilia Gomez MD Primary Care Provider [phone] Encounter Details Date Type Department Care Team (Late st Contact Info) Description 01/24/2024 Chart Note [facility] at Work [employer] [place] [address] [place] [address] Leandro Paul [address] [place] [address] Social History Tobacco Use Types [...] Leandro Paul - 01/27/2024 3:05 PM CDT [facility] Psychiatric Staffing Consult and Review The consulting psychiatrist and behavioral health care managers met on 01/24/2024 for Rhonda. [facility]onda diagnosis, goals, progress being made, additional treatment options and any current issues. documented in this encounter Plan of Treatment Not on file documented as of this encounter Visit Diagnoses Not on filedocumented in this encounter Additional Health Concerns Assessment Noted Time PHQ-9 Depression Total Score: 3 01/22/20 24 2:00 PM CDT documented as of this encounter Care Teams Navy Fighter Pilot Relationship Specialty Start Date End Date Basilia Gomez MD [address] [place] [address] PCP - General Internal Medicine 12/13/23 documented as of this encounter
--- OUTSIDE RECORDS SUMMARY | 2024-06-18 17:01 | XMS_ITS | Encounter Summary ---
Author Organization [facility] Address [address] [place] [address] Care Team Providers Care Parcel Post Delivery Name Role Phone Basilia Gomez MD Primary Care Provider [phone] Reason for Visit * Reason Comments Depression Anxiety Encounter Details Date Type Department Care Team (Late st Contact Info) Description 02/05/2024 2:30 PM CDT Video Visit [facility] at Work [employer] [place] [address] [address] Leandro Paul [address] [place] [address] Acute reaction to situational stress (Primary [...] 3 PM by video Discuss with Psychiatric Journal Clerk? No This encounter was completed via two-way [...] documented as of this encounter Care Teams Parcel Post Delivery Relationship Specialty Start Date End Date Basilia Gomez MD [address] [place] [address] PCP - General Internal Medicine 12/13/23 documented as of this encounter
--- OUTSIDE RECORDS SUMMARY | 2024-06-18 17:01 | XMS_ITS | Encounter Summary ---
Author Organization [employer] Address [address] [place] [address] Care Team Providers Care Distillery Supervisor Name Role Phone Basilia Gomez MD Primary Care Provider [phone] Reason for Visit * Reason Comments Med Change Request Encounter Details Date Type Department Care Team ([facility] st Contact Info) Description 01/10/2024 Refill [facility] at Work [employer] [address] [place] [address] Basilia Gomez MD [address] [place] [address] Obesity (BMI 30.0-34.9) Social History [...] documented as of this encounter Care Teams Distillery Supervisor Relationship Specialty Start Date End Date Basilia Gomez MD [address] [place] [address] PCP - General Internal Medicine 12/13/23 documented as of this encounter
--- OUTSIDE RECORDS SUMMARY | 2024-06-18 17:01 | XMS_ITS | Encounter Summary ---
Author Organization [facility] [facility] Address [address] [place] [address] Care Team Providers Care Community Recreation Coordinator Name Role Phone Soheila Romero MD Primary Care Provider [phone] Reason for Visit * Reason Onset Date Comments Appointment Correction 12/02/2023 Encounter Details Date Type Department Care Team (Late st Contact Info) Description 12/02/2023 Telephone [facility] at Work [employer] [place] [address] [place] [address] Leandro Paul [address] [place] [address] Appointment Correction Social History Tobacco [...] documented as of this encounter Care Teams Community Recreation Coordinator Relationship Specialty Start Date End Date Soheila Romero MD [address] [place] [address] PCP - General Family Practice 05/02/22 12/12/23 documented as of this encounter
--- OUTSIDE RECORDS SUMMARY | 2024-06-18 17:01 | XMS_ITS | Encounter Summary ---
Author Organization [facility] Address [address] [place] [address] Care Team Providers Care Senior Recruitment Consultant Name Role Phone Basilia Gomez MD Primary Care Provider [phone] Encounter Details Date Type Department Care Team [...] as of this encounter Care Teams Senior Recruitment Consultant Relationship Specialty Start Date End Date Basilia Gomez MD [address] [place], [place] [address] [place] [address] PCP - General Internal Medicine 12/13/23 documented as of this encounter
--- OUTSIDE RECORDS SUMMARY | 2024-06-18 17:01 | XMS_ITS | Encounter Summary ---
Author Organization [employer] Address [address] [place] [address] Care Team Providers Care Medical Data Entry Clerk Name Role Phone Basilia Gomez MD Primary Care Provider [phone] Encounter Details Date Type Department Care Team (Late st Contact Info) Description 12/20/2023 Orders Only [facility] at Work [employer] [place] [address] [place] [address] Diallo Mahmood Breast cancer screening [...] CDT Pt reviewed her results using the Compliance Control portal. documented in this encounter Plan of [...] documented as of this encounter Care Teams Medical Data Entry Clerk Relationship Specialty Start Date End Date Basilia Gomez MD [address] [place] [address] PCP - General Internal Medicine 12/13/23 documented as of this encounter
--- OUTSIDE RECORDS SUMMARY | 2024-06-18 17:01 | XMS_ITS | Encounter Summary ---
Author Organization [facility] Address [address] [place] [address] Care Team Providers Care Tractor Trailer Moving Van Driver Name Role Phone Basilia Gomez MD Primary Care Provider [phone] Reason for Referral * Radiology Services (Routine) - Open Specialty Diagnoses / Procedures Referred By Catracho aguilar Referred To Contact Diagnoses Abnormal mammogram of left breast Procedures MAMMO BREAST US LT COMPLETE Basilia Gomez MD [address] [place] [address] Referral ID Status Reason Start Date Expiration Date Visits Re quested Visits Authorized [id number] Open 12/20/2023 01/19/2025 1 1 * Radiology Services (Routine) - Open Specialty Diagnoses / Procedures Referred By Catracho aguilar Referred To Contact Diagnoses Abnormal mammogram of left breast Procedures MAMMO DIAGNOSTIC UNI LEFT W OR WO CAD Basilia Gomez MD [address] [place] [address] Referral ID Status Reason Start Date Expiration Date Visits Re quested Visits Authorized [id number] Open 12/20/2023 01/19/2025 1 1 Encounter Details Date Type Department Care Team (Late st Contact Info) Description 12/20/2023 Orders Only [facility] at Work [employer] [place] [address] [facility] [place] [address] Basilia Gomez MD [address] [place] [address] Abnormal mammogram of left breast [...] as of this encounter Care Teams Tractor Trailer Moving Van Driver Relationship Specialty Start Date End Date Basilia Gomez MD [address] [place] [address] PCP - General Internal Medicine 12/13/23 documented as of this encounter
--- OUTSIDE RECORDS SUMMARY | 2024-06-18 17:01 | XMS_ITS | Encounter Summary ---
Author Organization [facility] Address [address] [place] [address] Care Team Providers Care Oncology Coordinator Name Role Phone Basilia Gomez MD Primary Care Provider [phone] Encounter Details Date Type Department Care Team [...] documented as of this encounter Care Teams Oncology Coordinator Relationship Specialty Start Date End Date Basilia Gomez MD [address] [place], [place] [address] [place] [address] PCP - General Internal Medicine 12/13/23 documented as of this encounter
--- OUTSIDE RECORDS SUMMARY | 2024-06-18 17:02 | XMS_ITS | Encounter Summary ---
Author Organization [facility] Address [address] [place] [address] Care Team Providers Care Split Leather Mosser Name Role Phone Adalberto [place] MD Primary Care Provider [phone] Reason for Visit * Reason Onset Date Comments Medication Refill 06/11/2018 Encounter Details Date Type Department Care Team (Late st Contact Info) Description 06/11/2018 Refill [facility] Internal Medicine [address] [phone] Adalberto [place] MD [address] [place] [address] Social History Tobacco Use Types Packs/Day [...] PM CST MANFRED 09/05/17 No future visit AND PRODUCTION PLANNER * Telephone Encounter - Shy Marshall - 06/11/2018 1:56 PM CSTFrom: Rhonda Devlin Sent: 06/11/2018 1:18 PM TOOL AND PRODUCTION PLANNER Subject: Medication Renewal Request Rhonda Devlin would like a refill of the following medications: ergocalciferol (VITAMIN D2) 50,000 unit capsule [Adalberto Morgan MD] Preferred pharmacy: [facility] - [place], [place] - [facility] [address] Delivery method: Pickup Preferred pick-up date and time: 06/12/2018 1:18 PM Comment: AND PRODUCTION PLANNER documented in this encounter Plan of Treatment Not on file documented as of this encounter Visit Diagnoses Not on filedocumented in this encounter Care Teams Split Leather Mosser Relationship Specialty Start Date End Date Adalberto Morgan MD PCP - General Internal Medicine 12/19/15 05/01/22 documented as of this encounter
--- OUTSIDE RECORDS SUMMARY | 2024-06-18 17:02 | XMS_ITS | Encounter Summary ---
Author Organization [facility] Address [address] [place] [address] Care Team Providers Care Tire Maker Name Role Phone Soheila Romero MD Primary Care Provider [phone] Encounter Details Date Type Department Care Team [...] on filedocumented in this encounter Care Teams Tire Maker Relationship Specialty Start Date End Date Soheila Romero MD [address] [place] [address] PCP - General Family Practice 05/02/22 12/12/23 documented as of this encounter
--- OUTSIDE RECORDS SUMMARY | 2024-06-18 17:02 | XMS_ITS | Encounter Summary ---
Author Organization [facility] Address [address] [place] [address] Care Team Providers Care Supervisor Dental Laboratory Name Role Phone Soheila Romero MD Primary Care Provider [phone] Reason for Visit * Reason Comments Depression Anxiety Encounter Details Date Type Department Care Team (Late st Contact Info) Description 10/15/2023 2:00 PM CDT Video Visit [facility] at Work [email or web address] [place] [address] [place] [address] Leandro Paul [address] [place] [phone] Acute reaction to situational stress (Primary Dx) [...] Visit Type: Video PCP: Heather Physician Resident: Knau Reason for Referral: Depression and Stress Symptom [...] 2 PM by video Discuss with Psychiatric Customs Entry Writer? No This encounter was completed via two-way [...] as of this encounter Care Teams Supervisor Dental Laboratory Relationship Specialty Start Date End Date Soheila Romero MD [address] [place] [address] PCP - General Family Practice 05/02/22 12/12/23 documented as of this encounter
--- OUTSIDE RECORDS SUMMARY | 2024-06-18 17:02 | XMS_ITS | Encounter Summary ---
Author Organization [employer] [facility] Address [address] [place] [address] Care Team Providers Care Watch Crystal Molder Name Role Phone Soheila Romero MD Primary Care Provider [phone] Reason for Visit * Reason Onset Date Comments Appointment Verification 08/06/2022 Encounter Details Date Type Department Care Team (Late st Contact Info) Description 08/06/2022 Telephone [facility] at Work [employer] [place] [address] [place] [address] Soheila Romero MD [address] [place] [address] Appointment Verification Social History Tobacco Use [...] on 08/07/22 at 2:30 pm at the [facility] wellness center. IRATORY TECHNICIAN documented in this encounter Plan of Treatment Not on file documented as of this encounter Visit Diagnoses Not on filedocumented in this encounter Care Teams Watch Crystal Molder Relationship Specialty Start Date End Date Soheila Romero MD [address] [place] [address] PCP - General Family Practice 05/02/22 12/12/23 documented as of this encounter
--- OUTSIDE RECORDS SUMMARY | 2024-06-18 17:02 | XMS_ITS | Encounter Summary ---
Author Organization [facility] Address [address] [place] [address] Care Team Providers Care Field Technical Assistant Name Role Phone Soheila Romero MD Primary Care Provider [phone] Reason for Visit * Reason Onset Date Comments CoCM Initial Contact 09/06/2023 Scheduled i nitial assessment for 09/23/23 @ 2 PM in office. Encounter Details Date Type Department Care Team (Late st Contact Info) Description 09/06/2023 Telephone [facility] at Work [employer] [place] [address] [address] Leandro Paul [address] [place] [address] CoCM Initial Contact (Scheduled initial [...] Collaborative Care - Initial Contact Behavioral Health Hydrodynamics Professor (BHCM) spoke with Rhonda to introduce the [...] on filedocumented in this encounter Care Teams Field Technical Assistant Relationship Specialty Start Date End Date Soheila Romero MD [address] [facility] [address] PCP - General Family Practice 05/02/22 12/12/23 documented as of this encounter
--- OUTSIDE RECORDS SUMMARY | 2024-06-18 17:02 | XMS_ITS | Encounter Summary ---
Author Organization [facility] Address [address] [place] [address] Care Team Providers Care Potato Chip Maker Name Role Phone Soheila Romero MD Primary Care Provider [phone] Reason for Visit * Reason Comments Urinary Frequency Encounter Details Date Type Department Care Team (Late st Contact Info) Description 05/02/2022 1:30 PM SHOE REPAIRER APPRENTICE Office Visit [facility] at Work [employer] [place] [address] [place] [address] Soheila Romero MD [address] [place] [address] UTI symptoms (Primary Dx); Refused influenza [...] Comments Blood Pressure 130/82 05/02/2022 2:17 PM SHOE REPAIRER APPRENTICE Pulse 95 05/02/2022 1:29 PM SHOE REPAIRER APPRENTICE Temperature 36.5 ??C (97.7 ??F) 05/02/2022 1:29 PM CS T Respiratory Rate 16 05/02/2022 1:29 PM SHOE REPAIRER APPRENTICE Oxygen Saturation 98% 05/02/2022 1:29 PM SHOE REPAIRER APPRENTICE Inhaled Oxygen Concentration - - Weight 79.4 kg (175 lb) 05/02/2022 1:29 PM SHOE REPAIRER APPRENTICE Height 149.9 cm (4' 11 ) 05/02/2022 1:29 PM SHOE REPAIRER APPRENTICE Body Mass Index 35.35 05/02/2022 1:29 PM SHOE REPAIRER APPRENTICE documented in this encounter Patient Instructions * Attachments The following attachments cannot be sent through Care Everywhere. * UTI (Urinary Tract Infection): Female (Belizean) documented in this encounter Progress Notes * [...] and given to the patient-see patient instructions REPAIRER APPRENTICE documented in this encounter Miscellaneous Notes * Result Encounter Note - Francie Phillips RN - 05/04/2022 2:08 PM SHOE REPAIRER APPRENTICE LM with no pt name giving pt this information. REPAIRER APPRENTICE * Result Encounter Note - Soheila Romero MD - 05/04/2022 1:49 PM SHOE REPAIRER APPRENTICE Contact patient regarding result. How are her symptoms? I would like patient to schedule appointment with solar hot water installer, given her h/o nephrotic syndrome sothat they can discuss chronic long winder tender monitoring. REPAIRER APPRENTICE * Patient Instructions - Soheila Romero MD - 05/02/2022 2:03 PM CST Push water. We will call with lab results. REPAIRER APPRENTICE documented in this encounter Plan of Treatment Not on file documented as of this encounter Procedures Procedure Name Priority Date/Time Associated Diagnosis Comments MICROALBUMIN/CREATININ E RATIO, RANDOM UR Routine 05/02/2022 2:04 PM SHOE REPAIRER APPRENTICE Nephrotic syndrome CBC WITH DIFFERENTIAL Routine 05/02/2022 2:04 PM SHOE REPAIRER APPRENTICE Nephrotic syndrome URINALYSIS W/REFLEX MICROSCOPIC Routine 05/02/2022 2:04 PM SHOE REPAIRER APPRENTICE Nephrotic syndrome URINE CULTURE Routine 05/02/2022 2:04 PM SHOE REPAIRER APPRENTICE UTI symptoms C-REACTIVE PROTEIN Routine 05/02/2022 2: 04 PM SHOE REPAIRER APPRENTICE Nephrotic syndrome ARISTIDES SCREEN W/REFLEX Routine 05/02/2022 2 :04 PM SHOE REPAIRER APPRENTICE Nephrotic syndrome HEMOGLOBIN A1C Routine 05/02/2022 2:04 PM SHOE REPAIRER APPRENTICE Nephrotic syndrome COMPREHENSIVE METABOLIC PANEL Routine 05/02/2022 2:04 PM SHOE REPAIRER APPRENTICE Nephrotic syndrome POC URINALYSIS DIPSTICK AUTOMATED Routine 05/02/2022 1:41 PM SHOE REPAIRER APPRENTICE UTI symptoms documented in this encounter Results * ARISTIDES SCREEN W/REFLEX (05/02/2022 2:04 PM SHOE REPAIRER APPRENTICE) ARISTIDES SCREEN NEGATIVE NEGATIVE [facility] [...] AC-0: Negative International Consensus on ARISTIDES Patterns (https://doi.org/10.1515/jaqb-8489-6384) For additional information, please refer to http://education.Bare Tree Media/faq/GNR180 (This link is being provided for informational/ educational purposes only.) ?? Test Performed at: [facility] ??[address] Bernardo Augustin D.O., MPH Blood 05/02/2022 2:04 PM SHOE REPAIRER APPRENTICE 05/03/2022 6:29 AM SHOE REPAIRER APPRENTICE Soheila Romero MD CHEMISTRY ORDERABLES Performing Organization Address [facility] Co de Phone Number [facility] [phone] [facility] [address] [address] * C-REACTIVE PROTEIN (05/02/2022 2:04 PM SHOE REPAIRER APPRENTICE) CRP 1.8 <8.0 mg/L [facility] Comment: Test Performed at: [facility] ??[address] Bernardo Augustin D.O., MPH Blood 05/02/2022 2:04 PM SHOE REPAIRER APPRENTICE 05/03/2022 6:29 AM SHOE REPAIRER APPRENTICE Soheila Romero MD CHEMISTRY ORDERABLES Performing Organization Address [facility] Co de Phone Number [facility] [phone] [facility] [address] [address] * HEMOGLOBIN A1C (05/02/2022 2:04 PM SHOE REPAIRER APPRENTICE) HEMOGLOBIN A1C 4.4 <5.7 % of total [...] diagnosis of diabetes in children. According to [place] Diabetes Association (ADA) guidelines, hemoglobin A1c <7.0% represents optimal control in non- diabetic patients. Different metrics may apply to specific patient populations. Standards of Medical Care in Diabetes(ADA). ?? ESTIMATED AVERAGE GLUCOSE (MG/DL) 80 mg/dL [facility] ESTIMATED AVERAGE GLUCOSE (MMOL/L) 4.4 mmol/L [facility] Comment: Test Performed at: [facility] [address] [place], [place] ??[address] Bernardo Augustin D.O., MPH Blood 05/02/2022 2:04 PM SHOE REPAIRER APPRENTICE 05/03/2022 6:29 AM SHOE REPAIRER APPRENTICE Soheila Romero MD CHEMISTRY ORDERABLES [facility] [phone] [facility] [address] [place] [address] * (ABNORMAL) URINALYSIS WITH REFLEX MICROSCOPIC (05/02/2022 2:04 PM SHOE REPAIRER APPRENTICE) COLOR UA YELLOW YELLOW [facility] CLARITY UA TURBID(A) CLEAR [facility] SPECIFIC GRAVITY UA 1.023 1.001 - 1.035 [facility] PH UA 5.5 5.0 - 8.0 [facility] GLUCOSE UA NEGATIVE NEGATIVE [facility] BILIRUBIN UA NEGATIVE NEGATIVE [facility] KETONES UA NEGATIVE NEGATIVE [facility] BLOOD UA 3+(A) NEGATIVE [facility] PROTEIN UA 2+(A) NEGATIVE [facility] NITRITE UA POSITIVE(A) NEGATIVE [facility] LEUKOCYTE ESTERASE UA 2+(A) NEGATIVE [facility] WBC UA > OR = 60(A) < OR = 5 /HPF [facility] RBC UA NONE SEEN < OR = 2 /HPF [facility] EPITHELIAL CELLS, URINE NONE SEEN < OR = 5 /HPF [facility] BACTERIA UA MANY(A) NONE SEEN /HPF [facility] HYALINE CAST NONE SEEN NONE SEEN /LPF [facility] Comment: Test Performed at: [facility] [address] [place] [address] ??[phone] Bernardo Augustin D.O., MPH Urine URINE SPECIMEN OBTAINED BY CLEAN CATCH PROCEDURE / Unknown 05/02/2022 2:04 PM SHOE REPAIRER APPRENTICE 05/03/2022 6:32 AM SHOE REPAIRER APPRENTICE Soheila Romero MD URINE ORDERABLES [facility] [phone] [facility] [address] [address] * (ABNORMAL) MICROALBUMIN/CREATININE RATIO, RANDOM UR (05/02/2022 2:04 PM SHOE REPAIRER APPRENTICE) Creatinine, Urine 174 20 - 275 mg/dL [...] within a diagnostic category. Test Performed at: [facility] [address] [place] [address] ??[phone] Bernardo Augustin D.O., MPH Urine URINE SPECIMEN OBTAINED BY CLEAN CATCH PROCEDURE / Unknown 05/02/2022 2:04 PM SHOE REPAIRER APPRENTICE 05/03/2022 6:32 AM SHOE REPAIRER APPRENTICE Soheila Romero MD URINE ORDERABLES [facility] [phone] [facility] [address] [place] [address] * (ABNORMAL) COMPREHENSIVE METABOLIC PANEL (05/02/2022 2:04 PM SHOE REPAIRER APPRENTICE) GLUCOSE 88 65 - 99 mg/dL [facility] [...] [facility] Comment: Test Performed at: [facility] [place] [address] [place], [place] ??[address] Bernardo Augustin D.O., MPH Blood 05/02/2022 2:04 PM SHOE REPAIRER APPRENTICE 05/03/2022 6:29 AM SHOE REPAIRER APPRENTICE Soheila Romero MD CHEMISTRY ORDERABLES [facility] [phone] [facility] [address] [place] [address] * (ABNORMAL) CBC WITH DIFFERENTIAL (05/02/2022 2:04 PM SHOE REPAIRER APPRENTICE) WBC 13.1(H) 3.8 - 10.8 Thousand/u L [...] [facility] Comment: Test Performed at: [facility] [address] [place], [place] ??[address] Bernardo Augustin D.O., MPH Blood 05/02/2022 2:04 PM SHOE REPAIRER APPRENTICE 05/03/2022 6:29 AM SHOE REPAIRER APPRENTICE Soheila Romero MD HEMATOLOGY ORDERABLE S [facility] [phone] [facility] [address] [place] [address] * (ABNORMAL) URINE CULTURE (05/02/2022 2:04 PM SHOE REPAIRER APPRENTICE) URINE CULTURE SEE NOTE(A) [facility] Comment: ??CULTURE, URINE, ROUTINE ?Micro Number: ?[id number] ??Test Status: ? Final ??Specimen Source: ?? [...] cefuroxime, cephalexin ?and loracarbef. Test Performed at: [facility] [place] [address] [place] ??[phone] Kenny Arana Urine URINE SPECIMEN OBTAINED BY CLEAN CATCH PROCEDURE / Unknown 05/02/2022 2:04 PM SHOE REPAIRER APPRENTICE 05/03/2022 1:26 AM SHOE REPAIRER APPRENTICE Soheila Romero MD MICROBIOLOGY - GENER AL ORDERABLES [facility] [phone] [place] [address] [place] [address] * (ABNORMAL) POC URINALYSIS DIPSTICK AUTOMATED (05/02/2022 1:41 PM SHOE REPAIRER APPRENTICE) COLOR UA POC Yellow Pale to Dark Yellow [facility] CLARITY UA POC Cloudy(A) Clear [facility] GLUCOSE UA POC Negative Negative, Normal [facility] BILIRUBIN UA POC Negative Negative [facility] KETONES UA POC Negative Negative [facility] SPECIFIC GRAVITY UA POC >=1.030 1.000 - 1.030 [facility] BLOOD UA POC 3+(A) Negative [facility] PH UA POC 6.0 5.0 - 8.0 [facility] PROTEIN UA POC 2+(A) Negative [facility] UROBILINOGEN UA POC 0.2 <2.0 mg/dL [facility] NITRITE UA POC Positive(A) Negative [facility] LEUKOCYTE ESTERASE UA POC 1+(A) Negative [facility] KIT LOT NUMBER POC 109,036 [facility] [place] KIT EXP DATE POC [id number] [facility] Urine 05/02/2022 1:41 PM SHOE REPAIRER APPRENTICE Soheila Romero MD POINT OF CARE TESTIN G [facility] CLIA# [id number] [address] [place] [address] documented in this encounter Visit Diagnoses Diagnosis UTI symptoms- Primary Refused influenza vaccine Vaccination not carried out because of patient refusal Nephrotic syndrome Nephrotic syndrome with unspecified pathological lesion in kidney documented in this encounter Care Teams Potato Chip Maker Relationship Specialty Start Date End Date Soheila Romero MD [address] [place] [address] PCP - General Family Practice 05/02/22 12/12/23 documented as of this encounter
--- OUTSIDE RECORDS SUMMARY | 2024-06-18 17:02 | XMS_ITS | Encounter Summary ---
Author Organization [facility] Address [address] [place] [address] Care Team Providers Care Family Development Specialist Name Role Phone Soheila Romero MD Primary Care Provider [phone] Encounter Details Date Type Department Care Team [...] on filedocumented in this encounter Care Teams Family Development Specialist Relationship Specialty Start Date End Date Soheila Romero MD [address] [place] [phone] PCP - General Family Practice 05/02/22 12/12/23 documented as of this encounter
--- OUTSIDE RECORDS SUMMARY | 2024-06-18 17:02 | XMS_ITS | Encounter Summary ---
Author Organization [employer] [facility] Address [address] [place] [address] Care Team Providers Care Hide Selector Name Role Phone Soheila Romero MD Primary Care Provider [phone] Encounter Details Date Type Department Care Team (Late st Contact Info) Description 09/25/2023 Chart Note [facility] at Work [employer] [place] [address] [address] Leandro Paul [address] [place] [address] Social History Tobacco Use Types [...] Leandro Paul - 09/25/2023 12:50 PM CDT [facility] Psychiatric Staffing Consult and Review The consulting psychiatrist and behavioral health care managers met on 09/25/2023 for Rhonda. [facility], [...] documented as of this encounter Care Teams Hide Selector Relationship Specialty Start Date End Date Soheila Romero MD [address] [place] [address] PCP - General Family Practice 05/02/22 12/12/23 documented as of this encounter
--- OUTSIDE RECORDS SUMMARY | 2024-06-18 17:02 | XMS_ITS | Encounter Summary ---
Author Organization [facility] Address [address] [place] [address] Care Team Providers Care Police Sergeant Name Role Phone Adalberto Morgan MD Primary Care Provider [phone] Reason for Visit * Reason Comments Labs Only Encounter Details Date Type Department Care Team (Latest Contact Info) Description 09/08/2021 9:00 AM CDT Clinical Support [facility] at [employer] [place] [address] [place] [address] Encounter for screening, unspecified (Primary [...] AM CDT) CHOLESTEROL POC 157 200 mg/dL [facility] [place] HDL POC 40 40 - 59 mg/dL [facility] [place] LDL CALCULATED POC 90 100 mg/dL [facility] TRIGLYCERIDES POC 135 150 mg/dL [facility] NON-HDL CHOLESTEROL POC 0 130 mg/dL [facility] CHOL/HDL RATIO POC 3.9 [facility] GLUCOSE POC 95 65 - 99 mg/dL [facility] Blood 09/08/2021 8:57 AM CDT Abstract Provider POINT OF CARE TESTIN G COM [facility] CLIA# [id number] [address] [place] [address] documented in this encounter Visit Diagnoses Diagnosis Encounter for screening, unspecified- Primary documented in this encounter Care Teams Police Sergeant Relationship Specialty Start Date End Date Adalberto Morgan MD PCP - General Internal Medicine 12/19/15 05/01/22 documented as of this encounter
--- OUTSIDE RECORDS SUMMARY | 2024-06-18 17:02 | XMS_ITS | Encounter Summary ---
Author Organization [facility] Address [address] [place] [address] Care Team Providers Care Want Ad Clerk Name Role Phone Soheila Romero MD Primary Care Provider [phone] Reason for Visit * Reason Comments Zepbound follow up Patient states doing well, only side effect struggling with is the constipation. Encounter Details Date Type Department Care Team (Late st Contact Info) Description 09/19/2023 9:00 AM CDT Office Visit [facility] at Work [employer] [place] [address] [place] [address] Jolly Bobby, ANP [address] [place] [address] Severe obesity (BMI 35.0-39.9) with [...] Constipation, unspecified constipation type Start magnesium supplement-- Birdi or Nature Made brands-- 100 mg daily [...] any ordered test results. SAVANNA Yarbrough 09/19/2023 [facility] [employer] [facility] AT WORK [address] [address] Some of this encounter may have been transcribed using Dragon Naturally Speaking computerized voicerecognition without a human cook fish eggs. This report may or may not have been adjusted for typographical or medical and syntax errors. documented in this encounter Miscellaneous Notes * Patient Instructions - Jolly Bobby ANP - 09/19/2023 9:14 AM CDT Start magnesium supplement-- Nineveh or Nature Made brands-- 100 mg daily [...] classified documented in this encounter Care Teams Want Ad Clerk Relationship Specialty Start Date End Date Soheila Romero MD [address] [place] [address] PCP - General Family Practice 05/02/22 12/12/23 documented as of this encounter
--- OUTSIDE RECORDS SUMMARY | 2024-06-18 17:02 | XMS_ITS | Encounter Summary ---
Author Organization [facility] Address [address] [place] [address] Care Team Providers Care Wallpaper Embosser Helper Name Role Phone Soheila Romero MD Primary Care Provider [phone] Reason for Referral * Eval and Treat (Routine) - Authorized Specialty Diagnoses / Procedures Referred By Catracho aguilar Referred To Contact Diagnoses Acute reaction to situational stress Rossana Pan FNP [address] [place] [address] Referral ID Status Reason Start Date Expiration Date V isits Requested Visits Authorized [id number] Authorized 08/21/2023 08/21/2024 1 1 [employer] INTERN Reason for Visit * Reason Comments review lab results and adjusting to stre ssful life event Encounter Details Date Type Department Care Team (Late st Contact Info) Description 08/21/2023 9:30 AM PROMOTIONS INTERN Telephone Check Up [facility] at Work [email or web address] [address] [place] [address] Rossana Pan FNP [address] [place] [phone] Acute reaction to situational stress (Primary [...] to return call and schedule an appt [employer] INTERN * Rossana Pan FNP - 08/21/2023 9:30 [...] modification and determined current risk remains low. OTIONS INTERN documented in this encounter Miscellaneous Notes * [...] modification and determined current risk remains low. [employer] INTERN documented in this encounter Plan of Treatment [...] type documented in this encounter Care Teams Wallpaper Embosser Helper Relationship Specialty Start Date End Date Soheila Romero MD [address] [place] [address] PCP - General Family Practice 05/02/22 12/12/23 documented as of this encounter
--- OUTSIDE RECORDS SUMMARY | 2024-06-18 17:02 | XMS_ITS | Encounter Summary ---
Author Organization [facility] Address [address] [place] [address] Care Team Providers Care Flush Tester Name Role Phone Soheila Romero MD Primary Care Provider [phone] Reason for Visit * Reason Comments Labs Only Encounter Details Date Type Department Care Team ([facility] st Contact Info) Description 09/07/2022 10:40 AM CDT Office Visit [facility] at Work [employer] [place] [address] [place] [address] Screening for condition (Primary Dx) [...] (09/07/2022 10:28 AM CDT) TSH 2.20 mIU/L [facility] Comment: ?Reference Range ?> or = 20 Years ??0.40-4.50 ? Ranges ?First trimester ?0.26-2.66 ?Second trimester ?? 0.55-2.73 ?Third trimester ?0.43-2.91 Test Performed at: [facility] [address] [place], [place] ??[address] Kenny Arana MD Blood 09/07/2022 10:2 8 AM CDT 09/08/2022 5:26 AM CDT Rossana BURTONP CHEMISTRY ORDERABLES [facility] [phone] [facility] [address] [place] [address] * (ABNORMAL) LIPID PANEL (09/07/2022 10:28 AM [...] LDL-C. Daniel SS et al. HENNY. 2013;310(19): 9179-7265 (http://education.Iris Experience/faq/TKH556) CHOL/HDL RATIO 5.1(H) <5.0 (calc) [facility] TOTAL NON-HDL CHOL(LDL+VLDL) 154(H) <130 mg/dL (calc) [facility] Comment: For patients with diabetes plus 1 major ASCVD risk factor, treating to a non-HDL-C goal of <100 mg/dL (LDL-C of <70 mg/dL) is considered a therapeutic option. Test Performed at: [facility] [address] [place], [place] ??[phone] Kenny Arana MD Blood 09/07/2022 10:2 8 AM CDT 09/08/2022 5:26 AM CDT Rossana Pan [facility] CHEMISTRY ORDERABLES [facility] [phone] [facility] [place] [id number] [place] [address] * COMPREHENSIVE METABOLIC PANEL (09/07/2022 10:28 AM CDT) GLUCOSE 84 65 - 99 mg/dL [facility] [place] Comment: ? Fasting reference interval BUN 13 7 - 25 mg/dL [facility] CREATININE 0.86 0.50 - 0.99 mg/dL [facility] GFR 86 > OR = 60 mL/min/1. 73m2 [facility] Comment: The eGFR is based on the CKD-EPI 2020 equation. To calculate the new eGFR from a previous Creatinine or Cystatin C result, go to https://www.kidney.org/professionals/ kdoqi/gfr%5Fcalculator BUN/CREAT RATIO NOT APPLICABLE 6 - 22 (calc) [facility] SODIUM 137 135 - 146 mmol/L [facility] POTASSIUM 4.5 3.5 - 5.3 mmol/L [facility] CHLORIDE 105 98 - 110 mmol/L [facility] CO2 20 20 - 32 mmol/L [facility] CALCIUM 9.4 8.6 - 10.2 mg/dL [facility] TOTAL PROTEIN 7.4 6.1 - 8.1 g/dL [facility] ALBUMIN 4.6 3.6 - 5.1 g/dL [facility] GLOBULIN 2.8 1.9 - 3.7 g/dL (calc) [facility] ALBUMIN/GLOBULI N RATIO 1.6 1.0 - 2.5 (calc) [facility] BILIRUBIN TOTAL 1.2 0.2 - 1.2 mg/dL [facility] ALKALINE PHOSPHATASE 93 31 - 125 U/L [facility] AST 17 10 - 30 U/L [facility] ALT 12 6 - 29 U/L [facility] Comment: Test Performed at: [facility] [address] [place], [place] ??[phone] Kenny Arana MD Blood 09/07/2022 10:2 8 AM CDT 09/08/2022 5:26 AM CDT Rossana Maxim [facility] CHEMISTRY ORDERABLES [facility] [phone] [facility] [address] [place] [address] * (ABNORMAL) CBC WITH DIFFERENTIAL (09/07/2022 10:28 [...] [facility] Comment: Test Performed at: [facility] [address] [facility] [place] ??[phone] Kenny Arana MD Blood 09/07/2022 10:2 8 AM CDT 09/08/2022 5:26 AM CDT Rossana Pan [employer] HEMATOLOGY ORDERABLE S [facility] [phone] [facility] [address] [address] [place], [place] [address] documented in this encounter Visit Diagnoses Diagnosis Screening for condition- Primary Screening for unspecified condition documented in this encounter Care Teams Flush Tester Relationship Specialty Start Date End Date Soheila Romero MD [address] [place] [address] PCP - General Family Practice 05/02/22 12/12/23 documented as of this encounter
--- OUTSIDE RECORDS SUMMARY | 2024-06-18 17:02 | XMS_ITS | Encounter Summary ---
Author Organization [facility] Address [address] [place] [address] Care Team Providers Care Experimental Mechanic Electrical Name Role Phone Adalberto Morgan MD Primary Care Provider [phone] Reason for Visit * Reason Comments Procedure Encounter Details Date Type Department Care Team (Late st Contact Info) Description 02/06/2019 2:30 PM CDT Office Visit [facility] at Work [employer] [address] [place] [address] Pam Graves, NEETA [address] [facility] [address] [place] [address] Pyogenic granuloma (Primary Dx); Bleeding [...] reviewed and updated in computerized patient record. [facility] 4626 - [facility] 6660 [facility] 256 - [place], [place] - 400 [facility] Care Providers: Patient Care Team: [...] 3:22 PM CDT Bleeding pigmented skin lesion [place] EXC B9 LESION MRGN XCP SK TG [...] INTERPRETATION Comment [facility] Comment: CPT ?. [id number] Tissue 02/06/2019 3:22 PM CDT 02/09/2019 Narrative [facility] - 02/12/2019 4:35 PM CDT Performed at: ??01 - [facility] [place] [facility] [address] [place] [address] ??[id number] Customer Service Operator: Oliverio Maxwell MD, Phone: ??[phone] Performed at: ??02 - [facility] Dermatopathology Consult [address] [place] [address] ??[id number] Customer Service Operator: Leola Young , Phone: ??[phone] Pam Graves NP PATHOLOGY/CYTOL OGY ORDERABLES [facility] [phone] * General Procedure (02/06/2019 9:05 AM CDT) Narrative [facility] [place] - 02/06/2019 9:05 AM [...] Pam Graves NP PROCEDURE/MINOR SURGICAL ORDERABLES [facility]# [id number] [address] [place] [address] documented in this encounter Visit Diagnoses Diagnosis Pyogenic granuloma- Primary Pyogenic granuloma of skin and subcutaneous tissue Bleeding pigmented skin lesion documented in this encounter Care Teams Experimental Mechanic Electrical Relationship Specialty Start Date End Date Adalberto Morgan MD PCP - General Internal Medicine 12/19/15 05/01/22 documented as of this encounter
--- OUTSIDE RECORDS SUMMARY | 2024-06-18 17:02 | XMS_ITS | Encounter Summary ---
Author Organization [facility] Address [address] [place] [address] Care Team Providers Care Edge Stitcher Name Role Phone Adalberto Morgan MD Primary Care Provider [phone] Reason for Visit * Reason Comments Labs Only Encounter Details Date Type Department Care Team (Latest Contact Info) Description 09/29/2020 2:00 PM CDT Clinical Support [facility] [employer] [place] [address] [place] [address] Encounter for screening, unspecified (Primary [...] CDT) CHOLESTEROL 192 200 mg/dL [facility] HDL 45 40 - 59 mg/dL [facility] LDL CALCULATED 117(A) 100 mg/dL [facility] TRIGLYCERIDE 148 150 mg/dL [facility] NON-HDL CHOLESTEROL 0 130 mg/dL [facility] Comment:NA CHOL/HDL RATIO 4.2 [facility] GLUCOSE POC 82 74 - 99 mg/dL [facility] Blood 09/29/2020 1:52 PM CDT Abstract Provider POINT OF CARE TESTIN G COM [facility] CLIA# [id number] [address] [place] [address] documented in this encounter Visit Diagnoses Diagnosis Encounter for screening, unspecified- Primary documented in this encounter Care Teams Edge Stitcher Relationship Specialty Start Date End Date Adalberto Morgan MD PCP - General Internal Medicine 12/19/15 05/01/22 documented as of this encounter
--- OUTSIDE RECORDS SUMMARY | 2024-06-18 17:02 | XMS_ITS | Encounter Summary ---
Author Organization [facility] Address [address] [place] [address] Care Team Providers Care Production Boring Machine Operator Name Role Phone Adalberto Morgan MD Primary Care Provider [phone] Reason for Visit * Reason Comments Urinary Frequency Encounter Details Date Type Department Care Team (Late st Contact Info) Description 11/06/2018 2:30 PM CDT Office Visit [facility] at Work [employer] [address] [place] [address] Pam Graves, NEETA [address] [facility] [address] [place] [address] Cystitis with hematuria (Primary Dx); [...] reviewed and updated in computerized patient record. [facility] 4636 - [place], [place] - [address] [facility] 256 - [place] - 400 [facility] Care Providers: Patient Care Team: Adalberto Morgan [...] from the original note were not included. betNOW. Urinary Tract Infection in Women: Care Instructions [...] Where can you learn more? Go to https://www.Incont.net/patientEd Enter K848 in the search box to learn more about Urinary Tract Infection in Women: Care Instructions. Current as of: June 11, 2018 Content Version: 12.0 ?? [id number] fastDove. Care instructions adapted under license by your healthcare professional. If you have questions about a medical condition or this instruction, always ask your healthcare professional. These instructions may not represent the values of this healthcare organization. [employer]ove disclaims any warranty or liability for your [...] High,A-Abnormal,AA-Critical Abnormal Performed at: 01 CB ?[facility] ?? [address] [facility], [place], [place] ??[address] ?? John Ac PhD, Urine URINE SPECIMEN OBTAINED BY CLEAN CATCH PROCEDURE / Unknown 11/06/2018 2:35 PM CDT 11/06/2018 Narrative [facility] - 11/08/2018 3:35 AM CDT Performed at: ??01 - [facility] [address] ??[id number] Health Information Specialist: John Ac PhD, Phone: ??[phone] Pam Graves NP MICROBIOLOGY - GENERAL ORDERABLES Performing Organization Address [facility]/ZIP Co de Phone Number [facility] [phone] * (ABNORMAL) POC URINALYSIS DIPSTICK NON AUTOMATED (11/06/2018 2:29 PM CDT) COLOR UA Yellow Pale to Dark Yellow [facility] CLARITY UA Clear Clear [facility] GLUCOSE UA Negative Negative, Normal [facility] BILIRUBIN UA Negative Negative [facility] UA Negative Negative [facility] SPECIFIC GRAVITY UA 1.020 1.003 - 1.035 [facility] BLOOD UA Trace(A) Negative [facility] PH UA 6.0 5.0 - 8.0 [facility] PROTEIN UA Negative Negative [facility] UROBILINOGEN UA Normal <2.0 mg/dL [facility] NITRITE UA Negative Negative [facility] LEUKOCYTE ESTERASE UA Trace(A) Negative [facility] KIT LOT NUMBER POC [phone],032 [facility] KIT EXPIRATION DATE POC [phone] [facility] Urine 11/06/2018 2:29 PM CDT Pam Graves NP POINT OF CARE T ESTING Performing Organization Address City/[facility] Co de Phone Number [facility] CLIA# [id number] [address] [place], [place] [address] [place] [address] documented in this encounter Visit Diagnoses Diagnosis Cystitis with hematuria- Primary Cystitis, unspecified Dysuria documented in this encounter Care Teams Production Boring Machine Operator Relationship Specialty Start Date End Date Adalberto Morgan MD PCP - General Internal Medicine 12/19/15 05/01/22 documented as of this encounter
--- OUTSIDE RECORDS SUMMARY | 2024-06-18 17:02 | XMS_ITS | Encounter Summary ---
Author Organization [facility] Address [address] [place] [address] Care Team Providers Care Civil Engineering Technician Name Role Phone Soheila Romero MD Primary Care Provider [phone] Reason for Visit * Reason Comments Labs Only Encounter Details Date Type Department Care Team (Latest Contact Info) Description 08/16/2023 9:00 AM SENIOR MARKET RESEARCH ANALYST Clinical Support [facility] at [employer] [place] [address] [place] [address] Screening for condition (Primary Dx) [...] Comments Blood Pressure 124/84 08/16/2023 9:01 AM SENIOR MARKET RESEARCH ANALYST Pulse - - Temperature - - Respiratory Rate - - Oxygen Saturation - - Inhaled Oxygen Concentration - - Weight 79.4 kg (175 lb) 08/16/2023 9:01 AM SENIOR MARKET RESEARCH ANALYST Height 149.9 cm (4' 11 ) 08/16/2023 9:01 AM SENIOR MARKET RESEARCH ANALYST Body Mass Index 35.35 08/16/2023 9:01 AM SENIOR MARKET RESEARCH ANALYST documented in this encounter Progress Notes * Shira Anguiano - 08/16/2023 9:01 AM CST Pt presents for fasting labs. Left AC 1 stick, successful. Pt tolerated well. OR MARKET RESEARCH ANALYST documented in this encounter Miscellaneous Notes * Result Encounter Note - Francie Phillips RN - 08/20/2023 3:14 PM SENIOR MARKET RESEARCH ANALYST Spoke to pt giving this information. Pt verbalized understanding. Follow up scheduled for 08/21/2023 at 9:30 AM OR MARKET RESEARCH ANALYST documented in this encounter Plan of Treatment Not on file documented as of this encounter Procedures Procedure Name Priority Date/Time Associated Diagnosis Comments CBC WITH DIFFERENTIAL Routine 08/16/2023 8:51 AM SENIOR MARKET RESEARCH ANALYST Screening for condition TSH Routine 08/16/2023 8:51 AM SENIOR MARKET RESEARCH ANALYST Screening for condition LIPID PANEL Routine 08/16/2023 8:51 AM SENIOR MARKET RESEARCH ANALYST Screening for condition COMPREHENSIVE METABOLIC PANEL Routine 08/16/2023 8:51 AM SENIOR MARKET RESEARCH ANALYST Screening for condition documented in this encounter Results * TSH (08/16/2023 8:51 AM SENIOR MARKET RESEARCH ANALYST) TSH 2.76 mIU/L [facility] Comment: ?Reference Range ?> or = 20 Years ??0.40-4.50 ? Ranges ?First trimester ?0.26-2.66 ?Second trimester ?? 0.55-2.73 ?Third trimester ?0.43-2.91 Test Performed at: [facility] [address] [place] ??[address] Kenny Arana MD Blood 08/16/2023 8:51 AM SENIOR MARKET RESEARCH ANALYST 08/17/2023 3:51 AM SENIOR MARKET RESEARCH ANALYST Jolly Bobby ANP CHEMISTRY ORDERABLES Performing Organization Address City/[facility]/ZIP Co de Phone Number [facility] [phone] [facility] [address] [place] [address] * (ABNORMAL) LIPID PANEL (08/16/2023 8:51 AM SENIOR MARKET RESEARCH ANALYST) CHOLESTEROL 208(H) <200 mg/dL [facility] [...] LDL-C. Daniel MCKEON et al. HENNY. 2013;310(19): 7754-1311 (http://education.ArrayPower[employer] Inc./faq/MED695) CHOL/HDL RATIO 4.8 <5.0 (calc) [facility] TOTAL NON-HDL CHOL(LDL+VLDL) 165(H) <130 mg/dL (calc) [facility] Comment: For patients with diabetes plus 1 major ASCVD risk factor, treating to a non-HDL-C goal of <100 mg/dL (LDL-C of <70 mg/dL) is considered a therapeutic option. Test Performed at: [facility] [address] [place] ??[address] Kenny Arana MD Blood 08/16/2023 8:51 AM SENIOR MARKET RESEARCH ANALYST 08/17/2023 3:51 AM SENIOR MARKET RESEARCH ANALYST Jolly Bobby ANP CHEMISTRY ORDERABLES [facility] [phone] [facility] [address] [place] [address] [place] [address] * COMPREHENSIVE METABOLIC PANEL (08/16/2023 8:51 AM SENIOR MARKET RESEARCH ANALYST) GLUCOSE 76 65 - 99 mg/dL [facility] [...] [facility] Comment: Test Performed at: [facility] [address] [place] ??[address] Kenny Arana MD Blood 08/16/2023 8:51 AM SENIOR MARKET RESEARCH ANALYST 08/17/2023 3:51 AM SENIOR MARKET RESEARCH ANALYST Jolly Bobby [facility] CHEMISTRY ORDERABLES [facility] [phone] [facility] [address] [place] [address] * (ABNORMAL) CBC WITH DIFFERENTIAL (08/16/2023 8:51 AM SENIOR MARKET RESEARCH ANALYST) WBC 7.8 3.8 - 10.8 Thousand/u L [...] [facility] Comment: Test Performed at: [facility] [address] [place] ??[address] Kenny Arana MD Blood 08/16/2023 8:51 AM SENIOR MARKET RESEARCH ANALYST 08/17/2023 3:51 AM SENIOR MARKET RESEARCH ANALYST Jolly Bobby ANP HEMATOLOGY ORDERABLE [facility] [phone] [facility] [address] [place] [address] documented in this encounter Visit Diagnoses Diagnosis Screening for condition- Primary Screening for unspecified condition documented in this encounter Care Teams Civil Engineering Technician Relationship Specialty Start Date End Date Soheila Romero MD [address] [facility] [place] [address] PCP - General Family Practice 05/02/22 12/12/23 documented as of this encounter
--- OUTSIDE RECORDS SUMMARY | 2024-06-18 17:02 | XMS_ITS | Encounter Summary ---
Author Organization [facility] Address [address] [address] [place] [address] Care Team Providers Care Patrol Deputy Sheriff Name Role Phone Adalberto Morgan MD Primary Care Provider [phone] Reason for Visit * Reason Comments Mass Encounter Details Date Type Department Care Team (Late st Contact Info) Description 02/05/2019 1:30 PM CDT [facility] Visit [facility] [employer] [address] [place] [address] Pam Graves, NEETA [address] [facility] [address] [place] [address] Granuloma of skin (Primary Dx); [...] reviewed and updated in computerized patient record. [facility] 4659 - [facility] [address] [place] [address] PHARMACY [address] [place], [place] - [address] [facility] Providers: Patient Care Team: Adalberto Morgan MD [...] AM CDT Performed at: ??01 - [facility] [address] ??[id number] [place] Supervisor: John Ac PhD, Phone: ??[phone] Pam Graves SOFTWARE DESIGN ANALYST CHEMISTRY ORDER LUIGI [facility] [phone] * COMPREHENSIVE METABOLIC PANEL (02/05/2019 1:59 PM [...] AM CDT Performed at: ??01 - [facility] [address] ??[id number] [place] Supervisor: John Ac PhD, Phone: ??[phone] Pam Graves NP CHEMISTRY ORDER LUIGI [facility] [phone] * (ABNORMAL) CBC WITH DIFFERENTIAL (02/05/2019 1:59 [...] AM CDT Performed at: ?? - [facility] [address] ??[id number] [place] Supervisor: John Ac PhD, Phone: ??[phone] Pam Graves NP HEMATOLOGY CHICA GIBSON [facility] [phone] documented in this encounter Visit Diagnoses Diagnosis Granuloma of skin- Primary Pyogenic granuloma of skin and subcutaneous tissue Weight gain Abnormal weight gain documented in this encounter Care Teams Patrol Deputy Sheriff Relationship Specialty Start Date End Date Adalberto Morgan MD PCP - General Internal Medicine 12/19/15 05/01/22 documented as of this encounter
--- OUTSIDE RECORDS SUMMARY | 2024-06-18 17:02 | XMS_ITS | Encounter Summary ---
Author Organization [facility] Address [address] [place] [address] Care Team Providers Care Networking Engineer Name Role Phone Adalberto Morgan MD Primary Care Provider [phone] Reason for Referral * Eval and Treat (5-7 Days) - Closed Specialty Diagnoses / Procedures Referred By Catracho aguilar Referred To Contact Gastroenterology Diagnoses [place] [address] [employer] [address] [place] [address] Referral ID Status Reason Start Date Expiration Date V isits Requested Visits Authorized [id number] Closed CRS To Schedule (STL) 06/11/2018 06/11/2019 1 1 RESSION CREW LEADER Reason for Visit * Reason Comments Follow Up heart burn is gettin g worse Encounter Details Date Type Department Care Team (Late st Contact Info) Description 06/11/2018 10:45 AM SUPPRESSION CREW LEADER Office Visit [facility] at Work [employer] [address] [place] [address] [place] [address] [place] [address] Chest discomfort (Primary Dx); Epigastric [...] Comments Blood Pressure 124/84 06/11/2018 10:45 AM SUPPRESSION CREW LEADER Pulse 83 06/11/2018 10:45 AM SUPPRESSION CREW LEADER Temperature 36.7 ??C (98 ??F) 06/11/2018 10:45 AM SUPPRESSION CREW LEADER Respiratory Rate 18 06/11/2018 10:45 AM SUPPRESSION CREW LEADER Oxygen Saturation 99% 06/11/2018 10:45 AM SUPPRESSION CREW LEADER Inhaled Oxygen Concentration - - Weight 64.4 kg (142 lb) 06/11/2018 10:45 AM SUPPRESSION CREW LEADER Height 151.1 cm (4' 11.5 ) 06/11/2018 10:[address] Body Mass Index 28.2 06/11/2018 10:45 AM SUPPRESSION CREW LEADER documented in this encounter Progress Notes * [...] reviewed and updated in computerized patient record. [facility] 4622 - [place] - [address] [facility] 256 - [place] - [address] [facility] Providers: Patient Care Team: Adalberto Morgan [...] today. Go to ER if symptoms worsen. RESSION CREW LEADER documented in this encounter Procedure Notes * Pam Graves NP - 06/11/2018 11:46 AM CSTAssociated Order(s): EKG 12-LEAD Procedure(s): [place] ECG ROUTINE ECG W/LEAST 12 LDS W/I&R Pre-Procedure Diagnose(s): Chest discomfort NSR rate 70, no ST or T wave changes. Normal axis. RESSION CREW LEADER documented in this encounter Plan of Treatment Scheduled Referrals Name Type Priority Associated Diagnoses Order Schedule AMB REFERRAL TO GASTROENTEROLOGY Outpatient Referral Routine Epigastric abdominal pain Ordered: 06/11/2018 documented as of this encounter Procedures Procedure Name Priority Date/Time Associated Diagnosis Comments [place] ECG ROUTINE ECG W/LEAST 12 LDS W/I&R Routine 06/11/2018 11:46 AM SUPPRESSION CREW LEADER Chest discomfort CBC WITH DIFFERENTIAL Routine 06/11/2018 11:46 AM SUPPRESSION CREW LEADER Epigastric abdominal pain LIPASE Routine 06/11/2018 11:46 AM SUPPRESSION CREW LEADER Epigastric abdominal pain AMYLASE Routine 06/11/2018 11:46 AM SUPPRESSION CREW LEADER Epigastric abdominal pain COMPREHENSIVE METABOLIC PANEL Routine 06/11/2018 11:46 AM SUPPRESSION CREW LEADER Epigastric abdominal pain documented in this encounter Results * [place] ECG ROUTINE ECG W/LEAST 12 LDS W/I&R (06/11/2018 11:46 AM SUPPRESSION CREW LEADER) Narrative [facility] [[email or web address] - 06/11/2018 11:46 AM SUPPRESSION CREW LEADER Pam Graves NP ? 06/11/2018 12:01 PM NSR rate 70, no ST or T wave changes. Normal axis. Procedure Note Pam Graves NP - 06/11/2018 11:46 AM CST NSR rate 70, no ST or T wave changes. Normal axis. Pam Graves NP ECG ORDERABLES Performing Organization Address City/[facility]/ZIP Co de Phone Number [facility] [[email or web address]] CLIA# [id number] [address] [place] [address] [place] [address] * LIPASE (06/11/2018 11:46 AM SUPPRESSION CREW LEADER) LIPASE 27 14 - 72 U/L [facility] Blood 06/11/2018 11:4 6 AM SUPPRESSION CREW LEADER 06/11/2018 Narrative [facility] - 06/12/2018 8:48 AM SUPPRESSION CREW LEADER Performed at: ??01 - [facility] [address] ??[id number] Computer Programmer: John Ac PhD, Phone: ??[phone] Pam Graves NP CHEMISTRY ORDER LUIGI [facility] * AMYLASE (06/11/2018 11:46 AM SUPPRESSION CREW LEADER) AMYLASE 74 31 - 124 U/L [facility] Blood 06/11/2018 11:4 6 AM SUPPRESSION CREW LEADER 06/11/2018 Narrative [facility] - 06/12/2018 8:48 AM SUPPRESSION CREW LEADER Performed at: ??01 - [facility] [address] ??[id number] Computer Programmer: John Ac PhD, Phone: ??[phone] Pam Graves DOUGH MIXER HELPER CHEMISTRY ORDER LUIGI [facility] * COMPREHENSIVE METABOLIC PANEL (06/11/2018 11:46 AM SUPPRESSION CREW LEADER) GLUCOSE 71 65 - 99 mg/dL [facility] [...] [facility] Blood 06/11/2018 11:4 6 AM SUPPRESSION CREW LEADER 06/11/2018 Narrative [facility] - 06/12/2018 6:38 AM SUPPRESSION CREW LEADER Performed at: ??01 - [facility] [address], [place], [place] ??[id number] Computer Programmer: John Ac PhD, Phone: ??[phone] Pam Graves DOUGH MIXER HELPER CHEMISTRY ORDER LUIGI [facility] * (ABNORMAL) CBC WITH DIFFERENTIAL (06/11/2018 11:46 AM SUPPRESSION CREW LEADER) WBC 9.7 3.4 - 10.8 x10E3/uL [facility] [...] [facility] Blood 06/11/2018 11:4 6 AM SUPPRESSION CREW LEADER 06/11/2018 Narrative [facility] - 06/12/2018 5:36 AM SUPPRESSION CREW LEADER Performed at: ??01 - [facility] [address] ??[id number] Computer Programmer: John Ac PhD, Phone: ??[phone] Pam Graves DOUGH MIXER HELPER HEMATOLOGY CHICA GIBSON Performing Organization Address City/State/[facility] Co de Phone Number [facility] documented in this encounter Visit Diagnoses Diagnosis Chest discomfort- Primary Other chest pain Epigastric abdominal pain Abdominal pain, epigastric documented in this encounter Care Teams Networking Engineer Relationship Specialty Start Date End Date Adalberto Morgan MD PCP - General Internal Medicine 12/19/15 05/01/22 documented as of this encounter
--- OUTSIDE RECORDS SUMMARY | 2024-06-18 17:02 | XMS_ITS | Encounter Summary ---
Author Organization [facility] Address [address] [place] [address] Care Team Providers Care Corporate Health Consultant Name Role Phone Soheila Romero MD Primary Care Provider [phone] Reason for Visit * Reason Onset Date Comments CoCM Initial Contact 09/05/2023 2nd contact to schedule initial assessment. Left message. Encounter Details Date Type Department Care Team (Late st Contact Info) Description 09/05/2023 Telephone [facility] at Work [employer] [place] [address] [place] [address] Leandro Paul [address] [place] [address] CoCM Initial Contact (2nd contact to [...] on filedocumented in this encounter Care Teams Corporate Health Consultant Relationship Specialty Start Date End Date Soheila Romero MD [address] [place] [address] PCP - General Family Practice 05/02/22 12/12/23 documented as of this encounter
--- OUTSIDE RECORDS SUMMARY | 2024-06-18 17:02 | XMS_ITS | Encounter Summary ---
Author Organization [facility] Address [address] [place] [address] Care Team Providers Care Cycle Director Name Role Phone Adalberto Morgan MD Primary Care Provider [phone] Reason for Visit * Reason Comments Ear Problem Encounter Details Date Type Department Care Team (Late st Contact Info) Description 08/27/2018 9:00 AM DEHORNER Office Visit [facility] [address] [place] [address] Jaison Irwin MD NO ADDRESS [...] Comments Blood Pressure 126/84 08/27/2018 8:55 AM DEHORNER Pulse 87 08/27/2018 8:55 AM DEHORNER Temperature 36.4 ??C (97.5 ??F) 08/27/2018 8:55 AM CS T Respiratory Rate 18 08/27/2018 8:55 AM DEHORNER Oxygen Saturation 99% 08/27/2018 8:55 AM DEHORNER Inhaled Oxygen Concentration - - Weight 67.1 kg (148 lb) 08/27/2018 8:55 AM DEHORNER Height 151.1 cm (4' 11.5 ) 08/27/2018 8:55 AM CS T Body Mass Index 29.39 08/27/2018 8:55 AM DEHORNER documented in this encounter Progress Notes * [...] Ceruminosis, bilateral H61.23 380.4 Followup visit prn RNER documented in this encounter Miscellaneous Notes * Patient Instructions - Jaison Irwin MD - 08/27/2018 9:56 AM DEHORNER An After Visit Summary was printed and given to the patient. May use otc decongestant if needed Feel free to follow in six months for ear/ear wax evaluation RNER documented in this encounter Plan of Treatment Not on file documented as of this encounter Visit Diagnoses Diagnosis Ceruminosis, bilateral- Primary documented in this encounter Care Teams Cycle Director Relationship Specialty Start Date End Date Adalberto Morgan MD PCP - General Internal Medicine 12/19/15 05/01/22 documented as of this encounter
--- OUTSIDE RECORDS SUMMARY | 2024-06-18 17:02 | XMS_ITS | Encounter Summary ---
Author Organization [facility] Address [address] [place] [address] Care Team Providers Care Pump Machine Operator Name Role Phone Soheila Romero MD Primary Care Provider [phone] Encounter Details Date Type Department Care Team [...] on filedocumented in this encounter Care Teams Pump Machine Operator Relationship Specialty Start Date End Date Soheila Romero MD [address] [place] [phone] PCP - General Family Practice 05/02/22 12/12/23 documented as of this encounter
--- OUTSIDE RECORDS SUMMARY | 2024-06-18 17:02 | XMS_ITS | Encounter Summary ---
Author Organization [facility] Address [address] [place] [address] Care Team Providers Care Robotic Weld Technician Name Role Phone Adalberto Morgan MD Primary Care Provider [phone] Reason for Visit * Reason Comments Labs Only Encounter Details Date Type Department Care Team ([facility] st Contact Info) Description 11/25/2018 8:30 AM CDT Office Visit [facility] at [employer] [address] [place] [address] Screening for condition (Primary Dx) [...] (11/25/2018) GLUCOSE 87 74 - 99 mg/dL [facility] Blood 11/25/2018 Abstract Provider CHEMISTRY ORDERABLES [facility] CLIA# [id number] [facility] [place] [address] * (ABNORMAL) LIPID PANEL (11/25/2018) CHOLESTEROL 160 200 mg/dL [facility] TRIGLYCERIDE 72 150 mg/dL [facility] HDL 41 40 - 59 mg/dL [facility] LDL CALCULATED 104(A) 100 mg/dL [facility] TC/HDL POC 3.9 3.43 - 4.97 Ratio [facility] Blood 11/25/2018 Abstract Provider CHEMISTRY ORDERABLES [facility] CLIA# [id number] [address] [place] [address] [place] [address] documented in this encounter Visit Diagnoses Diagnosis Screening for condition- Primary Screening for unspecified condition documented in this encounter Care Teams Robotic Weld Technician Relationship Specialty Start Date End Date Adalberto Morgan MD PCP - General Internal Medicine 12/19/15 05/01/22 documented as of this encounter
--- OUTSIDE RECORDS SUMMARY | 2024-06-18 17:02 | XMS_ITS | Encounter Summary ---
Author Organization [facility] Address [address] [place] [address] Care Team Providers Care Job Counselor Name Role Phone Soheila Romero MD Primary Care Provider [phone] Reason for Visit * Reason Comments Depression Anxiety Encounter Details Date Type Department Care Team (Late st Contact Info) Description 09/23/2023 2:00 PM CDT Office Visit [facility] at Work [employer] [place] [address] [address] Leandro Paul [address] [place] [address] Acute reaction to situational stress [...] Care Everywhere. * Collaborative Care: Mindfulness Techniques (Citizen Of [place]) documented in this encounter Progress Notes * Leandro Paul - 09/23/2023 2:06 PM CDT Collaborative Care - Initial Assessment Patient Name: Rhonda Devlin Date: 09/23/2023 Length of Visit: 45 minutes Visit Type: Office PCP: Heather ELEN/Physician Resident: Kanu PCP Reason for Referral: Depression and Stress Introduction to Collaborative Care This skid man met with Rhonda and they verbalized and [...] the excuse. Dad did 2 tours in [place] came home and in car accident when Rhonda was 25. Mom hates her current boyfriend, and tries to manipulate . Relationship with sisters are good. Brother lives in [place], but chooses mom and does not speak [...] 2 PM in office Discuss with Psychiatric Road Grader? Yes, new pt. Leandro Paul documented in this encounter Plan of Treatment Not on file documented as of this encounter Visit Diagnoses Diagnosis Acute reaction to situational stress- Primary documented in this encounter Additional Health Concerns Assessment Noted Time PHQ-9 Depression Total Score: 3 09/23/19 2:00 PM CDT documented as of this encounter Care Teams Job Counselor Relationship Specialty Start Date End Date Soheila Romero MD [address] [place] [phone] PCP - General Family Practice 05/02/22 12/12/23 documented as of this encounter
--- OUTSIDE RECORDS SUMMARY | 2024-06-18 17:02 | XMS_ITS | Encounter Summary ---
Author Organization [facility] Address [address] [place] [address] Care Team Providers Care Photoradio Operator Name Role Phone Soheila Romero MD Primary Care Provider [phone] Encounter Details Date Type Department Care Team [...] documented as of this encounter Care Teams Photoradio Operator Relationship Specialty Start Date End Date Soheila Romero MD [address] [place] [phone] PCP - General Family Practice 05/02/22 12/12/23 documented as of this encounter
--- OUTSIDE RECORDS SUMMARY | 2024-06-18 17:02 | XMS_ITS | Encounter Summary ---
Author Organization [facility] Address [address] [place] [address] Care Team Providers Care Embedded Systems Software Engineer Name Role Phone Soheila Romero MD Primary Care Provider [phone] Encounter Details Date Type Department Care Team [...] on filedocumented in this encounter Care Teams Embedded Systems Software Engineer Relationship Specialty Start Date End Date Soheila Romero MD [address] [place] [phone] PCP - General Family Practice 05/02/22 12/12/23 documented as of this encounter
--- OUTSIDE RECORDS SUMMARY | 2024-06-18 17:02 | XMS_ITS | Encounter Summary ---
Author Organization [employer] [facility] Address [address] [place] [address] Care Team Providers Care Underbaster Name Role Phone Adalberto Morgan MD Primary Care Provider [phone] Encounter Details Date Type Department Care Team (Late st Contact Info) Description 06/13/2018 Orders Only [facility] at Work [employer] [address] [address] [place] [address] [facility] [address] [place] [address] Social History Tobacco Use Types [...] have hx of nephrotic syndrome in remission. T HEALTH CARE TECHNICIAN documented in this encounter Plan of [...] on filedocumented in this encounter Care Teams Underbaster Relationship Specialty Start Date End Date Adalberto Morgan MD PCP - General Internal Medicine 12/19/15 05/01/22 documented as of this encounter
--- OUTSIDE RECORDS SUMMARY | 2024-06-18 17:03 | XMS_ITS | Encounter Summary ---
Author Organization [facility] Address [address] [place] [address] Care Team Providers Care Line Rider Name Role Phone Adalberto Morgan MD Primary Care Provider [phone] Reason for Visit * Reason Onset Date Comments Provider Call 01/10/2016 Encounter Details Date Type Department Care Team (Late st Contact Info) Description 01/10/2016 Telephone [facility] Internal Medicine [address] [address] Adalberto Morgan MD [address] [place] [address] Provider Call Social History Tobacco Use [...] Telephone Encounter - Adalberto Morgan MD - 01/10/2016 6:45 PM CDT Spoke [...] on filedocumented in this encounter Care Teams Line Rider Relationship Specialty Start Date End Date Adalberto Morgan MD PCP - General Internal Medicine 12/19/15 05/01/22 documented as of this encounter
--- OUTSIDE RECORDS SUMMARY | 2024-06-18 17:03 | XMS_ITS | Encounter Summary ---
Author Organization [facility] Address [address] [place] [address] Care Team Providers Care Quality Assurance Lead Name Role Phone Adalberto Morgan MD Primary Care Provider [phone] Reason for Visit * Reason Comments Physical Depression today Medication Refill Encounter Details Date Type Department Care Team (Late st Contact Info) Description 11/21/2016 10:15 AM CDT Office Visit [facility] Internal Medicine [address] [address] Adalberto Morgan MD [address] [place] [address] Routine general medical examination at a [...] Nephrotic syndrome 12/28/2015 Overview Note: F/u with mechanical fitter q 3 months. ??? Edema 12/28/2015 Med [...] Morgan MD CHEMISTRY ORDERABLES Performing Organization Address City/[facility] Co de Phone Number EXTERNAL LAB * (ABNORMAL) VITAMIN D 25 HYDROXY (11/21/2016 11:40 AM CDT) VITAMIN D, 25 OH, TOTAL 13(A) 30 - 80 EXTERNAL LAB VITAMIN D, 25 OH, D2 EXTERNAL LAB VITAMIN D, 25 OH, D3 EXTERNAL LAB ALWAYS MESSAGE EXTERNAL LAB Blood 11/21/2016 11:4 0 AM CDT Adalberto Morgan MD CHEMISTRY ORDERABLES Performing Organization Address City/[facility] de Phone Number EXTERNAL LAB * TSH (11/21/2016 11:40 AM CDT) Pathologist [facility] TSH 1.79 0.30 - 5.00 uIU/mL EXTERNAL [...] (pneumococcus) documented in this encounter Care Teams Quality Assurance Lead Relationship Specialty Start Date End Date Adalberto Morgan MD PCP - General Internal Medicine 12/19/15 05/01/22 documented as of this encounter
--- OUTSIDE RECORDS SUMMARY | 2024-06-18 17:03 | XMS_ITS | Encounter Summary ---
Author Organization [facility] Address [address] [place] [address] Care Team Providers Care Senior Radiation Therapist Name Role Phone Adalberto Morgan MD Primary Care Provider [phone] Reason for Visit * Reason Onset Date Comments Immunization/Injection Reaction 11/22/2016 Encounter Details Date Type Department Care Team (Late st Contact Info) Description 11/22/2016 Telephone [facility] Internal Medicine [address] [address] Adalberto Morgan MD [address] [place] [address] Immunization/Injection Reaction Social History Tobacco Use [...] on filedocumented in this encounter Care Teams Senior Radiation Therapist Relationship Specialty Start Date End Date Adalberto Morgan MD PCP - General Internal Medicine 12/19/15 05/01/22 documented as of this encounter
--- OUTSIDE RECORDS SUMMARY | 2024-06-18 17:03 | XMS_ITS | Encounter Summary ---
Author Organization [facility] Address [address] [place] [address] Care Team Providers Care Recruiting Administrator Name Role Phone Adalberto Morgan MD Primary Care Provider [phone] Reason for Visit * Reason Comments Labs Only Annual Wellness scre ening Encounter Details Date Type Department Care Team (Late st Contact Info) Description 02/20/2018 7:00 AM CDT Office Visit [facility] at Work [employer] [address] [place] [address] Screening for condition (Primary Dx) [...] AM CDT Performed at: ??01 - [facility] [address] ??[id number] Warp Clamper: John Ac PhD, Phone: ??[phone] Pam Graves NP CHEMISTRY ORDER [facility] [...] AM CDT Performed at: ??01 - [facility] [address], [place], [place] ??[id number] War[employer] Clamper: John Ac PhD, Phone: ??[phone] Pam Graves FIELD SALES MANAGER CHEMISTRY ORDER [facility] STL * COMPREHENSIVE [...] AM CDT Performed at: ??01 - [facility] [address] ??[id number] Warp Clamper: John Ac PhD, Phone: ??[phone] Pam Graves NP CHEMISTRY ORDER [facility] [...] AM CDT Performed at: ??01 - [facility] [address] ??[id number] Warp Clamper: John Ac PhD, Phone: ??[phone] Pam Graves NP HEMATOLOGY CHICA GIBSON [facility] ST[facility] documented in this encounter Visit Diagnoses Diagnosis Screening for condition- Primary Screening for unspecified condition documented in this encounter Additional Health Concerns Assessment Noted Time PHQ-9 Depression Total Score: 3 02/21/20 18 7:00 AM CDT documented as of this encounter Care Teams Recruiting Administrator Relationship Specialty Start Date End Date Adalberto Morgan MD PCP - General Internal Medicine 12/19/15 05/01/22 documented as of this encounter
--- OUTSIDE RECORDS SUMMARY | 2024-06-18 17:03 | XMS_ITS | Encounter Summary ---
Author Organization [facility] Address [address] [place] [address] Care Team Providers Care Char Filter Operator Helper Name Role Phone Adalberto Morgan MD Primary Care Provider [phone] Reason for Referral * Eval and Treat (Routine) - Closed Specialty Diagnoses / Procedures Referred By Catracho aguilar Referred To Contact Neurology Diagnoses Numbness Adalberto Morgan MD [address] [place] [address] [facility] Neurology [place] [address] [address] [facility] [facility] [address] [place] [address] Referral ID Status Reason Start Date Expiration Date V isits Requested Visits Authorized [id number] Closed CRS To Schedule (STL) 09/25/2017 09/25/2018 1 1 Reason for Visit * Reason Onset Date Comments Results 09/25/2017 Encounter Details Date Type Department Care Team (Late st Contact Info) Description 09/25/2017 Telephone [facility] Internal Medicine [address] [address] Adalberto Morgan MD [address] [place] [address] [address] [place] [address] Results Social History Tobacco Use Types [...] sensation documented in this encounter Care Teams Char Filter Operator Helper Relationship Specialty Start Date End Date Adalberto Morgan MD PCP - General Internal Medicine 12/19/15 05/01/22 documented as of this encounter
--- OUTSIDE RECORDS SUMMARY | 2024-06-18 17:03 | XMS_ITS | Encounter Summary ---
Author Organization [facility] Address [address] [place] [address] Care Team Providers Care Mold Shop Supervisor Name Role Phone Adalberto Morgan MD Primary Care Provider [phone] Reason for Visit * Reason Comments Establish Care Pt states that she i s here to establish with us and transfer meds to be filled here. Will need a refill of Lisinopril Encounter Details Date Type Department Care Team (Late st Contact Info) Description 05/27/2018 3:00 PM LEAD SOFTWARE ENGINEER Office Visit [facility] at Work [employer] [address] [facility] [place] [address] Pam Graves, CODING SPEC [id number] [facility] [address] [place] [address] Gastroesophageal reflux disease without esophagitis [...] Comments Blood Pressure 116/72 05/27/2018 2:50 PM LEAD SOFTWARE ENGINEER Pulse 77 05/27/2018 2:50 PM LEAD SOFTWARE ENGINEER Temperature 36.5 ??C (97.7 ??F) 05/27/2018 2:50 PM CS T Respiratory Rate 16 05/27/2018 2:50 PM LEAD SOFTWARE ENGINEER Oxygen Saturation 99% 05/27/2018 2:50 PM LEAD SOFTWARE ENGINEER Inhaled Oxygen Concentration - - Weight 63.5 kg (140 lb) 05/27/2018 2:50 PM LEAD SOFTWARE ENGINEER Height 151.1 cm (4' 11.5 ) 05/27/2018 2:50 PM CS T Body Mass Index 27.8 05/27/2018 2:50 PM LEAD SOFTWARE ENGINEER documented in this encounter Progress Notes * Pam Graves, CODING SPEC - 05/27/2018 3:04 PM CST HISTORY OF [...] syndrome exacerbated by viral illnesses. Sees a top lift compressor once a year and when she has [...] reviewed and updated in computerized patient record. [place] [id number] [place], [facility] [address] Care Providers: Patient Care Team: Adalberto [...] bloody stools. Denies dizziness. No epigastric pain. SOFTWARE ENGINEER documented in this encounter Plan of Treatment Not on file documented as of this encounter Visit Diagnoses Diagnosis Gastroesophageal reflux disease without esophagitis- Primary Esophageal reflux Screening for breast cancer Breast screening, unspecified History of nephrotic syndrome Personal history of nephrotic syndrome documented in this encounter Care Teams Mold Shop Supervisor Relationship Specialty Start Date End Date Adalberto Morgan MD PCP - General Internal Medicine 12/19/15 05/01/22 documented as of this encounter
--- OUTSIDE RECORDS SUMMARY | 2024-06-18 17:03 | XMS_ITS | Encounter Summary ---
Author Organization [facility] Address [address] [place] [address] Care Team Providers Care Library Director Name Role Phone Adalberto Morgan MD Primary Care Provider [phone] Reason for Referral * Outpatient Services (Routine) - Closed Specialty Diagnoses / Procedures Referred By Catracho aguilar Referred To Contact Neurology Diagnoses Idiopathic peripheral neuropathy Procedures EMG WITH NERVE CONDUCTION Adalberto Morgan MD [address] [place] [phone] Rhoda Mckeon MD [address] [place] [phone] Referral ID Status Reason Start Date Expiration Date V isits Requested Visits Authorized [id number] Closed STL CTS 09/05/2017 10/06/2018 1 1 Reason for Visit * Outpatient Services (Routine) - Closed Specialty Diagnoses / Procedures Referred By Catracho aguilar Referred To Contact Neurology Diagnoses Idiopathic peripheral neuropathy Procedures EMG WITH NERVE CONDUCTION Adalberto Morgan MD [address] [place] [address] Rhoda Mckeon MD [address] [place] [phone] Referral ID Status Reason Start Date Expiration Date V isits Requested Visits Authorized [id number] Closed STL CTS 09/05/2017 10/06/2018 1 1 Encounter Details Date Type Department Care Team (Latest Contact Info) Description 09/24/2017 1:24 PM CDT - 09/24/2017 11:59 PM CDT Hospital Encounter [facility] Support Services EMG [facility] [address] [place] [address] Adalberto Morgan MD [address] [phone] Rhoda Mckeon MD [address] [facility] [address] [address] Discharge Disposition: Home or Self [...] of this encounter Procedure Notes * Rhoda Mckeno MD - 09/25/2017 12:54 AM CDTAssociated Order(s): EMG WITH NERVE CONDUCTION [place], [place] [address] EMG/NCS CSN: [id number] DATE OF SERVICE: 09/24/2017 BRIEF HISTORY 36-year-old [...] in the bilateral upper limbs. [place]:MEDQ DID: [id number] Dictated by: Rhoda Mckeon M.D. cc: Adalberto [...] Mckeon MD - 09/25/2017 12:54 AM CDT [place], [place] [address] EMG/NCS CSN: [id number] DATE OF SERVICE: 09/24/2017 BRIEF HISTORY 36-year-old [...] neuropathies in the bilateral upper limbs. [place]:MEDQ DID:[id number] Dictated by: Rhoda Mckeon M.D. cc: Adalberto Morgan MD Adalberto Morgan MD NEUROLOGY [facility]ABLES [facility] documented in this encounter Visit Diagnoses Diagnosis Idiopathic peripheral neuropathy Unspecified hereditary and idiopathic peripheral neuropathy documented in this encounter Care Teams Library Director Relationship Specialty Start Date End Date Adalberto Morgan MD PCP - General Internal Medicine 12/19/15 05/01/22 documented as of this encounter
--- OUTSIDE RECORDS SUMMARY | 2024-06-18 17:03 | XMS_ITS | Encounter Summary ---
Author Organization [facility] Address [address] [place] [address] Care Team Providers Care Service Operations Manager Name Role Phone Adalberto Morgan MD Primary Care Provider [phone] Encounter Details Date Type Department Care Team (Late st Contact Info) Description 11/22/2016 Orders Only [facility] Internal Medicine [address] [address] Adalberto Morgan MD [address] [place] [address] Vitamin B12 deficiency (non anemic); Other [...] Morgan MD CHEMISTRY ORDERABLES Performing Organization Address City/[facility] Co de Phone Number EXTERNAL LAB * (ABNORMAL) VITAMIN D 25 HYDROXY (11/21/2016 11:40 AM CDT) Pathologist [facility] VITAMIN D, 25 OH, TOTAL 13(A) 30 - 80 EXTERNAL LAB VITAMIN D, 25 OH, D2 EXTERNAL LAB VITAMIN D, 25 OH, D3 EXTERNAL LAB ALWAYS MESSAGE EXTERNAL LAB Blood 11/21/2016 11:4 0 AM CDT Adalberto Morgan MD CHEMISTRY ORDERABLES Performing Organization Address City/[facility] Co de Phone Number EXTERNAL LAB * TSH (11/21/2016 11:40 AM CDT) Pathologist [facility] TSH 1.79 0.30 - 5.00 uIU/mL EXTERNAL LAB Blood 11/21/2016 11:4 0 AM CDT Adalberto Morgan MD CHEMISTRY ORDERABLES Performing Organization Address City/[facility]/ZIP Co de Phone Number EXTERNAL LAB * [...] deficiency documented in this encounter Care Teams Service Operations Manager Relationship Specialty Start Date End Date Adalberto Morgan MD PCP - General Internal Medicine 12/19/15 05/01/22 documented as of this encounter
--- OUTSIDE RECORDS SUMMARY | 2024-06-18 17:03 | XMS_ITS | Encounter Summary ---
Author Organization [facility] Address [address] [place] [address] Care Team Providers Care Die Tripper Name Role Phone Adalberto Morgan MD Primary Care Provider Reason for Visit * Reason Comments Tingling both hands and feet - ongoing 2/3 days Hand Pain both hand cramping a nd tingling - ongoing 2/3 weeks Nephrotic syndrome Medication Refill lisinopril 5mg daily Encounter Details Date Type Department Care Team (Late st Contact Info) Description 02/13/2017 12:15 PM CDT Office Visit [facility] Internal Medicine [address] [address] Adalberto Morgan MD [address] [place] [address] Nephrotic syndrome (Primary Dx); Other depression; [...] Nephrotic syndrome 12/28/2015 Overview Note: F/u with structural analysis engineer q 3 months. ??? Edema 12/28/2015 Med [...] monofilament exam Hands, tinel neg, phalen neg Machine Design Engineer ok Mood stable Assessment and Plan: ASSESSMENT: [...] deficiency documented in this encounter Care Teams Die Tripper Relationship Specialty Start Date End Date Adalberto Morgan MD PCP - General Internal Medicine 12/19/15 05/01/22 documented as of this encounter
--- OUTSIDE RECORDS SUMMARY | 2024-06-18 17:03 | XMS_ITS | Encounter Summary ---
Author Organization [facility] Address [address] [place] [address] Care Team Providers Care Budget Record Clerk Name Role Phone Adalberto Morgan MD Primary Care Provider [phone] Encounter Details Date Type Department Care Team (Late st Contact Info) Description 01/15/2016 Abstract [facility] Internal Medicine [address] [address] Adalberto Morgan MD [address] [place] [address] Social History Tobacco Use Types Packs/Day [...] on filedocumented in this encounter Care Teams Budget Record Clerk Relationship Specialty Start Date End Date Adalberto Morgan MD PCP - General Internal Medicine 12/19/15 05/01/22 documented as of this encounter
--- OUTSIDE RECORDS SUMMARY | 2024-06-18 17:03 | XMS_ITS | Encounter Summary ---
Author Organization [facility] Address [address] [place] [address] Care Team Providers Care Tire Assembler Name Role Phone Adalberto Morgan MD Primary Care Provider [phone] Encounter Details Date Type Department Care Team (Late st Contact Info) Description 12/28/2015 Orders Only [facility] Internal Medicine [address] [address] Adalberto Morgan MD [address] [place] [address] Edema, unspecified type Social History Tobacco [...] type documented in this encounter Care Teams Tire Assembler Relationship Specialty Start Date End Date Adalberto Morgan MD PCP - General Internal Medicine 12/19/15 05/01/22 documented as of this encounter
--- OUTSIDE RECORDS SUMMARY | 2024-06-18 17:03 | XMS_ITS | Encounter Summary ---
Author Organization [facility] Address [address] [place] [address] Care Team Providers Care Flat Knitter Name Role Phone Adalberto Morgan MD Primary Care Provider [phone] Encounter Details Date Type Department Care Team (Late st Contact Info) Description 11/22/2016 Orders Only [facility] Internal Medicine [address] [address] Provider, Abstract NO ADDRESS ON FILE Social [...] Procedure Name Priority Date/Time Associated Diagnosis Comments COMPREHENSIVE METABOLIC PANEL Routine 11/21/2016 documented in this encounter Results * COMPREHENSIVE METABOLIC PANEL (11/21/2016) SODIUM 135 - 145 mmol/L EXTERNAL LAB SODIUM EXTERNAL LAB POTASSIUM 3.5 - 4.9 mmol/L EXTERNAL LAB POTASSIUM EXTERNAL LAB CHLORIDE 96 - 108 mmol/L EXTERNAL LAB CHLORIDE EXTERNAL LAB CO2 22 - 30 mmol/L EXTERNAL LAB CO2 EXTERNAL LAB CALCIUM 8.6 - 10.2 mg/dL EXTERNAL LAB CALCIUM EXTERNAL LAB BUN 6 - 20 mg/dL EXTERNAL LAB BUN EXTERNAL LAB CREATININE 0.51 - 0.95 mg/dL EXTERNAL LAB CREATININE EXTERNAL LAB GLUCOSE 65 - 99 mg/dL EXTERNAL LAB GLUCOSE EXTERNAL LAB TOTAL PROTEIN 6.3 - 8.6 g/dL EXTERNAL LAB TOTAL PROTEIN EXTERNAL LAB ALBUMIN 3.4 - 4.8 g/dL EXTERNAL LAB ALBUMIN EXTERNAL LAB BILIRUBIN TOTAL mg/dL EXTERNAL LAB BILIRUBIN TOTAL EXTERNAL LAB ALKALINE PHOSPHATASE 35 - 104 U/L EXTERNAL LAB ALKALINE PHOSPHATASE EXTERNAL LAB AST U/L EXTERNAL LAB AST EXTERNAL LAB ALT 0 - 31 U/L EXTERNAL LAB ALT EXTERNAL LAB GFR, 60 mL/min/1.7 3 sq meter EXTERNAL LAB GFR, EXTERNAL LAB GFR 60 mL/min/1.7 3 sq meter EXTERNAL LAB GFR EXTERNAL LAB ANION GAP mmol/L EXTERNAL LAB OSMOLALITY, CALCULATED EXTERNAL LAB BUN/CREAT RATIO EXTERNAL LAB ALBUMIN/GLOBULIN RATIO EXTERNAL LAB GLOBULIN (CALC) g/dL EXTERNAL LAB GLOBULIN EXTERNAL LAB RESULT COMMENT, CHEMISTRY EXTERNAL LAB ALWAYS MESSAGE EXTERNAL LAB Blood Abstract Provider CHEMISTRY ORDERABLES EXTERNAL LAB documented in this encounter Visit Diagnoses Not on filedocumented in this encounter Care Teams Flat Knitter Relationship Specialty Start Date End Date Adalberto Morgan MD PCP - General Internal Medicine 12/19/15 05/01/22 documented as of this encounter
--- OUTSIDE RECORDS SUMMARY | 2024-06-18 17:03 | XMS_ITS | Encounter Summary ---
Author Organization [facility] Address [address] [place] [address] Care Team Providers Care Manager Of Recruiting Name Role Phone Adalberto Morgan MD Primary Care Provider [phone] Reason for Referral * Outpatient Services (Urgent) - Closed Specialty Diagnoses / Procedures Referred By Contromi t Referred To Contact Diagnoses Edema, unspecified type Procedures US VENOUS DOPPLER LEG RIGHT Adalberto Morgan MD [address] [place] [phone] [place] [address] Referral ID Status Reason Start Date Expiration Date V isits Requested Visits Authorized [id number] Closed [facility] CTS 12/28/2015 01/27/2017 1 1 Reason for Visit * Reason Comments Establish Care new patient Other nephrotic syndrome ER Follow Up [facility] last week 12/19/2015 Weight Gain do to Nephrotic Shortness of Breath do to Nephrotic synd lyudmila Encounter Details Date Type Department Care Team (Late st Contact Info) Description 12/28/2015 11:45 AM CDT Office Visit [facility] Internal Medicine [address] [address] Adalberto Morgan MD [address] [place] [address] [address] [place] [address] Routine general medical examination at [...] pnvx, flu vac, when off prednisone Sees well testing operator Stress issues ok PLAN: Orders Placed [...] Morgan MD CHEMISTRY ORDERABLES Performing Organization Address [facility] de Phone Number EXTERNAL LAB * (ABNORMAL) VITAMIN D 25 HYDROXY (01/06/2016 11:41 AM CDT) VITAMIN D, 25 OH, TOTAL 10(A) 30 - 80 EXTERNAL LAB VITAMIN D, 25 OH, D2 EXTERNAL LAB VITAMIN D, 25 OH, D3 EXTERNAL LAB Blood specimen (specimen) 01/06/2016 11:41 AM CDT Adalberto Morgan MD CHEMISTRY ORDERABLES Performing Organization Address [facility] de Phone Number EXTERNAL LAB * T4 FREE (01/06/2016 11:41 AM CDT) T4 FREE 1.40 0.80 - 1.80 ng/dL EXTERNAL LAB Blood specimen (specimen) 01/06/2016 11:41 AM CDT Adalberto Morgan MD CHEMISTRY ORDERABLES Performing Organization Address [facility] Co de Phone Number EXTERNAL LAB * TSH (01/06/2016 11:41 AM CDT) TSH 1.47 0.30 - 5.00 uIU/mL EXTERNAL LAB Blood specimen (specimen) 01/06/2016 11:41 AM CDT Adalberto oMrgan MD CHEMISTRY ORDERABLES Performing Organization Address City/[facility] Co de Phone Number EXTERNAL LAB * [...] Morgan MD CHEMISTRY ORDERABLES Performing Organization Address [facility] Co de Phone Number EXTERNAL LAB * [...] type documented in this encounter Care Teams Manager Of Recruiting Relationship Specialty Start Date End Date Adalberto Morgan MD PCP - General Internal Medicine 12/19/15 05/01/22 documented as of this encounter
--- OUTSIDE RECORDS SUMMARY | 2024-06-18 17:03 | XMS_ITS | Encounter Summary ---
Author Organization Address [address] [place] [address] Care Team Providers Care Deputy Coroner Name Role Phone Adalberto Morgan MD Primary Care Provider [phone] Reason for Referral * Outpatient Services (Routine) - Closed Specialty Diagnoses / Procedures Referred By Catracho aguilar Referred To Contact Neurology Diagnoses Idiopathic peripheral neuropathy Procedures EMG WITH NERVE CONDUCTION Adalberto Morgan MD [address] [place] [phone] Rhoda Mckeon MD [address] [place] [address] Referral ID Status Reason Start Date Expiration Date V isits Requested Visits Authorized [id number] Closed [facility] CTS 09/05/2017 10/06/2018 1 1 Reason for Visit * Reason Comments Depression Peripheral Neuropathy Encounter Details Date Type Department Care Team (Late st Contact Info) Description 09/05/2017 3:30 PM CDT Office Visit [facility] Internal Medicine [address] [address] Adalberto Morgan MD [address] [place] [phone] Routine general medical examination at health [...] - 09/05/2017 4:18 PM CDT Subjective: Rhonda Devlni is a 36 y.o. female. Mood ok Stress better not working at [employer] Some marital issues Still hand numbness Feet better with b12 Renal no change Edema ok Patient Active Problem List Diagnosis Date Noted ??? Nephrotic syndrome 12/28/2015 Overview Note: F/u with mechanical unit repairer q 3 months. ??? Edema 12/28/2015 Med [...] Mckeon MD - 09/25/2017 12:54 AM CDT [place], [place] [address] EMG/NCS CSN: [id number] DATE OF SERVICE: 09/24/2017 BRIEF HISTORY 36-year-old [...] neuropathies in the bilateral upper limbs. [place]:MEDQ DID:[id number] Dictated by: Rhoda Mckeon M.D. cc: Adalberto Morgan MD Adalberto Morgan MD NEUROLOGY ORDERABLES [facility] documented in this encounter Visit Diagnoses Diagnosis Routine general medical examination at health care facility- Primary Routine general medical examination at a [facility] care facility Nephrotic syndrome Nephrotic syndrome with unspecified pathological lesion in kidney Generalized edema Edema Idiopathic peripheral neuropathy Unspecified hereditary and idiopathic peripheral neuropathy Idiopathic peripheral neuropathy Unspecified hereditary and idiopathic peripheral neuropathy documented in this encounter Care Teams Deputy Coroner Relationship Specialty Start Date End Date Adalberto Morgan MD PCP - General Internal Medicine 12/19/15 05/01/22 documented as of this encounter
--- OUTSIDE RECORDS SUMMARY | 2024-06-18 17:03 | XMS_ITS | Encounter Summary ---
Author Organization [facility] Address [address] [place] [address] Care Team Providers Care Bullet Swaging Machine Operator Name Role Phone Adalberto Morgan MD Primary Care Provider [phone] Reason for Visit * Reason Onset Date Comments Results 12/28/2015 Encounter Details Date Type Department Care Team (Late st Contact Info) Description 12/28/2015 Telephone [facility] Internal Medicine [address] [address] Adalberto Morgan MD [address] [place] [phone] Results Social History Tobacco Use Types [...] on filedocumented in this encounter Care Teams Bullet Swaging Machine Operator Relationship Specialty Start Date End Date Adalberto Morgan MD PCP - General Internal Medicine 12/19/15 05/01/22 documented as of this encounter
--- OUTSIDE RECORDS SUMMARY | 2024-06-18 17:03 | XMS_ITS | Encounter Summary ---
Author Organization [facility] Address [address] [place] [address] Care Team Providers Care Mechanical Ordnance Assembler Name Role Phone Adalberto Morgan MD Primary Care Provider [phone] Encounter Details Date Type Department Care Team (Late st Contact Info) Description 01/10/2016 Orders Only [facility] Internal Medicine [address] [address] Adalberto Morgan MD [address] [place] [phone] Nephrotic syndrome Social History Tobacco Use [...] Morgan MD CHEMISTRY ORDERABLES Performing Organization Address City/[facility]/ZIP Co de Phone Number EXTERNAL LAB * [...] Morgan MD CHEMISTRY ORDERABLES Performing Organization Address [facility] Co de Phone Number EXTERNAL LAB [...] Abstract Provider CHEMISTRY ORDERABLES Performing Organization Address City/[facility]/ZIP Co de Phone Number [facility]# [id number] [address] [place] [phone] documented in this encounter Visit Diagnoses Diagnosis Nephrotic syndrome Nephrotic syndrome with unspecified pathological lesion in kidney documented in this encounter Care Teams Mechanical Ordnance Assembler Relationship Specialty Start Date End Date Adalberto Morgan MD PCP - General Internal Medicine 12/19/15 05/01/22 documented as of this encounter
== END 2024-06-18 18:20 | disposition short-term general hospital (02) | DRG 356 ==
LOC: ANHED 16:23 → ANH2MED 19:19
PROVIDERS: Anesthesiology; Emergency Medicine; Internal Medicine; Internal Medicine Gastroenterology; Nurse Practitioner; Nurse Practitioner Gerontology; Physician Assistant; Student in an Organized Health Care Education/Training Program; Surgery; Admitting Provider Internal Medicine; Emergency Provider Nurse Practitioner Family; Visit Provider Internal Medicine
PROC: 0FT44ZZ Resection of Gallbladder, Percutaneous Endoscopic Approach (ICD-10-PCS; CPT 47562; principal; 2024-06-09 17:30)
PROC: 0FD98ZX Extraction of Common Bile Duct, Via Natural or Artificial Opening Endoscopic, Diagnostic (ICD-10-PCS; CPT 43260; principal; 2024-06-10 15:45)
DX: K91.89 Other postprocedural complications and disorders of digestive system (principal); K85.81 Other acute pancreatitis with uninfected necrosis; K80.71 Calculus of gallbladder and bile duct without cholecystitis with obstruction; E87.1 Hypo-osmolality and hyponatremia; J90 Pleural effusion, not elsewhere classified; J98.11 Atelectasis; K83.8 Other specified diseases of biliary tract; E87.6 Hypokalemia; R74.01 Elevation of levels of liver transaminase levels; R00.1 Bradycardia, unspecified
CPT/HCPCS: 36415; 36600; 71045; 71046; 71275; 74018; 74177; 74183; 74300; 74329; 76376; 76705; 80048; 80053; 80076; 80202; 81001; 82140; 82805; 83605; 83690; 83735; 84100; 84132; 84443; 84450; 84460; 84484; 85018; 85025; 85027; 85610; 85730; 86850; 86900; 86901; 87040; 87635; 87637; 87641; 88304; 93005; 93306; 94640; 94762; 96374; 96375; 99285; A9270; A9577; G0378; J0171; J0330; J0690; J0692; J1100; J1200; J1741; J1836; J1940; J1956; J2003; J2060; J2250; J2270; J2405; J2704; J3010; J3250; J3370; J3475; J3480; J7030; J7040; J7120; Q9966; Q9967

== ENCOUNTER 2024-07-02 18:34 | Inpatient (IN) | payer OTHER, SELFPAY ==
--- NOTE | ~2024-07-02 | CT_ITS ---
EXAMINATION: CT abdomen pelvis w con DATE: 07/10/2024 09:54 INDICATION: Right upper quadrant abdominal pain. Right flank pain. TECHNIQUE: Computed tomography (CT) of the abdomen and pelvis was performed with 100 mL Omnipaque-350 intravenous contrast. Automated exposure control and iterative reconstruction technique were employe d. The dose-length product was 372.50 mGy-cm. COMPARISON: 07/02/2024 FINDINGS: Small bilateral posterior layering pleural effusions, left greater than right with associated depende nt atelectasis in the bilateral lower lobes. There is some central decreased attenuation within the c ollapsed portion of the left lower lobe which suggests possible superimposed pneumonia. Heart size is normal. No pericardial effusion. Weighted tip enteric feeding tube extends to the stomach and duoden um with distal tip in the region of the ligament of Treitz. Cholecystectomy clips the gallbladder fossa. Mild splenomegaly. Bilateral adrenal glands and kidneys are normal. Again seen is a large rim-enhancing multilobulated peripancreatic fluid collection which extends into the brenna hepatis and gallbladder fossa, caudally along the central mesentery and along the left and right paracolic gutters. On the left the craniocaudal extent measures approximately 22.7 cm. The collection appears slightly decreased in size with the collection positioned in the left upp er quadrant along the inferior margin of the pancreas currently measuring 10.7 x 6.2 cm, previously 1 4.8 x 8.9 cm. There is an additional small amount of scattered nonloculated ascites in the abdomen an d pelvis. There is homogeneous pancreatic parenchymal enhancement with no evident necrosis. Bladder, uterus and right adnexa are unremarkable. 3.3 cm left adnexal cyst. Fluid throughout the colon consis tent with nonspecific diarrhea. No bowel obstruction. There is mild likely reactive mesenteric lympha denopathy. Bones are unremarkable. IMPRESSION: 1. 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 2. Enteric feeding tube in expected position with distal tip in the small bowel near the ligament of Treitz. Line 3. Additional small amount of nonloculated ascites in the abdomen and pelvis. 4. Fluid throughout the colon consistent with nonspecific diarrhea. 5. Unchanged 3.3 cm left adnexal cyst. Reviewed, dictated and finalized at location B. LER HELPER IMPRESSION: 1. 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 2. Enteric feeding tube in expected position with distal tip in the small bowel near the ligament of Treitz. Line 3. Additional small amount of nonloculated ascites in the abdomen and pelvis. 4. Fluid throughout the colon consistent with nonspecific diarrhea. 5. Unchanged 3.3 cm left adnexal cyst.
--- NOTE | ~2024-07-02 | XR_ITS ---
XR chest PICC line Ordering provider: ROSHAN Matthew History: 43 years Female with . Verify PICC placement RIGHT SIDE . Comparison: July 09, 2024 FINDINGS: MEDIASTINUM: The cardiac silhouette is not enlarged. Right PICC line with the tip overlying superior vena cava. Nasogastric tube is seen with the tip in t he fourth part of the duodenum. LUNGS: No pneumothorax. Opacification in the left lower lobe is seen suggestive of atelectasis versus pneumonia. Left pleural effusion is possible. OTHER: No free air under the diaphragm. IMPRESSION: Left basilar atelectasis versus pneumonia. Reviewed, dictated and finalized at location A. FACTURING QUALITY ENGINEER
--- NOTE | ~2024-07-02 | XR_ITS ---
XR chest PICC line Ordering provider: Christie Marte PA-C History: 43 years Female with . PICC placement . Comparison: June 14, 2024 FINDINGS: Nasogastric tube is projected over the chest and upper abdomen with the tip in the fourth part of the duodenum. MEDIASTINUM: The cardiac silhouette is not enlarged. LUNGS: No pneumothorax. Opacification in the left lower lobe is seen suggestive of atelectasis versus pneumonia. OTHER: No free air under the diaphragm. IMPRESSION: Left lower lobe pneumonia. Reviewed, dictated and finalized at location A. OCOPYING EQUIPMENT MECHANIC IMPRESSION: Left lower lobe pneumonia.
--- NOTE | ~2024-07-02 | CT_ITS ---
EXAMINATION: CT abdomen pelvis w con DATE: 07/02/2024 23:37 INDICATION: Abdominal pain TECHNIQUE: Computed tomography (CT) of the abdomen and pelvis was performed with 100 mL Omnipaque-350 intravenous contrast. Automated exposure control and iterative reconstruction technique were employe d. The dose-length product was 445.40 mGy-cm. COMPARISON: 06/17/2024. FINDINGS: Lower thorax: Left basilar atelectasis. Small left pleural effusion. Trace pericardial fluid. Liver: Normal. Biliary/Gallbladder: Gallbladder is absent. Minimal intrahepatic duct dilation. Increased fluid in th e gallbladder fossa. No extrahepatic duct dilation. Pancreas: Large multilobulated peripancreatic fluid collection with rim enhancement, extending into t he gallbladder fossa, the central mesentery, and the bilateral paracolic gutters, increased in size. Spleen: Normal. Adrenals:No mass. Kidneys: No suspicious mass, obstructing stone, or hydronephrosis. GI tract: A feeding tube terminates in the lateral portion of the duodenum. No small or large bowel d ilation. Normal appendix. Mesentery/Peritoneum: Extensive spread of the pancreatic collection is noted above. No free air. Mult iple enlarged mesenteric lymph nodes. Retroperitoneum: No mass. The superior mesenteric artery and vein and portal vein are encased and luis carlos rowed by the peripancreatic fluid collection but remain patent. No pseudoaneurysm detected. Pelvis: Stable simple appearing left ovarian cyst. Small volume free fluid in the deep pelvis. Normal -appearing uterus. Mostly empty urinary bladder. Soft Tissues: Soft tissues and body wall unremarkable. Bones: No acute osseous finding. IMPRESSION: Small left pleural effusion. Trace pericardial effusion. Minimal intrahepatic bile duct dilation, probably secondary to cholecystectomy, correlate with liver enzymes. Large peripancreatic fluid collection, increased in size, extending into the gallbladder fossa, centr al mesentery, and bilateral paracolic gutters, likely representing walled off necrosis. Mesenteric lymphadenopathy. Reviewed, dictated and finalized at location K. S COACH IMPRESSION: Small left pleural effusion. Trace pericardial effusion. Minimal intrahepatic bile duct dilation, probably secondary to cholecystectomy, correlate with liver enzymes. Large peripancreatic fluid collection, increased in size, extending into the ga llbladder fossa, central mesentery, and bilateral paracolic gutters, likely rep resenting walled off necrosis. Mesenteric lymphadenopathy.
[2024-07-02 18:52] VITALS: BP 118/82; PULSE 87; RESP 16; TEMP 36.5; O2SAT 99
[2024-07-02 21:41] LABS: Basophils Absolute Auto 0.1 K/mm3 (0.0-0.1); Basophils Percent Auto 0.3 % (0.2-1.2); Eosinophils Absolute Auto 0.1 K/mm3 (0-0.3); Eosinophils Percent Auto 0.3 % (0-4.4); Hematocrit 36.6 % (37.0-47.0); Hemoglobin 12.1 g/dL (12.0-15.0); Immature Granulocyte Absolute 0.26 K/mm3 (0.00-0.031); Immature Granulocyte Percent A 0.8 % (0-0.5); Lymphocytes Absolute Auto 0.81 K/mm3 (0.9-3.2); Lymphocytes Percent Auto 2.6 % (18.3-44.2); Mean Corpuscular HGB Conc 33.1 g/dl (32-36); Mean Corpuscular Hemoglobin 29.6 pg (26-34); Mean Corpuscular Volume 89.5 fl (80-100); Mean Platelet Volume 9.2 fl (7.4-10.4); Monocytes Absolute Auto 0.8 K/mm3 (0.1-0.6); Monocytes Percent Auto 2.7 % (2.6-8.5); Neutrophils Absolute Auto 28.8 K/mm3 (1.3-6.7); Neutrophils Percent Auto 93.3 % (45.5-73.1); Platelet Count Result 556 k/mm3 (150-375); Red Blood Count 4.09 M/mm3 (4.2-5.4); Red Cell Distribution Width 13.2 % (11.5-14.5); White Blood Count 30.8 K/mm3 (4.5-10.0)
[2024-07-02 21:56] LABS: Alanine Aminotransferase 57 U/L (6-35); Albumin Level 3.7 g/dL (3.5-5.1); Alkaline Phosphatase 164 U/L (38-126); Anion Gap 10 mmol/L (4-12); Aspartate Amino Transferase 45 U/L (14-36); Bilirubin,Total 1.6 mg/dL (0.2-1.3); Blood Urea Nitrogen 13 mg/dL (7-17); Calcium 9.3 mg/dL (8.4-10.2); Carbon Dioxide 29 mmol/L (22-30); Chloride 96 mmol/L (98-107); Estimated Glomerular Filt Rate > 60; Glucose 141 mg/dL (65-110); Sodium 135 mmol/L (137-145)
[2024-07-02 22:11] LABS: Lipase 3044 U/L (23-300)
[2024-07-02] MEDS: SODIUM CHLORIDE 0.9% IV 1,000 ML 999 ML IV CONT (22:28)
[2024-07-02] MEDS: ONDANSETRON INJ 4 MG/2 ML VIAL IV PUSH (22:29)
[2024-07-02] MEDS: HYDROmorphone HCL INJ (*CRX) 1 MG/ML SYR IV PUSH (22:31)
[2024-07-02 22:37] LABS: BEDSIDEPREGUCG Negative (Negative)
[2024-07-02 22:50] LABS: Add Urine Microscopic? YES; Appearance Urine Cloudy (Clear); Bacteria Urine None Seen /hpf; Bilirubin Urine 2+ (Negative); Blood Urine Trace (Negative); Budding Yeast Urine Present /hpf; Color Urine Dark Yellow (Yellow); Glucose Urine UA Negative (Negative); Ketones Urine 1+ mg/dL (Negative); Leukocyte Esterase Ur Trace LEU/UL (Negative); Need Manual Microscopic Reviewed; Nitrate Urine Negative (Negative); Protein Urine 2+ mg/dL (Negative); Specific Grav Ur 1.031 (1.001-1.035); Squamous Epithelial Cell Urine Moderate /hpf (Few)
[2024-07-03] VITALS (44 sets, daily range): BP systolic 112–126; BP diastolic 71–83; PULSE 82–115; RESP 14–23; O2SAT 95–100
--- NOTE | 2024-07-03 01:54 | ED_ITS ---
HPI - General Adult General Chief complaint: Abdominal Pain Stated complaint: acute pancreatitis/increased pain Time Seen by Provider: 07/02/24 21:55 History of Present Illness HPI narrative: Patient 43-year-old female who presents emergency department with chief complaint of abdominal pain. Patient reports she was recently diagnosed pancreatitis and extended stay in the [facility] patient has a Dobbhoff tube in reports she was discharged home [facility] and reports she was not on any pain medication patient states she has had worsening pain and reports that she is feeling very uncomfortable. Patient denies fever Related Data Home Medications ?Medication ?Instructions ?Recorded ?Confirmed ?Last Taken ?Type No Home Medications 08/06/22 06/08/24 Unknown History Allergies Allergy/AdvReac Type Severity Reaction Status Date / Time ampicillin Allergy Severe Rash Verified 07/02/24 18:40 Review of Systems 2 Review of Systems: A 10 system review of systems was completed on the patient and is negative except for what is stated in the HPI. Nursing and ancillary documentation was reviewed. [facility] Past Medical History Medical History Post-ERCP acute pancreatitis Minimal change disease Nephrotic syndrome Proteinuria Surgical History Surgical History History of biopsy of kidney Social History Social History Social History: Surrogate medical decision maker: Lobito Devlin, spouse. Code status: Full code. Smoking status: Never smoker Alcohol intake: current Drinks per week: 1 Substance use: never Do You Feel Safe in your Home?: Yes Lack of Transportation: No Lack of Food: Never True Current Housing: I Have Housing Concerned About Future Housing: No Difficulty Paying Gas/Electric Bills: No Difficulty Paying for Meds: No Currently Unemployed: No Education: Associate Degree Difficulty w/ Childcare or Family Care: No Spiritual care concerns: No Exam 2 Narrative: GENERAL: Well-appearing, well-nourished, and in no acute distress. HEAD: Normocephalic, atraumatic. EYES: PERRLA and EOMI. ENT: Nares clear, no rhinorrhea or epistaxis. Mucous membranes moist. Dobbhoff tube present NECK: Supple. CHEST: Clear to auscultation. No respiratory distress. HEART: Regular rate and rhythm. No murmur heard. Normal peripheral pulses. ABDOMEN: Soft, diffuse tenderness to palpation, nondistended, normal active bowel sounds. EXTREMITIES: Normal range of motion. No edema. SKIN: Warm, dry, no rash. NEURO: No focal deficits. Alert and oriented x3. PSYCH: Normal mood and affect. Course Vital Signs Vital signs: Vital Signs Temperature 36.5 C 07/02/24 18:52 Pulse Rate 87 07/02/24 18:52 Respiratory Rate 16 07/02/24 18:52 Blood Pressure 118/82 07/02/24 18:52 Pulse Oximetry 99 07/02/24 18:52 Oxygen Delivery Room Air 07/02/24 18:52 Temperature 36.5 C 07/02/24 18:52 Pulse Rate 104 H 07/03/24 01:05 Respiratory Rate 20 07/03/24 01:05 Blood Pressure 117/82 07/03/24 01:05 Pulse Oximetry 98 07/03/24 01:05 Oxygen Delivery Room Air 07/02/24 18:52 Medical Decision Making MDM Narrative Medical decision making narrative: Differential diagnosis includes worsening pancreatitis, abdominal pain, Laboratory studies showed a white count 30.8 electrolytes showed a bilirubin 1.6 AST and ALT were slightly elevated at 45 and 57 lipase was 3044 Urinalysis showed no evidence UTI CT scan of the abdomen pelvis showed Small left pleural effusion. Trace pericardial effusion. Minimal intrahepatic bile duct dilation, probably secondary to cholecystectomy, correlate with liver enzymes. Large peripancreatic fluid collection, increased in size, extending into the gallbladder fossa, central mesentery, and bilateral paracolic gutters, likely representing walled off necrosis. Mesenteric lymphadenopathy. The case was discussed with the [facility] transfer [facility] Dr. Winn and Dr Dover accepted the patient Vital Signs Vital Signs: Vital Signs Temperature 36.5 C 07/02/24 18:52 Pulse Rate 87 07/02/24 18:52 Respiratory Rate 16 07/02/24 18:52 Blood Pressure 118/82 07/02/24 18:52 Pulse Oximetry 99 07/02/24 18:52 Oxygen Delivery Room Air 07/02/24 18:52 Temperature 36.5 C 07/02/24 18:52 Pulse Rate 104 H 07/03/24 01:05 Respiratory Rate 20 07/03/24 01:05 Blood Pressure 117/82 07/03/24 01:05 Pulse Oximetry 98 07/03/24 01:05 Oxygen Delivery Room Air 07/02/24 18:52 Lab Data 07/02/24 21:30 07/02/24 21:30 Labs: Lab Results 07/02/24 07/02/24 07/02/24 Range/Units 21:30 22:27 22:35 WBC 30.8 H (4.5-10.0) K/mm3 RBC 4.09 L (4.2-5.4) M/mm3 Hgb 12.1 (12.0-15.0) g/dL Hct 36.6 L (37.0-47.0) % MCV 89.5 (80-100) fl MCH 29.6 (26-34) pg MCHC 33.1 (32-36) g/dl RDW 13.2 (11.5-14.5) % Plt Count 556 H D (150-375) k/mm3 MPV 9.2 (7.4-10.4) fl Immature Gran % (Auto) 0.8 H (0-0.5) % Neut % (Auto) 93.3 H (45.5-73.1) % Lymph % (Auto) 2.6 L (18.3-44.2) % [place] % (Auto) 2.7 (2.6-8.5) % Eos % (Auto) 0.3 (0-4.4) % Baso % (Auto) 0.3 (0.2-1.2) % Lymph # (Auto) 0.81 L (0.9-3.2) K/mm3 [place] # (Auto) 0.8 H (0.1-0.6) K/mm3 Eos # (Auto) 0.1 (0-0.3) K/mm3 Baso # (Auto) 0.1 (0.0-0.1) K/mm3 Abs Immat Gran (auto) 0.26 H (0.00-0.031) K/mm3 Absolute Neuts (auto) 28.8 H (1.3-6.7) K/mm3 Absolute Nucleated RBC 0.000 (0.0-0.012) K/mm3 Nucleated RBC % 0.0 (0.0-0.2) % Sodium 135 L (137-145) mmol/L Potassium 4.0 (3.4-5.0) mmol/L Chloride 96 L (98-107) mmol/L Carbon Dioxide 29 (22-30) mmol/L Anion Gap 10 (4-12) mmol/L BUN 13 (7-17) mg/dL Creatinine 0.67 L (0.7-1.0) mg/dL Estim Creat Clear Calc Not Reportable Estimated GFR > 60 (59 - ) Glucose 141 H (65-110) mg/dL Calcium 9.3 (8.4-10.2) mg/dL Total Bilirubin 1.6 H (0.2-1.3) mg/dL AST 45 H (14-36) U/L ALT 57 H (6-35) U/L Alkaline Phosphatase 164 H (38-126) U/L Total Protein 9.0 H (6.3-8.2) g/dL Albumin 3.7 (3.5-5.1) g/dL Lipase 3044 H (23-300) U/L Urine Color Dark yellow (Yellow) Urine Appearance Cloudy H (Clear) Urine pH 5.0 (5.0-9.0) Ur Specific [place] 1.031 (1.001-1.035) Urine Protein 2+ H (Negative) mg/dL Urine Glucose (UA) Negative (Negative) mg/dL Urine Ketones 1+ H (Negative) mg/dL Ur Blood (Man) Trace (Negative) Urine Nitrate Negative (Negative) Urine Bilirubin 2+ H (Negative) Urine Urobilinogen 1.0 (<2.0) mg/dL Add Ur Microanalysis Reviewed Leukocyte Esterase Rfl Trace H (Negative) PATRICA/UL Urine RBC 3-5 H (0-2) /hpf Urine WBC 6-10 H (0-3) /hpf Ur Squamous Epith Cells Moderate (Few) /hpf Urine Bacteria None seen /hpf Urine Casts 3-5 Urine Yeast (Budding) Present H (None) /hpf POC Urine HCG, Qual Negative (Negative) Discharge Plan Discharge Clinical Impression: Pancreatitis Patient Disposition: Acute Care Hospital Condition: Stable Instructions: Antibiotic Form Patient Language: Divehi Prescriptions: No Action No Home Medications Follow-up/Referrals: Jason,Basilia Irene MD [Primary Care Provider] -
[2024-07-03] MEDS: SODIUM CHLORIDE 0.9% IV 1,000 ML 125 ML IV CONT ×3 (03:03→17:27)
[2024-07-03] MEDS: HYDROmorphone HCL INJ (*CRX) 1 MG/ML SYR IV PUSH ×5 (03:05→21:03)
[2024-07-03] MEDS: ONDANSETRON INJ 4 MG/2 ML VIAL IV PUSH ×5 (03:09→21:03)
--- NOTE | 2024-07-03 07:52 | PC.NURSE ---
Contacted phlebotomy for assistance with difficult draw for blood cultures and lactic acid.
[2024-07-03 09:35] LABS: Lactic Acid Reflex 0.6 mmol/L (0.7-2.0)
[2024-07-03] MEDS: CEFEPIME 2 GM/NS 50 ML 2 GM/50 ML BAG IVPB ×2 (09:56→17:27)
[2024-07-03] MEDS: metroNIDAZOLE 500 MG/ISO 100ML 500 MG/100 ML BAG 100 MG IVPB ×2 (10:44→18:08)
[2024-07-04] VITALS (44 sets, daily range): BP systolic 110–131; BP diastolic 68–86; PULSE 96–115; RESP 11–28; TEMP 36.5–36.8; O2SAT 88–100
[2024-07-04] MEDS: ONDANSETRON INJ 4 MG/2 ML VIAL IV PUSH ×6 (01:15→23:49)
[2024-07-04] MEDS: CEFEPIME 2 GM/NS 50 ML 2 GM/50 ML BAG IVPB ×3 (01:15→17:36)
[2024-07-04] MEDS: HYDROmorphone HCL INJ (*CRX) 1 MG/ML SYR IV PUSH ×6 (01:16→23:49)
[2024-07-04] MEDS: SODIUM CHLORIDE 0.9% IV 1,000 ML 125 ML IV CONT ×3 (01:54→17:37)
[2024-07-04] MEDS: metroNIDAZOLE 500 MG/ISO 100ML 500 MG/100 ML BAG 100 MG IVPB ×3 (01:54→17:37)
--- NOTE | 2024-07-04 07:51 | PC.NURSE ---
pt placed in hospital bed
[2024-07-04 08:07] LABS: Basophils Absolute Auto 0.1 K/mm3 (0.0-0.1); Basophils Percent Auto 0.3 % (0.2-1.2); Eosinophils Absolute Auto 0.1 K/mm3 (0-0.3); Eosinophils Percent Auto 0.8 % (0-4.4); Hematocrit 29.5 % (37.0-47.0); Hemoglobin 9.4 g/dL (12.0-15.0); Immature Granulocyte Absolute 0.12 K/mm3 (0.00-0.031); Immature Granulocyte Percent A 0.7 % (0-0.5); Lymphocytes Absolute Auto 0.97 K/mm3 (0.9-3.2); Lymphocytes Percent Auto 5.4 % (18.3-44.2); Mean Corpuscular HGB Conc 31.9 g/dl (32-36); Mean Corpuscular Hemoglobin 30.2 pg (26-34); Mean Corpuscular Volume 94.9 fl (80-100); Mean Platelet Volume 9.4 fl (7.4-10.4); Monocytes Absolute Auto 0.8 K/mm3 (0.1-0.6); Monocytes Percent Auto 4.3 % (2.6-8.5); Neutrophils Absolute Auto 15.7 K/mm3 (1.3-6.7); Neutrophils Percent Auto 88.5 % (45.5-73.1); Platelet Count Result 300 k/mm3 (150-375); Red Blood Count 3.11 M/mm3 (4.2-5.4); Red Cell Distribution Width 13.4 % (11.5-14.5); White Blood Count 17.8 K/mm3 (4.5-10.0)
[2024-07-04 09:03] LABS: Alanine Aminotransferase 28 U/L (6-35); Albumin Level 2.8 g/dL (3.5-5.1); Alkaline Phosphatase 111 U/L (38-126); Anion Gap 10 mmol/L (4-12); Aspartate Amino Transferase 30 U/L (14-36); Bilirubin,Total 1.2 mg/dL (0.2-1.3); Blood Urea Nitrogen 11 mg/dL (7-17); Calcium 8.3 mg/dL (8.4-10.2); Carbon Dioxide 21 mmol/L (22-30); Chloride 107 mmol/L (98-107); Estimated Glomerular Filt Rate > 60; Glucose 82 mg/dL (65-110); Lipase 901 U/L (23-300); Potassium 3.8 mmol/L (3.4-5.0); Sodium 138 mmol/L (137-145)
--- NOTE | 2024-07-04 22:48 | PC.NURSE ---
patient able to ambulate with a steady unassisted gait to the bathroom
[2024-07-05] VITALS (11 sets, daily range): BP systolic 123–134; BP diastolic 76–87; PULSE 80–106; RESP 14–18; TEMP 36.5–36.7; O2SAT 95–100; BMI 29.9
[2024-07-05] MEDS: SODIUM CHLORIDE 0.9% IV 1,000 ML 125 ML IV CONT ×3 (04:31→19:06)
[2024-07-05] MEDS: HYDROmorphone HCL INJ (*CRX) 1 MG/ML SYR IV PUSH ×5 (04:31→22:24)
[2024-07-05] MEDS: ONDANSETRON INJ 4 MG/2 ML VIAL IV PUSH ×2 (04:31→18:23)
[2024-07-05] MEDS: CEFEPIME 2 GM/NS 50 ML 2 GM/50 ML BAG IVPB ×3 (04:36→18:23)
[2024-07-05] MEDS: metroNIDAZOLE 500 MG/ISO 100ML 500 MG/100 ML BAG 100 MG IVPB ×3 (05:12→19:07)
--- NOTE | 2024-07-05 05:52 | PC.NURSE ---
bedside commode placed in patient room per patient request.
[2024-07-05 13:01] LABS: Basophils Absolute Auto 0.1 K/mm3 (0.0-0.1); Basophils Percent Auto 0.3 % (0.2-1.2); Eosinophils Absolute Auto 0.2 K/mm3 (0-0.3); Eosinophils Percent Auto 1.3 % (0-4.4); Hematocrit 26.6 % (37.0-47.0); Hemoglobin 8.4 g/dL (12.0-15.0); Immature Granulocyte Absolute 0.11 K/mm3 (0.00-0.031); Immature Granulocyte Percent A 0.7 % (0-0.5); Lymphocytes Absolute Auto 0.85 K/mm3 (0.9-3.2); Lymphocytes Percent Auto 5.6 % (18.3-44.2); Mean Corpuscular HGB Conc 31.6 g/dl (32-36); Mean Corpuscular Hemoglobin 29.9 pg (26-34); Mean Corpuscular Volume 94.7 fl (80-100); Mean Platelet Volume 9.4 fl (7.4-10.4); Monocytes Absolute Auto 0.6 K/mm3 (0.1-0.6); Monocytes Percent Auto 3.7 % (2.6-8.5); Neutrophils Absolute Auto 13.5 K/mm3 (1.3-6.7); Neutrophils Percent Auto 88.4 % (45.5-73.1); Nucleated Red Blood Cells Perc 0.1 % (0.0-0.2); Platelet Count Result 235 k/mm3 (150-375); Red Blood Count 2.81 M/mm3 (4.2-5.4); White Blood Count 15.3 K/mm3 (4.5-10.0)
[2024-07-05 13:21] LABS: Alanine Aminotransferase 19 U/L (6-35); Albumin Level 2.5 g/dL (3.5-5.1); Alkaline Phosphatase 86 U/L (38-126); Anion Gap 7 mmol/L (4-12); Aspartate Amino Transferase 28 U/L (14-36); Bilirubin,Total 0.9 mg/dL (0.2-1.3); Blood Urea Nitrogen 6 mg/dL (7-17); Calcium 7.9 mg/dL (8.4-10.2); Carbon Dioxide 20 mmol/L (22-30); Chloride 108 mmol/L (98-107); Estimated Glomerular Filt Rate > 60; Glucose 78 mg/dL (65-110); Lipase 674 U/L (23-300); Potassium 3.3 mmol/L (3.4-5.0); Sodium 135 mmol/L (137-145)
--- NOTE | 2024-07-05 18:10 | P.HP_ITS ---
H&P: HPI History of Present Illness Date/Time: 07/05/24 18:10 Chief Complaint: Abdominal pain. Narrative: This is a 43-year-old female with history of minimal change disease and recent hospitalization for abdominal pain and transaminitis status post cholecystectomy and ERCP complicated by suspected necrotizing pancreatitis for which she was transferred to [facility] who presented to the emergency department in the evening of 07/02/2024 with complaints of severe abdominal pain. The patient provides the following history. She was started on tube feeds although she did not tolerate nasogastric feedings and was discharged with a nasointestinal feeding tube. There were talks of possible percutaneous drainage however she improved with supportive care. She was discharged home on 07/01/2024 and within about 12 hours her pain became acutely worse. She denies fever, chills, sweats, chest pain, shortness of breath, cough, vomiting, diarrhea, and dysuria. In the ED: She has been afebrile since arrival. She was tachycardic on presentation but that has improved with IV fluids and pain control. Initial labs were significant for WBC count of 30.8, hemoglobin 12.1, sodium 135, chloride 96 , BUN 13, creatinine 0.67, glucose 141, lactic acid 0.6, total bilirubin 1.6, AST 45, ALT 57, alkaline phosphatase 164, lipase 3044. CT of the abdomen and pelvis showed a large peripancreatic fluid collection increased in size from prior imaging extending into the gallbladder fossa, central mesentery, bilateral pericolic gutters, likely representing walled-off necrosis. Transfer was initiated to [facility] where she has been accepted however she has been waiting in the emergency department now for 70 hours and she is being admitted to the floor for further care pending bed availability. Over the course of her ED stay, she received IV fluids, antiemetics, and analgesics. She was also started on cefepime and metronidazole. ED physician spoke with Dr. Boothe who recommends resuming her tube feeds as her lipase is improving as is her pain. Review of Systems Review of Systems: 12 systems were reviewed and are negativ e except for as per HPI. [facility] Past Medical History Medical History (Updated 07/05/24 @ 22:04 by Varsha Parrish PA-C) Post-ERCP acute pancreatitis (05/2024) Minimal change disease Nephrotic syndrome Proteinuria Surgical History Surgical History (Updated 07/05/24 @ 22:01 by Varsha Parrish PA-C) History of endoscopic retrograde cholangiopancreatography (05/2024) History of laparoscopic cholecystectomy (05/2024) History of biopsy of kidney Family History Family History Sibling Cerebrovascular accident Grandparent Cerebrovascular accident Grandparent Congestive heart failure Social History Social History Social History: Surrogate medical decision maker: Lobito Devlin, spouse. Code status: Full code. Smoking status: Never smoker Alcohol intake: current Drinks per week: 1 Substance use: never Do You Feel Safe in your Home?: Yes Lack of Transportation: No Lack of Food: Never True Current Housing: I Have Housing Concerned About Future Housing: No Difficulty Paying Gas/Electric Bills: No Difficulty Paying for Meds: No Currently Unemployed: No Education: Associate Degree Difficulty w/ Childcare or Family Care: No Spiritual care concerns: No Meds Home Medications and Allergies Home Medications ?Medication ?Instructions ?Recorded ?Confirmed ?Type No Home Medications 08/06/22 07/04/24 History Allergies Allergy/AdvReac Type Severity Reaction Status Date / Time ampicillin Allergy Severe Rash Verified 07/02/24 18:40 Vital Signs Vital Signs - 24 hr 07/04/24 19:11 07/04/24 23:55 07/05/24 04:29 Pulse Rate 98 109 H Respiratory Rate 16 18 Blood Pressure 116/80 124/73 Pulse Oximetry 99 100 97 07/05/24 04:30 07/05/24 04:31 07/05/24 04:36 Pulse Rate 98 Respiratory Rate 16 Blood Pressure 128/83 128/83 Pulse Oximetry 97 96 100 07/05/24 07:18 07/05/24 07:19 07/05/24 07:19 Pulse Rate 106 H 80 Respiratory Rate 18 14 Blood Pressure 123/78 123/78 Pulse Oximetry 96 96 95 07/05/24 08:55 07/05/24 08:56 07/05/24 18:04 Pulse Rate 100 97 Respiratory Rate 15 16 Blood Pressure 124/78 131/87 Pulse Oximetry 97 95 98 Exam Narrative: General: Moderately ill-appearing female sitting up in bed in no acute distress. Weight: 67.2 kg. BMI: 29.9. HEENT: PERRL, EOMI. Sclera anicteric. Tacky mucous membranes. Nasaointestinal tube in the right naris. Neck: Supple. Respiratory: Lungs are clear to auscultation bilaterally. Cardiovascular: Regular rate and rhythm with S1-S2. Gastrointestinal: Abdomen is soft and slightly distended with hypoactive bowel sounds. She is tender to palpation throughout the abdomen but more so in the upper left quadrant. No guarding or rebound tenderness. Skin: Warm and dry. Extremities: No cyanosis, clubbing, or edema. Radial and pedal pulses intact. Neurological: Alert. Cranial nerves 2-12 are grossly intact. No gross focal deficits to casual conversation. Psychiatric: Pleasant and cooperative with normal mood and flat affect. H&P: Results Labs Labs: Short CBC 07/05/24 Range/Units 12:56 WBC 15.3 H (4.5-10.0) K/mm3 Hgb 8.4 L (12.0-15.0) g/dL Hct 26.6 L (37.0-47.0) % Plt Count 235 (150-375) k/mm3 BMP 07/05/24 12:56 Sodium 135 L Potassium 3.3 L Chloride 108 H Carbon Dioxide 20 L BUN 6 L D Creatinine 0.49 L Glucose 78 Calcium 7.9 L Liver Function 07/05/24 Range/Units 12:56 Total Bilirubin 0.9 (0.2-1.3) mg/dL AST 28 (14-36) U/L ALT 19 (6-35) U/L Alkaline Phosphatase 86 (38-126) U/L Albumin 2.5 L (3.5-5.1) g/dL Imaging Abdomen/Pelvis CT 07/02/24 23:45 IMPRESSION: Small left pleural effusion. Trace pericardial effusion. Minimal intrahepatic bile duct dilation, probably secondary to cholecystectomy, correlate with liver enzymes. Large peripancreatic fluid collection, increased in size, extending into the gallbladder fossa, central mesentery, and bilateral paracolic gutters, likely representing walled off necrosis. Mesenteric lymphadenopathy. Assessment and Plan Assessment and plan (1) Necrotizing pancreatitis: Code(s): K85.91 - Acute pancreatitis with uninfected necrosis, unspecified Status: Acute (2) Normocytic anemia: Code(s): D64.9 - Anemia, unspecified Status: Acute (3) Hypokalemia: Code(s): E87.6 - Hypokalemia Status: Acute Plan The patient presented to the emergency department on 07/02/2023 for evaluation of worsening abdominal pain as detailed in HPI. Labs, imaging, EKG, and all reports were personally reviewed. Her lipase was once again elevated and CT scan showed an increase in peripancreatic fluid with findings suggestive of walled- off necrosis. She has been accepted back at [facility] as she may need this drain however she has been in the emergency department now for nearly 3 days and she is being admitted to the floor for further care and close monitoring pending bed availability. Continue supportive care with IV fluid rehydration and analgesics and antiemetics as needed. She was also started on antibiotics for possible infection which will be continued. Resume tube feeds and trend lipase. Dr. Boothe has graciously agreed to follow the patient while she is here and his input is also appreciated. Check iron studies as well as B12 and folate for evaluation of anemia. Electrolytes will be monitored and replaced as needed. Findings and treatment plan were discussed with the patient. Questions were solicited and answered to satisfaction. The patient's medical management will be taken over by the hospitalist team in a.m. Quality VTE Prophylaxis VTE prophylaxis: mechanical ordered If No VTE Prophylaxis Answer both mechanical and pharmacologic: Reason no pharmacologic proph: medical contraindication (may need procedure) The patient has been admitted under observation status. Hospitalist MIPS Advance Care Plan I have confirmed that the patient's Advanced Care Plan is present, code status is documented, or surrogate decision maker is listed in patient medical record.: Yes Medication Reconciliation I have utilized all available resources to obtain, update and review the patien ts current medications (includes all prescriptions, OTC, herbals, cannabis, and nutritional supplements).: Yes
[2024-07-05 23:14] LABS: Iron 34 ug/dL (37-170)
[2024-07-05 23:15] LABS: Anion Gap 8 mmol/L (4-12); Blood Urea Nitrogen 6 mg/dL (7-17); Calcium 7.6 mg/dL (8.4-10.2); Carbon Dioxide 18 mmol/L (22-30); Chloride 108 mmol/L (98-107); Estimated Glomerular Filt Rate > 60; Glucose 78 mg/dL (65-110); Potassium 3.1 mmol/L (3.4-5.0); Sodium 134 mmol/L (137-145)
[2024-07-05 23:21] LABS: Prealbumin 5.5 mg/dL (17.6-36.0)
[2024-07-05 23:25] LABS: Percent Iron Saturation 22 % (20-50)
[2024-07-06 00:33] LABS: Folic Acid 8.1 ng/mL (2.76->20)
[2024-07-06] MEDS: CEFEPIME 2 GM/NS 50 ML 2 GM/50 ML BAG IVPB ×2 (01:29→11:56)
[2024-07-06] MEDS: HYDROmorphone HCL INJ (*CRX) 1 MG/ML SYR IV PUSH ×5 (02:03→21:02)
[2024-07-06] MEDS: metroNIDAZOLE 500 MG/ISO 100ML 500 MG/100 ML BAG 100 MG IVPB ×2 (02:04→12:36)
[2024-07-06] MEDS: SODIUM CHLORIDE 0.9% IV 1,000 ML 100 ML IV CONT (02:20)
[2024-07-06 06:00] VITALS: BP 126/53; PULSE 105; RESP 18; TEMP 36.4; O2SAT 91
[2024-07-06 06:00] LABS: Hematocrit 32.6 % (37.0-47.0); Hemoglobin 10.1 g/dL (12.0-15.0); Mean Corpuscular Hemoglobin 29.3 pg (26-34); Mean Corpuscular Volume 94.5 fl (80-100); Mean Platelet Volume 9.4 fl (7.4-10.4); Platelet Count Result 379 k/mm3 (150-375); Red Blood Count 3.45 M/mm3 (4.2-5.4); Red Cell Distribution Width 13.1 % (11.5-14.5)
[2024-07-06] MEDS: ONDANSETRON INJ 4 MG/2 ML VIAL IV PUSH (06:03)
[2024-07-06 06:15] LABS: Alanine Aminotransferase 15 U/L (6-35); Albumin Level 2.5 g/dL (3.5-5.1); Alkaline Phosphatase 104 U/L (38-126); Anion Gap 9 mmol/L (4-12); Aspartate Amino Transferase 18 U/L (14-36); Bilirubin,Total 0.6 mg/dL (0.2-1.3); Blood Urea Nitrogen 7 mg/dL (7-17); Calcium 7.5 mg/dL (8.4-10.2); Carbon Dioxide 22 mmol/L (22-30); Chloride 106 mmol/L (98-107); Estimated Glomerular Filt Rate > 60; Glucose 117 mg/dL (65-110); Lipase 419 U/L (23-300); Magnesium 1.9 mg/dL (1.6-2.3); Potassium 2.6 mmol/L (3.4-5.0); Sodium 137 mmol/L (137-145)
[2024-07-06] MEDS: DEXTROSE 5%/0.45% SOD CHL 1,000 ML 65 ML IV CONT ×2 (06:44→21:03)
[2024-07-06] MEDS: POTASSIUM CHLORIDE INJ 40 MEQ in SODIUM CHLORIDE 0.9% IV 500 ML 130 MEQ IVPB (06:52)
[2024-07-06] MEDS: POTASSIUM CHLORIDE 20 MEQ PACKET (FOR LIQUID) 40 MEQ PO (08:08)
--- NOTE | 2024-07-06 10:24 | P.CONGI_ITS ---
<Statement entered by Kyle Boothe MD - 07/06/24 16:08> I, Kyle Boothe MD, have provided a substantive portion of the care of this patient and discussed the patient with my Nurse Practitioner. I have reviewed any new relevant radiographic and laboratory results including medications. I agree with her documentation as noted below.?I personally performed the medical decision making and much of the history and exam for this encounter. briefly, she had cholecystitis s/p lap felicia with stone by [facility] then ERCP with pancreatitis, developed necrotizing pancreatitis and transferred to [facility], had DobbHoff for enteral nutrition and recently sent home. She is here with n/v and discomfort. CT scan with enlarging WON, also hypokalemia. Tube feeding resumed but nauseous. She has been waiting for transfer [facility], will need GI evaluation for potential EUS with drainage of WON Assessment and Plan Assessment and plan (1) Post-ERCP acute pancreatitis: Onset Date: 05/2024 Code(s): K91.89 - Other postprocedural complications and disorders of digestive system; K85.90 - Acute pancreatitis without necrosis or infection, unspecified Status: Acute (2) Necrotizing pancreatitis: Code(s): K85.91 - Acute pancreatitis with uninfected necrosis, unspecified Status: Acute (3) Hyponatremia: Code(s): E87.1 - Hypo-osmolality and hyponatremia Status: Acute (4) Normocytic anemia: Code(s): D64.9 - Anemia, unspecified Status: Acute (5) Nausea and vomiting: Qualifiers: Vomiting type: bilious vomiting Qualified Code(s): R11.14 - Bilious vomiting Code(s): R11.2 - Nausea with vomiting, unspecified Status: Acute (6) Weight loss: Code(s): R63.4 - Abnormal weight loss Status: Acute (7) Appetite loss: Code(s): R63.0 - Anorexia Status: Acute (8) Generalized abdominal pain: Code(s): R10.84 - Generalized abdominal pain Status: Acute Plan 1.Post ERCP necrotizing pancreatitis/ elevated lipase/ nausea and vomiting/ weight loss/ appetite loss/generalized abdominal pain/diarrhea: Patient was recently hospitalized at [facility] June 08 for cholelithiasis and post ERCP pancreatitis. Patient S/P laparoscopic cholecystectomy performed June 08. Patient was transferred for [facility] June 18 for suspected necrotizing pancreatitis and was just discharged July 01 with a Dobbhoff for tube feedings. Patient states that she was discharged without pain medication and the generalized abdominal pain that she has been having since her admission became worse. WBCs on admission 31 which has trended down to 20. Patient has remained afebrile. CT on admission shows large peripancreatic fluid collection, increased in size, extending into the gallbladder fossa, central mesentery, and bilateral paracolic gutters, likely representing walled-off necrosis. Mesenteric lymphadenopathy noted. Lipase is still elevated but trending down since admission 3044-->416. Dobbhoff in place in right nare and received tube feedings last night. She complains of nausea and vomiting that is intermittent in nature. At home she had an episode of nausea and vomiting 3 hours after starting her tube feeding. Patient states that she tolerated her tube feedings well last night but woke up this morning and had a large amount of emesis. She is having generalized abdominal pain that she describes as a sharp pain that more frequently has been occurring down both of her flanks. She admits to an un measured weight loss but gases that is around 10 lb and states that her dysphagia has not improved yet. Prior to admission she was eating only a small amount of oral intake. She is pending transfer back to [facility] as she may require interventional radiology for drainage of noted fluid collection. * patient is on antibiotics, continue * Continue supportive care with antiemetics and pain management * continue IV fluids and tube feedings * transfer to higher level of care once bed is available 2. Hypokalemia/Anemia: H/H was normal on admission. labs today show HGB 10, HCT 33, MCV 95, platelets 379. Potassium at 2.6 and sodium normal at 137. Iron 34, TIBC 158, iron saturation 22, ferritin 454, B12 and folate normal. No signs of GI bleeding. * Primary care team to continue monitoring and correct Thank you for allowing me to share in the care of this very nice patient. This report may have been done utilizing a voice recognition system. Attempts have been made to correct errors. However, there may be uncorrected grammatical, spelling, and recognition errors present. GI Consult Note Consult date/time: 07/06/24 10:24 Reason for consult: Pancreatitis HPI: This is a 43 year old female with PMSH of nephrotic syndrome, recent CCX (06/08/2024) but otherwise unremarkable medical surgical Hx. She presented to the ER 07/02/2024 with complaints of severe abdominal pain. GI has been consulted for pancreatitis. Patient was recently hospitalized at [facility] June 08- for cholelithiasis and post ERCP pancreatitis. Patient S/P laparoscopic cholecystectomy performed June 08. Patient was transferred for [facility] June 18 for suspected necrotizing pancreatitis and was just discharged July 01 with a Dobbhoff for tube feedings. patient states that she has been having chronic generalized abdominal pain anlong with abdominal distension that she describes as a sharp pain that has been more frequent and bilateral flanks. Patient states that she was discharged [facility] without pain medication which made this pain become unbearable at which time she proceeded to our emergency room. She is having intermittent nausea and vomiting that she states started at home approximately 3 hours after starting her tube feeding. Per patient she had tube feedings going last night and tolerated them well but this morning she had a large emesis. She has a Dobbhoff in her right near. patient states she has been eating small amounts of p.o. intake since discharge but states that she still has a poor appetite. She has had an un measured weight loss but estimates that is around 10 lb. She is having loose stools since starting tube feedings and her last bowel movement was last night. She denies bloating, odynophagia, dysphagia, reflux, regurgitation, early satiety, constipation, hematochezia, or melena. She denies any NSAID, aspirin, or anticoagulant use. patient is currently pending transfer back to [facility]. ENDOSCOPY HISTORY: Patient has never had an EGD or colonoscopy ERCP: 06/10/[address] Inman for elevated LFT's and abnormal intraoperative cholangiogram Findings: Ampulla appeared normal with small papillary orifice Opacification of the biliary system was successful. Also noted pancreatic duct and single view, size about 3 mm and did not do any intervention and PD. A sphincterotomy was performed with the device after the guidewire was advanced again into the bile duct. A cannulation procedure was performed with a cannulation device but noted some resistance bile duct but did not find obvious filling defect. A stone extraction was performed with a 9-12 mm balloon catheter. LABS AND STOOL STUDIES: Labs 07/06/2024: Sodium 137, potassium 2.6, BUN 7, creatinine 0.55, GFR > 60. WBC is 20, HGB 10, HCT 33, MCV 95, platelets 379 Total bilirubin 0.6, AST 18, ALT 15, alkaline phosphatase 104, albumin 2.5, lipase 419 Calcium 7.5, magnesium 1.9, iron 34, TIBC 158, iron saturation 22%, ferritin 454, folate 8.1, B12 990, and TSH 3.760 Labs 07/02/2024: Sodium 135, potassium 3.8, BUN 11, creatinine 0.65, GFR > 60. WBC is 31, HGB 12, HCT 37, MCV 90, platelets 556. Total bilirubin 1.6, AST 45, ALT 57, alkaline phosphatase 164, lactic acid 0.6, lipase 3044 IMAGING: CT abd/pelvis w/contrast 07/02/2024 IMPRESSION: Small left pleural effusion. Trace pericardial effusion. Minimal intrahepatic bile duct dilation, probably secondary to cholecystectomy, correlate with liver enzymes. Large peripancreatic fluid collection, increased in size, extending into the gallbladder fossa, central mesentery, and bilateral paracolic gutters, likely representing walled off necrosis. Mesenteric lymphadenopathy. CT abd/pelvis w/contrast 06/17/2024 IMPRESSION: 1. Mild pulmonary edema. 2. Small pleural effusions. 3. Stable findings of acute pancreatitis with peripancreatic necrosis. 4. 3.5 cm cyst in left ovary, likely a follicular cyst. Chest CTA 06/15/2024 IMPRESSION: 1. No pulmonary embolus. 2. Small pleural effusions. 3. Acute interstitial pancreatitis. CT abd/pelvis w/contrast 06/12/2024 Impression: Acute pancreatitis, with significant interval worsening of peripancreatic fluid and inflammatory change, with fluid extending into the right paracolic gutter and pelvis. No pancreatic necrosis or pseudocyst. 3.6 cm left ovarian cyst. [id number] right pleural effusion and small left pleural effusion. Intraoperative cholangiogram 06/08/2024 IMPRESSION: 1. 4 mm stone in the distal common bile duct. 2. Two 3 mm filling defects in the cystic duct which may be gas bubbles or stones. MRCP 06/09/2024 IMPRESSION: 1. Cholelithiasis with 3-4 mm stone in the cystic duct which has a low confluence with the distal common bile duct. No dilation of the gallbladder to suggest a significant obstruction or acute cholecystitis. 2. Mild pulmonary edema, trace bilateral pleural effusions and trace amount of perihepatic and perisplenic ascites. Abdominal Ultrasound 06/08/2024 IMPRESSION: 1. Gallbladder sludge without evident shadowing cholelithiasis over this might be due to the relatively tiny size of the few calcific stone seen on prior CT. 2. Normal proximal common bile duct measurement of 4-5 mm however the more distal duct which was dilated to [address] is obscured. If there is continued clinical concern for biliary obstruction would consider MRCP for further evaluation. Review of Systems 2 Constitutional: Constitutional: Reports as per HPI ENT: Reports as per HPI Cardiovascular: Cardiovascular: Reports as per HPI, Denies chest pain and Denies dyspnea Respiratory: Respiratory: Denies cough and Denies dyspnea Gastrointestinal: Gastrointestinal: Reports as per HPI, Reports abdominal pain, Reports diarrhea, Reports nausea and Reports vomiting Musculoskeletal: Musculoskeletal: Reports as per HPI Integumentary/Breasts: Skin/Breast: Reports as per HPI Psychiatric: Psychiatric: Reports as per HPI Endocrine: Endocrine: Reports no additional endocrine complaints Hematologic/Lymphatic: Hematologic/Lymphatic: Reports no additional hematologic/lymphatic complaints [facility] Past Medical History Medical History (Updated 07/06/24 @ 12:30 by Terri Lugo APRN) Post-ERCP acute pancreatitis (05/2024) Minimal change disease Nephrotic syndrome Proteinuria Surgical History Surgical History (Updated 07/05/24 @ 22:01 by Varsha Parrish PA-C) History of endoscopic retrograde cholangiopancreatography (05/2024) History of laparoscopic cholecystectomy (05/2024) History of biopsy of kidney Family History Family History Sibling Cerebrovascular accident Grandparent Cerebrovascular accident Grandparent Congestive heart failure Social History Social History Social History: Surrogate medical decision maker: Lobito Devlin, spouse. Code status: Full code. Smoking status: Never smoker Alcohol intake: current Drinks per week: 1 Substance use: never Do You Feel Safe in your Home?: Yes Lack of Transportation: No Lack of Food: Never True Current Housing: I Have Housing Concerned About Future Housing: No Difficulty Paying Gas/Electric Bills: No Difficulty Paying for Meds: No Currently Unemployed: No Education: Associate Degree Difficulty w/ Childcare or Family Care: No Spiritual care concerns: No Meds Home Medications and Allergies Home Medications ?Medication ?Instructions ?Recorded ?Confirmed ?Type No Home Medications 08/06/22 07/04/24 History Allergies Allergy/AdvReac Type Severity Reaction Status Date / Time ampicillin Allergy Severe Rash Verified 07/02/24 18:40 Vital Signs Vital Signs - 24 hr 07/05/24 18:04 07/05/24 20:03 07/05/24 20:41 Temperature 98.1 F Pulse Rate 97 93 Respiratory Rate 16 18 Blood Pressure 131/87 123/76 Pulse Oximetry 98 97 Oxygen Delivery Room Air 07/05/24 21:48 07/05/24 22:00 07/06/24 06:00 Temperature 97.7 F 97.6 F Pulse Rate 102 H 105 H Respiratory Rate 18 18 Blood Pressure 134/80 126/53 L Pulse Oximetry 95 91 Oxygen Delivery Room Air Exam 2 Const: General: cooperative, no acute distress, well developed, ill appearing and uncomfortable Orientation/consciousness: oriented to person, oriented to place, oriented to time and patient oriented x3 HENMT: Head: normal to inspection, normocephalic and atraumatic Mouth: Yes Normal oral and palatal mucosa present and Yes moist mucous membranes Eyes: General: appearance normal, both eyes and all related structures C onjunctivae: conjunctivae normal Sclera: sclerae normal Pupils: Equal, round and reactive pupils present Neck: Neck: normal visual inspection Chest: Chest palpation & inspection: normal inspection of the chest Resp: Effort & Inspection: normal respiratory effort and able to speak in complete sentences Auscultation: clear to auscultation bilaterally Cardio: Jugular venous distension: no JVD Rate: regular rate Rhythm: r egular rhythm Heart sounds: S1 normal heart sound present and S2 normal heart sound present GI: Inspection: normal to inspection GI Palp: Yes Soft to palpation, Yes Firmness to palpation present (GI) (distended abdomen with pain with palpation), Yes Tenderness to palpation present (GI) and Yes No hepatosplenomegaly present Auscultation: normal bowel sounds Rectal Exam: deferred Skin: General skin exam: normal color and no rashes or lesions noted Neuro: General: oriented to person, oriented to place, oriented to time and patient oriented x3 Cranial nerves: Yes Equal, round and reactive pupils present Speech: normal speech Extrem: General: normal to inspection and no clubbing, cyanosis or edema Psych: Appearance: grossly normal and well kempt Affect: normal affect Results Labs 07/06/24 05:18 07/06/24 05:18 Labs: Short CBC 07/05/24 07/06/24 Range/Units 12:56 05:18 WBC 15.3 H 20.0 H (4.5-10.0) K/mm3 Hgb 8.4 L 10.1 L (12.0-15.0) g/dL Hct 26.6 L 32.6 L (37.0-47.0) % Plt Count 235 379 H D (150-375) k/mm3 BMP 07/05/24 07/05/24 07/06/24 12:56 22:55 05:18 Sodium 135 L 134 L 137 Potassium 3.3 L 3.1 L 2.6 L* Chloride 108 H 108 H 106 Carbon Dioxide 20 L 18 L 22 BUN 6 L D 6 L 7 Creatinine 0.49 L 0.49 L 0.55 L Glucose 78 78 117 H Calcium 7.9 L 7.6 L 7.5 L Liver Function 07/05/24 07/06/24 Range/Units 12:56 05:18 Total Bilirubin 0.9 0.6 (0.2-1.3) mg/dL AST 28 18 (14-36) U/L ALT 19 15 (6-35) U/L Alkaline Phosphatase 86 104 (38-126) U/L Albumin 2.5 L 2.5 L (3.5-5.1) g/dL
[2024-07-06 12:19] VITALS: BP 122/80; PULSE 87; RESP 18; TEMP 36.4; O2SAT 96
[2024-07-06 13:33] VITALS: BMI 31.8
[2024-07-06 14:00] VITALS: BP 118/74; PULSE 90; RESP 16; TEMP 36.6; O2SAT 97
--- NOTE | 2024-07-06 14:46 | P.PNIM_ITS ---
Progress Note: A&P Assessment and Plan (1) Necrotizing pancreatitis: Code(s): K85.91 - Acute pancreatitis with uninfected necrosis, unspecified Status: Acute Assessment and Plan: * Awaiting transfer to [facility] * PRN Pain meds * PRN anti-emetics * Monitor and trend labs and VS. * IV abx changed to Meropenem for better coverage. (2) Normocytic anemia: Code(s): D64.9 - Anemia, unspecified Status: Acute Assessment and Plan: * Secondary to illness. * Monitor and trend labs. (3) Hypokalemia: Code(s): E87.6 - Hypokalemia Status: Acute Assessment and Plan: * 2.6 this AM. * Pt received 40 mEq per tube and another 40 mEq per IV. * Trend labs. Time Spent With Patient Time with patient: 25 - 35 minutes Subjective Date/time seen: 07/06/24 14:46 Interval history: This pt who is awaiting a bed at [facility] is examined at the bedside at this time. She continues to have some abdominal pain and cramping and she has been intolerant this AM of her TF's. I spoke with Johnny in Pharmacy and he recommended monotherapy with Meropenem for escalation and we are doing so at this time. Her Potassium today is low and she did receive 40 mEq by feeding tube and she also received IVPB Potassium. VSS, WBC's trending downward and we are awaiting a bed. Review of Systems Review of Systems: See HPI All systems reviewed & are unremarkable except as noted in HPI and below Exam Narrative: General: Moderately ill-appearing female sitting up in bed in no acute distress. HEENT: PERRL, EOMI. Sclera anicteric. Dry MM. Nasaointestinal dobhoff tube in the right naris. Neck: Supple. Respiratory: Lungs are clear to auscultation bilaterally. Cardiovascular: Regular rate and rhythm with S1-S2. Gastrointestinal: Abdomen is soft and slightly distended with very hypoactive bowel sounds. She is tender to palpation throughout the abdomen but more so in the upper left quadrant. No guarding or rebound tenderness. Skin: Warm and dry. Extremities: No cyanosis, clubbing, or edema. Radial and pedal pulses intact. Neurological: Alert. Cranial nerves 2-12 are grossly intact. No gross focal deficits to casual conversation. Psychiatric: Pleasant and cooperative with normal mood and flat affect. Objective Data Vital Signs Vital Signs: Vital Signs - 24 hr 07/05/24 18:04 07/05/24 20:03 07/05/24 20:41 Temperature 98.1 F Pulse Rate 97 93 Respiratory Rate 16 18 Blood Pressure 131/87 123/76 Pulse Oximetry 98 97 Oxygen Delivery Room Air 07/05/24 21:48 07/05/24 22:00 07/06/24 06:00 Temperature 97.7 F 97.6 F Pulse Rate 102 H 105 H Respiratory Rate 18 18 Blood Pressure 134/80 126/53 L Pulse Oximetry 95 91 Oxygen Delivery Room Air 07/06/24 12:19 Temperature 97.5 F L Pulse Rate 87 Respiratory Rate 18 Blood Pressure 122/80 Pulse Oximetry 96 Oxygen Delivery Intake/Output Intake/Output: Intake & Output 07/03/24 07/04/24 07/05/24 07/06/24 23:59 23:59 23:59 23:59 Intake Total 2300 3366.7 3450 1417.2 Output Total 300 Balance 2300 3366.7 3450 1117.2 Meds/Results Medications: Active Medications Generic Name Dose Route Start Last Admin Trade Name Freq PRN Reason Stop Dose Admin Hydromorphone HCl 1 mg 07/03/24 01:33 07/06/24 12:20 Hydromorphone Hcl Inj (*Crx) 1 Mg/Ml Syr IV PUSH 1 mg Q4H PRN Administration Pain Rated 7-10 Dextrose/Sodium Chloride 1,000 mls @ 65 mls/hr 07/06/24 06:35 07/06/24 06:44 Dextrose 5% Sodium Chloride 0.45% IV CONT 65 mls/hr .[id number] MALINA Administration Meropenem 1 gm in 100 mls @ 200 mls/hr 07/06/24 14:00 IVPB Q8HR MALINA Ondansetron HCl 4 mg 07/05/24 18:08 Ondansetron Inj 4 Mg/2 Ml Vial IV PUSH Q4H PRN Nausea Radiology Results: ITS Impressions Abdomen/Pelvis CT 07/02/24 23:45 IMPRESSION: Small left pleural effusion. Trace pericardial effusion. Minimal intrahepatic bile duct dilation, probably secondary to cholecystectomy, correlate with liver enzymes. Large peripancreatic fluid collection, increased in size, extending into the gal lbladder fossa, central mesentery, and bilateral paracolic gutters, likely representing walled off necrosis. Mesenteric lymphadenopathy. Labs Labs: Laboratory Results - last 24 hr 07/05/24 07/06/24 22:55 05:18 WBC 20.0 H RBC 3.45 L Hgb 10.1 L Hct 32.6 L MCV 94.5 MCH 29.3 MCHC 31.0 L RDW 13.1 Plt Count 379 H D MPV 9.4 Sodium 134 L 137 Potassium 3.1 L 2.6 L* Chloride 108 H 106 Carbon Dioxide 18 L 22 Anion Gap 8 9 BUN 6 L 7 Creatinine 0.49 L 0.55 L Estim Creat Clear Calc Not Reportable Not Reportable Estimated GFR > 60 > 60 Glucose 78 117 H Calcium 7.6 L 7.5 L Magnesium 1.9 Iron 34 L TIBC 158 L % Saturation 22 Ferritin 454.00 H Total Bilirubin 0.6 AST 18 ALT 15 Alkaline Phosphatase 104 Total Protein 6.0 L Albumin 2.5 L Prealbumin 5.5 L Lipase 419 H Vitamin B12 990.0 H Folate 8.1 TSH (Reflex) 3.760 Quality VTE Prophylaxis VTE prophylaxis: mechanical ordered
[2024-07-06] MEDS: MEROPENEM 1 GM/NS 100 ML 1 GM/100 ML BAG IVPB ×2 (16:54→21:03)
[2024-07-06 17:17] LABS: Glucose Point of Care 115 mg/dl (65-105)
[2024-07-06 20:02] VITALS: BP 117/71; PULSE 81; RESP 16; TEMP 36.5; O2SAT 97
[2024-07-07] MEDS: HYDROmorphone HCL INJ (*CRX) 1 MG/ML SYR IV PUSH ×5 (03:42→21:35)
[2024-07-07 05:11] VITALS: BP 119/79; PULSE 81; RESP 17; TEMP 36.4; O2SAT 97
[2024-07-07] MEDS: MEROPENEM 1 GM/NS 100 ML 1 GM/100 ML BAG IVPB ×3 (05:21→21:35)
[2024-07-07 06:21] LABS: Basophils Absolute Auto 0.1 K/mm3 (0.0-0.1); Basophils Percent Auto 0.6 % (0.2-1.2); Eosinophils Absolute Auto 0.3 K/mm3 (0-0.3); Eosinophils Percent Auto 1.9 % (0-4.4); Hematocrit 31.1 % (37.0-47.0); Hemoglobin 9.5 g/dL (12.0-15.0); Immature Granulocyte Absolute 0.14 K/mm3 (0.00-0.031); Immature Granulocyte Percent A 0.9 % (0-0.5); Lymphocytes Absolute Auto 1.36 K/mm3 (0.9-3.2); Lymphocytes Percent Auto 8.7 % (18.3-44.2); Mean Corpuscular HGB Conc 30.5 g/dl (32-36); Mean Corpuscular Hemoglobin 29.3 pg (26-34); Mean Platelet Volume 9.5 fl (7.4-10.4); Monocytes Absolute Auto 0.6 K/mm3 (0.1-0.6); Monocytes Percent Auto 3.6 % (2.6-8.5); Neutrophils Absolute Auto 13.2 K/mm3 (1.3-6.7); Neutrophils Percent Auto 84.3 % (45.5-73.1); Platelet Count Result 334 k/mm3 (150-375); Red Blood Count 3.24 M/mm3 (4.2-5.4); Red Cell Distribution Width 13.2 % (11.5-14.5); White Blood Count 15.7 K/mm3 (4.5-10.0)
[2024-07-07 06:36] LABS: Alanine Aminotransferase 11 U/L (6-35); Albumin Level 2.4 g/dL (3.5-5.1); Alkaline Phosphatase 82 U/L (38-126); Anion Gap 4 mmol/L (4-12); Aspartate Amino Transferase 22 U/L (14-36); Bilirubin,Total 0.6 mg/dL (0.2-1.3); Blood Urea Nitrogen 3 mg/dL (7-17); Calcium 7.5 mg/dL (8.4-10.2); Carbon Dioxide 26 mmol/L (22-30); Chloride 104 mmol/L (98-107); Estimated Glomerular Filt Rate > 60; Glucose 100 mg/dL (65-110); Potassium 3.2 mmol/L (3.4-5.0); Sodium 134 mmol/L (137-145)
--- NOTE | 2024-07-07 08:02 | P.PNIM_ITS ---
Progress Note: A&P Assessment and Plan (1) Necrotizing pancreatitis: Code(s): K85.91 - Acute pancreatitis with uninfected necrosis, unspecified Status: Acute Assessment and Plan: * Awaiting transfer to [facility] what pancreatic fluid collection drainage * PRN Pain meds * PRN anti-emetics * Monitor and trend labs and VS. * IV abx changed to Meropenem (2) Normocytic anemia: Code(s): D64.9 - Anemia, unspecified Status: Acute Assessment and Plan: stable * Secondary to illness. * Monitor and trend labs. * no need for transfusion at this time (3) Hypokalemia: Code(s): E87.6 - Hypokalemia Status: Acute Assessment and Plan: * replete as needed * Trend labs. (4) Malnutrition: Code(s): E46 - Unspecified protein-calorie malnutrition Status: Acute Assessment and Plan: patient not tolerating tube feed nutrition consult PPN and lipids Time Spent With Patient Time with patient: Greater than 35 minutes Subjective Date/time seen: 07/07/24 08:02 Interval history: 43-year-old female with history of minimal change disease and recent hospitalization for abdominal pain and transaminitis status post cholecystectomy and ERCP complicated by suspected necrotizing pancreatitis who presented to the emergency department in the evening of 07/02/2024 with complaints of severe abdominal pain. Awaiting transfer to [facility] for drainage of the pancreatic fluid collection leukocytosis improving on a.m. labs 15.7,, potassium 3.2, continue meropenem patient not tolerating small-bowel feeding tube, PPN ordered Review of Systems Review of Systems: See HPI All systems reviewed & are unremarkable except as noted in HPI and below Exam Narrative: General: Moderately ill-appearing female sitting up in bed in no acute distress. HEENT: PERRL, EOMI. Sclera anicteric. Dry MM. Nasaointestinal dobhoff small bowel tube in the right naris. Neck: Supple. Respiratory: Lungs are clear to auscultation bilaterally. Cardiovascular: Regular rate and rhythm with S1-S2. Gastrointestinal: Abdomen is soft and slightly distended with very hypoactive bowel sounds. She is tender to palpation throughout the abdomen but more so in the upper left quadrant. No guarding or rebound tenderness. Skin: Warm and dry. Extremities: No cyanosis, clubbing, or edema. Radial and pedal pulses intact. Neurological: Alert. Cranial nerves 2-12 are grossly intact. No gross focal deficits to casual conversation. Psychiatric: Pleasant and cooperative with normal mood and flat affect. Objective Data Vital Signs Vital Signs: Vital Signs - 24 hr 07/06/24 12:19 07/06/24 14:00 07/06/24 20:00 Temperature 97.5 F L 97.8 F Pulse Rate 87 90 Respiratory Rate 18 16 Blood Pressure 122/80 118/74 Pulse Oximetry 96 97 Oxygen Delivery Room Air 07/06/24 20:02 07/07/24 05:11 Temperature 97.7 F 97.6 F Pulse Rate 81 81 Respiratory Rate 16 17 Blood Pressure 117/71 119/79 Pulse Oximetry 97 97 Oxygen Delivery Intake/Output Intake/Output: Intake & Output 07/04/24 07/05/24 07/06/24 07/07/24 23:59 23:59 23:59 23:59 Intake Total 3366.7 3450 2767.2 280 Output Total 300 Balance 3366.7 3450 2467.2 280 Meds/Results Medications: Active Medications Generic Name Dose Route Start Last Admin Trade Name Freq PRN Reason Stop Dose Admin Hydromorphone HCl 1 mg 07/03/24 01:33 07/07/24 03:42 Hydromorphone Hcl Inj (*Crx) 1 Mg/Ml Syr IV PUSH 1 mg Q4H PRN Administration Pain Rated 7-10 Dextrose/Sodium Chloride 1,000 mls @ 65 mls/hr 07/06/24 06:35 07/06/24 21:03 Dextrose 5% Sodium Chloride 0.45% IV CONT 65 mls/hr .[id number] MALINA Administration Meropenem 1 gm in 100 mls @ 200 mls/hr 07/06/24 14:00 07/07/24 05:51 IVPB Infused Q8HR MALINA Infusion Ondansetron HCl 4 mg 07/05/24 18:08 Ondansetron Inj 4 Mg/2 Ml Vial IV PUSH Q4H PRN Nausea Radiology Results: ITS Impressions Abdomen/Pelvis CT 07/02/24 23:45 IMPRESSION: Small left pleural effusion. Trace pericardial effusion. Minimal intrahepatic bile duct dilation, probably secondary to cholecystectomy, correlate with liver enzymes. Large peripancreatic fluid collection, increased in size, extending into the gallbladder fossa, central mesentery, and bilateral paracolic gutters, likely representing walled off necrosis. Mesenteric lymphadenopathy. Labs Labs: Laboratory Results - last 24 hr 07/06/24 07/07/24 16:57 05:24 WBC 15.7 H RBC 3.24 L Hgb 9.5 L Hct 31.1 L MCV 96.0 MCH 29.3 MCHC 30.5 L RDW 13.2 Plt Count 334 MPV 9.5 Immature Gran % (Auto) 0.9 H Neut % (Auto) 84.3 H Lymph % (Auto) 8.7 L [place] % (Auto) 3.6 Eos % (Auto) 1.9 Baso % (Auto) 0.6 Lymph # (Auto) 1.36 [place] # (Auto) 0.6 Eos # (Auto) 0.3 Baso # (Auto) 0.1 Abs Immat Gran (auto) 0.14 H Absolute Neuts (auto) 13.2 H Absolute Nucleated RBC 0.000 Nucleated RBC % 0.0 Sodium 134 L Potassium 3.2 L Chloride 104 Carbon Dioxide 26 Anion Gap 4 BUN 3 L Creatinine 0.41 L Estim Creat Clear Calc Not Reportable Estimated GFR > 60 Glucose 100 POC Capillary Glucose 115 H Calcium 7.5 L Total Bilirubin 0.6 AST 22 ALT 11 Alkaline Phosphatase 82 Total Protein 6.0 L Albumin 2.4 L Quality VTE Prophylaxis VTE prophylaxis: mechanical ordered Hospitalist [facility] Advance Care Plan I have confirmed that the patient's Advanced Care Plan is present, code status is documented, or surrogate decision maker is listed in patient medical record.: Yes
[2024-07-07] MEDS: POTASSIUM CHLORIDE 20 MEQ PACKET (FOR LIQUID) 40 MEQ PO (08:43)
[2024-07-07] MEDS: DEXTROSE 5%/0.45% SOD CHL 1,000 ML 65 ML IV CONT (13:16)
--- NOTE | 2024-07-07 13:31 | PCNFU ---
Nutrition Follow-Up Complete: Inadequate energy intake related to GI intolerance as evidenced by vomiting, abdominal pain Goal: Meet estimated nutrition needs Patient is not meeting goal. Will continue current goal. Pt current nutrition is NPO. Nutrition recommendation: PPN at 80 ml/hr. Last recorded weight is 71.6 kg, no new weight to report. Bowel Motility:+BM reported 07/06 Labs Reviewed:Cr 0.41, K 3.2, BUN 3, Alb 2.4, Na 134 Meds Noted:Dextrose/Sodium Chloride, Meropenem Skin: WNL Additional Notes: Patient current with Dobbhoff. Tube feedings are not being tolerated at this time. Spoke with hospitalist today, recommending PPN for nutrition at this time. PPN providing 1153 kcal and 82 gm protein. Meeting 64% kcal needs at 25 kcal/kg and 100% protein needs at 1.0-1.2 gm/kg. Plan is to transfer to [facility] for continued care when bed available. Monitoring weight, plan of care, labs, meds Follow up Saturday/Saturday
[2024-07-07 14:00] VITALS: BP 119/80; PULSE 77; RESP 20; TEMP 36.4; O2SAT 97
--- NOTE | 2024-07-07 14:53 | P.PNGI_ITS ---
Progress Note: A&P Assessment and Plan (1) Necrotizing pancreatitis: Code(s): K85.91 - Acute pancreatitis with uninfected necrosis, unspecified Status: Acute Assessment and Plan: WON by repeat imaging, unable to tolerate tube feeding using DHT she is awaiting transfer to [facility]- will need evaluation with EUS and possible drainage of WON- probably this is causing also GOO (2) Walled-off necrosis of pancreas: Code(s): K86.89 - Other specified diseases of pancreas Status: Acute Assessment and Plan: transfer pending (3) Malnutrition: Code(s): E46 - Unspecified protein-calorie malnutrition Status: Acute Assessment and Plan: not tolerating tube feeding will start TPN in the meantime (4) Nausea and vomiting: Qualifiers: Vomiting type: bilious vomiting Qualified Code(s): R11.14 - Bilious vomiting Code(s): R11.2 - Nausea with vomiting, unspecified Status: Acute (5) Weight loss: Code(s): R63.4 - Abnormal weight loss Status: Acute (6) Generalized abdominal pain: Code(s): R10.84 - Generalized abdominal pain Status: Acute Subjective Date/time seen: 07/07/24 14:53 Interval history: no major changes, she could not tolerate feeding by DHT Review of Systems Review of Systems: All systems reviewed & are unremarkable except as noted in HPI and below Exam Const: Other: DHT in place HENMT: Face/Nose/Sinus: Normal nares present Eyes: General: appearance normal, both eyes and all related structures Neck: Neck: supple Resp: Effort & Inspection: normal respiratory effort Auscultation: no crackles and diminished lung sounds Cardio: Rate: regular rate GI: GI Palp: Yes Soft to palpation and Yes Tenderness to palpation present (GI) (mild ttp, no rebound) Auscultation: normal bowel sounds Skin: General skin exam: normal color Neuro: Speech: normal speech Motor exam (neuro): 5/5 motor strength present throughout Extrem: General: normal to inspection Psych: Mental Status: mental status grossly normal Objective Data Vital Signs Vital Signs: Vital Signs - 24 hr 07/06/24 20:00 07/06/24 20:02 07/07/24 05:11 Temperature 97.7 F 97.6 F Pulse Rate 81 81 Respiratory Rate 16 17 Blood Pressure 117/71 119/79 Pulse Oximetry 97 97 Oxygen Delivery Room Air 07/07/24 08:37 07/07/24 14:00 Temperature 97.6 F Pulse Rate 77 Respiratory Rate 20 Blood Pressure 119/80 Pulse Oximetry 97 Oxygen Delivery Room Air Intake/Output Intake/Output: Intake & Output 07/04/24 07/05/24 07/06/24 07/07/24 23:59 23:59 23:59 23:59 Intake Total 3366.7 3450 2767.2 1380 Output Total 300 Balance 3366.7 3450 2467.2 1380 Meds/Results Medications: Active Medications Generic Name Dose Route Start Last Admin Trade Name Freq PRN Reason Stop Dose Admin Hydromorphone HCl 1 mg 07/03/24 01:33 07/07/24 13:10 Hydromorphone Hcl Inj (*Crx) 1 Mg/Ml Syr IV PUSH 1 mg Q4H PRN Administration Pain Rated 7-10 Dextrose/Sodium Chloride 1,000 mls @ 65 mls/hr 07/06/24 06:35 07/07/24 13:16 Dextrose 5% Sodium Chloride 0.45% IV CONT 65 mls/hr .[id number] MALINA Administration Meropenem 1 gm in 100 mls @ 200 mls/hr 07/06/24 14:00 07/07/24 13:47 IVPB Infused Q8HR MALINA Infusion Dextrose 1,000 mls @ 50 mls/hr 07/07/24 13:44 Dextrose 10% IV CONT .Q20H PRN if PN is interrupted Amino Acids/Electrolytes/Dextrose 2,000 mls @ 80 mls/hr 07/07/24 16:00 Clinimix E 4.25%/5% Solution IV CONT .Q24H [facility] Protocol Fat Emulsion Intravenous 250 mls @ 20.833 mls/hr 07/07/24 16:00 Lipids 20% IVPB Q24H MALINA Ondansetron HCl 4 mg 07/05/24 18:08 Ondansetron Inj 4 Mg/2 Ml Vial IV PUSH Q4H PRN Nausea Radiology Results: ITS Impressions Abdomen/Pelvis CT 07/02/24 23:45 IMPRESSION: Small left pleural effusion. Trace pericardial effusion. Minimal intrahepatic bile duct dilation, probably secondary to cholecystectomy, correlate with liver enzymes. Large peripancreatic fluid collection, increased in size, extending into the gallbladder fossa, central mesentery, and bilateral paracolic gutters, likely representing walled off necrosis. Mesenteric lymphadenopathy. Labs Labs: Laboratory Results - last 24 hr 07/06/24 07/07/24 16:57 05:24 WBC 15.7 H RBC 3.24 L Hgb 9.5 L Hct 31.1 L MCV 96.0 MCH 29.3 MCHC 30.5 L RDW 13.2 Plt Count 334 MPV 9.5 Immature Gran % (Auto) 0.9 H Neut % (Auto) 84.3 H Lymph % (Auto) 8.7 L [place] % (Auto) 3.6 Eos % (Auto) 1.9 Baso % (Auto) 0.6 Lymph # (Auto) 1.36 [place] # (Auto) 0.6 Eos # (Auto) 0.3 Baso # (Auto) 0.1 Abs Immat Gran (auto) 0.14 H Absolute Neuts (auto) 13.2 H Absolute Nucleated RBC 0.000 Nucleated RBC % 0.0 Sodium 134 L Potassium 3.2 L Chloride 104 Carbon Dioxide 26 Anion Gap 4 BUN 3 L Creatinine 0.41 L Estim Creat Clear Calc Not Reportable Estimated GFR > 60 Glucose 100 POC Capillary Glucose 115 H Calcium 7.5 L Total Bilirubin 0.6 AST 22 ALT 11 Alkaline Phosphatase 82 Total Protein 6.0 L Albumin 2.4 L
[2024-07-07] MEDS: AMINO ACIDS 4.25%/D5W/LYTES/CA 2,000 ML 80 ML IV CONT (16:09)
[2024-07-07] MEDS: FAT EMULSIONS IV 20% 250 ML 20.83 ML IVPB (16:10)
[2024-07-07 18:38] LABS: Glucose Point of Care 131 mg/dl (65-105)
[2024-07-07 22:00] VITALS: BP 118/84; PULSE 86; RESP 18; TEMP 36.6; O2SAT 96
[2024-07-07 23:36] LABS: Glucose Point of Care 129 mg/dl (65-105)
[2024-07-08] MEDS: HYDROmorphone HCL INJ (*CRX) 1 MG/ML SYR IV PUSH ×6 (01:32→22:04)
[2024-07-08] MEDS: MEROPENEM 1 GM/NS 100 ML 1 GM/100 ML BAG IVPB ×3 (05:21→22:04)
[2024-07-08] MEDS: DEXTROSE 5%/0.45% SOD CHL 1,000 ML 65 ML IV CONT (05:21)
[2024-07-08 05:29] LABS: Glucose Point of Care 130 mg/dl (65-105)
[2024-07-08 05:45] LABS: Anion Gap 3 mmol/L (4-12); Blood Urea Nitrogen 7 mg/dL (7-17); Calcium 7.2 mg/dL (8.4-10.2); Carbon Dioxide 30 mmol/L (22-30); Chloride 100 mmol/L (98-107); Estimated Glomerular Filt Rate > 60; Glucose 130 mg/dL (65-110); Phosphorus 2.3 mg/dL (2.5-4.5); Potassium 3.1 mmol/L (3.4-5.0); Sodium 133 mmol/L (137-145)
[2024-07-08 05:58] VITALS: BP 118/81; PULSE 93; RESP 18; TEMP 36.8; O2SAT 96
--- NOTE | 2024-07-08 07:37 | P.PNIM_ITS ---
Progress Note: A&P Assessment and Plan (1) Necrotizing pancreatitis: Code(s): K85.91 - Acute pancreatitis with uninfected necrosis, unspecified Status: Acute Assessment and Plan: * Awaiting transfer to [facility] what pancreatic fluid collection drainage * PRN Pain meds * PRN anti-emetics * Monitor and trend labs and VS. * IV abx changed to Meropenem * PPN started due to patient not tolerating small-bowel tube feeds (2) Normocytic anemia: Code(s): D64.9 - Anemia, unspecified Status: Acute Assessment and Plan: stable * Secondary to illness. * Monitor and trend labs. * no need for transfusion at this time (3) Hypokalemia: Code(s): E87.6 - Hypokalemia Status: Acute Assessment and Plan: * replete as needed * Trend labs. (4) Malnutrition: Code(s): E46 - Unspecified protein-calorie malnutrition Status: Acute Assessment and Plan: patient not tolerating tube feed nutrition consult PPN and lipids Plan patient waiting on transferred to [facility] H Time Spent With Patient Time with patient: Greater than 35 minutes Subjective Date/time seen: 07/08/24 07:37 Interval history: 43-year-old with post ERCP pancreatitis now with necrotizing pancreatitis and fluid around the pancreas needing iron and pending is still UA cancer she could not tolerate feeding by DHT, started on PPN yesterday, potassium and calcium replace this morning due to severe imbalance Review of Systems Review of Systems: See HPI All systems reviewed & are unremarkable except as noted in HPI and below Exam Narrative: General: Moderately ill-appearing female sitting up in bed in no acute distress. HEENT: PERRL, EOMI. Sclera anicteric. Dry MM. Nasaointestinal dobhoff small bowel tube in the right naris. Neck: Supple. Respiratory: Lungs are clear to auscultation bilaterally. Cardiovascular: Regular rate and rhythm with S1-S2. Gastrointestinal: Abdomen is soft and slightly distended with very hypoactive bowel sounds. She is tender to palpation throughout the abdomen but more so in the upper left quadrant. No guarding or rebound tenderness. Skin: Warm and dry. Extremities: No cyanosis, clubbing, or edema. Radial and pedal pulses intact. Neurological: Alert. Cranial nerves 2-12 are grossly intact. No gross focal deficits to casual conversation. Psychiatric: Pleasant and cooperative with normal mood and flat affect. Objective Data Vital Signs Vital Signs: Vital Signs - 24 hr 07/07/24 08:37 07/07/24 14:00 07/07/24 20:00 Temperature 97.6 F Pulse Rate 77 Respiratory Rate 20 Blood Pressure 119/80 Pulse Oximetry 97 Oxygen Delivery Room Air Room Air 07/07/24 22:00 07/08/24 05:58 Temperature 97.8 F 98.3 F Pulse Rate 86 93 Respiratory Rate 18 18 Blood Pressure 118/84 118/81 Pulse Oximetry 96 96 Oxygen Delivery Intake/Output Intake/Output: Intake & Output 07/05/24 07/06/24 07/07/24 07/08/24 23:59 23:59 23:59 23:59 Intake Total 3450 2767.2 1480 1100 Output Total 300 Balance 3450 2467.2 1480 1100 Meds/Results Medications: Active Medications Generic Name Dose Route Start Last Admin Trade Name Freq PRN Reason Stop Dose Admin Hydromorphone HCl 1 mg 07/03/24 01:33 07/08/24 05:20 Hydromorphone Hcl Inj (*Crx) 1 Mg/Ml Syr IV PUSH 1 mg Q4H PRN Administration Pain Rated 7-10 Dextrose/Sodium Chloride 1,000 mls @ 65 mls/hr 07/06/24 06:35 07/08/24 05:21 Dextrose 5% Sodium Chloride 0.45% IV CONT 65 mls/hr .[id number] MALINA Administration Meropenem 1 gm in 100 mls @ 200 mls/hr 07/06/24 14:00 07/08/24 05:51 IVPB Infused Q8HR MALINA Infusion Dextrose 1,000 mls @ 50 mls/hr 07/07/24 13:44 Dextrose 10% IV CONT .Q20H PRN if PN is interrupted Amino Acids/Electrolytes/Dextrose 2,000 mls @ 80 mls/hr 07/07/24 16:00 07/07/24 16:09 Clinimix E 4.25%/5% Solution IV CONT 80 mls/hr .Q24H MALINA Administration Protocol Fat Emulsion Intravenous 250 mls @ 20.833 mls/hr 07/07/24 16:00 07/07/24 16:10 Lipids 20% IVPB 20.83 mls/hr Q24H MALINA Administration Ondansetron HCl 4 mg 07/05/24 18:08 Ondansetron Inj 4 Mg/2 Ml Vial IV PUSH Q4H PRN Nausea Radiology Results: ITS Impressions Abdomen/Pelvis CT 07/02/24 23:45 IMPRESSION: Small left pleural effusion. Trace pericardial effusion. Minimal intrahepatic bile duct dilation, probably secondary to cholecystectomy, correlate with liver enzymes. Large peripancreatic fluid collection, increased in size, extending into the gallbladder fossa, central mesentery, and bilateral paracolic gutters, likely representing walled off necrosis. Mesenteric lymphadenopathy. Labs Labs: Laboratory Results - last 24 hr 07/07/24 07/07/24 07/08/24 18:36 23:29 05:05 Sodium 133 L Potassium 3.1 L Chloride 100 Carbon Dioxide 30 Anion Gap 3 L BUN 7 Creatinine 0.39 L Estim Creat Clear Calc Not Reportable Estimated GFR > 60 Glucose 130 H POC Capillary Glucose 131 H 129 H Calcium 7.2 L Phosphorus 2.3 L 07/08/24 05:25 Sodium Potassium Chloride Carbon Dioxide Anion Gap BUN Creatinine Estim Creat Clear Calc Estimated GFR Glucose POC Capillary Glucose 130 H Calcium Phosphorus Quality VTE Prophylaxis VTE prophylaxis: mechanical ordered
[2024-07-08] MEDS: CALCIUM GLUC 2,000 MG/NS 100ML 2,000 MG/100 ML BAG 100 MG IVPB (08:36)
[2024-07-08] MEDS: KCL 20 MEQ/SW 100 ML 100 ML 50 MEQ IVPB (09:59)
[2024-07-08 12:14] LABS: Glucose Point of Care 127 mg/dl (65-105)
[2024-07-08 14:00] VITALS: BP 121/82; PULSE 85; RESP 17; TEMP 36.4; O2SAT 97
[2024-07-08] MEDS: SODIUM CHLORIDE 0.9% IV 1,000 ML 999 ML IV CONT (14:07)
[2024-07-08] MEDS: FAT EMULSIONS IV 20% 250 ML 20.83 ML IVPB (16:00)
[2024-07-08] MEDS: AMINO ACIDS 4.25%/D5W/LYTES/CA 2,000 ML 80 ML IV CONT (16:00)
[2024-07-08 16:01] LABS: Triglycerides 124 mg/dL (<150)
--- NOTE | 2024-07-08 17:15 | WPDGIPROGNO ---
Progress Note: A&P Assessment and Plan (1) Necrotizing pancreatitis: Code(s): K85.91 - Acute pancreatitis with uninfected necrosis, unspecified Status: Acute Assessment and Plan: WON by repeat imaging, unable to tolerate tube feeding using DHT and started on TPN for now she is awaiting transfer to [facility]- will need evaluation with EUS and possible drainage of WON- probably this is causing also GOO (2) Walled-off necrosis of pancreas: Code(s): K86.89 - Other specified diseases of pancreas Status: Acute Assessment and Plan: transfer pending (3) Malnutrition: Code(s): E46 - Unspecified protein-calorie malnutrition Status: Acute Assessment and Plan: not tolerating tube feeding continue with TPN in the meantime (4) Nausea and vomiting: Qualifiers: Vomiting type: bilious vomiting Qualified Code(s): R11.14 - Bilious vomiting Code(s): R11.2 - Nausea with vomiting, unspecified Status: Acute (5) Weight loss: Code(s): R63.4 - Abnormal weight loss Status: Acute Subjective Date/time seen: 07/08/24 17:15 Interval history: started on tpn, no changes Review of Systems Review of Systems: All systems reviewed & are unremarkable except as noted in HPI and below Exam Const: Other: DHT in place HENMT: Face/Nose/Sinus: Normal nares present Eyes: General: appearance normal, both eyes and all related structures Neck: Neck: supple Resp: Effort & Inspection: normal respiratory effort Auscultation: no crackles and diminished lung sounds Cardio: Rate: regular rate GI: GI Palp: Yes Soft to palpation and Yes Tenderness to palpation present (GI) (mild ttp, no rebound) Auscultation: normal bowel sounds Skin: General skin exam: normal color Neuro: Speech: normal speech Motor exam (neuro): 5/5 motor strength present throughout Extrem: General: normal to inspection Psych: Mental Status: mental status grossly normal Objective Data Vital Signs Vital Signs: Vital Signs - 24 hr 07/07/24 20:00 07/07/24 22:00 07/08/24 05:58 Temperature 97.8 F 98.3 F Pulse Rate 86 93 Respiratory Rate 18 18 Blood Pressure 118/84 118/81 Pulse Oximetry 96 96 Oxygen Delivery Room Air 07/08/24 08:35 07/08/24 14:00 Temperature 97.6 F Pulse Rate 85 Respiratory Rate 17 Blood Pressure 121/82 Pulse Oximetry 97 Oxygen Delivery Room Air Intake/Output Intake/Output: Intake & Output 07/05/24 07/06/24 07/07/24 07/08/24 23:59 23:59 23:59 23:59 Intake Total 3450 2767.2 1480 3358 Output Total 300 Balance 3450 2467.2 1480 3358 Meds/Results Medications: Active Medications Generic Name Dose Route Start Last Admin Trade Name Freq PRN Reason Stop Dose Admin Hydromorphone HCl 1 mg 07/03/24 01:33 07/08/24 14:06 Hydromorphone Hcl Inj (*Crx) 1 Mg/Ml Syr IV PUSH 1 mg Q4H PRN Administration Pain Rated 7-10 Meropenem 1 gm in 100 mls @ 200 mls/hr 07/06/24 14:00 07/08/24 14:38 IVPB Infused Q8HR MALINA Infusion Dextrose 1,000 mls @ 50 mls/hr 07/07/24 13:44 Dextrose 10% IV CONT .Q20H PRN if PN is interrupted Amino Acids/Electrolytes/Dextrose 2,000 mls @ 80 mls/hr 07/07/24 16:00 07/08/24 16:00 Clinimix E 4.25%/5% Solution IV CONT 80 mls/hr .Q24H MALINA Administration Protocol Fat Emulsion Intravenous 250 mls @ 20.833 mls/hr 07/07/24 16:00 07/08/24 16:00 Lipids 20% IVPB 20.83 mls/hr Q24H MALINA Administration Ondansetron HCl 4 mg 07/05/24 18:08 Ondansetron Inj 4 Mg/2 Ml Vial IV PUSH Q4H PRN Nausea Radiology Results: ITS Impressions Abdomen/Pelvis CT 07/02/24 23:45 IMPRESSION: Small left pleural effusion. Trace pericardial effusion. Minimal intrahepatic bile duct dilation, probably secondary to cholecystectomy, correlate with liver enzymes. Large peripancreatic fluid collection, increased in size, extending into the gallbladder fossa, central mesentery, and bilateral paracolic gutters, likely representing walled off necrosis. Mesenteric lymphadenopathy. Labs Labs: Laboratory Results - last 24 hr 07/07/24 07/07/24 07/08/24 18:36 23:29 05:05 Sodium 133 L Potassium 3.1 L Chloride 100 Carbon Dioxide 30 Anion Gap 3 L BUN 7 Creatinine 0.39 L Estim Creat Clear Calc Not Reportable Estimated GFR > 60 Glucose 130 H POC Capillary Glucose 131 H 129 H Calcium 7.2 L Phosphorus 2.3 L Triglycerides 124 07/08/24 07/08/24 05:25 11:56 Sodium Potassium Chloride Carbon Dioxide Anion Gap BUN Creatinine Estim Creat Clear Calc Estimated GFR Glucose POC Capillary Glucose 130 H 127 H Calcium Phosphorus Triglycerides
[2024-07-08 22:00] VITALS: BP 106/78; PULSE 93; RESP 18; TEMP 37.1; O2SAT 94
[2024-07-08 23:06] LABS: Glucose Point of Care 106 mg/dl (65-105)
[2024-07-09] MEDS: HYDROmorphone HCL INJ (*CRX) 1 MG/ML SYR IV PUSH ×6 (02:28→23:30)
[2024-07-09 05:58] LABS: Basophils Absolute Auto 0.1 K/mm3 (0.0-0.1); Basophils Percent Auto 0.4 % (0.2-1.2); Eosinophils Absolute Auto 0.2 K/mm3 (0-0.3); Eosinophils Percent Auto 1.7 % (0-4.4); Hematocrit 28.5 % (37.0-47.0); Hemoglobin 9.2 g/dL (12.0-15.0); Immature Granulocyte Absolute 0.14 K/mm3 (0.00-0.031); Lymphocytes Absolute Auto 1.85 K/mm3 (0.9-3.2); Lymphocytes Percent Auto 13.3 % (18.3-44.2); Mean Corpuscular HGB Conc 32.3 g/dl (32-36); Mean Corpuscular Hemoglobin 29.4 pg (26-34); Mean Corpuscular Volume 91.1 fl (80-100); Mean Platelet Volume 9.4 fl (7.4-10.4); Monocytes Absolute Auto 0.6 K/mm3 (0.1-0.6); Neutrophils Absolute Auto 11.1 K/mm3 (1.3-6.7); Neutrophils Percent Auto 79.6 % (45.5-73.1); Platelet Count Result 333 k/mm3 (150-375); Red Blood Count 3.13 M/mm3 (4.2-5.4); White Blood Count 13.9 K/mm3 (4.5-10.0)
[2024-07-09] MEDS: MEROPENEM 1 GM/NS 100 ML 1 GM/100 ML BAG IVPB ×3 (05:58→21:02)
[2024-07-09 06:00] VITALS: BP 122/73; PULSE 89; RESP 18; TEMP 36.5; O2SAT 93
[2024-07-09 06:03] LABS: Alanine Aminotransferase 10 U/L (6-35); Albumin Level 2.3 g/dL (3.5-5.1); Alkaline Phosphatase 73 U/L (38-126); Anion Gap 2 mmol/L (4-12); Aspartate Amino Transferase 23 U/L (14-36); Bilirubin,Total 0.4 mg/dL (0.2-1.3); Blood Urea Nitrogen 11 mg/dL (7-17); Calcium 7.4 mg/dL (8.4-10.2); Carbon Dioxide 32 mmol/L (22-30); Chloride 100 mmol/L (98-107); Estimated Glomerular Filt Rate > 60; Glucose 105 mg/dL (65-110); Magnesium 2.2 mg/dL (1.6-2.3); Phosphorus 3.1 mg/dL (2.5-4.5); Potassium 3.4 mmol/L (3.4-5.0); Sodium 134 mmol/L (137-145)
[2024-07-09 06:06] LABS: Glucose Point of Care 124 mg/dl (65-105)
[2024-07-09] MEDS: LIDOCAINE 1% PF INJ 5 ML VIAL INFILTRATE (11:20)
[2024-07-09 12:12] LABS: Glucose Point of Care 114 mg/dl (65-105)
--- NOTE | 2024-07-09 12:47 | PM.IMPN ---
Progress Note: A&P Assessment and Plan (1) Necrotizing pancreatitis: Code(s): K85.91 - Acute pancreatitis with uninfected necrosis, unspecified Status: Acute Assessment and Plan: Awaiting transfer to [facility] what pancreatic fluid collection drainage PRN Pain meds PRN anti-emetics Monitor and trend labs and VS. IV abx changed to Meropenem PPN started due to patient not tolerating small-bowel tube feeds 07/09/24: PICC line placed today so that pt may continue PPN therapy. (2) Normocytic anemia: Code(s): D64.9 - Anemia, unspecified Status: Acute Assessment and Plan: stable Secondary to illness. Monitor and trend labs. no need for transfusion at this time 07/09/24: Stable H&H today at 9.2/28.5. (3) Hypokalemia: Code(s): E87.6 - Hypokalemia Status: Acute Assessment and Plan: replete as needed Trend labs. 07/09/24: Stable at 3.4. (4) Malnutrition: Code(s): E46 - Unspecified protein-calorie malnutrition Status: Acute Assessment and Plan: patient not tolerating tube feed nutrition consult PPN and lipids 07/09/24: Secondary to poor intake and protein calorie malnutrition that is moderate. Continue PPN and lipids Plan patient waiting on transferred to [facility] H Time Spent With Patient Time with patient: 15 - 25 minutes Subjective Date/time seen: 07/09/24 0930 Interval history: This pt is evaluated at the bedside today. [facility] is [facility] She lost 2-IVs overnight and will be having a PICC placed today so that she may continue her PPN. She is being followed while she is here by GI, who states her WON is causing her GOO. She will require EUS for drainage of the WON and further treatment/evaluation of the GOO. Pt states her pain is tolerable, but she does have some. She is passing flatus. No fevers and no other acute complaints at this time. Review of Systems Review of Systems: All systems reviewed & are unremarkable except as noted in HPI and below Exam Narrative: General: Moderately ill-appearing female sitting up in bed in no acute distress. HEENT: PERRL, EOMI. Sclera anicteric. Dry MM. Nasaointestinal dobhoff small bowel tube in the right naris. Neck: Supple. Respiratory: Lungs are clear to auscultation bilaterally. Cardiovascular: Regular rate and rhythm with S1-S2. Gastrointestinal: Abdomen is soft and slightly distended with very hypoactive bowel sounds. She is tender to palpation throughout the abdomen but more so in the upper left quadrant. No guarding or rebound tenderness. Skin: Warm and dry. Extremities: No cyanosis, clubbing, or edema. Radial and pedal pulses intact. Neurological: Alert. Cranial nerves 2-12 are grossly intact. No gross focal deficits to casual conversation. Psychiatric: Pleasant and cooperative with normal mood and flat affect. Objective Data Vital Signs Vital Signs: Vital Signs - 24 hr 07/08/24 14:00 07/08/24 20:00 07/08/24 22:00 Temperature 97.6 F 98.8 F Pulse Rate 85 93 Respiratory Rate 17 18 Blood Pressure 121/82 106/78 Pulse Oximetry 97 94 Oxygen Delivery Room Air 07/09/24 06:00 07/09/24 08:00 Temperature 97.7 F Pulse Rate 89 Respiratory Rate 18 Blood Pressure 122/73 Pulse Oximetry 93 Oxygen Delivery Room Air Intake/Output Intake/Output: Intake & Output 07/06/24 07/07/24 07/08/24 07/09/24 23:59 23:59 23:59 23:59 Intake Total 2767.2 1480 3458 350 Output Total 300 Balance 2467.2 1480 3458 350 Meds/Results Medications: Active Medications Generic Name Dose Route Start Last Admin Trade Name Freq PRN Reason Stop Dose Admin Hydromorphone HCl 1 mg 07/03/24 01:33 07/09/24 10:42 Hydromorphone Hcl Inj (*Crx) 1 Mg/Ml Syr IV PUSH 1 mg Q4H PRN Administration Pain Rated 7-10 Meropenem 1 gm in 100 mls @ 200 mls/hr 07/06/24 14:00 07/09/24 06:28 IVPB Infused Q8HR MALINA Infusion Dextrose 1,000 mls @ 50 mls/hr 07/07/24 13:44 Dextrose 10% IV CONT .Q20H PRN if PN is interrupted Amino Acids/Electrolytes/Dextrose 2,000 mls @ 80 mls/hr 07/07/24 16:00 07/08/24 16:00 Clinimix E 4.25%/5% Solution IV CONT 80 mls/hr .Q24H MALINA Administration Protocol Fat Emulsion Intravenous 250 mls @ 20.833 mls/hr 07/07/24 16:00 07/09/24 04:01 Lipids 20% IVPB Infused Q24H MALINA Infusion Ondansetron HCl 4 mg 07/05/24 18:08 Ondansetron Inj 4 Mg/2 Ml Vial IV PUSH Q4H PRN Nausea Sodium Chloride 20 ml 07/09/24 11:42 Central Line Flush IV PUSH PRN PRN after blood draws Sodium Chloride 10 ml 07/09/24 11:42 Central Line Flush IV PUSH PRN PRN with TPN bag changes Sodium Chloride 10 ml 07/09/24 14:00 Central Line Flush IV PUSH Q8HR [facility] Radiology Results: ITS Impressions Abdomen/Pelvis CT 07/02/24 23:45 IMPRESSION: Small left pleural effusion. Trace pericardial effusion. Minimal intrahepatic bile duct dilation, probably secondary to cholecystectomy, correlate with liver enzymes. Large peripancreatic fluid collection, increased in size, extending into the gallbladder fossa, central mesentery, and bilateral paracolic gutters, likely representing walled off necrosis. Mesenteric lymphadenopathy. Chest X-Ray 07/09/24 11:52 IMPRESSION: Left basilar atelectasis versus pneumonia. Labs Labs: Laboratory Results - last 24 hr 07/08/24 07/08/24 07/09/24 05:05 23:03 04:57 WBC 13.9 H RBC 3.13 L Hgb 9.2 L Hct 28.5 L MCV 91.1 D MCH 29.4 MCHC 32.3 RDW 13.0 Plt Count 333 MPV 9.4 Immature Gran % (Auto) 1.0 H Neut % (Auto) 79.6 H Lymph % (Auto) 13.3 L [place] % (Auto) 4.0 Eos % (Auto) 1.7 Baso % (Auto) 0.4 Lymph # (Auto) 1.85 Long # (Auto) 0.6 Eos # (Auto) 0.2 Baso # (Auto) 0.1 Abs Immat Gran (auto) 0.14 H Absolute Neuts (auto) 11.1 H Absolute Nucleated RBC 0.000 Nucleated RBC % 0.0 Sodium 134 L Potassium 3.4 Chloride 100 Carbon Dioxide 32 H Anion Gap 2 L BUN 11 Creatinine 0.36 L Estim Creat Clear Calc Not Reportable Estimated GFR > 60 Glucose 105 POC Capillary Glucose 106 H Calcium 7.4 L Phosphorus 3.1 Magnesium 2.2 Total Bilirubin 0.4 AST 23 ALT 10 Alkaline Phosphatase 73 Total Protein 6.0 L Albumin 2.3 L Triglycerides 124 07/09/24 07/09/24 06:02 11:58 WBC RBC Hgb Hct MCV MCH MCHC RDW Plt Count MPV Immature Gran % (Auto) Neut % (Auto) Lymph % (Auto) Long % (Auto) Eos % (Auto) Baso % (Auto) Lymph # (Auto) Long # (Auto) Eos # (Auto) Baso # (Auto) Abs Immat Gran (auto) Absolute Neuts (auto) Absolute Nucleated RBC Nucleated RBC % Sodium Potassium Chloride Carbon Dioxide Anion Gap BUN Creatinine Estim Creat Clear Calc Estimated GFR Glucose POC Capillary Glucose 124 H 114 H Calcium Phosphorus Magnesium Total Bilirubin AST ALT Alkaline Phosphatase Total Protein Albumin Triglycerides Quality VTE Prophylaxis VTE prophylaxis: mechanical ordered
[2024-07-09] MEDS: CENTRAL LINE FLUSH 10 ML IV PUSH ×2 (13:45→21:03)
[2024-07-09 14:00] VITALS: BP 122/81; PULSE 81; RESP 16; TEMP 36.6; O2SAT 96
[2024-07-09] MEDS: AMINO ACIDS 4.25%/D5W/LYTES/CA 2,000 ML 80 ML IV CONT (15:42)
[2024-07-09] MEDS: FAT EMULSIONS IV 20% 250 ML 20.83 ML IVPB (15:42)
--- NOTE | 2024-07-09 15:55 | P.PNGI_ITS ---
Progress Note: A&P Assessment and Plan (1) Necrotizing pancreatitis: Code(s): K85.91 - Acute pancreatitis with uninfected necrosis, unspecified Status: Acute Assessment and Plan: WON by repeat imaging, unable to tolerate tube feeding using DHT and continue with TPN she is still awaiting [facility]- will need evaluation with EUS and possible drainage of WON- probably this is causing also GOO (2) Walled-off necrosis of pancreas: Code(s): K86.89 - Other specified diseases of pancreas Status: Acute Assessment and Plan: transfer pending (3) Malnutrition: Code(s): E46 - Unspecified protein-calorie malnutrition Status: Acute Assessment and Plan: not tolerating tube feeding continue with TPN in the meantime (4) Nausea and vomiting: Qualifiers: Vomiting type: bilious vomiting Qualified Code(s): R11.14 - Bilious vomiting Code(s): R11.2 - Nausea with vomiting, unspecified Status: Acute Subjective Date/time seen: 07/09/24 15:55 Interval history: on TPN, similar abdominal pain Review of Systems Review of Systems: All systems reviewed & are unremarkable except as noted in HPI and below Exam Const: Other: DHT in place HENMT: Face/Nose/Sinus: Normal nares present Eyes: General: appearance normal, both eyes and all related structures Neck: Neck: supple Resp: Effort & Inspection: normal respiratory effort Auscultation: no crack les and diminished lung sounds Cardio: Rate: regular rate GI: GI Palp: Yes Soft to palpation and Yes Tenderness to palpation present (GI) (mild ttp, no rebound) Auscultation: normal bowel sounds Skin: General skin exam: normal color Neuro: Speech: normal speech Motor exam (neuro): 5/5 motor strength present throughout Extrem: General: normal to inspection Psych: Mental Status: mental status grossly normal Objective Data Vital Signs Vital Signs: Vital Signs - 24 hr 07/08/24 20:00 07/08/24 22:00 07/09/24 06:00 Temperature 98.8 F 97.7 F Pulse Rate 93 89 Respiratory Rate 18 18 Blood Pressure 106/78 122/73 Pulse Oximetry 94 93 Oxygen Delivery Room Air 07/09/24 08:00 07/09/24 14:00 Temperature 97.8 F Pulse Rate 81 Respiratory Rate 16 Blood Pressure 122/81 Pulse Oximetry 96 Oxygen Delivery Room Air Intake/Output Intake/Output: Intake & Output 07/06/24 07/07/24 07/08/24 07/09/24 23:59 23:59 23:59 23:59 Intake Total 2767.2 1480 3458 2346 Output Total 300 Balance 2467.2 1480 3458 2346 Meds/Results Medications: Active Medications Generic Name Dose Route Start Last Admin Trade Name Freq PRN Reason Stop Dose Admin Hydromorphone HCl 1 mg 07/03/24 01:33 07/09/24 15:41 Hydromorphone Hcl Inj (*Crx) 1 Mg/Ml Syr IV PUSH 1 mg Q4H PRN Administration Pain Rated 7-10 Meropenem 1 gm in 100 mls @ 200 mls/hr 07/06/24 14:00 07/09/24 14:15 IVPB Infused Q8HR MALINA Infusion Dextrose 1,000 mls @ 50 mls/hr 07/07/24 13:44 Dextrose 10% IV CONT .Q20H PRN if PN is interrupted Amino Acids/Electrolytes/Dextrose 2,000 mls @ 80 mls/hr 07/07/24 16:00 07/09/24 15:42 Clinimix E 4.25%/5% Solution IV CONT 80 mls/hr .Q24H MALINA Administration Protocol Fat Emulsion Intravenous 250 mls @ 20.833 mls/hr 07/07/24 16:00 07/09/24 15:42 Lipids 20% IVPB 20.83 mls/hr Q24H MALINA Administration Ondansetron HCl 4 mg 07/05/24 18:08 Ondansetron Inj 4 Mg/2 Ml Vial IV PUSH Q4H PRN Nausea Sodium Chloride 20 ml 07/09/24 11:42 Central Line Flush IV PUSH PRN PRN after blood draws Sodium Chloride 10 ml 07/09/24 11:42 Central Line Flush IV PUSH PRN PRN with TPN bag changes Sodium Chloride 10 ml 07/09/24 14:00 07/09/24 13:45 Central Line Flush IV PUSH 10 ml Q8HR MALINA Administration Radiology Results: ITS Impressions Abdomen/Pelvis CT 07/02/24 23:45 IMPRESSION: Small left pleural effusion. Trace pericardial effusion. Minimal intrahepatic bile duct dilation, probably secondary to cholecystectomy, correlate with liver enzymes. Large peripancreatic fluid collection, increased in size, extending into the gallbladder fossa, central mesentery, and bilateral paracolic gutters, likely representing walled off necrosis. Mesenteric lymphadenopathy. Chest X-Ray 07/09/24 11:52 IMPRESSION: Left basilar atelectasis versus pneumonia. Labs Labs: Laboratory Results - last 24 hr 07/08/24 07/08/24 07/09/24 05:05 23:03 04:57 WBC 13.9 H RBC 3.13 L Hgb 9.2 L Hct 28.5 L MCV 91.1 D MCH 29.4 MCHC 32.3 RDW 13.0 Plt Count 333 MPV 9.4 Immature Gran % (Auto) 1.0 H Neut % (Auto) 79.6 H Lymph % (Auto) 13.3 L [place] % (Auto) 4.0 Eos % (Auto) 1.7 Baso % (Auto) 0.4 Lymph # (Auto) 1.85 [place] # (Auto) 0.6 Eos # (Auto) 0.2 Baso # (Auto) 0.1 Abs Immat Gran (auto) 0.14 H Absolute Neuts (auto) 11.1 H Absolute Nucleated RBC 0.000 Nucleated RBC % 0.0 Sodium 134 L Potassium 3.4 Chloride 100 Carbon Dioxide 32 H Anion Gap 2 L BUN 11 Creatinine 0.36 L Estim Creat Clear Calc Not Reportable Estimated GFR > 60 Glucose 105 POC Capillary Glucose 106 H Calcium 7.4 L Phosphorus 3.1 Magnesium 2.2 Total Bilirubin 0.4 AST 23 ALT 10 Alkaline Phosphatase 73 Total Protein 6.0 L Albumin 2.3 L Triglycerides 124 07/09/24 07/09/24 06:02 11:58 WBC RBC Hgb Hct MCV MCH MCHC RDW Plt Count MPV Immature Gran % (Auto) Neut % (Auto) Lymph % (Auto) [place] % (Auto) Eos % (Auto) Baso % (Auto) Lymph # (Auto) [place] # (Auto) Eos # (Auto) Baso # (Auto) Abs Immat Gran (auto) Absolute Neuts (auto) Absolute Nucleated RBC Nucleated RBC % Sodium Potassium Chloride Carbon Dioxide Anion Gap BUN Creatinine Estim Creat Clear Calc Estimated GFR Glucose POC Capillary Glucose 124 H 114 H Calcium Phosphorus Magnesium Total Bilirubin AST ALT Alkaline Phosphatase Total Protein Albumin Triglycerides
[2024-07-09 18:46] LABS: Glucose Point of Care 112 mg/dl (65-105)
[2024-07-09 19:43] VITALS: BP 128/87; PULSE 92; RESP 18; TEMP 36.8; O2SAT 96
[2024-07-10 00:03] LABS: Glucose Point of Care 108 mg/dl (65-105)
[2024-07-10] MEDS: HYDROmorphone HCL INJ (*CRX) 1 MG/ML SYR IV PUSH ×6 (03:00→23:52)
[2024-07-10 03:57] VITALS: BP 120/82; PULSE 94; RESP 18; TEMP 36.6; O2SAT 95
[2024-07-10] MEDS: MEROPENEM 1 GM/NS 100 ML 1 GM/100 ML BAG IVPB ×3 (05:29→21:17)
[2024-07-10] MEDS: CENTRAL LINE FLUSH 10 ML IV PUSH ×3 (05:29→21:18)
[2024-07-10 05:32] LABS: Glucose Point of Care 116 mg/dl (65-105)
[2024-07-10 05:45] LABS: Anion Gap 0 mmol/L (4-12); Blood Urea Nitrogen 13 mg/dL (7-17); Calcium 7.4 mg/dL (8.4-10.2); Carbon Dioxide 32 mmol/L (22-30); Chloride 100 mmol/L (98-107); Estimated Glomerular Filt Rate > 60; Glucose 98 mg/dL (65-110); Phosphorus 3.3 mg/dL (2.5-4.5); Potassium 3.8 mmol/L (3.4-5.0); Sodium 132 mmol/L (137-145)
[2024-07-10] MEDS: diazePAM INJ (*CRX) 10 MG/2 ML SYRINGE 2 MG IV PUSH (09:17)
--- NOTE | 2024-07-10 09:25 | PC.NURSE ---
pt taken down to CT
[2024-07-10 09:36] VITALS: O2SAT 94
--- NOTE | 2024-07-10 09:46 | P.PNIM_ITS ---
Progress Note: A&P Assessment and Plan (1) Necrotizing pancreatitis: Code(s): K85.91 - Acute pancreatitis with uninfected necrosis, unspecified Status: Acute Assessment and Plan: * [facility]waiting [facility] to [facility] what pancreatic fluid collection drainage * PRN Pain meds * PRN anti-emetics * Monitor and trend labs and VS. * IV abx changed to Meropenem * PPN started due to patient not tolerating small-bowel tube feeds 07/09/24: * PICC line placed today so that pt may continue PPN therapy. 07/10/24: * Continue PICC with PPN therapy. * As pt is having pain today in the right flank, will repeat CT abd and pelvis to check for interval changes. CT showed mild interval decrease in size of a large organized peripheral enhancing peripancreatic fluid collection. Otherwise no acute findings. * Continue meropenem * Obtain UA * Start Valium 2 mg Q4 hrs prn for pain. Suspect musculoskeletal in nature. (2) Normocytic anemia: Code(s): D64.9 - Anemia, unspecified Status: Acute Assessment and Plan: stable * Secondary to illness. * Monitor and trend labs. * no need for transfusion at this time 07/09/24: * Stable H&H today at 9.2/28.5. 07/10/24: * 9.3/28.7 today. Stable. (3) Hypokalemia: Code(s): E87.6 - Hypokalemia Status: Resolved Assessment and Plan: * replete as needed * Trend labs. 07/09/24: * Stable at 3.4. 07/10/24: * RESOLVED - 3.8 (4) Malnutrition: Code(s): E46 - Unspecified protein-calorie malnutrition Status: Acute Assessment and Plan: patient not tolerating tube feed nutrition consult PPN and lipids 07/09/24: * Secondary to poor intake and protein calorie malnutrition that is moderate. * Continue PPN and lipids 07/10/24: * Continuing PPN pending transfer. Plan patient waiting on transferred to [facility] H Time Spent With Patient Time with patient: 15 - 25 minutes Subjective Date/time seen: 07/10/24 09:00 Interval history: This pt was evaluated this AM as she continues wait on a bed at [facility]. She has been waiting now for five days. She has a new complaint of pain this AM in the right flank/Right back region. She describes it as sharp, constant and not relieved by the dilaudid that she has been receiving. She has no fevers, N/V/D or urinary symptoms of burning, urgency, frequency or hematuria. Review of Systems Review of Systems: All systems reviewed & are unremarkable except as noted in HPI and below Exam Narrative: General: Moderately ill-appearing female sitting up in bed in no acute distress. HEENT: PERRL, EOMI. Sclera anicteric. Dry MM. Nasaointestinal dobhoff small bowel tube in the right naris. Neck: Supple. Respiratory: Lungs are clear to auscultation bilaterally. Cardiovascular: Regular rate and rhythm with S1-S2. Gastrointestinal: Abdomen is soft and slightly distended with very hypoactive bowel sounds. She is tender to palpation throughout the abdomen but more so today in the right flank and right back. No guarding or rebound tenderness. Skin: Warm and dry. Extremities: No cyanosis, clubbing, or edema. Radial and pedal pulses intact. Neurological: Alert. Cranial nerves 2-12 are grossly intact. No gross focal deficits to casual conversation. Psychiatric: Pleasant and cooperative with normal mood and flat affect. Objective Data Vital Signs Vital Signs: Vital Signs - 24 hr 07/09/24 14:00 07/09/24 19:43 07/09/24 20:00 Temperature 97.8 F 98.3 F Pulse Rate 81 92 Respiratory Rate 16 18 Blood Pressure 122/81 128/87 Pulse Oximetry 96 96 Oxygen Delivery Room Air 07/10/24 03:57 07/10/24 09:36 Temperature 98 F Pulse Rate 94 Respiratory Rate 18 Blood Pressure 120/82 Pulse Oximetry 95 94 Oxygen Delivery Room Air Intake/Output Intake/Output: Intake & Output 07/07/24 07/08/24 07/09/24 07/10/24 23:59 23:59 23:59 23:59 Intake Total 1480 3458 2446 350 Output Total 1800 1200 Balance 1480 3458 646 -850 Meds/Results Medications: Active Medications Generic Name Dose Route Start Last Admin Trade Name Freq PRN Reason Stop Dose Admin Diazepam 2 mg 07/10/24 08:56 07/10/24 09:17 Diazepam Inj (*Crx) 10 Mg/2 Ml Syringe IV PUSH 2 mg Q4HR PRN Administration Muscle Spasm Hydromorphone HCl 1 mg 07/03/24 01:33 07/10/24 06:30 Hydromorphone Hcl Inj (*Crx) 1 Mg/Ml Syr IV PUSH 1 mg Q4H PRN Administration Pain Rated 7-10 Meropenem 1 gm in 100 mls @ 200 mls/hr 07/06/24 14:00 07/10/24 05:59 IVPB Infused Q8HR MALINA Infusion Dextrose 1,000 mls @ 50 mls/hr 07/07/24 13:44 Dextrose 10% IV CONT .Q20H PRN if PN is interrupted Amino Acids/Electrolytes/Dextrose 2,000 mls @ 80 mls/hr 07/07/24 16:00 07/09/24 15:42 Clinimix E 4.25%/5% Solution IV CONT 80 mls/hr .Q24H MALINA Administration Protocol Fat Emulsion Intravenous 250 mls @ 20.833 mls/hr 07/07/24 16:00 07/10/24 03:43 Lipids 20% IVPB Infused Q24H MALINA Infusion Ondansetron HCl 4 mg 07/05/24 18:08 Ondansetron Inj 4 Mg/2 Ml Vial IV PUSH Q4H PRN Nausea Sodium Chloride 20 ml 07/09/24 11:42 Central Line Flush IV PUSH PRN PRN after blood draws Sodium Chloride 10 ml 07/09/24 11:42 Central Line Flush IV PUSH PRN PRN with TPN bag changes Sodium Chloride 10 ml 07/09/24 14:00 07/10/24 05:29 Central Line Flush IV PUSH 10 ml Q8HR MALINA Administration Radiology Results: ITS Impressions Abdomen/Pelvis CT 07/02/24 23:45 IMPRESSION: Small left pleural effusion. Trace pericardial effusion. Minimal intrahepatic bile duct dilation, probably secondary to cholecystectomy, correlate with liver enzymes. Large peripancreatic fluid collection, increased in size, extending into the gallbladder fossa, central mesentery, and bilateral paracolic gutters, likely representing walled off necrosis. Mesenteric lymphadenopathy. Chest X-Ray 07/09/24 11:52 IMPRESSION: Left basilar atelectasis versus pneumonia. Labs Labs: Laboratory Results - last 24 hr 07/09/24 07/09/24 07/09/24 11:58 18:38 23:34 Sodium Potassium Chloride Carbon Dioxide Anion Gap BUN Creatinine Estim Creat Clear Calc Estimated GFR Glucose POC Capillary Glucose 114 H 112 H 108 H Calcium Phosphorus 07/10/24 07/10/24 04:02 05:27 Sodium 132 L Potassium 3.8 Chloride 100 Carbon Dioxide 32 H Anion Gap 0 L BUN 13 Creatinine 0.39 L Estim Creat Clear Calc Not Reportable Estimated GFR > 60 Glucose 98 POC Capillary Glucose 116 H Calcium 7.4 L Phosphorus 3.3 Quality VTE Prophylaxis VTE prophylaxis: mechanical ordered
--- NOTE | 2024-07-10 09:50 | PC.NURSE ---
pt returned from CT
[2024-07-10 11:55] LABS: Basophils Absolute Auto 0.1 K/mm3 (0.0-0.1); Basophils Percent Auto 0.6 % (0.2-1.2); Eosinophils Absolute Auto 0.2 K/mm3 (0-0.3); Eosinophils Percent Auto 1.1 % (0-4.4); Hematocrit 28.7 % (37.0-47.0); Hemoglobin 9.3 g/dL (12.0-15.0); Immature Granulocyte Absolute 0.13 K/mm3 (0.00-0.031); Lymphocytes Absolute Auto 2.09 K/mm3 (0.9-3.2); Lymphocytes Percent Auto 15.7 % (18.3-44.2); Mean Corpuscular HGB Conc 32.4 g/dl (32-36); Mean Corpuscular Hemoglobin 29.5 pg (26-34); Mean Corpuscular Volume 91.1 fl (80-100); Mean Platelet Volume 8.9 fl (7.4-10.4); Monocytes Absolute Auto 0.7 K/mm3 (0.1-0.6); Monocytes Percent Auto 5.2 % (2.6-8.5); Neutrophils Absolute Auto 10.2 K/mm3 (1.3-6.7); Neutrophils Percent Auto 76.4 % (45.5-73.1); Platelet Count Result 336 k/mm3 (150-375); Red Blood Count 3.15 M/mm3 (4.2-5.4); Red Cell Distribution Width 13.2 % (11.5-14.5); White Blood Count 13.3 K/mm3 (4.5-10.0)
[2024-07-10 12:30] LABS: Glucose Point of Care 120 mg/dl (65-105)
[2024-07-10 13:13] LABS: Triglycerides 145 mg/dL (<150)
--- NOTE | 2024-07-10 13:17 | PCNFU ---
Nutrition Follow-Up Complete: Inadequate energy intake related to GI intolerance as evidenced by vomiting, abdominal pain Goal: Meet estimated nutrition needs Patient will continue current goal. Pt current nutrition is PPN at 80 ml/hr. Last recorded weight is 67.5 kg, down from 71.6 kg on admit. Bowel Motility: Last reported BM 07/09 Labs Reviewed: Cr 0.34, Na 132 Meds Noted: Clinimix E 4.25/5 at 80 ml/hr with Lipids, Meropenem. Skin: WNL Additional Notes: Patient remains NPO. PPN started on 07/07, providing 1153 kcal/82 gm protein. Currently meeting 64% kcal needs and 100% protein needs. Patient plan is to transfer to [facility] awaiting bed availability. Agree with diet orders at this time. Monitoring PPN, plan of care, labs, meds Follow up Saturday/Saturday
[2024-07-10 13:28] LABS: Add Urine Microscopic? NO; Appearance Urine Clear (Clear); Bilirubin Urine Negative (Negative); Blood Urine Negative (Negative); Color Urine Yellow (Yellow); Glucose Urine UA Negative (Negative); Ketones Urine Negative (Negative); Leukocyte Esterase Ur Negative LEU/UL (Negative); Nitrate Urine Negative (Negative); Protein Urine Negative (Negative); Specific Grav Ur 1.038 (1.001-1.035); Urobilinogen Urine 0.2 mg/dL (<2.0); pH Urine 7.5 (5.0-9.0)
[2024-07-10 14:00] VITALS: BP 119/85; PULSE 95; RESP 14; O2SAT 95
--- NOTE | 2024-07-10 14:13 | P.PNGI_ITS ---
Progress Note: A&P Assessment and Plan (1) Necrotizing pancreatitis: Code(s): K85.91 - Acute pancreatitis with uninfected necrosis, unspecified Status: Acute Assessment and Plan: repeat CT scan with still large fluid collection (slightly decrease in size)- possible pseudocyst, wbc 13k (empirically on iv abx) she is still awaiting transfer to [facility]- will need evaluation with EUS and possible drainage of large fluid collection- probably this is causing also GOO Also nasojejunal tube at ligament of Treitz, will try again to start enteral feeding if possible at slow rate to see if will tolerate this time and try to wean off TPN if possible (2) Walled-off necrosis of pancreas: Code(s): K86.89 - Other specified diseases of pancreas Status: Acute Assessment and Plan: transfer pending she has been on abx (3) Malnutrition: Code(s): E46 - Unspecified protein-calorie malnutrition Status: Acute Assessment and Plan: not tolerating tube feeding- ? try again at lower rate continue with TPN in the meantime (4) Nausea and vomiting: Qualifiers: Vomiting type: bilious vomiting Qualified Code(s): R11.14 - Bilious vomiting Code(s): R11.2 - Nausea with vomiting, unspecified Status: Acute Subjective Date/time seen: 07/10/24 14:13 Interval history: similar pain, no changes Review of Systems Review of Systems: All systems reviewed & are unremarkable except as noted in HPI and below Exam Const: Other: DHT in place HENMT: Face/Nose/Sinus: Normal nares present Eyes: General: appearance normal, both eyes and all related structures Neck: Neck: supple Resp: Effort & Inspection: normal respiratory effort Auscultation: no crackles and diminished lung sounds Cardio: Rate: regular rate GI: GI Palp: Yes Tenderness to palpation present (GI) (mild ttp, no rebound) Auscultation: normal bowel sounds Skin: General skin exam: normal color Neuro: Speech: normal speech Motor exam (neuro): 5/5 motor strength present throughout Extrem: General: normal to inspection Psych: Mental Status: mental status grossly normal Objective Data Vital Signs Vital Signs: Vital Signs - 24 hr 07/09/24 19:43 07/09/24 20:00 07/10/24 03:57 Temperature 98.3 F 98 F Pulse Rate 92 94 Respiratory Rate 18 18 Blood Pressure 128/87 120/82 Pulse Oximetry 96 95 Oxygen Delivery Room Air 07/10/24 09:10 07/10/24 09:36 Temperature Pulse Rate Respiratory Rate Blood Pressure Pulse Oximetry 94 Oxygen Delivery Room Air Room Air Intake/Output Intake/Output: Intake & Output 07/07/24 07/08/24 07/09/24 07/10/24 23:59 23:59 23:59 23:59 Intake Total 1480 3458 2446 350 Output Total 1800 1200 Balance 1480 3458 646 -850 Meds/Results Medications: Active Medications Generic Name Dose Route Start Last Admin Trade Name Freq PRN Reason Stop Dose Admin Diazepam 2 mg 07/10/24 08:56 07/10/24 09:17 Diazepam Inj (*Crx) 10 Mg/2 Ml Syringe IV PUSH 2 mg Q4HR PRN Administration Muscle Spasm Hydromorphone HCl 1 mg 07/03/24 01:33 07/10/24 11:41 Hydromorphone Hcl Inj (*Crx) 1 Mg/Ml Syr IV PUSH 1 mg Q4H PRN Administration Pain Rated 7-10 Meropenem 1 gm in 100 mls @ 200 mls/hr 07/06/24 14:00 07/10/24 13:26 IVPB 200 mls/hr Q8HR MALINA Administration Dextrose 1,000 mls @ 50 mls/hr 07/07/24 13:44 Dextrose 10% IV CONT .Q20H PRN if PN is interrupted Amino Acids/Electrolytes/Dextrose 2,000 mls @ 80 mls/hr 07/07/24 16:00 07/09/24 15:42 Clinimix E 4.25%/5% Solution IV CONT 80 mls/hr .Q24H MALINA Administration Protocol Fat Emulsion Intravenous 250 mls @ 20.833 mls/hr 07/07/24 16:00 07/10/24 03:43 Lipids 20% IVPB Infused Q24H MALINA Infusion Ondansetron HCl 4 mg 07/05/24 18:08 Ondansetron Inj 4 Mg/2 Ml Vial IV PUSH Q4H PRN Nausea Sodium Chloride 20 ml 07/09/24 11:42 Central Line Flush IV PUSH PRN PRN after blood draws Sodium Chloride 10 ml 07/09/24 11:42 Central Line Flush IV PUSH PRN PRN with TPN bag changes Sodium Chloride 10 ml 07/09/24 14:00 07/10/24 13:26 Central Line Flush IV PUSH 10 ml Q8HR MALINA Administration Radiology Results: ITS Impressions Chest X-Ray 07/09/24 11:52 IMPRESSION: Left basilar atelectasis versus pneumonia. Abdomen/Pelvis CT 07/10/24 10:01 IMPRESSION: 1. 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 2. Enteric feeding tube in expected position with distal tip in the small bowel near the ligament of Treitz. Line 3. Additional small amount of nonloculated ascites in the abdomen and pelvis. 4. Fluid throughout the colon consistent with nonspecific diarrhea. 5. Unchanged 3.3 cm left adnexal cyst. Labs Labs: Laboratory Results - last 24 hr 07/09/24 07/09/24 07/10/24 18:38 23:34 04:02 WBC RBC Hgb Hct MCV MCH MCHC RDW Plt Count MPV Immature Gran % (Auto) Neut % (Auto) Lymph % (Auto) [place] % (Auto) Eos % (Auto) Baso % (Auto) Lymph # (Auto) [place] # (Auto) Eos # (Auto) Baso # (Auto) Abs Immat Gran (auto) Absolute Neuts (auto) Absolute Nucleated RBC Nucleated RBC % Sodium Potassium Chloride Carbon Dioxide Anion Gap BUN Creatinine Estim Creat Clear Calc Estimated GFR Glucose POC Capillary Glucose 112 H 108 H 116 H Calcium Phosphorus Triglycerides Urine Color Urine Appearance Urine pH Ur Specific [place] Urine Protein Urine Glucose (UA) Urine Ketones Ur Blood (Man) Urine Nitrate Urine Bilirubin Urine Urobilinogen Leukocyte Esterase Rfl 07/10/24 07/10/24 07/10/24 05:27 11:44 12:27 WBC 13.3 H RBC 3.15 L Hgb 9.3 L Hct 28.7 L MCV 91.1 MCH 29.5 MCHC 32.4 RDW 13.2 Plt Count 336 MPV 8.9 Immature Gran % (Auto) 1.0 H Neut % (Auto) 76.4 H Lymph % (Auto) 15.7 L [place] % (Auto) 5.2 Eos % (Auto) 1.1 Baso % (Auto) 0.6 Lymph # (Auto) 2.09 [place] # (Auto) 0.7 H Eos # (Auto) 0.2 Baso # (Auto) 0.1 Abs Immat Gran (auto) 0.13 H Absolute Neuts (auto) 10.2 H Absolute Nucleated RBC 0.000 Nucleated RBC % 0.0 Sodium 132 L Potassium 3.8 Chloride 100 Carbon Dioxide 32 H Anion Gap 0 L BUN 13 Creatinine 0.39 L Estim Creat Clear Calc Not Reportable Estimated GFR > 60 Glucose 98 POC Capillary Glucose 120 H Calcium 7.4 L Phosphorus 3.3 Triglycerides Urine Color Urine Appearance Urine pH Ur Specific [place] Urine Protein Urine Glucose (UA) Urine Ketones Ur Blood (Man) Urine Nitrate Urine Bilirubin Urine Urobilinogen Leukocyte Esterase Rfl 07/10/24 07/10/24 12:56 13:20 WBC RBC Hgb Hct MCV MCH MCHC RDW Plt Count MPV Immature Gran % (Auto) Neut % (Auto) Lymph % (Auto) [place] % (Auto) Eos % (Auto) Baso % (Auto) Lymph # (Auto) [place] # (Auto) Eos # (Auto) Baso # (Auto) Abs Immat Gran (auto) Absolute Neuts (auto) Absolute Nucleated RBC Nucleated RBC % Sodium Potassium Chloride Carbon Dioxide Anion Gap BUN Creatinine Estim Creat Clear Calc Estimated GFR Glucose POC Capillary Glucose Calcium Phosphorus Triglycerides 145 Urine Color Yellow Urine Appearance Clear Urine pH 7.5 Ur Specific [place] 1.038 H Urine Protein Negative Urine Glucose (UA) Negative Urine Ketones Negative Ur Blood (Man) Negative Urine Nitrate Negative Urine Bilirubin Negative Urine Urobilinogen 0.2 Leukocyte Esterase Rfl Negative
[2024-07-10] MEDS: AMINO ACIDS 4.25%/D5W/LYTES/CA 2,000 ML 80 ML IV CONT (16:20)
[2024-07-10] MEDS: FAT EMULSIONS IV 20% 250 ML 20.83 ML IVPB (16:20)
[2024-07-10] MEDS: ONDANSETRON INJ 4 MG/2 ML VIAL IV PUSH ×2 (17:01→21:17)
[2024-07-10 18:20] LABS: Glucose Point of Care 117 mg/dl (65-105)
[2024-07-10 19:57] VITALS: BP 120/87; PULSE 104; RESP 18; TEMP 36.8; O2SAT 97
[2024-07-10 22:10] LABS: Glucose Point of Care 110 mg/dl (65-105)
[2024-07-11 00:18] LABS: Glucose Point of Care 111 mg/dl (65-105)
[2024-07-11] MEDS: HYDROmorphone HCL INJ (*CRX) 1 MG/ML SYR IV PUSH ×3 (03:38→12:08)
[2024-07-11] MEDS: MEROPENEM 1 GM/NS 100 ML 1 GM/100 ML BAG IVPB (05:25)
[2024-07-11] MEDS: CENTRAL LINE FLUSH 10 ML IV PUSH (05:25)
[2024-07-11 05:36] LABS: Basophils Absolute Auto 0.1 K/mm3 (0.0-0.1); Basophils Percent Auto 0.4 % (0.2-1.2); Eosinophils Absolute Auto 0.2 K/mm3 (0-0.3); Eosinophils Percent Auto 1.4 % (0-4.4); Hematocrit 29.4 % (37.0-47.0); Hemoglobin 9.6 g/dL (12.0-15.0); Immature Granulocyte Absolute 0.12 K/mm3 (0.00-0.031); Immature Granulocyte Percent A 0.8 % (0-0.5); Lymphocytes Absolute Auto 1.73 K/mm3 (0.9-3.2); Lymphocytes Percent Auto 12.2 % (18.3-44.2); Mean Corpuscular HGB Conc 32.7 g/dl (32-36); Mean Corpuscular Hemoglobin 29.4 pg (26-34); Mean Corpuscular Volume 89.9 fl (80-100); Mean Platelet Volume 9.2 fl (7.4-10.4); Monocytes Absolute Auto 0.8 K/mm3 (0.1-0.6); Monocytes Percent Auto 5.4 % (2.6-8.5); Neutrophils Absolute Auto 11.3 K/mm3 (1.3-6.7); Neutrophils Percent Auto 79.8 % (45.5-73.1); Platelet Count Result 361 k/mm3 (150-375); Red Blood Count 3.27 M/mm3 (4.2-5.4); Red Cell Distribution Width 13.2 % (11.5-14.5); White Blood Count 14.2 K/mm3 (4.5-10.0)
[2024-07-11 05:49] LABS: Alanine Aminotransferase 21 U/L (6-35); Albumin Level 2.6 g/dL (3.5-5.1); Alkaline Phosphatase 90 U/L (38-126); Anion Gap 4 mmol/L (4-12); Aspartate Amino Transferase 44 U/L (14-36); Bilirubin,Total 0.7 mg/dL (0.2-1.3); Blood Urea Nitrogen 14 mg/dL (7-17); Calcium 7.5 mg/dL (8.4-10.2); Carbon Dioxide 31 mmol/L (22-30); Chloride 96 mmol/L (98-107); Estimated Glomerular Filt Rate > 60; Glucose 101 mg/dL (65-110); Phosphorus 3.8 mg/dL (2.5-4.5); Sodium 131 mmol/L (137-145)
[2024-07-11 06:00] VITALS: BP 107/70; PULSE 97; RESP 18; TEMP 36.7; O2SAT 96
[2024-07-11 07:15] LABS: Glucose Point of Care 115 mg/dl (65-105)
[2024-07-11] MEDS: ONDANSETRON INJ 4 MG/2 ML VIAL IV PUSH ×2 (07:55→12:08)
--- NOTE | 2024-07-11 09:32 | P.DS_ITS ---
DS: Admitting Diagnosis Discharge Date 07/11/2024 Admitting Diagnosis Acute pancreatitis DS: Discharge Diagnosis Discharge Diagnosis (1) Nausea and vomiting: Qualifiers: Vomiting type: bilious vomiting Qualified Code(s): R11.14 - Bilious vomiting Code(s): R11.2 - Nausea with vomiting, unspecified Status: Acute (2) Necrotizing pancreatitis: Code(s): K85.91 - Acute pancreatitis with uninfected necrosis, unspecified Status: Acute DS: Summary Hospital Course Reason for hospitalization: Copied from [facility] 07/05: This is a 43-year-old female with history of minimal change disease and recent hospitalization for abdominal pain and transaminitis status post cholecystectomy and ERCP complicated by suspected necrotizing pancreatitis for which she was transferred to [facility] who presented to the emergency department in the evening of 07/02/2024 with complaints of severe abdominal pain. The patient provides the following history. She was started on tube feeds although she did not tolerate nasogastric feedings and was discharged with a nasointestinal feeding tube. There were talks of possible percutaneous drainage however she improved with supportive care. She was discharged home on 07/01/2024 and within about 12 hours her pain became acutely worse. She denies fever, chills, sweats, chest pain, shortness of breath, cough, vomiting, diarrhea, and dysuria. In the ED: She has been afebrile since arrival. She was tachycardic on p resentation but that has improved with IV fluids and pain control. Initial labs were significant for WBC count of 30.8, hemoglobin 12.1, sodium 135, chloride 96, BUN 13, creatinine 0.67, glucose 141, lactic acid 0.6, total bilirubin 1.6, AST 45, ALT 57, alkaline phosphatase 164, lipase 3044. CT of the abdomen and pelvis showed a large peripancreatic fluid collection increased in size from prior imaging extending into the gallbladder fossa, central mesentery, bilateral pericolic gutters, likely representing walled-off necrosis. Transfer was initiated to [facility] where she has been accepted however she has been waiting in the emergency department now for 70 hours and she is being admitted to the floor for further care pending bed availability. Over the course of her ED stay, she received IV fluids, antiemetics, and analgesics. She was also started on cefepime and metronidazole. ED physician spoke with Dr. Boothe who recommends resuming her tube feeds as her lipase is improving as is her pain. Hospital Course: Rhonda Devlin was admitted for necrotizing pancreatitis after a recent cholecystectomy and ERCP. Found to have pancreatic fluid collections/pseudocysts on CT. No significant ETOH history and nonsmoker. Complicated by nausea/vomiting, likely gastric outlet obstruction from pseudocysts. WBC rebecca vated to 20 during admission, possible pneumonia on CT but on RA. Has an allergy to ampicillin (rash) so started on empiric meropenem. WBC improving. Mild hyponatremia. PICC line was placed 07/09 for PPN. Also has a dobhoff but not tolerating feeds. Had emesis 07/10, patient reported bilious, nonbloody. Zofran for nausea during admission. Also reported increased abdominal distention, stable since admission. Had a BM 07/10. Increased right flank and abdominal pain 07/[address] abd and pelvis to check for interval changes. CT showed mild interval decrease in size of a large organized peripheral enhancing peripancreatic fluid collection. Otherwise no acute findings showed GI consulted during admission. Dialudid since admission and valium started prn for pain overnight 07/10. Otherwise, potassium repleted and monitored anemia. Transferred to [facility] for continued care, consider drainage of pancreatic pseudocysts. 07/10/2024 CT abd/pelvis Small bilateral posterior layering pleural effusions, left greater than right with associated dependent atelectasis in the bilateral lower lobes. There is some central decreased attenuation within the collapsed portion of the left lower lobe which suggests possible superimposed pneumonia. Heart size is normal. No pericardial effusion. Weighted tip enteric feeding tube extends to the stomach and duodenum with distal tip in the region of the ligament of Treitz. Cholecystectomy clips the gallbladder fossa. Mild splenomegaly. Bilateral adrenal glands and kidneys are normal. Again seen is a large rim-enhancing multilobulated peripancreatic fluid collection which extends into the brenna hepatis and gallbladder fossa, caudally along the central mesentery and along the left and right paracolic gutters. On the left the craniocaudal extent measures approximately 22.7 cm. The collection appears slightly decreased in size with the collection positioned in the left upper quadrant along the inferior margin of the pancreas currently measuring 10.7 x 6.2 cm, previously 14.8 x 8.9 cm. There is an additional small amount of scattered nonloculated ascites in the abdomen and pelvis. There is homogeneous pancreatic parenchymal enhancement with no evident necrosis. Bladder, uterus and right adnexa are unremarkable. 3.3 cm left adnexal cyst. Fluid throughout the colon consistent with nonspecific diarrhea. No bowel obstruction. There is mild likely reactive mesenteric lymphadenopathy. Bones are unremarkable. IMPRESSION: 1. 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 2. Enteric feeding tube in expected position with distal tip in the small bowel near the ligament of Treitz. Line 3. Additional small amount of nonloculated ascites in the abdomen and pelvis. 4. Fluid throughout the colon consistent with nonspecific diarrhea. 5. Unchanged 3.3 cm left adnexal cyst. Status at Discharge Cognitive/behavioral status at discharge: A&Ox4 Time Spent with Patient Time attestation: Total time spent providing and/or coordinating discharge services:49 minutes. Gave report to U, Dr. Senior Exam Narrative: General - Awake and alert. No acute distress Eyes - PERRLA, EOM intact ENT - No thrush, No erythema Neck - No noticeable or palpable swelling Lymph Nodes - No lymphadenopathy Cardiovascular - RRR no m/r/g, no JVD Lungs: Clear to auscultation, No wheezing, use of accessory muscles, decreased bases Skin - Skin warm and dry, no wounds or rashes. Right arm PICC Abdomen - Normal bowel sounds, abdomen soft and generalized tenderness, mildly distended Extremities - No edema, cyanosis or clubbing Musculoskeletal - 5/5 strength, normal range of motion, no swollen or erythematous joints. Neurological ? Alert and oriented x 3, CN 2-12 grossly intact. Psych: Normal mood and affect DS: Data Data Completed and Pending Labs on day of discharge: Labs from last 24 hours 07/11/24 07/11/24 07/11/24 06:27 05:24 05:23 WBC 14.2 H RBC 3.27 L Hgb 9.6 L Hct 29.4 L MCV 89.9 MCH 29.4 MCHC 32.7 RDW 13.2 Plt Count 361 MPV 9.2 Immature Gran % (Auto) 0.8 H Neut % (Auto) 79.8 H Lymph % (Auto) 12.[address] [facility] % (Auto) 5.4 Eos % (Auto) 1.4 Baso % (Auto) 0.4 Lymph # (Auto) 1.73 [facility] # (Auto) 0.8 H Eos # (Auto) 0.2 Baso # (Auto) 0.1 Abs Immat Gran (auto) 0.12 H Absolute Neuts (auto) 11.3 H Absolute Nucleated RBC 0.000 Nucleated RBC % 0.0 Sodium 131 L Potassium 4.0 Chloride 96 L Carbon Dioxide 31 H Anion Gap 4 BUN 14 Creatinine 0.47 L Estim Creat Clear Calc Not Reportable Estimated GFR > 60 Glucose 101 POC Capillary Glucose 115 H Calcium 7.5 L Phosphorus 3.8 Total Bilirubin 0.7 AST 44 H ALT 21 Alkaline Phosphatase 90 Total Protein 6.0 L Albumin 2.6 L Triglycerides Urine Color Urine Appearance Urine pH Ur Specific [place] Urine Protein Urine Glucose (UA) Urine Ketones Ur Blood (Man) Urine Nitrate Urine Bilirubin Urine Urobilinogen Leukocyte Esterase Rfl 07/11/24 07/10/24 07/10/24 00:14 19:54 18:18 WBC RBC Hgb Hct MCV MCH MCHC RDW Plt Count MPV Immature Gran % (Auto) Neut % (Auto) Lymph % (Auto) [facility] % (Auto) Eos % (Auto) Baso % (Auto) Lymph # (Auto) [facility] # (Auto) Eos # (Auto) Baso # (Auto) Abs Immat Gran (auto) Absolute Neuts (auto) Absolute Nucleated RBC Nucleated RBC % Sodium Potassium Chloride Carbon Dioxide Anion Gap BUN Creatinine Estim Creat Clear Calc Estimated GFR Glucose POC Capillary Glucose 111 H 110 H 117 H Calcium Phosphorus Total Bilirubin AST ALT Alkaline Phosphatase Total Protein Albumin Triglycerides Urine Color Urine Appearance Urine pH Ur Specific [place] Urine Protein Urine Glucose (UA) Urine Ketones Ur Blood (Man) Urine Nitrate Urine Bilirubin Urine Urobilinogen Leukocyte Esterase Rfl 07/10/24 07/10/24 07/10/24 13:20 12:56 12:27 WBC RBC Hgb Hct MCV MCH MCHC RDW Plt Count MPV Immature Gran % (Auto) Neut % (Auto) Lymph % (Auto) [facility] % (Auto) Eos % (Auto) Baso % (Auto) Lymph # (Auto) [facility] # (Auto) Eos # (Auto) Baso # (Auto) Abs Immat Gran (auto) Absolute Neuts (auto) Absolute Nucleated RBC Nucleated RBC % Sodium Potassium Chloride Carbon Dioxide Anion Gap BUN Creatinine Estim Creat Clear Calc Estimated GFR Glucose POC Capillary Glucose 120 H Calcium Phosphorus Total Bilirubin AST ALT Alkaline Phosphatase Total Protein Albumin Triglycerides 145 Urine Color Yellow Urine Appearance Clear Urine pH 7.5 Ur Specific [place] 1.038 H Urine Protein Negative Urine Glucose (UA) Negative Urine Ketones Negative Ur Blood (Man) Negative Urine Nitrate Negative Urine Bilirubin Negative Urine Urobilinogen 0.2 Leukocyte Esterase Rfl Negative 07/10/24 11:44 WBC 13.3 H RBC 3.15 L Hgb 9.3 L Hct 28.7 L MCV 91.1 MCH 29.5 MCHC 32.4 RDW 13.2 Plt Count 336 MPV 8.9 Immature Gran % (Auto) 1.0 H Neut % (Auto) 76.4 H Lymph % (Auto) 15.[address] [facility] % (Auto) 5.2 Eos % (Auto) 1.1 Baso % (Auto) 0.6 Lymph # (Auto) 2.09 [facility] # (Auto) 0.7 H Eos # (Auto) 0.2 Baso # (Auto) 0.1 Abs Immat Gran (auto) 0.13 H Absolute Neuts (auto) 10.2 H Absolute Nucleated RBC 0.000 Nucleated RBC % 0.0 Sodium Potassium Chloride Carbon Dioxide Anion Gap BUN Creatinine Estim Creat Clear Calc Estimated GFR Glucose POC Capillary Glucose Calcium Phosphorus Total Bilirubin AST ALT Alkaline Phosphatase Total Protein Albumin Triglycerides Urine Color Urine Appearance Urine pH Ur Specific [place] Urine Protein Urine Glucose (UA) Urine Ketones Ur Blood (Man) Urine Nitrate Urine Bilirubin Urine Urobilinogen Leukocyte Esterase Rfl Discharge Plan Discharge Attending physician on discharge: Marina Cooley Consulting providers: Kyle Boothe Discharging Clinician: Marina Cooley Anticipated Discharge Date/Time: 07/11/24 09:25 Patient Disposition: Other Activity: may shower Diet: regular Wound Care Instructions: other - see discharge instructions Discharge Instructions: Right arm PICC dressing changes per Hospital protocol Patient Instructions: Antibiotic Form Patient Language: Yoruba Stand Alone Forms: General Discharge Information Follow-up/Referrals: Jason,Basilia Irene MD [Primary Care Provider] - (1-2 weeks after discharge from hospital) Discharge Medications: New meropenem 1 gram Recon Soln 1 g IV Q8HR No Action No Home Medications Date of admission: 07/07/24 15:55 Primary Care Provider: Jason,Basilia Irene Admitting Provider: Edy Roman Attending physician on admission: Marina Cooley Condition: Stable Quality VTE Prophylaxis VTE prophylaxis: pharmacologic ordered Hospitalist MIPS Heart Failure (Exclusion) Patient has history of Heart Transplant or Left Ventricular Assistive Device?: No IF YES, STOP HERE Heart Failure (Qualifier) Patient has current or prior documentation of LVEF less than or equal to 40%, or mod/servere depressed LVSF?: No IF NO, STOP HERE
[2024-07-11] MEDS: SODIUM CHLORIDE 0.9% IV 1,000 ML 50 ML IV CONT (10:15)
[2024-07-11 11:57] LABS: Glucose Point of Care 109 mg/dl (65-105)
== END 2024-07-11 12:30 | disposition short-term general hospital (02) | DRG 393 ==
LOC: ANHED 07-03 02:01 → ANH2MED 07-05 19:30
PROVIDERS: Emergency Medicine; Hospitalist; Nurse Practitioner Adult Health; Nurse Practitioner Gerontology; Physician Assistant; Admitting Provider Internal Medicine; Emergency Provider Emergency Medicine; PCP Internal Medicine; Visit Provider Nurse Practitioner Acute Care
DX: K91.89 Other postprocedural complications and disorders of digestive system (principal); K85.91 Acute pancreatitis with uninfected necrosis, unspecified; E87.1 Hypo-osmolality and hyponatremia; E46 Unspecified protein-calorie malnutrition; K31.1 Adult hypertrophic pyloric stenosis; K86.3 Pseudocyst of pancreas; D64.9 Anemia, unspecified; E87.6 Hypokalemia; R63.0 Anorexia; Z68.29 Body mass index [BMI] 29.0-29.9, adult; Z90.49 Acquired absence of other specified parts of digestive tract
CPT/HCPCS: 36415; 36569; 74177; 80048; 80053; 81001; 81003; 81025; 82607; 82728; 82746; 82948; 83540; 83550; 83605; 83690; 83735; 84100; 84134; 84443; 84478; 85025; 85027; 87040; 87086; 96361; 96365; 96366; 96367; 96374; 96375; 96376; 99285; A9270; G0378; J0613; J0692; J1171; J1836; J2003; J2185; J2405; J3360; J3480; J7030; J7040; Q9967